=== PATIENT | female | born 1945 | race Caucasian/White ===

== ENCOUNTER 2021-12-22 21:03 | Emergency (ER) | payer MEDICARE, OTHER, SELFPAY ==
[2021-12-22 21:09] VITALS: BP 175/80; PULSE 86; RESP 16; O2SAT 99
--- OUTSIDE RECORDS SUMMARY | 2021-12-22 21:52 | XMS_ITS | Encounter Summary ---
:1945 Author Organization [facility] Address [address] [place] [address] Care Team Providers Name Role Phone Suhail Lemus M.D. Primary Care Provider Reason for Referral Outpatient (Routine) - Closed Specialty Diagnoses / Procedures Referred By Contact Refer red To Contact Family Medicine Kalie Nance APRN, [facility] Region C.N.P., D.N.P. [address] [place] [phone] Referral ID Status Reason Start Date Expiration Date Visits Requ ested Visits Authorized [id number] Closed 2021 2022 1 1 utpatient (Routine) - Authorized Specialty Diagnoses / Procedures Referred By Contact Refer red To Contact Kalie Nance APRN, C.N.PSariah, [facility] D.N.P. [address] [place] [phone] Referral ID Status Reason Start Date Expiration Date Visits V isits Requested Authorized [id number] Authorized 2021 2022 1 1 Reason for Visit Reason Comments Shortness of Breath Appointment Request (Routine) - Closed Specialty Diagnoses / Procedures Referred By Contact Refer red To Contact Family Medicine Referral ID Status Reason Start Date Expiration Date Visits Requ ested Visits Authorized [id number] Closed 09/14/2021 09/14/2022 1 1 Encounter Details Date Type Department Care Team Description 2021 Office Visit Department of Family Kalie Nance, Hy pertension Essential Primary (Primary Dx); MedicineRoni APRN, C.N.P., Apnea Slee p Obstructive; [facility], in D.N.P. Impaired Fasting Glucose; [place] [address] Screening L ipid; [facility] Morbid Obesity (HCC); [address] [place] [address] Body Mass Index 50.0 To 59.9 Adult (HCC); [place] [address] Insufficiency Venous [id number] Social History Tobacco Use Types Packs/Day Years Used Date Smoking Tobacco: Former Smokeless Tobacco: Never Alcohol Use Standard Drinks/Week Comments No 0 (1 standard drink = 0.6 oz pure alcoho l) Sex Assigned at Date Recorded Not on file documented as of this encounter Last Filed Vital Signs Vital Sign Reading Time Taken Comments Blood Pressure 177/88 2021 8:28 AM CDT Pulse 98 2021 7:56 AM CDT Temperature 36.6 ??C (97.9 ??F) 2021 7:56 AM CDT Respiratory Rate - - Oxygen Saturation 97% 2021 7:56 AM CDT Inhaled Oxygen Concentration - - Weight 128 kg (282 lb 3 oz) 2021 7:56 AM CDT Height 158.5 cm (5' 2.4) 2021 7:56 AM CDT Body Mass Index 50.95 2021 7:56 AM CDT documented in this encounter Progress Notes Kalie Nance APRN, C.N.P., D.N.P. - 2021 8:00 AM CDT SUBJECTIVE CHIEF COMPLAINT/REASON FOR VISIT Kristen Pederson is a 76 y.o. female who presents for evaluation of Shortness of Breath. HISTORY OF PRESENT ILLNESS Kristen Pederson presents for evaluation of elevated blood pressure, lower extremity swelling and shortness of breath. She reports that she was previously prescribed amlodipine to felt that itwas causing her lower extremity edema so she self discontinued this. She was previously on losartan for elevated blood pressure however this was discontinued, she is unsure why or when this was discontinued. She does not recall any specific negative side effects from this medication. She reports that she is motivated to lose weight. She has successfully lost several lb since her last visit. She has been working with her daughter for healthy dietary changes as they live together to achieve this. She has an area of erythema and healing blistering area over her left anterior moore. This is mildly itchy. OBJECTIVE PHYSICAL EXAMINATION Vital Signs: BP (!) 177/88 Pulse 98 Temp 36.6 ??C (Temporal) Ht 158.5 cm Wt 128 kg SpO2 97% BMI 50.95 kg/m?? Body mass index is 50.95 kg/m??. General: No acute distress. HEENT: Normocephalic. EOMI, PERRL, Canals patent, TMs normal. Oropharynx without lesion of mucosa. Neck: No nodes, no thyromegaly. No bruit auscultated. Heart: Regular rate and rhythm. No murmurs, gallops or rubs noted. Lungs: Non-labored breathing. Clear to auscultation bilaterally. No expiratory wheeze. Abdomen: Nontender to palpation. No hepato-splenomegaly. No mass. Normal bowel sounds in all 4 quadrants. Extremities: Bilateral lower extremities edema. No neurovascular compromise. No cyanosis, clubbing or edema. Skin: Left anterior moore has an area of erythema and blistering. Neuro: Alert and oriented x3, nonfocal, moving all 4 extremities. CN II-XII grossly intact. Psych: Affect is appropriate. ASSESSMENT / PLAN 1. Hypertension Essential Primary Blood pressure elevated today. Recommend treatment with losartan-HCTZ and recheck in two weeks. If it continues to be elevated, will increase dose to Losartan 50 and HCTZ 25mg pending lab stability. - Sodium; Future - Potassium; Future - Creatinine with Estimated GFR; Future 2. Apnea Sleep Obstructive Recommend 3. Impaired Fasting Glucose Will obtain labs at follow up in 2 weeks. - Hemoglobin A1c; Future 4. Screening Lipid Will obtain labs at follow up in 2 weeks. - Lipid Panel; Future 5. Morbid Obesity (HCC) 6. Body Mass Index 50.0 To 59.9 Adult (HCC) Lifestyle, diet, and exercise reviewed. Recommend modest calorie reduction, counting calories, increasing activity and consideration of use of apps to help with monitoring. Discussed initiating metformin and/or trulicity if her A1c is elevated to help with weight loss. 7. Veinous Insufficiency Recommend bilateral compression stockings. Topical steroid prescribed to reduce inflammation and swelling of this area. Patient was instructed to follow up in primary care if symptoms are worsening or there is no improvement over the next several days. Plan was discussed with patient and is in agreement with plan. All questions were answered, side effects of any/all new medications were discussed. Patient left in no acute distress. Ready to learn. No apparent learning barriers were identified. Learning preferences include listening. Explained diagnosis and treatment plan. Patient/Child/Caregiver expressed understanding of the content. Kalie Nance APRN, C.N.P., D.N.P. Total time: 26 minutes documented in this encounter Plan of Treatment Scheduled Referrals Name Type Priority Associated Order Schedule Diagnoses Primary care Outpatient Referral Routine Expected : hypertension nurse 2 visit (clinic) (Approximate) , Expires: 12/16/2022 Family Medicine Outpatient Referral Routine Expec arabella: office visit (clinic) 2021 (Approximate), Expires: 12/16/2022 documented as of this encounter Results (ABNORMAL) Lipid Panel (10/30/2021 9:29 AM CDT) P athologist Signature Triglycerides 126 mg/dL 10/30/2021 CNFL 9:56 AM CDT Comment: ----REFERENCE VALUE---- Normal: <150 mg/dL Borderline High: 150-199 mg/dL High: 200-499 mg/dL Very High: > or =500 mg/dL Cholesterol, Total 130 mg/dL 10/30/2021 9:56 AM CD T CNFL Comment: ----REFERENCE VALUE---- Desirable: < 200 mg/dL Borderline High: 200 - 239 mg/dL High: > or = 240 mg/dL Cholesterol, LDL, Calculated 75 mg/dL 10/30/2021 9:56 AM CDT CNFL Comment: ----REFERENCE VALUE---- Desirable: <100 mg/dL Above Desirable: 100-129 mg/dL Borderline High: 130-159 mg/dL High: 160-189 mg/dL Very High: >=190 mg/dL ----ADDITIONAL INFORMATION---- LDL cholesterol calculated using the Lindo/NIH equation. Cholesterol, HDL 32 (L) >=50 mg/dL 10/30/2021 9:56 AM CDT CNFL Cholesterol, Non-HDL, Calculated 98 mg/dL 022 9:56 AM CDT CNFL Comment: ----REFERENCE VALUE---- Desirable: <130 mg/dL Above Desirable: 130-159 mg/dL Borderline High: 160-189 mg/dL High: 190-219 mg/dL Very High: > or =220 mg/dL Fasting (8 HR or more) Yes 10/30/2021 9:29 A M CDT CNFL Specimen Anatomical Collection Method Collection Time Receive d Time (Source) Location / / Volume Laterality Blood (Blood, 10/30/2021 9:29 AM 10/31/19 9:29 Venous) CDT AM CDT Kalie Nance APRN C.N.P., D.N.P. LAB BLOOD ADD-ON Performing Organization Address City/State/ZIP Code Phon e Number [facility]- [address] [place] [address] [place] [address] [place] [address] System in [place] [address] [address] (ABNORMAL) Creatinine with Estimated GFR (10/30/2021 9:29 AM CDT) athologist Signature Creatinine 0.98 0.59 - 10/30/2021 CNFL 1.04 mg/dL 9:56 AM CDT eGFR-Black/Afric 65 >=60 10/30/2021 CNFL an [place] mL/min/BSA 9:56 AM CDT Comment: ----ADDITIONAL INFORMATION---- Estimated GFR calculated using the 2009 CKD_EPI creatinine equation. eGFR Non-Black/ 56 (L) >=60 mL/min/BSA 10/30/2021 9:56 AM CDT CNFL [place] Comment: ----ADDITIONAL INFORMATION---- Estimated GFR calculated using the 2009 CKD_EPI creatinine equation. Specimen Anatomical Collection Method Collection Time Receive d Time (Source) Location / / Volume Laterality Blood (Blood, 10/30/2021 9:29 AM 10/31/19 9:29 Venous) CDT AM CDT Brayan Brumfield APRN.N.P., D.N.P. LAB BLOOD ADD-ON Performing Organization Address [facility] Phon e Number [address] [address] [place] [address] System in [place] [address] [address] Potassium (10/30/2021 9:29 AM CDT) P athologist Signature Potassium, P 4.0 3.6 - 5.2 10/30/2021 CNFL mmol/L 9:56 AM CDT Specimen Anatomical Collection Method Collection Time Receive d Time (Source) Location / / Volume Laterality Blood (Blood, 10/30/2021 9:29 AM 10/31/19 9:29 Venous) CDT AM CDT Kalie Nance APRN, Brayan.N.P., D.N.P. LAB BLOOD ADD-ON Performing Organization Address [facility] Phon e Number [address] [place] [address] [place] [address] System in [place] [address] [address] Sodium (10/30/2021 9:29 AM CDT) P athologist Signature Sodium, P 138 135 - 145 10/30/2021 9:56 CNFL mmol/L AM CDT Specimen Anatomical Collection Method Collection Time Receive d Time (Source) Location / / Volume Laterality Blood (Blood, 10/30/2021 9:29 AM 10/31/19 9:29 Venous) CDT AM CDT Brayan Brumfield APRN.N.P., D.N.P. LAB BLOOD ADD-ON Performing Organization Address [facility] Phon e Number [facility]- [address] [place] [address] [place] [address] System [address] (ABNORMAL) Hemoglobin A1c (10/30/2021 9:27 AM CDT) P athologist Signature Hemoglobin A1c, 6.7 (H) 4.2 - 5.6 10/30/2021 CNFL B % 9:44 AM CDT Comment: Hemoglobin A1c values greater than or eq ual to 6.5 percent are diagnostic for diabetes mellitus. ?? Diagnosis should be confirmed by repeat testing. ??In diabet ic patients, HbA1c goals should be discussed with healthcar e provider. Specimen Anatomical Collection Method Collection Time Receive d Time (Source) Location / / Volume Laterality Blood (Blood, 10/30/2021 9:27 AM 10/31/19 9:29 Venous) CDT AM CDT Merry Brumfield APRNN.Zulma, D.N.P. LAB BLOOD ADD-ON Performing Organization Address [facility] Phon e Number [facility]- [address] [place] [address] [place] [address] System in [address] documented in this encounter Visit Diagnoses Diagnosis Hypertension Essential Primary - Primary Apnea Sleep Obstructive Impaired Fasting Glucose Screening Lipid Morbid Obesity (HCC) Body Mass Index 50.0 To 59.9 Adult (HCC) Insufficiency Venous documented in this encounter Additional Health Concerns Assessment Noted Time PHQ-9 Depression Total Score: 3 05/13/2013 2:06 PM 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 PCP - General Family Medicine 09/19/[address] [place] [phone] documented as of this encounter
--- OUTSIDE RECORDS SUMMARY | 2021-12-22 21:52 | XMS_ITS | Encounter Summary ---
:1945 Author Organization [facility] Address [address] [place] [address] Care Team Providers Name Role Phone Suhail Lemus M.D. Primary Care Provider Encounter Details Date Type Department Care Team Description 11/22/2021 Clinical Communication Department of Damir Hwang, Medicine, Roni Szymanski M.D. [facility], in [address] [phone] Social History Tobacco Use Types Packs/Day Years Used Date Smoking Tobacco: Former Smokeless Tobacco: Never Alcohol Use Standard Drinks/Week Comments No 0 (1 standard drink = 0.6 oz pure alcoho l) Sex Assigned at Date Recorded Not on file documented as of this encounter Plan of Treatment Not on filedocumented as of this encounter Visit Diagnoses Not on filedocumented in this encounter Additional Health Concerns Assessment Noted Time PHQ-9 Depression Total Score: 3 05/13/2013 2:06 PM POSTIE documented as of this encounter Care Teams Senior Mobile Web Developer Relationship Specialty Start Date End Date Suhail Lemus M.D. PCP - General Family Medicine 09/19/[address] [place] [phone] documented as of this encounter
--- OUTSIDE RECORDS SUMMARY | 2021-12-22 21:52 | XMS_ITS | Encounter Summary ---
:1945 Author Organization [facility] Address [address] [place] [address] Care Team Providers Name Role Phone Suhail Lemus M.D. Primary Care Provider Reason for Referral Outpatient (Routine) - Authorized Specialty Diagnoses / Procedures Referred By Contact Refer red To Contact Family Suhail Jiménez M. D. [address] [phone] Referral ID Status Reason Start Date Expiration Date Visits V isits Requested Authorized [id number] Authorized 11/22/2021 11/21/2024 1 1 Reason for Visit Reason Comments Follow-up Blood test and bp elevated s top taking medication can't lose weight, swelling of the ankles and f eet hated the blood pressure medication Outpatient (Routine) - Closed Specialty Diagnoses / Procedures Referred By Contact Refer red To Contact Family Medicine Kalie Nance APRN, [facility] C.N.P., D.N.P. [address] [place] [phone] Referral ID Status Reason Start Date Expiration Date Visits Requ ested Visits Authorized [id number] Closed 2021 2022 1 1 Encounter Details Date Type Department Care Team Description 11/22/2021 Office Visit Department of Suhail Hwang Hy pertension Essential Primary (Primary Dx); Reza Victoria M.D. Morbid Obesity (HCC); [facility], in [address] [place] [address] Leukocyt osis [address] [phone] [place] [phone] (Work) [phone] Social History Tobacco Use Types Packs/Day Years Used Date Smoking Tobacco: Former Smokeless Tobacco: Never Tobacco Cessation: Counseling Given: Not Answered Alcohol Use Standard Drinks/Week Comments No 0 (1 standard drink = 0.6 oz pure alcoho l) Sex Assigned at Date Recorded Not on file documented as of this encounter Last Filed Vital Signs Vital Sign Reading Time Taken Comments Blood Pressure 178/95 11/22/2021 7:53 AM CDT Pulse 106 11/22/2021 7:53 AM CDT Temperature 36.4 ??C (97.5 ??F) 11/22/2021 7:53 AM CDT Respiratory Rate - - Oxygen Saturation 97% 11/22/2021 7:53 AM CDT Inhaled Oxygen Concentration - - Weight 127 kg (279 lb 1.6 oz) 11/22/2021 7:53 AM CDT Height - - Body Mass Index 50.39 2021 7:56 AM CDT documented in this encounter Progress Notes Suhail Lemus M.D. - 11/22/2021 8:00 AM CDT SUBJECTIVE CHIEF COMPLAINT / REASON FOR VISIT Kristen is a 76 y.o. female who presents for evaluation of Follow-up (Blood test and bp elevated stop taking medication can't lose weight, swelling of the ankles and feet hated the blood pressure medication ). HISTORY OF PRESENT ILLNESS Kristen is a pleasant 76 y.o. female who presents to clinic today for ongoing evaluation of hypertension, swelling and obesity. She is been working hard towards weight loss but does have intermittent indiscretions. She is lost approximately 1 kg over the past two months. She states her swelling has persis arabella and does cause her limitations with walking. She is been recommended compression garments which he is not utilized. She is not been taking her blood pressure medication as she felt it increased herswelling. No lightheadedness, dizziness, headaches or chest pain. The following portions of the patient's history were reviewed and updated as appropriate: allergies,current medications, family history, medical history, social history, surgical history, and problem list. Brief Review of Systems: A brief review of systems was negative except for that mentioned in the history of present of illness. OBJECTIVE PHYSICAL EXAM BP (!) 178/95 (BP Location: Left arm, Patient Position: Sitting, Cuff Size: Large) Pulse 106 Temp 36.4 ??C (Temporal) Wt 127 kg SpO2 97% BMI 50.39 kg/m?? Body mass index is 50.39 kg/m??. GENERAL: Patient is in no distress. Capable of full communication without difficulty. Patient is polite and cooperative. HEART: Regular rate and rhythm. No murmurs, gallops or rubs noted. LUNGS: Clear to auscultation bilaterally. No expiratory wheeze. No accessory muscles of respiration noted. EXTREMITIES: No neurovascular compromise. 2+ pitting edema to below the knee bilateral. Dorsal pedalpulses present. NEURO: Alert and oriented x3, nonfocal, moving all 4 extremities. CN II-XII grossly intact. PSYCH: Affect is appropriate ASSESSMENT / PLAN #1 Hypertension Essential Primary Blood pressure significantly elevated above goal. Recommend restarting losartan 50 mg daily. Will also start Lasix 20 mg with potassium to help with both blood pressure and edema. Encouraged her to wear compression garments and elevate as this will also help. #2 Morbid Obesity (HCC) Discussed dietary lifestyle measures. Monitor. #3 Leukocytosis Will recheck CBC at next visit as patient is significantly concerned about her elevated white blood count seen in the emergency department. Will follow up with results once available. Total time 32 minutes. Patient was instructed to follow up in [...] plan. Patient/Child/Caregiver expressed understanding of the content. Suhail Lemus M.D. documented in this encounter Plan of Treatment Scheduled Orders Name Type Priority Associated Diagnoses Order S [facility] Basic Metabolic Panel Lab Routine Hypertension Essent ial Expected: 12/06/2021 Primary (Approximate), Morbid Obesity (HCC) Expires : 11/22/2022 CBC with Differential, Lab Routine Leukocytosis Expec arabella: 12/06/2021 Blood (Approximate), Expires: 2022 Scheduled Referrals Name Type Priority Associated Diagnoses Order S [facility] Family Medicine Outpatient Referral Routine Expec arabella: office visit 12/06/2021 (clinic) (Approximate), Expires: 02/21/2023 documented as of this encounter Visit Diagnoses Diagnosis Hypertension Essential Primary - Primary Morbid Obesity (HCC) Leukocytosis documented in this encounter Additional Health Concerns Assessment Noted Time PHQ-9 Depression Total Score: 3 05/13/2013 2:06 PM NUTRITION COUNSELOR documented as of this encounter Care Teams Inner Diameter Grinder Tool Relationship Specialty Start Date End Date Suhail Lemus M.D. PCP - General Family Medicine 09/19/[address] [place] [phone] documented as of this encounter
--- OUTSIDE RECORDS SUMMARY | 2021-12-22 21:52 | XMS_ITS | Clinical Summary ---
:1945 Author Organization [facility] [place] [address] Care Team Providers Name Role Phone Pcp, No Primary Care Provider Unavailable Allergies No known active allergies Medications Medication Sig Dispensed Refills Start Date End Date Status nystatin powder Apply 1 Strip 1 Bottle 1 04/23/2019 Active (MYCOSTATIN) topically to powderIndications: affected Rash area(s) 4 times daily. doxycycline Take 1 Capsule 90 Capsule 3 03/03/2021 A ctive (VIBRAMYCIN) 100 (100 mg) by mg mouth once capsuleIndications daily. : Rosacea fluticasone (50 Inhale 2 Sprays 16 g 11 03/03/2021 Active mcg per actuation) to both nasal solution nostrils 2 (FLONASE)Indicatio times daily. ns: Chronic pansinusitis azelaic acid To cheeks twice 50 g 03/03/2021 Active (FINACEA) 15 % daily for topical rosacea gelIndications: Rosacea amLODIPine Take 1 Tablet 90 tablet. 3 03/03/2021 Act molina (NORVASC) 10 mg (10 mg) by tabletIndications: mouth once Asymptomatic daily. hypertensive urgency ProAir HFA 90 INHALE 2 PUFFS 42.5 Each 2 11/24/2021 Active mcg/actuation BY MOUTH 4 inhalerIndications TIMES DAILY IF : Mild NEEDED FOR intermittent SHORTNESS OF asthma without BREATH 1ST complication CHOICE. albuterol HFA Inhale 2 Puffs 18 g 3 03/03/2021 Discontinued (ProAir HFA) 90 by mouth 4 2 mcg/actuation times daily if inhalerIndications needed for : Mild Shortness of intermittent Breath 1st asthma without choice. complication Active Problems Problem Noted Date Hypertension 10/21/2017 Morbid obesity with BMI of 50.0-59.9, adult 01/14/2014 Encounters Date Type Specialty Care Team Description 11/21/2021 Refill Roshan Norris MD Ref ill Request (Proair Hfa) from Last 3 Months Immunizations Name Administration Dates Next Due COVID-19 vaccine (Moderna 100mcg/0.5mL) 03/02/2021, 06/10/19 21, 05/11/2020 PFBUDDY Tdap 09/30/2017, 10/08/2011 Family History Medical History Relation Name Comments Heart Disease Father at age 45- smoked Other Father obese Other Mother obese Heart Disease Sister 1 at age 40 Cancer Sister 2 of lung cancer- smoked Relation Name Status Comments Father Mother Sister 1 Sister 2 Social History Tobacco Use Types Packs/Day Years Used Date Former Smoker Cigarettes 2 Quit: 2000 Smokeless Tobacco: Never Used Tobacco Cessation: Counseling Given: Yes Comments: quit many years ago Alcohol Use Standard Drinks/Week Comments No 0 (1 standard drink = 0.6 oz pure alcoho l) Sex Assigned at Date Recorded Not on file Obstetrics History Last Filed Vital Signs Vital Sign Reading Time Taken Comments Blood Pressure 145/86 03/03/2021 8:55 AM CATEGORY DIRECTOR Pulse 96 03/03/2021 8:48 AM CATEGORY DIRECTOR Temperature 36.8 ??C (98.2 ??F) 03/03/2021 8:48 AM CATEGORY DIRECTOR Respiratory Rate 18 03/03/2021 8:48 AM CATEGORY DIRECTOR Oxygen Saturation 95% 03/03/2021 8:48 AM CATEGORY DIRECTOR Inhaled Oxygen Concentration - - Weight 130.2 kg (287 lb) 04/23/2019 9:33 AM CATEGORY DIRECTOR Height 158 cm (5' 2.21) 12/17/2018 9:03 AM CDT Body Mass Index 52.15 12/17/2018 9:03 AM CDT Plan of Treatment Health Maintenance Due Date Last Done Comments Pneumococcal series for age 65+ (1 09/16/1951 - PCV) Zoster (shingles) series for age 0709/16/1995 50+ (1 of 2) DEXA/DXA scan for age 65+ 2010 Medicare Wellness for age 65+ 2010 BMI (ht and wt on same day) for 12/18/2019 12/17/2018, 10/16, age 18+ 10/23/2017, Additional history exists Depression screening for age 12+ 12/18/2019 12/17/2018, COVID-19 vaccine series (4 - 04/27/2021 03/02/2021, 021, Booster for Moderna series) 05/11/2020 Influenza for age 65+ 11/16/2021 Tetanus booster 10/01/2027 09/30/2017, 10/08/2011 Tdap Completed 09/30/2017, 10/08/2011 Hepatitis C screening for age Completed 04/23/2019 18-79 Results Not on filefrom Last 3 Months Insurance Payer Benefit Plan / Subscriber ID Effective Dates Phone Addre ss Type Group MEDICARE - PB MEDICARE PB [id number] 2010-Veronique ATTN : CLAIMS USE ONLY ONLY t [address] [place] [address] GM GUNDERSON [id number] 2004-Prese [facility] OFFICE OF [facility] ATTN: NEPTALI CLAIMS [address] [address] [place] [id number] (Home) [place] [phone] Care Teams Market Research Executive Relationship Specialty Start Date End Date Pcp, No PCP - General 02/23/21 .
--- OUTSIDE RECORDS SUMMARY | 2021-12-22 21:52 | XMS_ITS | Encounter Summary ---
:1945 Author Organization [facility] Address [address] [place] [address] Care Team Providers Name Role Phone Suhail Lemus M.D. Primary Care Provider Reason for Referral Outpatient (Routine) - Closed Specialty Diagnoses / Procedures Referred By Contact Refer red To Contact Diagnoses Dyspnea On Exertion Suhail Lemus M.D. [facility] [place] [facility] Procedures Echo Transthoracic (TTE) [address] [place] [phone] Referral ID Status Reason Start Date Expiration Date Visits Requ ested Visits Authorized [id number] Closed 07/05/2021 07/05/2022 1 1 Reason for Visit Outpatient (Routine) - Closed Specialty Diagnoses / Procedures Referred By Contact Refer red To Contact Diagnoses Dyspnea On Exertion Su[facility]ail [facility]us M.D. [facility] Procedures Echo Transthoracic (TTE) [address] [place] [phone] Referral ID Status Reason Start Date Expiration Date Visits Requ ested Visits Authorized [id number] Closed 07/05/2021 07/05/2022 1 1 Encounter Details Date Type Department Care Team Description 10/26/2021 Hospital Encounter Department of Mariah, Dyspnea On Exertion Radiology in [facility] [address] [place], [address] [place] [phone] Social History Tobacco Use Types Packs/Day Years Used Date Smoking Tobacco: Former Smokeless Tobacco: Never Alcohol Use Standard Drinks/Week Comments No 0 (1 standard drink = 0.6 oz pure alcoho l) Sex Assigned at Date Recorded Not on file documented as of this encounter Medications at Time of Discharge Medication Sig Dispensed Refills Start Date End Date artificial 1 drop 3 (three) 0 tears,hypromellose, times a day as (ISOPTO TEARS) 0.3 % needed. ophthalmic solution azelaic acid (FINACEA) 15 application. 0 03/03/20 21 15 % gel azelastine (ASTELIN) 137 Administer 2 sprays 30 mL 12 mcg/spray (0.1 %) nasal into each nostril 2 spray (two) times a day. Use in each nostril as directed fluticasone propionate Administer 2 sprays 1 Bottle 11 10/17 (FLONASE) 50 into each nostril mcg/actuation nasal daily. spray losartan-hydroCHLOROthia Take 1 tablet by 90 tablet 3 09/1509/15/2022 zide (HYZAAR) 50-12.5 mg mouth daily. per tablet naproxen sodium 220 mg Take 1 capsule by 0 2011 capsule mouth. nystatin (NYSTOP) Apply 1 strip 0 04/23/2019 100,000 unit/gram powder topically. ProAir HFA 90 INHALE 2 PUFFS EVERY 54 g 3 06/09/2020 mcg/actuation inhaler 4 HOURS NEEDED FOR WHEEZING OR SHORTNESS OF BREATH triamcinolone (KENALOG) Apply to affected 30 g 0 09/15 0.1 % cream area 1-2 times daily as needed. Avoid face and groin. documented as of this encounter Plan of Treatment Not on filedocumented as of this encounter Procedures Procedure Name Priority Date/Time Associated Diagnosis Comme nts (TTE) 2D ECHO Routine 10/26/2021 10:47 AM Dyspnea On Exertion Results for this DOPPLER COLOR CDT procedure are in the results section. documented in this encounter Results (TTE) 2D ECHO DOPPLER COLOR (10/26/2021 10:47 AM CDT) Analysis [facility] At [facility] Time Signature Ejection Fraction 69 MC CV EIMS Mid-Ascending 34 MC CV EIMS Aorta LV End-Diastolic 44 MC CV EIMS Diameter LV End-Systolic 26 MC CV EIMS Diameter MV E Velocity MC CV EIMS MV e' Velocity 0.10 MC CV EIMS Lateral Left ventricular 37 MC CV EIMS stroke volume index Cardiac Output 7.92 MC CV EIMS Cardiac Index 3.14 MC CV EIMS Tricuspid Annular 0.17 MC CV EIMS S? RA Pressure 5 MC CV EIMS AV mean gradient 5 MC CV EIMS Aortic valve area 2.84 MC CV EIMS Aortic Valve 0.82 MC CV EIMS Dimensionless Index Aortic Valve 1.60 MC CV EIMS Systolic Peak Velocity Anatomical Region Laterality Modality Echocardiography Specimen (Source) Anatomical Collection Method Collection Time Re ceived Time Location / / Volume Laterality 10/26/2021 9:45 AM CDT Impressions 10/26/2021 2:14 PM CDT Transthoracic outreach echo interpretation. IV start and Lumason was attempted but refused after 2 failed IV attempts. LEFT VENTRICLE:Hyperdynamic left ventric ular systolic function. Mid left ventricular maximal instantaneous Doppler gradient rest 7 mm Hg; Valsalva 21 mm Hg. Calculated 2-D linear left ventricular ejection fraction 69%. Indeterminate wall motion abnormalities due to poor visualization. Indeterminate left ventricular filling pressure. RIGHT VENTRICLE:Indeterminate right vent ricular chamber size. Indeterminate right ventricular systolic function. Unable to detect peak tricuspid regurgitation velocity for pulmonary artery systolic pressure calculation. ATRIA:Indeterminate left atrial size. In determinate right atrial size. CARDIAC VALVES:Aortic valve not well vis ualized. No aortic valve regurgitation. Mitral valve not well visualized. Trivial mitral valve regurgitation. Pulmonary valve not well visualized. Tricuspid valve not well visualized. Trivial tricuspid valve regurgitation. OTHER ECHO FINDINGS:Normal mid ascending aorta diameter of 34 mm. Abdominal aorta not visualized. Imaging inadequate for detection of atrial level shunt by color flow imaging. No intracardiac mass or thrombus, but the left atrial appendage cannot be visualized adequately with transthoracic echo to exclude thrombus in this location. No ??pericardial effusion. For the complete report, see the Order-L evel Documents. Narrative 10/26/2021 2:14 PM CDT For the complete report, see the Order-Level Documents. Final Impressions 1. Extremely challenging image quality w ith limited diagnostic imaging. 2. Indeterminate left ventricular chambe r size. 3. LV systolic function appears hyperdyn amic. Estimated LVEF range; 70% to 75%. 4. Indeterminate wall motion abnormaliti es due to poor visualization. 5. Indeterminate right ventricular chamb er size. Indeterminate RV systolic function. 6. Unable to detect peak tricuspid regur gitation velocity for pulmonary artery systolic pressure calculation. 7. Inferior vena cava appears small and collapsing consistent low central venous pressure and/or dehydration. 8. No hemodynamically significant valvul ar heart disease. 9. There are no previous ??echocardiogra ms available for comparison. Procedure Note Ha Perez M.D. - 10/26/2021Form atting of this note might be different from the original. For the complete report, see the Order-L evel Documents. Final Impressions 1. Extremely challenging image quality w ith limited diagnostic imaging. 2. Indeterminate left ventricular chambe r size. 3. LV systolic function appears hyperdyn amic. Estimated LVEF range; 70% to 75%. 4. Indeterminate wall motion abnormaliti es due to poor visualization. 5. Indeterminate right ventricular chamb er size. Indeterminate RV systolic function. 6. Unable to detect peak tricuspid regur gitation velocity for pulmonary artery systolic pressure calculation. 7. Inferior vena cava appears small and collapsing consistent low central venous pressure and/or dehydration. 8. No hemodynamically significant valvul ar heart disease. 9. There are no previous echocardiograms available for comparison. Findings Transthoracic outreach echo interpretati on. IV start and Lumason was attempted but refused after 2 failed IV attempts. LEFT VENTRICLE:Hyperdynamic left ventric ular systolic function. Mid left ventricular maximal instantaneous Doppler gradient rest 7 mm Hg; Valsalva 21 mm Hg. Calculated 2-D linear left ventricular ejection fraction 69%. Indeterminate wall motion abnormalities due to poor visualization. Indeterminate left ventricular filling pressure. RIGHT VENTRICLE:Indeterminate right vent ricular chamber size. Indeterminate right ventricular systolic function. Unable to detect peak tricuspid regurgitation velocity for pulmonary artery systolic pressure calculation. ATRIA:Indeterminate left atrial size. In determinate right atrial size. CARDIAC VALVES:Aortic valve not well vis ualized. No aortic valve regurgitation. Mitral valve not well visualized. Trivial mitral valve regurgitation. Pulmonary valve not well visualized. Tricuspid valve not well visualized. Trivial tricuspid valve regurgitation. OTHER ECHO FINDINGS:Normal mid ascending aorta diameter of 34 mm. Abdominal aorta not visualized. Imaging inadequate for detection of atrial level shunt by color flow imaging. No intracardiac mass or thrombus, but the left atrial appendage cannot be visu alized adequately with transthoracic echo to exclude thrombus in this location. No pericardial effusion. For the complete report, see the Order-L evel Documents. Suhail Lemus M.D. 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 PCP - General Family Medicine 09/19/[address] [place] [phone] documented as of this encounter
--- OUTSIDE RECORDS SUMMARY | 2021-12-22 21:52 | XMS_ITS | Encounter Summary ---
:1945 Author Organization [facility] Address [address] [place] [address] Care Team Providers Name Role Phone Suhail Lemus M.D. Primary Care Provider Reason for Visit Reason Comments upcoming test Medical Information Encounter Details Date Type Department Care Team Description 10/24/2021 Nurse Triage Department of Family Lauren Quesada upco iron test; Medical Medicine, [facility], in [place] [phone] [place], [place] ([address] [phone] Social History Tobacco Use Types Packs/Day Years Used Date Smoking Tobacco: Former Smokeless Tobacco: Never Alcohol Use Standard Drinks/Week Comments No 0 (1 standard drink = 0.6 oz pure alcoho l) Sex Assigned at Date Recorded Not on file documented as of this encounter Miscellaneous Notes Telephone Encounter - Lauren Quesada R.N. - 10/24/2021 12:02 PM CDT Pt calling to ask what ECHO test is; this was explained by triage. She also seemed unaware that there are upcoming labs and f/u visit w/ PCP next wk when these were reviewed-despite also reviewing lastvisit note that indicated recheck of labs/visit in 2 wks. 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 PCP - General Family Medicine 09/19/[address] [place] [phone] documented as of this encounter
--- OUTSIDE RECORDS SUMMARY | 2021-12-22 21:52 | XMS_ITS | Encounter Summary ---
:1945 Author Organization [facility] Address [address] [place] [address] Care Team Providers Name Role Phone Suhail Lemus M.D. Primary Care Provider Encounter Details Date Type Department Care Team Description 11/22/2021 Orders Only Department of Family Rajinder Lemus M.D. [address], in 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 PCP - General Family Medicine 09/19/[address] [place] [phone] documented as of this encounter
--- OUTSIDE RECORDS SUMMARY | 2021-12-22 21:52 | XMS_ITS | Encounter Summary ---
:1945 Author Organization [facility] Address [address] [place] [address] Care Team Providers Name Role Phone Suhail Lemus M.D. Primary Care Provider Encounter Details Date Type Department Care Team Description 10/30/2021 Clinical Communication Department of Damir Hwang, Medicine, Roni Szymanski M.D. [facility], in [address] [phone] Social History Tobacco Use Types Packs/Day Years Used Date Smoking Tobacco: Former Smokeless Tobacco: Never Alcohol Use Standard Drinks/Week Comments No 0 (1 standard drink = 0.6 oz pure alcoho l) Sex Assigned at Date Recorded Not on file documented as of this encounter Miscellaneous Notes Telephone Encounter - Trista Fernando, L.P.N. - 10/31/2021 10:21 AM CDT SUBJECTIVE CHIEF COMPLAINT / REASON FOR CALL No chief complaint on file. Information Discussed Contacted patient back to relay results from previous encounter on Echocardiogram and relayed The possibility of this was discussed at patients last appointment as her blood sugars have been consistently elevated over the past several checks, which is why we did the A1c to test for diabetes. She has a n upcoming visit with Dr. Lemus to discuss this and treatment options. This does not need any treatment at this time, but treatment options can be discussed with patient at her upcoming visit. States that her back has been bothering her ever since she started on the Hyzaar prescription which upon chart review was started on 2021. States that she stopped taking the prescription 4 days ago and noticed back pain resolved. PLAN Disposition/Recommendation: recommended continue engagement in self-management activities Information/Education: patient/caller able to teach back Caller agreeable to plan of care: yes The following references were used: nursing clinical judgement Telephone Encounter - Fouzia Dubon - 10/31/2021 10:03 AM CDT Reason for Communication: Patient called again - please call her back [phone] Telephone Encounter - Kalie Nance APRN, C.N.PSariah, D.N.P. - 10/31/2021 6:50 AM CDT The possibility of this was discussed at patients last appointment as her blood sugars have been consistently elevated over the past several checks, which is why we did the A1c to test for diabetes. She has an upcoming visit with Dr. Lemus to discuss this and treatment options. This does not need any treatment at this time, but treatment options can be discussed with patient at her upcoming visit. Telephone Encounter - Ciarra Shaw - 10/30/2021 4:59 PM CDT Reason for Communication: Type 2 Diabetes Current Can Nursing/Provider leave a detailed message?: no Did the patient refuse triage through Nurse line? (for symptom based concerns): n/a Action Needed: Patient called and is VERY upset. She states she had labs this morning and her daughter got a call stating patient has type 2 diabetes. She is unaware of any of this and wants someone tocall her MARIBEL Name of Medication (if relevant): n/a Please send all scheduling replies to scheduling pool. documented in this encounter Plan of Treatment Not on filedocumented as of this encounter Visit Diagnoses Not on filedocumented in this encounter Additional Health Concerns Assessment Noted Time PHQ-9 Depression Total Score: 3 05/13/2013 2:06 PM GOAL UMPIRE documented as of this encounter Care Teams Husbandry Technician Relationship Specialty Start Date End Date Suhail Lemus M.D. PCP - General Family Medicine 09/19/[address] [place] [phone] documented as of this encounter
--- OUTSIDE RECORDS SUMMARY | 2021-12-22 21:52 | XMS_ITS | Encounter Summary ---
:1945 Author Organization [facility] Address [address] [place] [address] Care Team Providers Name Role Phone Suhail Lemus M.D. Primary Care Provider Encounter Details Date Type Department Care Team Description 10/30/2021 Hospital Encounter Department of Kalie Nance Essential Primary; Laboratory Medicine M, GRAIN DISTRIBUTOR, Impaired Fasting Glucose; in [place], C.N.P., D.N.P. Screening Lipid [address] [phone] Social History Tobacco Use Types Packs/Day Years [...] (ASTELIN) 137 Administer 2 sprays 30 mL mcg/spray (0.1 %) nasal into each nostril 2 spray (two) times a day. Use in each nostril as directed fluticasone propionate Administer 2 sprays 1 Bottle 10/17 (FLONASE) 50 into each nostril mcg/actuation [...] Name Priority Date/Time Associated Diagnosis Comme nts LIPID PANEL, S Routine 10/30/2021 9:29 AM Screening Lipid Resu lts for this CDT procedure are i n the results section. SODIUM, S/P Routine 10/30/2021 9:29 AM Hypertension Results f or this CDT Essential Primary procedure are in the results section. POTASSIUM, S/P Routine 10/30/2021 9:29 AM Hypertension Results for this CDT Essential Primary procedure are in the results section. CREATININE WITH Routine 10/30/2021 9:29 AM Hypertension Result s for this EGFR, S/P CDT Essential Primary procedure are in the results section. HEMOGLOBIN A1C, B Routine 10/30/2021 9:27 AM Impaired Fasting Results for this CDT Glucose procedure are i n the results section. documented in this encounter Results (ABNORMAL) Lipid Panel (10/30/2021 [...] CDT CNFL Cholesterol, Non-HDL, Calculated 98 mg/dL 9:56 AM CDT CNFL Comment: ----REFERENCE VALUE---- [...] Venous) CDT AM CDT Kalie Nance APRN, C.N.P., D.N.P. LAB BLOOD ADD-ON Performing Organization Address City/State/ZIP Code Phon e Number [facility]- [address] [place] [address] [place] [address] [place] [address] System in [address] (ABNORMAL) Creatinine with Estimated GFR (10/30/2021 9:29 AM CDT) P athologist Signature Creatinine 0.98 0.59 - 10/30/2021 CNFL 1.04 mg/dL 9:56 AM CDT eGFR-Black/Afric 65 >=60 10/30/2021 CNFL an Macedonian mL/min/BSA 9:56 AM CDT Comment: ----ADDITIONAL INFORMATION---- Estimated GFR calculated using the 2009 CKD_EPI creatinine equation. eGFR Non-Black/ 56 (L) >=60 mL/min/BSA 10/30/2021 9:56 AM CDT [facility] Macedonian Comment: ----ADDITIONAL INFORMATION---- Estimated GFR calculated using the 2009 CKD_EPI creatinine equation. Specimen Anatomical Collection Method Collection Time Receive d Time (Source) Location / / Volume Laterality Blood (Blood, 10/30/2021 9:29 AM 10/31/19 9:29 Venous) CDT AM CDT Brayan Brumfield APRN.N.P., D.N.P. LAB BLOOD ADD-ON Performing Organization Address City/[facility] Phon e Number [phone] [place] [address] [place] [address] System in [place] [address] [address] Potassium (10/30/2021 9:29 AM CDT) P athologist Signature Potassium, P 4.0 3.6 - 5.2 10/30/2021 CNFL mmol/L 9:56 AM CDT Specimen Anatomical Collection Method Collection Time Receive d Time (Source) Location / / Volume Laterality Blood (Blood, 10/30/2021 9:29 AM 10/31/19 9:29 Venous) CDT AM CDT Kalie Nance APRN, Brayan.N.P., D.N.P. LAB BLOOD ADD-ON Performing Organization Address City/State/ZIP Code Phon e Number [address] [address] [place] [address] System in [place] [address] [address] Sodium (10/30/2021 9:29 AM CDT) P athologist Signature Sodium, P 138 135 - 145 10/30/2021 9:56 CNFL mmol/L AM CDT Specimen Anatomical Collection Method Collection Time Receive d Time (Source) Location / / Volume Laterality Blood (Blood, 10/30/2021 9:29 AM 10/31/19 9:29 Venous) CDT AM CDT Brayan Brumfield APRN.N.P., D.N.P. LAB BLOOD ADD-ON Performing Organization Address City/[facility]/ZIP Code Phon e Number [address] [address] [place] [address] System in [address] (ABNORMAL) Hemoglobin A1c (10/30/2021 9:27 AM CDT) P athologist Signature Hemoglobin A1c, 6.7 (H) 4.2 - 5.6 10/30/2021 CNND B % 9:44 AM CDT Comment: Hemoglobin [...] D.N.P. 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 PCP - General Family Medicine 09/19/[address] [place] [phone] documented as of this encounter
--- OUTSIDE RECORDS SUMMARY | 2021-12-22 21:52 | XMS_ITS | Clinical Summary ---
:1945 Author Organization [facility] Address [address] [place] [address] Care Team Providers Name Role Phone Suhail Lemus M.D. Primary Care Provider Source Comments Patient records contain information from all sites at [facility]. For routine questions regarding patient records, call [phone] during business hours, M-F 8:00 AM - 5:00 PM Central Time. Record requests for emergency care only can be directed to [phone] at any time.[facility] Allergies No known active allergies Medications Medication Sig Dispensed Refills Start Date End Date Status naproxen sodium 220 Take 1 capsule by 0 09/25/2011 Active mg capsule mouth. nystatin (NYSTOP) Apply 1 strip 0 04/23/2019 Active 100,000 unit/gram topically. powder artificial 1 drop 3 (three) 0 Ac tive tears,hypromellose, times a day as (ISOPTO TEARS) 0.3 % needed. ophthalmic solution fluticasone Administer 2 1 Bottle 11 11/06/2019 Acti ve propionate (FLONASE) sprays into each 50 mcg/actuation nostril daily. nasal spray azelastine (ASTELIN) Administer 2 30 mL 12 11/06/2019 Active 137 mcg/spray (0.1 sprays into each %) nasal spray nostril 2 (two) times a day. Use in each nostril as directed ProAir HFA 90 INHALE 2 PUFFS 54 g 3 06/09/2020 Active mcg/actuation EVERY 4 HOURS inhaler NEEDED FOR WHEEZING OR SHORTNESS OF BREATH azelaic acid 15 application. 0 03/03/2021 Active (FINACEA) 15 % gel losartan-hydroCHLORO Take 1 tablet by 90 tablet 3 2021 0 2022 Active thiazide (HYZAAR) mouth daily. 50-12.5 mg per tablet Additional Information Patient not taking. Reported on 11/22/2021 triamcinolone (KENALOG) Apply to affected 30 g 0 09/16/19 Active 0.1 % cream area 1-2 times daily as needed. Avoid face and groin. 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 Nonexudative Age-Related Macular Degeneration Unspecif ied Stage Bilateral 05/29/2019 Age Related Nuclear Cataract Bilateral 05/29/2019 Membrane Macula Epiretinal Left 05/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 11/22/2021 Clinical Family Javed Jiménez M.D. 10/30/2021 Hospital Encounter Laboratory Medicine Dillon Nance pertprice Essential Primary; Kalie Zelaya, Impaired Fastin g Glucose; ORDER MANAGER, Screening Lipid C.N.P., D.N.P. 10/30/2021 Clinical Family Javed Jiménez M.D. 10/26/2021 Hospital Encounter Cardiovascular Disease Mariah, Dyspnea On Exertion Vinicius Jang 10/24/2021 Nurse Triage Family Medicine Lauren Quesada upcoming marlee t; E, R.N. Medical Informa tion from Last 3 Months Immunizations Name Administration Dates Next Due Tdap 09/30/2017, 10/08/2011 Family History Medical History Relation Name Comments Glaucoma Sister Amblyopia Neg Hx Blindness Neg Hx Cataracts Neg Hx Diabetes Neg Hx Hypertension Neg Hx Macular degeneration Neg Hx Retinal degeneration Neg Hx Retinal detachment Neg Hx Relation Name Status Comments Sister Social History Tobacco Use Types Packs/Day Years Used Date Smoking Tobacco: Former Smokeless Tobacco: Never Tobacco Cessation: Counseling Given: Not Answered Alcohol Use Standard Drinks/Week Comments No 0 (1 standard drink = 0.6 oz pure alcoho l) Sex Assigned at Date Recorded Not on file Last Filed Vital Signs Vital Sign Reading Time Taken Comments Blood Pressure 178/95 11/22/2021 7:53 AM CDT Pulse 106 11/22/2021 7:53 AM CDT Temperature 36.4 ??C (97.5 ??F) 11/22/2021 7:53 AM CDT Respiratory Rate 18 08/16/2021 6:12 PM CDT Oxygen Saturation 97% 11/22/2021 7:53 AM CDT Inhaled Oxygen Concentration - - Weight 127 kg (279 lb 1.6 oz) 11/22/2021 7:53 AM CDT Height 158.5 cm (5' 2.4) 2021 7:56 AM CDT Body Mass Index 50.39 2021 7:56 AM CDT Plan of Treatment Health Maintenance Due Date Last Done Comments Visit: Chronic Disease, age 18+ 1945 Zoster Vaccines (1 of 2) 09/16/1995 Pneumococcal vaccine (65+ years) 2010 (1 - PCV) COVID-19 Vaccine (4 - Booster for 04/27/2021 03/02/2021, , Moderna series) 05/11/2020 Influenza Vaccine (#1) 2021 Office Visit for Blood Pressure 02/21/2022 11/22/2021 Check / Re-check Creatinine Level 10/30/2022 10/30/2021, 07/05/2021, 09/12/2020, Additional history exists Fasting Glucose for Diabetes 10/30/2022 10/30/2021, 022, Screening 09/12/2020, Additional history exists Potassium Level 10/30/2022 10/30/2021, 07/05/2021, 09/12/2020, Additional history exists Sodium Level 10/30/2022 10/30/2021, 07/05/2021, 09/12/2020, Additional history exists DTaP,Tdap,and Td Vaccines (3 - Td 10/01/2027 09/30/2017, or Tdap) Hepatitis C Screening Completed 09/30/2017 Depression Screening (Annual Completed 07/05/2021 PHQ-2) Fall Risk Screen (Annual) Completed 2021 Procedures Procedure Name Priority Date/Time Associated Diagnosis Comme nts LIPID PANEL, S Routine 10/30/2021 9:29 AM Screening Lipid Resu lts for this CDT procedure are i n the results section. CREATININE WITH Routine 10/30/2021 9:29 AM Hypertension Result s for this EGFR, S/P CDT Essential Primary procedure are in the results section. POTASSIUM, S/P Routine 10/30/2021 9:29 AM Hypertension Results for this CDT Essential Primary procedure are in the results section. SODIUM, S/P Routine 10/30/2021 9:29 AM Hypertension Results f or this CDT Essential Primary procedure are in the results section. HEMOGLOBIN A1C, B Routine 10/30/2021 9:27 AM Impaired Fasting Results for this CDT Glucose procedure are i n the results section. (TTE) 2D ECHO Routine 10/26/2021 10:47 Dyspnea On Exertion Res ults for this DOPPLER COLOR AM CDT procedure are in the results section. from Last 3 Months Results (ABNORMAL) Lipid Panel (10/30/2021 9:29 AM [...] Organization Address City/State/ZIP Code Phon e Number [place] [address] [place] [address] [place] [address] System in [place] [address] Sodium (10/30/2021 9:29 AM CDT) P athologist Signature Sodium, P 138 135 - 145 10/30/2021 9:56 CNFL mmol/L AM CDT Specimen Anatomical Collection Method Collection Time Receive d Time (Source) Location / / Volume Laterality Blood (Blood, 10/30/2021 9:29 AM 10/31/19 9:29 Venous) CDT AM CDT Brayan Brumfield APRN.N.P., D.N.P. LAB BLOOD ADD-ON Performing Organization Address City/[facility] Phon e Number [address] [address] [place] [address] System in [place] [address] Potassium (10/30/2021 9:29 AM CDT) athologist Signature Potassium, P 4.0 3.6 - 5.2 10/30/2021 CNFL mmol/L 9:56 AM CDT Specimen Anatomical Collection Method Collection Time Receive d Time (Source) Location / / Volume Laterality Blood (Blood, 10/30/2021 9:29 AM 10/31/19 9:29 Venous) CDT AM CDT Brayan Brumfield APRN.N.P., D.N.P. LAB BLOOD ADD-ON Performing Organization Address City/[facility] Phon e Number [address] [address] [place] [address] (ABNORMAL) Creatinine with Estimated GFR (10/30/2021 9:29 AM CDT) athologist Signature Creatinine 0.98 0.59 - 10/30/2021 CNFL 1.04 mg/dL 9:56 AM CDT eGFR-Black/Afric 65 >=60 10/30/2021 CNFL an [place] mL/min/BSA 9:56 AM CDT Comment: ----ADDITIONAL INFORMATION---- Estimated GFR calculated using the 2009 CKD_EPI creatinine equation. eGFR Non-Black/ 56 (L) >=60 mL/min/BSA 10/30/2021 9:56 AM CDT CNFL [place] Comment: ----ADDITIONAL INFORMATION---- Estimated GFR calculated using the 2009 CKD_EPI creatinine equation. Specimen Anatomical Collection Method Collection Time Receive d Time (Source) Location / / Volume Laterality Blood (Blood, 10/30/2021 9:29 AM 10/31/19 9:29 Venous) CDT AM CDT Kalie Nance APRN, C.N.P., D.N.P. LAB BLOOD ADD-ON Performing Organization Address City/[facility]/ZIP Code Phon e Number [address] [address] [place] [address] System in [address] (ABNORMAL) Hemoglobin A1c (10/30/2021 9:27 AM [...] D.N.P. LAB BLOOD ADD-ON Performing Organization Address City/[facility] Code Phon e Number [address] [address] [place] [address] System [address] (TTE) 2D ECHO DOPPLER COLOR (10/26/2021 10:47 AM CDT) Analysis Performed At Patho logist Time Signature Ejection Fraction 69 MC [...] Documents. Suhail Lemus M.D. CV ECHO PROCEDURES from Last 3 Months Insurance Payer Benefit Plan Subscriber ID Effective Phone Address Typ e / Group Dates MEDICARE MEDICARE A [id number] 2010-Prese [address] Medicare AND [place] [address] FOR FOR [id number] [address]-[facility] [phone] [address] Indemnity LIFE LIFE ent [phone] [place] [address] [phone] [facility] [place] [phone] Care Teams Swing Grinder Relationship Specialty Start Date End Date Suhail Lemus M.D. PCP - General Family Medicine 09/19/[address] [place] [phone]
--- OUTSIDE RECORDS SUMMARY | 2021-12-22 21:53 | XMS_ITS | Encounter Summary ---
:1945 Author Organization [facility] Address [address] [place] [address] Care Team Providers Name Role Phone Suhail Lemus M.D. Primary Care Provider Encounter Details Date Type Department Care Team Description 08/31/2020 Clinical Communication Department of [facility] Chirag flores M.D. [place] [address] [address] [facility], in [address] [phone] (Wo rk) [place] [address] [place] [phone] Social History Tobacco Use Types Packs/Day Years Used Date Smoking Tobacco: Never Smokeless Tobacco: Never Alcohol Use Standard Drinks/Week Comments No 0 (1 standard drink = 0.6 oz pure alcoho l) Sex Assigned at Date Recorded Not on file documented as of this encounter Miscellaneous Notes Telephone Encounter - Elijah Talamantes - 08/31/2020 10:52 AM CDT What is the purpose of the call?: Standard Appointment Process Standard Appointment Process Have you tested positive for COVID-19 in the last 20 days OR do you have a pending COVID-19 test because you had symptoms?: No, neither apply What region is the appointment being requested?: Less than 14 days [place] In the past 14 days are any of the following symptoms new to you and not related to an existing health condition?: No symptoms noted In the past 14 days have you had close contact* with a person who has a LABORATORY CONFIRMED case ofCOVID-19?: No exposure noted, follow appt process (End Screening) Testing Recommendation Endpoint Is testing recommended? : Not recommended to test Plan: Endpoint recommendation: Followed regional OTG *Reminder if sending patient for testing in [facility] or [facility], route encounter to the correct testing pool. documented in this encounter Plan of Treatment Not on filedocumented as of this encounter Visit Diagnoses Not on filedocumented in this encounter Additional Health Concerns Assessment Noted Time PHQ-9 Depression Total Score: 3 05/13/2013 2:06 PM X RAY TECHNOLOGIST documented as of this encounter Care Teams Care Team Assistant Relationship Specialty Start Date End Date Suhail Lemus M.D. PCP - General Family Medicine 09/19/[address] [place] [phone] documented as of this encounter
--- OUTSIDE RECORDS SUMMARY | 2021-12-22 21:53 | XMS_ITS | Encounter Summary ---
:1945 Author Organization [facility] Address [address] [place] [address] Care Team Providers Name Role Phone Suhail Lemus M.D. Primary Care Provider Encounter Details Date Type Department Care Team Description 07/06/2021 Orders Only Department of Family Rajinder Lemus M.D. 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 PCP - General Family Medicine 09/19/[address] [place] [phone] documented as of this encounter
--- OUTSIDE RECORDS SUMMARY | 2021-12-22 21:53 | XMS_ITS | Encounter Summary ---
:1945 Author Organization [facility] Address [address] [place] [address] Care Team Providers Name Role Phone Suhail Lemus M.D. Primary Care Provider Reason for Visit Reason Onset Date Comments Testing For Upper Respiratory Virus Symptoms 03/17/2020 Encounter Details Date Type Department Care Team Description 03/17/2020 External Outreach Department of [facility], In [facility] Medicine, Chirag Hyde Respiratory (Pr imary Professional and P.A.-C. Dx) [facility] in [address] [place] [address] [address] [place], [place] [phone] (Work) [phone] Social History Tobacco Use Types Packs/Day Years Used Date Smoking Tobacco: Never Smokeless Tobacco: Never Alcohol Use Standard Drinks/Week Comments No 0 (1 standard drink = 0.6 oz pure alcoho l) Sex Assigned at Date Recorded Not on file documented as of this encounter Progress Notes Angie Moore, RCharles. - 03/17/2020 12:31 PM CST Encounter created for symptomatic infectious disease screening with possible COVID, Influenza, and RSV testing. PULLER documented in this encounter Plan of Treatment Not on filedocumented as of this encounter Procedures Procedure Name Priority Date/Time Associated Diagnosis Comme nts INFLUENZA A/B AND Routine 03/17/2020 12:40 PM Infection Upper Results for this RSV, PCR, VARIES PAN PULLER Respiratory procedure a re in the results section. SARS CORONAVIRUS-2 Routine 03/17/2020 12:40 PM Infection Upper Results for this RNA, V PAN PULLER Respiratory procedure are i n the results section. documented in this encounter Results Influenza A/B and RSV, PCR, Varies (03/17/2020 12:40 PM PAN PULLER) [facility] [employer] Method Time Signature Influenza A/B Swab, 03/19/2020 DTL and RSV, Nasopharynx 8:00 PM PAN PULLER Source Influenza A, Undetected Undetected 03/19/2020 DTL PCR 8:00 PM PAN PULLER Comment: Influenza A RNA absent. Influenza B, PCR Undetected Undetected 03/19/2020 8:00 PM CS T DTL Comment: Influenza B RNA absent. Respiratory Syncytial Virus, PCR Undetected Undetected 04/2020 8:00 PM PAN PULLER DTL Comment: RSV RNA absent. ----ADDITIONAL INFORMATION---- This test has been modified from the man ufacturer's instructions. Its performance characteristics were determi david by [facility] in a manner consistent with CLIA requirements. This test has not been cleared or approved by the U.S. Food and Drug Administration . Specimen Anatomical Collection Method Collection Time Receive d Time (Source) Location / / Volume Laterality Varies 03/17/2020 12:40 03/19/2020 7:24 (Nasopharynx) PM PAN PULLER AM PAN PULLER Chirag Fernández P.A.-C. LAB MICROBIOLOGY - GENERAL O RDERABLES Performing Organization Address City/State/ZIP Code Phon e Number [facility] - [address] [place], [place] [address] [facility] [place] [address] [facility] [address] [facility] SARS Coronavirus-2 RNA, V Symptomatic (03/17/2020 12:40 PM PAN PULLER) [facility] [employer] Method Time Signature SARS-CoV-2 Swab, 03/18/2020 ECLR Specimen Nasopharynx 2:38 PM PAN PULLER Source SARS CoV-2 Undetected Undetected 03/18/2020 ECLR RNA, TMA 2:38 PM PAN PULLER Comment: SARS-CoV-2 RNA absent. This result does not rule out COVID-19 in the patient, as the sensitivity of the test depends o n the timing of the specimen collection and the quality of the specim en. Result should be correlated with patient's history and clinical presentat ion. ----ADDITIONAL INFORMATION---- This molecular amplification test was pe rformed using the Aptima SARS-CoV-2 assay ([employer] on the [employer] tem under emergency use authorization (EUA) by the U.S. Food and Drug Administ ration. Fact sheets for this EUA assay can be fo und at the following links: For Healthcare Providers: https://www.fd a.gov/media/083832/download For Patients: https://www.fda.gov/media/ 178283/download Specimen Anatomical Collection Method Collection Time Receive d Time (Source) Location / / Volume Laterality Varies 03/17/2020 12:40 03/17/2020 (Nasopharynx) PM PAN PULLER 10:13 PM PAN PULLER Chirag Fernández P.A.-C. LAB MICROBIOLOGY - GENERAL O [place] Performing Organization Address City/State/ZIP Code Phon e Number [facility]- [address] [place] [address] [place] [address] [place] [address] System [address] documented in this encounter Visit Diagnoses Diagnosis Infection Upper Respiratory - Primary documented in this encounter Additional Health Concerns Infection Onset Date Last Indicated Resolved Time COVID19 Pending 03/17/2020 03/17/2020 03/18/2020 2:39 PM PAN PULLER Assessment Noted Time PHQ-9 Depression Total Score: 3 05/13/2013 2:06 PM PAN PULLER documented as of this encounter Care Teams Coffee Weigher Relationship Specialty Start Date End Date Suhail Lemus M.D. PCP - General Family Medicine 09/19/[address] [place] [phone] documented as of this encounter
--- OUTSIDE RECORDS SUMMARY | 2021-12-22 21:53 | XMS_ITS | Encounter Summary ---
:1945 Author Organization [facility] Address [address] [place] [address] Care Team Providers Name Role Phone Suhail Lemus M.D. Primary Care Provider Encounter Details Date Type Department Care Team Description 02/09/2020 Hospital Encounter Department of [facility] in Roni Loya M.D. [address] [phone] Social History Tobacco Use Types Packs/Day Years [...] (ISOPTO TEARS) 0.3 % needed. ophthalmic solution azelastine (ASTELIN) Administer 2 sprays 30 mL 12 2019 137 mcg/spray (0.1 %) into each nostril 2 nasal spray (two) times a day. Use in each nostril as directed fluticasone propionate Administer 2 sprays 1 Bottle 10/17 (FLONASE) 50 into each nostril mcg/actuation nasal daily. spray naproxen sodium 220 mg Take 1 capsule by 0 2011 capsule mouth. nystatin (NYSTOP) Apply 1 strip 0 04/23/2019 100,000 unit/gram topically. powder albuterol (PROVENTIL Inhale 2 puffs every 1 Inhaler 0 03/2109/15/2021 HFA,VENTOLIN HFA) 90 4 (four) hours as mcg/actuation inhaler needed (wheezing, cough, or shortness of breath). amLODIPine (NORVASC) 10 Take 1 tablet (10 mg 90 tablet 3 09/16/2020 mg tablet total) by mouth daily. doxycycline hyclate Take 1 capsule (100 20 capsule 0 020 2021 (VIBRAMYCIN) 100 mg mg total) by mouth 2 capsule (two) times a day. fluconazole (DIFLUCAN) Take 1 tablet (150 mg 2 tablet 0 09/14/2020 150 mg tablet total) by mouth See Admin Instructions. Take one tab now. Repeat in 7 days if symptoms persist. HYDROcodone-acetaminoph Take 1-2 tablets by 0 09/201109/14/2020 en (NORCO) 10-325 mg mouth. per tablet losartan (COZAAR) 25 mg Take 1 tablet (25 mg 90 tablet 3 2021 tablet total) by mouth daily. PROAIR HFA 90 INHALE 2 PUFFS EVERY 54 g 3 02/04/2019 0 06/09/2020 mcg/actuation inhaler 4 HOURS NEEDED FOR WHEEZING OR SHORTNESS OF BREATH documented as of this encounter Plan of Treatment Not on filedocumented as of this encounter Procedures Procedure Name Priority Date/Time Associated Comments Diagnosis INTRAVITREAL Routine 02/09/2020 8:59 AM Tributary Branch Resul ts for this INJECTION, TYPE CASTING MACHINE OPERATOR Retinal Vein procedure are i n PHARMACOLOGIC AGENT - Occlusion With the results OD - RIGHT EYE Macular Edema Right sectio n. documented in this encounter Results Intravitreal Injection, Pharmacologic Agent - OD - Right Eye (02/09/2020 8:59 AM TYPE CASTING MACHINE OPERATOR) Specimen (Source) Anatomical Location Collection Method / Collectio n Time Received Time / Laterality Volume Narrative Tee Quigley M.D. - 02/09/2020 9:09 AM TYPE CASTING MACHINE OPERATOR Pre-Procedure Verification Pre-procedure verification conducted to verify correct patient identity, procedure to be performed and, as applic able, correct side and site. Patient ID band validated and present. P atient consent obtained. 02/09/2020. Time Out Confirmed correct patient, procedure, si te, and patient consented. Anesthesia Topical anesthesia was used. Pre/Post Pr ocedure prep and meds used were Povidone 5% 1-10 drops, Povidone 10% swa bs x 3 to lids and lashes, Tetracaine 0.5% 1-10 drops. Procedure Details Injection: 1.25 mg bevacizumab intravitreal injecti on (AVASTIN) ??[facility]: [id number], Lot: [id number], Expi ration date: 03/14/2020 ??Route: intravitreal, Site: Right Eye Balanced salt solution irrigation to inj ected eye after the injection was Done. Hand motion was present. Count fin gers was correct. Ancillary Staff Ancillary Staff: ?? Junie Hawk RN. Notes PROCEDURE: Avastin injection to the Right eye. ?? CONSENT Informed consent was obtained. ?? PROCEDURE INFORMATION The patient was taken to the exam room. ??3 drops of tetracaine instilled into the eye, allowing ??1 minutes in be tween drops. ??1 drop of betadine instilled in the Right eye. ??A Betadine skin prep to the lids, lashes, and periocular adnexa performed. ??Site perico ing is performed over the correct eye. Mask was placed. ??Pre-procedural p ause performed, identifying the patient by name, date of , and site verified by the perico above the eye. ??Sterile gloves were placed. A aurelio p of 5% betadine ophthalmic placed in the eye. ??A sterile lid speculum santhosh martha. ??The globe was marked inferior temporal 3.5 - 4.0 mm posterior to the c orneoscleral lumbus, to which 0.05 mL of Avastin was injected. ??Another dr op of 5% betadine ophthalmic was then placed. ??The lid speculum was sarah mavis. ?? Post injection vision was verified to be at least count fingers. ?? POST-PROCEDURE INFORMATION Patient was discharged to home. ??Rechec k again as scheduled. Dr. Tee Quigley Tee Quigley M.D. 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 PCP - General Family Medicine 09/19/[address] [place] [phone] documented as of this encounter
--- OUTSIDE RECORDS SUMMARY | 2021-12-22 21:53 | XMS_ITS | Encounter Summary ---
:1945 Author Organization [facility] Address [address] [place] [id number] Care Team Providers Name Role Phone Suhail Lemus M.D. Primary Care Provider Reason for Visit Reason Comments Lasix Encounter Details Date Type Department Care Team Description 02/25/2020 Clinical Communication Department of Damir Hwang, [facility], [place] [facility], in [address] [phone] Social History Tobacco Use Types Packs/Day Years Used Date Smoking Tobacco: Never Smokeless Tobacco: Never Alcohol Use Standard Drinks/Week Comments No 0 (1 standard drink = 0.6 oz pure alcoho l) Sex Assigned at Date Recorded Not on file documented as of this encounter Miscellaneous Notes Telephone Encounter - Jen Qugiley R.N. - 02/25/2020 3:40 PM CST SUBJECTIVE CHIEF COMPLAINT / REASON FOR CALL Lasix Information Discussed Pt contacted and notified of provider recommendations. PLAN Disposition/Recommendation: patient transferred to the appointment desk Information/Education: patient/caller able to teach back Caller agreeable to plan of care: yes The following references were used: provider Lise Wang [employer] Telephone Encounter - Lise Wang, P.A. - 02/25/2020 3:07 PM CST Would need visit and cardiac testing first as we discussed. Lise Duarte [employer] Telephone Encounter - Mariam Michaud - 02/25/2020 2:25 PM CST Pt states that the last time she was in, Lise wanted to start her on lasix, but she didn't think sheneeded it. She is experiencing swelling in her feet now and would like to start the medication. Preferred pharmacy is [facility] on [facility]. 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 PCP - General Family Medicine 09/19/[address] [place] [phone] documented as of this encounter
--- OUTSIDE RECORDS SUMMARY | 2021-12-22 21:53 | XMS_ITS | Encounter Summary ---
:1945 Author Organization [facility] Address [address] [place] [id number] Care Team Providers Name Role Phone Suhail Lemus M.D. Primary Care Provider Reason for Visit Reason Comments Results Encounter Details Date Type Department Care Team Description 07/07/2021 Clinical Communication Department of Damir Hwang, [facility] Medicine, [facility], in [address] [phone] Social History Tobacco Use Types Packs/Day Years Used Date Smoking Tobacco: Former Smokeless Tobacco: Never Alcohol Use Standard Drinks/Week Comments No 0 (1 standard drink = 0.6 oz pure alcoho l) Sex Assigned at Date Recorded Not on file documented as of this encounter Miscellaneous Notes Telephone Encounter - Kika Johnston LSariahPSariahN. - 07/07/2021 10:56 AM CDT This was taken care of this morning. See Test results note message. Telephone Encounter - Melissa Gorman - 07/07/2021 9:31 AM CDT Kristen called to check the status of her test results. A nurse told her that she would get a call backyesterday afternoon. She is anxious to get her results, and is very frustrated. Please contact Kristen, at [phone]. We may leave a detailed message, should we receive her voicemail. Telephone Encounter - Elijah Talamantes - 07/07/2021 8:04 AM CDT TEST RESULT QUESTION: Type of test: Several labs with x-rays Date of test: 07/05 Which provider/department ordered the test? Mariah Comments: Please call back at [phone]. Route to [facility] pool of ordering provider. 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 PCP - General Family Medicine 09/19/[address] [place] [phone] documented as of this encounter
--- OUTSIDE RECORDS SUMMARY | 2021-12-22 21:53 | XMS_ITS | Encounter Summary ---
:1945 Author Organization [facility] Address [address] [place] [address] Care Team Providers Name Role Phone Suhail Lemus M.D. Primary Care Provider Reason for Referral Outpatient (Routine) - Closed Specialty Diagnoses / Procedures Referred By Contact Refer red To Contact Emergency Medicine Diagnoses Pain Back Diarrhea Radha Conde, [facility] CANELO C.N.P., D.N.P. [address] [place] [phone] Referral ID Status Reason Start Date Expiration Date Visits Requ ested Visits Authorized [id number] Closed 09/12/2020 09/12/2021 1 1 Reason for Visit Reason Comments Back Pain presents with left lower genaro k pain that she awoke with this morning Encounter Details Date Type Department Care Team Description 09/12/2020 Emergency [facility] Nick Patricia Pain Back (Primary Dx); Department Darell PALMER M.D. Diarrhea [id number] [phone] (Wo rk) Social History Tobacco Use Types Packs/Day Years Used Date Smoking Tobacco: Never Smokeless Tobacco: Never Alcohol Use Standard Drinks/Week Comments No 0 (1 standard drink = 0.6 oz pure alcoho l) Sex Assigned at Date Recorded Not on file documented as of this encounter Last Filed Vital Signs Vital Sign Reading Time Taken Comments Blood Pressure 152/100 09/12/2020 5:30 PM CDT Pulse 85 09/12/2020 5:30 PM CDT Temperature 36.8 ??C (98.2 ??F) 09/12/2020 5:28 PM CDT Respiratory Rate 16 09/12/2020 5:28 PM CDT Oxygen Saturation 98% 09/12/2020 5:30 PM CDT Inhaled Oxygen Concentration - - Weight 132 kg (291 lb 0.1 oz) 09/12/2020 5:29 PM CDT Height - - Body Mass Index 54.24 11/06/2019 12:57 PM CDT documented in this encounter Discharge Instructions Discharge InstructionsRadha Prado APRN, C.N.P. - 09/12/2020 8:00 PM CDT Electronic referral was submitted to the primary care clinic for follow-up; they will call you to schedule. Return to the ED immediately for worsening symptoms. See attached instructions for general cares, including food choices to help relieve diarrhea. Return your stool sample to our lab at your earliest convenience. If you require treatment based on these results, we will call you. AttachmentsThe following attachments cannot be sent through Care Everywhere. Diarrhea Adult [id number] (Marshallese)Food Choices to Help Relieve Diarrhea Adult (Marshallese)Chronic Back Pain (Marshallese)documented in this encounter Medications at Time of Discharge [...] strip 0 04/23/2019 100,000 unit/gram topically. powder ProAir HFA 90 INHALE 2 PUFFS EVERY 54 g 3 06/09/2020 mcg/actuation inhaler 4 HOURS NEEDED FOR WHEEZING OR SHORTNESS OF BREATH albuterol (PROVENTIL Inhale 2 puffs every 1 Inhaler 0 03/2109/15/2021 HFA,VENTOLIN HFA) 90 4 (four) hours as mcg/actuation inhaler needed (wheezing, cough, or shortness of breath). amLODIPine (NORVASC) 10 Take 1 tablet (10 mg 90 tablet 3 09/16/2020 mg tablet total) by mouth daily. azithromycin TAKE 2 TABLETS DAILY 0 06/08/2020 (ZITHROMAX) 250 mg FOR 1 DAY THEN TAKE 1 tablet TABLET DAILY FOR 4 DAYS doxycycline hyclate Take 1 capsule (100 20 [...] 3 2021 tablet total) by mouth daily. predniSONE (DELTASONE) TAKE 3 TABLETS DAILY 0 09/14/2020 20 mg tablet FOR 2 DAYS THEN TAKE TWO TABLETS DAILY FOR 2 DAYS THEN TAKE ONE TABLET DAILY FOR 2 DAYS THEN STOP documented as of this encounter ED Notes Radha Prado, CANELO, C.N.P. - 09/12/2020 7:01 PM CDT Care of patient transferred to tn by Peggy Patricia MD. Disposition pending CT abdomen/pelvis with IV contrast. 74-year-old female is received at shift handoff away from the unit (in radiology for CT abdomen/pelvis with IV contrast) having presented last shift with complaints of suddenly worsening chronic low back pain and explosive diarrhea that woke her from sleep. Patient has not required pain medication during her evaluation. Diagnostic results reviewed. Has a neutrophilic predominant leukocytosis of 11.5 and CRP of 10.3; otherwise, workup relatively unrevealing including lumbar plain films. Negative TUNAFISH for back pain red flags for cauda equina and epidural abscess. VITAL SIGNS BP (!) 152/100 Pulse 85 Temp 36.8 ??C (Temporal) Resp 16 Wt 132 kg SpO2 98% BMI 54.24 kg/m?? ED Course as of Sep 13 2019SatSep 12, [id number] Preliminary radiology report per [facility]: Hepatic steatosis. Colonic diverticulosis is present without diverticulitis 1956 Patient reassessed. Reports pain significantly improved without intervention and would like to discharge home. Final Diagnoses: as of Sep 13 2019 Pain Back Diarrhea I am reassured by her spontaneous relief and stated desire to discharge home. Will discharge home with a GI pathogen panel to return at her earliest convenience. Submitted an electronic referral for follow-up in the primary care clinic. Strict return precautions. All questions answered and concerns ad dressed. Radha Prado APRN, C.N.P. 09/12/202051 Best Patricia III, M.D. - 09/12/2020 6:12 PM CDT SUBJECTIVE CHIEF COMPLAINT/REASON FOR VISIT Back Pain (presents with left lower back pain that she awoke with this morning) HISTORY OF PRESENT ILLNESS History provided by: Patient Back Pain Location: Lumbar spine Quality: Stabbing and aching Radiates to: L knee and L thigh Pain severity: Moderate Onset quality: Gradual Duration: 1 day Timing: Constant Progression: Worsening Chronicity: Chronic Context: recent illness Relieved by: Nothing Worsened by: Movement and bending Ineffective treatments: Ibuprofen, OTC medications and being still Associated symptoms: abdominal pain, bladder incontinence, bowel incontinence and leg pain Associated symptoms: no chest pain, no dysuria, no fever, no headaches, no numbness, no paresthesiasand no tingling Risk factors: lack of exercise and obesity REVIEW OF SYSTEMS Constitutional: Positive for chills. Negative for fatigue and fever. HENT: Negative for congestion and sore throat. Respiratory: Negative for cough and shortness of breath. Cardiovascular: Negative for chest pain, palpitations and leg swelling. Gastrointestinal: Positive for abdominal pain, bowel incontinence, diarrhea and nausea. Negative forconstipation. Endocrine: Positive for polydipsia. Negative for polyphagia and polyuria. Genitourinary: Positive for bladder incontinence and frequency. Negative for dysuria. Musculoskeletal: Positive for back pain. Negative for arthralgias and myalgias. Skin: Negative for color change. Allergic/Immunologic: Negative for environmental allergies, food allergies and immunocompromised state. Neurological: Negative for tingling, numbness, headaches and paresthesias. Hematological: Negative for adenopathy. Does not bruise/bleed easily. OBJECTIVE Initial Vitals [09/12/20 1728] Temperature Pulse Rate Heart Rate Resp Rate Blood Pressure SpO2 36.8 ??C 88 -- 16 (!) 152/100 98 % Pain Score -- PHYSICAL EXAMINATION Constitutional: Nursing note and vitals reviewed. HENT: Head: Normocephalic and atraumatic. Mouth/Throat: Oropharynx is clear and moist. Mucous membranes are moist. Eyes: Conjunctivae are normal. Pupils are equal, round, and reactive to light. Neck: Neck supple. Cardiovascular: Regular rhythm, S1 normal, S2 normal and normal heart sounds. Capillary refill: takes less than 3 seconds, Pulmonary/Chest: Effort normal and breath sounds normal. There is normal air entry. Abdominal: Soft. Bowel sounds are normal. Musculoskeletal: Cervical back: Normal range of motion and neck supple. Lumbar back: Spasms and tenderness present. No bony tenderness. Decreased range of motion. Negativeright straight leg raise test and negative left straight leg raise test. No scoliosis. Neurological: Alert and oriented to person, place, and time. Skin: Skin is warm, dry, intact and normal color. ASSESSMENT/PLAN DIFFERENTIAL DIAGNOSIS Differential diagnosis: Life threatening differential diagnoses considered include: Cauda Equina andepidural abscess. Other differential diagnoses considered include: sprain, contusion, nerve root entrapment, radiculopathy, muscle spasm, urolithiasis, lumbar fracture, pyelonephritis, as well as other etiologies. The patient denied saddle anesthesia, bowel or bladder incontinence or lower extremity weakness. Gastrointestinal, constipation, incarcerated hernia, infectious colitis, inflammatory bowel disease,ischemic bowel, omental infarction, sigmoid diverticulitis, genitourinary: urinary tract infection, Gynecologic, Abdominal wall abscess, Abdominal wall hematoma, Psoas abscess, Retroperitoneal hemorrhage I reviewed previous medical records including documentation from previous visits, lab results and radiology images/report. I personally reviewed the lab result(s) and my interpretation is abnormal. Care Handoff Row Name 09/12/201902 Care Handoff Type of Handoff Shift change handoff Provider's Name Best Leigh III, M.D. 09/12/201903 documented in this encounter Plan of Treatment Scheduled Referrals Name Type Priority Associated Diagnoses Order S chedule POST ED VISIT Outpatient Referral Routine Pain Back Expected: Family Medicine Diarrhea 09/13/2020, Expires: 09/13/2023 documented as of this encounter Procedures Procedure Name Priority Date/Time Associated Comments Diagnosis CT ABDOMEN PELVIS RAD - Semiurgent 09/12/2020 7:10 Res ults for this WITH IV CONTRAST (Fast; most ED PM CDT procedure are in patients; some the results inpatients) section. DX LUMBAR SPINE 2-3 RAD - Semiurgent 09/12/2020 7:08 R esults for this VIEWS (Fast; most ED PM CDT procedure are in patients; some the results inpatients) section. URINALYSIS WITH STAT 09/12/2020 6:14 Results f or this MICROSCOPIC PM CDT procedure are i n the results section. CBC WITH STAT 09/12/2020 5:50 Results for this DIFFERENTIAL, B PM CDT procedure ar e in the results section. C-REACTIVE PROTEIN STAT 09/12/2020 5:49 Result s for this (CRP), S/P PM CDT procedure are i n the results section. BASIC METABOLIC STAT 09/12/2020 5:49 Results f or this PANEL, S/P PM CDT procedure are i n the results section. documented in this encounter Results CT Abdomen Pelvis with IV Contrast (09/12/2020 7:10 PM CDT) Anatomical Region Laterality Modality Abdomen, Pelvis, Abdominal RST LOS, Abdominal ARZ LOS, N/A Computed Tomography Abdominal FLA LOS Specimen (Source) Anatomical Collection Method Collection Time Re ceived Time Location / / Volume Laterality 09/13/2020 6:14 AM CDT Impressions 09/13/2020 6:20 AM CDT Mild dilatation of the left renal pelvis and left ureter compared to the previous study and this is likely secondary to passage of a urinary stone recently. The remainder the scan is othe rwise unchanged from the prior study. Narrative 09/13/2020 6:20 AM CDT EXAM: ??CT ABDOMEN PELVIS WITH IV CONTRAST COMPARISON: ??02/24/2015 FINDINGS: ??Fatty infiltration liver. Th e left renal pelvis and the calyceal within the left kidney are more dilated from the prior study as is much of the left ureter. There is no evidence of obs tructing stone on this study and this may be secondary to recent passage of a left renal stone. Colonic diverticulosis. Simple cysts both kidney s. Fatty infiltration liver. Areas of linear fibrosis in both lung bases. The remainder of the scan is otherwise unchanged from the prior study. Procedure Note Romario Choi M.D. - 09/13/2020Forma tting of this note might be different from the original. EXAM: CT ABDOMEN PELVIS WITH IV CONTRAST COMPARISON: 02/24/2015 FINDINGS: Fatty infiltration liver. The left renal pelvis and the calyceal within the left kidney are more dilated from the prior study as is much of the left ureter. There is no evidence of obs tructing stone on this study and this may be secondary to recent passage of a left renal stone. Colonic diverticulosis. Simple cysts both kidney s. Fatty infiltration liver. Areas of linear fibrosis in both lung bases. The remainder of the scan is otherwise unchanged from the prior study. IMPRESSION: Mild dilatation of the left renal pelvis and left ureter compared to the previous study and this is likely secondary to passage of a urinary stone recently. The remainder the scan is othe rwise unchanged from the prior study. Best Patricia III, M.D. [facility] [place]ED[place] DX Lumbar Spine 2-3 Views (09/12/2020 7:08 PM CDT) Anatomical Region Laterality Modality Lumbar Spine, Musculoskeletal RST LOS, Neuroradiology N/A Digital Radiography ARZ LOS, Muskuloskeletal FLA LOS Specimen (Source) Anatomical Collection Method Collection Time Re ceived Time Location / / Volume Laterality 09/13/2020 2:46 AM CDT Impressions 09/13/2020 2:47 AM CDT Grade 1 anterolisthesis of L4 on L5. Moderate multilevel lumbar facet arthropathy. Scattered vascular ca lcifications. Normal vertebral body height. No acute fracture. No radioopaqu e foreign body. No aggressive bone lesion. Narrative 09/13/2020 2:47 AM CDT EXAM: DX LUMBAR SPINE 2-3 VIEWS Procedure Note Jayant Maldonado M.D. - 09/13/2020Format ting of this note might be different from the original. EXAM: DX LUMBAR SPINE 2-3 VIEWS IMPRESSION: Grade 1 anterolisthesis of L4 on L5. Mod erate multilevel lumbar facet arthropathy. Scattered vascular ca lcifications. Normal vertebral body height. No acute fracture. No radioopaqu e foreign body. No aggressive bone lesion. Best Patricia III, M.D. IMG DIAGNOSTIC IMAGING PROCEDURES (ABNORMAL) Urinalysis with Microscopic: Urine, Midstream (09/12/2020 6:14 PM CDT) Analysis Performed At Patho logist Time Signature Source Midstream 09/12/2020 [facility] 6:22 PM CDT Clarity Slightly Clear 09/12/2020 [facility] Cloudy (A) 6:22 PM CDT Color Yellow 09/12/2020 [facility] 6:22 PM CDT Comment: ----REFERENCE VALUE---- Colorless Yellow Angie Blood Small (A) Negative 09/12/2020 6:22 PM CDT [facility] Nitrite Negative Negative 09/12/2020 6:22 PM CDT [facility] Leukocyte Esterase Negative Negative 09/12/2020 6:22 PM CD T [facility] Protein Negative mg/dL 09/12/2020 6:22 PM CDT [facility] Comment: ----REFERENCE VALUE---- Negative Trace Glucose Negative Negative mg/dL 09/12/2020 6:22 PM CDT CN [facility] Ketones, QI(U) Negative Negative mg/dL 09/12/2020 6:22 PM C DT [facility] Bilirubin Negative Negative 09/12/2020 6:22 PM CDT [facility] pH 7.5 5.0 - 8.0 09/12/2020 6:22 PM CDT [facility] Specific [place] 1.025 1.001 - 1.035 09/12/2020 6:22 PM CDT [facility] Urobilinogen 1.0 0.2 - 1.0 mg/dL 09/12/2020 6:22 PM CD T [facility] White Blood Cells Occ-3 /hpf 09/12/2020 6:57 PM CDT [facility] Comment: ----REFERENCE VALUE---- Males: 0-3 Females: 0-10 Unknown: 0-10 Red Blood Cells Occ-2 0 - 2 /hpf 09/12/2020 6:57 PM CDT [facility] Dysmorphic Red Blood <=25 <=25 % 09/12/2020 6:57 PM CDT [facility] Cells Crystals Amorphous (A) None Seen /lpf 09/12/2020 6:57 PM CD T [facility] Squamous Cells Occ-3 /hpf 09/12/2020 6:57 PM CDT CN [facility] Specimen Anatomical Collection Method Collection Time Receive d Time (Source) Location / / Volume Laterality Urine (Urine, 09/12/2020 6:14 PM 09/13/19 6:14 Midstream) CDT PM CDT Best Patricia III, M.D. LAB URINE ORDERABLES Performing Organization Address City/State/ZIP Code Phon e Number [address] [id number] [facility] [place] [address] System [address] (ABNORMAL) CBC with Differential, Blood (09/12/2020 5:50 PM CDT) [facility] Method Time Signature Hemoglobin 15.1 (H) 11.6 - 09/12/2020 [facility] 15.0 g/dL 5:53 PM CDT Hematocrit 46.5 (H) 35.5 - 09/12/2020 [facility] 44.9 % 5:53 PM CDT Erythrocytes 5.56 (H) 3.92 - 09/12/2020 [facility] 5.13 5:53 PM CDT x10(12)/L MCV 83.6 78.2 - 09/12/2020 [facility] 97.9 fL 5:53 PM CDT RBC Distrib Width 14.6 12.2 - 09/12/2020 [facility] 16.1 % 5:53 PM CDT Platelet Count 286 157 - 371 09/12/2020 [facility] x10(9)/L 5:53 PM CDT Leukocytes 11.5 (H) 3.4 - 9.6 09/12/2020 [facility] x10(9)/L 5:53 PM CDT Neutrophils 8.90 (H) 1.56 - 09/12/2020 [facility] 6.45 5:53 PM CDT x10(9)/L Lymphocytes 1.86 0.95 - 09/12/2020 [facility] 3.07 5:53 PM CDT x10(9)/L Monocytes 0.58 0.26 - 09/12/2020 [facility] 0.81 5:53 PM CDT x10(9)/L Eosinophils 0.12 0.03 - 09/12/2020 [facility] 0.48 5:53 PM CDT x10(9)/L Basophils 0.02 0.01 - 09/12/2020 [facility] 0.08 5:53 PM CDT x10(9)/L Specimen Anatomical Collection Method Collection Time Receive d Time (Source) Location / / Volume Laterality Blood (Blood, 09/12/2020 5:50 PM 09/13/19 5:50 Venous) CDT PM CDT Best Patricia III, M.D. LAB BLOOD ADD-ON Performing Organization Address City/State/[facility] Code Phon e Number [address] [id number] [facility] [place] [address] [address] (ABNORMAL) CRP (C-Reactive Protein) (09/12/2020 5:49 PM CDT) P athologist Signature C-Reactive 10.3 (H) <=8.0 mg/L 09/12/2020 [facility] Protein (CRP), 6:08 PM CDT P Specimen Anatomical Collection Method Collection Time Receive d Time (Source) Location / / Volume Laterality Blood (Blood, 09/12/2020 5:49 PM 09/13/19 5:49 Venous) CDT PM CDT Best W Harshad III, M.D. LAB BLOOD ADD-ON Performing Organization Address City/State/ZIP Code Phon e Number [facility]- [address] [place] [address] [place] [address] [place] [place] [address] System in [place] [address] Bl (ABNORMAL) Basic Metabolic Panel (09/12/2020 5:49 PM CDT) P athologist Signature Potassium, P 4.1 3.6 - 5.2 09/12/2020 [facility] mmol/L 6:08 PM CDT Sodium, P 136 135 - 145 09/12/2020 [facility] mmol/L 6:08 PM CDT Chloride, P 98 98 - 107 09/12/2020 [facility] mmol/L 6:08 PM CDT Bicarbonate, P 28 22 - 29 09/12/2020 [facility] mmol/L 6:08 PM CDT Anion Gap, P 10 7 - 15 09/12/2020 [facility] 6:08 PM CDT BUN (Blood Urea 17 6 - 21 09/12/2020 [facility] Nitrogen), P mg/dL 6:08 PM CDT Creatinine 0.95 0.59 - 09/12/2020 [facility] 1.04 mg/dL 6:08 PM CDT eGFR-Black/Afric 68 >=60 09/12/2020 [facility] an [place] mL/min/BSA 6:08 PM CDT Comment: ----ADDITIONAL INFORMATION---- Estimated GFR calculated using the 2009 CKD_EPI creatinine equation. eGFR Non-Black/ 59 (L) >=60 mL/min/BSA 09/12/2020 6:08 PM CDT [facility] [place] Comment: ----ADDITIONAL INFORMATION---- Estimated GFR calculated using the 2009 CKD_EPI creatinine equation. Calcium, Total, P 9.6 8.8 - 10.2 mg/dL 09/12/2020 6:08 PM CDT [facility] Glucose, P 151 (H) 70 - 140 mg/dL 09/12/2020 6:08 PM CDT C NFL Specimen Anatomical Collection Method Collection Time Receive d Time (Source) Location / / Volume Laterality Blood (Blood, 09/12/2020 5:49 PM 09/13/19 5:49 Venous) CDT PM CDT Best Patricia III, M.D. LAB BLOOD ADD-ON Performing Organization Address City/State/ZIP Code Phon e Number [facility]- [address] [place] [id number] [place] [address] [address] documented in this encounter Visit Diagnoses Diagnosis Pain Back - Primary Diarrhea documented in this encounter Administered Medications Inactive Administered Medications - up to 3 most recent administrations Medication Order MAR Action Action Date Dose Rate Site iohexoL (OMNIPAQUE) 300 mg iodine/mL kimberly ution - ADS Override Pull Starting on Sat09/12/20 at 1837, For 1 dose, Created b y cabinet override iohexoL 300 mg iodine/mL solution 194 mL Given 09/12/2020 6:57 P M CDT 194 mL (OMNIPAQUE) 194 mL, intravenous, Once in imaging, contrast, Starting on Sat09/12/20 at 1835, For 1 dose, If administered oral then dilute in 900 mL water NaCl 0.9 % bolus 98 mL New Bag 09/12/2020 6:57 PM CDT 98 mL 98 mL/hr 98 mL, intravenous, at 98 mL/hr, Administer over 1 Hours, Once, On Sat09/12/20 at 1837, For 1 dose sodium chloride 0.9 % injection 10 mL Given 09/12/2020 6:58 PM CDT 10 mL 10 mL, intravenous, Once, On Sat09/12/20 at 1837, For 1 dose documented in this encounter Active and Recently Administered Medications Times are shown in CDT. Scheduled Medication Order 09/10/2020 09/11/2020 09/12/2020 NaCl 0.9 % bolus 98 mL (COMPLETED) 1856 (New Bag - Provider: Shelby Andres(aTmi)(CT), R.T.(R))1956 (Due: Stopped - Provider: Shelby Andres(Tami)(CT), R.T.(R)) 98 mL, intravenous, at 98 mL/hr, Adminis ter over 1 Hours, Once, On Sat09/12/20 at 1837, For 1 dose sodium chloride 0.9 % injection 10 mL (COMPLETED) 1858 (Given - Provider: Shelby Andres(Tami)(CT), R.TSariah(R)) 10 mL, intravenous, Once, On Sat09/12/20 at 1837, For 1 dose PRN Medication Order 09/10/2020 09/11/2020 09/12/2020 iohexoL 300 mg iodine/mL solution 194 mL (OMNIPAQUE) (COMPLETED) 1857 (Given - Provider: Shelby Andres(Tami)(CT), RSariahTSariah(R) - Comment: [phone]) 194 mL, intravenous, Once in imaging, co ntrast, Starting on Sat09/12/20 at 1835, For 1 dose, If administered oral then dilute in 900 mL water documented in this encounter Additional Health Concerns Assessment Noted Time PHQ-9 Depression Total Score: 3 05/13/2013 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 PCP - General Family Medicine 09/19/[address] [place] [phone] documented as of this encounter
--- OUTSIDE RECORDS SUMMARY | 2021-12-22 21:53 | XMS_ITS | Encounter Summary ---
:1945 Author Organization [facility] Address [address] [place] [address] Care Team Providers Name Role Phone Suhail Lemus M.D. Primary Care Provider Reason for Visit Reason Comments Post Ed Visit Follow-up 09/12/2020 (2 hours) chronic low back pain and explosive diarrhea that woke her from sleep. Dermatology Patient would like a alma price Colon Cancer Screening Not interested. Appointment Request (Routine) - Closed Specialty Diagnoses / Procedures Referred By Contact Refer red To Contact Family Medicine Referral ID Status Reason Start Date Expiration Date Visits Requ ested Visits Authorized [id number] Closed 08/31/2020 08/31/2021 1 1 Encounter Details Date Type Department Care Team Description 09/14/2020 Office Visit Department of Family Lise Wang Pai n Back (Primary Dx); Medicine, [place] [facility]; Clinic, in [facility]; [place], [place] Keratosis Actinic; [address] [place] [address] BLVD Screening Cancer Colon; [place], [place] Morbid Obes ity Body Mass Index 50.0-59.9 Adult ([facility]) [address] Social History Tobacco Use Types Packs/Day Years Used Date Smoking Tobacco: Former Smokeless Tobacco: Never Alcohol Use Standard Drinks/Week Comments No 0 (1 standard drink = 0.6 oz pure alcoho l) Sex Assigned at Date Recorded Not on file documented as of this encounter Last Filed Vital Signs Vital Sign Reading Time Taken Comments Blood Pressure 136/70 09/14/2020 10:45 AM CDT Pulse 79 09/14/2020 10:26 AM CDT Temperature 37 ??C (98.6 ??F) 09/14/2020 10:26 AM CDT Respiratory Rate 16 09/14/2020 10:26 AM CDT Oxygen Saturation 97% 09/14/2020 10:26 AM CDT Inhaled Oxygen Concentration - - Weight 133 kg (293 lb 3.4 oz) 09/14/2020 10:26 AM CDT Height 158 cm (5' 2.21) 09/14/2020 10:26 AM CDT Body Mass Index 53.28 09/14/2020 10:26 AM CDT documented in this encounter Patient Instructions Patient InstructionsLise Wang P.A.-C., P.A. - 09/14/2020 10:30 AM CDT Aleve 2 tabs twice daily Tylenol 1000mg three times daily if needed Ice/heat Consider PT documented in this encounter Progress Notes Lise Wang P.A.-C., P.A. - 09/14/2020 10:30 AM CDT SUBJECTIVE CHIEF COMPLAINT/REASON FOR VISIT Kristen Pederson is a 74 y.o. female who presents for evaluation of Post Ed Visit Follow-up (09/12/2020 (2 hours) chronic low back pain and explosive diarrhea that woke her from sleep. ), Dermatology (Patient would like a referral.), and Colon Cancer Screening (Not interested. ). HISTORY OF PRESENT ILLNESS Kristen is a pleasant 74-year-old female who presents today for post ER visit. She was seen on September 12 for evaluation of low back pain and explosive diarrhea. Her labs were mildly abnormal with a slightelevated white count and mildly elevated CRP. Her abdominal CT did appear that she had recently passed a kidney stone on the left. Her back pain resolved while in the ER without intervention. She does continue to have some mild low back pain with radiculopathy into her left buttock. Denies any red flags. He states her back pain is currently at baseline and is well managed with ice and Aleve. Her diarrhea also subsided after that 1 episode and she is now back to having regular bowel movements. She did submit her C diff test today. 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 Of note, she is suffering from an E coli infection. Lastly, the patient is requesting a dermatology referral for her rosacea and actinic keratoses. She has previously had these treated with cryotherapy, but states that she would like to try laser therapy as this may reduce her scarring. PHYSICAL EXAMINATION Vital Signs: BP 136/70 Pulse 79 Temp 37 ??C (Temporal) Resp 16 Ht 158 cm Wt 133 kg SpO2 97% BMI 53.28 kg/m?? Body mass index is 53.28 kg/m??. General: This patient is alert and in no acute distress. HEENT: Pupils are PERRLA, conjunctivae clear without hemorrhages or exudates. Respiratory: Effort is easy, lung sounds are clear to auscultation. Cardiovascular: S1 and S2 are present, normal rate and rhythm. Abdomen: Soft, nontender, bowel sounds present. Musculoskeletal: Grossly intact, no deformities are noted. Gait is normal. 5/5 strength of lower extremities bilaterally without worsening of pain. Negative straight leg raise. Psych: Behavior, mood, affect, cognition and insight are all appropriate. ASSESSMENT / PLAN 1. Pain Back Back pain is significantly improved since the ER. She can continue with NSAIDs twice daily with food, heat, ice and gentle stretching. Did offer physical therapy referral which she declined at this time but will consider if her pain is not improving. - POST ED VISIT Family Medicine 2. Diarrhea Symptoms resolved. - POST ED VISIT Family Medicine 3. Rosacea 4. Keratosis Actinic Dermatology referral per patient request for history of rosacea and actinic keratosis. She did not want cryotherapy on these in the office today but wanted to talk about possible laser therapy. - Dermatology - Skin check consult (clinic); Future 5. Screening Cancer Colon - Cologuard-Sent Out Lab 6. Morbid Obesity Body Mass Index 50.0-59.9 Adult (HCC) Weight is stable. Discussed healthy lifestyle changes including decreasing portion size, increasing activity and incorporating more fruits and vegetables into her diet. Patient was instructed to follow up in [...] plan. Patient/Child/Caregiver expressed understanding of the content. Total time: 25 minutes Lise Wang P.A.-C., PDavid documented in this encounter Plan of Treatment Not on filedocumented as of this encounter Procedures Procedure Name Priority Date/Time Associated Diagnosis Comme nts COLOGUARD Routine 09/20/2020 7:30 PM Screening Cancer Resul ts for this CDT Colon procedure are i n the results section . documented in this encounter Results Cologuard-Sent Out Lab (09/20/2020 7:30 PM CDT) athologist Signature Result Negative Negative 09/28/2020 EXLI 4:46 PM CDT Comment: NEGATIVE TEST RESULT. A negative Cologua rd result indicates a low likelihood that a colorectal cance r (CRC) or advanced adenoma (adenomatous polyps with more ad vanced pre-malignant features) ??is present. Th e chance that a person with a negative Cologuard test branch s a colorectal cancer is less than 1 in 1500 (negative predictive value >99.9%) or has an ??advanced adenoma is less than ??5.3% (negative predictive value 94.7%). These data are based on a prospective cross-sectional study of 1 0,000 individuals at average risk for colorectal cancer wh o were screened with both Cologuard and colonoscopy. (Caryn Hyde. et al, N Engl J Med 2014;370(14):3463-1335) The n ormal value (reference range) for this assay is nega tive. COLOGUARD RE-SCREENING RECOMMENDATION: P eriodic colorectal cancer screening is an important part of preventive healthcare for asymptomatic individuals at average risk for colorectal cancer. ??Following a negativ e Cologuard result, the [employer] Cancer Society and U.S. Mul ti-Society Task Force screening guidelines recommend a C ologuard re-screening interval of 3 years. References: [employer] Society Sanjuanita milagros for Colorectal Cancer Screening: https://www.cancer.org/cancer/colon-rect al-cancer/detection- diagnosis-staging/acs-recommendations.ht ml.; Bashir JULIEN, Marie MOYA, Karen TRENT, Colorectal Cancer Scree radha: Recommendations for Physicians and Patie nts from the U.S. Multi-Society Task Force on Colorectal C ancer Screening , Am J Gastroenterology 2017; 112:1016-103 0. TEST DESCRIPTION: Composite algorithmic analysis of stool DNA-biomarkers with hemoglobin immunoass ay. ?? Quantitative values of individual biomarkers are not reportable and are not associated with individual biomarker result reference ranges. Cologuard is intended for colore ctal cancer screening of adults of either sex, 45 ye ars or older, who are at average-risk for colorectal cance r (CRC). Cologuard has been approved for use by the U.S. FD A. The performance of Cologuard was established in a cross sectional study of average-risk adults aged 50-84. Cologuar d performance in patients ages 45 to 49 years was estimat ed by sub-group analysis of near-age groups. Colonoscopi es performed for a positive result may find as the most cli nically significant lesion: colorectal cancer [4.0%], advanc ed adenoma (including sessile serrated polyps great er than or equal to 1cm diameter) [20%] or non- advanced jing noma [31%]; or no colorectal neoplasia [45%]. These estima marlee are derived from a prospective cross-sectional aguilar seniorg study of 10,000 individuals at average risk for c olorectal cancer who were screened with both Cologuard an d colonoscopy. (Courtney Vick al, N Engl J Med 2014;3 70(14):0949-8796.) Cologuard may produce a false negative o r false positive result (no colorectal cancer or precance tova polyp present at colonoscopy follow up). A negative Co loguard test result does not guarantee the absence of CRC or advanced adenoma (pre-cancer). The current Cologuard scre ening interval is every 3 years. ([employer] Cancer Society and U.S. Multi-Society Task Force). Cologuard per formance data in a 10,000 patient pivotal study using colon oscopy as the reference method can be accessed at the following location: www.exactSerena & Lily.SpokenLayer/results. Additional de scription of the Cologuard test process, warnings and pre cautions can be found at www.cologuard.com. Specimen Anatomical Collection Method Collection Time Receive d Time (Source) Location / / Volume Laterality Stool (Stool) 09/20/2020 7:30 PM 09/24/19 21 2:57 CDT PM CDT Lise Wang P.A.-C., P.A. LAB BODY FLUIDS AND STOOL S ORDERABLES Performing Organization Address City/State/ZIP Code Phon e Number [employer] [address] [place] [address] [phone] EX[place] [employer] [place] [address] [place] [address], [address] documented in this encounter Visit Diagnoses Diagnosis Pain Back - Primary Diarrhea Rosacea Keratosis Actinic Screening Cancer Colon Morbid Obesity Body Mass Index 50.0-59.9 Adult (HCC) documented in this encounter Additional Health Concerns Assessment Noted Time PHQ-9 Depression Total Score: 3 05/13/2013 2:06 PM RECORD FILING CLERK documented as of this encounter Care Teams Activity Specialist Relationship Specialty Start Date End Date Suhail Lemus M.D. PCP - General Family Medicine 09/19/[address] [place] [phone] documented as of this encounter
--- OUTSIDE RECORDS SUMMARY | 2021-12-22 21:53 | XMS_ITS | Encounter Summary ---
:1945 Author Organization [facility] Address [address] [place] [address] Care Team Providers Name Role Phone Suhail Lemus M.D. Primary Care Provider Reason for Visit Reason Comments Xray Results Encounter Details Date Type Department Care Team Description 07/06/2021 Clinical Communication Department of Damir Hwang, Xray Results Medicine, Roni Colvin [address] [address] [place], [place] [phone] (Work) [phone] Social History Tobacco Use Types Packs/Day Years Used Date Smoking Tobacco: Former Smokeless Tobacco: Never Alcohol Use Standard Drinks/Week Comments No 0 (1 standard drink = 0.6 oz pure alcoho l) Sex Assigned at Date Recorded Not on file documented as of this encounter Miscellaneous Notes Telephone Encounter - Michelle Kee - 07/06/2021 11:15 AM CDT TEST RESULT QUESTION: Type of test: Chest Xray Date of test: 07/05/21 Comments: Patient would like a phone call to go over results MARIBEL. Please call when they are in. Thank you! documented in this encounter Plan of Treatment Not on filedocumented as of this encounter Visit Diagnoses Not on filedocumented in this encounter Additional Health Concerns Assessment Noted Time PHQ-9 Depression Total Score: 3 05/13/2013 2:06 PM CORPORATION SECRETARY documented as of this encounter Care Teams Review Nurse Relationship Specialty Start Date End Date Suhail Lemus M.D. PCP - General Family Medicine 09/19/[address] [place] [phone] documented as of this encounter
--- OUTSIDE RECORDS SUMMARY | 2021-12-22 21:53 | XMS_ITS | Encounter Summary ---
:1945 Author Organization [facility] Address [address] [place] [address] Care Team Providers Name Role Phone Suhail Lemus M.D. Primary Care Provider Reason for Visit Reason Comments COVID Nurse Line Encounter Details Date Type Department Care Team Description 01/26/2021 Clinical Communication Division of Phoebe Reyes C OVID Nurse Line [facility] [phone] [place], in (Work) [place], [place] [address] [place] [address] Social History Tobacco Use Types Packs/Day Years Used Date Smoking Tobacco: Former Smokeless Tobacco: Never Alcohol Use Standard Drinks/Week Comments No 0 (1 standard drink = 0.6 oz pure alcoho l) Sex Assigned at Date Recorded Not on file documented as of this encounter Miscellaneous Notes Telephone Encounter - Phoebe Reyes R.N. - 01/26/2021 4:01 PM CST Patient inquiring about information on flying. If traveling please refer to the CDC for additional recommendations or information: https://www.cdc.gov/coronavirus/2019-ncov/travelers/ncqzso-fnzlzw-nluby73.html RDER OF DEEDS documented in this encounter Plan of Treatment Not on filedocumented as of this encounter Visit Diagnoses Not on filedocumented in this encounter Additional Health Concerns Assessment Noted Time PHQ-9 Depression Total Score: 3 05/13/2013 2:06 PM RECORDER OF DEEDS documented as of this encounter Care Teams Mobile Equipment Mechanic Relationship Specialty Start Date End Date Suhail Lemus M.D. PCP - General Family Medicine 09/19/[address] [place] [phone] documented as of this encounter
--- OUTSIDE RECORDS SUMMARY | 2021-12-22 21:53 | XMS_ITS | Encounter Summary ---
:1945 Author Organization [facility] Address [address] [place] [address] Care Team Providers Name Role Phone Suhail Lemus M.D. Primary Care Provider Encounter Details Date Type Department Care Team Description 02/22/2020 Orders Only [facility] Suhail Lemus Deficiency Estrogen M.DSariah Post Menopausal [address] [place] [phone] Social History Tobacco Use Types Packs/Day Years Used Date Smoking Tobacco: Never Smokeless Tobacco: Never Alcohol Use Standard Drinks/Week Comments No 0 (1 standard drink = 0.6 oz pure alcoho l) Sex Assigned at Date Recorded Not on file documented as of this encounter Plan of Treatment Not on filedocumented as of this encounter Visit Diagnoses Diagnosis Deficiency Estrogen Post Menopausal documented in this encounter Additional Health Concerns Assessment Noted Time PHQ-9 Depression Total Score: 3 05/13/2013 2:06 PM VULCANIZER RUBBER PLATE documented as of this encounter Care Teams Therapy Director Relationship Specialty Start Date End Date Suhail Lemus M.D. PCP - General Family Medicine 09/19/[address] [phone] documented as of this encounter
--- OUTSIDE RECORDS SUMMARY | 2021-12-22 21:53 | XMS_ITS | Encounter Summary ---
:1945 Author Organization [facility] Address [address] [place] [address] Care Team Providers Name Role Phone Suhail Lemus M.D. Primary Care Provider Encounter Details Date Type Department Care Team Description 03/24/2020 Clinical Communication Department of Ernestina, Ophthalmology in [place] Reich M.D. [address] [place] [phone] Social History Tobacco Use Types Packs/Day Years Used Date Smoking Tobacco: Never Smokeless Tobacco: Never Alcohol Use Standard Drinks/Week Comments No 0 (1 standard drink = 0.6 oz pure alcoho l) Sex Assigned at Date Recorded Not on file documented as of this encounter Miscellaneous Notes Telephone Encounter - Jose Alberto Hernandes V. - 03/25/2020 8:40 AM CST 04/11 9:15 avail ON AND CAN SUPPLY SUPERVISOR Telephone Encounter - Megha Manning - 03/25/2020 8:17 AM CST Patient needs to reschedule today due to cold symptoms. Due to these symptoms, appointment should berescheduled at least 2 weeks out. Is there somewhere you would like to add patient? ON AND CAN SUPPLY SUPERVISOR Telephone Encounter - Oumou Escalante - 03/24/2020 1:24 PM CST Patient called she has a cold and want to reschedule her appointments tomorrow please call her to reschedule. ON AND CAN SUPPLY SUPERVISOR documented in this encounter Plan of Treatment Not on filedocumented as of this encounter Visit Diagnoses Not on filedocumented in this encounter Additional Health Concerns Assessment Noted Time PHQ-9 Depression Total Score: 3 05/13/2013 2:06 PM CARTON AND CAN SUPPLY SUPERVISOR documented as of this encounter Care Teams Freezer Machine Operator Relationship Specialty Start Date End Date Suhail Lemus M.D. PCP - General Family Medicine 09/19/[address] [place] [phone] documented as of this encounter
--- OUTSIDE RECORDS SUMMARY | 2021-12-22 21:53 | XMS_ITS | Encounter Summary ---
:1945 Author Organization [facility] Address [address] [place] [address] Care Team Providers Name Role Phone Suhail Lemus M.D. Primary Care Provider Reason for Visit Reason Comments Insect Bite Neck Pain Encounter Details Date Type Department Care Team Description 08/16/2021 Nurse Triage Department of Family Gladys Palencia, In sect Bite; Neck Pain Medicine, [facility], in [place], [address] [place] [address] [place] [phone] [place] [address] [phone] Social History Tobacco Use Types Packs/Day Years Used Date Smoking Tobacco: Former Smokeless Tobacco: Never Alcohol Use Standard Drinks/Week Comments No 0 (1 standard drink = 0.6 oz pure alcoho l) Sex Assigned at Date Recorded Not on file documented as of this encounter Miscellaneous Notes Telephone Encounter - Gladys Palencia, R.N. - 08/16/2021 3:39 PM CDT Patient received a bug bite on her L breast 4 days ago. Caller is not sure what bit her. She has 2 areas where it latched on and the redness around the bite is about a silver dollar size. Three days ago, her neck started getting very stiff and she can barely turn her neck due to the severe pain. Friend will drive her into the ER now . Reason for Disposition ??? [1] Red or very tender (to touch) area AND [2] getting larger over 48 hours after the bite ??? [1] SEVERE neck pain (e.g., excruciating, unable to do any normal activities) AND [2] not improved after 2 hours of pain medicine Protocols used: INSECT [id number], NECK PAIN OR [id number] CALL BACK IF: * Fever occurs * You become worse. documented in this encounter Plan of Treatment Not on filedocumented as of this encounter Visit Diagnoses Not on filedocumented in this encounter Additional Health Concerns Assessment Noted Time PHQ-9 Depression Total Score: 3 05/13/2013 2:06 PM CARTON STAPLER documented as of this encounter Care Teams Director Of Infection Prevention Relationship Specialty Start Date End Date Suhail Lemus M.D. PCP - General Family Medicine 09/19/[address] [place] [phone] documented as of this encounter
--- OUTSIDE RECORDS SUMMARY | 2021-12-22 21:53 | XMS_ITS | Encounter Summary ---
:1945 Author Organization [facility] Address [address] [place] [address] Care Team Providers Name Role Phone Suhail Lemus M.D. Primary Care Provider Reason for Referral Outpatient (Routine) - Closed Specialty Diagnoses / Procedures Referred By Contact Refer red To Contact Diagnoses Dyspnea On Exertion Suhail Lemus M.D. [facility] [place] [facility] Procedures DX Chest AP or PA and Lateral [address] [place] [phone] Referral ID Status Reason Start Date Expiration Date Visits Requ ested Visits Authorized [id number] Closed 07/05/2021 07/05/2022 1 1 Reason for Visit Outpatient (Routine) - Closed Specialty Diagnoses / Procedures Referred By Contact Refer red To Contact Diagnoses Dyspnea On Exertion Suhail Lemus M.D. [facility] [place] [facility] Procedures DX Chest AP or PA and Lateral [address] [place] [phone] Referral ID Status Reason Start Date Expiration Date Visits Requ ested Visits Authorized [id number] Closed 07/05/2021 07/05/2022 1 1 Encounter Details Date Type Department Care Team Description 07/05/2021 Hospital Encounter Department of Mariah, Dyspnea On Exertion Radiology in [place] Luz [address] [place] [phone] [place] [phone] Social History Tobacco Use Types Packs/Day Years [...] 03/03/20 21 15 % gel azelastine (ASTELIN) Administer 2 sprays 30 mL [...] or shortness of breath). amLODIPine (NORVASC) 10 TAKE 1 TABLET BY 90 tablet 3 202009/15/2021 mg tablet MOUTH ONCE DAILY. doxycycline hyclate Take 1 capsule (100 20 capsule 0 020 2021 (VIBRAMYCIN) 100 mg mg total) by mouth 2 capsule (two) times a day. losartan (COZAAR) 25 mg Take 1 tablet (25 mg 90 tablet 3 2021 tablet total) by mouth daily. documented as of this encounter Plan of Treatment Not on filedocumented as of this encounter Procedures Procedure Name Priority Date/Time Associated Comments Diagnosis DX CHEST AP OR PA RAD - Routine 07/05/2021 5:10 Dyspnea On Result s for this AND LATERAL 2 (most inpatients PM CDT Exertion procedure are in VIEWS and all the results outpatients) section. documented in this encounter Results DX Chest AP or PA and Lateral 2 Views (07/05/2021 5:10 PM CDT) Anatomical Region Laterality Modality Chest, Thoracic RST LOS, Thoracic ARZ LOS, Thoracic N/A Digital Radiography FLA LOS Specimen (Source) Anatomical Collection Method Collection Time Re ceived Time Location / / Volume Laterality 07/06/2021 7:30 AM CDT Impressions 07/06/2021 7:30 AM CDT Stable chest, no acute cardiopulmonary d isease. Narrative 07/06/2021 7:30 AM CDT EXAM: DX CHEST AP OR PA AND LATERAL 2 VIEWS COMPARISON: 07/12/2016. FINDINGS: Heart size and pulmonary vascu larity are within normal limits. Lungs are clear of infiltrates or effusions. There is no si gnificant interval change compared with 07/12/2016. Procedure Note Reuben Brady Jr., M.D. - 2021 EXAM: DX CHEST AP OR PA AND LATERAL 2 EWS COMPARISON: 07/12/2016. FINDINGS: Heart size and pulmonary vascu larity are within normal limits. Lungs are clear of infiltrates or effusions. There is no si gnificant interval change compared with 07/12/2016. IMPRESSION: Stable chest, no acute cardiopulmonary d isease. Suhail Lemus M.D. IMG DIAGNOSTIC IMAGING PROCE CHICHO documented in this encounter Visit Diagnoses Diagnosis Dyspnea On Exertion documented in this encounter Additional Health Concerns Assessment Noted Time PHQ-9 Depression Total Score: 3 05/13/2013 2:06 PM CRYSTAL GAZER documented as of this encounter Care Teams Client Services Representative Relationship Specialty Start Date End Date Suhail Lemus M.D. PCP - General Family Medicine 09/19/[phone] [place] [phone] documented as of this encounter
--- OUTSIDE RECORDS SUMMARY | 2021-12-22 21:53 | XMS_ITS | Encounter Summary ---
:1945 Author Organization [facility] Address [address] [place] [address] Care Team Providers Name Role Phone Suhail Lemsu M.D. Primary Care Provider Reason for Referral Specialty Diagnoses / Procedures Referred By Contact Refer red To Contact Suhail Lemus M. D. [address] [phone] Referral ID Status Reason Start Date Expiration Date Visits Requ ested Visits Authorized Encounter Details Date Type Department Care Team Description 08/02/2021 Orders Only [facility] M[facility] [address] [place] [phone] (Wo rk) Social History Tobacco Use Types Packs/Day Years Used Date Smoking Tobacco: Former Smokeless Tobacco: Never Alcohol Use Standard Drinks/Week Comments No 0 (1 standard drink = 0.6 oz pure alcoho l) Sex Assigned at Date Recorded Not on file documented as of this encounter Plan of Treatment Scheduled Referrals Name Type Priority Associated Order Schedule Diagnoses Covid immunization Outpatient Referral Routine Ex pected: office visit Booster 022 (Approximate), Expires: 08/02/2022 documented as of this encounter Visit Diagnoses Not on filedocumented in this encounter Additional Health Concerns Assessment Noted Time PHQ-9 Depression Total Score: 3 05/13/2013 2:06 PM AVIONICS ELECTRICAL ENGINEER documented as of this encounter Care Teams Products Mechanical Design Engineer Relationship Specialty Start Date End Date Suhail Lemus M.D. PCP - General Family Medicine 09/19/[address] [place] [phone] documented as of this encounter
--- OUTSIDE RECORDS SUMMARY | 2021-12-22 21:53 | XMS_ITS | Encounter Summary ---
:1945 Author Organization [facility] Address [address] [place] [address] Care Team Providers Name Role Phone Suhail Lemus M.D. Primary Care Provider Encounter Details Date Type Department Care Team Description 05/02/2020 Clinical Communication Department of Emilie Fong Ophthalmology in [place], [place] [phone] [address] [facility] (Work) [place] [phone] Social History Tobacco Use Types Packs/Day Years Used Date Smoking Tobacco: Never Smokeless Tobacco: Never Alcohol Use Standard Drinks/Week Comments No 0 (1 standard drink = 0.6 oz pure alcoho l) Sex Assigned at Date Recorded Not on file documented as of this encounter Miscellaneous Notes Telephone Encounter - Emilie Fong - 05/20/2020 12:51 PM CST Called and confirmed new appts. AL RECEPTIONIST Telephone Encounter - Best Montes - 05/20/2020 9:40 AM CST Good morning, Ms. Pederson called in stating she is ill after receiving the covid vaccine (1st dose) earlier thisweek. Please call her to reschedule. Thank you, Drew AL RECEPTIONIST documented in this encounter Plan of Treatment Not on filedocumented as of this encounter Visit Diagnoses Not on filedocumented in this encounter Additional Health Concerns Assessment Noted Time PHQ-9 Depression Total Score: 3 05/13/2013 2:06 PM DENTAL RECEPTIONIST documented as of this encounter Care Teams Pleat Patternmaker Relationship Specialty Start Date End Date Suhail Lemus M.D. PCP - General Family Medicine 09/19/[address] [place] [phone] documented as of this encounter
--- OUTSIDE RECORDS SUMMARY | 2021-12-22 21:53 | XMS_ITS | Encounter Summary ---
:1945 Author Organization [facility] Address [address] [place] [address] Care Team Providers Name Role Phone Suhail Lemus M.D. Primary Care Provider Reason for Visit Reason Comments Results Previous labs Encounter Details Date Type Department Care Team Description 07/10/2021 Clinical Communication Department of Rita Lemus [facility] (Previous Family MedicineSuhail M.D. labs ) [address], [address] [phone] [facility] [phone] [place], [place] (Work) [phone] Social History Tobacco Use Types Packs/Day Years Used Date Smoking Tobacco: Former Smokeless Tobacco: Never Alcohol Use Standard Drinks/Week Comments No 0 (1 standard drink = 0.6 oz pure alcoho l) Sex Assigned at Date Recorded Not on file documented as of this encounter Miscellaneous Notes Telephone Encounter - Melonie Summers, C.M.ASariah - 07/11/2021 3:25 PM CDT SUBJECTIVE CHIEF COMPLAINT / REASON FOR CALL Results (Previous labs ) Information Discussed The labs does not show an infection there are no labs to show viral infection at this time. Relayed message to try OTC medication Flonase and allergy medications tylenol/ibuprofen. Patient became up set has been dealing with this sinus, runny nose, mucus for years. Blows nose thick white stuff comes out asked is that going to kill her. Informed that I have never known any one to from a runny nose. Asked if she wanted to schedule an appointment with Dr. Lemus to discuss possible options. Patient why can't we see her infection again informed that nothing indicates a bacterial infection her symptoms are viral upper respiratory has been dealing with this for years. Patient hung up before scheduling could help. PLAN Disposition/Recommendation: self-care was appropriate at this time, patient encouraged to call back with questions Information/Education: patient/caller able to teach back Caller agreeable to plan of care: yes The following references were used: nursing clinical judgement Telephone Encounter - Kalie Nance APRN, C.N.P., D.N.P. - 07/11/2021 3:00 PM CDT Viral upper respiratory infections are treated symptomatically, meaning she can use medications suchas Flonase, OTC allergy meds (zyrtec, yessi, or claritin), and tylenol/ibuprofen. There was nothing indicating a bacterial infection on the testing that was done from what I can see. I recommend she set up a follow up appointment with Dr. Lemus to discuss next steps. Telephone Encounter - Michelle Londono R.N. - 07/11/2021 2:41 PM CDT ASSESSMENT Pt called requesting treatment for viral infection as indicated in 07/05/21 result note. Pt states she's had ongoing sinus pain/pressure, headaches, and thick clear nasal drainage for over a year. Pt states her sinus pain is worsening rating at a 7/10. Pt is also asking which labs indicate she has a vi ral infection. Pt states she has been dealing with these symptoms for a long time and wants relief. Disposition/Recommendation: notified provider and awaiting recommendations. Information/Education: patient/caller able to teach back. Caller agreeable to plan of care: yes. The following references were used: none. Telephone Encounter - Ana Maria Church - 07/11/2021 8:42 AM CDT Kristen returned nurses call. Please call her back. Thank you! Telephone Encounter - Michelle Kee - 07/10/2021 4:28 PM CDT Reason for Communication: Patient called back to speak with a nurse. No nurses available at the time patient called. Please call back when able. Thank you! Telephone Encounter - Fouzia Dubon - 07/10/2021 8:05 AM CDT Reason for Communication: Patient is calling she would like a call back regarding some labs results of the virus showed up in her blood - please call her back at Current Can Nursing/Provider leave a detailed message?: yes Did the patient refuse triage through Nurse line? (for symptom based concerns): na Action Needed: Please call her back Name of Medication (if relevant): na Please send all scheduling replies to scheduling pool. documented in this encounter Plan of Treatment Not on filedocumented as of this encounter Visit Diagnoses Not on filedocumented in this encounter Additional Health Concerns Assessment Noted Time PHQ-9 Depression Total Score: 3 05/13/2013 2:06 PM PATIENT CARE documented as of this encounter Care Teams Shellfish Bed Worker Relationship Specialty Start Date End Date Suhail Lemus M.D. PCP - General Family Medicine 09/19/[address] [place] [phone] documented as of this encounter
--- OUTSIDE RECORDS SUMMARY | 2021-12-22 21:53 | XMS_ITS | Encounter Summary ---
:1945 Author Organization [facility] Address [address] [place] [address] Care Team Providers Name Role Phone Suhail Lemus M.D. Primary Care Provider Encounter Details Date Type Department Care Team Description 03/29/2020 Clinical Communication Department of Ernestina, Ophthalmology in [place] Reich M.D. [address] [place] [phone] Social History Tobacco Use Types Packs/Day Years Used Date Smoking Tobacco: Never Smokeless Tobacco: Never Alcohol Use Standard Drinks/Week Comments No 0 (1 standard drink = 0.6 oz pure alcoho l) Sex Assigned at Date Recorded Not on file documented as of this encounter Miscellaneous Notes Telephone Encounter - Emilie Fong - 03/29/2020 10:12 AM CST Called patient and left a voicemail. Rescheduled her follow up to 05/03 and her held injection to 05/09. ESIST Telephone Encounter - Oumou Escalante - 03/29/2020 8:10 AM CST Patient called and needs her 25th appointments rescheduled to after 05/02 and leave her a message on her phone ESIST documented in this encounter Plan of Treatment Not on filedocumented as of this encounter Visit Diagnoses Not on filedocumented in this encounter Additional Health Concerns Assessment Noted Time PHQ-9 Depression Total Score: 3 05/13/2013 2:06 PM GEODESIST documented as of this encounter Care Teams Retail Parts Professional Relationship Specialty Start Date End Date Suhail Lemus M.D. PCP - General Family Medicine 09/19/[address] [place] [phone] documented as of this encounter
--- OUTSIDE RECORDS SUMMARY | 2021-12-22 21:53 | XMS_ITS | Encounter Summary ---
:1945 Author Organization [facility] Address [address] [place] [address] Care Team Providers Name Role Phone Suhail Lemus M.D. Primary Care Provider Reason for Visit Reason Comments QM- colon CA screen Encounter Details Date Type Department Care Team Description 09/10/2020 Clinical Communication Department of MARAL Lemus- colon CA screen Family MedicineSuhail M.D. [address] [phone] [facility] [phone] [place], [place] (Work) [phone] Social History Tobacco Use Types Packs/Day Years Used Date Smoking Tobacco: Never Smokeless Tobacco: Never Alcohol Use Standard Drinks/Week Comments No 0 (1 standard drink = 0.6 oz pure alcoho l) Sex Assigned at Date Recorded Not on file documented as of this encounter Miscellaneous Notes Telephone Encounter - Katherine Ch LSariahP.N. - 09/10/2020 10:25 PM CDT Patient has an appointment with Lise Wang on 09/14/20 at which time we will address her need for colon CA screening which will be due 10/06/20. (Dr. Lemus is her primary) She is also due for her mammogram, Shingrix#1 and PPSV which will also be addressed. (09/10/20 BR) documented in this encounter Plan of Treatment Not on filedocumented as of this encounter Visit Diagnoses Not on filedocumented in this encounter Additional Health Concerns Assessment Noted Time PHQ-9 Depression Total Score: 3 05/13/2013 2:06 PM ASSOCIATE PROGRAMMER documented as of this encounter Care Teams Bicycle Racer Relationship Specialty Start Date End Date Suhail Lemus M.D. PCP - General Family Medicine 09/19/[address] [place] [phone] documented as of this encounter
--- OUTSIDE RECORDS SUMMARY | 2021-12-22 21:53 | XMS_ITS | Encounter Summary ---
:1945 Author Organization [facility] Address [address] [place] [address] Care Team Providers Name Role Phone Suhail Lemus M.D. Primary Care Provider Encounter Details Date Type Department Care Team Description 01/11/2021 Orders Only [facility] PCP [facility] Sa morena Alicea M.D. [address] [place], [place] [phone] (Wo rk) Social History Tobacco Use Types [...] Depression Total Score: 3 05/13/2013 2:06 PM RECEPTIONIST SECRETARY documented as of this encounter Care Teams Outside Plant Cable Engineer Relationship Specialty Start Date End Date Suhail Lemus M.D. PCP - General Family Medicine 09/19/[address] [place] [phone] documented as of this encounter
--- OUTSIDE RECORDS SUMMARY | 2021-12-22 21:53 | XMS_ITS | Encounter Summary ---
:1945 Author Organization [facility] Address [address] [place] [address] Care Team Providers Name Role Phone Suhail Lemus M.D. Primary Care Provider Reason for Visit Reason Comments Med Refill Encounter Details Date Type Department Care Team Description 2020 Refill Department of Family Medicine, Ally Wang, Med Refill [facility], in [place] [address] [phone] Social History Tobacco Use Types Packs/Day Years [...] Depression Total Score: 3 05/13/2013 2:06 PM MARRIAGE AND FAMILY THERAPIST documented as of this encounter Care Teams Water Resource Engineering Specialist Relationship Specialty Start Date End Date Suhail Lemus M.D. PCP - General Family Medicine 09/19/[address] [place] [phone] documented as of this encounter
--- OUTSIDE RECORDS SUMMARY | 2021-12-22 21:53 | XMS_ITS | Encounter Summary ---
:1945 Author Organization [facility] Address [address] [place] [address] Care Team Providers Name Role Phone Suhail Lemus M.D. Primary Care Provider Reason for Visit Reason Comments Back Pain Encounter Details Date Type Department Care Team Description 06/30/2021 Nurse Triage Department of [facility] Adele Infante, Back Pain Medicine, [facility], R.N. in [place], [place] [address] [place] [address] Social History Tobacco Use Types Packs/Day Years Used Date Smoking Tobacco: Former Smokeless Tobacco: Never Alcohol Use Standard Drinks/Week Comments No 0 (1 standard drink = 0.6 oz pure alcoho l) Sex Assigned at Date Recorded Not on file documented as of this encounter Miscellaneous Notes Telephone Encounter - Adele Infante, R.N. - 06/30/2021 9:05 PM CDT Chief Complaint / Reason for Call Patient is a 75 y.o. female calling regarding No chief complaint on file.. Assessment Concern: Fell on the ice a couple times this winter. Intermittent back pain since then. She reports muscle spasms. Pain 3/10 at rest currently. She states pain is 10/10 at times, with activity. Having difficulty standing on the left leg, but only when I am having this pain Present for: Months Home cares tried: Pain cream, Ibuprofen Calling to request: What to do. The recommended disposition is No disposition on file.. The clinic is closed. She declines an appointment in 24 hours in urgent care. She will call the clinic on Saturday for a same day appointment. Reason for Disposition ? ? [1] High-risk adult (e.g., age > 60 years, osteoporosis, chronic steroid use) AND [2] still hurts Protocols used: BACK [id number] documented in this encounter Plan of Treatment Not on filedocumented as of this encounter Visit Diagnoses Not on filedocumented in this encounter Additional Health Concerns Assessment Noted Time PHQ-9 Depression Total Score: 3 05/13/2013 2:06 PM WATER FILTERER HELPER documented as of this encounter Care Teams Guard Dance Hall Relationship Specialty Start Date End Date Suhail Lemus M.D. PCP - General Family Medicine 09/19/[address] [place] [phone] documented as of this encounter
--- OUTSIDE RECORDS SUMMARY | 2021-12-22 21:53 | XMS_ITS | Encounter Summary ---
:1945 Author Organization [facility] Address [address] [place] [address] Care Team Providers Name Role Phone Suhail Lemus M.D. Primary Care Provider Reason for Referral Outpatient (Routine) - Closed Specialty Diagnoses / Procedures Referred By Contact Refer red To Contact Suhail Lemus M. D. [facility] Region [address] [phone] Referral ID Status Reason Start Date Expiration Date Visits Requ ested Visits Authorized [id number] Closed 08/22/2021 08/22/2022 1 1 Outpatient (Routine) - Authorized Specialty Diagnoses / Procedures Referred By Contact Refer red To Contact Diagnoses Deficiency Estrogen Post Menopausal Suhail Lemus M.D. [facility] Region Procedures BMD Bone Density Spine Hips [address] [place] [phone] Referral ID Status Reason Start Date Expiration Date Visits V isits Requested Authorized [id number] Authorized 08/22/2021 08/22/2022 1 1 Encounter Details Date Type Department Care Team Description 08/22/2021 Orders Only [facility] PCP [facility] Alana Melton De ficiency Estrogen M.D. Post Menopausal [address] [place] [phone] Social History Tobacco Use Types Packs/Day Years Used Date Smoking Tobacco: Former Smokeless Tobacco: Never Alcohol Use Standard Drinks/Week Comments No 0 (1 standard drink = 0.6 oz pure alcoho l) Sex Assigned at Date Recorded Not on file documented as of this encounter Plan of Treatment Scheduled Orders Name Type Priority Associated Diagnoses Order S chedule BMD Bone Density Imaging RAD - Routine (most Deficiency Estrog en Expected: Spine Hips inpatients and all Post Menopausal 2021, outpatients) Expires: 02/18/2022 Scheduled Referrals Name Type Priority Associated Diagnoses Order S chedule Primary Care nurse Outpatient Referral Routine Ex pected: visit (clinic) - 09/05/2021, [facility] Region; Expires: BP check; BP check 2 only (HOME HELP AIDE) documented as of this encounter Visit Diagnoses Diagnosis Deficiency Estrogen Post Menopausal documented in this encounter Additional Health Concerns Assessment Noted Time PHQ-9 Depression Total Score: 3 05/13/2013 2:06 PM AUDIO VISUAL EQUIPMENT RENTAL CLERK documented as of this encounter Care Teams Braiding Operator Relationship Specialty Start Date End Date Suhail Lemus M.D. PCP - General Family Medicine 09/19/[address] [place] [phone] documented as of this encounter
--- OUTSIDE RECORDS SUMMARY | 2021-12-22 21:53 | XMS_ITS | Encounter Summary ---
:1945 Author Organization [facility] Address [address] [place] [address] Care Team Providers Name Role Phone Suhail Lemus M.D. Primary Care Provider Encounter Details Date Type Department Care Team Description 09/14/2020 Hospital Encounter Department of Best Patricia Laboratory Medicine nayeli PALMER M.D. [address] [phone] [place], [place] [phone] (W ork) [phone] Social History Tobacco Use Types Packs/Day Years [...] Name Priority Date/Time Associated Diagnosis Comme nts GI PATHOGEN PANEL, Routine 09/14/2020 10:00 AM Diarrhea Re sults for this PCR, F CDT procedure are i n the results section. documented in this encounter Results GI Pathogen Panel, PCR, Feces (09/14/2020 10:00 AM CDT) [facility] Method Time Signature Specimen Source STOOL 09/14/2020 [facility] 2:14 PM CDT Campylobacter Negative Negative 09/14/2020 [facility] species 2:14 PM CDT C. difficile toxin Negative Negative 09/14/2020 [facility] 2:14 PM CDT Plesiomonas Negative Negative 09/14/2020 [facility] shigelloides 2:14 PM CDT Salmonella species Negative Negative 09/14/2020 [facility] 2:14 PM CDT Vibrio species Negative Negative 09/14/2020 [facility] 2:14 PM CDT Vibrio cholerae Negative Negative 09/14/2020 [facility] 2:14 PM CDT Yersinia species Negative Negative 09/14/2020 [facility] 2:14 PM CDT Enteroaggregative E. Negative Negative 09/14/2020 [facility] coli (EAEC) 2:14 PM CDT Enteropathogenic E. Negative Negative 09/14/2020 [facility] coli (EPEC) 2:14 PM CDT Enterotoxigenic E. Negative Negative 09/14/2020 [facility] coli (ETEC) 2:14 PM CDT Shiga toxin Negative Negative 09/14/2020 [facility] producing E. coli 2:14 PM CDT Shigella/Enteroinvas Negative Negative 09/14/2020 [facility] molina E. coli 2:14 PM CDT Cryptosporidium Negative Negative 09/14/2020 [facility] species 2:14 PM CDT Cyclospora Negative Negative 09/14/2020 [facility] cayetanensis 2:14 PM CDT Entamoeba Negative Negative 09/14/2020 [facility] histolytica 2:14 PM CDT Giardia Negative Negative 09/14/2020 [facility] 2:14 PM CDT Adenovirus F40/41 Negative Negative 09/14/2020 [facility] 2:14 PM CDT Astrovirus Negative Negative 09/14/2020 [facility] 2:14 PM CDT Norovirus GI/GII Negative Negative 09/14/2020 [facility] 2:14 PM CDT Rotavirus Ag, F Negative Negative 09/14/2020 [facility] 2:14 PM CDT Sapovirus Negative Negative 09/14/2020 [facility] 2:14 PM CDT Comment: ----ADDITIONAL INFORMATION---- This assay is performed using the FDA-cl eared FilmArray GI Panel ([employer] Specimen Anatomical Collection Method Collection Time Receive d Time (Source) Location / / Volume Laterality Stool (Stool) 09/14/2020 10:00 09/14/2020 AM CDT 12:38 PM CDT Best Patricia III, M.D. LAB MICROBIOLOGY - [facility] ORDERABLES Performing Organization Address City/State/ZIP Code Phon e Number [facility]- [address] [place], [place] [address] [facility] [place] [address] System in [place] [address] documented in this encounter Visit Diagnoses Diagnosis Diarrhea documented in this encounter Additional Health Concerns Assessment Noted Time PHQ-9 Depression Total Score: 3 05/13/2013 2:06 PM NUCLEAR UNIT OPERATOR documented as of this encounter Care Teams Pond Scaler Relationship Specialty Start Date End Date Suhail Lemus M.D. PCP - General Family Medicine 09/19/[address] [place] [phone] documented as of this encounter
--- OUTSIDE RECORDS SUMMARY | 2021-12-22 21:53 | XMS_ITS | Encounter Summary ---
:1945 Author Organization [facility] Address [address] [place] [address] Care Team Providers Name Role Phone Suhail Lemus M.D. Primary Care Provider Reason for Visit Reason Comments Med Refill Encounter Details Date Type Department Care Team Description 06/08/2020 Refill Department of Family Medicine, Suhail Ragland M.D. Med Refill [facility], in [place] [address] [phone] [place], [place] [phone] Social History Tobacco Use Types Packs/Day Years [...] Depression Total Score: 3 05/13/2013 2:06 PM NEWS DIRECTOR documented as of this encounter Care Teams Wet End Tester Relationship Specialty Start Date End Date Suhail Lemus M.D. PCP - General Family Medicine 09/19/[phone] [place] [phone] documented as of this encounter
--- OUTSIDE RECORDS SUMMARY | 2021-12-22 21:53 | XMS_ITS | Encounter Summary ---
:1945 Author Organization [facility] Address [address] [place] [address] Care Team Providers Name Role Phone Suhail Lemus M.D. Primary Care Provider Reason for Referral Outpatient (Routine) - Authorized Specialty Diagnoses / Procedures Referred By Contact Refer red To Contact Emergency Medicine Diagnoses Insect Bite (Includes Tick) Nonvenomous Left Front Wall Thorax Initial Kika Landis [facility] [address] [place] [id number] Referral ID Status Reason Start Date Expiration Date Visits V isits Requested Authorized [id number] Authorized 08/16/2021 08/16/2022 1 1 Reason for Visit Reason Comments Insect Bite Bug bite-unk type of bug/tic k, left breast-since bite has noted neck stiffness when turning side to side-no fever or chills Encounter Details Date Type Department Care Team Description 08/16/2021 Emergency [facility] Kika Landis I nsect Bite (Includes Tick) Nonvenomous Left Front Wall Thorax Initial (Primary Dx); Norma Murillo M.D. Strain Neck Initial [id number] [id number] [phone] Social History Tobacco Use Types Packs/Day Years Used Date Smoking Tobacco: Former Smokeless Tobacco: Never Alcohol Use Standard Drinks/Week Comments No 0 (1 standard drink = 0.6 oz pure alcoho l) Sex Assigned at Date Recorded Not on file documented as of this encounter Last Filed Vital Signs Vital Sign Reading Time Taken Comments Blood Pressure 133/106 08/16/2021 6:12 patient states s he has PM CDT BP medication an d normal BP is elevated, pt denies Hypertens molina sx Pulse 75 08/16/2021 6:12 PM CDT Temperature 36.2 ??C (97.2 ??F) 08/16/2021 6:12 PM CDT Respiratory Rate 18 08/16/2021 6:12 PM CDT Oxygen Saturation 95% 08/16/2021 6:12 PM CDT Inhaled Oxygen - - Concentration Weight - - Height 160 cm (5' 3) 08/16/2021 4:40 PM CDT Body Mass Index - - documented in this encounter Discharge Instructions Discharge InstructionsConKiak estrada M.D. - 08/16/2021 5:59 PM CDT Thank you for allowing us to care for you today. After evaluation the cause of your symptoms is unclear and while your evaluation is reassuring thereis a chance that this could get worse despite current treatment. We are presuming that this was a tick that bit you and this is why we are treating you empirically with antibiotics You should: Please take the antibiotics as prescrived It is very important to follow-up as outlined in the discharge instructions and to return to the Emergency Department immediately if you have any new or worsening symptoms including: - Persistent vomiting - Fevers > 100.4 - New or worsening pain - Trouble breathing - Loss of feeling or strength in your face or limbs - Trouble swallowing, seeing, talking, or walking - If you faint - have increasing pain, swelling, redness, or pus coming from the bite that could indicate a worsening infection, or if you have any other concerns. ---- Take all the medications as prescribed. Take Ibuprofen 600 mg by mouth every 4-6 hours as needed for pain or fevers. Take this with food to decrease stomach discomfort. Take 1000 mg of Tylenol (acetaminophen) every 6 hours as needed for pain or fevers. --------- AttachmentsThe following attachments cannot be sent through Care Everywhere.Tick Bite Information Adult (Guyanese)Cervical Strain and Sprain With [facility] (Guyanese)documented in this encounter Medications at Time of [...] NEEDED FOR WHEEZING OR SHORTNESS OF BREATH doxycycline monohydrate Take 1 capsule (100 20 capsule 0 03/202108/26/2021 (MONODOX) 100 mg mg total) by mouth 2 capsule (two) times a day for 10 days. albuterol (PROVENTIL Inhale 2 puffs every 1 [...] mouth daily. documented as of this encounter ED Notes Kika Landis M.D. - 08/16/2021 5:50 PM CDT [facility] ENCOUNTER SUBJECTIVE CHIEF COMPLAINT/REASON FOR VISIT Insect Bite (Bug bite-unk type of bug/tick, left breast-since bite has noted neck stiffness when turning side to side-no fever or chills) HISTORY OF PRESENT ILLNESS Kristen Pederson is a 75 y/o F w/ h/o HTN presenting w/ concerns for a bug bite. Pt states that she was potentially bitten by a bug approximately 4 days ago. States she never saw the bug and is not sure what type of bug it was however, believes it was black and had a hard shell. States that it was embedded in the skin but she was able to pluck it out and States she did not think much of it but noted over the past 4 days that the area around the site of the bite on her L chest wall has continued to be red. Denies swelling, discharge, itching. Denies necrotizing portion of wound. Denies fever/chills, cough, shortness of breath, chest pain, abd pain, n/v/d/c, urinary sx. This morning states that she awoke with neck pain diffusely. States that it felt tight like she had slept in a strange position. Denies headache, lightheadedness, numbness/tingling. Denies stiffness, visual changes. 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 Cataract ??? Degeneration Macular ??? Hepatitis Hepatitis B ??? Hypertension NOS ??? 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 HENT: Negative for congestion, ear pain, rhinorrhea, sore throat and trouble swallowing. Respiratory: Negative for cough and shortness of breath. Cardiovascular: Negative for chest pain and palpitations. Gastrointestinal: Negative for abdominal pain, constipation, diarrhea, nausea and vomiting. Musculoskeletal: Positive for neck pain (diffusely). Negative for back pain and gait problem. Skin: Positive for lesions and rash. Neurological: Negative for dizziness, weakness, light-headedness, numbness and headaches. OBJECTIVE Initial Vitals Temperature Pulse Rate Heart Rate Resp Rate Blood Pressure SpO2 08/16/21 1639 08/16/21 1639 -- 08/16/21 1639 08/16/21 1639 08/16/21 1639 36.5 ??C 89 20 (!) 182/81 97 % Pain Score 08/16/21 1640 7 PHYSICAL EXAMINATION Constitutional: Nursing note and vitals reviewed. She appears not lethargic. No distress. HENT: Head: Normocephalic and atraumatic. No signs of injury. Nose: No nasal discharge. Mouth/Throat: Oropharynx is clear and moist. Mucous membranes are moist. Eyes: Conjunctivae are normal. Pupils are equal, round, and reactive to light. Neck: Trachea normal and phonation normal. Neck supple. Cardiovascular: Normal rate, regular rhythm and normal pulses. Pulses: Radial pulses are 2+ on the right side, and 2+ on the left side. Pulmonary/Chest: Effort normal. No tachypnea. No respiratory distress. Abdominal: Normal appearance and non-distended. Musculoskeletal: Cervical back: Full passive range of motion without pain, normal range of motion and neck supple. No torticollis. Normal range of motion. Lymphadenopathy: She has no cervical adenopathy. Neurological: Alert and oriented to person, place, and time. She has normal strength and intact cranial nerves. Focal sensory deficits do not include right face, right arm, left face and left arm. GCS eye subscore is 4. GCS verbal subscore is 5. GCS motor subscore is 6. Normal speech. Gait normal. Skin: Skin is warm and dry. Lesion and rash noted. Rash is blanching. Rash is not raised. She is notdiaphoretic. ASSESSMENT/PLAN IMPRESSION AND PLAN MEDICAL DECISION MAKING: - w/u includes pain ctrl and supportive tx as directed below Assessment: Kristen Pederson is a 75 y.o. female p/w insect bite and neck pain. Symptoms adequately controlled during ED stay. It is likely symptoms are due to potential tick bite with potential beginning of the development of a bullseye rash and therefore, meets criteria for treatment with antibiotics. In terms of the patient's neck pain, no signs of meningismus, well appearing,nontoxic, neurological examination intact, doubt meningitis despite the concern given by cloth dye range operator. Plan for discharge. Vitals stable throughout ED course. A discharge discussion was held counseling the patient on the likely cause of the symptoms, lack of likely further emergent process requiring further work-up and management, and at home instructions, which included: -- Prescription(s): doxycycline, instructions for OTC meds -- Follow-up: PCP -- Strict return precautions Questions from the patient were addressed. At time of discharge, pt was hemodynamically stable, functional/ambulating at baseline levels, and pain (if any) was adequately controlled on oral regimens asappropriate. Appropriate diagnostic study results reviewed with patient and any present family members and all questions answered to the best of the medical team's knowledge. Pt amenable to discharge and advised on return precautions and follow-up as outlined in detailed patient discharge instructions. Pt expressed understanding of all discussed items above. Pt was discharged in stable condition. DIFFERENTIAL DIAGNOSIS DDx includes but is not limited to: Bug bite: Concern subsequent tick-borne illnesses (Lyme, RMSF, Tularemia, Babesiosis) though uncleargiven poor history. Also consider other ectoparasites (scabies, bed bugs and lice) though less likely given singular bite. Also consider surrounding cellulitis. Doubt underlying abscess. Exam not consistent necrotizing soft tissue infection I reviewed previous medical records including documentation from previous visits. Final Diagnoses: as of 08/16/21 1820 Insect Bite (Includes Tick) Nonvenomous Left Front Wall Thorax Initial Strain Neck Initial Kika Landis M.D. 09/04/212023 documented in this encounter Plan of Treatment Scheduled Referrals Name Type Priority Associated Diagnoses Order S chedule POST ED VISIT Outpatient Referral Routine Insect Bite (Include s Expected: Family Medicine Tick) Nonvenomous 022 Left Front Wall (Approximate ), Thorax Initial Expires: 11/16/2022 documented as of this encounter Visit Diagnoses Diagnosis Insect Bite (Includes Tick) Nonvenomous Left Front Wall Thorax Initial - Primary Strain Neck Initial documented in this encounter Additional Health Concerns Assessment Noted Time PHQ-9 Depression Total Score: 3 05/13/2013 2:06 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 PCP - General Family Medicine 09/19/[address] [place] [phone] documented as of this encounter
--- OUTSIDE RECORDS SUMMARY | 2021-12-22 21:53 | XMS_ITS | Encounter Summary ---
:1945 Author Organization [facility] Address [address] [place] [address] Care Team Providers Name Role Phone Suhail Lemus M.D. Primary Care Provider Reason for Visit Reason Comments Leg Swelling Encounter Details Date Type Department Care Team Description 09/14/2021 Nurse Triage Department of Family Florina Zazueta, Leg Swelling Medicine, [facility], in [place], ([address] [phone] Social History Tobacco Use Types Packs/Day Years Used Date Smoking Tobacco: Former Smokeless Tobacco: Never Alcohol Use Standard Drinks/Week Comments No 0 (1 standard drink = 0.6 oz pure alcoho l) Sex Assigned at Date Recorded Not on file documented as of this encounter Miscellaneous Notes Telephone Encounter - Florina Zazueta R.N. - 09/14/2021 10:38 AM CDT Chief Complaint / Reason for Call Patient is a 75 y.o. female calling regarding Leg Swelling. Assessment Concern: Patient reports bilateral leg swelling and shortness of breath for over a year. She reportsher swelling is worsening and she has pitting edema. Reports new mild numbness in toes. Present for: One year Home cares tried: none Calling to request: Appointment The recommended disposition is See a health care provider within 24 hours. Patient was warm transferred to [place] at the clinic for further assistance. Reason for Disposition ??? [1] MODERATE leg swelling (e.g., swelling extends up to knees) AND [2] new- onset or worsening Protocols used: LEG SWELLING AND RAIJL-SYMBA-IY Care Advice Patient/Caregiver understands and will follow care advice?: Yes, able to teach back SEE HCP (OR PCP TRIAGE) WITHIN 4 HOURS: * IF OFFICE WILL BE OPEN: You need to be seen within the next 3 or 4 hours. Call your doctor (or GOVERNMENT DOCUMENTS LIBRARIAN/PA) now or as soon as the office opens. * IF OFFICE WILL BE CLOSED AND NO PCP (PRIMARY CARE PROVIDER) SECOND-LEVEL TRIAGE: You need to be seen within the next 3 or 4 hours. A nearby Urgent Care Center (UCC) is often a good source of care. Another choice is to go to the ED. Go sooner if you become worse. * IF OFFICE WILL BE CLOSED AND PCP SECOND-LEVEL TRIAGE REQUIRED: You may need to be seen. Your doctor (or GOVERNMENT DOCUMENTS LIBRARIAN/PA) will want to talk with you to decide what's best. I'll page the on-call provider now. Ifyou haven't heard from the provider (or me) within 30 minutes, call again. NOTE: If on-call providercan't be reached, send to UCC or ED. NOTE TO TRIAGER: * Use nurse judgment to select the most appropriate source of care. * Consider both the urgency of the patient's symptoms AND what resources may be needed to evaluate and manage the patient. SOURCES OF CARE: * ED: Patients who may need surgery or hospital admission need to be sent to an ED. So do most patients with serious symptoms or complex medical problems. * UCC: Some UCCs can manage patients who are stable and have less serious symptoms (e.g., minor illnesses and injuries). The triager must know the UCC capabilities before sending a patient there. If unsure, call ahead. * OFFICE: If patient sounds stable and not seriously ill, consult PCP (or follow your office policy)to see if patient can be seen NOW in office. CARE ADVICE given per Leg Swelling and Edema (Adult) guideline. CALL BACK IF: * Breathing difficulty or chest pain occurs * You become worse LEG SWELLING OR EDEMA: * Elevate your legs or try to lie down one or two times a day for 20 minutes. * Avoid socks with an elastic band at the top. * Wear comfortable shoes. 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 PCP - General Family Medicine 09/19/[address] [place] [phone] documented as of this encounter
--- OUTSIDE RECORDS SUMMARY | 2021-12-22 21:53 | XMS_ITS | Encounter Summary ---
:1945 Author Organization [facility] Address [address] [place] [address] Care Team Providers Name Role Phone Suhail Lemus M.D. Primary Care Provider Encounter Details Date Type Department Care Team Description 11/24/2020 Orders Only [facility] Su[facility] Lemus, Screening Mammogram Breast Cancer; M.DSariah Deficiency Estrogen Post Menopausal [address] [place] [phone] Social History Tobacco Use Types Packs/Day Years Used Date Smoking Tobacco: Former Smokeless Tobacco: Never Alcohol Use Standard Drinks/Week Comments No 0 (1 standard drink = 0.6 oz pure alcoho l) Sex Assigned at Date Recorded Not on file documented as of this encounter Plan of Treatment Not on filedocumented as of this encounter Visit Diagnoses Diagnosis Screening Mammogram Breast Cancer Deficiency Estrogen Post Menopausal documented in this encounter Additional Health Concerns Assessment Noted Time PHQ-9 Depression Total Score: 3 05/13/2013 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 PCP - General Family Medicine 09/19/[address] [phone] documented as of this encounter
--- OUTSIDE RECORDS SUMMARY | 2021-12-22 21:53 | XMS_ITS | Encounter Summary ---
:1945 Author Organization [facility] Address [address] [place] [address] Care Team Providers Name Role Phone Suhail Lemus M.D. Primary Care Provider Reason for Referral Outpatient (Routine) - Closed Specialty Diagnoses / Procedures Referred By Contact Refer red To Contact Diagnoses Dyspnea On Exertion Suhail Lemus M.D. [facility] [place] [facility] Procedures DX Chest AP or PA and Lateral [address] [place] [phone] Referral ID Status Reason Start Date Expiration Date Visits Requ ested Visits Authorized [id number] Closed 07/05/2021 07/05/2022 1 1 Outpatient (Routine) - Closed Specialty Diagnoses / Procedures Referred By Contact Refer red To Contact Diagnoses Dyspnea On Exertion Suhail Lemus M.D. [facility] [place] [facility] Procedures Echo Transthoracic (TTE) [address] [place] [phone] Referral ID Status Reason Start Date Expiration Date Visits Requ ested Visits Authorized [id number] Closed 07/05/2021 07/05/2022 1 1 Reason for Visit Reason Comments Back Pain Back pain has been terrible for the past 3 weeks hurts to sleep or touch back Urinary Tract Infection Frequent urine every five mi n Appointment Request (Routine) - Closed Specialty Diagnoses / Procedures Referred By Contact Refer red To Contact Family Medicine Referral ID Status Reason Start Date Expiration Date Visits Requ ested Visits Authorized [id number] Closed 07/03/2021 07/03/2022 1 1 Encounter Details Date Type Department Care Team Description 07/05/2021 Office Visit Department of Family Suhail Lemus Dy spnea On Exertion (Primary Dx); Medicine, Roni Szymanski M.D. Morbid Obesity (HCC); Clinic, in [place] [address] Frequen cy Urinary; [place], [place] [address] Pain Low Back Unspecified; [address] [place], [place] [address]VD [place], [place] [phone] Social History Tobacco Use Types Packs/Day Years Used Date Smoking Tobacco: Former Smokeless Tobacco: Never Tobacco Cessation: Counseling Given: No Alcohol Use Standard Drinks/Week Comments No 0 (1 standard drink = 0.6 oz pure alcoho l) Sex Assigned at Date Recorded Not on file documented as of this encounter Last Filed Vital Signs Vital Sign Reading Time Taken Comments Blood Pressure 153/84 07/05/2021 4:33 PM CDT Pulse 108 07/05/2021 4:33 PM CDT Temperature 36.4 ??C (97.5 ??F) 07/05/2021 4:33 PM CDT Respiratory Rate - - Oxygen Saturation 96% 07/05/2021 4:33 PM CDT Inhaled Oxygen Concentration - - Weight 131 kg (288 lb 5.8 oz) 07/05/2021 4:33 PM CDT Height - - Body Mass Index 52.4 09/14/2020 10:26 AM CDT documented in this encounter Progress Notes Suhail Lemus M.D. - 07/05/2021 4:30 PM CDT SUBJECTIVE CHIEF COMPLAINT / REASON FOR VISIT Kristen is a 75 y.o. female who presents for evaluation of Back Pain (Back pain has been terrible for the past 3 weeks hurts to sleep or touch back ) and Urinary Tract Infection (Frequent urine every fivemin ). HISTORY OF PRESENT ILLNESS Kristen is a pleasant 75 y.o. female who presents to clinic today with concerns of shortness of breath that is exacerbated with exertion. Symptoms have been present for the last several years but have escalated over the last several months. No chest pain reported. He has also been battling significant weight gain which has been worsening as well. She enjoys eating. She has also had back pain over the past three weeks describes as an ache and a spasm which is worse with activity and better with rest. She has also noticed an increase in urinary frequency. Looking for further evaluation.. The following portions of the patient's history were reviewed and updated as appropriate: allergies,current medications, family history, medical history, social history, surgical history and problem list. Brief Review of Systems: A brief review of systems was negative except for that mentioned in the history of present of illness. OBJECTIVE PHYSICAL EXAM BP 153/84 (BP Location: Left arm, Patient Position: Sitting, Cuff Size: Large) Pulse 108 Temp 36.4 ??C (Temporal) Wt 131 kg SpO2 96% BMI 52.40 kg/m?? Body mass index is 52.4 kg/m??. GENERAL: Patient is in no distress. Capable of full communication without difficulty. Patient is polite and cooperative. HEENT: Normocephalic. EOMI, PERRL, Canals patent, TMs normal. Oropharynx without lesion of mucosa. Pharyngeal rises symmetrically without exudate. HEART: Regular rate and rhythm. No murmurs, gallops or rubs noted. LUNGS: Clear to auscultation bilaterally. No expiratory wheeze. No accessory muscles of respiration noted. ABDOMEN: Obese, nontender to palpation. No hepato-splenomegaly. No mass. Normal bowel sounds in all 4 quadrants. EXTREMITIES: 2+ pitting edema to mid moore. NEURO: Alert and oriented x3, nonfocal, moving all 4 extremities. CN II-XII grossly intact. PSYCH: Affect is appropriate ASSESSMENT / PLAN #1 Dyspnea On Exertion #2 Morbid Obesity (HCC) Symptoms likely multifactorial. Concern for potential heart failure. Laboratory evaluation requestedalong with chest x-ray and echocardiogram. Symptoms also exacerbated and contributed by her significant weight gain. She is wanting help with weight loss. Discussed Noom, which her daughter has had much success. I encouraged her to give it a try. Will follow up with patient once results become available. #3 Frequency Urinary Urinalysis requested for further clarity. Likely stress incontinence given significant weight. Consider physical therapy. #4 Pain Low Back Unspecified Will back muscle strain. Discussed conservative management. Monitor. #5 Apnea Sleep Obstructive Discussed dietary and exercise modifications. Discussed CPAP treatment which she is not wanting to undergo at this time. Continue to monitor. Total time 42 minutes. Patient was instructed to follow up [...] Procedure Name Priority Date/Time Associated Comments Diagnosis HC T4 FREE Routine 07/05/2021 5:23 Results for this PM CDT procedure are i n the results section. THYROID FUNCTION Routine 07/05/2021 5:23 Dyspnea On Results for this CASCADE, S PM CDT Exertion procedure are i n the results section. NT-PRO B-TYPE Routine 07/05/2021 5:23 Dyspnea On Results for this NATRIURETIC PEPTIDE PM CDT Exertion procedur e are in (BNP), S the results section. CBC WITH DIFFERENTIAL, B Routine 07/05/2021 5:23 Dyspnea On Results for this PM CDT Exertion procedure are i n the results section. C-REACTIVE PROTEIN Routine 07/05/2021 5:23 Dyspnea On Result s for this (CRP), S/P PM CDT Exertion procedure are i n the results section. COMPREHENSIVE METABOLIC Routine 07/05/2021 5:23 Dyspnea On R esults for this PANEL, S/P PM CDT Exertion procedure are i n the results section. THYROPEROXIDASE (TPO) Routine 07/05/2021 5:22 Res ults for this ABS, S PM CDT procedure are i n the results section. URINALYSIS WITH Routine 07/05/2021 4:48 Frequency Urinary Resu lts for this MICROSCOPIC IF PM CDT procedure are in INDICATED, U the results section. HC URINALYSIS AUTO WO Routine 07/05/2021 4:48 Res ults for this MICRO PM CDT procedure are i n the [...] For the complete report, see the Order-L StageBloc Documents. Final Impressions 1. Extremely challenging image [...] complete report, see the Order-L evel Documents. Suhial Lemus M.D. CV ECHO PROCEDURES T4 (Thyroxine), Free, Serum (07/05/2021 5:23 PM CDT) athologist Signature T4 (Thyroxine), 1.1 0.9 - 1.7 07/06/2021 [facility] Free, S ng/dL 1:45 PM CDT Comment: Biotin has been identified by the eze mccormack as a potential interfering substance. ??Higher concentr ations of biotin may be found in multivitamins, hair/nail supple ments, and workout supplements. ??If the result does not ma [facility] clinical observations, repeat testing after patient refrains fr om the use of supplements for at least 12 hours. Specimen Anatomical Collection Method Collection Time Receive d Time (Source) Location / / Volume Laterality Blood 07/05/2021 5:23 PM 2 5:25 CDT PM CDT Suhail Lemus M.D. LAB BLOOD ADD-ON Performing Organization Address City/State/ZIP Code Phon e Number [facility]- [address] [place], [place] [address]keyla [place], [place] [address] [place] [address] System in [place] [address] NT-Pro B-Type Natriuretic Peptide (BNP) (07/05/2021 5:23 PM CDT) athologist Signature NT-Pro BNP 50 <=227 pg/mL 07/05/2021 [facility] 5:54 PM CDT Comment: NT-proBNP values less than 300 pg/mL hav e a 99% negative predictive value for excluding acute congestive heart salo lure. A cutoff of 1200 pg/mL for patients with an eGFR<60 yields a diagno stic sensitivity and specificity of 89% and 72% for acute congestive heart f ailure. ??A diagnostic NT-proBNP cutoff of 900 pg/mL has been suggested i n adults 50-75 years of age in the absence of renal failure. Biotin has been identified by the eze mccormack as a potential interfering substance. ??Higher concentr ations of biotin may be found in multivitamins, hair/nail supple ments, and workout supplements. ??If the result does not ma [facility] clinical observations, repeat testing after patient refrains fr om the use of supplements for at least 12 hours. Specimen Anatomical Collection Method Collection Time Receive d Time (Source) Location / / Volume Laterality Blood (Blood, 07/05/2021 5:23 PM 07/06/19 5:25 Venous) CDT PM CDT Suhail Lemus M.D. LAB BLOOD ADD-ON Performing Organization Address [facility]/ZIP Code Phon e Number [address] [address] [place] [address] (ABNORMAL) CRP (C-Reactive Protein) (07/05/2021 5:23 PM CDT) P athologist Signature C-Reactive 11.4 (H) <=8.0 mg/L 07/05/2021 [facility] Protein (CRP), 5:44 PM CDT P Specimen Anatomical Collection Method Collection Time Receive d Time (Source) Location / / Volume Laterality Blood (Blood, 07/05/2021 5:23 PM 07/06/19 5:25 Venous) CDT PM CDT Suhail Lemus M.D. LAB BLOOD ADD-ON Performing Organization Address City/[facility]/ZIP Code Phon e Number [address] [address] [place] [address] (ABNORMAL) CBC with Differential, Blood (07/05/2021 5:23 PM CDT) [facility] Method Time Signature Hemoglobin 14.4 11.6 - 07/05/2021 [facility] 15.0 g/dL 5:32 PM CDT Hematocrit 44.8 35.5 - 07/05/2021 [facility] 44.9 % 5:32 PM CDT Erythrocytes 5.29 (H) 3.92 - 07/05/2021 [facility] 5.13 5:32 PM CDT x10(12)/L MCV 84.7 78.2 - 07/05/2021 [facility] 97.9 fL 5:32 PM CDT RBC Distrib Width 14.4 12.2 - 07/05/2021 [facility] 16.1 % 5:32 PM CDT Platelet Count 296 157 - 371 07/05/2021 [facility] x10(9)/L 5:32 PM CDT Leukocytes 11.1 (H) 3.4 - 9.6 07/05/2021 [facility] x10(9)/L 5:32 PM CDT Neutrophils 8.64 (H) 1.56 - 07/05/2021 [facility] 6.45 5:32 PM CDT x10(9)/L Lymphocytes 1.85 0.95 - 07/05/2021 [facility] 3.07 5:32 PM CDT x10(9)/L Monocytes 0.42 0.26 - 07/05/2021 [facility] 0.81 5:32 PM CDT x10(9)/L Eosinophils 0.18 0.03 - 07/05/2021 [facility] 0.48 5:32 PM CDT x10(9)/L Basophils 0.02 0.01 - 07/05/2021 [facility] 0.08 5:32 PM CDT x10(9)/L Specimen Anatomical Collection Method Collection Time Receive d Time (Source) Location / / Volume Laterality Blood (Blood, 07/05/2021 5:23 PM 07/06/19 5:25 Venous) CDT PM CDT Suhail Lemus M.D. LAB BLOOD ADD-ON Performing Organization Address City/State/ZIP Code Phon e Number [facility]- [address] [place] [phone] [place] [address] [address] (ABNORMAL) Thyroid Function [place] (07/05/2021 5:23 PM CDT) athologist Signature TSH, Sensitive 4.3 (H) 0.3 - 4.2 07/05/2021 [facility] mIU/L 7:00 PM CDT Specimen Anatomical Collection Method Collection Time Receive d Time (Source) Location / / Volume Laterality Blood (Blood, 07/05/2021 5:23 PM 07/06/19 5:25 Venous) CDT PM CDT Suhail Lemus M.D. LAB BLOOD ADD-ON Performing Organization Address City/State/ZIP Code Phon e Number [place] [address] [place] [address] [place] [address] System in [place] [address] Bl (ABNORMAL) Comprehensive Metabolic Panel (07/05/2021 5:23 PM CDT) athologist Signature Potassium, P 4.2 3.6 - 5.2 07/05/2021 CNFL mmol/L 5:44 PM CDT Sodium, P 138 135 - 145 07/05/2021 [facility] mmol/L 5:44 PM CDT Chloride, P 103 98 - 107 07/05/2021 [facility] mmol/L 5:44 PM CDT Bicarbonate, P 27 22 - 29 07/05/2021 [facility] mmol/L 5:44 PM CDT Anion Gap, P 8 7 - 15 07/05/2021 [facility] 5:44 PM CDT BUN (Blood Urea 17 6 - 21 07/05/2021 [facility] Nitrogen), P mg/dL 5:44 PM CDT Creatinine 0.79 0.59 - 07/05/2021 [facility] 1.04 mg/dL 5:44 PM CDT eGFR-Black/Afric 85 >=60 07/05/2021 CN[facility] an [place] mL/min/BSA 5:44 PM CDT Comment: ----ADDITIONAL INFORMATION---- Estimated GFR calculated using the 2009 CKD_EPI creatinine equation. eGFR Non-Black/ 73 >=60 mL/min/BSA 5:44 PM CDT CNFL Comment: ----ADDITIONAL INFORMATION---- Estimated GFR calculated using the 2009 CKD_EPI creatinine equation. Calcium, Total, P 9.8 8.8 - 10.2 mg/dL 07/05/2021 5:44 PM CDT CNFL Glucose, P 171 (H) 70 - 140 mg/dL 07/05/2021 5:44 PM CDT C NFL Protein, Total, P 7.2 6.3 - 7.9 g/dL 07/05/2021 5:44 P M CDT CNFL Albumin, P 4.0 3.5 - 5.0 g/dL 07/05/2021 5:44 PM CDT C NFL Aspartate Aminotransferase 24 8 - 43 U/L 07/05/2021 5 :44 PM CDT CNFL (AST), P Alkaline Phosphatase, P 142 (H) 35 - 104 U/L 07/05/2021 5: 44 PM CDT CNFL Alanine Aminotransferase 28 7 - 45 U/L 07/05/2021 5:4 4 PM CDT CNFL (ALT), P Bilirubin, Total, P 0.4 <=1.2 mg/dL 07/05/2021 5:44 PM CDT CNFL Specimen Anatomical Collection Method Collection Time Receive d Time (Source) Location / / Volume Laterality Blood (Blood, 07/05/2021 5:23 PM 07/06/19 5:25 Venous) CDT PM CDT Suhail Lemus M.D. LAB BLOOD ADD-ON Performing Organization Address City/[facility] Code Phon e Number [phone] [place] [address] LAB [place] [phone] System in [address] Thyroperoxidase (TPO) Antibodies (07/05/2021 5:22 PM CDT) Patholo gist Method Time Signature Thyroperoxidase Ab, 9.1 <34.0 07/06/2021 ECLR S IU/mL 3:47 PM CDT Specimen Anatomical Collection Method Collection Time Receive d Time (Source) Location / / Volume Laterality Blood 07/05/2021 5:22 PM 3:02 CDT PM CDT Suhail Lemus M.D. LAB BLOOD ADD-ON Performing Organization Address City/State/ZIP Code Phon e Number [facility]- [address] [place] [phone] [facility] [place] [address] [address] DX Chest AP or PA and Lateral [...] chest, no acute cardiopulmonary d isease. Suhail THOMAS DIAGNOSTIC IMAGING PROCE [facility] Microscopic Manual (07/05/2021 4:48 PM CDT) athologist Signature White Blood 4-10 /hpf 07/05/2021 CNFL Cells 5:11 PM CDT Comment: ----REFERENCE VALUE---- Males: 0-3 Females: 0-10 Unknown: 0-10 Red Blood Cells Occ-2 0 - 2 /hpf 07/05/2021 5:11 PM CDT CNFL Dysmorphic Red Blood Cells <=25 <=25 % 07/05/2021 5: 11 PM CDT CNFL Squamous Cells Occ-3 /hpf 07/05/2021 5:11 PM CDT CN FL Specimen Anatomical Collection Method Collection Time Receive d Time (Source) Location / / Volume Laterality Urine 07/05/2021 4:48 PM 4:48 CDT PM CDT Suhail Lemus M.D. LAB URINE ORDERABLES Performing Organization Address City/State/ZIP Code Phon e Number [address] [address] [place] [address] (ABNORMAL) Urinalysis with Microscopic if Indicated (07/05/2021 4:48 PM CDT) P athologist Signature Source Urine, 07/05/2021 CNFL Urine, Clean 4:48 PM CDT Catch Clarity Clear Clear 07/05/2021 CNFL 4:52 PM CDT Color Yellow 07/05/2021 CNFL 4:52 PM CDT Comment: ----REFERENCE VALUE---- Colorless Yellow Angie Blood Negative Negative 07/05/2021 4:52 PM CDT CNFL Nitrite Negative Negative 07/05/2021 4:52 PM CDT CNFL Leukocyte Esterase Trace (A) Negative 07/05/2021 4:52 PM CD T CNFL Protein Negative mg/dL 07/05/2021 4:52 PM CDT CNFL Comment: ----REFERENCE VALUE---- Negative Trace Glucose Negative Negative mg/dL 07/05/2021 4:52 PM CDT CN FL Ketones, QI(U) Negative Negative mg/dL 07/05/2021 4:52 PM C DT CNFL Bilirubin Negative Negative 07/05/2021 4:52 PM CDT CNFL pH 5.5 5.0 - 8.0 07/05/2021 4:52 PM CDT CNFL Specific [place] 1.015 1.001 - 1.035 07/05/2021 4:52 PM CDT CNFL Urobilinogen 0.2 0.2 - 1.0 mg/dL 07/05/2021 4:52 PM CD T CNFL Specimen Anatomical Collection Method Collection Time Receive d Time (Source) Location / / Volume Laterality Urine (Urine, 07/05/2021 4:48 PM 07/06/19 4:48 Clean Catch) CDT PM CDT Suhail Lemus M.D. 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 PCP - General Family Medicine 09/19/[address] [place] [phone] documented as of this encounter
--- OUTSIDE RECORDS SUMMARY | 2021-12-22 21:53 | XMS_ITS | Encounter Summary ---
:1945 Author Organization [facility] Address [address] [place] [address] Care Team Providers Name Role Phone Suhail Lemus M.D. Primary Care Provider Encounter Details Date Type Department Care Team Description 08/16/2020 [facility], Monitoring For Therapeutic Drug Therapy; MSariahDSariah Screening Examination Diabetes Mellitus [address] [place] [phone] Social History Tobacco Use Types Packs/Day Years Used Date Smoking Tobacco: Never Smokeless Tobacco: Never Alcohol Use Standard Drinks/Week Comments No 0 (1 standard drink = 0.6 oz pure alcoho l) Sex Assigned at Date Recorded Not on file documented as of this encounter Plan of Treatment Not on filedocumented as of this encounter Visit Diagnoses Diagnosis Monitoring For Therapeutic Drug Therapy Screening Examination Diabetes Mellitus documented in this encounter Additional Health Concerns Assessment Noted Time PHQ-9 Depression Total Score: 3 05/13/2013 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 PCP - General Family Medicine 09/19/[id number] [phone] documented as of this encounter
--- OUTSIDE RECORDS SUMMARY | 2021-12-22 21:53 | XMS_ITS | Encounter Summary ---
:1945 Author Organization [facility] Address [address] [place] [address] Care Team Providers Name Role Phone Suhail Lemus M.D. Primary Care Provider Reason for Visit Reason Comments COVID Nurse Line Encounter Details Date Type Department Care Team Description 03/17/2020 Clinical Communication Division of [facility] Sult[facility] Nurse Line [facility], [place], [place] [address] [place] [phone] Social History Tobacco Use Types Packs/Day Years Used Date Smoking Tobacco: Never Smokeless Tobacco: Never Alcohol Use Standard Drinks/Week Comments No 0 (1 standard drink = 0.6 oz pure alcoho l) Sex Assigned at Date Recorded Not on file documented as of this encounter Miscellaneous Notes Telephone Encounter - Patria Sultana R.NSariah - 03/17/2020 9:02 AM CST COVID-19 Nurse Line Screening ASSESSMENT Combo COVID + Upper Respiratory Infection (URI) Screening Select the most appropriate pathway: : Adult Have you had close contact* with a person who has a LABORATORY CONFIRMED case of COVID-19 in the past 14 days?: No (Continue Screening) In the last 48 hours, have you had a fever* OR symptoms that are unrelated to a preexisting illness?: New diarrhea, New nausea Have you received a COVID-19 vaccine in the last 72 hours? : No vaccine received (Continue Screening) Do you have any of the following urgent symptoms?: No urgent symptoms noted (Continue Screening) Do you have any of the following respiratory syntonical virus (RSV) complications? : No complications noted (Continue Screening) Are all the following symptoms present: temperature of 100.0 degrees Fahrenheit or greater, muscle aches or headache AND a cough?: No all symptoms are not present (End Screening) Symptom Onset Date of symptom onset: 03/11/20 Testing Recommendation Endpoint Is testing recommended? : Recommended to test PLAN Endpoint recommendation: Screening positive, testing indicated, advised to be swabbed for COVID-19 and Influenza, sent to [facility] located at [address] [place] [address] You must call [phone] elizabeth appointment time. Testing hours are Daily 9 am to 5 pm. When you arrive at the testing site: Remain in your vehicle and check-in by phone using the same appointment line number. and Please avoid using public transportation per CDC recommendation. If you do not have personal transportation please self-quarantine until a personal transportation option is available. Care Points: -Wash hands frequently with soap and water for at least 20 seconds -If soap and water are not available, use a hand retail event coordinator -Avoid touching your eyes, nose and mouth. -Clean and disinfect high-touch surfaces routinely. -Wear a mask over your nose and mouth. A cloth face cover is not a substitute for social distancing -Continue to keep about 6 feet between yourself and others. -Avoid public areas and public transportation. -Find new ways to connect with family and friends, get support and share feelings. -Seek emergent care if any of the following occur Trouble breathing Bluish lips or face Persistent pain or pressure in the chest New confusion or inability to rouse. -Notify your regular care provider of any new or worsening symptoms. Symptomatic Carepoints: Separate yourself from others and stay in a specific sick room if able. Avoid sharing personal or household items. Rest. Hydrate. Take Acetaminophen/Ibuprofen as needed to control fever and muscles aches. Use over the counter medications as needed for other symptoms. Education: Patient/caregiver able to teach back Patient agreeable to plan of care: Yes The following references were used: [facility] novel coronavirus (COVID- 19) resources Nursing judgement STERED PUBLIC HEALTH NURSE documented in this encounter Plan of Treatment Not on filedocumented as of this encounter Visit Diagnoses Not on filedocumented in this encounter Additional Health Concerns Assessment Noted Time PHQ-9 Depression Total Score: 3 05/13/2013 2:06 PM REGISTERED PUBLIC HEALTH NURSE documented as of this encounter Care Teams Procedure Tech Relationship Specialty Start Date End Date Suhail Lemus M.D. PCP - General Family Medicine 09/19/[address] [place] [phone] documented as of this encounter
--- OUTSIDE RECORDS SUMMARY | 2021-12-22 21:53 | XMS_ITS | Encounter Summary ---
:1945 Author Organization [facility] Address [address] [place] [address] Care Team Providers Name Role Phone Suhail Lemus M.D. 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 PCP - General Family Medicine 09/19/[id number] [phone] documented as of this encounter
--- OUTSIDE RECORDS SUMMARY | 2021-12-22 21:53 | XMS_ITS | Encounter Summary ---
:1945 Author Organization [facility] Address [address] [place] [address] Care Team Providers Name Role Phone Suhail Lemus M.D. Primary Care Provider Encounter Details Date Type Department Care Team Description 03/17/2020 Admin Visit Department of Family Medicine, [facility] in [place], [place] [address] [place] [phone] Social History Tobacco Use Types Packs/Day Years [...] filedocumented in this encounter Additional Health Concerns Infection Onset Date Last Indicated Resolved Time COVID19 Pending 03/17/2020 03/17/2020 03/18/2020 2:39 PM ROUND UP RING HAND Assessment Noted Time PHQ-9 Depression Total Score: 3 05/13/2013 2:06 PM ROUND UP RING HAND documented as of this encounter Care Teams Package Crimper Relationship Specialty Start Date End Date Suhail Lemus M.D. PCP - General Family Medicine 09/19/[address] [place] [phone] documented as of this encounter
--- OUTSIDE RECORDS SUMMARY | 2021-12-22 21:54 | XMS_ITS | Encounter Summary ---
:1945 Author Organization [facility] Address [address] [place] [address] Care Team Providers Name Role Phone Suhail Lemus M.D. Primary Care Provider Reason for Visit Reason Comments Sinusitis chronic-started years ago, f jovon hurts, under left eye, forehead, drains down throat or she can blow her nose and it will come out-drainage is milky-clear, she had a covid test and it was neg, thinks it may be a bacterial infections-has had one in the past, Ears are also bothering her-itching. Appointment Request (Routine) - Closed Specialty Diagnoses / Procedures Referred By Contact Refer red To Contact Family Medicine Referral ID Status Reason Start Date Expiration Date Visits Requ ested Visits Authorized [id number] Closed 12/29/2019 12/28/2020 1 1 Encounter Details Date Type Department Care Team Description 12/30/2019 Office Visit Department of Family Lise Wang, Sin usitis Acute Medicine, [facility], in [address] [phone] Social History Tobacco Use Types Packs/Day Years Used Date Smoking Tobacco: Never Smokeless Tobacco: Never Alcohol Use Standard Drinks/Week Comments No 0 (1 standard drink = 0.6 oz pure alcoho l) Sex Assigned at Date Recorded Not on file documented as of this encounter Last Filed Vital Signs Vital Sign Reading Time Taken Comments Blood Pressure 179/80 12/30/2019 10:47 did not take bp meds AM CDT this morning Pulse 114 12/30/2019 10:47 AM CDT Temperature 36.4 ??C (97.5 ??F) 12/30/2019 10:47 AM CDT Respiratory Rate 20 12/30/2019 10:47 AM CDT Oxygen Saturation 94% 12/30/2019 10:47 AM CDT Inhaled Oxygen - - Concentration Weight 132 kg (290 lb 9.1 12/30/2019 10:47 oz) AM CDT Height - - Body Mass Index 54.16 11/06/2019 12:57 PM CDT documented in this encounter Patient Instructions Patient InstructionsLise Wang P.A.-C., P.A. - 12/30/2019 11:00 AM CDT Doxycyline twice daily for 10 days May use OTC antihistamine (Zyrtec or Claritin) or similar for the next few days. May use OTC Flonase twice per day to help with nasal congestion and postnasal drip. Cold/cough remedies also available OTC - DayQuil/NyQuil, Mucinex, Codie-[place]wood Cold/Flu, Robitussin DM, cough/throat lozenges, honey. May use OTC analgesics such as Tylenol/ibuprofen for low grade fevers and body aches. Increase fluid intake. Get plenty of rest. Cover your cough. Wash hands frequently. Follow up if symptoms worsen or fail to improve over the next several days. documented in this encounter Progress Notes Lise Wang P.A.-C., P.A. - 12/30/2019 11:00 AM CDT SUBJECTIVE CHIEF COMPLAINT/REASON FOR VISIT Kristen Pederson is a 74 y.o. female who presents for evaluation of Sinusitis (chronic-started years ago, face hurts, under left eye, forehead, drains down throat or she can blow her nose and it will come out-drainage is milky-clear, she had a covid test and it was neg, thinks it may be a bacterial infections-has had one in the past, Ears are also bothering her-itching. ). HISTORY OF PRESENT ILLNESS Kristen is a 74-year-old female who presents today for evaluation of sinusitis. She has recurrent episodes of this every year. She endorses facial pain, green nasal drainage, sore throat and sinus congestion for 3 weeks. She did have a COVID test which was negative. She denies any fevers or chills. She has been using Flonase with no improvement. REVIEW OF SYSTEMS A brief review of systems was negative except for that mentioned in the history of present of illness. CURRENT MEDICATIONS Current Outpatient Medications Medication Sig ??? albuterol (PROVENTIL HFA,VENTOLIN HFA) 90 mcg/actuation inhaler Inhale 2 puffs every 4 (four) hours as needed (wheezing, cough, or shortness of breath). ??? amLODIPine (NORVASC) 10 mg tablet Take 1 tablet (10 mg total) by mouth daily. ??? artificial tears,hypromellose, (ISOPTO TEARS) 0.3 % ophthalmic solution 1 drop 3 (three) times aday as needed. ??? azelastine (ASTELIN) 137 mcg/spray (0.1 %) nasal spray Administer 2 sprays into each nostril 2 (two) times a day. Use in each nostril as directed ??? fluticasone propionate (FLONASE) 50 mcg/actuation nasal spray Administer 2 sprays into each nostril daily. ??? HYDROcodone-acetaminophen (NORCO) 10-325 mg per tablet Take 1-2 tablets by mouth. ??? naproxen sodium 220 mg capsule Take 1 capsule by mouth. ??? nystatin (NYSTOP) 100,000 unit/gram powder Apply 1 strip topically. ??? PROAIR HFA 90 mcg/actuation inhaler INHALE 2 PUFFS EVERY 4 HOURS NEEDED FOR WHEEZING OR SHORTNESS OF BREATH ??? doxycycline hyclate (VIBRAMYCIN) 100 mg capsule Take 1 capsule (100 mg total) by mouth 2 (two) times a day. ??? fluconazole (DIFLUCAN) 150 mg tablet Take 1 tablet (150 mg total) by mouth See Admin Instructions. Take one tab now. Repeat in 7 days if symptoms persist. ??? losartan (COZAAR) 25 mg tablet Take 1 tablet (25 mg total) by mouth daily. (Patient not taking: Reported on 11/06/2019 ) ALLERGIES/CONTRAINDICATIONS No Known Allergies OBJECTIVE PHYSICAL EXAMINATION Vital Signs: BP (!) 179/80 (BP Location: Left arm, Patient Position: Sitting, Cuff Size: Regular) Comment: did not take bp meds this morning Pulse (!) 114 Temp 36.4 ??C (Temporal) Resp 20 Wt 132 kg SpO2 94% BMI 54.16 kg/m?? Body mass index is 54.16 kg/m??. General: This patient is alert and in no acute distress. HEENT: Pupils are PERRLA, conjunctivae clear without hemorrhages or exudates. Auditory canals are normal without erythema or edema, TMs are pearly caba and intact without erythema. Oral cavity is adequately hydrated, posterior pharynx is normal without erythema or drainage present. Maxillary and frontal sinus tenderness to palpation. Neck: Supple without lymphadenopathy. Respiratory: Effort is easy, lung sounds are clear to auscultation. Cardiovascular: S1 and S2 are present, normal rate and rhythm. Psych: Behavior, mood, affect, cognition and insight are all appropriate. DIAGNOSTICS Results for orders placed or performed in visit on 12/25/19 SARS Coronavirus-2 RNA, V Symptomatic Specimen: Nasopharynx; Varies Result Value Ref Range SARS-CoV-2 Specimen Source Swab, Nasopharynx SARS CoV-2 RNA, TMA Undetected Undetected ASSESSMENT / PLAN 1. Sinusitis Acute Patient's symptoms are consistent with acute bacterial sinusitis. Doxycycline sent to local pharmacyfor 10 days. She should also continue with Flonase. Nasal rinse is may also be helpful. Did discuss with her that her blood pressure is elevated in the clinic in that I would like to see her back for hypertension follow-up. She did miss 1 of her blood pressure medications this morning dueto her appointment. Plan was discussed with patient and is in agreement with plan. All questions were answered, side effects of any/all new medications were discussed. Patient left in no acute distress. Ready to learn. No apparent learning barriers were identified. Learning preferences include listening. Explained diagnosis and treatment plan. Patient/Child/Caregiver expressed understanding of the content. Lise Wang P.A.-C., P.A. documented in this encounter Plan of Treatment Not on filedocumented as of this encounter Visit Diagnoses Diagnosis Sinusitis Acute - Primary documented in this encounter Additional Health Concerns Assessment Noted Time PHQ-9 Depression Total Score: 3 05/13/2013 2:06 PM BARREL WATERER documented as of this encounter Care Teams Mechanical Ordnance Assembler Relationship Specialty Start Date End Date Suhail Lemus M.D. PCP - General Family Medicine 09/19/[address] [place] [phone] documented as of this encounter
--- OUTSIDE RECORDS SUMMARY | 2021-12-22 21:54 | XMS_ITS | Encounter Summary ---
:1945 Author Organization [facility] Address [address] [place] [address] Care Team Providers Name Role Phone Suhail Lemus M.D. Primary Care Provider Reason for Visit Reason Comments COVID Nurse Line Cough Encounter Details Date Type Department Care Team Description 12/25/2019 Nurse Triage Department of [facility] Sofiya Michaud COV ID Nurse Line; Medicine, Jesse Zelaya M.S., M.S.N., Cough Clinic, in [place], R.N. [place] [phone] [address] [place] (Work) [place] [address] Social History Tobacco Use Types Packs/Day Years Used Date Smoking Tobacco: Never Smokeless Tobacco: Never Alcohol Use Standard Drinks/Week Comments No 0 (1 standard drink = 0.6 oz pure alcoho l) Sex Assigned at Date Recorded Not on file documented as of this encounter Miscellaneous Notes Telephone Encounter - Sofiya Michaud M.S., M.S.N., R.N. - 12/25/2019 2:35 PM CDT COVID-19 Nurse Line Screening ASSESSMENT COVID 19 Screening Have you had close contact with a person who has a LABORATORY CONFIRMED case of COVID-19 in the past14 days?: No - Continue screening. In the last 48 hours have you had any of the following symptoms?: New cough Do you have any urgent symptoms?: None (Continue Screening) Has the patient had COVID19 diagnosed with a PCR test in the last 90 days? : No (End Screening- Patient Meets Criteria for Testing PLAN Endpoint recommendation: Screening positive, testing indicated, advised to be swabbed for COVID-19, sent to [facility] building located at [address] Testing hours are M-F 10 am to 5 pm and Sat-Sun 9 am to 2 pm. When you arrive stay in your car and someone will direct you. , If it is currently after hours, please report to the testing site when it is next open. and Please avoid using public transportation per CDC recommendation. If you do not have personal transportation please self-quarantine until a personal transportation option is available. Care Points provided: RECOMMENDATIONS TESTING CRITERIA IS MET: Stay home except to get medical care. Education: Patient/caregiver able to teach back Patient agreeable to plan of care: Yes The following references were used: [facility] novel coronavirus (COVID- 19) resources Telephone Encounter - Sofiya Michaud M.S., M.S.N., R.N. - 12/25/2019 2:32 PM CDT Chief Complaint / Reason for Call Patient is a 74 y.o. female calling regarding COVID Nurse Line and Cough. Assessment Concern: Cough Present for: A few days Home cares tried: none Calling to request: appointment The recommended disposition is Home Care. Patient states she was exposed to someone who claimed they had a sinus infection. She now has a cough and is also concerned she may have a sinus infection. She wants to make an appointment and is requesting antibiotic. Warm transfer to scheduling for assistance setting up a phone visit. Reason for Disposition ??? Cough Protocols used: COUGH - ACUTE [id number]- REASSURANCE AND EDUCATION: * Coughing is the way that our lungs remove irritants and mucus. It helps protect our lungs from getting pneumonia. * You can get a dry hacking cough after a chest cold. Sometimes this type of cough can last 1-3 weeks, and be worse at night. * You can also get a cough after being exposed to irritating substances like smoke, strong perfumes,and dust. AVOID TOBACCO SMOKE: Smoking or being exposed to smoke makes coughs much worse. Patient/Caregiver understands and will follow care advice? Yes, able to teach back documented in this encounter Plan of Treatment Not on filedocumented as of this encounter Visit Diagnoses Not on filedocumented in this encounter Additional Health Concerns Assessment Noted Time PHQ-9 Depression Total Score: 3 05/13/2013 2:06 PM OR RN documented as of this encounter Care Teams Food Service Supervisor Relationship Specialty Start Date End Date Suhail Lemus M.D. PCP - General Family Medicine 09/19/[address] [place] [phone] documented as of this encounter
--- OUTSIDE RECORDS SUMMARY | 2021-12-22 21:54 | XMS_ITS | Encounter Summary ---
:1945 Author Organization [facility] Address [address] [place] [address] Care Team Providers Name Role Phone Suhail Lemus M.D. 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 [facility] [place] [facility] Procedures Intravitreal Injection Gonda Appt Order - OD - Right Eye [address] [place] [address] Referral ID Status Reason Start Date Expiration Date Visits V isits Requested Authorized [id number] Canceled 06/12/2019 06/11/2020 5 5 Encounter Details Date Type Department Care Team Description 08/21/2019 Procedure visit Department of Dandy [facility]ig[facility] in Main [place] M.D. Retinal Vein [place], [place] [address] Occlusion With [address] [place], [place] [phone] Social History Tobacco Use Types Packs/Day Years Used Date Smoking Tobacco: Never Smokeless Tobacco: Never Alcohol Use Standard Drinks/Week Comments No 0 (1 standard drink = 0.6 oz pure alcoho l) Sex Assigned at Date Recorded Not on file documented as of this encounter Progress Notes Tee Quigley M.D. 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 CONSENT Informed consent was obtained. PROCEDURE INFORMATION The patient was taken to the exam room. 3 drops of tetracaine instilled into the eye, allowing 1 minutes in between drops. 1 drop of betadine instilled in the right eye. A Betadine skin prep to the lids, lashes, and periocular adnexa performed. Site marking is performed over the correct eye. Mask was placed. Pre- procedural pause performed, identifying the patient by name, date of , and site verified by the perico above the eye. Sterile gloves were placed. A drop of 5% betadine ophthalmic placed in the eye. A sterile lid speculum placed. The globe was marked inferior temporal 3.5 - 4.0 mm posterior to the corneoscleral lumbus, to which 0.05 mL of Avastin was injected. Another drop of 5% betadine ophthalmic was then placed. The lid speculum was removed. Post injection vision was verified to be at least count fingers. POST-PROCEDURE INFORMATION Patient was discharged to home. Recheck again as scheduled. Patient was quite sensitive to injection today. May consider light a cane gel protocol in future. Last seen by Dr. Do May 2019. Dr. eTe Quigley documented in this encounter Plan of Treatment Not on filedocumented as of this encounter Procedures Procedure Name Priority Date/Time Associated Comments Diagnosis INTRAVITREAL Routine 08/21/2019 2:35 PM Tributary Branch Resul ts for this INJECTION, CDT Retinal Vein procedure are i n PHARMACOLOGIC AGENT - Occlusion With the results OD - RIGHT EYE Macular Edema Right sectio n. documented in this encounter Results Intravitreal Injection, Pharmacologic Agent - OD - Right Eye (08/21/2019 2:35 PM CDT) Specimen (Source) Anatomical Location Collection Method / Collectio n Time Received Time / Laterality Volume Narrative Tee Quigley M.D. - 08/21/2019 2:35 PM CDT Pre-Procedure Verification Pre-procedure verification conducted to verify correct patient identity, procedure to be performed and, as applic able, correct side and site. Patient consent obtained. 08/21/2019. Time Out Confirmed correct patient, procedure, si te, and patient consented. Anesthesia Topical anesthesia was used. Pre/Post Pr ocedure prep and meds used were Tetracaine 0.5% 1-10 drops, Povidone 5% 1-10 drops, Povidone 10% swabs x 3 to lids and lashes. Procedure Details Injection: 1.25 mg bevacizumab intravitreal injecti on (AVASTIN) ??[facility]: [id number], Lot: [id number], Expi ration date: 10/26/2019 ??Route: intravitreal, Site: Right Eye Hand motion was present. Count fingers w as correct. Ancillary Staff Ancillary Staff: ?? Grace MURRIETA . Tee Quigley M.D. 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 documented in this encounter Administered Medications Inactive Administered Medications - up to 3 most recent administrations Medication Order MAR Action Action Date Dose Rate Site bevacizumab intraocular Given 08/21/2019 2:35 PM CDT 1.25 mg Right Eye injection 1.25 mg (AVASTIN) 1.25 mg, intravitreal, One-Time Injection, Starting on Sat08/21/19 at 1435, For 1 dose documented in this encounter Additional Health Concerns Assessment Noted Time PHQ-9 Depression Total Score: 3 05/13/2013 2:06 PM WANT AD RECEIVER documented as of this encounter Care Teams Acct Exec Relationship Specialty Start Date End Date Suhail Lemus M.D. PCP - General Family Medicine 09/19/[address] [place] [phone] documented as of this encounter
--- OUTSIDE RECORDS SUMMARY | 2021-12-22 21:54 | XMS_ITS | Encounter Summary ---
:1945 Author Organization [facility] Address [address] [place] [address] Care Team Providers Name Role Phone Suhail Lemus M.D. Primary Care Provider Reason for Visit Reason Onset Date Comments Outpatient COVID-19 Testing 10/28/2019 Encounter Details Date Type Department Care Team Description 10/28/2019 External Outreach Department of [facility] Maureen Fernández [facility] Medicine, [place] T, P.A.-C. Respiratory (Primary Clinic, in [place], [address]) [place], [place] [address] [address] [place], [place] [phone] (Work) [phone] Social History Tobacco Use Types Packs/Day Years Used Date Smoking Tobacco: Never Smokeless Tobacco: Never Alcohol Use Standard Drinks/Week Comments No 0 (1 standard drink = 0.6 oz pure alcoho l) Sex Assigned at Date Recorded Not on file documented as of this encounter Progress Notes Shakira Gonzalez L.P.N. - 10/28/2019 12:42 PM CDT Encounter created for the drive-through COVID-19 testing. documented in this encounter Miscellaneous Notes Result Encounter Note - Avril Reynolds - 10/30/2019 12:34 PM CDT Gave Negative COVID-19 result to patient via phone. documented in this encounter Plan of Treatment Not on filedocumented as of this encounter Procedures Procedure Name Priority Date/Time Associated Diagnosis Comme nts SARS CORONAVIRUS-2, Routine 10/28/2019 1:07 PM Re sults for this PCR CDT procedure are i n the results section. documented in this encounter Results SARS Coronavirus-2, PCR (10/28/2019 1:07 PM CDT) [facility] Method Time Signature SARS Nasopharynx 10/30/2019 DTL Coronavirus-2 2:22 AM CDT Source SARS Undetected Undetected 10/30/2019 DTL Coronavirus-2 2:22 AM CDT , PCR Comment: SARS-CoV-2 RNA absent. This result does not rule out COVID-19 in the patient, as the sensitivity of the test depends o n the timing of the specimen collection and quality of the specimen. Result should be correlated with patient's history and clinical presentat ion. ----ADDITIONAL INFORMATION---- This test was developed and its performa nce characteristics determined by [facility] in a manner co nsistent with CLIA requirements. Independent review by the U.S. Food and Drug Administration is pending. Visit the CDC website: https://www.cdc.gov/coronavirus/ ?? for the most recent guidelines on [place] virus testing. Fact Sheet for Healthcare Providers: (https://www.[employer].Revolut/it-mmfil es/ Provider_Fact_Sheet_for_[facility]_COVI D-19.pdf) Fact Sheet for Patients: (https://www.[employer].com/it-mmfil es/ Patient_Fact_Sheet_for_COVID-19.pdf) Specimen Anatomical Collection Method Collection Time Receive d Time (Source) Location / / Volume Laterality Varies 10/28/2019 1:07 PM 0 7:18 CDT PM CDT Chirag Fernández P.A.-C. LAB MICROBIOLOGY - GENERAL O RDERABLES Performing Organization Address City/State/ZIP Code Phon e Number [facility] - [address] [place], [place] [address] [facility] [place] [address] Laboratories-[facility] [address] documented in this encounter Visit Diagnoses Diagnosis Infection Upper Respiratory - Primary documented in this encounter Additional Health Concerns Infection Onset Date Last Indicated Resolved Time COVID19 Pending 10/28/2019 10/28/2019 10/28/2019 10:14 PM CDT Assessment Noted Time PHQ-9 Depression Total Score: 3 05/13/2013 2:06 PM CAREGIVER SERVICES HOME documented as of this encounter Care Teams Electric Lift Truck Driver Relationship Specialty Start Date End Date Suhail Lemus M.D. PCP - General Family Medicine 09/19/[address] [place] [phone] documented as of this encounter
--- OUTSIDE RECORDS SUMMARY | 2021-12-22 21:54 | XMS_ITS | Encounter Summary ---
:1945 Author Organization [facility] Address [address] [place] [address] Care Team Providers Name Role Phone Suhail Lemus M.D. Primary Care Provider Encounter Details Date Type Department Care Team Description 12/08/2019 Orders Only [facility], Monitoring For M.D. Therapeutic Drug [address] [place] [address] [place] [phone] Social History Tobacco Use Types Packs/Day Years Used Date Smoking Tobacco: Never Smokeless Tobacco: Never Alcohol Use Standard Drinks/Week Comments No 0 (1 standard drink = 0.6 oz pure alcoho l) Sex Assigned at Date Recorded Not on file documented as of this encounter Plan of Treatment Not on filedocumented as of this encounter Visit Diagnoses Diagnosis Monitoring For Therapeutic Drug Therapy documented in this encounter Additional Health Concerns Assessment Noted Time PHQ-9 Depression Total Score: 3 05/13/2013 2:06 PM VITICULTURIST documented as of this encounter Care Teams Wick Tender Relationship Specialty Start Date End Date Suhail Lemus M.D. PCP - General Family Medicine 09/19/[id number] [phone] documented as of this encounter
--- OUTSIDE RECORDS SUMMARY | 2021-12-22 21:54 | XMS_ITS | Encounter Summary ---
:1945 Author Organization [facility] Address [address] [place] [address] Care Team Providers Name Role Phone Suhail Lemus M.D. Primary Care Provider Encounter Details Date Type Department Care Team Description 12/24/2019 Clinical Communication Department of Emilie Fong Ophthalmology in [place], [place] [phone] (Work) [place] [address] Social History Tobacco Use Types Packs/Day Years Used Date Smoking Tobacco: Never Smokeless Tobacco: Never Alcohol Use Standard Drinks/Week Comments No 0 (1 standard drink = 0.6 oz pure alcoho l) Sex Assigned at Date Recorded Not on file documented as of this encounter Miscellaneous Notes Telephone Encounter - Ajit Emilie A - 12/24/2019 2:54 PM CDT 1. Is the patient requesting a COVID test only or other appointments? Other Appointments 2. Have you tested positive for COVID-19 in the last 30 days or do you have a pending COVID-19 test because you had symptoms? no 3. In the last 14 days have you had close contact with a lab confirmed positive case of COVID-19 (close contact is defined as a household case of COVID or being within 6 feet of a COVID-19 patient for more than 5 minutes or having direct contact with infectious secretions, e.g., being coughed on)? no 4. In the past 14 days, are any of the following symptoms new to you and not related to an existing health condition? a. Fever greater than or equal to 37.8 C (100.0 F)? no b. New symptoms (Specifically: headache, cough, shortness of breath, respiratory distress, sore throat, diarrhea, nausea, vomiting, chills and repeated shaking with chills, myalgia's (muscle aches), loss of smell, or change or loss of taste sensation)? no 5. Are you having NEW trouble breathing, worsening breathing, or feeling as though you're going to collapse when you stand or sit up? no 6. Have you tested positive for COVID in the last 90 days? no Screening complete documented in this encounter Plan of Treatment Not on filedocumented as of this encounter Visit Diagnoses Not on filedocumented in this encounter Additional Health Concerns Assessment Noted Time PHQ-9 Depression Total Score: 3 05/13/2013 2:06 PM PREFABRICATED HOUSES TRIMMER documented as of this encounter Care Teams Oil Field Caser Relationship Specialty Start Date End Date Suhail Lemus M.D. PCP - General Family Medicine 09/19/[address] [place] [phone] documented as of this encounter
--- OUTSIDE RECORDS SUMMARY | 2021-12-22 21:54 | XMS_ITS | Encounter Summary ---
:1945 Author Organization [facility] Address [address] [place] [address] Care Team Providers Name Role Phone Suhail Lemus M.D. Primary Care Provider Reason for Visit Reason Comments Continued sinusitis Encounter Details Date Type Department Care Team Description 01/08/2020 Clinical Communication Department of Lise Wang sinusitis Family Medicine, Hilda Blount, [facility], in [address] [phone] Social History Tobacco Use Types Packs/Day Years Used Date Smoking Tobacco: Never Smokeless Tobacco: Never Alcohol Use Standard Drinks/Week Comments No 0 (1 standard drink = 0.6 oz pure alcoho l) Sex Assigned at Date Recorded Not on file documented as of this encounter Miscellaneous Notes Telephone Encounter - Jen Quigley RHumberto - 01/08/2020 9:49 AM CDT SUBJECTIVE CHIEF COMPLAINT / REASON FOR CALL Continued sinusitis Information Discussed Pt contacted and notified of provider response/recommendations. PLAN Disposition/Recommendation: self-care is appropriate at this time, patient encouraged to call back with questions Information/Education: patient/caller able to teach back Caller agreeable to plan of care: yes The following references were used: provider Lise Wang Telephone Encounter - Lise Wang P.A.-C., P.A. - 01/08/2020 9:40 AM CDT Extension of antibiotics is not indicated at this time. Could consider adding in Mucinex. If symptoms worsen after being off of antibiotics for a few days, we may need to try a different antibiotic. Lise Duarte Telephone Encounter - eJn Quigley R.N. - 01/08/2020 9:31 AM CDT LV 12/30/19: 1. Sinusitis Acute Patient's symptoms are consistent with acute bacterial sinusitis. Doxycycline sent to local pharmacyfor 10 days. She should also continue with Flonase. Nasal rinse is may also be helpful. SUBJECTIVE CHIEF COMPLAINT / REASON FOR CALL Continued sinusitis Information Discussed Pt states she was started on Doxycycline, and immediately felt better. Pt states she feels so much better than she did at the time of the visit. Pt states she does still have 1 day left of her antibiotic, however she states her nose is still plugged/draining on one side, and she still notices she's clearing phlegm often. Pt worries that she will take her last dose tomorrow, and as it is not completely resolved, it will return, and wonders if extending for an additional 5 days would help. Pt confirmsshe has been using both of her nasal sprays as directed, and has also been doing saline nasal rinsesas well. PLAN Disposition/Recommendation: notified provider and awaiting recommendations Information/Education: patient/caller able to teach back Caller agreeable to plan of care: yes The following references were used: none Telephone Encounter - Marlin Gastonkyara Blount - 01/08/2020 9:21 AM CDT Reason for Communication: pt would like to extend her prescription for another week Current Can Nursing/Provider leave a detailed message?: yes Did the patient refuse triage through Nurse line? (for symptom based concerns): na Action Needed: pt stated that the med she is on for her chronic sinus infection is working but that it is not completely gone yet, so she is requesting to get another week of this med Name of Medication (if relevant): Doxycycline hyclate 100 mg capsule documented in this encounter Plan of Treatment Not on filedocumented as of this encounter Visit Diagnoses Not on filedocumented in this encounter Additional Health Concerns Assessment Noted Time PHQ-9 Depression Total Score: 3 05/13/2013 2:06 PM OPERATIONAL RISK ANALYST documented as of this encounter Care Teams Professor Of Literature Relationship Specialty Start Date End Date Suhail Lemus M.D. PCP - General Family Medicine 09/19/[address] [place] [phone] documented as of this encounter
--- OUTSIDE RECORDS SUMMARY | 2021-12-22 21:54 | XMS_ITS | Encounter Summary ---
:1945 Author Organization [facility] Address [address] [place] [address] Care Team Providers Name Role Phone Suhail Lemus M.D. 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 [facility] Procedures Intravitreal Injection Gonda Appt Order - OD - Right Eye [address] [place], [place] [address] Referral ID Status Reason Start Date Expiration Date Visits V isits Requested Authorized [id number] Canceled 06/12/2019 06/11/2020 5 5 Encounter Details Date Type Department Care Team Description 02/09/2020 Hospital Encounter Department of Janki Do y Branch Ophthalmology in [place] J, M.D. Retinal Vein [place], [address] Occlusion With [place], [place] Macular Edema Right [address] [phone] [place] KUMAR [phone] (Work) [phone] Social History Tobacco Use Types Packs/Day Years [...] Tributary Branch Resul ts for this INJECTION, INTERNET MARKETING COORDINATOR Retinal Vein procedure are i n PHARMACOLOGIC AGENT - Occlusion With the results OD - RIGHT EYE Macular Edema Right sectio n. INTRAVITREAL Routine 02/09/2020 8:40 AM Tributary Branch INJECTION, INTERNET MARKETING COORDINATOR Retinal Vein PHARMACOLOGIC AGENT - Occlusion With OD - RIGHT EYE - RST Macular Edema Right GONDA SCHEDULING ORDER documented in this encounter Results Intravitreal Injection, Pharmacologic Agent - OD - Right Eye (02/09/2020 8:59 AM INTERNET MARKETING COORDINATOR) Specimen (Source) Anatomical Location Collection Method / Collectio n Time Received Time / Laterality Volume Narrative Tee Quigley M.D. - 02/09/2020 9:09 AM INTERNET MARKETING COORDINATOR Pre-Procedure Verification Pre-procedure verification conducted to verify [...] 1.25 mg bevacizumab intravitreal injecti on (AVASTIN) ??[facility]: 43334-264-65, Lot: [id number], Expi ration date: 03/14/2020 ??Route: intravitreal, Site: Right Eye Balanced salt solution irrigation to inj ected eye after the injection was Done. Hand motion was present. Count fin gerchepe was correct. Ancillary Staff Ancillary Staff: ?? [...] Date Dose Rate Site bevacizumab intraocular Given 02/09/2020 8:59 AM INTERNET MARKETING COORDINATOR 1.25 mg Right Eye injection 1.25 mg (AVASTIN) 1.25 mg, intravitreal, One-Time Injection, Starting on Sat02/09/20 at 0859, For 1 dose documented in this encounter Additional Health Concerns Assessment Noted Time PHQ-9 Depression Total Score: 3 05/13/2013 2:06 PM INTERNET MARKETING COORDINATOR documented as of this encounter Care Teams Blow Down Operator Relationship Specialty Start Date End Date Suhail Lemus M.D. PCP - General Family Medicine 09/19/[address] [place] [phone] documented as of this encounter
--- OUTSIDE RECORDS SUMMARY | 2021-12-22 21:54 | XMS_ITS | Encounter Summary ---
:1945 Author Organization [facility] Address [address] [place] [address] Care Team Providers Name Role Phone Suhail Lemus M.D. 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 PCP - General Family Medicine 09/19/[address] [phone] documented as of this encounter
--- OUTSIDE RECORDS SUMMARY | 2021-12-22 21:54 | XMS_ITS | Encounter Summary ---
:1945 Author Organization [facility] Address [address] [place] [address] Care Team Providers Name Role Phone Suhail Lemus M.D. Primary Care Provider Reason for Referral Outpatient (Routine) - Closed Specialty Diagnoses / Procedures Referred By Contact Refer red To Contact Allergy and Immunology Lindsay Noriega [facility] [place] [facility] M.D. [address] [place] [address] Referral ID Status Reason Start Date Expiration Date Visits Requ ested Visits Authorized [id number] Closed 11/06/2019 11/05/2020 1 1 utpatient (Routine) - Closed Specialty Diagnoses / Procedures Referred By Contact Refer red To Contact Diagnoses Rhinitis Chronic Lindsay Noriega M.D. [facility] [place] [facility] Procedures Basic Skin Test [address] [place] [address] Referral ID Status Reason Start Date Expiration Date Visits Requ ested Visits Authorized [id number] Closed 11/06/2019 11/05/2020 1 1 Reason for Visit Reason Comments Allergies Outpatient (Routine) - Closed Specialty Diagnoses / Procedures Referred By Contact Refer red To Contact Allergy and Immunology Diagnoses Allergy Seasonal Lise Wang [facility] [address] [place] [address] Referral ID Status Reason Start Date Expiration Date Visits V isits Requested Authorized [id number] Closed Specialty 09/16/2019 2020 1 1 Services Required Encounter Details Date Type Department Care Team Description 11/06/2019 Office Visit Department of Allergy Lindsay Noriega Rh initis Chronic (Primary Dx); in Main B[place] M.D. Drip Post Nasal; [place] [address] Dysfunction Eustachian Tube Bilateral; [address] [place] Hypertension Essential Prima ry; [place] [phone] Dyspnea On Exertion; [phone] Morbid Obesity Body Mass Ind ex 50.0-59.9 Adult ([facility]) Social History Tobacco Use Types Packs/Day Years Used Date Smoking Tobacco: Never Smokeless Tobacco: Never Alcohol Use Standard Drinks/Week Comments No 0 (1 standard drink = 0.6 oz pure alcoho l) Sex Assigned at Date Recorded Not on file documented as of this encounter Last Filed Vital Signs Vital Sign Reading Time Taken Comments Blood Pressure 149/67 11/06/2019 12:57 PM CDT Pulse 82 11/06/2019 12:57 PM CDT Temperature 36.7 ??C (98.1 ??F) 11/06/2019 12:57 PM CDT Respiratory Rate - - Oxygen Saturation - - Inhaled Oxygen Concentration - - Weight 130 kg (287 lb 7.7 oz) 11/06/2019 12:57 PM CDT Height 156 cm (5' 1.42) 11/06/2019 12:57 PM CDT Body Mass Index 53.58 11/06/2019 12:57 PM CDT documented in this encounter Patient Instructions Patient InstructionsLindsay Noriega M.D. - 11/06/2019 1:30 PM CDT INSTRUCTIONS FOR FOLLOW-UP CARE - Start using saline sinus rinse daily. - Start Flonase 2 sprays to each nostril daily. - Start Azelastine 2 sprays to each nostril twice daily. Follow up in 1 month. documented in this encounter Procedure Notes Kamilla Xiong R.N. - 11/06/2019 1:30 PM CDT Panel Skin Tests Office Visit from 11/06/2019 in Department of Allergy in [place], [place] Controls Histamine (15 min W/F) 5x5 mm w Diluent (15 min W/F) 0 [place] Basic Panel Juan Antonio, White 0 Birch, Black 0 Black Lizemores 0 Red [place] 0 Elm, Bulgarian 0 Maple, Sugar 0 [place], White 0 [place], White 0 [place], White 0 [place]wood, Bulgarian 0 [place] Blue 0 Romario 0 Dock[place] Mix 0 Belizean Plantain 0 Kochia 0 Reed's Quarter 0 Nettle 0 Pigweed, Rough 0 Ragweed Mix 0 Northern Irish Thistle 0 Acremonium 0 Alternaria Alternata 0 Aspergillus Fumigatus 0 Curvularia Spicifera (Drechslera Spicifera) 0 Epicoccum 0 Fusarium Mix 0 Helminthosporium 0 Cladosporium 0 Grain Smut Mix 0 Mucor Racemosus 0 Penicillium notatum 0 Stemphylium Solani 0 Dust Mite 0 Cat Hair 0 Dog 0 Horse 0 Cattle 0 Cockroach 0 Post testing assessment Patient experienced reaction No Was testing completed Yes documented in this encounter Consult Notes Lindsay Noriega M.D. - 11/06/2019 1:30 PM CDT SUBJECTIVE REFERRING PROVIDER Lise Wang P.A.-C. CHIEF COMPLAINT / REASON FOR VISIT Chief Complaint Patient presents with ??? Allergies HISTORY OF PRESENT ILLNESS Ms. Pederson is a very pleasant 74 y.o. female remote smoker with Hypertension, morbid obesity, untreated sleep apnea, who presents for consultation at the request of Lise Wang P.A.-C. for evaluation of Allergies Ms. Pederson has been having increasing difficulty with nasal congestion, thick nasal drainage, postnasal drip, chronic throat clearing, cough, sneezing, itching of the ears and irritation of the skinaround the eyes over the last 1 year. She is unsure if she has had long-standing difficulty with these symptoms but simply ignore them. Now, she is quite bothered and wondering about whether she has environmental allergies. Symptoms seem to be bothersome during spring, summer, fall months. Overall, she feels better during winter months. She has tried using a variety of oral antihistamines with decongestant with appreciated benefit, though she still has breakthrough symptoms. There was a remote trialof a nasal spray which did not seem to help after a couple of uses and was thus discontinued. Ms. Pederson has additionally had long-standing difficulty with poor exercise tolerance, shortness of breath and exertional wheezing. She recognizes the role of her weight in her respiratory symptoms.She does not carry a diagnosis of asthma. She has not had difficulty with recurrent bronchitis. She is a former smoker with an 80-100 pack year history (smoked 2-3 packs per day x 40 years, quit at age56 years). ENVIRONMENTAL HISTORY: Home Type: House Heating Type: Wood stove Air Conditioner Type: Window a/c. Air Treatment: None Carpeting: Hardwood floors with area rugs. Pets: + 1 cat, 2 dogs, all with run of the home and sleep on patient's bed.. Bedding: No feathers. Dust mite cover on mattress in place. Basement: None. Smoke Exposure: Friend smoke. 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 Granddaughter has Pseudomonas colonization. MEDICAL HISTORY Past Medical History: Diagnosis Date ??? Cataract ??? Degeneration Macular ??? Hepatitis Hepatitis B ??? Hypertension NOS ??? Membrane Macula Epiretinal Left ??? 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 albuterol (PROVENTIL HFA,VENTOLIN HFA) 90 mcg/actuation inhaler Inhale 2 puffs 4 (four) times a day as needed. ??? albuterol (PROVENTIL HFA,VENTOLIN HFA) 90 mcg/actuation inhaler Inhale 2 puffs every 4 (four) hours as needed (wheezing, cough, or shortness of breath). ??? amLODIPine (NORVASC) 10 mg tablet Take 1 tablet (10 mg total) by mouth daily. ??? artificial tears,hypromellose, (ISOPTO TEARS) 0.3 % ophthalmic solution 1 drop 3 (three) times aday as needed. ??? naproxen sodium 220 mg capsule Take 1 capsule by mouth. ??? nystatin (NYSTOP) 100,000 unit/gram powder Apply 1 strip topically. ??? PROAIR HFA 90 mcg/actuation inhaler INHALE 2 PUFFS EVERY 4 HOURS NEEDED FOR WHEEZING OR SHORTNESS OF BREATH ??? HYDROcodone-acetaminophen (NORCO) 10-325 mg per tablet Take 1-2 tablets by mouth. ??? losartan (COZAAR) 25 mg tablet Take 1 tablet (25 mg total) by mouth daily. (Patient not taking: Reported on 11/06/2019 ) ??? methylPREDNISolone (MEDROL DOSEPACK) 4 mg tablet Take as directed on package. (Patient not taking: Reported on 06/26/2019 ) ALLERGIES/CONTRAINDICATIONS No Known Allergies SOCIAL HISTORY Social History Tobacco Use ??? Smoking status: Never Smoker ??? Smokeless tobacco: Never Used Substance Use Topics ??? Alcohol use: No FAMILY HISTORY Family History Problem Relation Age of Onset ??? Glaucoma Sister ??? Blindness Neg Hx ??? Amblyopia Neg Hx ??? Cataracts Neg Hx ??? Macular degeneration Neg Hx ??? Retinal degeneration Neg Hx ??? Retinal detachment Neg Hx ??? Diabetes Neg Hx ??? Hypertension Neg Hx REVIEW OF SYSTEMS Constitutional Symptoms: Denies fever, chills, unintentional weight loss, + fatigue. Eyes: + itchy, watery eyes. Ears: + itchy ears. Nose: + nasal congestion, rhinorrhea. Sense of smell is partially diminished, sense of taste is intact. Throat: Denies sore throat. + itchy throat and postnasal drainage. Cardiovascular: + chest pain, dyspnea on exertion. Respiratory: + shortness of breath, cough, patient appreciated wheezing. GI: Denies heartburn. Heme/Immuno: Denies frequent infection. SKIN: Denies any rash, pruritus. OBJECTIVE BP 149/67 Pulse 82 Temp 36.7 ??C Ht 156 cm Wt 130 kg BMI 53.58 kg/m?? PHYSICAL EXAMINATION General: Alert, in no apparent distress. Frequent throat clearing during our visit. Head: Normocephalic, atraumatic. Eyes: No lid edema, no conjunctival injection. Ears: Canals clear, tympanic membranes intact without fluid bilaterally. Nose: Septum midline, moist mucosa, white mucus stranding. discharge, no turbinate hypertrophy, no polyps appreciated. Throat: Moist mucosa, no lesions, clear postnasal drainage, no tonsillar enlargement, no exudates. Neck: Supple, no adenopathy. Cardiovascular: Regular rate, rhythm. Respiratory: Clear to auscultation bilaterally, no wheezes, rales, rhonchi. Skin: Negative dermatographia. Psychiatric: Mood, affect, and mentation within normal limits. Hematology/Lymphatics/Immunologic: No cervical or supraclavicular lymphadenopathy. DIAGNOSTICS Skin Testing (11/06/19): Skin prick testing performed to environmental allergens was negative with appropriate positive histamine control response. ASSESSMENT / PLAN #1 Rhinitis Chronic #2 Drip Post Nasal #3 Dysfunction Eustachian Tube Bilateral Ms. Pederson was reassured that she does not demonstrate any evidence of environmental sensitivities contributing to her rhinitis symptoms. Suspect chronic throat clearing and ear itching to be related to nasal drainage and eustachian tube dysfunction. Recommend initiation of consistent nasal regimen with plan to re-evaluate treatment response in 1 month. - Start using saline sinus rinse daily. Advised to use distilled water or boiled water that has cooled. - Start Flonase 2 sprays to each nostril daily. - Start Azelastine 2 sprays to each nostril twice daily. - Educated regarding side effect profile of each nasal medication and optimal technique in nasal spray use. #4 Hypertension Essential Primary Recommend discontinuation of use of oral decongestant in the setting of known hypertension. #5 Dyspnea On Exertion #6 Morbid Obesity Body Mass Index 50.0-59.9 Adult ([facility]) Ms. Pederson endorses symptoms of shortness of breath, poor exercise tolerance and episodic wheezing, though her history is not specifically suggestive of asthma or COPD. It is noted that she has a fairly significant smoking history but quit smoking nearly 20 years ago and has not had any difficulty with bronchitis type symptoms. Ms. Pederson is aware of indication to work on modest weight loss. Ifshe has recurrence of wheezing, we can pursue further evaluation. All of the above was discussed and all questions were answered. Follow-up in 1 month. Other orders - fluticasone propionate (FLONASE) 50 mcg/actuation nasal spray; Administer 2 sprays into each nostril daily., Starting Sat11/06/2019, Normal - azelastine (ASTELIN) 137 mcg/spray (0.1 %) nasal spray; Administer 2 sprays into each nostril 2 (two) times a day. Use in each nostril as directed, Starting Sat11/06/2019, Normal - Allergy and Immunology office visit (clinic); Future; Expected date: 12/07/2019 (Semi Urg) documented in this encounter Plan of Treatment Scheduled Orders Name Type Priority Associated Diagnoses Order S chedule Basic Skin Test Procedures Routine Rhinitis Chronic Expected : 11/06/2019, Expires: 2022 Scheduled Referrals Name Type Priority Associated Order Schedule Diagnoses Allergy and Outpatient Referral Routine Expected : Immunology office 12/07/2019 visit (clinic) (Approximate) , Expires: 11/05/2022 documented as of this encounter Visit Diagnoses Diagnosis Rhinitis Chronic - Primary Drip Post Nasal Dysfunction Eustachian Tube Bilateral Hypertension Essential Primary Dyspnea On Exertion Morbid Obesity Body Mass Index 50.0-59.9 Adult ([facility]) documented in this encounter Additional Health Concerns Assessment Noted Time PHQ-9 Depression Total Score: 3 05/13/2013 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 PCP - General Family Medicine 09/19/[address] [place] [phone] documented as of this encounter
--- OUTSIDE RECORDS SUMMARY | 2021-12-22 21:54 | XMS_ITS | Encounter Summary ---
:1945 Author Organization [facility] Address [address] [place] [address] Care Team Providers Name Role Phone Suhail Lemus M.D. 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 [address] [place] [address] Referral ID Status Reason Start Date Expiration Date Visits Requ ested Visits Authorized [id number] Closed 10/09/2019 10/08/2020 1 1 Encounter Details Date Type Department Care Team Description 10/09/2019 Procedure visit Department of Dandy Quigley Ophthal[facility] in [place] M.[place]. [place] [address] Occlusion With [address] [place], [place] [address] (Primary Dx) [id number] Social History Tobacco Use Types Packs/Day Years Used Date Smoking Tobacco: Never Smokeless Tobacco: Never Alcohol Use Standard Drinks/Week Comments No 0 (1 standard drink = 0.6 oz pure alcoho l) Sex Assigned at Date Recorded Not on file documented as of this encounter Progress Notes Quigley, Tee P, M.D. - 10/09/2019 12:30 PM CDT Kristen Pederson was seen today for No chief complaint on file. #1 Tributary Branch Retinal Vein Occlusion With [...] to home. Recheck again as scheduled. Patient did very well this time without pain with injection. Did offer lidocaine gel protocol. Patient declined at this time. Irrigated out after procedure well with ointment also. Dr. Tee Quigley documented in this encounter Plan of Treatment Not on filedocumented as of this encounter Procedures Procedure Name Priority Date/Time Associated Comments Diagnosis INTRAVITREAL Routine 10/09/2019 1:05 PM Tributary Branch Resul ts for this INJECTION, CDT Retinal Vein procedure are i n PHARMACOLOGIC AGENT - Occlusion With the results OD - RIGHT EYE Macular Edema Right sectio n. documented in this encounter Results Intravitreal Injection, Pharmacologic Agent - OD - Right Eye (10/09/2019 1:05 PM CDT) Specimen (Source) Anatomical Location Collection Method / Collectio n Time Received Time / Laterality Volume Narrative Tee Quigley M.D. - 10/09/2019 1:05 PM CDT Pre-Procedure Verification Pre-procedure verification conducted to verify correct patient identity, procedure to be performed and, as applic able, correct side and site. Patient consent obtained. Time Out Confirmed correct patient, procedure, si te, and patient consented. Anesthesia Topical anesthesia was used. Pre/Post Pr ocedure prep and meds used were Povidone 5% 1-10 drops, Povidone 10% swa bs x 3 to lids and lashes, Tetracaine 0.5% 1-10 drops. Procedure Details Injection: 1.25 mg bevacizumab intravitreal injecti on (AVASTIN) ??[facility]: 30555-172-57, Lot: [id number], Expi ration date: 11/25/2019 ??Route: intravitreal, Site: Right Eye Hand motion was present. Count fingers w as correct. Tee Quigley M.D. 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 - Primary documented in this encounter Administered Medications Inactive Administered Medications - up to 3 most recent administrations Medication Order MAR Action Action Date Dose Rate Site bevacizumab intraocular Given 10/09/2019 1:05 PM CDT 1.25 mg Right Eye injection 1.25 mg (AVASTIN) 1.25 mg, intravitreal, One-Time Injection, Starting on Sat10/09/19 at 1305, For 1 dose documented in this encounter Additional Health Concerns Assessment Noted Time PHQ-9 Depression Total Score: 3 05/13/2013 2:06 PM CONCRETE RUBBER documented as of this encounter Care Teams Revenue Stamp Clerk Relationship Specialty Start Date End Date Suhail Lemus M.D. PCP - General Family Medicine 09/19/[address] [place] [phone] documented as of this encounter
--- OUTSIDE RECORDS SUMMARY | 2021-12-22 21:54 | XMS_ITS | Encounter Summary ---
:1945 Author Organization [facility] Address [address] [place] [address] Care Team Providers Name Role Phone Suhail Lemus M.D. Primary Care Provider Reason for Visit Appointment Request (Routine) - Closed Specialty Diagnoses / Procedures Referred By Contact Refer red To Contact Express or Urgent Care Referral ID Status Reason Start Date Expiration Date Visits Requ ested Visits Authorized [id number] Closed 12/25/2019 12/24/2020 1 1 Encounter Details Date Type Department Care Team Description 12/25/2019 Virtual Visit [facility] Express Delano Chicas (Primary Dx); Care at [facility] CANELO Hyde, C.N.PSariah, Congestion Sinus; [address] WHITE M.S.N. Runny Nose; [place], [place] [address] Pain Ear Left; [id number] [place], [place] Drip Post Nasal [phone] [phone] Social History Tobacco Use Types Packs/Day Years Used Date Smoking Tobacco: Never Smokeless Tobacco: Never Alcohol Use Standard Drinks/Week Comments No 0 (1 standard drink = 0.6 oz pure alcoho l) Sex Assigned at Date Recorded Not on file documented as of this encounter Progress Notes Delano Chicas APRN, C.N.P., M.S.N. - 12/25/2019 3:20 PM CDT SUBJECTIVE CHIEF COMPLAINT / PURPOSE OF VISIT Patient presents for sinus symptoms, cough, postnasal drainage, runny nose, and left ear discomfort. Consult conducted via real-time audio/video technology by Bryce Chicas APRN, C.N.P., M.S.N. in [facility] to the patient's home. COVID-19 test is pending at this time. HISTORY OF PRESENT ILLNESS Phone visit arranged today to discuss sinus symptoms, cough, postnasal drainage, runny nose, and left ear discomfort for four days. This visit was arranged in the midst of the COVID-19 pandemic. I spoke with patient by telephone today for four days of sinus symptoms, cough, postnasal drainage, runny nose, and left ear discomfort. She does state over the last year she has had this same condition on and off. Over the last four days she has had clear, thick, discharge that she has been blowing out her nose. She denies fever, chills, sore throat, eye pain, rash, sinus surgeries, or other signs of systemic infection today. She was seen in clinic on 11/06/2019 diagnosed with chronic rhinitis and given nasal steroids for treatment. She has not been using her nasal sprays but did try Ester D onetime last night. She does have sick contacts with other family members, her sister has a current sinu s infection and she believe she has one today. She also did travel [facility], she is also concerned for COVID-19, testing is pending at this time. She voices no other concerns today. ASSESSMENT / PLAN We reviewed problems below. Chronic problems were not updated in the problem list, including overview and assessment/plan. #1 Cough #2 Congestion Sinus #3 Runny Nose #4 Pain Ear Left #5 Drip Post Nasal Other orders - [facility] Visit; Future; Expected date: 12/25/2019 (Semi Urg) I personally spent a total of 20 minutes in cwn-eezf-cp-face time performing a review of the record and/or discussion with the patient/caregiver as described above. I spoke with the patient by telephone today for four days of sinus symptoms, cough, postnasal drainage, runny nose, and left ear discomfort. She does have a history of chronic rhinitis, she was diagnosed on 11/06/2019 in clinic by . She was prescribed two nasal sprays including Flonase and Azelastine, she states these medications do not work for her condition and she has not used them recently. She has tried Ester-D one time last night with no improvement in symptoms. She is requesting antibiotic's today for a possible bacterial process. I did speak in detail with her today, with her symptoms, no fever, no eye pain, and no signs of systemic infection. I do not believe at this point with four days of symptoms that she has a bacterial process or bacterial sinusitis. She did become upset when I would not prescribe an antibiotic for her today, she stated she did not want to speak to a nurse practitioner anymore and only wanted to speakto a doctor. I did state that I was trying to help her the best I could with her symptoms and condition today. I did place an order for her to be seen at one of our respiratory clinic's due to her COVID-19 test pending at this time. I did try and go over supportive care in detail with the patient including using her nasal sprays, pushing fluids, warm showers, and additional sinus treatment options. She did not want to speak to me any longer and wanted to speak to a doctor, I did wish her the very best and that I would place an order for her to be seen in clinic by another provider. All questions answered to the best of my ability. Follow up in one week if not improving, sooner if symptoms are worsening. Ready to learn, no apparent learning barriers were identified; learning preferences include listening. Explained diagnosis and treatment plan; patient/child/caregiver expressed understanding of the content. documented in this encounter Plan of Treatment Not on filedocumented as of this encounter Visit Diagnoses Diagnosis Cough Unspecified Type - Primary Congestion Sinus Runny Nose Pain Ear Left Drip Post Nasal documented in this encounter Additional Health Concerns Infection Onset Date Last Indicated Resolved Time COVID19 Pending 12/25/2019 12/25/2019 12/26/2019 2:16 PM CDT Assessment Noted Time PHQ-9 Depression Total Score: 3 05/13/2013 2:06 PM TUGBOAT DISPATCHER documented as of this encounter Care Teams Chief Technician X Ray Relationship Specialty Start Date End Date Suhail Lemus M.D. PCP - General Family Medicine 09/19/[id number] [phone] documented as of this encounter
--- OUTSIDE RECORDS SUMMARY | 2021-12-22 21:54 | XMS_ITS | Encounter Summary ---
:1945 Author Organization [facility] Address [address] [place] [address] Care Team Providers Name Role Phone Suhail Lemus M.D. Primary Care Provider Encounter Details Date Type Department Care Team Description 12/28/2019 Clinical Communication Department of Emilie Fong Ophthalmology in [place], [place] [phone] (Work) [place] [address] Social History Tobacco Use Types Packs/Day Years [...] Depression Total Score: 3 05/13/2013 2:06 PM GEOSPATIAL PROGRAM MANAGEMENT OFFICER documented as of this encounter Care Teams Comic Book Designer Relationship Specialty Start Date End Date Suhail Lemus M.D. PCP - General Family Medicine 09/19/[address] [place] [phone] documented as of this encounter
--- OUTSIDE RECORDS SUMMARY | 2021-12-22 21:54 | XMS_ITS | Encounter Summary ---
:1945 Author Organization [facility] Address [address] [place] [address] Care Team Providers Name Role Phone Suhail Lemus M.D. Primary Care Provider Reason for Visit Reason Comments Facial Pain Encounter Details Date Type Department Care Team Description 12/29/2019 Clinical Communication Department of Damir Hwang, Facial Pain Medicine, Roni Szymanski M.D. Clinic, in [address] [phone] Social History Tobacco Use Types Packs/Day Years Used Date Smoking Tobacco: Never Smokeless Tobacco: Never Alcohol Use Standard Drinks/Week Comments No 0 (1 standard drink = 0.6 oz pure alcoho l) Sex Assigned at Date Recorded Not on file documented as of this encounter Miscellaneous Notes Telephone Encounter - Yanique Duong R.N. - 12/29/2019 2:38 PM CDT SUBJECTIVE CHIEF COMPLAINT / REASON FOR CALL Facial Pain Information Discussed Called pt who states she gets chronic sinus pain every fall. Noted sinusitis dx in March 2018 also. Denies diarrhea, SOB, fever, cough and even nasal drainage with this sinus infection. Reports sinuspain x 3+ weeks. She was told to get a COVID test to be seen in clinic which she did- negative COVIDtest 12/25/19 which is documented in chart. PLAN Disposition/Recommendation: patient transferred to the appointment desk Information/Education: patient/caller able to teach back Caller agreeable to plan of care: yes The following references were used: nursing clinical judgement Telephone Encounter - Angela Culp - 12/29/2019 1:34 PM CDT Reason for Communication: Pt has had sinus pain for a couple weeks and would like to be seen. Pt hada negative covid test on 12/24. Can Pt be seen in clinic or get an Rx. Current Can Nursing/Provider leave a detailed message?: no Did the patient refuse triage through Nurse line? (for symptom based concerns): na Action Needed: Please call Name of Medication (if relevant): documented in this encounter Plan of Treatment Not on filedocumented as of this encounter Visit Diagnoses Not on filedocumented in this encounter Additional Health Concerns Assessment Noted Time PHQ-9 Depression Total Score: 3 05/13/2013 2:06 PM CLIENT ENGAGEMENT SPECIALIST documented as of this encounter Care Teams Extruder Operator Horizontal Relationship Specialty Start Date End Date Suhail Lemus M.D. PCP - General Family Medicine 09/19/[address] [place] [phone] documented as of this encounter
--- OUTSIDE RECORDS SUMMARY | 2021-12-22 21:54 | XMS_ITS | Encounter Summary ---
:1945 Author Organization [facility] Address [address] [place] [address] Care Team Providers Name Role Phone Suhail Lemus M.D. Primary Care Provider Reason for Referral Outpatient (Routine) - Closed Specialty Diagnoses / Procedures Referred By Contact Refer red To Contact Allergy and Immunology Diagnoses Allergy Seasonal Lise Wang [facility] [address] [place] [address] Referral ID Status Reason Start Date Expiration Date Visits V isits Requested Authorized [id number] Closed Specialty 09/16/2019 2020 1 1 Services Required Reason for Visit Reason Comments Blood Pressure Check Handicap renewal, exp in Feb 2020 Allergy Testing Outpatient (Routine) - Closed Specialty Diagnoses / Procedures Referred By Contact Refer red To Contact Family Medicine Diagnoses Hypertension Essential Primary Lise Wang [facility] [address] [place] [address] Referral ID Status Reason Start Date Expiration Date Visits Requ ested Visits Authorized [id number] Closed 06/04/2019 06/03/2020 1 1 Encounter Details Date Type Department Care Team Description 09/16/2019 Office Visit Department of [facility] Lise Wang, Hyp ertension Essential Primary (Primary Dx); Medicine, [place] [facility] [place] a; Clinic, in [place] [facility]; [place], [place] Morbid Obesity (HCC); [address] [place] [address] [place] [phone] Social History Tobacco Use Types Packs/Day Years Used Date Smoking Tobacco: Never Smokeless Tobacco: Never Alcohol Use Standard Drinks/Week Comments No 0 (1 standard drink = 0.6 oz pure alcoho l) Sex Assigned at Date Recorded Not on file documented as of this encounter Last Filed Vital Signs Vital Sign Reading Time Taken Comments Blood Pressure 151/66 09/16/2019 11:03 AM CDT Pulse 81 09/16/2019 11:03 AM CDT Temperature 37.1 ??C (98.8 ??F) 09/16/2019 11:03 AM CDT Respiratory Rate 18 09/16/2019 11:03 AM CDT Oxygen Saturation 97% 09/16/2019 11:03 AM CDT Inhaled Oxygen Concentration - - Weight 130 kg (286 lb 9.6 oz) 09/16/2019 11:03 AM CDT Height - - Body Mass Index 53.42 06/04/2019 8:32 AM CDT documented in this encounter Patient Instructions Patient InstructionsLise Wang P.A.-C. - 09/16/2019 11:30 AM CDT Continue amlodipine 10mg daily Start losartan 25mg daily - can take them at the same time Follow-up in 3 months for blood pressure check and blood work Schedule jacquard plate maker Bring in handicap form documented in this encounter Progress Notes Lise Wang P.A.-C. - 09/16/2019 11:30 AM CDT SUBJECTIVE CHIEF COMPLAINT/REASON FOR VISIT Kristen Pederson is a 74 y.o. female who presents for evaluation of Blood Pressure Check; Handicap (renewal, exp in Feb 2020); and Allergy Testing. HISTORY OF PRESENT ILLNESS Kristen is a 74-year-old female presents for blood pressure follow-up today. She was last seen approximately 3 months ago and had not been taking her amlodipine on a consistent basis and still noted to have significant blood pressure elevation in clinic. She does have history of a retinal vein occlusion. Since our last visit, she has been taking her amlodipine on a more regular basis. She states she takes it almost daily but does occasionally miss it. She has been checking her blood pressure at home with the systolic range in the 160s. Today she is 169/69 on initial check-in on repeat is 151/66. She states she does not like taking medications, especially heart related medications, as her mother from a heart surgery in her related condition. She did talk at length about how she does not want to take any additional medication. We did review that her blood pressure was still not at goal despite her more consistent amlodipine use. I do think it would be ideal if we can get her on 1 additional blood pressure medicine. She was amenable to this, as long as she does not have side effects. If she does develop side effects, I have asked that she call our office for further recommendations. In addition to her high blood pressure, patient states that she is frustrated with her obesity. She states that she does not like walking and is frustrated that she cannot join a gym secondary to COVID-19. She states she knows which he needs to do to lose weight, but feels restricted. She states that she is also short of breath with exercise, and also describes lower extremity swelling and orthopnea symptoms. She states she used 12 pillows to sleep at night to prop herself up. Lastly, the patient states she was outside 4 days ago and was bitten by multiple no-see-ums. She developed subsequent eyelid swelling and facial itching. She did take Benadryl for this with improvement. She states she did have very mild shortness of breath but this resolved with the Benadryl. She also wonders because she has occasional shortness of breath throughout the day if she has a food allergy. She is wondering if she has developed a nut allergy. On the day that she was bitten by the gnats, she also was eating peanuts. She states she has eliminated these from her diet and had some improvement with her allergy symptoms. She does have seasonal allergies for which she takes occasional Flonaseand dlsy-hoq-kzjfgnl Claritin. REVIEW OF SYSTEMS A brief review of [...] 3 (three) times aday as needed. ??? HYDROcodone-acetaminophen (NORCO) 10-325 mg per tablet Take 1-2 tablets by mouth. ??? nystatin (NYSTOP) 100,000 unit/gram powder Apply 1 strip topically. ??? PROAIR HFA 90 mcg/actuation inhaler INHALE 2 PUFFS EVERY 4 HOURS NEEDED FOR WHEEZING OR SHORTNESS OF BREATH ??? losartan (COZAAR) 25 mg tablet Take 1 tablet (25 mg total) by mouth daily. ??? methylPREDNISolone (MEDROL DOSEPACK) 4 mg tablet Take as directed on package. (Patient not taking: Reported on 06/26/2019 ) ??? naproxen sodium 220 mg capsule Take 1 capsule by mouth. ALLERGIES/CONTRAINDICATIONS No Known Allergies OBJECTIVE PHYSICAL EXAMINATION Vital Signs: BP 151/66 (BP Location: Left arm, Patient Position: Sitting, Cuff Size: Regular) Pulse 81 Temp 37.1 ??C (Temporal) Resp 18 Wt 130 kg SpO2 97% BMI 53.42 kg/m?? Body mass index is 53.42 kg/m??. General: This patient is alert and in no acute distress. HEENT: Pupils are PERRLA, conjunctivae clear without hemorrhages or exudates. Respiratory: Effort is easy, lung sounds are clear to auscultation. Cardiovascular: S1 and S2 are present, normal rate and rhythm. Abdomen: Obese. Soft, nontender, bowel sounds present. Musculoskeletal: Grossly intact, no deformities are noted. Extremities: Bilateral 2+ lower extremity edema Skin: Normal color, temperature and moisture, no rashes or lesions are noted. Neuro: CN II-XII grossly intact. Psych: Behavior, mood, affect, cognition and insight are all appropriate. DIAGNOSTICS Results for orders placed or performed in visit on 09/30/17 HCV Ab Scrn w/Reflex to HCV PCR, Serum Specimen: Blood, Venous Result Value Ref Range HCV Ab Screen, S Nonreactive Nonreactive Cologuard - Non RST Result Value Ref Range Result Negative Not Applicable Comprehensive Metabolic Panel Result Value Ref Range Potassium, S 4.2 3.6 - 5.2 mmol/L Sodium, S 142 135 - 145 mmol/L Chloride, S 103 98 - 107 mmol/L Bicarbonate, S 29 22 - 29 mmol/L Anion Gap 10 7 - 15 Bld Urea Nitrog(BUN), S 14 6 - 21 mg/dL Creatinine, S 0.88 0.59 - 1.04 mg/dL eGFR-Non Black 66 >=60 mL/min/BSA eGFR-Black 76 >=60 mL/min/BSA Calcium, Total, S 9.4 8.8 - 10.2 mg/dL Glucose, S 124 70 - 140 mg/dL Protein, Total, S 7.0 6.3 - 7.9 g/dL Albumin, S 3.9 3.5 - 5.0 g/dL Aspartate Aminotransferase (AST), S 34 8 - 43 U/L Alkaline Phosphatase, S 123 55 - 142 U/L Alanine Aminotransferase (ALT), S 33 7 - 45 U/L Bilirubin, Total, S 0.3 <=1.2 mg/dL ASSESSMENT / PLAN 1. Hypertension Essential Primary 2. Edema 3. Orthopnea Blood pressure is slightly improved today but still not at goal. We will add on the losartan 25 mg daily to her amlodipine 10 mg daily. She does have bilateral lower extremity edema which could be related to the amlodipine or potentially even heart failure as she is also having symptoms of orthopnea and dyspnea on exertion. Did recommend that we obtain an ultrasound to look at her heart further. She states she feels her heart is healthy and does not think this is necessary, but she will consider it.I would like to see her back in 3 months for additional blood pressure follow-up. If she has any side effects from the new medication I would like to hear from her before then. Review DASH diet recommen dations. 4. Morbid Obesity (HCC) Offered the suggestion to the patient that she begin walking as gyms are closed due to COVID-19. Discussed with her that even walking 5 minutes a few times a day may be helpful for her overall health. 5. Allergy Seasonal Patient requesting allergy consult for further evaluation of her seasonal allergies and possible notallergy. Reviewed with her that is probably not likely that she has a nut allergies as she has not had any reaction to this throughout most of her life. I do believe her shortness of breath is likely more related to underlying seasonal allergies and or heart failure which we need to work up further. - Allergy and Immunology - General consult (clinic); Future Patient was instructed to follow up in [...] expressed understanding of the content. Lise Wang P.A.-C. documented in this encounter Plan of Treatment Scheduled Referrals Name Type Priority Associated Order Schedule Diagnoses Allergy and Outpatient Referral Routine Allergy Seasonal Expe cted: Immunology - General 020 consult (clinic) (Approximat e), Expires: 2022 documented as of this encounter Visit Diagnoses Diagnosis Hypertension Essential Primary - Primary Edema Orthopnea Morbid Obesity (HCC) Allergy Seasonal documented in this encounter Additional Health Concerns Assessment Noted Time PHQ-9 Depression Total Score: 3 05/13/2013 2:06 PM STOCK MOVER documented as of this encounter Care Teams Parks And Recreation Worker Relationship Specialty Start Date End Date Suhail Lemus M.D. PCP - General Family Medicine 09/19/[address] [place] [phone] documented as of this encounter
--- OUTSIDE RECORDS SUMMARY | 2021-12-22 21:54 | XMS_ITS | Encounter Summary ---
:1945 Author Organization [facility] Address [address] [place] [address] Care Team Providers Name Role Phone Suhail Lemus M.D. Primary Care Provider Encounter Details Date Type Department Care Team Description 01/05/2020 Clinical Communication Department of Emilie Fong Ophthalmology in [place], [place] [phone] (Work) [place] [address] Social History Tobacco Use Types Packs/Day Years [...] Depression Total Score: 3 05/13/2013 2:06 PM PARTS COUNTER CLERK documented as of this encounter Care Teams Safety Glass Installer Relationship Specialty Start Date End Date Suhail Lemus M.D. PCP - General Family Medicine 09/19/[address] [place] [phone] documented as of this encounter
--- OUTSIDE RECORDS SUMMARY | 2021-12-22 21:54 | XMS_ITS | Encounter Summary ---
:1945 Author Organization [facility] Address [address] [place] [address] Care Team Providers Name Role Phone Suhail Lemus M.D. Primary Care Provider Reason for Visit Reason Comments Results Encounter Details Date Type Department Care Team Description 10/30/2019 Clinical Communication Department of Damir Hwang, [facility] Medicine, Roni Szymanski M[facility] Clinic, in [address] [phone] Social History Tobacco Use Types Packs/Day Years Used Date Smoking Tobacco: Never Smokeless Tobacco: Never Alcohol Use Standard Drinks/Week Comments No 0 (1 standard drink = 0.6 oz pure alcoho l) Sex Assigned at Date Recorded Not on file documented as of this encounter Miscellaneous Notes Telephone Encounter - Avril Reynolds - 10/30/2019 12:34 PM CDT Gave Negative COVID-19 result to patient via phone. documented in this encounter Plan of Treatment Not on filedocumented as of this encounter Visit Diagnoses Not on filedocumented in this encounter Additional Health Concerns Infection Onset Date Last Indicated Resolved Time COVID19 Pending 10/28/2019 10/28/2019 10/30/2019 2:23 AM CDT Assessment Noted Time PHQ-9 Depression Total Score: 3 05/13/2013 2:06 PM SYNTHETIC GEM PRESS OPERATOR documented as of this encounter Care Teams Chlorine Operator Relationship Specialty Start Date End Date Suhail Lemus M.D. PCP - General Family Medicine 09/19/[address] [place] [phone] documented as of this encounter
--- OUTSIDE RECORDS SUMMARY | 2021-12-22 21:54 | XMS_ITS | Encounter Summary ---
:1945 Author Organization [facility] Address [address] [place] [address] Care Team Providers Name Role Phone Suhail Lemus M.D. Primary Care Provider Reason for Visit Reason Onset Date Comments Outpatient COVID-19 Testing 12/25/2019 Encounter Details Date Type Department Care Team Description 12/25/2019 External Outreach Department of [facility] Suhail Lemus M.D. [address] [phone] Infection Upper Medicine, [place] Chirag Fernández, P.A.-[address] [phone] Respiratory (Primary Clinic, in [place], ) [address] [phone] Social History Tobacco Use Types Packs/Day Years Used Date Smoking Tobacco: Never Smokeless Tobacco: Never Alcohol Use Standard Drinks/Week Comments No 0 (1 standard drink = 0.6 oz pure alcoho l) Sex Assigned at Date Recorded Not on file documented as of this encounter Progress Notes Alyssa Calero, L.P.N. - 12/25/2019 2:55 PM CDT Encounter created for the drive-through COVID-19 testing. documented in this encounter Plan of Treatment Not on filedocumented as of this encounter Procedures Procedure Name Priority Date/Time Associated Diagnosis Comme nts SARS CORONAVIRUS-2 Routine 12/25/2019 3:45 PM Infection Upper Results for this RNA, V CDT Respiratory procedure are i n the results section. documented in this encounter Results SARS Coronavirus-2 RNA, V Symptomatic (12/25/2019 3:45 PM CDT) [facility] Method Time Signature SARS-CoV-2 Swab, 12/26/2019 ECLR Specimen Nasopharynx 2:16 PM CDT Source SARS CoV-2 Undetected Undetected 12/26/2019 ECLR RNA, TMA 2:16 PM CDT Comment: SARS-CoV-2 RNA absent. This result does not rule out COVID-19 in the patient, as the sensitivity of the test depends o n the timing of the specimen collection and the quality of the specim en. Result should be correlated with patient's history and clinical presentat ion. ----ADDITIONAL INFORMATION---- This test is performed using the Aptima SARS-CoV-2 assay ([employer] which has received Emergency Use Authori zation (EUA) by the U.S. Food and Drug Administration. Fact sheets for this Emergency Use Autho rization (EUA) assay can be found at the following links: For Healthcare Providers: https://www.fd a.gov/media/659436/download For Patients: https://www.fda.gov/media/ 451663/download Specimen Anatomical Collection Method Collection Time Receive d Time (Source) Location / / Volume Laterality Varies 12/25/2019 3:45 PM 0 9:28 (Nasopharynx) CDT PM CDT Chirag Fernández P.A.-C. LAB MICROBIOLOGY - GENERAL O RDERABLES Performing Organization Address City/State/ZIP Code Phon e Number [facility]- [address] [place] [address] [phone] [facility] [place] [address] [address] documented in this encounter Visit Diagnoses Diagnosis Infection Upper Respiratory - Primary documented in this encounter Additional Health Concerns Infection Onset Date Last Indicated Resolved Time COVID19 Pending 12/25/2019 12/25/2019 12/26/2019 2:16 PM CDT Assessment Noted Time PHQ-9 Depression Total Score: 3 05/13/2013 2:06 PM DIRECTOR OF STRATEGIC COMMUNICATIONS documented as of this encounter Care Teams Paper Products Inspector Relationship Specialty Start Date End Date Suhail Lemus M.D. PCP - General Family Medicine 09/19/[address] [place] [phone] documented as of this encounter
--- OUTSIDE RECORDS SUMMARY | 2021-12-22 21:54 | XMS_ITS | Encounter Summary ---
:1945 Author Organization [facility] Address [address] [place] [address] Care Team Providers Name Role Phone Suhail Lemus M.D. Primary Care Provider Encounter Details Date Type Department Care Team Description 02/01/2020 Clinical Communication Department of Emilie Fong Ophthalmology in [place], [place] [phone] [address] [facility] (Work) [place] [address] Social History Tobacco Use Types Packs/Day Years Used Date Smoking Tobacco: Never Smokeless Tobacco: Never Alcohol Use Standard Drinks/Week Comments No 0 (1 standard drink = 0.6 oz pure alcoho l) Sex Assigned at Date Recorded Not on file documented as of this encounter Miscellaneous Notes Telephone Encounter - Emilie Fong - 02/01/2020 1:08 PM CST Called patient and Left a voicemail to let her know she can keep her injection on 02/07, O GAME ENGINEER Telephone Encounter - Vahid Thompson M.D. - 02/01/2020 12:59 PM VIDEO GAME ENGINEER No, she should keep scheduled injection. Thank you O GAME ENGINEER Telephone Encounter - Emilie Fong - 02/01/2020 12:29 PM CST Should I cancel her scheduled held injection in [place] on 11/23 then? O GAME ENGINEER Telephone Encounter - Vahid Thompson M.D. - 02/01/2020 11:27 AM VIDEO GAME ENGINEER Unless Dr. Do objects, it is ok to have the patient come on March 25 with the same imaging that was planned for 02/04. Please hold an injection spot. Thank you O GAME ENGINEER documented in this encounter Plan of Treatment Not on filedocumented as of this encounter Visit Diagnoses Not on filedocumented in this encounter Additional Health Concerns Assessment Noted Time PHQ-9 Depression Total Score: 3 05/13/2013 2:06 PM VIDEO GAME ENGINEER documented as of this encounter Care Teams Bandage Wrapping Machine Operator Relationship Specialty Start Date End Date Suhail Lemus M.D. PCP - General Family Medicine 09/19/[address] [place] [phone] documented as of this encounter
--- OUTSIDE RECORDS SUMMARY | 2021-12-22 21:54 | XMS_ITS | Encounter Summary ---
:1945 Author Organization [facility] Address [address] [place] [address] Care Team Providers Name Role Phone Suhail Lemus M.D. Primary Care Provider Reason for Visit Reason Comments Triage Encounter Details Date Type Department Care Team Description 09/14/2019 Nurse Triage Department of [facility] [phone] ([facility] ) [facility], in [address] [phone] Social History Tobacco Use [...] Depression Total Score: 3 05/13/2013 2:06 PM BULK SEALER documented as of this encounter Care Teams Elementary Educator Relationship Specialty Start Date End Date Suhail Lemus M.D. PCP - General Family Medicine 09/19/[address] [place] [phone] documented as of this encounter
--- OUTSIDE RECORDS SUMMARY | 2021-12-22 21:55 | XMS_ITS | Encounter Summary ---
:1945 Author Organization [facility] Address [address] [place] [address] Care Team Providers Name Role Phone Suhail Lemus M.D. Primary Care Provider Encounter Details Date Type Department Care Team Description 04/14/2018 Nurse Triage Department of [facility] Rosie Rosario R.N. Medicine, [facility], in [address] [place], [place] [address] [place] [phone] [place] [address] [phone] Social History Tobacco Use Types Packs/Day Years Used Date Smoking Tobacco: Never Smokeless Tobacco: Never Alcohol Use Standard Drinks/Week Comments No 0 (1 standard drink = 0.6 oz pure alcoho l) Sex Assigned at Date Recorded Not on file documented as of this encounter Miscellaneous Notes Telephone Encounter - Rosina Rosario - 04/14/2018 7:58 AM CST Caller declines triage of symptoms and prefers to just make appointment. Warm transfer back to clinic scheduling per their request. ROBE COORDINATOR documented in this encounter Plan of Treatment Not on filedocumented as of this encounter Visit Diagnoses Not on filedocumented in this encounter Additional Health Concerns Assessment Noted Time PHQ-9 Depression Total Score: 3 05/13/2013 2:06 PM WARDROBE COORDINATOR documented as of this encounter Care Teams Applications Processor Relationship Specialty Start Date End Date Suhail Lemus M.D. PCP - General Family Medicine 09/19/[address] [place] [phone] documented as of this encounter
--- OUTSIDE RECORDS SUMMARY | 2021-12-22 21:55 | XMS_ITS | Encounter Summary ---
:1945 Author Organization [facility] Address [address] [place] [address] Care Team Providers Name Role Phone Suhail Lemus M.D. Primary Care Provider Reason for Visit Reason Comments Sinus Problem x 5 days nasal congestion, t hick yellow drainage, right sided ear pain, eyes are itchy and watery. U sing a Hawk's inhailer. Masked. Encounter Details Date Type Department Care Team Description 03/21/2019 Office Visit [facility] Katie Ronquillo [facility] CANELO Garrett, C.N.P. Respiratory (Primary [address] [facility]) [place] [phone] (Wo rk) Social History Tobacco Use Types Packs/Day Years Used Date Smoking Tobacco: Never Smokeless Tobacco: Never Alcohol Use Standard Drinks/Week Comments No 0 (1 standard drink = 0.6 oz pure alcoho l) Sex Assigned at Date Recorded Not on file documented as of this encounter Last Filed Vital Signs Vital Sign Reading Time Taken Comments Blood Pressure - - Pulse 78 03/21/2019 2:45 PM TRUCK DRIVER HEAVY Temperature 36.3 ??C (97.3 ??F) 03/21/2019 2:45 PM TRUCK DRIVER HEAVY Respiratory Rate - - Oxygen Saturation 96% 03/21/2019 2:45 PM TRUCK DRIVER HEAVY Inhaled Oxygen Concentration - - Weight - - Height - - Body Mass Index - - documented in this encounter Progress Notes Katie Ronquillo APRN, C.N.P. - 03/21/2019 2:45 PM CST SUBJECTIVE CHIEF COMPLAINT/REASON FOR VISIT Sinus symptoms. HISTORY OF PRESENT ILLNESS Kristen Pederson is a 73 y.o. female presents for evaluation of sinus symptoms. History provided by Patient. Patient has had 5 days of symptoms. Symptoms include: nasal congestion, facial pain, posterior pharyngeal drainage, slight cough and yellow nasal drainage. Denies the following symptoms: pain into upper teeth, facial swelling, pain with eye movement, no fevers, dyspnea. Home therapy tried: Vicks rub to the chest and Vicks inhaler. She has a lot of social issues going on she did take a cab today from [facility]. She is providing bedside care to her granddaughter who has been in a prolonged coma for about 14 years. Who is in the respiratory ICU. Her daughter who is the mother of the hospitalized granddaughter has not been able to participate as she is quite ill with a respiratory illness. History of intermittent albuterol use, she denies a diagnosis of asthma but did work in the [employer] industry for a number of years. She has not have any albuterol with her at this time Reviewed past medical history, allergies and medications. OBJECTIVE PHYSICAL EXAMINATION General: Alert, oriented, no acute distress. Eyes: Without conjunctival injection, no drainage present. No periorbital swelling. Nose: Patent, yellow drainage present. Right ear: TM without erythema, no bulging, light reflex present. Canal without erythema, swelling, or drainage present. Left ear: TM without erythema, no bulging, light reflex present. Canal without erythema, swelling, or drainage present. Pharynx: Not erythematous, no tonsillar swelling or exudate. Mucous membranes moist. Uvula midline, no peritonsillar swelling, no trismus. Lymph: No cervical, submandibular, submental, auricular, or supraclavicular adenopathy present. Heart: Regular rate and rhythm. No murmur or click. Lungs: Respirations not labored, symmetric expansion. Clear to auscultation, no wheezes, rhonchi, orrales. Skin: [place], warm, dry. ASSESSMENT / PLAN IMPRESSION/REPORT/PLAN: #1 URI Given her social situation and transportation challenges will put Augmentin on hold at [facility], watchful waiting option recommended. If symptoms worsen in the next 7 days a watch and wait prescription is provided for Augmentin 875 mg twice daily for 7 days, Afrin nasal spray dose per package labeling, no more than 3 days, NeilMed (or similar product) irrigation kit with distilled water 1-2 times daily, Tylenol/ibuprofen for pain and fever and decongestant use discussed. Also provided her with a printed prescription for albuterol should she need to have that filled while she is in the area. Symptomatic measures discussed, using [facility]'s Education entitled Evidence Based Symptom Management of Upper Respiratory Infections in Adults, [id number]. Increase fluids. Humidified air. Hot steam or showers. Follow up in one week if not improving, sooner ir symptoms worsening. Ready to learn, no apparent learning barriers were identified; learning preferences include listening. Explained diagnosis and treatment plan; patient/child/caregiver expressed understanding of the content. Patient has a [facility] online portal account, can view medication list electronically. K DRIVER HEAVY documented in this encounter Plan of Treatment Not on filedocumented as of this encounter Visit Diagnoses Diagnosis Infection Upper Respiratory - Primary documented in this encounter Additional Health Concerns Assessment Noted Time PHQ-9 Depression Total Score: 3 05/13/2013 2:06 PM TRUCK DRIVER HEAVY documented as of this encounter Care Teams Non Categorical Preschool Teacher Relationship Specialty Start Date End Date Suhail Lemus M.D. PCP - General Family Medicine 09/19/[address] [place] [phone] documented as of this encounter
--- OUTSIDE RECORDS SUMMARY | 2021-12-22 21:55 | XMS_ITS | Encounter Summary ---
:1945 Author Organization [facility] Address [address] [place] [address] Care Team Providers Name Role Phone Suhail Lemus M.D. 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 [facility] Procedures Intravitreal Injection Gonda Appt Order - OD - Right Eye [address] [place], [place] [phone] Referral ID Status Reason Start Date Expiration Date Visits V isits Requested Authorized [id number] Canceled 05/29/2019 05/28/2020 5 5 Encounter Details Date Type Department Care Team Description 06/15/2019 Hospital Encounter Department of Janki Do y Branch Ophthalmology in Poncho Reich M.D. Retinal Vein [place], [address] [facility] Occlusion With [place], [place] Macular Edema Right [address] [place] [address] [address] [place] KUMAR [phone] (Work) [phone] Social History Tobacco Use Types Packs/Day Years [...] artificial 1 drop 3 (three) 0 tears,hypromellose, (ISOPTO times a day as TEARS) 0.3 % ophthalmic needed. solution naproxen sodium 220 mg Take 1 capsule by 0 2011 capsule mouth. nystatin (NYSTOP) 100,000 Apply 1 strip 0 020 unit/gram powder topically. albuterol (PROVENTIL Inhale 2 puffs 4 0 8 12/30/2019 HFA,VENTOLIN HFA) 90 (four) times a day mcg/actuation inhaler as needed. albuterol (PROVENTIL Inhale 2 puffs 1 Inhaler 0 03/21/2019 2021 HFA,VENTOLIN HFA) 90 every 4 (four) mcg/actuation inhaler hours as needed (wheezing, cough, or shortness of breath). amLODIPine (NORVASC) 10 mg Take 1 tablet (10 90 tablet 3 09/16/2020 tablet mg total) by mouth daily. HYDROcodone-acetaminophen Take 1-2 tablets 0 08/0 09/201109/14/2020 (NORCO) 10-325 mg per by mouth. tablet methylPREDNISolone (MEDROL Take as directed 21 tablet 0 12/30/2019 DOSEPACK) 4 mg tablet on package. PROAIR HFA 90 mcg/actuation INHALE 2 PUFFS 54 g 3 01/1706/09/2020 inhaler EVERY 4 HOURS NEEDED FOR WHEEZING OR SHORTNESS OF BREATH documented as of this encounter Plan of Treatment Not on filedocumented as of this encounter Procedures Procedure Name Priority Date/Time Associated Comments Diagnosis INTRAVITREAL Routine 06/15/2019 8:33 AM Tributary Branch Resul ts for this INJECTION, CDT Retinal Vein procedure are i n PHARMACOLOGIC AGENT - Occlusion With the results OD - RIGHT EYE Macular Edema Right sectio n. INTRAVITREAL Routine 06/15/2019 7:33 AM Tributary Branch INJECTION, CDT Retinal Vein PHARMACOLOGIC AGENT - Occlusion With OD - RIGHT EYE - RST Macular Edema Right GONDA SCHEDULING ORDER documented in this encounter Results Intravitreal Injection, Pharmacologic Agent - OD - Right Eye (06/15/2019 8:33 AM CDT) Specimen (Source) Anatomical Location Collection Method / Collectio n Time Received Time / Laterality Volume Narrative Delano Pruett M.D. - 06/15/2019 9: 05 AM CDT Pre-Procedure Verification Pre-procedure verification conducted to verify correct patient identity, procedure to be performed and, as applic able, correct side and site. Patient ID band validated and present. P atient consent obtained. 06/15/2019. Time Out Confirmed correct patient, procedure, si te, and patient consented. Anesthesia Topical anesthesia was used. Pre/Post Pr ocedure prep and meds used were Tetracaine 0.5% 1-10 drops, Povidone 5% 1-10 drops, Povidone 10% swabs x 3 to lids and lashes, Proparacaine 0.5% 1- 10 drops, Celluvisc 1-10 drops. Procedure Details Injection: 1.25 mg bevacizumab intravitreal injecti on (AVASTIN) ??[facility]: 77894-498-57, Lot: [id number], Expi ration date: 06/22/2019 ??Route: intravitreal, Site: Right Eye Balanced salt solution irrigation to inj ected eye after the injection was Done. Hand motion was present. Count fin gers was correct. Reviewed instructions and patient verbal izes understanding. Notes Patient oriented to outpatient procedure center. ??Reviewed process for scheduled procedure, and pain management including pain scale. Eye Injections, 7538 reviewed and given, billing card reviewed and given if needed. ??Understanding assessed by [facility] h-back. ??Follow-up appointments discussed and return schedule given if r equested. PROCEDURE: Avastin injection to the right eye. ?? CONSENT Informed consent was obtained. ??Prior t o the procedure, the registered nurse and I reviewed and concurred the p atient's laterality, last injection date, diagnosis and injection interval. PROCEDURE INFORMATION The patient was taken to the exam room. ??3 drops of tetracaine instilled into the eye, allowing ??1 minutes in be tween drops. ??1 drop of betadine instilled in the right eye. ??A Betadine skin prep to the [...] martha. ??The globe was marked inferior temporal 3.5mm posterior to the corneosc leral lumbus, to which .05 mL of Avastin was injected. ??Another drop of 5% betadine ophthalmic was then placed. ??The lid speculum was removed. ?? Post injection vision was verified to be at least count fingers. ?? POST-PROCEDURE INFORMATION Patient was discharged to home. ??Rechec k again in 6-[address] Delano Pruett Delano Pruett M.D. 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 documented in this encounter Administered Medications Inactive Administered Medications - up to 3 most recent administrations Medication Order MAR Action Action Date Dose Rate Site bevacizumab intraocular Given 06/15/2019 8:33 AM CDT 1.25 mg Right Eye injection 1.25 mg (AVASTIN) 1.25 mg, intravitreal, One-Time Injection, Starting on Sat06/15/19 at 0833, For 1 dose documented in this encounter Additional Health Concerns Assessment Noted Time PHQ-9 Depression Total Score: 3 05/13/2013 2:06 PM HOSPITAL ADMISSIONS CLERK documented as of this encounter Care Teams Tool Designer Apprentice Relationship Specialty Start Date End Date Suhail Lemus M.D. PCP - General Family Medicine 09/19/[address] [phone] documented as of this encounter
--- OUTSIDE RECORDS SUMMARY | 2021-12-22 21:55 | XMS_ITS | Encounter Summary ---
:1945 Author Organization [facility] Address [address] [place] [address] Care Team Providers Name Role Phone Suhail Lemus M.D. Primary Care Provider Reason for Visit Reason Comments Med Refill Encounter Details Date Type Department Care Team Description 12/12/2017 Refill Department of Family Medicine, Suhail Ragland M.D. Med Refill [facility], in [place] [id number] [place] [phone] [place], [place] [address] [phone] Social History Tobacco Use Types Packs/Day Years [...] Depression Total Score: 3 05/13/2013 2:06 PM ROADS SUPERINTENDENT documented as of this encounter Care Teams Accountant Relationship Specialty Start Date End Date Suhail Lemus M.D. PCP - General Family Medicine 09/19/[address] [place] [phone] documented as of this encounter
--- OUTSIDE RECORDS SUMMARY | 2021-12-22 21:55 | XMS_ITS | Encounter Summary ---
:1945 Author Organization [facility] Address [address] [place] [address] Care Team Providers Name Role Phone Suhail Lemus M.D. Primary Care Provider Encounter Details Date Type Department Care Team Description 06/23/2019 Clinical Communication Department of Emilie Fong Ophthalmology in [place], [place] [phone] [address] [facility] (Work) [place] [address] Social History Tobacco Use Types Packs/Day Years [...] Depression Total Score: 3 05/13/2013 2:06 PM WAGE CONCILIATOR documented as of this encounter Care Teams Piecer Relationship Specialty Start Date End Date Suhail Lemus M.D. PCP - General Family Medicine 09/19/[address] [place] [phone] documented as of this encounter
--- OUTSIDE RECORDS SUMMARY | 2021-12-22 21:55 | XMS_ITS | Encounter Summary ---
:1945 Author Organization [facility] Address [address] [place] [address] Care Team Providers Name Role Phone Suhail Lemus M.D. Primary Care Provider Reason for Visit Reason Comments Med Refill Encounter Details Date Type Department Care Team Description 05/30/2018 Refill Department of Family Medicine, Suhail Ragland M.D. Med Refill [facility], in [address] [place] [phone] [place] [address] [phone] Social History Tobacco Use Types Packs/Day Years Used Date Smoking Tobacco: Never Smokeless Tobacco: Never Alcohol Use Standard Drinks/Week Comments No 0 (1 standard drink = 0.6 oz pure alcoho l) Sex Assigned at Date Recorded Not on file documented as of this encounter Miscellaneous Notes Telephone Encounter - Ngoc Baker - 05/30/2018 1:56 PM CDT Name of Medication: tramiflu Provider: Bryce Lemus M.D. Strength: na Frequency: na Pharmacy (include Location): [facility] Pt is stating that [facility] will be sending a request for Dr. Lemus or Dr. Forbes to approve a tamiflu rx but the pt would like it sent to the [facility]. documented in this encounter Plan of Treatment Not on filedocumented as of this encounter Visit Diagnoses Not on filedocumented in this encounter Additional Health Concerns Assessment Noted Time PHQ-9 Depression Total Score: 3 05/13/2013 2:06 PM CASINO ENFORCEMENT AGENT documented as of this encounter Care Teams Automation Controls Specialist Relationship Specialty Start Date End Date Suhail Lemus M.D. PCP - General Family Medicine 09/19/[address] [place] [phone] documented as of this encounter
--- OUTSIDE RECORDS SUMMARY | 2021-12-22 21:55 | XMS_ITS | Encounter Summary ---
:1945 Author Organization [facility] Address [address] [place] [address] Care Team Providers Name Role Phone Suhail Lemus M.D. Primary Care Provider Reason for Visit Reason Onset Date Comments Communication 10/07/2017 Encounter Details Date Type Department Care Team Description 10/07/2017 Clinical Communication Department of Javed Hwang Medicine, Roni Jang M.D. [address] [address] [place], [place] [phone] (Work) [phone] Social History Tobacco Use Types Packs/Day Years Used Date Smoking Tobacco: Never Smokeless Tobacco: Never Alcohol Use Standard Drinks/Week Comments No 0 (1 standard drink = 0.6 oz pure alcoho l) Sex Assigned at Date Recorded Not on file documented as of this encounter Miscellaneous Notes Telephone Encounter - Salome Tsai, R.N. - 10/08/2017 1:49 PM CDT RN spoke with pt in regards to her call from 10/07/2017. Pt states she is calling to schedule an appt with PCP. RN informed pt that the Emergency department provider has an order for a ultrasound to rule out DVT.Pt states that she knows that she was informed to complete ultrasound study but it only available onSaturday, Saturday and Saturday mornings for any appt. Pt states she was told in the emergency department that the clinic would call her to schedule the ultrasound appt and no one did. Pt was transferred to scheduling to have a follow-up with PCP and to schedule the ultrasound study. 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 PCP - General Family Medicine 09/19/[address] [place] [phone] documented as of this encounter
--- OUTSIDE RECORDS SUMMARY | 2021-12-22 21:55 | XMS_ITS | Encounter Summary ---
:1945 Author Organization [facility] Address [address] [place] [address] Care Team Providers Name Role Phone Suhail Lemus M.D. Primary Care Provider Reason for Visit Reason Comments URI was seen 04/14 and treated. 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 Appointment Request (Routine) - Closed Specialty Diagnoses / Procedures Referred By Contact Refer red To Contact Family Medicine Referral ID Status Reason Start Date Expiration Date Visits Requ ested Visits Authorized [id number] Closed 05/09/2018 05/09/2019 1 Encounter Details Date Type Department Care Team Description 05/10/2018 Office Visit Department of Family Seda Delgadillo M.D. [address] [place] [address] Pneumonia (Primary Dx); Medicine, [place] Almaz Sparks, P.A.-C. [address] [place] [address] [facility], in [address] [phone] Social History Tobacco Use Types Packs/Day Years Used Date Smoking Tobacco: Never Smokeless Tobacco: Never Alcohol Use Standard Drinks/Week Comments No 0 (1 standard drink = 0.6 oz pure alcoho l) Sex Assigned at Date Recorded Not on file documented as of this encounter Last Filed Vital Signs Vital Sign Reading Time Taken Comments Blood Pressure 188/82 05/10/2018 9:59 AM ELECTRICAL TROUBLESHOOTER Pulse 83 05/10/2018 9:59 AM ELECTRICAL TROUBLESHOOTER Temperature 36.4 ??C (97.5 ??F) 05/10/2018 9:59 AM ELECTRICAL TROUBLESHOOTER Respiratory Rate 20 05/10/2018 9:59 AM ELECTRICAL TROUBLESHOOTER Oxygen Saturation 97% 05/10/2018 9:59 AM ELECTRICAL TROUBLESHOOTER Inhaled Oxygen Concentration - - Weight - - Height - - Body Mass Index - - documented in this encounter Progress Notes Almaz Sparks P.A.-C. - 05/10/2018 9:45 AM CST SUBJECTIVE CHIEF COMPLAINT/REASON FOR VISIT Kristen Pederson is a 72 y.o. female who presents for evaluation of URI (was seen 04/14 and treated. But still has symptoms,) and coughing. HISTORY OF PRESENT ILLNESS Kristen is a 72-year-old female who presents today for evaluation of upper respiratory infection. The patient was seen on 04/14/2018 for evaluation of similar symptoms. At that time she had had two weeks of nasal congestion and thick purulent drainage as well as intermittent chills and fatigue. At that time she was treated with doxycycline for 10 days. She indicates the symptoms did improve however she continues to have some symptoms. Her main complaint today is a productive cough with thick clear phlegm. She has yet to try anything else (other than the antibiotics prescribed previously) for symptoms. She notes her granddaughter was recently in the hospital for pseudomonas infection and has been diagnosed with MRSA before as well. The following portions of the patient's history were reviewed and updated as appropriate: allergies,current medications, medical history, social history and problem list. REVIEW OF SYSTEMS A brief review of systems was negative except for that mentioned in the history of present of illness. CURRENT MEDICATIONS Current Outpatient Medications Medication Sig ??? hydroCHLOROthiazide (HYDRODIURIL) 25 mg tablet Take 25 mg by mouth. ALLERGIES/CONTRAINDICATIONS No Known Allergies OBJECTIVE PHYSICAL EXAMINATION BP (!) 188/82 (BP Location: Left arm) Pulse 83 Temp 36.4 ??C Resp 20 SpO2 97% General: Patient is in no distress. HEENT: Normocephalic. PERRL, Canals patent, bilateral TMs are nonerythematous and non-bulging. Nasalmucosa is nonerythematous and not boggy, turbinates bilaterally are normal in appearance, oropharynxwithout lesion of mucosa. Pharynx rises symmetrically without exudate or erythema. Neck: No cervical or supraclavicular lymphadenopathy. Heart: Regular rate and rhythm. No murmurs, gallops or rubs noted. Lungs: Crackles left lower lobe. Other dyson clear to auscultation bilaterally. No expiratory wheeze,no rhonchi. No accessory muscles of respiration noted. Neuo: Alert and nonfocal, moving all 4 extremities. Psych: Appropriate affect. ASSESSMENT / PLAN #1 Pneumonia Patient's exam is consistent with pneumonia. She was treated with levofloxacin for seven days as well as Mucinex DM for cough and congestion. She has previously been treated with doxycycline, however this was about one month ago. I did reassure patient that a pseudomonas infection will be covered by the prescribed levofloxacin and that I do not feel sputum culture is needed or indicated. Doxycycline also covers for MRSA. I reassured patient and she was discharged home. #2 Cough As noted above. Almaz Sparks P.A.-C. TRICAL TROUBLESHOOTER documented in this encounter Plan of Treatment Not on filedocumented as of this encounter Visit Diagnoses Diagnosis Pneumonia - Primary Cough Unspecified Type documented in this encounter Additional Health Concerns Assessment Noted Time PHQ-9 Depression Total Score: 3 05/13/2013 2:06 PM ELECTRICAL TROUBLESHOOTER documented as of this encounter Care Teams Control Panel Operator Relationship Specialty Start Date End Date Suhail Lemus M.D. PCP - General Family Medicine 09/19/[address] [place] [phone] documented as of this encounter
--- OUTSIDE RECORDS SUMMARY | 2021-12-22 21:55 | XMS_ITS | Encounter Summary ---
:1945 Author Organization [facility] Address [address] [place] [address] Care Team Providers Name Role Phone Suhail Lemus M.D. Primary Care Provider Encounter Details Date Type Department Care Team Description 05/28/2019 Ancillary Procedure Department of [facility] nayeli Reich M.D. [address] [place] [phone] Social History Tobacco Use Types Packs/Day Years Used Date Smoking Tobacco: Never Smokeless Tobacco: Never Alcohol Use Standard Drinks/Week Comments No 0 (1 standard drink = 0.6 oz pure alcoho l) Sex Assigned at Date Recorded Not on file documented as of this encounter Plan of Treatment Not on filedocumented as of this encounter Procedures Procedure Name Priority Date/Time Associated Comments Diagnosis ANGIOGRAPHY - OU - Routine 05/28/2019 11:09 Tributary Branch R esults for this BOTH EYES AM CDT Retinal Vein procedure are i n Occlusion With the results Macular Edema Right section. documented in this encounter Results Fluorescein Angiography - OU - Both Eyes (05/28/2019 11:09 AM CDT) Specimen (Source) Anatomical Location Collection Method / Collectio n Time Received Time / Laterality Volume Narrative OPHTHALMOLOGY IMAGING EXAM - 06/02/19 20 12:58 PM CDT Right Eye Dye used is fluorescein. Fluorescein dos e given is normal. Left Eye Dye used is fluorescein. Fluorescein dos e given is normal. Notes See interpretation in note section Poncho Do M.D. OPHTH PHOTOGRAPHY Performing Organization Address City/State/ZIP Code Phon e Number OPHTHALMOLOGY IMAGING EXAM documented in this encounter Visit Diagnoses Not on filedocumented in this encounter Additional Health Concerns Assessment Noted Time PHQ-9 Depression Total Score: 3 05/13/2013 2:06 PM TRANSFORMER MAKER documented as of this encounter Care Teams Licensed Nursing Assistant Relationship Specialty Start Date End Date Suhail Lemus M.D. PCP - General Family Medicine 09/19/[address] [place] [phone] documented as of this encounter
--- OUTSIDE RECORDS SUMMARY | 2021-12-22 21:55 | XMS_ITS | Encounter Summary ---
:1945 Author Organization [facility] Address [address] [place] [address] Care Team Providers Name Role Phone Suhail Lemus M.D. Primary Care Provider Encounter Details Date Type Department Care Team Description 05/31/2018 [facility], [facility], [place], [place] [address] [place] [phone] Social History Tobacco Use Types Packs/Day Years [...] Depression Total Score: 3 05/13/2013 2:06 PM SOFTWARE REVERSE ENGINEER documented as of this encounter Care Teams Shearer Helper Relationship Specialty Start Date End Date Suhail Lemus M.D. PCP - General Family Medicine 09/19/[address] [place] [phone] documented as of this encounter
--- OUTSIDE RECORDS SUMMARY | 2021-12-22 21:55 | XMS_ITS | Encounter Summary ---
:1945 Author Organization [facility] Address [address] [place] [address] Care Team Providers Name Role Phone Suhail Lemus M.D. Primary Care Provider Encounter Details Date Type Department Care Team Description 10/06/2017 Nurse Triage Department of [facility] Fide Dent R.N. Medicine, [place], in [place], [place] [address] [place] [phone] Social History Tobacco Use Types Packs/Day Years [...] Depression Total Score: 3 05/13/2013 2:06 PM ORIENTATION AND MOBILITY INSTRUCTOR documented as of this encounter Care Teams Weather Strip Mechanic Relationship Specialty Start Date End Date Suhail Lemus M.D. PCP - General Family Medicine 09/19/[address] [place] [phone] documented as of this encounter
--- OUTSIDE RECORDS SUMMARY | 2021-12-22 21:55 | XMS_ITS | Encounter Summary ---
:1945 Author Organization [facility] Address [address] [place] [address] Care Team Providers Name Role Phone Suhail Lemus M.D. Primary Care Provider Reason for Visit Reason Comments Blood Pressure Check Appointment Request (Routine) - Closed Specialty Diagnoses / Procedures Referred By Contact Refer red To Contact Family Medicine Referral ID Status Reason Start Date Expiration Date Visits Requ ested Visits Authorized [id number] Closed 06/26/2019 06/25/2020 1 1 Encounter Details Date Type Department Care Team Description 06/26/2019 Virtual Visit Department of Family Lise Wang Hyper tension Essential Primary (Primary Dx); [place], [place] P[facility]., Body Mass Index 70 And Over Adult (HCC) Clinic, in [address] [phone] Social History Tobacco Use Types Packs/Day Years Used Date Smoking Tobacco: Never Smokeless Tobacco: Never Alcohol Use Standard Drinks/Week Comments No 0 (1 standard drink = 0.6 oz pure alcoho l) Sex Assigned at Date Recorded Not on file documented as of this encounter Progress Notes Lise Wang P.A.-C. - 06/26/2019 8:30 AM CDT SUBJECTIVE PHONE VISIT DATE OF ENCOUNTER: 06/26/19 CHIEF COMPLAINT / REASON FOR PHONE VISIT Blood Pressure Visit HISTORY OF PRESENT ILLNESS Kristen Pederson is a 73 y.o. female who was contacted today via telephone for multiple issues including blood pressure. Patient identity was verified by name and date of . Kristen was very upset on the phone during the conversation today. She cares for her granddaughter who lives on the same property as her. Her granddaughter unfortunately suffered a car accident many yearsago and has been in a coma ever since. 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 She has been doing this for over 1 year. This job includes rotating her granddaughter and repositioning her every 2 hours, giving medications and monitoring her overnight. Her other past medical history includes significant uncontrolled hypertension. She was started on amlodipine for this in the past. I recently saw her a few weeks ago for this issue and recommended sheget a blood pressure cuff to be checking her blood pressures at home on a consistent basis. Recommended that if they continue to be elevated that we would start an additional medication. Unfortunately,she just purchased her blood pressure cuff and has not been writing down her values. I recommended that she start doing this. She suffered a retinal vein occlusion a few months back as well and it is essential that we get her blood pressure under good control. She states she is extremely upset because her daughter found out about the retinal vein occlusion and high blood pressure and does not want her working 7 days per week anymore. She states that her daughter thinks this is too much and is trying to take away shifts from her. She asked that I try to speak with her daughter and get more information from her perspective. I spoke to the patient's daughter, Vijaya on the phone with the patient's permission. Vijaya expressedher extreme concern for her mother's health. She is worried about her uncontrolled hypertension, stress levels and lack of sleep secondary to her job. She states that she was told once by a doctor appro ximately 1 year ago that her mom was working too many hours. She states that she loves her mother wants her to be in the best health she can be moving forward. She thinks that it would be reasonable tohave her care for her daughter 3 nights per week rather than 7 so that she is able to get good sleepon the other days of the week. I asked Vijaya to put her mom on speaker phone so the 3 of us could have a conversation regarding this and come to a could compromise. The following portions of the patient's history were reviewed and updated as appropriate: allergies,current medications, family history, medical history, social history, surgical history and problem list. MEDICATIONS Reviewed and updated. Outpatient Medications Prior to Visit Medication Sig Dispense Refill ??? albuterol (PROVENTIL HFA,VENTOLIN HFA) 90 mcg/actuation inhaler Inhale 2 puffs 4 (four) times a day as needed. ??? albuterol (PROVENTIL HFA,VENTOLIN HFA) 90 mcg/actuation inhaler Inhale 2 puffs every 4 (four) hours as needed (wheezing, cough, or shortness of breath). 1 Inhaler 0 ??? amLODIPine (NORVASC) 10 mg tablet Take 1 tablet (10 mg total) by mouth daily. 90 tablet 3 ??? artificial tears,hypromellose, (ISOPTO TEARS) 0.3 % [...] NEEDED FOR WHEEZING OR SHORTNESS OF BREATH 54 g 3 ??? methylPREDNISolone (MEDROL DOSEPACK) 4 mg tablet Take as directed on package. (Patient not taking: Reported on 06/26/2019 ) 21 tablet 0 No facility-administered medications prior to visit. OBJECTIVE PHYSICAL EXAMINATION LIMITED GIVEN THAT THIS IS A TELEPHONE ENCOUNTER Psychiatry: Patient frustrated, tearful and shouting much of the visit. DIAGNOSTICS Reviewed in the EHR. ASSESSMENT / PLAN .1. Hypertension Essential Primary 2. Body Mass Index 70 And Over Adult (HCC) Had a lengthy conversation with the patient and her daughter Vijaya. Reviewed with Kristen, the patient,the ultimately we have her best interest and health at heart. I do think that there is a compromise that we could come to so that and is able to have enough time to take care of herself and get good quality sleep as well as be able to care for her granddaughter which is something she is very passionate about. The patient ultimately expressed severe frustration with both her daughter and myself. She feels as though as citing with her daughter. I again expressed that I am an unbiased green party and ultimately have her health at my best interest. Recommended that she be checking her blood pressure once daily, taking her amlodipine is indicated, trying to get good quality sleep each day, and incorporating more exercise into her lifestyle. I also recommended trying to sit down to come up with a fair schedule including may be working shorter shifts such as 6 hours shifts for 5 nights a week, or 3 days a week 12 hour shifts as her daughterjosse suggested. She also has full access to seen her granddaughter at other times during the day or evening if she would like. Patient vehemently refused these suggestions and stated she never wanted to speak to me again. She was quite upset and shouting throughout most of the conversation. I again expressed my understanding of her frustration and that she has been taking great care of her granddaughter, but that ultimately wanted to make sure that she is getting adequate sleep, having time to copewith her many stressors in her life, and making sure that she is taking care of herself so that she can care for others. I personally spent a total of 47 minutes in phone visit time performing a review of the record and/or discussion with the patient/caregiver as described above. This Telephone Visit was performed during the COVID-19 emergency, when many states had issued [id number] orders. Lise Wang P.A.-C. documented in this encounter Plan of Treatment Not on filedocumented as of this encounter Visit Diagnoses Diagnosis Hypertension Essential Primary - Primary Body Mass Index 70 And Over Adult (HCC) documented in this encounter Additional Health Concerns Assessment Noted Time PHQ-9 Depression Total Score: 3 05/13/2013 2:06 PM PROPERTY MAINTENANCE SUPERVISOR documented as of this encounter Care Teams Log Handling Equipment Operator Relationship Specialty Start Date End Date Suhail Lemus M.D. PCP - General Family Medicine 09/19/[address] [place] [phone] documented as of this encounter
--- OUTSIDE RECORDS SUMMARY | 2021-12-22 21:55 | XMS_ITS | Encounter Summary ---
:1945 Author Organization [facility] Address [address] [place] [address] Care Team Providers Name Role Phone Suhail Lemus M.D. Primary Care Provider Reason for Visit Reason Comments Blood pressure follow-up Encounter Details Date Type Department Care Team Description 06/18/2019 Clinical Communication Department of Lise Wang od tomy Family Medicine, L, P.A.-CSariah, follow-up [facility], in [address] [phone] Social History Tobacco Use Types Packs/Day Years Used Date Smoking Tobacco: Never Smokeless Tobacco: Never Alcohol Use Standard Drinks/Week Comments No 0 (1 standard drink = 0.6 oz pure alcoho l) Sex Assigned at Date Recorded Not on file documented as of this encounter Miscellaneous Notes Telephone Encounter - Jen Quigley, R.N. - 06/18/2019 8:15 AM CDT SUBJECTIVE CHIEF COMPLAINT / REASON FOR CALL Blood pressure follow-up Information Discussed Pt contacted who states she is taking her medication as it's been prescribed, but denies having a home blood pressure cuff/machine and is not able to tell us what her blood pressure has been doing. Pt states she has an eye injection scheduled for next week, and will have the nurse helping for the injection check it then. PLAN Disposition/Recommendation: recommended continue engagement in self-management activities Information/Education: patient/caller able to teach back Caller agreeable to plan of care: yes The following references were used: provider Lise Wang Telephone Encounter - Jen Quigley R.N. - 06/18/2019 6:21 AM CDT Images from the original note were not included. Lise Wang P.A.-C. P [facility] Team Nurse ?? Please call Kristen and check on her blood pressure since consistently taking amlodipine and checking home pressures. Lise Duarte documented in this encounter Plan of Treatment Not on filedocumented as of this encounter Visit Diagnoses Not on filedocumented in this encounter Additional Health Concerns Assessment Noted Time PHQ-9 Depression Total Score: 3 05/13/2013 2:06 PM FIELD PRODUCER documented as of this encounter Care Teams Biomass Plant Technician Relationship Specialty Start Date End Date Suhail Lemus M.D. PCP - General Family Medicine 09/19/[address] [place] [phone] documented as of this encounter
--- OUTSIDE RECORDS SUMMARY | 2021-12-22 21:55 | XMS_ITS | Encounter Summary ---
:1945 Author Organization [facility] Address [address] [place] [address] Care Team Providers Name Role Phone Suhail Lemus M.D. Primary Care Provider Encounter Details Date Type Department Care Team Description 06/01/2019 Clinical Communication Department of Anam Dahl, Ophthalmology in [place], [place] [address] [facility] [address] [place] [phone] Social History Tobacco Use Types Packs/Day Years [...] Depression Total Score: 3 05/13/2013 2:06 PM CLINICAL DOCUMENTATION IMPROVEMENT SPECIALIST documented as of this encounter Care Teams Middleware Administrator Relationship Specialty Start Date End Date Suhail Lemus M.D. PCP - General Family Medicine 09/19/[address] [place] [phone] documented as of this encounter
--- OUTSIDE RECORDS SUMMARY | 2021-12-22 21:55 | XMS_ITS | Encounter Summary ---
:1945 Author Organization [facility] Address [address] [place] [address] Care Team Providers Name Role Phone Suhail Lemus M.D. Primary Care Provider Reason for Visit Reason Comments Blurred Vision Outpatient (Routine) - Closed Specialty Diagnoses / Procedures Referred By Contact Refer red To Contact Ophthalmology Diagnoses Tributary Branch Retinal Vein Occlusion With Macular Edema Right [facility] [address] [place] [phone] Referral ID Status Reason Start Date Expiration Date Visits Requ ested Visits Authorized [id number] Closed 04/29/2019 04/28/2020 1 1 Encounter Details Date Type Department Care Team Description 05/29/2019 Comprehensive Visit Department of Giulia Do Age-Related Macular Degeneration Unspecified Stage Bilateral (Primary Dx); Ophthalmology in Poncho Reich M.D. Tributary Branch Retinal Vein Occlusion With Macular Edema Right; [place], [place] [address] [facility] Age Related Nuclear Cataract Bilateral; [address] [place], [place] Membrane Macula [place] [phone] Social History Tobacco Use Types Packs/Day Years Used Date Smoking Tobacco: Never Smokeless Tobacco: Never Alcohol Use Standard Drinks/Week Comments No 0 (1 standard drink = 0.6 oz pure alcoho l) Sex Assigned at Date Recorded Not on file documented as of this encounter Consult Notes Poncho Do M.D. - 05/29/2019 8:30 AM CDT Referred by Dr. Tee Quigley MD # Tributary branch retinal vein occlusion, RIGHT eye -History of PRESLEY, HTN, obesity. -Hx of HTN previously on 200/80. Started on amlodipine one month ago and now runs about 150/80. Hx of PRESLEY, not treated. No personal or family history of glaucoma. No history of blood clotting disorders. # Macular Edema, RIGHT eye -Secondary to above # Epiretinal membrane, LEFT eye # Cataract, BOTH eyes # Dry age-related macular degeneration Recommend AREDS2 Selected imaging: OCT macula 05/2019 RIGHT: superior macula thickening with IRF and SRF LEFT: Normal foveal contour OPTOS fluorescein angiography 05/2019 right eye: sup macular BRVO with blocking and leakage early hypofluorescence with late patchy areas of leakage Left eye: Normal filling IMPRESSION 05/29/19: Branch retinal vein occlusion right eye with macular edema likely precipitated by comorbid conditions of PRESLEY, HTN, and obesity. No history of glaucoma or hypercoagualibility. Discussed continuing to work with PCP to manage underlying vascular risk factors - blood pressure control, treating PRESLEY, and weight loss. Discussed the option of anti-VEGF injections risks/benefits/alternatives. Plan Plan for Injections 05/29/19: Avastin RIGHT for BRVO/CME within 1 week Follow up for 3 more injections every 4-5 weeks Follow up: 4-5 weeks after the last injection with OCT both eyes (hold injection slot) Injection details: [place] or [place] injections COVID OUTBREAK ADDENDUM 06/11/19: The current COVID-19 pandemic has altered risk/benefit/alternative considerations discussed with Kristen Pederson at the prior appointment. I recommend contacting Kristen Pederson for an updated discussion of individual medical and ocular conditions, to inquire about current symptoms and vision, and to create an updated management plan that both minimizes risk of viral infection to the individual and their family and lowers the risk of community viral spread, all in the setting of anindividualized plan for the current ocular condition. Provisional Plan 06/11/19: OK to continue number of injections but extend interval to q6-8 weeks ADDENDUM 06/15/19: Tamy Champion spoke to pt's daughter over phone on 06/15/19. We discussed the risks/benefits of the new plan outlined above. Pt's daughter will give the message to pt. Pt will call if pt has any questions or experiences any vision changes prior to next visit. documented in this encounter Plan of Treatment Not on filedocumented as of this encounter Visit Diagnoses Diagnosis Nonexudative Age-Related Macular Degener ation Unspecified Stage Bilateral - Primary Tributary Branch Retinal Vein Occlusion With Macular Edema Right Age Related Nuclear Cataract Bilateral Membrane Macula Epiretinal Left documented in this encounter Additional Health Concerns Assessment Noted Time PHQ-9 Depression Total Score: 3 05/13/2013 2:06 PM HOME HEALTH TRAVEL OT documented as of this encounter Care Teams Retail Selling Floor Leader Relationship Specialty Start Date End Date Suhail Lemus M.D. PCP - General Family Medicine 09/19/[address] [place] [phone] documented as of this encounter
--- OUTSIDE RECORDS SUMMARY | 2021-12-22 21:55 | XMS_ITS | Encounter Summary ---
:1945 Author Organization [facility] Address [address] [place] [address] Care Team Providers Name Role Phone Suhail Lemus M.D. 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 [address] [place] [phone] Referral ID Status Reason Start Date Expiration Date Visits Requ ested Visits Authorized [id number] Closed 04/29/2019 04/28/2020 1 1 NICAL AID Reason for Visit Reason Comments Blurred Vision Encounter Details Date Type Department Care Team Description 04/29/2019 Office Visit Department of Tee Quigleyutar y Branch Retinal Vein Occlusion With Macular Edema Right (Primary Dx); Ophthalmology in Main [place] M.D. Membrane Macula Epiretinal Left; [address] Cataract Senile Nuclear Sclerosis Bilate ral [address] [place] [phone] Social History Tobacco Use Types Packs/Day Years Used Date Smoking Tobacco: Never Smokeless Tobacco: Never Alcohol Use Standard Drinks/Week Comments No 0 (1 standard drink = 0.6 oz pure alcoho l) Sex Assigned at Date Recorded Not on file documented as of this encounter Progress Notes Tee Quigley M.D. - 04/29/2019 11:00 AM CST Kristen Pederson was seen today for Blurred Vision #1 Tributary Branch Retinal Vein Occlusion With Macular Edema Right #2 Membrane Macula Epiretinal Left #3 Cataract Senile Nuclear Sclerosis Bilateral Right superior vein occlusion. Macular edema present. Recommend evaluation with Retina for further treatment recommendations. Patient is from the [facility] and would prefer to follow up there for further treatment per recommendations. Mild epiretinal membrane left discussed with patient, observe at this time. Mild nuclear sclerosis, both eyes, observe at this time. NICAL AID documented in this encounter Plan of Treatment Scheduled Referrals Name Type Priority Associated Order Schedule Diagnoses Ophthalmology - Retina Outpatient Referral Routine Tributary B ranch Expected: consult (clinic) Retinal Vein 04/29/2019 Occlusion With (Approximate) , Macular Edema Right Expires: 04/29/2022 documented as of this encounter Visit Diagnoses Diagnosis Tributary Branch Retinal Vein Occlusion With Macular Edema Right - Primary Membrane Macula Epiretinal Left Cataract Senile Nuclear Sclerosis Bilate ral documented in this encounter Additional Health Concerns Assessment Noted Time PHQ-9 Depression Total Score: 3 05/13/2013 2:06 PM TECHNICAL AID documented as of this encounter Care Teams Pizza Delivery Driver Relationship Specialty Start Date End Date Suhail Lemus M.D. PCP - General Family Medicine 09/19/[address] [place] [phone] documented as of this encounter
--- OUTSIDE RECORDS SUMMARY | 2021-12-22 21:55 | XMS_ITS | Encounter Summary ---
:1945 Author Organization [facility] Address [address] [place] [address] Care Team Providers Name Role Phone Suhail Lemus M.D. Primary Care Provider Encounter Details Date Type Department Care Team Description 04/29/2019 Orders Only Department of Jose Alberto Hernandes [facility] Branch Ophthalmology in [place]. Retinal Vein [place], [place] [address] [facility] Occlusion With [address] [place], [place] [phone] (Primary Dx) [phone] Social History Tobacco Use Types Packs/Day Years Used Date Smoking Tobacco: Never Smokeless Tobacco: Never Alcohol Use Standard Drinks/Week Comments No 0 (1 standard drink = 0.6 oz pure alcoho l) Sex Assigned at Date Recorded Not on file documented as of this encounter Plan of Treatment Not on filedocumented as of this encounter Results Optical Coherence Tomography (OCT) - Macula/Retina - OU - Both Eyes (05/28/2019 11:10 AM CDT) Specimen (Source) Anatomical Location Collection Method / Collectio n Time Received Time / Laterality Volume Narrative OPHTHALMOLOGY IMAGING EXAM - 06/02/19 20 12:58 PM CDT Right Eye OCT device used was Spectralis . Left Eye OCT device used was Spectralis . Notes See interpretation in note section Poncho Do M.D. OPHTH TOMOGRAPHY Performing Organization Address City/State/ZIP Code Phon e Number OPHTHALMOLOGY IMAGING EXAM Fluorescein Angiography - OU - Both Eyes (05/28/2019 11:09 AM CDT) Specimen (Source) Anatomical Location Collection Method / Collectio n Time Received Time / Laterality Volume Narrative OPHTHALMOLOGY IMAGING EXAM - 06/02/19 12:58 PM CDT Right Eye Dye used is fluorescein. Fluorescein dos e given is normal. Left Eye Dye used is fluorescein. Fluorescein dos e given is normal. Notes See interpretation in note section Poncho Do M.D. OPHTH PHOTOGRAPHY Performing Organization Address City/[facility]/ZIP Code Phon e Number OPHTHALMOLOGY IMAGING EXAM Fundus Photos - OU - Both Eyes (05/28/2019 9:26 AM CDT) Specimen (Source) Anatomical Location Collection Method / Collectio n Time Received Time / Laterality Volume Narrative OPHTHALMOLOGY IMAGING EXAM - 06/02/19 12:58 PM CDT Right Eye Field of view is standard view. Fundus p hoto type obtained is Color. Left Eye Field of view is standard view. Fundus p hoto type obtained is Color. Notes C/w exam Poncho oD M.D. OPHTH PHOTOGRAPHY Performing Organization Address City/State/ZIP Code Phon e Number OPHTHALMOLOGY IMAGING EXAM documented in this encounter Visit Diagnoses Diagnosis Tributary Branch Retinal Vein Occlusion With Macular Edema Right - Primary [place] Branch Retinal Vein Occlusion With Macular Edema Right - Primary Tributary Branch Retinal Vein Occlusion With Macular Edema Right Tributary Branch Retinal Vein Occlusion With Macular Edema Right documented in this encounter Additional Health Concerns Assessment Noted Time PHQ-9 Depression Total Score: 3 05/13/2013 2:06 PM ELECTRON BEAM WELDER documented as of this encounter Care Teams Printer Repair Technician Relationship Specialty Start Date End Date Suhail Lemus M.D. PCP - General Family Medicine 09/19/[address] [place] [phone] documented as of this encounter
--- OUTSIDE RECORDS SUMMARY | 2021-12-22 21:55 | XMS_ITS | Encounter Summary ---
:1945 Author Organization [facility] Address [address] [place] [address] Care Team Providers Name Role Phone Suhail Lemus M.D. Primary Care Provider Encounter Details Date Type Department Care Team Description 05/28/2019 Ancillary Procedure Department of Ophthalmology Social History Tobacco Use Types Packs/Day Years Used Date Smoking Tobacco: Never Smokeless Tobacco: Never Alcohol Use Standard Drinks/Week Comments No 0 (1 standard drink = 0.6 oz pure alcoho l) Sex Assigned at Date Recorded Not on file documented as of this encounter Plan of Treatment Not on filedocumented as of this encounter Procedures Procedure Name Priority Date/Time Associated Comments Diagnosis OPHTHALMOLOGY IMAGE Routine 05/28/2019 10:45 Resu lts for this EXAM AM CDT procedure are i n the results section. documented in this encounter Results Optos Photography-Ophthalmology Image Exam (05/28/2019 10:45 AM CDT) Specimen (Source) Anatomical Collection Method Collection Time Re ceived Time Location / / Volume Laterality 05/28/2019 10:41 AM CDT Narrative [facility] - 05/28/2019 11:14 AM CDT This order has been created and auto-finalized to support the import of images acquired without order. The clini samuel documentation to support these images can be found on the encounter vikash t produced images. Provider Not In System IMG NON RAD IMAGING PROCEDUR ES Performing Organization Address City/State/ZIP Code Phon e Number IIMS [facility] NA documented in this encounter Visit Diagnoses Not on filedocumented in this encounter Additional Health Concerns Assessment Noted Time PHQ-9 Depression Total Score: 3 05/13/2013 2:06 PM MANAGER LSW documented as of this encounter Care Teams Ent Physician Relationship Specialty Start Date End Date Suhail Lemus M.D. PCP - General Family Medicine 09/19/[address] [place] [phone] documented as of this encounter
--- OUTSIDE RECORDS SUMMARY | 2021-12-22 21:55 | XMS_ITS | Encounter Summary ---
:1945 Author Organization [facility] Address [address] [place] [address] Care Team Providers Name Role Phone Suhail Lemus M.D. Primary Care Provider Reason for Referral Outpatient (Routine) - Closed Specialty Diagnoses / Procedures Referred By Contact Refer red To Contact Ophthalmology Poncho Do M.D. [place] [address] [place] [phone] Referral ID Status Reason Start Date Expiration Date Visits Requ ested Visits Authorized [id number] Closed 06/12/2019 06/11/2020 1 1 Scheduling Instructions Plan for Injections 05/29/19: Avastin RIGHT for BRVO/CME within 1 week Follow up for 3 more injections every 4- 5 weeks Provisional Plan 06/11/19:?? OK to continue number of injections but extend interval to q6-8 weeks?? Follow up: 4-5 weeks after the last inje ction with OCT both eyes (hold injection slot) ?? Injection details: [place] or [place] Fa [place] injections Encounter Details Date Type Department Care Team Description 06/12/2019 Orders Only Department of Sarah Mcdaniel Replaced By [facility] Branch Ophthalmology in [facility] Retinal Vei n [place], [place] Occlusion With [address] [place] [phone] (Primary Dx) [phone] Social History Tobacco Use Types Packs/Day Years Used Date Smoking Tobacco: Never Smokeless Tobacco: Never Alcohol Use Standard Drinks/Week Comments No 0 (1 standard drink = 0.6 oz pure alcoho l) Sex Assigned at Date Recorded Not on file documented as of this encounter Plan of Treatment Scheduled Orders Name Type Priority Associated Diagnoses Order S chedule Optical Coherence Ophthalmology Routine Tributary Branch 1 Occ urrences Tomography (OCT) - Retinal Vein starting 06/12/2019 Macula/Retina - OU - Occlusion With until 06/11/2022 Both Eyes Macular Edema Right Scheduled Referrals Name Type Priority Associated Order Schedule Diagnoses Ophthalmology office Outpatient Routine 1 Occur rences visit (clinic) Referral starting 05/17 until 3 documented as of this encounter Visit Diagnoses Diagnosis Tributary Branch Retinal Vein Occlusion With Macular Edema Right - Primary documented in this encounter Additional Health Concerns Assessment Noted Time PHQ-9 Depression Total Score: 3 05/13/2013 2:06 PM AGRICULTURAL AGENT documented as of this encounter Care Teams Stem Roller Operator Relationship Specialty Start Date End Date Suhail Lemus M.D. PCP - General Family Medicine 09/19/[address] [place] [phone] documented as of this encounter
--- OUTSIDE RECORDS SUMMARY | 2021-12-22 21:55 | XMS_ITS | Encounter Summary ---
:1945 Author Organization [facility] Address [address] [place] [address] Care Team Providers Name Role Phone Suhail Lemus M.D. Primary Care Provider Encounter Details Date Type Department Care Team Description 06/15/2019 Hospital Encounter Department of Delano Pruett Ophthalmology in Roni Zelaya M.D. [address] [phone] Social History Tobacco Use Types Packs/Day Years [...] 1.25 mg bevacizumab intravitreal injecti on (AVASTIN) ??[facility]: 88402-491-77, Lot: [id number], Expi ration date: 06/22/2019 ??Route: intravitreal, Site: Right Eye Balanced salt solution irrigation to inj ected eye after the injection was Done. Hand motion was present. Count fin gers was correct. Reviewed instructions and patient verbal izes understanding. Notes Patient oriented to outpatient procedure center. ??Reviewed process for scheduled procedure, and pain management including pain scale. Eye Injections, [place] [id number] reviewed and given, billing card reviewed and given if needed. ??Understanding assessed by [facility] h-back. ??Follow-up appointments discussed and return [...] Depression Total Score: 3 05/13/2013 2:06 PM IOS ARCHITECT documented as of this encounter Care Teams Certified Ophthalmic Technologist Relationship Specialty Start Date End Date Suhail Lemus M.D. PCP - General Family Medicine 09/19/[address] [place] [address] [phone] documented as of this encounter
--- OUTSIDE RECORDS SUMMARY | 2021-12-22 21:55 | XMS_ITS | Encounter Summary ---
:1945 Author Organization [facility] Address [address] [place] [address] Care Team Providers Name Role Phone Suhail Lemus M.D. Primary Care Provider Reason for Visit Reason Onset Date Comments Pre-visit Testing Orders 04/29/2019 Encounter Details Date Type Department Care Team Description 04/29/2019 Clinical Department of Ernestina Pre-visit Test ing Communication Ophthalmology in Poncho Reich M.D. Orders [place], [place] [address] [facility] [address] [place] [phone] Social History Tobacco Use Types Packs/Day Years Used Date Smoking Tobacco: Never Smokeless Tobacco: Never Alcohol Use Standard Drinks/Week Comments No 0 (1 standard drink = 0.6 oz pure alcoho l) Sex Assigned at Date Recorded Not on file documented as of this encounter Miscellaneous Notes Telephone Encounter - Jose Alberto Hernandes V. - 04/29/2019 1:40 PM CST Orders placed CTOR OF ACCOUNTS PAYABLE Telephone Encounter - Vira Flor - 04/29/2019 1:11 PM CST The following tests need order proxies for Dr. Do Indication for the order Branch Retinal Vein Occlusion The following eye(s) are affected Both eyes Order Que that needs to be selected OPH MA E4 PAC OCT macula Spectralis-retina, Fundus photos, Fluorescein Angiogram; Is the patient ? NO Transit which eye? OU No email communication from the physician regarding testing. PER SOP: Fundus Standard; OCT Spectralis; Optos Vira Mina CTOR OF ACCOUNTS PAYABLE documented in this encounter Plan of Treatment Not on filedocumented as of this encounter Visit Diagnoses Not on filedocumented in this encounter Additional Health Concerns Assessment Noted Time PHQ-9 Depression Total Score: 3 05/13/2013 2:06 PM DIRECTOR OF ACCOUNTS PAYABLE documented as of this encounter Care Teams Facility Practice Specialist Relationship Specialty Start Date End Date Suhail Lemus M.D. PCP - General Family Medicine 09/19/[address] [place] [address] [phone] documented as of this encounter
--- OUTSIDE RECORDS SUMMARY | 2021-12-22 21:55 | XMS_ITS | Encounter Summary ---
:1945 Author Organization [facility] Address [address] [place] [address] Care Team Providers Name Role Phone Suhail [...] Associated Comments Diagnosis OPHTHALMOLOGY IMAGE Routine 05/28/2019 10:26 Resu lts for this EXAM AM CDT procedure are i n the results section. documented in this encounter Results Eyes Spectralis OCT-Ophthalmology Image Exam (05/28/2019 10:26 AM CDT) Specimen (Source) Anatomical Collection Method Collection Time Re ceived Time Location / / Volume Laterality 05/28/2019 12:00 PM CDT Narrative [facility] - 05/28/2019 10:26 AM CDT This order has been created [...] Depression Total Score: 3 05/13/2013 2:06 PM DIVING BOARD ASSEMBLER documented as of this encounter Care Teams Metal Sorter Relationship Specialty Start Date End Date Suhail Lemus M.D. PCP - General Family Medicine 09/19/[address] [place] [phone] documented as of this encounter
--- OUTSIDE RECORDS SUMMARY | 2021-12-22 21:55 | XMS_ITS | Encounter Summary ---
:1945 Author Organization [facility] Address [address] [place] [address] Care Team Providers Name Role Phone Suhail [...] Associated Comments Diagnosis OPHTHALMOLOGY IMAGE Routine 05/28/2019 10:05 Resu lts for this EXAM AM CDT procedure are i n the results section. documented in this encounter Results Eyes Color-Ophthalmology Image Exam (05/28/2019 10:05 AM CDT) Specimen (Source) Anatomical Collection Method Collection Time Re ceived Time Location / / Volume Laterality 05/28/2019 12:00 PM CDT Narrative [facility] - 05/28/2019 10:05 AM CDT This order has been created [...] Depression Total Score: 3 05/13/2013 2:06 PM EQUIPMENT OPERATOR WAREHOUSE documented as of this encounter Care Teams Reporting Developer Relationship Specialty Start Date End Date Suhail Lemus M.D. PCP - General Family Medicine 09/19/[address] [place] [phone] documented as of this encounter
--- OUTSIDE RECORDS SUMMARY | 2021-12-22 21:55 | XMS_ITS | Encounter Summary ---
:1945 Author Organization [facility] Address [address] [place] [address] Care Team Providers Name Role Phone Suhail Lemus M.D. Primary Care Provider Reason for Visit Reason Comments Med Refill Encounter Details Date Type Department Care Team Description 02/03/2019 Refill Department of Family Medicine, Suhail Ragland M.D. Med Refill [facility], in [place] [address] [place] [phone] [place], [place] [phone] Social History Tobacco Use Types Packs/Day Years [...] Depression Total Score: 3 05/13/2013 2:06 PM THREADING MACHINE SETTER documented as of this encounter Care Teams Director Of Athletics Relationship Specialty Start Date End Date Suhail Lemus M.D. PCP - General Family Medicine 09/19/[address] [place] [address] [phone] documented as of this encounter
--- OUTSIDE RECORDS SUMMARY | 2021-12-22 21:55 | XMS_ITS | Encounter Summary ---
:[address] [facility] Address [address] [place] [address] Care Team Providers Name Role Phone Suhail Lemus M.D. Primary Care Provider Reason for Visit Reason Comments Appointment Injections Encounter Details Date Type Department Care Team Description 06/22/2019 Clinical Department of [facility], Appointment Communication Ophthalmology in Main [place] ([facility]) Dinah Bains M.D. [address] [facility] 701 [facility] [address] [place], [place] [phone] Social History Tobacco Use Types Packs/Day Years Used Date Smoking Tobacco: Never Smokeless Tobacco: Never Alcohol Use Standard Drinks/Week Comments No 0 (1 standard drink = 0.6 oz pure alcoho l) Sex Assigned at Date Recorded Not on file documented as of this encounter Miscellaneous Notes Telephone Encounter - Kendal Crockett C.O.A. - 06/22/2019 8:43 AM CDT Forwarding to [place] injection team Telephone Encounter - Juan C Bhatia - 06/22/2019 8:32 AM CDT Patient was supposed to have an eye injection appointment 06/29/19 in [place]. It has been cancelled but the patient states she was not made aware of the need for this appointment to be cancelled. Please contact her at either: [phone] or [phone]. Thank you documented in this encounter Plan of Treatment Not on filedocumented as of this encounter Visit Diagnoses Not on filedocumented in this encounter Additional Health Concerns Assessment Noted Time PHQ-9 Depression Total Score: 3 05/13/2013 2:06 PM BALANCE WHEEL MOTION INSPECTOR documented as of this encounter Care Teams Extrusion Technician Relationship Specialty Start Date End Date Suhail Lemus M.D. PCP - General Family Medicine 09/19/[address] [place] [phone] documented as of this encounter
--- OUTSIDE RECORDS SUMMARY | 2021-12-22 21:55 | XMS_ITS | Encounter Summary ---
:1945 Author Organization [facility] Address [address] [place] [address] Care Team Providers Name Role Phone Suhail Lemus M.D. Primary Care Provider Encounter Details Date Type Department Care Team Description 06/11/2019 Clinical Communication Department of [place], Ophthalmology in Poncho Reich M.D. [address] [place] [phone] Social History Tobacco Use Types Packs/Day Years Used Date Smoking Tobacco: Never Smokeless Tobacco: Never Alcohol Use Standard Drinks/Week Comments No 0 (1 standard drink = 0.6 oz pure alcoho l) Sex Assigned at Date Recorded Not on file documented as of this encounter Miscellaneous Notes Telephone Encounter - Kinza Mcnair, C.O.A. - 06/15/2019 1:51 PM CDT Please change return post injection series Order placed, thanks Telephone Encounter - Tamy Champion M.D. - 06/15/2019 1:38 PM CDT I spoke to pt's daughter and informed her of the plan. Pt's daughter will give her the message and pt can call me if she has questions or concerns. Schedulers, please note--would recommend she f/u with Dr. Do 6-8 weeks after her last injection. Telephone Encounter - Sarah Mcdaniel COMT - 06/12/2019 12:00 PM CDT New interval for plan per AJB. New orders placed. Please adjust any scheduled injections accordingly. documented in this encounter Plan of Treatment Not on filedocumented as of this encounter Visit Diagnoses Not on filedocumented in this encounter Additional Health Concerns Assessment Noted Time PHQ-9 Depression Total Score: 3 05/13/2013 2:06 PM TABLE GAMES DEALER documented as of this encounter Care Teams Liner Inserter Relationship Specialty Start Date End Date Suhail Lemus M.D. PCP - General Family Medicine 09/19/[address] [place] [phone] documented as of this encounter
--- OUTSIDE RECORDS SUMMARY | 2021-12-22 21:55 | XMS_ITS | Encounter Summary ---
:1945 Author Organization [facility] Address [address] [place] [address] Care Team Providers Name Role Phone Suhail Lemus M.D. Primary Care Provider Reason for Visit Reason Comments Testing only visit Encounter Details Date Type Department Care Team Description 05/28/2019 Ancillary Department of [facility] Do [facility] Procedure Ophthalmology in Poncho Reich M.D. Retinal Vein [place], [place] [address] [facility] Occlusion With [address] [place], [place] [phone] Social History Tobacco Use Types Packs/Day Years Used Date Smoking Tobacco: Never Smokeless Tobacco: Never Alcohol Use Standard Drinks/Week Comments No 0 (1 standard drink = 0.6 oz pure alcoho l) Sex Assigned at Date Recorded Not on file documented as of this encounter Plan of Treatment Not on filedocumented as of this encounter Procedures Procedure Name Priority Date/Time Associated Diagnosis Comme nts FUNDUS PHOTOS - OU Routine 05/28/2019 9:26 AM Tributary Branch Results for this - BOTH EYES CDT Retinal Vein procedure are i n Occlusion With the results Macular Edema Right section. documented in this encounter Results Fundus Photos - OU - Both Eyes (05/28/2019 9:26 AM CDT) Specimen (Source) Anatomical Location Collection Method / Collectio n Time Received Time / Laterality Volume Narrative OPHTHALMOLOGY IMAGING EXAM - 06/02/19 20 12:58 PM CDT Right Eye Field of view is standard view. Fundus p hoto type obtained is Color. Left Eye Field of view is standard view. Fundus p hoto type obtained is Color. Notes C/w exam Poncho Do M.D. OPHTH PHOTOGRAPHY Performing Organization Address City/State/ZIP Code Phon e Number OPHTHALMOLOGY IMAGING EXAM documented in this encounter Visit Diagnoses Diagnosis Tributary Branch Retinal Vein Occlusion With Macular Edema Right documented in this encounter Additional Health Concerns Assessment Noted Time PHQ-9 Depression Total Score: 3 05/13/2013 2:06 PM TELEVISION PROGRAM DIRECTOR documented as of this encounter Care Teams Fork Lift Mechanic Relationship Specialty Start Date End Date Suhail Lemus M.D. PCP - General Family Medicine 09/19/[address] [place] [phone] documented as of this encounter
--- OUTSIDE RECORDS SUMMARY | 2021-12-22 21:55 | XMS_ITS | Encounter Summary ---
:1945 Author Organization [facility] Address [address] [place] [address] Care Team Providers Name Role Phone Suhail Lemus M.D. Primary Care Provider Encounter Details Date Type Department Care Team Description 05/29/2019 Orders Only Department of Jose Alberto Hernandes Tributary Branch Ophthalmology in V. Retinal Vein [place], [place] [address] [facility] Occlusion With [address] [place], [place] [phone] (Primary Dx) [phone] Social History Tobacco Use Types Packs/Day Years [...] Depression Total Score: 3 05/13/2013 2:06 PM FOLLOW UP SPECIALIST documented as of this encounter Care Teams Wallcovering Hanger Relationship Specialty Start Date End Date Suhail Lemus M.D. PCP - General Family Medicine 09/19/[address] [place] [phone] documented as of this encounter
--- OUTSIDE RECORDS SUMMARY | 2021-12-22 21:55 | XMS_ITS | Encounter Summary ---
:1945 Author Organization [facility] Address [address] [place] [address] Care Team Providers Name Role Phone Suhail Lemus M.D. Primary Care Provider Encounter Details Date Type Department Care Team Description 10/02/2017 Clinical Communication Department of Damir Hwang, Medicine, Roni Szymanski M.D. [facility] [place], in [address] [phone] Social History Tobacco Use Types Packs/Day Years Used Date Smoking Tobacco: Never Smokeless Tobacco: Never Alcohol Use Standard Drinks/Week Comments No 0 (1 standard drink = 0.6 oz pure alcoho l) Sex Assigned at Date Recorded Not on file documented as of this encounter Miscellaneous Notes Telephone Encounter - Janelle Raygoza, LSariahP.N. - 10/02/2017 3:01 PM CDT Patient reports that her left knee is bruised and painful. Recommended ice and tylenol per ED provider note from yesterday. Advised if no improvement an appointment in clinic will be needed. Telephone Encounter - Ngoc Baker - 10/02/2017 12:47 PM CDT Pt would like a call back to see what kind of cream they could use to help with leg pain. Please call them back at [phone]. documented in this encounter Plan of Treatment Not on filedocumented as of this encounter Visit Diagnoses Not on filedocumented in this encounter Additional Health Concerns Assessment Noted Time PHQ-9 Depression Total Score: 3 05/13/2013 2:06 PM FRAME HAND documented as of this encounter Care Teams Customs Patrol Officer Relationship Specialty Start Date End Date Suhail Lemus M.D. PCP - General Family Medicine 09/19/[address] [place] [phone] documented as of this encounter
--- OUTSIDE RECORDS SUMMARY | 2021-12-22 21:55 | XMS_ITS | Encounter Summary ---
:1945 Author Organization [facility] Address [address] [place] [address] Care Team Providers Name Role Phone Suhail Lemus M.D. Primary Care Provider Reason for Visit Reason Comments Epistaxis (Nose Bleed) Pt presents with 30 minute e pisode of epistaxis which has currently stopped. Pt report s having 4 episodes this week and has been having epistaxis si nce a child. Encounter Details Date Type Department Care Team Description 01/03/2019 Emergency [place] [facility] Yohan Jones, Epistaxis (Primary Dx) Department P.A.-C. [address] [place] [phone] (Wo rk) Social History Tobacco Use Types Packs/Day Years Used Date Smoking Tobacco: Never Smokeless Tobacco: Never Alcohol Use Standard Drinks/Week Comments No 0 (1 standard drink = 0.6 oz pure alcoho l) Sex Assigned at Date Recorded Not on file documented as of this encounter Last Filed Vital Signs Vital Sign Reading Time Taken Comments Blood Pressure 177/113 01/03/2019 8:37 PM CDT Pulse 85 01/03/2019 8:37 PM CDT Temperature 36.4 ??C (97.5 ??F) 01/03/2019 8:37 PM CDT Respiratory Rate 18 01/03/2019 8:37 PM CDT Oxygen Saturation 97% 01/03/2019 8:37 PM CDT Inhaled Oxygen Concentration - - Weight 130 kg (286 lb 2.5 oz) 01/03/2019 8:37 PM CDT Height - - Body Mass Index 52.06 10/26/2014 2:55 PM CDT documented in this encounter Discharge Instructions AttachmentsThe following attachments cannot be sent through Care Everywhere. Nosebleed Adult (Portuguese)documented in this encounter Medications at Time of Discharge Medication Sig Dispensed Refills Start Date End Date naproxen sodium 220 mg Take 1 capsule by 0 2011 capsule mouth. albuterol (PROVENTIL Inhale 2 puffs 4 0 8 12/30/2019 HFA,VENTOLIN HFA) 90 (four) times a day as mcg/actuation inhaler needed. HYDROcodone-acetaminophe Take 1-2 tablets by 0 09/14/2020 n (NORCO) 10-325 mg per mouth. tablet documented as of this encounter ED Notes Yohan Jones P.A.-C. - 01/03/2019 8:47 PM CDT SUBJECTIVE CHIEF COMPLAINT/REASON FOR VISIT Epistaxis (Nose Bleed) (Pt presents with 30 minute episode of epistaxis which has currently stopped.Pt reports having 4 episodes this week and has been having epistaxis since a child.) HISTORY OF PRESENT ILLNESS 73-year-old female presents with intermittent epistaxis for the last 4 days. Episodes usually stop with pressure over becoming more frequent and irritating therefore she came to the emergency room for evaluation. She is not currently on any blood thinners. REVIEW OF SYSTEMS Constitutional: Negative for chills and fever. HENT: Positive for nosebleeds. Negative for rhinorrhea. Skin: Negative for rash and wound. Hematological: Does not bruise/bleed easily. OBJECTIVE Initial Vitals Temp Pulse Heart Rate Resp BP SpO2 -- -- -- -- -- -- Pain Score -- PHYSICAL EXAMINATION Constitutional: No distress. HENT: Mouth/Throat: Mucous membranes are moist. Single spot of previous bleeding evident on the right anterior nasal septum Eyes: Conjunctivae are normal. Cardiovascular: Normal rate. Capillary refill: takes less than 3 seconds, Pulmonary/Chest: Effort normal. No respiratory distress. Neurological: She is alert and oriented to person, place, and time. Skin: Skin is warm and dry. No rash noted. Psychiatric: She has a normal mood and affect. Her behavior is normal. ASSESSMENT/PLAN Impression and Plan Silver nitrate applied to the anterior right nasal septum over the area of previous bleeding. Patient given nose clamp to use at home if she has further epistaxis. Home care instructions discussed, signs and symptoms that should prompt return to the emergency were discussed. Yohan Jones P.A.-C. 01/03/192048 documented in this encounter Plan of Treatment Not on filedocumented as of this encounter Visit Diagnoses Diagnosis Epistaxis - Primary documented in this encounter Administered Medications Inactive Administered Medications - up to 3 most recent administrations Medication Order MAR Action Action Date Dose Rate Site silver nitrate 75-25 % Given 01/03/2019 8:50 PM CDT 1 applicatio n topical stick 1 application (ARZOL) 1 application, topical, As needed, epistaxis, Starting on 01/03/19 at 2039 documented in this encounter Active and Recently Administered Medications Times are shown in CDT. PRN Medication Order 01/01/2019 01/02/2019 01/03/2019 silver nitrate 75-25 % topical stick 1 application (ARZOL) 2049 (Given - Provider: Jasson Carmona R.N. - Comment: by provider) 1 application, topical, As needed, epistaxis, Starting Sat 01/03 at 2039 documented in this encounter Additional Health Concerns Assessment Noted Time PHQ-9 Depression Total Score: 3 05/13/2013 2:06 PM LITHOGRAPHIC PHOTOGRAPHER documented as of this encounter Care Teams Suction Drum Drier Operator Relationship Specialty Start Date End Date Suhail Lemus M.D. PCP - General Family Medicine 09/19/[address] [place] [phone] documented as of this encounter
--- OUTSIDE RECORDS SUMMARY | 2021-12-22 21:55 | XMS_ITS | Encounter Summary ---
:1945 Author Organization [facility] Address [address] [place] [address] Care Team Providers Name Role Phone Suhail Lemus M.D. Primary Care Provider Reason for Referral Outpatient (Routine) - Closed Specialty Diagnoses / Procedures Referred By Contact Refer red To Contact Family Medicine Diagnoses Hypertension Essential Primary Lise Wang, JORDENS [facility] [address] [place] [phone] Referral ID Status Reason Start Date Expiration Date Visits Requ ested Visits Authorized [id number] Closed 06/04/2019 06/03/2020 1 1 Scheduling Instructions 30 min visit Reason for Visit Reason Comments Back Pain lower back pain has been goi ng on for a year, yesterday she couldn't sleep at all because it would both er her, she fell this winter twice, recently lost eye sight in right eye- stats that she can see a little and was bleeding in the back of the eye-they said it was caused from high blood pressure-stats she needs to be on a blood pressure med, tried OTC meds and icy hot, awhile back she had kidney stones Appointment Request (Routine) - Closed Specialty Diagnoses / Procedures Referred By Contact Refer red To Contact Family Medicine Referral ID Status Reason Start Date Expiration Date Visits Requ ested Visits Authorized [id number] Closed 07/21/2018 07/21/2019 1 1 Encounter Details Date Type Department Care Team Description 06/04/2019 Office Visit Department of [facility] Lise Wang, Sebas ertension Essential Primary (Primary Dx); Roni [place] Hilda, PDavid Segoviajose [facility], in [address] [phone] Social History Tobacco Use Types Packs/Day Years Used Date Smoking Tobacco: Never Smokeless Tobacco: Never Alcohol Use Standard Drinks/Week Comments No 0 (1 standard drink = 0.6 oz pure alcoho l) Sex Assigned at Date Recorded Not on file documented as of this encounter Last Filed Vital Signs Vital Sign Reading Time Taken Comments Blood Pressure 163/77 06/04/2019 8:32 AM CDT Pulse 77 06/04/2019 8:32 AM CDT Temperature 36.9 ??C (98.4 ??F) 06/04/2019 8:32 AM CDT Respiratory Rate 18 06/04/2019 8:32 AM CDT Oxygen Saturation 98% 06/04/2019 8:32 AM CDT Inhaled Oxygen Concentration - - Weight 129 kg (283 lb 11.7 oz) 06/04/2019 8:32 AM CDT Height 156 cm (5' 1.42) 06/04/2019 8:32 AM CDT Body Mass Index 52.89 06/04/2019 8:32 AM CDT documented in this encounter Patient Instructions Patient InstructionsGarLise livingston P.A.-C. - 06/04/2019 8:00 AM CDT Check blood pressure 3-4 times per week, write them down please We will call you in 2-3 weeks to see how they've been running Medrol dosepack for back pain - 6 days - alternate ice/heat, tylenol is okay (not ibuprofen with prednisone) -8 extra strength tylenol per day (1000mg every 6 hours) Return to clinic in 3 months documented in this encounter Progress Notes Lise Wang P.A.-C. - 06/04/2019 8:00 AM CDT SUBJECTIVE CHIEF COMPLAINT/REASON FOR VISIT Kristen Pederson is a 73 y.o. female who presents for evaluation of Back Pain (lower back pain has been going on for a year, yesterday she couldn't sleep at all because it would bother her, shefell this winter twice, recently lost eye sight in right eye-stats that she can see a little and wasbleeding in the back of the eye-they said it was caused from high blood pressure-stats she needs to b e on a blood pressure med, tried OTC meds and icy hot, awhile back she had kidney stones). HISTORY OF PRESENT ILLNESS Kristen is a very pleasant 73-year-old female presents for a few medical issues today. She has a past medical history notable for essential hypertension, recent retinal vein occlusion, osteoarthritis, obstructive sleep apnea, seasonal allergies and obesity. 1. Low back pain Patient endorses chronic low back pain. She states over the last few weeks she has noticed this getting progressively worse. She describes her pain as a dull ache in the low back which starts over her left buttocks and radiates down to approximately her knee. She states the pain is very irritating andrates it at a 4 or 5/10. She takes ibuprofen occasionally, maybe once a day. She denies any bowel orbladder incontinence, no saddle anesthesia. 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 2. Elevated blood pressure Patient has a history of essential hypertension. She states she was recently started on a new medication by provider at [facility] in [place]. She is unsure of what this is but believes it is 10 mg. Shetakes it intermittently and has not yet had a dose this morning. Her blood pressure is elevated in clinic at 163/77. Most recent kidney function testing was done in early April and normal. REVIEW OF SYSTEMS A brief review of systems was negative except for that mentioned in the history of present of illness. CURRENT MEDICATIONS Current Outpatient Medications Medication Sig ??? albuterol (PROVENTIL HFA,VENTOLIN HFA) 90 mcg/actuation inhaler Inhale 2 puffs 4 (four) times a day as needed. ??? HYDROcodone-acetaminophen (NORCO) 10-325 mg per tablet Take 1-2 tablets by mouth. ??? naproxen sodium 220 mg capsule Take 1 capsule by mouth. ??? nystatin (NYSTOP) 100,000 unit/gram powder Apply 1 strip topically. ??? PROAIR HFA 90 mcg/actuation inhaler INHALE 2 PUFFS EVERY 4 HOURS NEEDED FOR WHEEZING OR SHORTNESS OF BREATH ??? albuterol (PROVENTIL HFA,VENTOLIN HFA) 90 mcg/actuation inhaler Inhale 2 puffs every 4 (four) hours as needed (wheezing, cough, or shortness of breath). ??? amLODIPine (NORVASC) 10 mg tablet Take 1 tablet (10 mg total) by mouth daily. ??? artificial tears,hypromellose, (ISOPTO TEARS) 0.3 % ophthalmic solution 1 drop 3 (three) times aday as needed. ??? methylPREDNISolone (MEDROL DOSEPACK) 4 mg tablet Take as directed on package. ALLERGIES/CONTRAINDICATIONS No Known Allergies OBJECTIVE PHYSICAL EXAMINATION Vital Signs: BP (!) 163/77 (BP Location: Left arm, Patient Position: Sitting, Cuff Size: Large) Pulse 77 Temp 36.9 ??C (Temporal) Resp 18 Ht 156 cm Wt 129 kg SpO2 98% BMI 52.89 kg/m?? Body mass index is 52.89 kg/m??. General: This patient is alert and in no acute distress. Musculoskeletal: Grossly intact, no deformities are noted. Pain to palpation over left SI joint and sciatic nerve. Pain radiates down to the posterior knee. 5/5 strength in bilateral lower extremities. Skin: Normal color, temperature and moisture, no rashes or lesions are noted. Psych: Behavior, mood, affect, cognition and insight are all appropriate. DIAGNOSTICS Results for orders placed or performed in visit on 09/30/17 HCV Ab Scrn w/Reflex to HCV PCR, Serum Result Value Ref Range HCV Ab Screen, [...] ASSESSMENT / PLAN 1. Hypertension Essential Primary Patient is currently taking amlodipine 10 mg intermittently. Recommended she start taking this on a more consistent basis. I would like her to take her blood pressure at home 3-4 times per week and write them down. Her goal blood pressure is 140/90. We will call her in a few weeks to see what her blood pressures have been. I would like to see her back in clinic in 3 months. - Family Medicine office visit (clinic); Future 2. Sciatica Left As we have a palomino virus pandemic, physical therapy visits have been limited. We will trial a Medrol Dosepak with Tylenol. Recommended heat and ice as well. Gentle stretching. If she does not have improvement with this I would like her to call the clinic back for additional recommendations. Patient was instructed to follow up in [...] Name Type Priority Associated Diagnoses Order S [facility] Family Medicine Outpatient Referral Routine Hypertension Expec arabella: office visit Essential Primary 09/04/2019 (clinic) (Approximate), Expires: 06/03/2022 documented as of this encounter Visit Diagnoses Diagnosis Hypertension Essential Primary - Primary Sciatica Left documented in this encounter Additional Health Concerns Assessment Noted Time PHQ-9 Depression Total Score: 3 05/13/2013 2:06 PM TECHNOLOGY COORDINATOR documented as of this encounter Care Teams Temporary Data Entry Clerk Relationship Specialty Start Date End Date Suhail Lemus M.D. PCP - General Family Medicine 09/19/[address] [place] [phone] documented as of this encounter
--- OUTSIDE RECORDS SUMMARY | 2021-12-22 21:55 | XMS_ITS | Encounter Summary ---
:1945 Author Organization [facility] Address [address] [place] [address] Care Team Providers Name Role Phone Suhail Lemus M.D. Primary Care Provider Reason for Visit Reason Comments Leg Pain C/o left leg pain due to a f all on 10/01/17. Xrays negative. Bruising and swelling has increased. Encounter Details Date Type Department Care Team Description 10/06/2017 Emergency [facility] Giuseppe Trujillo, Pain Lower Leg Left Department P.A.-C. (Primary Dx) [address] [address] [place], [place] [phone] Social History Tobacco Use Types Packs/Day Years Used Date Smoking Tobacco: Never Smokeless Tobacco: Never Alcohol Use Standard Drinks/Week Comments No 0 (1 standard drink = 0.6 oz pure alcoho l) Sex Assigned at Date Recorded Not on file documented as of this encounter Last Filed Vital Signs Vital Sign Reading Time Taken Comments Blood Pressure 181/90 10/06/2017 8:03 PM CDT Pulse 95 10/06/2017 7:38 PM CDT Temperature 37.3 ??C (99.1 ??F) 10/06/2017 7:38 PM CDT Respiratory Rate 18 10/06/2017 7:38 PM CDT Oxygen Saturation 97% 10/06/2017 7:38 PM CDT Inhaled Oxygen Concentration - - Weight 135 kg (297 lb 9.9 oz) 10/06/2017 7:39 PM CDT Height - - Body Mass Index 54.15 10/26/2014 2:55 PM CDT documented in this encounter Discharge Instructions AttachmentsThe following attachments cannot be sent through Care Everywhere. Contusion (Irish)documented in this encounter Medications at Time of Discharge Medication Sig Dispensed Refills Start Date End Date naproxen sodium 220 mg Take 1 capsule by 0 2011 capsule mouth. albuterol (VENTOLIN Inhale 2 puffs every 4 8 g 0 09/1512/12/2017 HFA) 90 mcg/actuation (four) hours as needed inhaler for wheezing or shortness of breath. amLODIPine (NORVASC) 5 Take 1 tablet (5 mg 30 tablet 11 09/1504/14/2018 mg tablet total) by mouth daily. HYDROcodone-acetaminoph Take 1-2 tablets by 0 09/201109/14/2020 en (NORCO) 10-325 mg mouth. per tablet documented as of this encounter ED Notes Giuseppe Trujillo P.A.-C. - 10/06/2017 8:07 PM CDT Images from the original note were not included. SUBJECTIVE CHIEF COMPLAINT/REASON FOR VISIT Leg Pain (C/o left leg pain due to a fall on 10/01/17. Xrays negative. Bruising and swelling has increased.) HISTORY OF PRESENT ILLNESS 72-year-old female returns to the ER with complaints of left lower leg pain. The patient fell onto her left knee several days ago and was evaluated in the emergency department at that time where x-rayswere performed and were found to be within normal limits. Patient states that since that time she has has had increased swelling to her left lower extremities and increased pain since that time. She denies pain in the left popliteal fossa or overlying her left gastrocnemius. Patient is able to ambulate. Nothing else seems to make the symptoms better or worse. REVIEW OF SYSTEMS Constitutional: Negative for appetite change and fever. HENT: Negative for ear pain, rhinorrhea and sore throat. Eyes: Negative for visual disturbance. Respiratory: Negative for cough, shortness of breath and wheezing. Cardiovascular: Negative for chest pain. Gastrointestinal: Negative for abdominal pain, diarrhea and vomiting. Genitourinary: Negative for dysuria and frequency. Musculoskeletal: Negative for back pain. Skin: Negative for rash. Neurological: Negative for headaches. All other systems reviewed and are negative. OBJECTIVE Initial Vitals [10/06/17 1938] Temperature Pulse Rate Heart Rate Resp Rate Blood Pressure SpO2 37.3 ??C 95 -- 18 (!) 209/86 97 % Pain Score 5 - Moderate pain PHYSICAL EXAMINATION Constitutional: She appears well-developed and well-nourished. HENT: Head: Normocephalic and atraumatic. Nose: Nose normal. Mouth/Throat: Oropharynx is clear and moist. Mucous membranes are moist. Neck: Neck supple. Cardiovascular: Normal rate, regular rhythm, S1 normal, S2 normal and normal heart sounds. Pulmonary/Chest: Effort normal and breath sounds normal. Abdominal: Soft. Bowel sounds are normal. There is no tenderness. Musculoskeletal: Legs: Sherman sign is negative. Patient does not have swelling or tenderness to palpation of the popliteal fossa or overlying the gastrocnemius. Neurological: She is alert and oriented to person, place, and time. Skin: Skin is warm. Nursing note and vitals reviewed. ASSESSMENT/PLAN Impression and Plan Sherman sign is negative. Patient does not have swelling or tenderness to palpation of the popliteal fossa or overlying the gastrocnemius. Patient is at risk for DVT but her signs and symptoms are not consistent with DVT in emergency department this evening. I am unable to obtain ultrasound this time ofnight but have placed an order for ultrasound to be performed tomorrow morning to rule out DVT. Patient's x-rays show no acute fractures. It appears as the patient is dealing with soft tissue injury and I have instructed the patient to elevate her leg, she can take Ultram as needed for pain, she is encouraged to use ice, she is encouraged to rest. Orthopedic referral has been placed for patient evalua tion. Return ER warnings given. Patient discharged in good condition.. Reviewed and summarized previous medical records including: Documentation from previous visits. Final Diagnoses: as of Oct 07 2005 Pain Lower Leg Left Giuseppe Trujillo P.A.-C. 10/07/172005 Jeramie Sparks R.N. - 10/06/2017 7:39 PM CDT C/o left leg pain due to a fall on 10/01/17. Xrays negative. Bruising and swelling has increased. 5/10 at rest but 10/10 pain if she stands. Taking Aleve. CMS intact distally. Lower left leg is warm to touch. Jeramie Sparks R.N. 10/06/171938 Jeramie Sparks R.N. 10/06/171939 Jeramie Sparks R.N. 10/06/171940 documented in this encounter Plan of Treatment Not on filedocumented as of this encounter Visit Diagnoses Diagnosis Pain Lower Leg Left - Primary documented in this encounter Additional Health Concerns Assessment Noted Time PHQ-9 Depression Total Score: 3 05/13/2013 2:06 PM CREDIT ANALYST documented as of this encounter Care Teams Consumer Science Teacher Relationship Specialty Start Date End Date Suhail Lemus M.D. PCP - General Family Medicine 09/19/[address] [place] [phone] documented as of this encounter
--- OUTSIDE RECORDS SUMMARY | 2021-12-22 21:55 | XMS_ITS | Encounter Summary ---
:1945 Author Organization [facility] Address [address] [place] [address] Care Team Providers Name Role Phone Suhail Lemus M.D. Primary Care Provider Reason for Visit Reason Comments URI SOB, cough, nasal drainage, Thick mucous, discuss medicaiton, patient declined to weigh Appointment Request (Routine) - Closed Specialty Diagnoses / Procedures Referred By Contact Refer red To Contact Family Medicine Referral ID Status Reason Start Date Expiration Date Visits Requ ested Visits Authorized [id number] Closed 04/14/2018 04/14/2019 1 Encounter Details Date Type Department Care Team Description 04/14/2018 Office Visit Department of Suhail Hwang Si nusitis (Primary Dx) Medicine, [facility], in [address] [phone] Social History Tobacco Use Types Packs/Day Years Used Date Smoking Tobacco: Never Smokeless Tobacco: Never Alcohol Use Standard Drinks/Week Comments No 0 (1 standard drink = 0.6 oz pure alcoho l) Sex Assigned at Date Recorded Not on file documented as of this encounter Last Filed Vital Signs Vital Sign Reading Time Taken Comments Blood Pressure 188/81 04/14/2018 10:39 AM LAYER OFF Pulse 94 04/14/2018 10:39 AM LAYER OFF Temperature 36.6 ??C (97.9 ??F) 04/14/2018 10:39 AM LAYER OFF Respiratory Rate 24 04/14/2018 10:39 AM LAYER OFF Oxygen Saturation 97% 04/14/2018 10:39 AM LAYER OFF Inhaled Oxygen Concentration - - Weight - - Height - - Body Mass Index - - documented in this encounter Progress Notes Suhail Lemus M.D. - 04/14/2018 11:00 AM CST SUBJECTIVE CHIEF COMPLAINT / REASON FOR VISIT Kristen is a 72 y.o. female who presents for evaluation of URI (SOB, cough, nasal drainage, Thick mucous, discuss medicaiton, patient declined to weigh). HISTORY OF PRESENT ILLNESS Kristen is a pleasant 72 y.o. female who presents to clinic today with concerns of sinus congestion, pain and thick purulent drainage over the last 2 weeks. Intermittent chills and fatigue reported. Coughintermittent. No shortness of breath, wheezing, chest pain or palpitations. Similar occurrence 2 years ago treated successfully at that time. She has been using izis-qvp-upaxurm remedies with mild results. The following portions of the patient's history were reviewed and updated as appropriate: allergies,current medications, family history, medical history, social history, surgical history and problem list. Brief Review of Systems: A brief review of systems was negative except for that mentioned in the history of present of illness. Current Outpatient Medications Medication Sig ??? doxycycline hyclate (VIBRAMYCIN) 100 mg capsule Take 1 capsule (100 mg total) by mouth 2 (two) times a day for 10 days. ??? hydroCHLOROthiazide (HYDRODIURIL) 25 mg tablet Take 25 mg by mouth. No Known Allergies OBJECTIVE PHYSICAL EXAM BP (!) 188/81 Pulse 94 Temp 36.6 ??C (Temporal) Resp 24 SpO2 97% There is no height or weight on file to calculate BMI. GENERAL: Patient is in no distress. Capable of full communication without difficulty. Patient is polite and cooperative. HEENT: Normocephalic. EOMI, PERRL, Canals patent, TMs normal. Oropharynx without lesion of mucosa. Pharyngeal rises symmetrically without exudate. Nares patent with boggy mucosa. Thick rhinorrhea present. Tenderness to palpation over the maxillary sinuses. Left greater than right. HEART: Regular rate and rhythm. No murmurs, gallops or rubs noted. LUNGS: Clear to auscultation bilaterally. No expiratory wheeze. No accessory muscles of respiration noted. PSYCH: Affect is appropriate DIAGNOSTICS: No visits with results within 7 Day(s) from this visit. Latest known visit with results is: Office Visit on 09/30/2017 Component Date Value Ref Range Status ??? Result 10/06/2017 Negative Not Applicable Final ??? Potassium, S 09/30/2017 4.2 3.6 - 5.2 mmol/L Final ??? Sodium, S 09/30/2017 142 135 - 145 mmol/L Final ??? Chloride, S 09/30/2017 103 98 - 107 mmol/L Final ??? Bicarbonate, S 09/30/2017 29 22 - 29 mmol/L Final ??? Anion Gap 09/30/2017 10 7 - 15 Final ??? Bld Urea Nitrog(BUN), S 09/30/2017 14 6 - 21 mg/dL Final ??? Creatinine, S 09/30/2017 0.88 0.59 - 1.04 mg/dL Final ? ? eGFR-Non Black 09/30/2017 66 >=60 mL/min/BSA Final ? ? eGFR-Black 09/30/2017 76 >=60 mL/min/BSA Final ??? Calcium, Total 09/30/2017 9.4 8.8 - 10.2 mg/dL Final ??? Glucose, S 09/30/2017 124 70 - 140 mg/dL Final ??? Protein, Total, S 09/30/2017 7.0 6.3 - 7.9 g/dL Final ??? Albumin, S 09/30/2017 3.9 3.5 - 5.0 g/dL Final ??? Aspartate Aminotransferase (AST), S 09/30/2017 34 8 - 43 U/L Final ??? Alkaline Phosphatase, S 09/30/2017 123 55 - 142 U/L Final ??? Alanine Aminotransferase (ALT), S 09/30/2017 33 7 - 45 U/L Final ? ? Bilirubin, Total, S 09/30/2017 0.3 <=1.2 mg/dL Final ??? HCV Ab Screen, S 09/30/2017 Nonreactive Nonreactive Final ASSESSMENT / PLAN #1 Sinusitis Symptoms consistent with acute sinusitis viral versus bacterial. Will prescribe patient doxycycline for a 10 day course. Continue with home remedies to include nasal saline irrigation and Flonase. Follow-up in 5-7 days if symptoms do not improve. Patient was instructed to follow up in [...] plan. Patient/Child/Caregiver expressed understanding of the content. Bryce Lemus M.D. R OFF documented in this encounter Plan of Treatment Not on filedocumented as of this encounter Visit Diagnoses Diagnosis Sinusitis - Primary documented in this encounter Additional Health Concerns Assessment Noted Time PHQ-9 Depression Total Score: 3 05/13/2013 2:06 PM LAYER OFF documented as of this encounter Care Teams House Mover Relationship Specialty Start Date End Date Suhail Lemus M.D. PCP - General Family Medicine 09/19/[address] [place] [phone] documented as of this encounter
--- OUTSIDE RECORDS SUMMARY | 2021-12-22 21:55 | XMS_ITS | Encounter Summary ---
:1945 Author Organization [facility] Address [address] [place] [address] Care Team Providers Name Role Phone Suhail Lemus M.D. Primary Care Provider Encounter Details Date Type Department Care Team Description 08/05/2018 Clinical Communication Department of Masha Polanco Dermatology in [place] [place], [place] [phone] [address] [facility] (Work) [place] [address] Social History Tobacco Use Types Packs/Day Years Used Date Smoking Tobacco: Never Smokeless Tobacco: Never Alcohol Use Standard Drinks/Week Comments No 0 (1 standard drink = 0.6 oz pure alcoho l) Sex Assigned at Date Recorded Not on file documented as of this encounter Miscellaneous Notes Telephone Encounter - Masha Carmona R.N. - 08/05/2018 3:22 PM CDT Patient was called by RN about azelaic acid cream. Dr. Harris's note with options placed in private secretary box to mail per patient's request. Telephone Encounter - Azucena Harris M.D. - 08/05/2018 12:24 PM CDT This is available over the counter. I gave the patient multiple over the counter azelaic acid options to try: The Ordinary, Brittny and Glytone Enhance Brightening Complex.I have had multiple patients report that prescription azelaic acid is 300-400 dollars, so I prefer over the counter options for them. Telephone Encounter - Masha Carmona R.N. - 08/05/2018 12:17 PM CDT Patient's pharmacy called. She is to use metrocream with azelaic acid. She was told she can obtain azelaic acid over the counter but pharmacist didn't think it's available OTC, prescription is needed Dr. Harris notified. documented in this encounter Plan of Treatment Not on filedocumented as of this encounter Visit Diagnoses Not on filedocumented in this encounter Additional Health Concerns Assessment Noted Time PHQ-9 Depression Total Score: 3 05/13/2013 2:06 PM LAND CLASSIFIER documented as of this encounter Care Teams Zig Zag Stitcher Relationship Specialty Start Date End Date Suhail Lemus M.D. PCP - General Family Medicine 09/19/[address] [place] [phone] documented as of this encounter
--- OUTSIDE RECORDS SUMMARY | 2021-12-22 21:55 | XMS_ITS | Encounter Summary ---
:1945 Author Organization [facility] Address [address] [place] [address] Care Team Providers Name Role Phone Suhail Lemus M.D. Primary Care Provider Reason for Visit Reason Comments Patient wants more information about health situation Encounter Details Date Type Department Care Team Description 06/30/2019 Clinical Department of Ernestina, Patient wants more Communication Ophthalmology in [place] Reich M.D. information about [place], [place] [address] [facility] health situation [address] [place] [phone] Social History Tobacco Use Types Packs/Day Years Used Date Smoking Tobacco: Never Smokeless Tobacco: Never Alcohol Use Standard Drinks/Week Comments No 0 (1 standard drink = 0.6 oz pure alcoho l) Sex Assigned at Date Recorded Not on file documented as of this encounter Miscellaneous Notes Telephone Encounter - Poncho Do M.D. - 07/01/2019 4:43 PM CDT I spoke with her and answered all of her questions. She is frustrated that she was unable to make the decision herself to cut back on work hours, which is understandable. We discussed trying to adjust to her new situation and it may work out well for her. She is pleased to report that her vision improved following the last injection. Telephone Encounter - Lise Wang P.A.-C. 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 Risk factors for this include poorly controlled hypertension. Her blood pressure has been poorly controlled for some time for which she attributes to poor compliance. I have asked her to obtain a blood pressure cuff and write these pressures on for better monitoring as she made need a second agent. She has obtained a blood pressure cuff but was unable to tell me what her pressures have been. At this time, I discussed with her and her daughter that it is probably best to cut down on her hours as she is not getting adequate sleep, under a lot of stress and has poorly controlled blood pressure. Her daughter, Vijaya, also reassured her that she could have contact with her granddaughter at any time outside of her working hours as well. She was extremely upset regarding this recommendation. 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 She is not getting much sleep during the shift or during the day. She is also, per her report, caring for another daughter who is an alcoholic. I advised that her and her daughter sit down to try to make a compromised schedule that would put her health at the forefront. Also discussed with her that she ultimately needs to be well in order to take care of others. Telephone Encounter - Yazmin Yoo - 06/30/2019 10:34 AM CDT I called patient back. She is extremely upset that her daughter will only let her watch her granddaughter three nights per week now. She says her daughter is telling her that she had a stroke, which she says no one ever told her about. I do see that she had a very lengthy discussion with Lise Wang from [place] about this issue (copied her on this note), but she is extremely upset and wants tospeak to Dr. Do about this. Telephone Encounter - Ana Maria Go - 06/30/2019 8:27 AM CDT Can you please call Ms Pederson back at your earliest convenience? She had some questions regardingher visit with AJB that I couldn't answer. Thank you! Ana Maria documented in this encounter Plan of Treatment Not on filedocumented as of this encounter Visit Diagnoses Not on filedocumented in this encounter Additional Health Concerns Assessment Noted Time PHQ-9 Depression Total Score: 3 05/13/2013 2:06 PM GAS BURNER OPERATOR documented as of this encounter Care Teams Strategic Planning Director Relationship Specialty Start Date End Date Suhail Lemus M.D. PCP - General Family Medicine 09/19/[address] [place] [phone] documented as of this encounter
--- OUTSIDE RECORDS SUMMARY | 2021-12-22 21:55 | XMS_ITS | Encounter Summary ---
:1945 Author Organization [facility] Address [address] [place] [address] Care Team Providers Name Role Phone Suhail Lemus M.D. Primary Care Provider Encounter Details Date Type Department Care Team Description 05/28/2019 Procedure visit Department of Chauncey Do M.D. [address] [place] [phone] [facility] in [place] Wing R.N. [address] [place] [phone] Retinal Vein [place], [place] Occlusion With [address] [facility] Macular Edema Right [place], [place] (Primary Dx) [phone] Social History Tobacco Use Types Packs/Day Years Used Date Smoking Tobacco: Never Smokeless Tobacco: Never Alcohol Use Standard Drinks/Week Comments No 0 (1 standard drink = 0.6 oz pure alcoho l) Sex Assigned at Date Recorded Not on file documented as of this encounter Progress Notes Sepideh Wing R.N. - 05/28/2019 9:00 AM CDT Patient was assessed by RN for Fluorescein Angiogram or Fluorescein/Indocyanine Green Angiogram. REQUIRED EDUCATION completed: * Ensure patients who received Fluorescein are aware that they may have bright yellow urine following the test for up to 48 hours. * Recommend patient to have someone else drive patient home or wait several hours before driving home. Patient fits discharge criteria; IV removed. Dr. Do is the authorized prescriber who directed the protocol. Patient creatinine is: 0.91 Adverse reactions noted: None. *Patient provided nursing with verbal authorization to photograph both eyes. documented in this encounter Plan of Treatment [...] MAR Action Action Date Dose Rate Site fluorescein 500 mg/5 mL (10 %) Given 05/28/2019 10:53 AM CDT 500 mg injection 500 mg (AK-FLUOR/FLUORESCEIN) 500 mg, intravenous, Once, On 04/29/19 at 1345, For 1 dose sodium chloride 0.9 % injection 3 mL Given 05/28/2019 10:53 AM CDT 3 mL 3 mL, intravenous, As needed, line care, Peripheral Intravenous Catheter and Rapid Infusion Catheter, Starting on Elda 05/28/19 at 0939, For 1 day, Prior to and following infusion and between multiple consecutive infusions. Given 05/28/2019 9:50 AM CDT 3 mL documented in this encounter Additional Health Concerns Assessment Noted Time PHQ-9 Depression Total Score: 3 05/13/2013 2:06 PM NIGHT NURSE documented as of this encounter Care Teams Administrative Dietitian Relationship Specialty Start Date End Date Suhail Lemus M.D. PCP - General Family Medicine 09/19/[id number] [phone] documented as of this encounter
--- OUTSIDE RECORDS SUMMARY | 2021-12-22 21:55 | XMS_ITS | Encounter Summary ---
:1945 Author Organization [facility] Address [address] [place] [address] Care Team Providers Name Role Phone Suhail Lemus M.D. Primary Care Provider Reason for Visit Appointment Request (Routine) - Closed Specialty Diagnoses / Procedures Referred By Contact Refer red To Contact Dermatology Referral ID Status Reason Start Date Expiration Date Visits Requ ested Visits Authorized [id number] Closed 07/17/2018 07/17/2019 1 1 Encounter Details Date Type Department Care Team Description 07/30/2018 Comprehensive Visit Department of Nisha De La Torre (Primary Dx); Dermatology in [facility], Keratosis Anastacio orrheic; [place], [place] Deejay Schmidt M.D. Keratosis Seborrheic Inflamed; [address] [facility] [place] [phone] Social History Tobacco Use Types Packs/Day Years Used Date Smoking Tobacco: Never Smokeless Tobacco: Never Alcohol Use Standard Drinks/Week Comments No 0 (1 standard drink = 0.6 oz pure alcoho l) Sex Assigned at Date Recorded Not on file documented as of this encounter Consult Notes Azucena Harris M.D. - 07/30/2018 4:20 PM CDT DERMATOLOGY CONSULT Supervised by: Dr. Deejay Rose ([id number]). Patient seen and discussed with supervising therapeutic consultant, Dr. Cameron, who evaluated the patient and concurs with the assessment and plan. Correspondence to me. REFERRAL No ref. provider found CHIEF COMPLAINT Lesion on flank, redness of face HISTORY OF THE PRESENT ILLNESS Kristen Pederson is a pleasant 72 y.o. female who presents evaluation of a dark spot on the right flank as well as redness of the face. Patient noted a dark brown rapidly growing lesion on the right flank and she was concerned it was a skin cancer. She notes she caught it with her fingernail and it bled. The patient also has persistent redness of the face. She tried a facial scrub today but it did not help. She is wondering what she can do for her skin. She anticipates a wedding this summer. Lastly, she is interesting in pursuing cosmetic treatments for her wrinkles and fat loss of the cheeks. She would like to treat herself this summer and is interested in an appointment. REVIEW OF SYSTEMS Negative. PAST MEDICAL HISTORY Negative for skin cancer FAMILY HISTORY Negative for skin cancer PHYSICAL EXAM Constitutional: Awake, alert, in no acute distress, and with appropriate affect. Skin: Limited skin examination of the back, flanks, scalp and face was performed per patient's request. Involving the right flank is a dark brown to black waxy stuck on plaque consistent with a seborrheic keratosis. Involving the nose and central cheeks there are scattered papules and pustules over a background of erythema. IMPRESSION AND PLAN #Rosacea, papulopustular We discussed the nature, pathogenesis and treatment options for this condition. The patient was given a pamphlet on rosacea as well. I discussed that sensitive skin cares as the mainstay of rosacea treatment. I gave her a sample morning and evening regimen to use for her skin, using MetroCream as our initial treatment of choice for the morning and azelaic acid (she can find affordable versions over the counter) in the evening. Also recommended the patient use Afrin nasal spray, [id number] for reduction of redness for special occasions. She may also consider a green tinted facial primer prior to applying her makeup to help combat redness. AM: - Cetaphil gentle facial cleanser - MetroCream - CeraVe moisturizing cream - Sunscreen of choice PM: - Cetaphil gentle facial cleanser - Azelaic acid - CeraVe moisturizing cream #Inflamed seborrhec keratoses The benign nature of this lesion(s) was discussed with the patient. Given the inflamed imz1tcy of this lesion(s), its treatment is medically indicated. We treated a total of 1 lesion(s) with one 20-second freeze-thaw cycle of liquid nitrogen cryotherapy. The patient tolerated the procedure well. Aftercare instructions were provided in written and verbal form to the patient. Should any of these lesions recur, the patient should return for further evaluation. #Cosmetic concerns Patient has buccal fat loss related to aging in the cheeks as well as static rhytids. Could be a candidate for mid-facial fillers or possibly resurfacing with CO2 laser. Will have the patient see Dr. Miramontes later this summer for consultation and definitive recommendations. PATIENT EDUCATION Ready to learn. No apparent learning barriers were identified. Learning preferences include listening. Explained diagnosis and treatment plan; patient/guardian of patient expressed understanding of thecontent. Associated attestation - Deejay Rebolledo M.D. - 07/31/2018 1:38 PM CDT I saw and evaluated the patient, participating in the parra portions of the service. I reviewed the resident???s note. I agree with the resident???s findings and plan. I was present for the critical portion and immediately available for the entire procedure. 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 PCP - General Family Medicine 09/19/[address] [place] [phone] documented as of this encounter
--- OUTSIDE RECORDS SUMMARY | 2021-12-22 21:55 | XMS_ITS | Encounter Summary ---
:1945 Author Organization [facility] Address [address] [place] [address] Care Team Providers Name Role Phone Suhail Lemus M.D. Primary Care Provider Reason for Referral Outpatient (Routine) - Closed Specialty Diagnoses / Procedures Referred By Contact Refer red To Contact Ophthalmology Poncho Do M.D. [facility] [address] [place] [phone] Referral ID Status Reason Start Date Expiration Date Visits Requ ested Visits Authorized [id number] Closed 06/15/2019 06/14/2020 1 1 Encounter Details Date Type Department Care Team Description 06/15/2019 Orders Only Department of Ophthalmology in [facility] [address] [place] [address] [place] [address] [place], [place] [phone] Social History Tobacco Use Types Packs/Day Years Used Date Smoking Tobacco: Never Smokeless Tobacco: Never Alcohol Use Standard Drinks/Week Comments No 0 (1 standard drink = 0.6 oz pure alcoho l) Sex Assigned at Date Recorded Not on file documented as of this encounter Plan of Treatment Scheduled Referrals Name Type Priority Associated Order Schedule Diagnoses Ophthalmology office Outpatient Referral Routine Expected: visit (clinic) 06/15/2019 (Approximate), Expires: 06/14/2022 documented as of this encounter Visit Diagnoses Not on filedocumented in this encounter Additional Health Concerns Assessment Noted Time PHQ-9 Depression Total Score: 3 05/13/2013 2:06 PM 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 PCP - General Family Medicine 09/19/[address] [place] [phone] documented as of this encounter
--- OUTSIDE RECORDS SUMMARY | 2021-12-22 21:55 | XMS_ITS | Encounter Summary ---
:1945 Author Organization [facility] Address [address] [place] [address] Care Team Providers Name Role Phone Suhail Lemus M.D. Primary Care Provider Reason for Visit Reason Comments Med Refill Encounter Details Date Type Department Care Team Description 05/30/2018 Refill Department of Family Medicine, Suhail Ragland M.D. Med Refill [facility], [id number] [place] [phone] [place], [place] [address] [phone] Social History Tobacco Use Types Packs/Day Years Used Date Smoking Tobacco: Never Smokeless Tobacco: Never Alcohol Use Standard Drinks/Week Comments No 0 (1 standard drink = 0.6 oz pure alcoho l) Sex Assigned at Date Recorded Not on file documented as of this encounter Miscellaneous Notes Telephone Encounter - Suhail Lemus M.D. - 06/16/2018 8:05 AM CDT Recommend patient be seen if she develops symptoms. Telephone Encounter - Ngoc Jonas - 05/30/2018 2:29 PM CDT Images from the original note were not included. Nurse Review: Pharmacy Communication- FYI Provider: Bryce Lemus M.D. Pharmacy: [facility] [place], [place] Pharmacy Comment: Pharmacist recommends prophylactic treatment for Kristen. Pharmacy protocol doesn't allow for us to write prophylactic rx. She lives with her daughter. Her daughter, son-in-law and grandson tested positive for influenza A at our pharmacy on 05/29/18. 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 PCP - General Family Medicine 09/19/[address] [place] [phone] documented as of this encounter
--- OUTSIDE RECORDS SUMMARY | 2021-12-22 21:55 | XMS_ITS | Encounter Summary ---
:1945 Author Organization [facility] Address [address] [place] [address] Care Team Providers Name Role Phone Suhail Lemus M.D. Primary Care Provider Encounter Details Date Type Department Care Team Description 05/28/2019 Ancillary Department of Dandy Do ch Procedure Ophthalmology in Poncho Reich M.D. Retinal Vein [place], [place] [address] [facility] Occlusion With [address] [place], [place] [phone] Social History Tobacco Use Types Packs/Day Years Used Date Smoking Tobacco: Never Smokeless Tobacco: Never Alcohol Use Standard Drinks/Week Comments No 0 (1 standard drink = 0.6 oz pure alcoho l) Sex Assigned at Date Recorded Not on file documented as of this encounter Plan of Treatment Not on filedocumented as of this encounter Procedures Procedure Name Priority Date/Time Associated Comments Diagnosis OPTICAL COHERENCE Routine 05/28/2019 11:10 AM Tributary Branch Results for this TOMOGRAPHY - CDT Retinal Vein procedure are i n MACULA/RETINA - OU - Occlusion With the r esults BOTH EYES Macular Edema Right section. documented in this encounter Results Optical Coherence Tomography (OCT) [...] Depression Total Score: 3 05/13/2013 2:06 PM LANGUAGE PATHOLOGIST documented as of this encounter Care Teams Machine Shop Specialist Relationship Specialty Start Date End Date Suhail Lemus M.D. PCP - General Family Medicine 09/19/[address] [place] [phone] documented as of this encounter
--- OUTSIDE RECORDS SUMMARY | 2021-12-22 21:56 | XMS_ITS | Encounter Summary ---
:1945 Author Organization [facility] Address [address] [place] [address] Care Team Providers Name Role Phone Unavailable Primary Care Provider Unavailable Encounter Details Date Type Department Care Team Description 05/27/2014 Hospital Encounter HX [facility] FAMILY ME Abel Shah M.D. [address] [place] [phone] (Wo rk) Social History Tobacco Use Types Packs/Day Years Used Date Smoking Tobacco: Never Assessed Sex Assigned at Date Recorded Not on file documented as of this encounter Last Filed Vital Signs Vital Sign Reading Time Taken Comments Blood Pressure 140/90 05/27/2014 11:39 AM CDT Pulse 76 05/27/2014 11:39 AM CDT Temperature - - Respiratory Rate 16 05/27/2014 11:39 AM CDT Oxygen Saturation - - Inhaled Oxygen Concentration - - Weight - - Height - - Body Mass Index - - documented in this encounter Medications at Time of Discharge Medication Sig Dispensed Refills Start Date End Date naproxen sodium 220 mg Take 1 capsule by 0 2011 capsule mouth. HYDROcodone-acetaminophe Take 1-2 tablets by 0 09/14/2020 n (NORCO) 10-325 mg per mouth. tablet documented as of this encounter Progress Nelly Avila M.D. - 05/27/2014 11:01 AM CDT [id number] CHIEF COMPLAINT/REASON FOR VISIT Rosacea and dry, itchy skin. HISTORY OF PRESENT ILLNESS Kristen is a pleasant, 68-year-old female who comes to clinic today with multiple concerns. After narrowing down her concerns she would like to focus today on her rosacea and itchy eyebrows, ears and skin. She states she has been battling these for several years. She does follow with Dermatology in [place]. She has been trialed on multiple medications to help with her rosacea. They have helped intermittently. She has not been taking her antibiotics as prescribed by Dermatology and has noticed a flareof her symptoms. She is looking for further evaluation and treatment options. She also reports dry, itchy skin primarily at her eyebrows and in her ears. She has tried hydration lotion to include Vanicr eam. She has not tried oral steroids recently. She is looking to have these symptoms addressed and would like the treatment options. PAST MEDICAL/SURGICAL HISTORY 1. Rosacea. 2. Atopic dermatitis. 3. Hypertension. 4. Epistaxis. SOCIAL HISTORY Former smoker, quit in 1997. Denies caffeine, alcohol or illicit drug use. MEDICATIONS Lisinopril/hydrochlorothiazide 20/12.5, 1 tablet daily. Nasal saline irrigation, 2 drops each naris 2 times daily. ALLERGIES No known drug allergies. SYSTEMS REVIEW As per HPI, otherwise negative. PHYSICAL EXAMINATION VITAL SIGNS: Temperature 37.4, heart rate 76, respiratory rate 16, blood pressure 140/90. HEENT: Head is atraumatic, normocephalic. Eyes: Pupils equal and react to light and accommodation. Extraocular muscles are intact. Nares are patent without rhinorrhea. Oropharynx is moist without lesions identified. HEART: Regular rate and rhythm. LUNGS: Clear to auscultation bilaterally. SKIN: Face, there is significant erythema and mild edema in a butterfly pattern over the nasal bridge and upper maxillary region. Eyebrows are red with dry, scaly skin. Ears showed dry skin bilaterally. IMPRESSION/REPORT/PLAN Rosacea. Recommend that patient reinstitute her medication regimen as nicely outlined by Dermatologyat her last visit. She has MetroGel as well as tetracycline antibiotic at home which she has not been taking. Recommend that she restart his regimen to see if it will help with her overall appearance. P rescription also provided for Lidex topical cream to be applied to her dry, scaly areas and to use with water prior. Recommended followup on an as-needed basis. Patient in agreement and understanding of the plan. All questions answered. Nelly Shah M.D./heydi Electronically Signed By: NELLY SHAH MD On: 05/28/2014 08:31 AM Source: [facility] MHSDOLBEYNONRADSYS Document Id: [id number] documented in this encounter Miscellaneous Notes Miscellaneous - Teresa Edmonds L.PHumberto - 05/27/2014 11:39 AM CDT Adult Housekeeper Nanny Intake/History Adult Housekeeper Nanny Intake/History Entered On: 05/27/2014 11:43 CDT Performed On: 05/27/2014 11:39 CDT by TERESA EDMONDS Intake Chief Complaint : not feeling well with cough sinus congestion questions about her labs in [place] Temperature Core : 37.4 DegC(Converted to: 99.3 DegF) Peripheral Pulse Rate : 76 /min Respiratory Rate : 16 /min Heart Rhythm : Regular Systolic Blood Pressure : 140 mmHg Diastolic Blood Pressure : 90 mmHg (HI) NIBP Mean : 107 mmHg BP Location : Left upper extremity Blood Pressure Cuff Size : Large TERESA EDMONDS - 05/27/2014 11:39 CDT General Info Information Given By : Patient Languages : Danish Is Patient Female and 13-50 no hysterectomy : No TERESA EDMONDS - 05/27/2014 11:39 CDT Subjective Pain Symptoms : No TERESA EDMONDS - 05/27/2014 11:39 CDT Dependent Habits Tobacco Use/Currently Using : No Smoking Status : Former smoker TERESA EDMONDS 05/27/2014 11:39 CDT Tobacco Use Grid Last Use : 1997 TERESA EDMONDS - 05/27/2014 11:39 CDT Recreational Drug Use Grid Drug Use : None TERESA EDMONDS 05/27/2014 11:39 CDT ID Screen Drug Resistant Organism : No Travel Within Last 21 Days : No Contact with someone with Ebola : No TERESA EDMONDS 05/27/2014 11:39 CDT Source: [facility] POWERCHART Document Id: [id number] CDT!31 documented in this encounter Plan of Treatment Not on filedocumented as of this encounter Visit Diagnoses Not on filedocumented in this encounter Additional Health Concerns Assessment Noted Time PHQ-9 Depression Total Score: 3 05/13/2013 2:06 

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
--- OUTSIDE RECORDS SUMMARY | 2021-12-22 21:56 | XMS_ITS | Encounter Summary ---
:1945 Author Organization [facility] Address [address] [place] [address] Care Team Providers Name Role Phone Unavailable Primary Care Provider Unavailable Encounter Details Date Type Department Care Team Description 09/13/2003 Hospital Encounter HX NO MAPPING Provider, Historical Social History Tobacco Use Types Packs/Day Years Used Date Smoking Tobacco: Never Assessed Sex Assigned at Date Recorded Not on file documented as of this encounter Miscellaneous Notes Miscellaneous - Conversion, Historical Provider Ser - 09/13/2003 6:15 AM CDT [id number] Source: [facility] RWHXTRANSXSYS Document Id: [id number] documented in this encounter Plan of Treatment Not on filedocumented as of this encounter Visit Diagnoses Not on filedocumented in this encounter
--- OUTSIDE RECORDS SUMMARY | 2021-12-22 21:56 | XMS_ITS | Encounter Summary ---
:1945 Author Organization [facility] Address [address] [place] [address] Care Team Providers Name Role Phone Unavailable Primary Care Provider Unavailable Encounter Details Date Type Department Care Team Description 01/03/2010 Hospital Encounter HX [facility] Marc Alexis, INPT/OBSRV M.D. [address] [phone] (Wo rk) Social History Tobacco Use Types Packs/Day Years Used Date Smoking Tobacco: Never Assessed Sex Assigned at Date Recorded Not on file documented as of this encounter Plan of Treatment Not on filedocumented as of this encounter Visit Diagnoses Not on filedocumented in this encounter
--- OUTSIDE RECORDS SUMMARY | 2021-12-22 21:56 | XMS_ITS | Encounter Summary ---
:1945 Author Organization [facility] Address [address] [place] [address] Care Team Providers Name Role Phone Unavailable Primary Care Provider Unavailable Encounter Details Date Type Department Care Team Description 10/19/[address] [facility] CAM INPT/OBSRV Jd Leyva M.D. [address] [facility] [address], [address] [place] [address] (Wo rk) Social History Tobacco Use Types Packs/Day Years Used Date Smoking Tobacco: Never Assessed Sex Assigned at Date Recorded Not on file documented as of this encounter Plan of Treatment Not on filedocumented as of this encounter Visit Diagnoses Not on filedocumented in this encounter
--- OUTSIDE RECORDS SUMMARY | 2021-12-22 21:56 | XMS_ITS | Encounter Summary ---
:1945 Author Organization [facility] Address [address] [place] [address] Care Team Providers Name Role Phone Suhail Lemus M.D. Primary Care Provider Reason for Visit Reason Comments Fall C/o fall that happened a few hours ago, L knee and L wrist pain. Encounter Details Date Type Department Care Team Description 10/01/2017 Emergency [place] [facility] Valeria Lara , History Of Falling (Primary Dx); Department M.D. Pain Knee Left; [address] [place] [address] Pain Shoulder Left; [place] Pain Wrist Left [address] [place], [place] [phone] (Wo rk) Social History Tobacco Use Types Packs/Day Years Used Date Smoking Tobacco: Never Smokeless Tobacco: Never Alcohol Use Standard Drinks/Week Comments No 0 (1 standard drink = 0.6 oz pure alcoho l) Sex Assigned at Date Recorded Not on file documented as of this encounter Last Filed Vital Signs Vital Sign Reading Time Taken Comments Blood Pressure 192/85 10/01/2017 7:19 PM CDT Pulse 88 10/01/2017 7:19 PM CDT Temperature 36.4 ??C (97.5 ??F) 10/01/2017 7:19 PM CDT Respiratory Rate 22 10/01/2017 7:19 PM CDT Oxygen Saturation 95% 10/01/2017 7:19 PM CDT Inhaled Oxygen Concentration - - Weight 136 kg (299 lb 2.6 oz) 10/01/2017 7:20 PM CDT Height - - Body Mass Index 54.43 10/26/2014 2:55 PM CDT documented in this encounter Discharge Instructions Discharge InstructionsValeria Lara M.D. - 10/01/2017 9:56 PM CDT Bear weight on left leg as tolerated and use left wrist splint as needed. If still having significant pain and difficulty in 1 week, follow-up for repeat xrays in 1 week. Continue Tylenol / acetaminophen 650 mg up to 4 times a day (or every 6 hours) as well as ice, compression, and elevation for pain. AttachmentsThe following attachments cannot be sent through Care Everywhere.Knee Pain Adult Olia-ze-Wzke (Korean)documented in this encounter Medications at Time of [...] documented as of this encounter ED Notes Jeramie Sparks RSariahN. - 10/01/2017 7:20 PM CDT C/o fall that happened a few hours ago, L knee and L wrist pain. Denies hitting head or LOC. Left knee pain located laterally, edema and warmth present. Left wrist pain diffuse. Pt able to ambulate andhas good ROM in wrist. Jeramie Sparks R.N. 10/01/171920 Valeria Lara M.D. - 10/01/2017 7:11 PM CDT SUBJECTIVE CHIEF COMPLAINT/REASON FOR VISIT Fall (C/o fall that happened a few hours ago, L knee and L wrist pain.) HISTORY OF PRESENT ILLNESS Kristen Pederson is a 72 y.o. female not anticoagulated with PMHx of hypertension, PRESLEY, osteoarthritis, and morbid obesity who presents via private vehicle for mechanical fall. At [id number] hr, patient reports she was walking to the bathroom, tripped on the norbert, falling forward. She reports significant pain of her left anterior lateral knee, mild pain of her left wrist, a pain in her right left superior shoulder. Patient ambulated on scene, although painful. No head trauma or loss of consciousness. Denies chest pain, SOB, headache, LOC, confusion, neck pain, abdominal pain, numbness, tingling, and weakness. Otherwise was in normal state of health prior. PAST MEDICAL/SURGICAL HISTORY: Reviewed in EMR. Pertinent past medical history noted per HPI. MEDICATIONS/ALLERGIES: Reviewed in EMR and as per HPI, otherwise non-contributory to evaluation today. FAMILY HISTORY: Reviewed in EMR. Non-contributory to evaluation today. SOCIAL HISTORY: Per nursing notes, otherwise non-contributory to evaluation today. 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 OBJECTIVE Initial Vitals Temperature Pulse Rate Heart Rate Resp Rate Blood Pressure SpO2 10/01/17191810/01/171918 -- 10/01/17191810/01/17191810/01/171918 36.4 ??C 88 22 (!) 192/85 95 % Pain Score 10/01/17 2031 7 PHYSICAL EXAMINATION Constitutional: She appears well-developed and well-nourished. No distress. HENT: Head: Normocephalic and atraumatic. Head is without raccoon's eyes and without Black's sign. No signs of injury. Nose: Nose normal. No nasal septal hematoma. No epistaxis. Mouth/Throat: Mucous membranes are moist. Eyes: Conjunctivae and EOM are normal. Pupils are equal, round, and reactive to light. Neck: Normal range of motion. Neck supple. No neck adenopathy. Cardiovascular: Normal rate, regular rhythm and normal heart sounds. Pulses are palpable. Capillary refill: takes less than 3 seconds, Pulmonary/Chest: Effort normal and breath sounds normal. There is normal air entry. No respiratory distress. She exhibits no bony tenderness and no retraction. Abdominal: Soft. She exhibits no distension. There is no tenderness. There is no rebound and no guarding. Obese. Musculoskeletal: Left shoulder: She exhibits tenderness and pain. She exhibits normal range of motion, no bony tenderness, no swelling, no effusion, no crepitus, no deformity, normal pulse and normal strength. Left elbow: She exhibits normal range of motion, no swelling, no effusion and no deformity. No tenderness found. Left wrist: Normal. She exhibits normal range of motion, no bony tenderness, no swelling, no effusion, no crepitus and no deformity. Right hip: Normal. Left hip: Normal. Right knee: Normal. Left knee: She exhibits decreased range of motion, swelling, effusion, ecchymosis and abnormal patellar mobility. She exhibits no deformity. Tenderness found. Right ankle: Normal. Left ankle: Normal. She exhibits normal range of motion. No tenderness. Cervical back: She exhibits normal range of motion and no bony tenderness. Left foot: Normal. There is normal range of motion and no bony tenderness. 2+ left DP and popliteal pulses. No left scaphoid pain. Lymphadenopathy: She has no cervical adenopathy. Neurological: She is alert and oriented to person, place, and time. She has normal sensation and normal strength. No cranial nerve deficit. Coordination normal. GCS eye subscore is 4. GCS verbal subscore is 5. GCS motor subscore is 6. Skin: Skin is warm and dry. Ecchymosis noted. No rash noted. No cyanosis. Ecchymoses of the left inferior knee. Psychiatric: She has a normal mood and affect. Her behavior is normal. Nursing note and vitals reviewed. ASSESSMENT/PLAN Impression and Plan Kristen Pederson is a 72 y.o. female, not anticoagulated, with significant history of hypertension, PRESLEY, osteoarthritis, and morbid obesity who presents afebrile, hypertensive, and otherwise hemodynamically normal after mechanical fall 2 hr ago with left shoulder and left knee pain. History and exam concerning for left knee, left tibial plateau injury. Left shoulder exam unremarkable, although given body habitus, unable to localize pain to bony landmarks. No signs or symptoms of intracranial, intrathoracic, or intra- abdominal injuries. Pelvis is stable, no concern for left hip fracture. Left wrist has full ROM with no reproducible pain, imaging not indicated. No concern for left knee dislocation on exam. Provided pain management with ice packs and Tylenol. Obtained left knee, tib-fib, andleft shoulder x-rays. Otherwise no signs of trauma indicating further imaging. Reviewed and summarized previous medical records including: Documentation from previous visits. ED Course as of Oct 01 2200 Tue Oct 01, [id number] VRADs interpretation: Left knee no acute fractures. Medial compartment DJD and soft tissue swelling. . Left tibia and fibula no acute bony abnormality. Soft tissue swelling . Left shoulder no acute findings. Mild DJD of left shoulder 2156 Patient requesting to leave, ambulated out of room without difficulty. Provided left wrist splint for diffuse nonfocal pain to assist in holding her purse. Discussed symptomatic cares and follow-up in week for re-evaluation if pain persists. The patient / family expresses understanding, agrees with this plan, and has had all questions answered. Final Diagnoses: as of Oct 01 2200 History Of Falling Pain Knee Left Pain Shoulder Left Pain Wrist Left Valeria Lara M.D. 10/01/172200 documented in this encounter Plan of Treatment Not on filedocumented as of this encounter Procedures Procedure Name Priority Date/Time Associated Comments Diagnosis DX KNEE LEFT 2 RAD - Semiurgent 10/01/2017 9:37 Result s for this VIEWS (Fast; most ED PM CDT procedure are in patients; some the results inpatients) section. DX TIBIA FIBULA RAD - Semiurgent 10/01/2017 9:37 Resul ts for this LEFT 2 VIEWS (Fast; most ED PM CDT procedure are in patients; some the results inpatients) section. DX SHOULDER LEFT RAD - Semiurgent 10/01/2017 9:37 Resu lts for this 2+ VIEWS (Fast; most ED PM CDT procedure are in patients; some the results inpatients) section. documented in this encounter Results DX Knee Left 2 Views (10/01/2017 9:37 PM CDT) Anatomical Region Laterality Modality Lower Extremity, Knee, Musculoskeletal RST LOS Left Digital Radiography Specimen (Source) Anatomical Collection Method Collection Time Re ceived Time Location / / Volume Laterality 10/02/2017 7:45 AM CDT Impressions 10/02/2017 7:47 AM CDT IMPRESSION: Moderate prepatellar and infrapatellar soft tissue swelling noted. No radiographic evidence of ankle or kne e joint dislocation. No radiographic evidence of acute fracture involving the left knee, tibia or fibula. Tricompartmental arthritic changes left knee noted, moderate and most pronounced medially. Minimal degenerative arthritic changes tibiotalar joint. No appreciable knee or ankle joint effusion s. Minimal spurring along the anterior superior patella. No bony erosive or ost eolytic changes. No evidence of opaque foreign body. Narrative 10/02/2017 7:47 AM CDT EXAM: DX TIBIA FIBULA LEFT 2 VIEWS, DX KNEE LEFT 2 VIEWS vRad: ??Findings concordant with prelimi jordan vRad report. Procedure Note Juan Dee M.D. - 10/02/2017Formatt ing of this note might be different from the original. EXAM: DX TIBIA FIBULA LEFT 2 VIEWS, DX K NEE LEFT 2 VIEWS vRad: Findings concordant with prelimina ry vRad report. IMPRESSION: Moderate prepatellar and inf rapatellar soft tissue swelling noted. No radiographic evidence of ankle or kne e joint dislocation. No radiographic evidence of acute fracture involving the left knee, tibia or fibula. Tricompartmental arthritic changes left knee noted, moderate and most pronounced medially. Minimal degenerative arthritic changes tibiotalar joint. No appreciable knee or ankle joint effusion s. Minimal spurring along the anterior superior patella. No bony erosive or ost eolytic changes. No evidence of opaque foreign body. Valeria [facility] DIAGNOSTIC IMAGING PROCE [facility]ICHO DX Tibia Fibula Left 2 Views (10/01/2017 9:37 PM CDT) Anatomical Region Laterality Modality Lower Extremity, TibFib, Musculoskeletal RST LOS Left Digital Radiography Specimen (Source) Anatomical Collection Method Collection Time Re ceived Time Location / / Volume Laterality 10/02/2017 7:45 AM CDT Impressions 10/02/2017 7:47 AM CDT IMPRESSION: Moderate prepatellar and infrapatellar soft tissue swelling noted. No radiographic evidence of ankle or kne e joint dislocation. No radiographic evidence of acute fracture involving the left knee, tibia or fibula. Tricompartmental arthritic changes left knee noted, moderate and most pronounced medially. Minimal degenerative arthritic changes tibiotalar joint. No appreciable knee or ankle joint effusion s. Minimal spurring along the anterior superior patella. No bony erosive or ost eolytic changes. No evidence of opaque foreign body. Narrative 10/02/2017 7:47 AM CDT EXAM: DX TIBIA FIBULA LEFT 2 VIEWS, DX KNEE LEFT 2 VIEWS vRad: ??Findings concordant with prelimi nary vRad report. Procedure Note Juan Dee M.D. - 10/02/2017Formatt ing of this note might be different from the original. EXAM: DX TIBIA FIBULA LEFT 2 VIEWS, DX K NEE LEFT 2 VIEWS vRad: Findings concordant with prelimina ry vRad report. IMPRESSION: Moderate prepatellar and inf rapatellar soft tissue swelling noted. No radiographic evidence of ankle or kne e joint dislocation. No radiographic evidence of acute fracture involving the left knee, tibia or fibula. Tricompartmental arthritic changes left knee noted, moderate and most pronounced medially. Minimal degenerative arthritic changes tibiotalar joint. No appreciable knee or ankle joint effusion s. Minimal spurring along the anterior superior patella. No bony erosive or ost eolytic changes. No evidence of opaque foreign body. Valeria Lara M.D. [facility] DI[facility]NOSTIC IMAGING PROCE [facility] DX Shoulder Left 2+ Views (10/01/2017 9:37 PM CDT) Anatomical Region Laterality Modality Upper Extremity, Shoulder, Musculoskeletal RST LOS Left Digital Radiography Specimen (Source) Anatomical Collection Method Collection Time Re ceived Time Location / / Volume Laterality 10/02/2017 7:44 AM CDT Impressions 10/02/2017 7:45 AM CDT IMPRESSION: No radiographic evidence of acute left shoulder fracture or dislocation. Mild to moderate degenerati ve arthritic changes glenohumeral joint and to a lesser degree acromioclavicular joint. No evidence of opaque foreign body. No bony erosive or osteolytic araya ges. Visuals left ribs are negative for fracture. Aortic vascular calcifications . Degenerative spondylotic disc space changes and facet arthropathy visualized cervical spine. Narrative 10/02/2017 7:45 AM CDT EXAM: DX SHOULDER LEFT 2+ VIEWS vRad: ??Findings concordant with prelimleslie ortega vRjoanne report. Procedure Note Juan Dee M.D. - 10/02/2017Formatt ing of this note might be different from the original. EXAM: DX SHOULDER LEFT 2+ VIEWS vRad: Findings concordant with prelimemory frederick vRad report. IMPRESSION: No radiographic evidence of acute left shoulder fracture or dislocation. Mild to moderate degenerati ve arthritic changes glenohumeral joint and to a lesser degree acromioclavicular joint. No evidence of opaque foreign body. No bony erosive or osteolytic araya ges. Visuals left ribs are negative for fracture. Aortic vascular calcifications . Degenerative spondylotic disc space changes and facet arthropathy visualized cervical spine. Valeria Lara M.D. IMG DIAGNOSTIC IMAGING PROCE DURES documented in this encounter Visit Diagnoses Diagnosis History Of Falling - Primary Pain Knee Left Pain Shoulder Left Pain Wrist Left documented in this encounter Administered Medications Inactive Administered Medications - up to 3 most recent administrations Medication Order MAR Action Action Date Dose Rate Site acetaminophen tablet 650 mg Given 10/01/2017 8:31 PM CDT 650 mg (TYLENOL) 650 mg, oral, Once, On 10/01/17 at 1926, For 1 dose documented in this encounter Active and Recently Administered Medications Times are shown in CDT. Scheduled Medication Order 09/29/2017 09/30/2017 10/01/2017 acetaminophen tablet 650 mg (TYLENOL) (COMPLETED) 2030 (Given - Provider: Jeramie Sparks R.N.) 650 mg, oral, Once, 10/01/17 at 1926, For 1 dose documented in this encounter Additional Health Concerns Assessment Noted Time PHQ-9 Depression Total Score: 3 05/13/2013 2:06 PM TECHNICAL ASST documented as of this encounter Care Teams Diamond Sawer Relationship Specialty Start Date End Date Suhail Lemus M.D. PCP - General Family Medicine 09/19/[id number] [place] [phone] documented as of this encounter
--- OUTSIDE RECORDS SUMMARY | 2021-12-22 21:56 | XMS_ITS | Encounter Summary ---
:1945 Author Organization [facility] Address [address] [place] [address] Care Team Providers Name Role Phone Unavailable Primary Care Provider Unavailable Encounter Details Date Type Department Care Team Description 08/23/2009 Hospital Encounter [facility]X [facility] INPT/OBSRV Jd Leyva M.D. [address] [place], [address] [place] [address] (Wo rk) Social History Tobacco Use Types Packs/Day Years Used Date Smoking Tobacco: Never Assessed Sex Assigned at Date Recorded Not on file documented as of this encounter Plan of Treatment Not on filedocumented as of this encounter Visit Diagnoses Not on filedocumented in this encounter
--- OUTSIDE RECORDS SUMMARY | 2021-12-22 21:56 | XMS_ITS | Encounter Summary ---
:1945 Author Organization [facility] Address [address] [place] [address] Care Team Providers Name Role Phone Unavailable Primary Care Provider Unavailable Encounter Details Date Type Department Care Team Description 01/09/2010 Hospital Encounter HX [facility] Marc Alexis, INPT/OBSRV M.D. [address] [phone] (Wo rk) Social History Tobacco Use Types Packs/Day Years Used Date Smoking Tobacco: Never Assessed Sex Assigned at Date Recorded Not on file documented as of this encounter Plan of Treatment Not on filedocumented as of this encounter Visit Diagnoses Not on filedocumented in this encounter
--- OUTSIDE RECORDS SUMMARY | 2021-12-22 21:56 | XMS_ITS | Encounter Summary ---
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 procedure ar e in the results section. THYROID-STIMULATING Routine 04/06/2015 11:02 AM R esults for this HORMONE-SENSITIVE [employer]AT[employer] SUPERVISOR procedure are in (S-TSH) the results section. BASIC METABOLIC Routine 04/06/2015 11:02 AM Resul ts for this PANEL, S/P [employer]PERATORS SUPERVISOR procedure are i n the results section. documented in this encounter Results (ABNORMAL) CBC without Differential (04/06/2015 11:02 AM NETWORK CONTR[employer] OPERATORS SUPERVISOR) Analysis Performed At Patho logist Time Signature Leukocytes 9.8 3.4 - 10.5 POWERCHART X109L Erythrocytes 5.19 (H) 3.90 - POWERCHART 5.03 [id number] Hemoglobin 13.8 12.0 - POWERCHART 15.5 GDL Hematocrit 43.6 34.9 - POWERCHART 44.5 MCV 84.0 82.0 - POWERCHART 98.0 FL HX RDW 14.7 11.9 - POWERCHART 15.5 Platelet Count 274 150 - 450 POWERCHART X109L Specimen (Source) Anatomical Collection Method Collection Time Re ceived Time Location / / Volume Laterality Blood 04/06/2015 11:02 AM NETWORK [employer] OPERATORS SUPERVISOR Monica Ba M.D. LAB BLOOD ADD-ON Performing Organization Address City/State/ZIP Code Phon e Number POWERCHART (ABNORMAL) BMP (Basic Metabolic Panel) (04/06/2015 11:02 AM NETWORK CONTR[employer] OPERATORS SUPERVISOR) P athologist Signature Sodium, S 139.0 135.0 - POWERCHART 145.0 MML Potassium, S 3.8 3.6 - 4.8 POWERCHART MMOLL Chloride, S 103 98 - 107 POWERCHART MMOLL CO2 Total 29.0 23.0 - POWERCHART 29.0 MMOLL BUN (Blood Urea 16 7 - 18 POWERCHART Nitrogen), S MGDL Creatinine 0.73 0.60 - POWERCHART 1.30 MGDL Calcium, Total, 9.0 8.8 - 10.2 POWERCHART S MGDL Anion Gap 7 (L) 10 - 20 POWERCHART MMOLL HXeGFR (MDRD) >60 >=60 POWERCHART [id number] eGFR >60 >=60 POWERCHART Black/ [id number] [place] Glucose 143 (H) 70 - 139 POWERCHART MGDL Specimen (Source) Anatomical Collection Method Collection Time Re ceived Time Location / / Volume Laterality Blood 04/06/2015 11:02 AM NETWORK [employer]PERATORS SUPERVISOR Monica Ba M.D. LAB BLOOD ADD-ON Performing Organization Address City/State/ZIP Code Phon e Number POWERCHART Hepatic Function Panel (04/06/2015 11:02 AM NETWORK CONTR[employer] OPERATORS SUPERVISOR) Patholo gist Method Time Signature Alanine 29 7 - 45 POWERCHART Amniotransferase, LD UNITL Albumin, S 3.8 3.5 - 5.0 POWERCHART GDL Alkaline 114 55 - 142 POWERCHART Phosphatase, S UL Aspartate 23 8 - 43 POWERCHART Aminotransferase UNITL (AST), S Bilirubin, Direct, S 0.1 0.0 - 0.3 POWERCHAR T MGDL Bilirubin, Total, S 0.2 0.1 - 1.0 POWERCHART MGDL Total Protein, S 6.6 6.3 - 7.9 POWERCHART GDL HXGlobulin 2.8 2.0 - 4.5 POWERCHART GDL Specimen (Source) Anatomical Collection Method Collection Time Re ceived Time Location / / Volume Laterality Blood 04/06/2015 11:02 AM [employer]WORK [employer] OPERATORS SUPERVISOR Monica Ba M.D. LAB BLOOD ADD-ON Performing Organization Address City/State/ZIP Code Phon e Number POWERCHART Thyroid-Stimulating Hormone-Sensitive (s-TSH) (04/06/2015 11:02 AM NETWORK CONTR[employer] OPERATORS SUPERVISOR) P athologist Signature TSH 3.60 0.27 - 4.20 POWERCHART (Thyrotropin) MIUL Specimen (Source) Anatomical Collection Method Collection Time Re ceived Time Location / / Volume Laterality Blood 04/06/2015 11:02 AM NETWORK [employer] OPERATORS SUPERVISOR Monica Ba M.D. LAB BLOOD ADD-ON Performing Organization Address City/State/ZIP Code Phon e Number POWERCHART documented in this encounter Visit Diagnoses Not on filedocumented in this encounter Additional Health Concerns Assessment Noted Time PHQ-9 Depression Total Score: 3 05/13/2013 2:06 PM NETWORK [employer] OPERATORS SUPERVISOR documented as of this encounter
--- OUTSIDE RECORDS SUMMARY | 2021-12-22 21:56 | XMS_ITS | Encounter Summary ---
:1945 Author Organization [facility] Address [address] [place] [id number] Care Team Providers Name Role Phone Unavailable Primary Care Provider Unavailable Encounter Details Date Type Department Care Team Description 07/26/2003 Hospital Encounter HX NO MAPPING Provider, Historical Social History Tobacco Use Types Packs/Day Years Used Date Smoking Tobacco: Never Assessed Sex Assigned at Date Recorded Not on file documented as of this encounter Plan of Treatment Not on filedocumented as of this encounter Visit Diagnoses Not on filedocumented in this encounter
--- OUTSIDE RECORDS SUMMARY | 2021-12-22 21:56 | XMS_ITS | Encounter Summary ---
:1945 Author Organization [facility] Address [address] [place] [address] Care Team Providers Name Role Phone Suhail Lemus M.D. Primary Care Provider Encounter Details Date Type Department Care Team Description 07/25/2012 Historical Ophthalmology RST OPH Agnieszka Harrison M.D. Social History Tobacco Use Types Packs/Day Years Used Date Smoking Tobacco: Never Assessed Sex Assigned at Date Recorded Not on file documented as of this encounter Progress Notes Agnieszka Harrison M.D. - 07/25/2012 10:07 AM CDT Eye General CHIEF COMPLAINT Both eyes, foreign body sensation, blurry vision. HISTORY OF PRESENT ILLNESS Both eyes, foreign body sensation, blurry vision, months, and getting worse . Film in eyes. Pt was seen in Derm and has rosacea, they believe she may have ocular rosacea. Patient now has foreign body sensation and blurry vision. On abx for rosacea on her face. and ER eye visit was ordered by derm. Tried Thera tears the other night , feels like sand in them, drops made it feel dryer. No new floaters. No flashes of light. Right eye floaters. No diplopia. Eyes ache a little, sometimes. Dry eyes all thetime, scratch and hurt, rubs them. No redness. Stuff in eyes when wakes up in the morning. RCM: Pt recently had rosacea diagnosed and her PCP is concerned that it is affecting her eyes. About1 year ago she notices that she would wake up with blurry vision. She c/o sand in her eyes, blurry vision. She is now on doxycycline that was started by dermatology. She is currently using Thera tears only when her eyes feel dry. 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 #3 Pigmented sclera, left CDM Reports - EYEGEN Id: [id number] Status: Fnl documented in this encounter Plan of Treatment Not on filedocumented as of this encounter Visit Diagnoses Not on filedocumented in this encounter Additional Health Concerns Infection Onset Date Last Indicated Resolved Time COVID19 Pending 10/28/2019 10/28/2019 10/28/2019 10:14 PM CDT COVID19 Pending 10/28/2019 10/28/2019 10/30/2019 2:23 AM CDT COVID19 Pending 12/25/2019 12/25/2019 12/26/2019 2:16 PM CDT COVID19 Pending 03/17/2020 03/17/2020 03/18/2020 2:39 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 PCP - General Family Medicine 09/19/[address] [place] [phone] documented as of this encounter
--- OUTSIDE RECORDS SUMMARY | 2021-12-22 21:56 | XMS_ITS | Encounter Summary ---
:1945 Author Organization [facility] Address [address] [place] [address] Care Team Providers Name Role Phone Unavailable Primary Care Provider Unavailable Encounter Details Date Type Department Care Team Description 07/07/2009 Hospital Encounter HX [facility] Marc Alexis, INPT/OBSRV M.D. [address] [phone] (Wo rk) Social History Tobacco Use Types Packs/Day Years Used Date Smoking Tobacco: Never Assessed Sex Assigned at Date Recorded Not on file documented as of this encounter Plan of Treatment Not on filedocumented as of this encounter Visit Diagnoses Not on filedocumented in this encounter
--- OUTSIDE RECORDS SUMMARY | 2021-12-22 21:56 | XMS_ITS | Encounter Summary ---
:1945 Author Organization [facility] Address [address] [place] [address] Care Team Providers Name Role Phone Unavailable Primary Care Provider Unavailable Encounter Details Date Type Department Care Team Description 12/28/2009 Hospital Encounter HX [facility] INPT/OBSRV Trenton Pepper M.D. [address], [place], [place] [address] (Wo rk) Social History Tobacco Use Types Packs/Day Years Used Date Smoking Tobacco: Never Assessed Sex Assigned at Date Recorded Not on file documented as of this encounter Plan of Treatment Not on filedocumented as of this encounter Visit Diagnoses Not on filedocumented in this encounter
--- OUTSIDE RECORDS SUMMARY | 2021-12-22 21:56 | XMS_ITS | Encounter Summary ---
:1945 Author Organization [facility] Address [address] [place] [id number] Care Team Providers Name Role Phone Unavailable Primary Care Provider Unavailable Encounter Details Date Type Department Care Team Description 05/13/2014 Hospital Encounter HX [facility] ED Teresa Calles P.A.-C. [address] [place] [address] [phone] (Wo [phone]) Social History Tobacco Use Types Packs/Day Years Used Date Smoking Tobacco: Never Assessed Sex Assigned at Date Recorded Not on file documented as of this encounter Last Filed Vital Signs Vital Sign Reading Time Taken Comments Blood Pressure 159/79 05/13/2014 7:15 AM AIRPLANE ELECTRICIAN Pulse 88 05/13/2014 6:30 AM AIRPLANE ELECTRICIAN Temperature - - Respiratory Rate - - Oxygen Saturation - - Inhaled Oxygen Concentration - - Weight - - Height - - Body Mass Index - - documented in this encounter Discharge Summaries Mariam Sandy R.N. - 05/13/2014 7:19 AM CST ED Discharge Instructions [address] [address] Name: NOVA PEDERSON Date of : 1945 12:00 AM Visit Date: 05/13/2014 6:19 AM [facility] Number: [id number] Address: [address] [place] [phone] Primary Care Provider: PCP, UNASSIGNED - [place] IMPORTANT: [facility] in [place] would like to thank you for allowing us to assist you with your healthcare needs. The following includes patient education materials and informationregarding your injury/illness. Diagnosis: Epistaxis Follow-Up Instructions: With: Address: When: Follow up with primary care provider Within 1 month Comments: For recheck on blood pressure, or sooner for any nose bleed. With: Address: When: UNASSIGNED - CA PCP Within As Needed Comments: Your Upcoming Appointments: Date Time Location Provider 05/21/2014 12:30 [facility] Mariah SEGOVIA, Delano Stauffer Patient Education Materials: [id number] Nosebleed The skin inside your nose is fragile and filled with blood vessels. That's why even a slight injury to your nose sometimes may cause bleeding. Hard nose blowing, dry winter air, colds, and nose pickingcan also cause nosebleeds. Normally, nosebleeds are not a cause for concern. But in some cases, theycan signal a more serious medical problem. Know when to seek medical care for a nosebleed. When to Go to the Emergency Room (ER) Most nosebleeds arent a medical emergency. In fact, you often can treat them yourself. However, see your healthcare provider if you have frequent nosebleeds. And seek care right away if you: ?? Have a head injury. ?? Have bleeding that lasts more than 15 to 30 minutes or is severe. ?? F eel weak or faint. ?? Feel blood flowing down the back of your throat. ?? Have trouble breathing. To help stop a nosebleed: Sit or stand up and lean your head forward (not back) Gently pinch the soft part of your nose for 5 to 10 minutes. If your nose still bleeds, try pinching for 10 minutes more. What to Expect in the ER ?? You will be examined and may have blood tests. ?? You may be given medicated nose drops to stop the nosebleed. ?? Gauze may be packed into your nose to put pressure on the vessel and help stop bleeding. ?? The bleeding vessel may be cauterized. During this procedure, the vessel is burned with an electrical device or chemical. Your nose is first numbed so you wont feel any pain. ?? [id number] [facility], [address] [place] [address]. All rights reserved. This information is not intended as a substitute for professional medical care. Always follow your healthcare professional's instructions. [id number] NOSEBLEED [Adult] Bleeding from the nose most commonly occurs due to injury or drying and cracking of the inner liningof the nose. This can occur during a common cold, hay fever attack, a very hot day, or from dry air in the winter. High blood pressure and hardening of the arteries (atherosclerosis) may also cause nosebleeds. If the bleeding site is found, it may be treated with a chemical or heat or electricity to cause a blood clot to form (cauterized). If the bleeding continues after cautery or if the bleeding site cannot be found, a packing may be placed in your nose to apply pressure and stop the bleeding. The packingmay be made of gauze or sponge. A small balloon catheter is sometimes used. These need to be removedby your doctor. Some types of packing dissolve on their own. HOME CARE: ?? If a packing was put in your nose, unless told otherwise, do not pull on it or try to remove it yourself. You will be given an appointment to have it removed. You may also have been given antibiotics to prevent a sinus infection. If so, complete all the medicine. ?? Do not blow your nose for 12 hours after the bleeding stops. This will allow a strong blood clot to form. Do not pick your nose. This may restart bleeding. ?? Avoid alcohol and hot liquids for the next two days. Alcohol or hot liquids in your mouth can dilate blood vessels in your nose and cause bleeding to start again. ?? Do not take ibuprofen (Advil, Motrin), naprosyn (Aleve) or aspirin-containing medicines since these thin the blood and may promote nose bleeding. You may take Tylenol (acetaminophen) for pain, unless another pain medicine was prescribed. ?? If the bleeding starts again, sit up and lean forward to prevent swallowing blood. Pinch your nose tightly for exactly 5 minutes (watch the clock). If bleeding is not controlled, continue to pinch and call your doctor or return to this facility. ?? If high blood pressure was a cause for your nosebleed, have your blood pressure checked again tomorrow. ?? If you have a cold or hay fever or dry nasal membranes, lubricate the nasal passages by applying a small amount of Vaseline inside the nose with a Q- tip twice a day (morning and night). Avoid overheating your home, which can dry the air and worsen your condition. FOLLOW UP with your doctor as advised for packing removal. Nasal packing should be rechecked or removed within 2-3 days. GET PROMPT MEDICAL ATTENTION if any of the following occur: ?? Another nosebleed that you cannot control ?? Dizziness, weakness or fainting ?? Fever of 100.4??F (38??C) or higher, or as directed by your healthcare provider ?? Headache ?? Sinus or facial pain Shortness of breath or trouble breathing ?? [id number] [facility], [address] [place] [address], [place] [address]. All rights reserved. This information is not intended as a substitute for professional medical care. Always follow your healthcare professional's instructions. ED Tests and Procedures: Order Status Discharge Prescriptions & Home Medications: Medication/Strength Dose Route Frequency Indications/Special Instructions/Comments/Notes sodium chloride nasal (Bristow Saline 0.65% nasal solution) 2 drop(s) Nasal every 2 hours sodium chloride nasal (Bristow Saline 0.65% nasal gel) 1 spray(s) Nasal four times a day lisinopril-hydrochlorothiazide (lisinopril-hydrochlorothiazide 20 mg-12.5 mg oral tablet) 1 tab(s) Oral once a day (Zestoretic) Comment: Attention: If you have any medications at home not on this list, DO NOT take them until you contact your provider for clarification. Give a copy of your medication list to your primary care provider. Update your medication list any time medications or doses are changed and carry your medication list at all times in case of emergency. Medication Reconciliation: Reconciliation is a process of identifying the most accurate list of all medications a patient is taking - including name, dosage, frequency, and route - and using this list to provide to the patient information about how to take those medications. NOVA PEDERSON or allie has reviewed the home medications you have listed with us. Review the following instructions: You have NOT received any prescriptions and you have told us you are not currently taking any home medications You have NOT received any prescriptions. You have been provided a discharge medications list and you may CONTINUE taking your medications as previously prescribed by your regular providers. You have received the listed prescriptions and BEGIN all listed prescriptions as directed. Since you have listed no home medications, please check with your family doctor if you are taking any other medications. You have received the listed prescriptions and BEGIN all listed prescriptions as directed. Youhave been provided a discharge medications list and you may CONTINUE all home medications as previously prescribed by your regular providers. You have received the listed prescriptions and BEGIN all listed prescriptions as directed. Youhave been provided a discharge medications list. The following CHANGES have been made to your medication list; Otherwise, CONTINUE all home medications as previously prescribed by your regular provider. IMPORTANT: We examined and treated you today [...] had special tests, such as EKG's or X-rays, we will review them again within 24 [...] nurse or physician. Patient Signature or Responsible Green Party/Relationship Date Time Provider Signature Date Time Medication Reconciliation: Reconciliation is a process of identifying the most accurate list of all medications a patient is taking - including name, dosage, frequency, and route - and using this list to provide to the patient information about how to take those medications. NOVA PEDERSON or allie has reviewed the home medications you have listed with us. Review the following instructions: You have NOT received any prescriptions and you have told us you are not currently taking any home medications You have NOT received any prescriptions. You have been provided a discharge medications list and you may CONTINUE taking your medications as previously prescribed by your regular providers. You have received the listed prescriptions and BEGIN all listed prescriptions as directed. Since you have listed no home medications, please check with your family doctor if you are taking any other medications. You have received the listed prescriptions and BEGIN all listed prescriptions as directed. Youhave been provided a discharge medications list and you may CONTINUE all home medications as previously prescribed by your regular providers. You have received the listed prescriptions and BEGIN all listed prescriptions as directed. Youhave been provided a discharge medications list. The following CHANGES have been made to your medication list; Otherwise, CONTINUE all home medications as previously prescribed by your regular provider. IMPORTANT: We examined and treated you today [...] had special tests, such as EKG's or X-rays, we will review them again within 24 [...] a ride home with a responsible libertarian. IMARY CARMEN ANNA CATHERINE , or responsible libertarian have received this information and my questionshave been answered. I have discussed any challenges I see with this plan with the nurse or physician. Patient Signature or Responsible Green Party/Relationship Date Time Provider Signature Date Time This document has images extracted. Please consider using [employer] for all your patient education needs. Source: [facility] POWERCHART Document Id: [id number] LANE ELECTRICIAN Mariam Sandy, R.N. - 05/13/2014 7:19 AM CST ED Depart Summary [facility] Clinical Discharge Summary PERSON INFORMATION Name NOVA PEDERSON Age 68 Years 1945 12:00 AM Sex Female Language Algerian PCP PCP, UNASSIGNED - [place] Marital Status Single N [id number] Visit Id Visit Reason Nose bleed; bloodly nose Specialty Enc Type Emergency Med Service Emergency Medicine Referred by Track Group [facility] ED Discharge 05/13/2014 7:15 AM Tracking Id [id number] Checkout 05/13/2014 7:15 AM Checkin 05/13/2014 6:19 AM Acuity 2 -Emergent Dispo Type * Discharged to Home or Self Care Arrival 05/13/2014 6:19 AM Reg Status Complete LOS 000 00:56 Address: [address] [place] [phone] Comment: PROVIDER INFORMATION Provider Role Provider Contact Time SHEILA ZULETA BUSINESS PARTNER Nurse 05/13/14 06:33 CHRISTEN SHAIKH MD ED Provider 05/13/14 06:44 MARIAM SANDY BUSINESS PARTNER Nurse 05/13/14 06:59 DIAGNOSIS Epistaxis Comment: PATIENT EDUCATION INFORMATION Instructions: Nosebleed; EPISTAXIS (Adult) Follow up: With: Address: When: Follow up with primary care provider Within 1 month Comments: For recheck on blood pressure, or sooner for any nose bleed. With: Address: When: UNASSIGNED - [place] PCP Within As Needed Comments: Source: [facility] POWERCHART Document Id: [id number] LANE ELECTRICIAN documented in this encounter Medications at Time of Discharge Medication Sig Dispensed Refills Start Date End Date naproxen sodium 220 mg Take 1 capsule by 0 2011 capsule mouth. HYDROcodone-acetaminophe Take 1-2 tablets by 0 09/14/2020 n (NORCO) 10-325 mg per mouth. tablet documented as of this encounter ED Notes Christen Shaikh M.D. - 05/13/2014 10:26 AM CST Nose bleed Patient: NOVA PEDERSON Age: 68 years Sex: Female : 1945 Author: CHRISTEN SHAIKH MD Attachments: None Associated Diagnosis: Epistaxis Basic Information Time seen: Immediately upon arrival. History source: Patient. Arrival mode: Private vehicle. History limitation: None. Additional information: Chief Complaint from Nursing Triage Note : Chief Complaint Description 05/13/2014 6:27 AIRPLANE ELECTRICIAN Chief Complaint Description see note 05/13/2014 6:25 AIRPLANE ELECTRICIAN Chief Complaint Description 68 year old female admits with nose bleed starting one hour ago. Pt was seen in ER 2 days ago with a nose bleed that had to be cauterized . History of Present Illness The patient presents with epistaxis. The onset was just prior to arrival. The course/duration of symptoms is constant, worsening and Presents to ED with nasal clamp in place after spontaneous right nasal bleeding this am in home. Location: left. The degree at onset was moderate. The degree at present is minimal. Risk factors consist of hypertension. Prior episodes: frequent. Therapy today: prescription medications. Associated symptoms: denies dyspnea, denies fever, denies chills, denies nausea, denies vomiting, denies swallowing blood, denies dizziness and denies syncope. Review of Systems Constitutional symptoms: Negative except [...] Reactions (Selected) NKA. Medications: (Selected) Prescriptions Prescribed Bristow Saline 0.65% nasal gel: 1 spray(s), Nasal, 4xDay, 14 gm Bristow Saline 0.65% nasal solution: 2 drop(s), Nasal, q2hr, 1 each lisinopril-hydrochlorothiazide 20 mg-12.5 mg oral tablet: 1 tab(s), PO, Daily, 30 tab(s). Past Medical/ Family/ Social History Medical history: No active or resolved past medical history items have been selected or recorded.. Surgical history: No active procedure history items have been selected or recorded.. Family history: No family history items have been selected or recorded.. Social history: Alcohol use: Denies, Tobacco use: Denies, Drug use: Denies, Occupation: Retired, Family/social situation: Intact family. Problem list: All Problems Bleed Nose / 784.7 / Confirmed. Physical Examination Vital Signs: Vital Signs 05/13/2014 7:15 AIRPLANE ELECTRICIAN Systolic Blood Pressure 159 mmHg HI Diastolic Blood Pressure 79 mmHg BP Location Other: left wrist 05/13/2014 6:30 AIRPLANE ELECTRICIAN Temperature Oral 36.7 DegC Peripheral Pulse Rate 88 /min SpO2 96 % Systolic Blood Pressure 175 mmHg >HHI Diastolic Blood Pressure 85 mmHg BP Location Left upper , SpO2 05/13/2014 6:30 AIRPLANE ELECTRICIAN SpO2 96 % . General: Alert, moderate distress and anxious. Skin: Warm, dry, intact and no pallor. Head: Normocephalic and atraumatic. Eye: Pupils are equal, round and reactive to light, normal conjunctiva and vision grossly normal. Ears, nose, mouth and throat: Oral mucosa moist and Nose: Left naris. Cardiovascular: Regular rate and rhythm, Normal peripheral perfusion and No edema. Respiratory: Lungs are clear to auscultation, respirations are non-labored, breath sounds are equal and Symmetrical chest wall expansion. Chest wall: No tenderness and No deformity. Musculoskeletal: Normal ROM. normal strength. no tenderness. no swelling. Genitourinary Neurological: Alert and oriented to person, place, time, and situation, No focal neurological deficit observed, CN II-XII intact, normal sensory observed, normal motor observed and normal speech observed. Lymphatics Psychiatric: Cooperative, appropriate mood & affect and normal judgment. Medical Decision Making Differential Diagnosis:Anterior epistaxis, hypertension, anemia. Rationale:BP meds not fully effective as started recently.. Documents reviewed:Emergency department nurses' notes. Reexamination/ Reevaluation Vital signs results included from flowsheet : Vital Signs 05/13/2014 7:15 AIRPLANE ELECTRICIAN Systolic Blood Pressure 159 mmHg HI Diastolic Blood Pressure 79 mmHg BP Location Other: left wrist 05/13/2014 6:30 AIRPLANE ELECTRICIAN Temperature Oral 36.7 DegC Peripheral Pulse Rate 88 /min SpO2 96 % Systolic Blood Pressure 175 mmHg >HHI Diastolic Blood Pressure 85 mmHg BP Location Left upper Course: improving. Pain status: resolved. Assessment: Hemostatic after neosynephrine and silver nitrate applied.. Impression and Plan Diagnosis Epistaxis (Discharge, Emergency medicine, Medical) Plan Condition: Improved, Stable. Disposition: Discharged: to home. Patient was given the following educational materials: Nosebleed, EPISTAXIS (Adult). Limitations: Limited activity. Follow up with: Follow up with primary care provider Within 1 month For recheck on blood pressure, or sooner for any nose bleed.; UNASSIGNED - [place] PCP Within As Needed. Counseled: Patient, Regarding diagnosis, Regarding diagnostic results, Regarding treatment plan, Regarding prescription, Patient indicated understanding of instructions. Electronically Signed By: CHRISTEN SHAIKH MD On: 05/14/2014 03:08 PM [facility] Document Id: [id number]} LANE ELECTRICIAN Mariam Sandy RSariahNSariah - 05/13/2014 7:03 AM CST ED Pain Assessment ED Pain Assessment Entered On: 05/13/2014 7:03 AIRPLANE ELECTRICIAN Performed On: 05/13/2014 7:03 AIRPLANE ELECTRICIAN by MARIAM SANDY RN Pain Assessment Pain Symptoms : No MARIAM SANDY RN - 05/13/2014 7:03 AIRPLANE ELECTRICIAN Source: [employer] Document Id: [id number] AIRPLANE ELECTRICIAN!3 LANE ELECTRICIAN Mariam Sandy R.N. - 05/13/2014 7:02 AM CST ED Disposition Summary ED Disposition Summary Entered On: 05/13/2014 7:03 AIRPLANE ELECTRICIAN Performed On: 05/13/2014 7:02 AIRPLANE ELECTRICIAN by MARIAM SANDY RN ED Disposition Summary Accompanied By : Alone Mode of Discharge : Ambulatory Transportation : Private vehicle Discharge From ED With : Home Med List Printed Discharge Instructions Given to Patient : Yes Patient Status at Discharge from ED : Improved MARIAM SANDY RN - 05/13/2014 7:02 AIRPLANE ELECTRICIAN Source: [facility] [employer] Document Id: [id number] AIRPLANE ELECTRICIAN!8 LANE ELECTRICIAN Sheila Zuleta R.N. - 05/13/2014 6:27 AM CST ED Primary Assessment Document Has Been Updated ED Primary Assessment Entered On: 05/13/2014 6:28 AIRPLANE ELECTRICIAN Performed On: 05/13/2014 6:27 AIRPLANE ELECTRICIAN by SHEILA ZULETA RN Reason For Visit (As Of: 05/13/2014 06:28:41 AIRPLANE ELECTRICIAN) Problems(Active) Bleed Nose (ICD-9-CM :784.7 ) Name of Problem: Bleed Nose ; Recorder: SHEILA ZULETA RN; Confirmation: Confirmed ; Classification: Nursing ; Code: 784.7 ; Contributor System: [employer] ; Last Updated: 05/13/2014 6:25 AIRPLANE ELECTRICIAN ; Life Cycle Date: 05/13/2014 ; Life Cycle Status: Active ; Responsible Provider: SHEILA ZULETA RN; Vocabulary: ICD-9-CM Triage Chief Complaint Description : see note Mode of Arrival ED : Private vehicle Track : Medical Languages : Algerian Treatments Prior to Arrival : None Is Patient Female and 13-50 no hysterectomy : No SHEILA ZULETA RN - 05/13/2014 6:27 AIRPLANE ELECTRICIAN Pain Assessment Pain Symptoms : No SHEILA ZULETA RN - 05/13/2014 6:27 AIRPLANE ELECTRICIAN ID Screen Drug Resistant Organism : No Travel Within Last 21 Days : No SHEILA ZULETA RN - 05/13/2014 6:27 AIRPLANE ELECTRICIAN Respiratory Airway : Patent Respirations : Unlabored Respiratory Pattern : Regular SHEILA ZULETA RN - 05/13/2014 6:27 AIRPLANE ELECTRICIAN Cardiovascular Heart Rhythm : Regular Skin Color : Normal for ethnicity Skin Description : Dry Skin Temperature : Warm SHEILA ZULETA RN - 05/13/2014 6:27 AIRPLANE ELECTRICIAN Neurological Last Well Time Known : Yes Last Known Well Time : 05/13/2014 5:30 AIRPLANE ELECTRICIAN Level of Consciousness : Alert Orientation : Oriented x 3 Characteristics of Speech : Appropriate for age SHEILA ZULETA RN - 05/13/2014 6:27 AIRPLANE ELECTRICIAN ED Psychosocial Affect/Behavior : Calm Domestic Abuse Concerns : None SHEILA ZULETA RN - 05/13/2014 6:27 AIRPLANE ELECTRICIAN Gastrointestinal Nutrition ED : Adequate SHEILA ZULETA RN - 05/13/2014 6:27 AIRPLANE ELECTRICIAN Musculoskeletal Fall Prevention Education Provided : SHEILA ALDRIDGE RN - 05/13/2014 6:27 AIRPLANE ELECTRICIAN Social Habits Tobacco Use/Currently Using : No Smoking Status : Former smoker SHEILA ZULETA RN - 05/13/2014 6:27 AIRPLANE ELECTRICIAN Alcohol Use Grid Alcohol Use : No SHEILA ZULETA RN - 05/13/2014 6:27 AIRPLANE ELECTRICIAN Recreational Drug Use Grid Drug Use : None SHEILA ZULETA RN - 05/13/2014 6:27 AIRPLANE ELECTRICIAN [facility] Document Id: [id number] AIRPLANE ELECTRICIAN![address] L[address] ELECTRICIAN Sheila Zuleta R.N. - 05/13/2014 6:25 AM CST ED Triage Assessment Document Has Been Updated ED Triage Assessment Entered On: 05/13/2014 6:27 AIRPLANE ELECTRICIAN Performed On: 05/13/2014 6:25 AIRPLANE ELECTRICIAN by SHEILA ZULETA RN Reason For Visit (As Of: 05/13/2014 06:27:24 AIRPLANE ELECTRICIAN) Problems(Active) Bleed Nose (ICD-9-CM :784.7 ) Name of Problem: Bleed Nose ; Recorder: SHEILA ZULETA RN; Confirmation: Confirmed ; Classification: Nursing ; Code: 784.7 ; Contributor System: [employer] ; Last Updated: 05/13/2014 6:25 AIRPLANE ELECTRICIAN ; Life Cycle Date: 05/13/2014 ; Life Cycle Status: Active ; Responsible Provider: SHEILA ZULETA RN; Vocabulary: ICD-9-CM Triage Chief Complaint Description : 68 year old female admits with nose bleed starting one hour ago. Pt was seen in ER 2 days ago with a nose bleed that had to be cauterized Information Given By : Patient Mode of Arrival ED : Private vehicle Track : Medical Languages : Algerian Treatments Prior to Arrival : None Is Patient Female and 13-50 no hysterectomy : No SHEILA ZULETA RN - 05/13/2014 6:25 AIRPLANE ELECTRICIAN Pain Assessment Pain Symptoms : No SHEILA ZULETA RN - 05/13/2014 6:25 AIRPLANE ELECTRICIAN ED Physician Notification Time ED Physician Notification Time : 05/13/2014 6:27 AIRPLANE ELECTRICIAN SHEILA ZULETA RN - 05/13/2014 6:25 AIRPLANE ELECTRICIAN JOHANN JOHANN Level 1 : No JOHANN Level 2 : No JOHANN Level 3 : Many SHEILA ZULETA RN - 05/13/2014 6:25 AIRPLANE ELECTRICIAN DCP GENERIC CODE Tracking Acuity : 2 -Emergent Tracking Group : [facility] ED SHEILA ZULETA RN - 05/13/2014 6:25 AIRPLANE ELECTRICIAN Allergy (As Of: 05/13/2014 06:27:24 AIRPLANE ELECTRICIAN) Allergies (Active) NKA Estimated Onset Date: Unspecified ; Created By: CARLEY ZIMMER; Reaction Status: Active ; Category: Drug ; Substance: NKA ; Type: Allergy ; Updated By: CARLEY ZIMMER; Reviewed Date: 05/10/2014 23:14CST ID Screen Drug Resistant Organism : No Travel Within Last 21 Days : No SHEILA ZULETA RN - 05/13/2014 6:25 AIRPLANE ELECTRICIAN Source: [facility] [employer] Document Id: [id number] AIRPLANE ELECTRICIAN!23 LANE ELECTRICIAN documented in this encounter Miscellaneous Notes Miscellaneous - Conversion, Historical Provider Ser - 05/13/2014 7:15 AM AIRPLANE ELECTRICIAN Coding Summary-Paper Based CODING DATE: 05/17/2014 FINAL CA [facility] STATUS: * Discharged to Home or Self Care PAYOR: Medicare ADMIT DX: 784.7 Epistaxis REASON FOR VISIT DX: 784.7 Epistaxis FINAL DX: PRINCIPAL: 784.7 Epistaxis SECONDARY: 401.9 Unspecified Essential Hypertension PROCEDURES DOCTOR NAME DATE 68137 Control nasal hemorrhage, CHRISTEN SHAIKH 05/13/2014 anterior, simple (limited cautery and/or packing) any method.. RT RIGHT SIDE (USED TO IDENTIFY PROCEDURES PERFORMED ON THE RIGHT SIDE OF THE BODY) NOTE: The code number assigned matches the documented diagnosis and / or procedure in the patient's chart. However, the narrative phrase printed from the coding software may appear abbreviated, or result in slightly different terminology. Coded By: ESTRELLA MEDLEY Date Saved: 05/17/2014 09:54 am Source: Pirq Document Id: [id number] Maribel - Mariam Sandy RSariahNSariah - 05/13/2014 7:03 AM CST Valuables/Belongings Valuables/Belongings Entered On: 05/13/2014 7:03 AIRPLANE ELECTRICIAN Performed On: 05/13/2014 7:03 AIRPLANE ELECTRICIAN by MARIAM SANDY RN Valuables/Belongings Belongings Sent Home With : patient MARIAM SANDY RN - 05/13/2014 7:03 AIRPLANE ELECTRICIAN [facility] Document Id: [id number] AIRPLANE ELECTRICIAN!3 LANE ELECTRICIAN Miscellaneous - Mariam Sandy RSariahN. - 05/13/2014 6:19 AM CST Facility Charge Ticket 2.0 11.0 DX Facility Charge Ticket 2.0 11.0 DX Entered On: 05/13/2014 7:19 AIRPLANE ELECTRICIAN Performed On: 05/13/2014 6:19 AIRPLANE ELECTRICIAN by MARIAM SANDY RN Facility Charge Ticket 2.0 11.0 DX ED Other Charges : Standard ED Encounter TVL Level Translated RTF : Nose bleed TVL:3 TVL Level for Facility Charge Ticket : Level 3 Arrival Mode Calc : 1 Mode of Arrival ED : Private vehicle [facility]x Mode of Arrival Interpreted : Standard [facility]x Process Management : None Lynx Order Management : None 30 Minutes Critical Care : No Nursing Notes RTF : Triage Forms ED Triage Assessment,05/13/14 06:25,SHEILA ZULETA RN Nursing Notes ED Primary Assessment,05/13/14 06:27,SHEILA ZULETA RN ED Pain Assessment,05/13/14 07:03,MARIAM SANDY RN [facility]x Nursing Assessment : Triage and 1-2 nursing assessments Lynx Disposition : Discharge Lynx Total Points with Diagnosis Control : 5 Lynx Visit Level : 07437 Level 3 Treatments Prior to Arrival : None MARIAM SANDY RN - 05/13/2014 7:18 AIRPLANE ELECTRICIAN Source: Pirq Document Id: [id number] AIRPLANE ELECTRICIAN!17 LANE ELECTRICIAN documented in this encounter Plan of Treatment Not on filedocumented as of this encounter Visit Diagnoses Not on filedocumented in this encounter Additional Health Concerns Assessment Noted Time PHQ-9 Depression Total Score: 3 05/13/2013 2:06 PM AIRPLANE ELECTRICIAN documented as of this encounter
--- OUTSIDE RECORDS SUMMARY | 2021-12-22 21:56 | XMS_ITS | Encounter Summary ---
:1945 Author Organization [facility] Address [address] [place] [address] Care Team Providers Name Role Phone Unavailable Primary Care Provider Unavailable Encounter Details Date Type Department Care Team Description 01/09/2010 Hospital Encounter HX [facility] Marc Alexis, INPT/OBSRV M.D. [id number] [phone] (Wo rk) Social History Tobacco Use Types Packs/Day Years Used Date Smoking Tobacco: Never Assessed Sex Assigned at Date Recorded Not on file documented as of this encounter Plan of Treatment Not on filedocumented as of this encounter Visit Diagnoses Not on filedocumented in this encounter
--- OUTSIDE RECORDS SUMMARY | 2021-12-22 21:56 | XMS_ITS | Encounter Summary ---
:1945 Author Organization [facility] Address [address] [place] [address] Care Team Providers Name Role Phone Unavailable Primary Care Provider Unavailable Encounter Details Date Type Department Care Team Description 07/07/2009 Hospital Encounter HX [facility] Marc Alexis, INPT/OBSRV M.D. [id number] [phone] (Wo rk) Social History Tobacco Use Types Packs/Day Years Used Date Smoking Tobacco: Never Assessed Sex Assigned at Date Recorded Not on file documented as of this encounter Plan of Treatment Not on filedocumented as of this encounter Visit Diagnoses Not on filedocumented in this encounter
--- OUTSIDE RECORDS SUMMARY | 2021-12-22 21:56 | XMS_ITS | Encounter Summary ---
:1945 Author Organization [facility] Address [address] [place] [address] Care Team Providers Name Role Phone Unavailable Primary Care Provider Unavailable Encounter Details Date Type Department Care Team Description 07/12/2016 Hospital Encounter HX [facility] Kaylin Mcfadden, PHOTOGRAPHIC EDITOR, C.N.P. [address] [place], [place] [address] (Wo rk) Social History Tobacco Use Types Packs/Day Years Used Date Smoking Tobacco: Former Sex Assigned at Date Recorded Not on file documented as of this encounter Last Filed Vital Signs Vital Sign Reading Time Taken Comments Blood Pressure 152/94 07/12/2016 12:23 PM CDT Pulse 82 07/12/2016 12:23 PM CDT Temperature - - Respiratory Rate 18 07/12/2016 12:23 PM CDT Oxygen Saturation - - Inhaled Oxygen [...] documented as of this encounter Progress Notes Ariella Mcfadden, R.N. - 07/12/2016 12:51 PM CDT Clinic Full Note CHIEF COMPLAINT/REASON FOR VISIT Cough. Nasal congestion. HISTORY OF PRESENT ILLNESS Kristen is a very pleasant 70-year-old female who comes into the clinic today with concerns related toa cough and nasal congestion intermittently for 1 year. She reports she recently completed oral azithromycin with no improvement related to her symptoms. She reports her cough is non productive, but reports thick nasal drainage. She reports she has used OTC Ester for symptom management. She deniesany heart palpitations, chest pain or shortness of breath. She is here today for further evaluation.She has no other concerns today. MEDICATIONS Aleve, 2 tab(s), PO, PRN, PRN Flonase, 1 spray(s), Nasal, Daily, PRN Misc. Supply, See Instructions, OTC YEAST INF MEDICATION nystatin 100,000 units/g topical powder, 1 óscar, to affected area, Topical, 3xDay, 0 refills ALLERGIES NKA PAST MEDICAL HISTORY Chronic Body Mass Index (BMI) 70 And Over Adult Hypertension (HTN) NOS Morbid Obesity Body Mass Index (BMI) >40 Adult Rosacea NOS Historical No historical problems SOCIAL HISTORY Date Time: 07/12/2016 12:23 Tobacco: Smoking Status: Former smoker Exposure: Care provider denies smoking in home, Other: former 20yrs ago. Alcohol: Use: No Results Found Recreational Drugs: Use: None Type: No Results Found FAMILY HISTORY Mother: Negative: Father: Negative: SYSTEMS REVIEW As per HPI. VITAL SIGNS HR: 82 RR: 18 BP: 152 / 94 SpO2: 98% PHYSICAL EXAMINATION GENERAL: Alert and oriented. No acute distress. HEAD: Normocephalic/atraumatic. Canals patent, TMs normal. Oropharynx without lesion of mucosa. Pharyngeal rises symmetrically without exudate. NECK: No nodes, no thyromegaly. HEART: Regular rate and rhythm. No murmurs, gallops or rubs noted. LUNGS: Clear to auscultation bilaterally. No expiratory wheeze. No accessory muscles of respirationnoted. ABDOMEN: Nontender to palpation. No hepato-splenomegaly. No mass. Normal bowel sounds in all 4 quadrants. EXTREMITIES: No neurovascular compromise. No cyanosis, clubbing or edema. NEUROLOGICAL: Cranial nerves II-VII grossly intact and symmetric. She ambulates with a steady gait. LAB RESULTS Hgb 14.5 g/dL 07/12/2016 13:20 CDT Hct 44.2 % 07/12/2016 13:20 CDT WBC 10.7 x10(9)/L 07/12/2016 13:20 CDT (High) RBC 5.35 x10(12)/L 07/12/2016 13:20 CDT (High) MCV 82.6 fL 07/12/2016 13:20 CDT RDW 14.5 % 07/12/2016 13:20 CDT Platelet 296 x10(9)/L 07/12/2016 13:20 CDT Neutro Absolute 7.46 10(9)/L 07/12/2016 13:20 CDT (High) Lymph Absolute 2.53 x10(9)/L 07/12/2016 13:20 CDT Davie Absolute 0.48 x10(9)/L 07/12/2016 13:20 CDT Eos Absolute 0.23 x10(9)/L 07/12/2016 13:20 CDT Baso Absolute 0.04 x10(9)/L 07/12/2016 13:20 CDT DIAGNOSTIC RESULTS 12-Jul-2016 13:13:00 Exam: Chest-- 2 Views Indications: Hx of cough intermittently for 1 yr 12-Jul-2016 13:26 CA EXAM: Chest 2 views IMPRESSION: No cardiomegaly or lung infiltrate. Minimal basilar atelectasis. Degenerative changes of the spine. Merry Lara MD 12-Jul-2016 13:26 [1] IMPRESSION/REPORT/PLAN Congestion Nasal Her lab work showed a slightly elevated white blood cell count, but chest XR was negative. I prescribed oral doxycycline twice daily for symptom management related to her lab work and length of symptoms. Ordered: OV Est Pt Level 4 - 99711 - 25 min Cough NOS See #1 above. Ordered: CBC (includes Auto Differential) OV Est Pt Level 4 - 85127 - 25 min XR Chest 2 Views Fatigue NOS See #1 above. She was instructed to contact the clinic with worsening or no improvement in symptoms. All questions were answered. She left in no acute distress. A total of 25 minutes with 20 minutes used for counseling and coordination of care. Ordered: OV Est Pt Level 4 - 37220 - 25 min XR Chest 2 Views FOOTNOTES [1]XR Chest 2 Views; MITALI OWEN 07/12/2016 13:11 CDT Electronically Signed By: ARIELLA MCFADDEN NP On: 08/10/2016 06:37 PM Source: [facility] POWERCHART Document Id: [id number] documented in this encounter Miscellaneous Notes Miscellaneous - Shira Shaw - 07/13/2016 8:38 AM CDT XR Results Document Contains Addenda Addendum by FERMIN LUTZ RN on July 16, 2016 10:00:57 CDT LM re: details below. Addendum by VANESSA WOO RN on July 13, 2016 11:13:42 CDT LM for patient to call clinic for message as below. Addendum by ARIELLA MCFADDEN SOURCING SPECIALIST on July 13, 2016 09:18:11 CDT From: ARIELLA MCFADDEN SOURCING SPECIALIST To: CA RN Nurse; Sent: 07/13/2016 09:18:11 CDT Subject: RE: XR Results Please call patient and let her know that her chest XR was negative for pneumonia, but her WBC levelwas slightly elevated. I ordered doxy 2x daily for 10 days for symptom management. PCP elsewhere. She was quite demanding during her exam. Thanks! From: SHIRA SHAW To: ARIELLA MCFADDEN SOURCING SPECIALIST; Sent: 07/13/2016 08:38:30 CDT ! Subject: XR Results Patient called very upset and left me a voice mail this morning. She wants to know what her chest xray and blood results are. She states he symptoms have been going on for along time and if nothing wasfound what are you going to do next. She would like to be tested for allergies or something. When calling with the results you are able to tell whomever answers the phone. Per patients request. Please advise. Source: [facility] POWERCHART Document Id: [id number] Electronically signed by Lillian [facility] Sales Operations Consultant [id number] at 08/28/2016 12:49 PM CDT Miscellaneous - Teresa Edmonds L.PSariahNSariah - 07/12/2016 12:23 PM CDT Adult Software Development Analyst Intake/History Adult Software Development Analyst Intake/History Entered On: 07/12/2016 12:27 CDT Performed On: 07/12/2016 12:23 CDT by TERESA EDMONDS Intake Chief Complaint : Bad cough Ambulatory Intake Additional Information : finished Zpak today Peripheral Pulse Rate : 82 /min Respiratory Rate : 18 /min Heart Rhythm : Regular Systolic Blood Pressure : 152 mmHg (HI) Diastolic Blood Pressure : 94 mmHg (>HHI) NIBP Mean : 113 mmHg BP Location : Left upper extremity Blood Pressure Cuff Size : Large SpO2 : 98 % TERESA EDMONDS - 07/12/2016 12:23 CDT General Info Information Given By : Patient Languages : Lao Is Patient Female and 13-50 no hysterectomy : No TERESA EDMONDS - 07/12/2016 12:23 CDT Subjective Pain Symptoms : No TERESA EDMONDS - 07/12/2016 12:23 CDT Dependent Habits Exposure to Tobacco Smoke : Care provider denies smoking in home, Other: former 20yrs ago. Smoking Status : Former smoker Tobacco 2A : Yes Tobacco Use/Currently Using : No Tobacco Use/Last 30 Days : No Tobacco Use/Last 12 months : No TERESA EDMONDS - 07/12/2016 12:23 CDT Recreational Drug Use Grid Drug Use : None TERESA EDMONDS - 07/12/2016 12:23 CDT Source: [facility] Pyron SolarCHART Document Id: [id number] CDT!29 documented in this encounter Plan of Treatment Not on filedocumented as of this encounter Procedures Procedure Name Priority Date/Time Associated Diagnosis Comme nts AUTOMATED Routine 07/12/2016 1:20 PM Results f or this DIFFERENTIAL, B CDT procedure ar e in the results section. CBC WITH Routine 07/12/2016 1:20 PM Results f or this DIFFERENTIAL, B CDT procedure ar e in the results section. documented in this encounter Results (ABNORMAL) Automated Differential (07/12/2016 1:20 PM CDT) [facility] gist Method Time Signature Absolute 7.46 (H) 1.70 - POWERCHART Neutrophils 7.00 109L Lymphocytes 2.53 0.90 - POWERCHART 2.90 X109L Monocytes 0.48 0.30 - POWERCHART 0.90 X109L Eosinophils 0.23 0.05 - POWERCHART 0.50 X109L Absolute 0.04 0.00 - POWERCHART Basophil 0.30 X109L Specimen Anatomical Collection Method Collection Time Receive d Time (Source) Location / / Volume Laterality Blood 07/12/2016 1:20 PM 7 1:20 CDT PM CDT Ariella Mcfadden APRN, C.N.P. LAB BLOOD ADD-ON Performing Organization Address City/State/[facility] Code Phon e Number POWERCHART (ABNORMAL) CBC with Differential (07/12/2016 1:20 PM CDT) Analysis Performed At Patho logist Time Signature Leukocytes 10.7 (H) 3.4 - 10.5 POWERCHART X109L Erythrocytes 5.35 (H) 3.90 - POWERCHART 5.03 [id number] Hemoglobin 14.5 12.0 - POWERCHART 15.5 GDL Hematocrit 44.2 34.9 - POWERCHART 44.5 MCV 82.6 81.6 - POWERCHART 98.3 FL HX RDW 14.5 11.9 - POWERCHART 15.5 Platelet Count 296 150 - 450 POWERCHART X109L Specimen (Source) Anatomical Collection Method Collection Time Re ceived Time Location / / Volume Laterality Blood 07/12/2016 1:20 PM CDT Ariella Mcfadden APRN, C.N.P. LAB BLOOD ADD-ON Performing Organization Address City/State/[facility] Code Phon e Number POWERCHART documented in this encounter Visit Diagnoses Not on filedocumented in this encounter Additional Health Concerns Assessment Noted Time PHQ-9 Depression Total Score: 3 05/13/2013 2:06 PM MD PHYSICIAN DERMATOLOGIST documented as of this encounter
--- OUTSIDE RECORDS SUMMARY | 2021-12-22 21:56 | XMS_ITS | Encounter Summary ---
:1945 Author Organization [facility] Address [address] [place] [address] Care Team Providers Name Role Phone Suhail Lemus M.D. Primary Care Provider Encounter Details Date Type Department Care Team Description 07/28/2012 Historical Ophthalmology RST OPH Agnieszka Harrison M.D. Social History Tobacco Use Types Packs/Day Years Used Date Smoking Tobacco: Never Assessed Sex Assigned at Date Recorded Not on file documented as of this encounter Progress Notes Agnieszka Harrison M.D. - 07/28/2012 9:46 AM CDT Eye General CHIEF COMPLAINT f/u scleral pigmentation HISTORY OF PRESENT ILLNESS States vision unchanged (blurry-ou) since last exam. Denies pain, irritation, tearing, flashes. Intermittent floaters (right eye) for several years. States she has not started (picked up) her doxycycline yet. 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 Plan: Continue doxy, start warm compresses BID, artificial tears QID #3 Pigmented sclera, left Normal. No intraocular areas of pigmentation or masses. 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 PCP - General Family Medicine 09/19/[address] [place] [phone] documented as of this encounter
--- OUTSIDE RECORDS SUMMARY | 2021-12-22 21:56 | XMS_ITS | Encounter Summary ---
:1945 Author Organization [facility] Address [address] [place] [id number] Care Team Providers Name Role Phone Suhail Lemus M.D. Primary Care Provider Reason for Visit Reason Comments Establish Care lab questions Appointment Request (Routine) - Closed Specialty Diagnoses / Procedures Referred By Contact Refer red To Contact Family Medicine Referral ID Status Reason Start Date Expiration Date Visits Requ ested Visits Authorized [id number] Closed 09/19/2017 09/19/2018 1 Encounter Details Date Type Department Care Team Description 09/30/2017 Office Visit Department of Suhail Hwang Hy pertension Essential Primary (Primary Dx); Roni Victoria M.D. Screening Cancer Colon; [facility], [place] [address] Screenin g Test Laboratory; [facility] Morbid Obesity Body Mass Index Greater T pulido Or Equal To 40 Adult (HCC); [place], [place] Apnea Sleep Obstructive [address] [place] [id number] [place], [place] [phone] (Work) [phone] Social History Tobacco Use Types Packs/Day Years Used Date Smoking Tobacco: Never Smokeless Tobacco: Never Alcohol Use Standard Drinks/Week Comments No 0 (1 standard drink = 0.6 oz pure alcoho l) Sex Assigned at Date Recorded Not on file documented as of this encounter Last Filed Vital Signs Vital Sign Reading Time Taken Comments Blood Pressure 189/81 09/30/2017 2:11 PM CDT Pulse 85 09/30/2017 2:11 PM CDT Temperature - - Respiratory Rate - - Oxygen Saturation 96% 09/30/2017 2:11 PM CDT Inhaled Oxygen Concentration - - Weight - - Height - - Body Mass Index - - documented in this encounter H&P Notes Suhail Lemus M.D. - 09/30/2017 2:30 PM CDT SUBJECTIVE CHIEF COMPLAINT / REASON FOR VISIT Kristen Pederson is a 72 y.o. female who presents for evaluation of Establish Care (lab questions ). HISTORY OF PRESENT ILLNESS Patient is a pleasant 72-year-old female who presents to clinic today to establish care. She has noted hypertension with out medication treatment. She also has a history of recurrent epistaxis which can be severe. Most recent episode occurred in May while on a trip to [place]. He was also noted at that time that her blood pressure was significantly elevated. She is provided 1 dose of amlodipine which did help her blood pressures and control her symptoms. She is also working closely with weight loss. She has been experiencing a difficult time with dietary control. She is requesting preventive health screenings at today's visit. Patient does have a history of hepatitis at a young age which reportedly she states was cleared. The following portions of the patient's history were reviewed and updated as appropriate: allergies,current medications, family history, medical history, social history, surgical history and problem list. REVIEW OF SYSTEMS Constitutional: Negative for fatigue, fever, loss of appetite, night sweats and weight loss of more than 10 pounds. Skin: Negative for skin rash and change in mole or skin spot. Eyes: Negative for double vision, visual problems and sudden loss of vision. ENT: Negative for difficulty hearing, persistent hoarse voice and sinus congestion. Respiratory: Negative for coughing up blood, dry cough, dyspnea, sleep disturbances due to breathingand wheezing. Cardiovascular: Negative for chest pain, pressure or tightness, swelling in the legs or feet, rapid or fluttering heart beat, pain in the calf muscles when walking and shortness of breath when lying flat. Gastrointestinal: Negative for abdominal (belly) pain or cramping, blood in stool, constipation, diarrhea, heartburn, nausea, vomiting and difficulty swallowing. Genitourinary: Negative for incontinence, difficulty urinating, pain with urination, hematuria and urgency. Hematologic: Negative for bruises or bleeds easily. Musculoskeletal: Negative for back pain, joint swelling and muscle pain/stiffness. Neurological: Negative for loss of consciousness, light-headedness, excessive daytime sleepiness, loss of balance or tendency to fall easily and headaches. Psychiatric/Behavioral: Negative for excessive daytime sleepiness/tiredness, snores loudly, stop breathing, choking, or gasping while asleep, sleep disturbance and little interest or pleasure in doing things over past two weeks. OBJECTIVE PHYSICAL EXAM Constitutional: She is oriented to person, place, and time. She appears well-developed. HENT: Head: Normocephalic and atraumatic. Eyes: Conjunctivae and EOM are normal. Pupils are equal, round, and reactive to light. Neck: Normal range of motion. Neck supple. Cardiovascular: Normal rate, regular rhythm, normal heart sounds and intact distal pulses. She exhibits no edema. Exam reveals no gallop and no friction rub. No murmur heard. Pulmonary/Chest: Effort normal and breath sounds normal. No respiratory distress. She has no wheezes. She has no rales. She exhibits no tenderness. Abdominal: Soft. Bowel sounds are normal. She exhibits no distension. There is no tenderness. Musculoskeletal: Normal range of motion. Neurological: She is alert and oriented to person, place, and time. Skin: Skin is warm. Capillary refill takes less than 2 seconds. Psychiatric: She has a normal mood and affect. Her behavior is normal. Judgment and thought content normal. Nursing note and vitals reviewed. ASSESSMENT / PLAN #1 Hypertension Essential Primary Patient blood pressure significantly elevated at today's visit. Will start amlodipine 5 mg daily as she tolerated this recently. Return to clinic in 1 months time for ongoing evaluation. Laboratory evaluation requested - Comprehensive Metabolic Panel #2 Screening Cancer Colon Patient request: Guard for colon cancer screening. - Cologuard - Non RST #3 Screening Test Laboratory HCV testing requested. - HCV Ab Scrn w/Reflex to HCV PCR, Serum; Future; Expected date: 09/30/2017 - HCV Ab Scrn w/Reflex to HCV PCR, Serum #4 Morbid Obesity Body Mass Index Greater Than Or Equal To 40 Adult (HCC) Discussed dietary lifestyle modifications to help with weight loss. Monitor and encourage at each visit. #5 Apnea Sleep Obstructive Patient was diagnosed with sleep apnea mild in 2009. She has not been able to tolerate full face mask CPAP. Has not utilized for several years. She continues with significant snoring and daytime somnolence. Have requested repeat overnight study with CPAP initiation with consideration for nasal treatment. Monitor. - Polysomnography (PSG): Split Night (STANDARD); Early PAP Initiation (Please consider nasal cpap); Future; Expected date: 10/01/2017 Other orders - Tdap: Ljkbjmt-ahfozqwevl-irnouljoq pertussis vaccine (7 years and older) - Family Medicine office visit (clinic) - Self; Future; Expected date: 09/30/2017 - albuterol (VENTOLIN HFA) 90 mcg/actuation inhaler; Inhale 2 puffs every 4 (four) hours as needed for wheezing or shortness of breath., Starting Sat09/30/2017, Until Sat09/30/2018, Normal - amLODIPine (NORVASC) 5 mg tablet; Take 1 tablet (5 mg total) by mouth daily., Starting Sat09/30/2017, Until Sat09/30/2018, Normal documented in this encounter Plan of Treatment Not on filedocumented as of this encounter Procedures Procedure Name Priority Date/Time Associated Diagnosis Comme nts COLOGUARD Routine 10/06/2017 5:00 Screening Cancer Results for this PM CDT Colon procedure are i n the results section. HCV AB SCRN W/REFLEX Routine 09/30/2017 3:08 Screening Test Re sults for this TO HCV PCR, S PM CDT Laboratory procedure are in the results section. COMPREHENSIVE Routine 09/30/2017 3:08 Hypertension Results for this METABOLIC PANEL, S/P PM CDT Essential Primary pr ocedure are in the results section. documented in this encounter Results Cologuard - Non RST (10/06/2017 5:00 PM CDT) [facility] gist Method Time Signature Result Negative Not Applicable 10/11/2017 [facility] 7:21 AM CDT LABORATORIES Comment: A negative result indicates a lower like lihood that colorectal cancer (CRC) or advanced aranza сергей (pre-cancer) is present. Periodic colorectal cancer scre ening is recommended at an interval, and with a m ethod appropriate for the patient. Test Type: Composite algorithmic analysi s of stool DNA-biomarkers with hemoglobin immunoass ay. ?? Quantitative values of individual biomarkers are not reportable and are not associated with individual biomarker result reference ranges. Precautions and Limitations: Cologuard i s intended for colorectal cancer screening of adults of either sex, 50 years or older, who are at typical avera ge-risk for colorectal cancer. A negative Cologuard test result does not guarantee the absence of colorectal cancer or advanced adenoma (pre-cancer). Patients with a ne gative Cologuard test result should be advised to continu e participating in a colorectal cancer screening program. C ologuard may produce a positive result, even though a colonoscopy may not find colorectal cancer or precancero us polyps. The performance of Cologuard has been establ ished in a cross sectional study (i.e., single point in t santosh). Performance has not been evaluated in adults who hav e been previously tested with Cologuard or in patients les s than 50 years of age. Cologuard has been approved for use by the [place].S. FDA. Cologuard performance data in a [facility],000 [facility] pivotal study using colonoscopy as the reference method can be accessed at the following location: [email or web address]/results. ??Additional description of the Cologuard test process, warnings and pre cautions can be found at [email or web address].com. Rx Only. Specimen Anatomical Collection Method Collection Time Receive d Time (Source) Location / / Volume Laterality Stool (Stool) 10/06/2017 5:00 PM 10/09/19 18 CDT 11:50 AM CDT Suhail Lemus M.D. LAB BODY FLUIDS AND STOOLS O RDERABLES Performing Organization Address City/State/ZIP Code Phon e Number [facility] [address] [place] [address] 13 Comprehensive Metabolic Panel (09/30/2017 3:08 PM CDT) athologist Signature Potassium, S 4.2 3.6 - 5.2 09/30/2017 [facility] mmol/L 3:54 PM CDT [facility] Sodium, S 142 135 - 145 09/30/2017 [facility] mmol/L 3:54 PM CDT [facility] Chloride, S 103 98 - 107 09/30/2017 [facility] mmol/L 3:54 PM CDT [facility] Bicarbonate, S 29 22 - 29 09/30/2017 [facility] mmol/L 3:54 PM [facility] Anion Gap 10 7 - 15 09/30/2017 [facility] 3:54 PM [facility] BUN (Blood Urea 14 6 - 21 09/30/2017 [facility] Nitrogen), S mg/dL 3:54 PM [facility] Creatinine 0.88 0.59 - 09/30/2017 [facility] 1.04 mg/dL 3:54 PM [facility] eGFR-Non 66 >=60 09/30/2017 [facility] Black/ mL/min/BSA 3:54 PM [facility] Comment: ----ADDITIONAL INFORMATION---- Estimated GFR calculated using the 2009 CKD_EPI creatinine equation. eGFR-Black/ 76 >=60 mL/min/BSA 2017 3:54 PM [facility] Comment: ----ADDITIONAL INFORMATION---- Estimated GFR calculated using the 2009 CKD_EPI creatinine equation. Calcium, Total, S 9.4 8.8 - 10.2 09/30/2017 3:54 PM [facility] mg/dL [facility] Glucose, S 124 70 - 140 mg/dL 09/30/2017 3:54 PM [facility] Protein, Total, S 7.0 6.3 - 7.9 g/dL 09/30/2017 3:54 P M [facility] Albumin, S 3.9 3.5 - 5.0 g/dL 09/30/2017 3:54 PM [facility] Aspartate Aminotransferase 34 8 - 43 U/L 09/30/2017 3 :54 PM [facility] (AST), S [facility] Alkaline Phosphatase, S 123 55 - 142 U/L 09/30/2017 3: 54 PM [facility] Alanine Aminotransferase 33 7 - 45 U/L 09/30/2017 3:5 4 PM [facility] ([facility]), S [facility] Bilirubin, Total, S 0.3 <=1.2 mg/dL 09/30/2017 3:54 PM [facility] CDT [facility] Specimen Anatomical Collection Method Collection Time Receive d Time (Source) Location / / Volume Laterality Blood (Blood, 09/30/2017 3:08 PM 10/01/19 18 3:18 Venous) CDT PM CDT Suhail Lemus M.D. LAB BLOOD ADD-ON Performing Organization Address City/[facility]/ZIP Code Phon e Number [facility] [id number] [place] [id number] [place] [address] LAB HCV Ab Scrn w/Reflex to HCV PCR, Serum (09/30/2017 3:08 PM CDT) [facility] gist Method Time Signature HCV Ab Nonreactive Nonreactive 10/01/2017 [facility] Screen, S 10:53 AM CDT [facility] Specimen Anatomical Collection Method Collection Time Receive d Time (Source) Location / / Volume Laterality Blood (Blood, 09/30/2017 3:08 PM 10/01/19 18 Venous) CDT 10:06 PM CDT Narrative [facility] - 10/01/2017 10:53 AM CDT Specimen Information: Specimen ID: [id number] Specimen Type: Blood Specimen Collection Start Date: 10/01/19 18 ??3:08 PM Specimen Received Date: 09/30/2017 10:06 PM Specimen ID: [id number] Specimen Type: Blood Specimen Collection Start Date: 10/01/19 18 ??3:09 PM Specimen Received Date: 09/30/2017 10:06 PM Suhail Lemus M.D. LAB MICROBIOLOGY - BLOOD ORD ERABLES Performing Organization Address City/State/ZIP Code Phon e Number [facility] [address] 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 PCP - General Family Medicine 09/19/[address] [id number] documented as of this encounter
--- OUTSIDE RECORDS SUMMARY | 2021-12-22 21:56 | XMS_ITS | Encounter Summary ---
:1945 Author Organization [facility] Address [address] [place] [address] Care Team Providers Name Role Phone Suhail Lemus M.D. Primary Care Provider Encounter Details Date Type Department Care Team Description 09/23/2014 Historical Ophthalmology RST OPH Alicia Lay M.D. Social History Tobacco Use Types Packs/Day Years Used Date Smoking Tobacco: Never Assessed Sex Assigned at Date Recorded Not on file documented as of this encounter Progress Notes Alicia Lay M.D. - 09/23/2014 8:46 AM CDT Eye General CHIEF COMPLAINT sore, blurred vision, both HISTORY OF PRESENT ILLNESS Patient states soreness started couple years since last visit in July 2012. Blurred vision; both eyes; x 2 years; constantly; symptoms are moderate, occur primarily when reading small print. Pain; both eyes; x 2 years; occasionally; symptoms reported at level of 5/10. Patient states feels like sand in both eyes and clears up when touching it. Patient states no help using art tears eye drops. Patient states more sensitive to light with bright lights. SCB: She has had sand in her eyes for a couple years along with blurred vision. At present she wakes up in the morning and has to use a warm wash cloth to see clearly again. When she tried artificialtears a few times a day for months and did not have improvement in her symptoms. Use doxycycline which helped the skin rosacea but then stopped. 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 Plan: Discussed in detail that her symptoms are surface related and will take multiple avenues to improve. Importantly, symptoms resolved with proparacaine drops. Start warm compresses 2-3 times per week or use a mask like [employer]- pamphlet on meibomian gland dysfunction dispensed Start preservative free artificial tears every 2-3 hours for 2 weeks. If this helps, she can return for option of punctal plugs. She can continue doxycycline (which she has not been using for her rosacea) which can help with her ocular rosacea if she tolerates the medication. Genteal gel at night Dry eye educational pamphlet dispensed #3 Left scleral melanocytosis Discussed that patient requires dilated exams every 1-2 years. Patient today declined gonioscopy or dilated exam and would like to do this locally. Advised that she have this done this year. #4 Floppy eyelid syndrome #5 Sleep apnea on CPAP This also contributes to her symptoms. 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 PCP - General Family Medicine 09/19/[address] [place] [phone] documented as of this encounter
--- OUTSIDE RECORDS SUMMARY | 2021-12-22 21:56 | XMS_ITS | Encounter Summary ---
:1945 Author Organization [facility] Address [address] [place] [id number] Care Team Providers Name Role Phone Unavailable Primary Care Provider Unavailable Encounter Details Date Type Department Care Team Description 08/28/2014 Hospital Encounter HX [facility] ED Jf Hale Jr., M.D. 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 - 08/28/2014 10:37 PM CDT ED Discharge Instructions [address] [address] Name: NOVA PEDERSON Date of : 1945 12:00 AM Visit Date: 08/28/2014 9:24 PM [facility] Number: [id number] Address: [address] [place] [phone] Primary Care Provider: JERICHO ORTIZ IMPORTANT: [facility] in [place] would like to thank you for allowing us to assist you with your healthcare needs. The following includes patient education materials and informationregarding your injury/illness. Diagnosis: Anxiety NOS; Obesity Hypoventilation Syndrome Body Mass Index (BMI) 30-40 Follow-Up Instructions: With: Address: When: Follow up with primary care provider Within 1 - 2 days Comments: With: Address: When: UNASSIGNED - [place] PCP Within As Needed Comments: Your Upcoming Appointments: Date Time Location Provider No Appointments found Patient Education Materials: Stress Reaction Anxiety is the feeling we all get when we think something bad might happen. It is a normal response to stress and usually causes only a mild reaction. When anxiety becomes more severe, emotions may interfere with daily life. In some cases, you may not even be aware of what it is youre anxious about! During an anxiety reaction, you may feel like you are helpless, nervous, depressed or irritable. Your body may show signs of anxiety in many ways. You may experience dry mouth, shakiness, dizziness, weakness, trouble breathing, chest pressure, headache, nausea, diarrhea, tiredness, inability to sleep or sexual problems. Home Care: 1) Try to locate the sources of stress in your life. They may not be obvious! These may include: -- Daily hassles of life which pile up (traffic jams, missed appointments, car troubles, etc.) -- Major life changes, both good (new baby, job promotion) and bad (loss of job, loss of loved one) -- Overload: feeling that you have too many responsibilities and can't take care of all of them at once -- Feeling helpless, feeling that your problems are beyond what youre able to solve 2) Notice how your body reacts to stress. Learn to listen to your body signals. This will help you take action before the stress becomes severe. 3) When you can, do something about the source of your stress. (Avoid hassles, limit the amount of change that happens in your life at one time and take a break when you feel overloaded). 4) Unfortunately, many stressful situations cannot be avoided. It is necessary to learn HOW TO MANAGE STRESS better. There are many proven methods that will reduce your anxiety. These include simple things like exercise, good nutrition and adequate rest. Also, there are certain techniques that are helpful: relaxation and breathing exercises, visualization, biofeedback and meditation. For more information about this, consult your doctor or go to a local bookstore and review the many books and tapes available on this subject. Follow Up If you feel that your anxiety is not responding to self-help measures, contact your doctor or make an appointment with a counselor. Get Prompt Medical Attention if any of the following occur: -- Your symptoms get worse -- Chest pain or trouble breathing -- Severe headache not relieved by rest and mild pain reliever -- Rapid or irregular heartbeat, fainting ?? [id number] [facility], [address] [place] [address]. All rights reserved. This information is not intended as a substitute for professional medical care. Always follow your healthcare professional's instructions. Deciding on Bariatric Surgery Is excess weight affecting your life and your health? Bariatric surgery (also called obesity surgery) may help you reach a healthier weight. This surgery alters your digestive system. For the surgery to work, you must change your diet and lifestyle. In most cases, the surgery is not reversible. So if youre considering surgery, learn all you can about it before you decide. Qualifying for Surgery Surgery is not for everyone. To qualify: ?? You must have a BMI of 40 or more, or a BMI of 35 or more (see box below) plus a serious health problem such as type 2 diabetes, high blood pressure, or sleep apnea. ?? You must be healthy enough to have surgery. ?? You may be required to have a psychological evaluation. ?? You must have tried to lose weight by other means. Setting Realistic Expectations The goal of bariatric surgery is to help you lose over half of your excess weight. This can improve or prevent health problems. This surgery is not done for cosmetic reasons. Keep in mind that: ?? Other weight-loss methods should be tried first. Surgery is only an option if other methods dont work. ?? Surgery is meant to be permanent. You will need to change how you eat for the rest of your life. ?? You must commit to eating less and being more active after surgery. If you dont, you will not lose or keep off the weight. ?? You wont reach a healthy weight right away. Most weight is lost steadily during the first year ortwo after surgery. ?? Most likely, you wont lose all your excess weight. But you can reach a much healthier weight. Obesity is measured by a formula called body mass index (BMI), which is based on your height and weight. A healthy BMI is about 18 to 25. A BMI of 30 or more signals obesity. A BMI of 40 or more reflects severe (morbid) obesity. ?? [id number] [facility], [address] [place] [address]. All rights reserved. This information is not intended as a substitute for professional medical care. Always follow your healthcare professional's instructions. ED Tests and Procedures: Order Status Discharge Prescriptions & Home Medications: Medication/Strength Dose Route Frequency Indications/Special Instructions/Comments/Notes LORazepam (Ativan 0.5 mg oral tablet) 0.5 mg Oral three times a day as needed for Anxiety fluocinonide topical (Lidex 0.05% topical cream) 1 óscar Topical two times a day *sodium chloride nasal (Momence Saline 0.65% nasal solution) 2 drop(s) Nasal every 2 hours *sodium chloride nasal (Momence Saline 0.65% nasal gel) 1 spray(s) Nasal [...] to take those medications. NOVA PEDERSON or karynaee has reviewed the home medications you have [...] arrange a ride home with a responsible alliance party. MARY CARMEN Bell ANNA CATHERINE , or responsible alliance party have received this information and my questionshave been answered. I have discussed any challenges I see with this plan with the nurse or physician. Patient Signature or Responsible Constitution Party/Relationship Date Time Provider Signature Date Time [...] arrange a ride home with a responsible alliance party. I, NOVA PEDERSON , or responsible alliance party have received this information and my questionshave been answered. I have discussed any challenges I see with this plan with the nurse or physician. Patient Signature or Responsible Constitution Party/Relationship Date Time Provider Signature Date Time This document has images extracted. Please consider using [employer] for all your patient education needs. Source: [facility] POWERCHART Document Id: [id number] Carolina Ferris RCharles. - 08/28/2014 10:37 PM CDT ED Depart Summary [facility] Emergency Department Clinical Discharge Summary PERSON INFORMATION Name NOVA PEDERSON Age 68 Years 1945 12:00 AM Sex Female Language Canadian PCP PCP, UNASSIGNED - [place] Marital Status Single N [id number] Visit Id Visit Reason Shortness of breath; Shortness of breath; Shortness of Breath Specialty Enc Type Emergency Med Service Emergency Medicine Referred by Track Group [facility] ED Discharge 08/28/2014 10:30 PM Tracking Id [id number] Checkout 08/28/2014 10:30 PM Checkin 08/28/2014 9:24 PM Acuity 3 -Urgent Dispo Type * Discharged to Home or Self Care Arrival 08/28/2014 9:24 PM Reg Status Complete LOS 000 01:06 Address: [address] [place] [phone] Comment: PROVIDER INFORMATION Provider Role Provider Contact Time DARNELL HALE MD ED Provider 08/28/14 21:32 KATIE ELKINS RN ED Nurse 08/28/14 21:38 DIAGNOSIS Anxiety NOS; Obesity Hypoventilation Syndrome Body Mass Index (BMI) 30-40 Comment: PATIENT EDUCATION INFORMATION Instructions: ANXIETY REACTION; Deciding on Bariatric Surgery Follow up: With: Address: When: Follow up with primary care provider Within 1 - 2 days Comments: With: Address: When: UNASSIGNED - [place] PCP Within As Needed Comments: Source: [email or web address] Document Id: [id number] documented in this encounter Medications at Time of Discharge Medication Sig Dispensed Refills Start Date End Date naproxen sodium 220 mg Take 1 capsule by 0 2011 capsule mouth. HYDROcodone-acetaminophe Take 1-2 tablets by 0 09/14/2020 n (NORCO) 10-325 mg per mouth. tablet documented as of this encounter ED Notes Katie Elkins R.N. - 08/28/2014 10:06 PM CDT ED Disposition Summary ED Disposition Summary Entered On: 08/28/2014 22:06 CDT Performed On: 08/28/2014 22:06 CDT by KATIE ELKINS RN ED Disposition Summary Accompanied By : An Transportation : Private vehicle Printed Discharge Instructions Given to Patient : Yes Patient Status at Discharge from ED : Unchanged KATIE ELKINS RN - 08/28/2014 22:06 CDT Source: [email or web address] Document Id: [id number] CDT!6 Katie Elkins R.N. - 08/28/2014 10:06 PM CDT ED Pain Assessment ED Pain Assessment Entered On: 08/28/2014 22:06 CDT Performed On: 08/28/2014 22:06 CDT by KATIE ELKINS RN Pain Assessment Pain Symptoms : No KATIE ELKINS RN - 08/28/2014 22:06 CDT Source: [email or web address] Document Id: [id number] CDT!3 Darnell Hale Jr., M.D. - 08/28/2014 10:04 PM CDT Shortness of breath Patient: NOVA PEDERSON Age: 68 years Sex: Female : 1945 Author: DARNELL HALE MD Attachments: None Associated Diagnosis: Obesity Hypoventilation Syndrome Body Mass Index (BMI) 30- 40; Anxiety NOS Basic Information Additional information: Chief Complaint from Nursing Triage Note : Chief Complaint Description 08/28/2014 21:34 CDT Chief Complaint Description see triage 08/28/2014 21:32 CDT Chief Complaint Description Pt presents to ER with chronic SOB but today and humidty harder to take a deep breath. . History of Present Illness The patient presents with difficulty breathing. The onset was just prior to arrival and chronic. Thecourse/duration of symptoms is worsening. Degree at onset moderate. Degree at present moderate. There are Exacerbating factorss including exertion and lying flat. There are Relieving factorss includingrest and sitting upright. Risk factors consist of smoking and Obesity . Prior episodes: chronic. Therapy today: none. Pt with long-standing h/o SOB for years, s/p tobaccouse up to three ppd but quit 16 years ago, presents with worsening of SOB. Notes she has long had trouble breathing with any exertion or lying flat, but tonight felt shorter of breath due to humidity. [place] she was going to , friend brought to ED. Of note, pt morbidly obese, was on list for gastric bypass but got scared and didn't go through with it. . Review of Systems Constitutional symptoms: Negative except as documented in HPI. Skin symptoms: Negative except as documented in HPI. Eye symptoms: Negative except as documented in HPI. ENMT symptoms: Negative except as documented in HPI. Respiratory symptoms: Shortness of breath and orthopnea. Cardiovascular symptoms: Negative except as documented in HPI. Gastrointestinal symptoms: Nausea. Genitourinary symptoms: Negative except as documented in HPI. Musculoskeletal symptoms: Negative except as documented in HPI. Neurologic symptoms: Negative except as documented in HPI. Psychiatric symptoms: Anxiety. Endocrine symptoms: Negative except as documented in HPI. Hematologic/Lymphatic symptoms: Negative except as documented in HPI. Allergy/immunologic symptoms: Negative except as documented in HPI. Additional review of systems information: All other systems reviewed and otherwise negative. Health Status Allergies: Allergic Reactions (Selected) NKA. Past Medical/ Family/ Social History Medical history: No active or resolved past medical history items have been selected or recorded.. Surgical history: No active procedure history items have been selected or recorded.. Family history: No family history items have been selected or recorded.. Physical Examination Vital Signs: Vital Signs 08/28/2014 21:32 CDT Temperature Core 36.3 DegC LOW Peripheral Pulse Rate 78 /min Respiratory Rate 22 /min HI SpO2 99 % Systolic Blood Pressure 201 mmHg >HHI Diastolic Blood Pressure 80 mmHg Mean Arterial Pressure 120 mmHg , Measurements 08/28/2014 21:32 CDT Dosing Weight 145.00 kg Actual Weight 145 kg , SpO2 08/28/2014 21:32 CDT SpO2 99 % . General: Alert and mild distress. Skin: Warm and dry. Head: Normocephalic and atraumatic. Neck: Supple, trachea midline and no tenderness. Eye: Extraocular movements are intact and normal conjunctiva. Cardiovascular: Regular rate and rhythm, No murmur and Normal peripheral perfusion. Respiratory: Lungs are clear to auscultation, respirations are non-labored, breath sounds are equal,Symmetrical chest wall expansion and Clubbing of nails: None, Pitting edema b/l LE. . Chest wall: No tenderness and No deformity. Musculoskeletal: Normal ROM. normal strength. no tenderness. Gastrointestinal: Soft, Nontender and Morbidly obese. . Neurological: Alert and oriented to person, place, time, and situation, No focal neurological deficit observed and CN II-XII intact. Psychiatric: Cooperative and appropriate mood & affect. Medical Decision Making Differential Diagnosis:Asthma, pulmonary edema, anxiety. Impression and Plan Diagnosis Obesity Hypoventilation Syndrome Body Mass Index (BMI) 30-40 (Discharge, Emergency medicine, Medical) Anxiety NOS (Discharge, Emergency medicine, Medical) Plan Condition: Unchanged. Disposition: Medically cleared, Discharged: time 08/28/2014 22:09:00. Prescriptions: Prescription [facility]: Ativan 0.5 mg oral tablet (Prescribe): 0.5 mg, 1 tab(s), PO, 3xDay, PRN: Anxiety, 10 tab(s), 0 Refill(s). Patient was given the following educational materials: ANXIETY REACTION, Deciding on Bariatric Surgery. Follow up with: Primary Care Physician, In: 2 day(s). Counseled: Patient. Notes: Discussed with patient that her problems are likely d/t a combination of obesity and anxiety tonight. Lungs sound clear, and her sats stayed stable on and off of oxygen above 97. Pt agrees to see PCP on Saturday and reassess for bariatric surgery. In mean time prescribed Ativan for anxiety. F/u for worsening symptoms. . Electronically Signed By: DARNELL AHLE MD On: 08/28/2014 10:17 PM Source: [facility] POWERCHART Document Id: [id number]} Katie Elkins R.N. 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 ; Life Cycle Date: 05/13/2014 ; Life Cycle Status: Active ; Responsible Provider: ANGELA ZULETA RN; Vocabulary: ICD-9-CM Hypertension (HTN) NOS (ICD-9-CM :401.9 ) Name of Problem: Hypertension (HTN) NOS ; Recorder: NELLY SHAH MD; Confirmation: Confirmed ; Classification: Medical ; Code: 401.9 ; Contributor System: PAAYChart ; Last Updated: 05/26/2014 9:23 CDT ; Life Cycle Date: 05/26/2014 ; Life Cycle Status: Active ; Vocabulary: ICD-9-CM Rosacea NOS (ICD-9-CM :695.3 ) Name of Problem: Rosacea NOS ; Recorder: NELLY SHAH MD; Confirmation: Confirmed ; Classification: Medical ; Code: 695.3 ; Contributor System: [employer] ; Last Updated: 05/27/2014 12:05 CDT ; Life Cycle Date: 05/27/2014 ; Life Cycle Status: Active ; Vocabulary: ICD-9-CM Diagnoses(Active) Shortness of breath Date: 08/28/2014 ; Diagnosis Type: Reason For Visit ; Confirmation: Complaint of; Clinical Dx: Shortness of breath ; Classification: Medical ; Clinical Service: Non-Specified ; Code: PNED ; Probability: 0 ; Diagnosis Code: [id number] Triage Chief Complaint Description : see triage Mode of Arrival ED : Private vehicle, Ambulatory Track : Medical Languages : Canadian Treatments Prior to Arrival : None Is Patient Female and 13-50 no hysterectomy : No KATIE ELKINS RN - 08/28/2014 21:34 CDT Pain Assessment Pain Symptoms : No KATIE ELKINS RN - 08/28/2014 21:34 CDT Respiratory Airway : Patent Respirations : Unlabored Respiratory Pattern : Regular Oxygen Start Time : 08/28/2014 21:34 CDT Oxygen Therapy : Nasal cannula Oxygen Flow Rate : 2 L/min Respiratory Detailed Assessment : Yes KATIE ELKINS RN - 08/28/2014 21:34 CDT Resp Detailed Respiratory Patient Stated Symptoms : Shortness of breath Distress : Mild Cough : Weak Sputum Color : Clear KATIE ELKINS RN - 08/28/2014 21:34 CDT Cardiovascular Heart Rhythm : Regular Skin Color : Normal for ethnicity Skin Description : Dry Skin Temperature : Warm KATIE ELKINS RN - 08/28/2014 21:34 CDT Neurological Last Well Time Known : Not applicable Level of Consciousness : Alert Orientation : Oriented x 3 Characteristics of Speech : Appropriate for age KATIE ELKINS RN - 08/28/2014 21:34 CDT ED Psychosocial Affect/Behavior : Calm Domestic Abuse Concerns : None Behavioral Health Screen/Safety Assmt : No KATIE ELKINS RN - 08/28/2014 21:34 CDT Gastrointestinal Nutrition ED : [place] KATIE ELKINS RN - 08/28/2014 21:34 CDT Musculoskeletal Fall Prevention Education Provided : NA KATIE ELKINS RN - 08/28/2014 21:34 CDT Social Habits Tobacco Use/Currently Using : No Smoking Status : Former smoker AKTIE ELKINS RN - 08/28/2014 21:34 CDT Alcohol Use Grid Alcohol Use : No KATIE ELKINS RN - 08/28/2014 21:34 CDT Recreational Drug Use Grid Drug Use : None KATIE ELKINS RN - 08/28/2014 21:34 CDT Source: [facility] CatchoomCHART Document Id: [id number] CDT!50 Katie Elkins R.N. 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 ; Life Cycle Date: 05/13/2014 ; Life Cycle Status: Active ; Responsible Provider: ANGELA ZULETA RN; Vocabulary: ICD-9-CM Hypertension (HTN) NOS (ICD-9-CM :401.9 ) Name of Problem: Hypertension (HTN) NOS ; Recorder: NELLY SHAH MD; Confirmation: Confirmed ; Classification: Medical ; Code: 401.9 ; Contributor System: PAAYChart ; Last Updated: 05/26/2014 9:23 CDT ; Life Cycle Date: 05/26/2014 ; Life Cycle Status: Active ; Vocabulary: ICD-9-CM Rosacea NOS (ICD-9-CM :695.3 ) Name of Problem: Rosacea NOS ; Recorder: NELLY SHAH MD; Confirmation: Confirmed ; Classification: Medical ; Code: 695.3 ; Contributor System: [employer] ; Last Updated: 05/27/2014 12:05 CDT ; Life Cycle Date: 05/27/2014 ; Life Cycle Status: Active ; Vocabulary: ICD-9-CM Diagnoses(Active) Shortness of breath Date: 08/28/2014 ; Diagnosis Type: Reason For Visit ; Confirmation: Complaint of; Clinical Dx: Shortness of breath ; Classification: Medical ; Clinical Service: Non-Specified ; Code: PNED ; Probability: 0 ; Diagnosis Code: [id number] Triage Chief Complaint Description : Pt presents to ER with chronic SOB but today and humidty harder to take a deep breath. Information Given By : Patient Accompanied By : Sibling Mode of Arrival ED : Private vehicle, Ambulatory Track : Medical Languages : Canadian Vital Signs Assessed : Yes Treatments Prior to Arrival : None Is Patient Female and 13-50 no hysterectomy : No KATIE ELKINS RN - 08/28/2014 21:32 CDT Vital Signs Temperature Core : 36.3 DegC(Converted to: 97.3 DegF) (LOW) Peripheral Pulse Rate : 78 /min Respiratory Rate : 22 /min (HI) Systolic Blood Pressure : 201 mmHg (>HHI) Diastolic Blood Pressure : 80 mmHg NIBP Mean : 120 mmHg SpO2 : 99 % Oxygen Flow Rate : 2 L/min Oxygen Therapy : Nasal cannula Actual Weight : 145 kg Actual Weight Conversion to Pounds : 319 lb KATIE ELKINS RN - 08/28/2014 21:32 CDT Pain Assessment Pain Symptoms : No KATIE ELKINS RN - 08/28/2014 21:32 CDT Comfort Measures Comfort Measures Grid Rest : Yes KATIE ELKINS RN - 08/28/2014 21:32 CDT ED Physician Notification Time ED Physician Notification Time : 08/28/2014 21:33 CDT KATIE ELKINS RN - 08/28/2014 21:32 CDT JOHANN JOHANN Level 1 : No JOHANN Level 2 : No JOHANN Level 3 : One KATIE ELKINS RN - 08/28/2014 21:32 CDT DCP GENERIC CODE Tracking Acuity : 3 -Urgent Tracking Group : [facility] ED KATIE ELKINS RN - 08/28/2014 21:32 CDT Allergy (As Of: 08/28/2014 21:34:02 CDT) Allergies (Active) NKA Estimated Onset Date: Unspecified ; Created By: CARLEY ZIMMER; Reaction Status: Active ; Category: Drug ; Substance: NKA ; Type: Allergy ; Updated By: CARLEY ZIMMER; Reviewed Date: 08/28/2014 21:33CDT ID Screen Drug Resistant Organism : No KATIE ELKINS RN - 08/28/2014 21:32 CDT Immunizations Immunizations Current : Yes KATIE ELKINS RN - 08/28/2014 21:32 CDT Source: [email or web address] Document Id: [id number] CDT!41 documented in this encounter Miscellaneous Notes Miscellaneous - Jered Vilchis R.N. - 08/29/2014 7:18 AM CDT Communication Note Communication Note Entered On: 08/29/2014 7:19 CDT Performed On: 08/29/2014 7:18 CDT by JERED VILCHIS RN Communication Subject of Note : Other: Patient notification RX Assessment Communication Note : Patient was notified that the [facility] Machine is now working if she needed to fill Ativan RX or come to get paper RX if she needed to fill it elsewhere. Response : Patient verbalized understanding. Contact #[phone] JERED VILCHIS RN - 08/29/2014 7:18 CDT Source: [email or web address] Document Id: [id number] CDT!5 Miscellaneous - Carolina Ferris R.N. - 08/28/2014 10:36 PM CDT Valuables/Belongings Valuables/Belongings Entered On: 08/28/2014 22:36 CDT Performed On: 08/28/2014 22:36 CDT by CAROLINA FERRIS RN Valuables/Belongings Belongings Sent Home With : All belongings sent home with patient Home Medication Disposition : None brought in with patient CAROLINA FERRIS RN - 08/28/2014 22:36 CDT Source: [facility] Scaleform Document Id: [id number] CDT!4 Miscellaneous - Conversion, Historical Provider Ser - 08/28/2014 10:30 PM CDT Coding Summary-Paper Based CODING DATE: 09/08/[address] [facility] STATUS: * Discharged to Home or Self Care PAYOR: Medicare ADMIT DX: 786.09 Other Dyspnea and Respiratory Abnormality REASON FOR VISIT DX: 786.09 Other Dyspnea and Respiratory Abnormality FINAL DX: PRINCIPAL: 306.1 Respiratory Malfunction Arising from Mental Factors SECONDARY: 278.01 Morbid Obesity V85.30 Body Mass Index 30.0-30.9, Adult PROCEDURES DOCTOR NAME DATE NOTE: The code number assigned matches the documented diagnosis and / or procedure in the patient's chart. However, the narrative phrase printed from the coding software may appear abbreviated, or result in slightly different terminology. Coded By: ESTRELLA MEDLEY Date Saved: 09/08/2014 09:49 am Source: [email or web address] Document Id: [id number] Miscellaneous - Katie Elkins R.N. - 08/28/2014 10:06 PM CDT Valuables/Belongings Valuables/Belongings Entered On: 08/28/2014 22:06 CDT Performed On: 08/28/2014 22:06 CDT by KATIE ELKINS RN Valuables/Belongingchepe Home Medication Disposition : None brought in with patient KATEI ELKINS RN - 08/28/2014 22:06 CDT Source: [facility] [employer]CHART Document Id: [id number] CDT!3 Maribel - Katie Elkins R.N. - 08/28/2014 9:24 PM CDT Facility Charge Ticket 2.0 11.0 DX Facility Charge Ticket 2.0 11.0 DX Entered On: 08/28/2014 22:07 CDT Performed On: 08/28/2014 21:24 CDT by KATIE ELKINS RN Facility Charge Ticket 2.0 11.0 DX ED Other Charges : Standard ED Encounter TVL Level Translated RTF : Shortness of breath, Shortness of breath TVL:5 TVL Level for Facility Charge Ticket : Level 5 Arrival Mode Calc : 1 Mode of Arrival ED : Private vehicle, Ambulatory Lynx Mode of Arrival Interpreted : Standard Lynx Process Management : None Lynx Order Management : None 30 Minutes Critical Care : No Nursing Notes RTF : Triage Forms ED Triage Assessment,08/28/14 21:32,KATIE ELKINS RN Nursing Notes ED Primary Assessment,08/28/14 21:34,KATIE ELKINS HYDRAULIC MINER BLASTING Pain Assessment,08/28/14 22:06,KATIE ELKINS RN Lynx Nursing Assessment : Triage and 1-2 nursing assessments Lynx Disposition : Discharge Lynx Total Points with Diagnosis Control : 11 Lynx Visit Level : 06012 Level 4 Treatments Prior to Arrival : None KATIE ELKINS RN - 08/28/2014 22:06 CDT Source: [facility] [employer]form Document Id: [id number] CDT!17 Maribel - Carolina Ferris R.N. - 08/28/2014 9:24 PM CDT Facility Charge Ticket 2.0 11.0 DX Facility Charge Ticket 2.0 11.0 DX Entered On: 08/28/2014 22:36 CDT Performed On: 08/28/2014 21:24 CDT by CAROLINA FERRIS RN Facility Charge Ticket 2.0 11.0 DX ED Other Charges : Standard ED Encounter TVL Level Translated RTF : Shortness of breath, Shortness of breath TVL:5 TVL Level for Facility Charge Ticket : Level 5 Arrival Mode Calc : 1 Mode of Arrival ED : Private vehicle, Ambulatory Lynx Mode of Arrival Interpreted : Standard Lynx Process Management : None Lynx Order Management : None 30 Minutes Critical Care : No Nursing Notes RTF : Triage Forms ED Triage Assessment,08/28/14 21:32,KATIE ELKINS RN Nursing Notes ED Primary Assessment,08/28/14 21:34,KATIE ELKINS RN ED Pain Assessment,08/28/14 22:06,KATIE ELKINS RN Lynx Nursing Assessment : Triage and 1-2 nursing assessments Lynx Disposition : Discharge Disposition RTF : discharge Lynx Total Points with Diagnosis Control : 11 Lynx Visit Level : 67660 Level 4 Treatments Prior to Arrival : None CAROLINA FERRIS RN - 08/28/2014 22:36 CDT Source: [facility] [employer] Document Id: [id number] CDT!18 documented in this encounter Plan of Treatment Not on filedocumented as of this encounter Visit Diagnoses Not on filedocumented in this encounter Additional Health Concerns Assessment Noted Time PHQ-9 Depression Total Score: 3 05/13/2013 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
--- OUTSIDE RECORDS SUMMARY | 2021-12-22 21:56 | XMS_ITS | Encounter Summary ---
:1945 Author Organization [facility] Address [address] [place] [id number] Care Team Providers Name Role Phone Unavailable Primary Care Provider Unavailable Encounter Details Date Type Department Care Team Description 05/10/2014 - Hospital Encounter [facility] ED Nabila Valdez V Sariah 05/11/2014 Vinicius Kinney [address] [place] [address] 5057 (Wo rk) Social History Tobacco Use Types Packs/Day Years Used Date Smoking Tobacco: Never Assessed Sex Assigned at Date Recorded Not on file documented as of this encounter Last Filed Vital Signs Vital Sign Reading Time Taken Comments Blood Pressure 184/73 05/10/2014 11:37 PM REPAIR ELECT[employer]IC [employer]OR ASSEMBLER Pulse 85 05/10/2014 11:22 PM REPAIR ELECTRIC MOTOR ASSEMBLER Temperature - - Respiratory Rate 18 05/10/2014 11:22 PM REPAIR [employer]LECT[employer]IC MOTOR ASSEMBLER Oxygen Saturation - - Inhaled Oxygen Concentration - - Weight - - Height - - Body Mass Index - - documented in this encounter Discharge Summaries Bernardino Bass, RSariahN. - 05/11/2014 1:53 AM CST ED Discharge Instructions [address] [address] Name: NOVA PEDERSON Date of : 1945 12:00 AM Visit Date: 05/10/2014 10:44 PM [facility] Number: [id number] Address: [address] [place] [phone] Primary Care Provider: PCP, JERICHO MATTHEWS IMPORTANT: [facility] in [place] would like to thank you for allowing us to assist you with your healthcare needs. The following includes patient education materials and informationregarding your injury/illness. Diagnosis: Epistaxis Follow-Up Instructions: With: Address: When: UNASSIGNED PCP Within As Needed Comments: With: Address: When: follow up as needed Within As Needed Comments: Your Upcoming Appointments: Date Time Location Provider 05/21/2014 12:30 [facility] Mariah SEGOVIA, Delano Stauffer Patient Education Materials: [id number] NOSEBLEED [Adult] Bleeding from the nose most [...] Shortness of breath or trouble breathing ?? [id number] [place] [address]. All rights reserved. This information is not intended as a substitute for professional medical care. Always follow your healthcare professional's instructions. ED Tests and Procedures: Order Status Basic Metabolic Panel Completed Discharge Prescriptions & Home Medications: Medication/Strength Dose Route Frequency Indications/Special Instructions/Comments/Notes lisinopril-hydrochlorothiazide (lisinopril-hydrochlorothiazide 20 mg-12.5 mg oral tablet) [...] arrange a ride home with a responsible democrat. MARY CARMEN Bell ANNA CATHERINE , or responsible democrat have received this information and my questionshave been answered. I have discussed any challenges I see with this plan with the nurse or physician. Patient Signature or Responsible Democrat/Relationship Date Time Provider Signature Date Time Medication [...] arrange a ride home with a responsible democrat. I, NOVA PEDERSON , or responsible democrat have received this information and my questionshave been answered. I have discussed any challenges I see with this plan with the nurse or physician. Patient Signature or Responsible Democrat/Relationship Date Time Provider Signature Date Time This document has images extracted. Please consider using [employer] for all your patient education needs. Source: [facility] POWERCHART Document Id: [id number] IR ELECTRIC MOTOR ASSEMBLER Bernardino Bass R.N. - 05/11/2014 1:52 AM CST ED Depart Summary [facility] Emergency Department Clinical Discharge Summary PERSON INFORMATION Name NOVA PEDERSON Age 68 Years 1945 12:00 AM Sex Female Language Danish PCP PCP, UNASSIGNED - [place] Marital Status Single N [id number] Visit Id Visit Reason Epistaxis; Bloody nose Specialty Enc Type Emergency Med Service Emergency Medicine Referred by Track Group [facility] ED Discharge 05/11/2014 12:05 AM Tracking Id [id number] Checkout 05/11/2014 12:05 AM Checkin 05/10/2014 10:44 PM Acuity 4 -Less Urgent Dispo Type * Discharged to Home or Self Care Arrival 05/10/2014 10:44 PM Reg Status Complete LOS 000 01:21 Address: [address] [place] [address] [phone] Comment: PROVIDER INFORMATION Provider Role Provider Contact Time BERNARDINO BASS ED Nurse 05/10/14 22:57 NABILA VALDEZ MD ED Provider 05/10/14 22:58 DIAGNOSIS Epistaxis Comment: PATIENT EDUCATION INFORMATION Instructions: EPISTAXIS (Adult) Follow up: With: Address: When: UNASSIGNED PCP Within As Needed Comments: With: Address: When: follow up as needed Within As Needed Comments: Source: Step[employer] Document Id: [id number] IR ELECTRIC MOTOR ASSEMBLER documented in this encounter Medications at Time of Discharge Medication Sig Dispensed Refills Start Date End Date naproxen sodium 220 mg Take 1 capsule by 0 2011 capsule mouth. HYDROcodone-acetaminophe Take 1-2 tablets by 0 09/14/2020 n (NORCO) 10-325 mg per mouth. tablet documented as of this encounter ED Notes Bernardino Bass R.N. - 05/10/2014 11:19 PM CST ED Pain Assessment ED Pain Assessment Entered On: 05/10/2014 23:19 REPAIR ELECT[employer]IC MOTOR ASSEMBLER Performed On: 05/10/2014 23:19 REPAIR ELECTRIC MOTOR ASSEMBLER by BERNARDINO BASS Pain Assessment Pain Symptoms : Yes BERNARDINO BASS - 05/10/2014 23:19 REPAIR ELECTRIC MOTOR ASSEMBLER Source: [employer] Document Id: [id number] REPAIR ELECTRIC MOTOR ASSEMBLER!3 IR ELECTRIC MOTOR ASSEMBLER Bernardino Bass R.N. - 05/10/2014 11:18 PM CST ED Disposition Summary ED Disposition Summary Entered On: 05/10/2014 23:19 REPAIR ELECTRIC MOTOR ASSEMBLER Performed On: 05/10/2014 23:18 REPAIR ELECTRIC MOTOR ASSEMBLER by BERNARDINO BASS ED Disposition Summary Accompanied By : Sibling Mode of Discharge : Ambulatory Transportation : Private vehicle Printed Discharge Instructions Given to Patient : Yes Patient Status at Discharge from ED : Improved BERNARDINO BASS - 05/10/2014 23:18 REPAIR ELECTRIC MOTOR ASSEMBLER Source: [employer]Out Document Id: [id number] REPAIR ELECTRIC MOTOR ASSEMBLER!7 IR ELECTRIC MOTOR ASSEMBLER Nabila Valdez Jr., M.D. - 05/10/2014 11:14 PM CST Epistaxis Document Contains Addenda Addendum by NABILA VALDEZ MD on 10 May 2014 23:51 REPAIR ELECTRIC MOTOR ASSEMBLER pt noted to be very hypertensive so bmp performed and lisinopril 20/hctz 12.5 started and pt advised to follow up in clinic later this week in 2-3 days. Electronically Signed By: NABILA VALDEZ MD On: 05/10/2014 11:19 PM Modified by and Electronically Signed by: NABILA VALDEZ MD On: 05/10/2014 11:51 PM Epistaxis Patient: NOVA PEDERSON Age: 68 years Sex: Female : 1945 Author: NABILA VALDEZ MD Attachments: None Basic Information Additional information: Chief Complaint from Nursing Triage Note : Chief Complaint Description 05/10/2014 23:06 REPAIR ELECT[employer]IC [employer]OR ASSEMBLER Chief Complaint Description see triage assessment 05/10/2014 22:57 REPAIR ELECT[employer]IC MOTOR ASSEMBLER Chief Complaint Description Patient comes to the ED with complaints of a nosebleed . History of Present Illness The patient presents with Pt with left nare bleeding tonight. No history of similar problems. Does not take any blood thinners, no hx of problems with bleeding. Review of Systems Constitutional symptoms: Negative except as documented in HPI. Skin symptoms: Negative except as documented in HPI. Eye symptoms: Negative except as documented in HPI. ENMT symptoms: Negative except as documented in HPI. Respiratory symptoms: Negative except as documented in HPI. Cardiovascular symptoms: Negative except as documented in HPI. Gastrointestinal symptoms: Negative except as documented in HPI. Genitourinary symptoms: Negative except as documented in HPI. Musculoskeletal symptoms: Negative except as documented in HPI. Neurologic symptoms: Negative except as documented in HPI. Psychiatric symptoms: Negative except as documented in HPI. Endocrine symptoms: Negative except as documented in HPI. Hematologic/Lymphatic symptoms: Negative except as documented in HPI. Allergy/immunologic symptoms: Negative except as documented in HPI. Additional review of systems information: All other systems reviewed and otherwise negative. Health Status Allergies: Allergic Reactions (Selected) NKA. Past Medical/ Family/ Social History Medical history: Negative. Surgical history: Negative. Family history: No family history items have been selected or recorded., no hx of bleeding. Social history: Alcohol use: Denies, Tobacco use: Denies, Drug use: Denies. Physical Examination Vital Signs: (Date Range: 05/09/2014 0:00 REPAIR ELECTRIC MOTOR ASSEMBLER - 05/10/2014 23:15 REPAIR ELECTRIC MOTOR ASSEMBLER). General: Alert and no acute distress. Skin: Warm and dry. Head: Normocephalic and atraumatic. Neck: Supple and trachea midline. Eye: Pupils are equal, round and reactive to light, extraocular movements are intact, normal conjunctiva and vision unchanged. Ears, nose, mouth and throat: Tympanic membranes clear, oral mucosa moist, no pharyngeal erythema orexudate, small area of bleeding now stopped in anterior left nare and reginald nares otherwise look fine.. Cardiovascular: Regular rate and rhythm, No murmur and No edema. Respiratory: Lungs are clear to auscultation and respirations are non-labored. Gastrointestinal: Soft, Nontender, Non distended, Normal bowel sounds and No organomegaly. Back: Nontender and Normal range of motion. Musculoskeletal: Normal ROM. normal strength. Neurological: Alert and oriented to person, place, time, and situation and No focal neurological deficit observed. Lymphatics: No lymphadenopathy. Impression and Plan Diagnosis Epistaxis - stopped as pt entered ED, treated with silver nitrate cautery - advised follow up as needed. Limit trauma to nose and use pressure if recurs. Follow up if persistent problem Electronically Signed By: NABILA VALDEZ MD On: 05/10/2014 11:19 PM Source: [facility] POWERCHART Document Id: [id number]} IR ELECTRIC MOTOR ASSEMBLER Bernardino Bass, R.N. - 05/10/2014 11:06 PM CST ED Primary Assessment Document Has Been Updated ED Primary Assessment Entered On: 05/10/2014 23:14 REPAIR ELECT[employer]IC MOTOR ASSEMBLER Performed On: 05/10/2014 23:06 REPAIR ELECTRIC MOTOR ASSEMBLER by BERNARDINO BASS Reason For Visit (As Of: 05/10/2014 23:14:14 REPAIR ELECTRIC MOTOR ASSEMBLER) Diagnoses(Active) Epistaxis Date: 05/10/2014 ; Diagnosis Type: Reason For Visit ; Confirmation: Complaint of ; Clinical Dx: Epistaxis ; Classification: Medical ; Clinical Service: Non-Specified ; Code: PNED ; Probability: 0 ; Diagnosis Code: [id number] Epistaxis Date: 05/10/2014 ; Diagnosis Type: Discharge ; Confirmation: Confirmed ; Clinical Dx: Epistaxis ; Classification: Medical ; Clinical Service: Non- Specified ; Code: ICD-9-CM ; Probability: 0 ;Diagnosis Code: 784.7 Triage Chief Complaint Description : see triage assessment Mode of Arrival ED : Private vehicle, Ambulatory Track : Medical Languages : Danish Treatments Prior to Arrival : None Is Patient Female and 13-50 no hysterectomy : No MADELYN BASS05/10/2014 23:06 REPAIR ELECT[employer]IC MOTOR ASSEMBLER Pain Assessment Pain Symptoms : Yes MADELYN BASS05/10/2014 23:06 REPAIR ELECT[employer]IC MOTOR ASSEMBLER ID Screen Travel Within Last 21 Days : No MADELYN BASS05/10/2014 23:06 REPAIR ELECTRIC MOTOR ASSEMBLER Respiratory Airway : Patent Respirations : Unlabored Respiratory Pattern : Regular GORAN 05/10/2014 23:06 REPAIR ELECTRIC MOTOR ASSEMBLER Cardiovascular Heart Rhythm : Regular Skin Color : Normal for ethnicity Skin Description : Dry Skin Temperature : Warm MADELYN BASS05/10/2014 23:06 REPAIR ELECTRIC MOTOR ASSEMBLER Neurological Last Well Time Known : Not applicable Level of Consciousness : Alert Orientation : Oriented x 3 Characteristics of Speech : Appropriate for age MADELYN BASS05/10/2014 23:06 REPAIR ELECTRIC MOTOR ASSEMBLER ED Psychosocial Affect/Behavior : Calm Domestic Abuse Concerns : None MADELYN BASS05/10/2014 23:06 REPAIR ELECTRIC MOTOR ASSEMBLER Gastrointestinal Nutrition ED : Adequate MADELYN BASS05/10/2014 23:06 REPAIR ELECTRIC MOTOR ASSEMBLER Musculoskeletal Fall Prevention Education Provided : BERNARDINO METCALF 05/10/2014 23:06 REPAIR ELECT[employer]IC MOTOR ASSEMBLER Social Habits Tobacco Use/Currently Using : No Smoking Status : Former smoker BERNARDINO BASS 05/10/2014 23:06 REPAIR ELECT[employer]IC MOTOR ASSEMBLER Alcohol Use Grid Alcohol Use : No MADELYN BASS05/10/2014 23:06 REPAIR ELECTRIC MOTOR ASSEMBLER Recreational Drug Use Grid Drug Use : None BERNARDINO BASS 05/10/2014 23:06 REPAIR ELECTRIC MOTOR ASSEMBLER Source: [facility] POWERCHART Document Id: [id number] REPAIR ELECTRIC MOTOR ASSEMBLER!42 IR ELECTRIC MOTOR ASSEMBLER Bernardino Bass R.N. - 05/10/2014 10:57 PM CST ED Triage Assessment Document Has Been Updated ED Triage Assessment Entered On: 05/10/2014 23:03 REPAIR ELECT[employer]IC MOTOR ASSEMBLER Performed On: 05/10/2014 22:57 REPAIR ELECTRIC MOTOR ASSEMBLER by BERNARDINO BASS Reason For Visit (As Of: 05/10/2014 23:03:37 REPAIR ELECTRIC MOTOR ASSEMBLER) Diagnoses(Active) Epistaxis Date: 05/10/2014 ; Diagnosis Type: Reason For Visit ; Confirmation: Complaint of ; Clinical Dx: Epistaxis ; Classification: Medical ; Clinical Service: Non-Specified ; Code: PNED ; Probability: 0 ; Diagnosis Code: [id number] Triage Chief Complaint Description : Patient comes to the ED with complaints of a nosebleed Information Given By : Patient Accompanied By : Sibling Mode of Arrival ED : Private vehicle, Ambulatory Track : Medical Languages : Danish Treatments Prior to Arrival : None Is Patient Female and 13-50 no hysterectomy : No BERNARDINO BASS - 05/10/2014 22:57 REPAIR ELECT[employer]IC [employer]OR ASSEMBLER Pain Assessment Pain Symptoms : Yes BERNARDINO BASS - 05/10/2014 22:57 REPAIR ELECTRIC MOTOR ASSEMBLER Pain Scale Pain Scale Verbal 0-10 : Open BERNARDINO BASS - 05/10/2014 22:57 REPAIR ELECT[employer]IC MOTOR ASSEMBLER Pain Pain Assessment Grid Pain 1 Location : Other: headache Time Pattern : Acute Onset : Gradual Quality : Aching Pain Radiation : No BERNARDINO BASS - 05/10/2014 22:57 REPAIR ELECT[employer]IC MOTOR ASSEMBLER ED Physician Notification Time ED Physician Notification Time : 05/10/2014 23:00 REPAIR ELECT[employer]IC MOTOR ASSEMBLER BERNARDINO BASS - 05/10/2014 22:57 REPAIR ELECTRIC MOTOR ASSEMBLER JOHANN DCP GENERIC CODE Tracking Acuity : 4 -Less Urgent Tracking Group : [facility] ED BERNARDINO BASS - 05/10/2014 22:57 REPAIR ELECTRIC MOTOR ASSEMBLER Allergy (As Of: 05/10/2014 23:03:37 REPAIR ELECTRIC MOTOR ASSEMBLER) Allergies (Active) NKA Estimated Onset Date: Unspecified ; Created By: BERNARDINO BASS; Reaction Status: Active ; Category: Drug ; Substance: NKA ; Type: Allergy ; Updated By: BERNARDINO BASS; Reviewed Date: 05/10/2014 22:59CST ID Screen Travel Within Last 21 Days : BERNARDINO Hdz - 05/10/2014 22:57 REPAIR ELECT[employer]IC MOTOR ASSEMBLER Immunizations Immunizations Current : Unknown Last Tetanus : Unknown Pneumovac : None Influenza : None BERNARDINO BASS - 05/10/2014 22:57 REPAIR ELECTRIC MOTOR ASSEMBLER Source: [employer] Document Id: [id number] REPAIR ELECTRIC MOTOR ASSEMBLER!35 IR ELECTRIC MOTOR ASSEMBLER documented in this encounter Miscellaneous Notes Miscellaneous - Conversion, Historical Provider Ser - 05/11/2014 12:05 AM REPAIR ELECTRIC MOTOR ASSEMBLER Coding Summary-Paper Based CODING DATE: 05/17/2014 FINAL [place] [facility] STATUS: * Discharged to Home or Self Care PAYOR: Medicare ADMIT DX: 784.7 Epistaxis REASON FOR VISIT DX: 784.7 Epistaxis FINAL DX: PRINCIPAL: 784.7 Epistaxis SECONDARY: 401.9 Unspecified Essential Hypertension PROCEDURES DOCTOR NAME DATE 34295 Control nasal hemorrhage, NABILA VALDEZ V005/10/2014 anterior, simple (limited cautery and/or packing) any method.. LT LEFT SIDE (USED TO IDENTIFY PROCEDURES PERFORMED ON THE LEFT SIDE OF THE BODY) NOTE: The code number assigned matches the documented diagnosis and / or procedure in the patient's chart. However, the narrative phrase printed from the coding software may appear abbreviated, or result in slightly different terminology. Coded By: ESTRELLA MEDLEY Date Saved: 05/17/2014 07:55 am Source: [employer] Document Id: [id number] Miscellaneous - Bernardino Bass RSariahN. - 05/10/2014 11:19 PM CST Valuables/Belongings Valuables/Belongings Entered On: 05/10/2014 23:19 REPAIR ELECT[employer]IC MOTOR ASSEMBLER Performed On: 05/10/2014 23:19 REPAIR ELECTRIC MOTOR ASSEMBLER by BERNARDINO BASS Valuables/Belongingchepe Home Medication Disposition : None brought in with patient BERNARDINO BASS - 05/10/2014 23:19 REPAIR ELECTRIC MOTOR ASSEMBLER Source: [facility] [employer] Document Id: [id number] REPAIR ELECTRIC MOTOR ASSEMBLER!3 IR ELECTRIC MOTOR ASSEMBLER Miscellaneous - Bernardino Bass R.N. - 05/10/2014 11:19 PM CST Facility Charge Ticket 2.0 11.0 DX Facility Charge Ticket 2.0 11.0 DX Entered On: 05/10/2014 23:19 REPAIR ELECTRIC MOTOR ASSEMBLER Performed On: 05/10/2014 23:19 REPAIR ELECTRIC MOTOR ASSEMBLER by BERNARDINO BASS Facility Charge Ticket 2.0 11.0 DX ED Other Charges : Standard ED Encounter TVL Level Translated RTF : Epistaxis TVL:3 TVL Level for Facility Charge Ticket : Level 3 Arrival Mode Calc : 1 Mode of Arrival ED : Private vehicle, Ambulatory Lynx Mode of Arrival Interpreted : Standard Lynx Process Management : None Lynx Order Management : None 30 Minutes Critical Care : No Nursing Notes RTF : Triage Forms ED Triage Assessment,05/10/14 22:57,BERNARDINO BASS Nursing Notes ED Primary Assessment,05/10/14 23:06,BERNARDINO BASS ED Pain Assessment,05/10/14 23:19,BERNARDINO BASS Lynx Nursing Assessment : Triage and 1-2 nursing assessments Lynx Disposition : Discharge Lynx Total Points with Diagnosis Control : 5 Lynx Visit Level : 28894 Level 3 Treatments Prior to Arrival : None BERNARDINO BASS - 05/10/2014 23:19 REPAIR ELECTRIC MOTOR ASSEMBLER Source: [facility] POWERCHART Document Id: [id number] REPAIR ELECTRIC MOTOR ASSEMBLER!17 IR ELECTRIC MOTOR ASSEMBLER documented in this encounter Plan of Treatment Not on filedocumented as of this encounter Procedures Procedure Name Priority Date/Time Associated Diagnosis Comme nts BASIC METABOLIC Routine 05/10/2014 11:55 AM Resul ts for this PANEL, S/P REPAIR ELECTRIC MOTOR ASSEMBLER procedure are i n the results section. documented in this encounter Results BMP (Basic Metabolic Panel) (05/10/2014 11:55 AM REPAIR ELECTRIC MOTOR ASSEMBLER) P athologist Signature Anion Gap 12 10 - 20 POWERCHART MMOLL BUN (Blood Urea 17 7 - 18 POWERCHART Nitrogen), S MGDL Chloride, S 105 98 - 107 POWERCHART MMOLL CO2 Total 26.4 23.0 - POWERCHART 29.0 MMOLL Creatinine 0.78 0.60 - POWERCHART 1.30 MGDL Glucose 126 70 - 139 POWERCHART MGDL Calcium, Total, 9.4 8.8 - 10.2 POWERCHART S MGDL Sodium, S 139.4 135.0 - POWERCHART 145.0 MML Potassium, S 3.7 3.6 - 4.8 POWERCHART MMOLL HXeGFR (MDRD) >60 >=60 POWERCHART [id number] eGFR >60 >=60 POWERCHART Black/ [id number] Burkinan Specimen (Source) Anatomical Collection Method Collection Time Re ceived Time Location / / Volume Laterality Blood 05/10/2014 11:55 AM REPAIR ELECTRIC MOTOR ASSEMBLER Nabila Valdez Jr., M.D. LAB BLOOD ADD-ON Performing Organization Address City/State/ZIP Code Phon e Number POWERCHART documented in this encounter Visit Diagnoses Not on filedocumented in this encounter Additional Health Concerns Assessment Noted Time PHQ-9 Depression Total Score: 3 05/13/2013 2:06 PM REPAIR ELECTRIC MOTOR ASSEMBLER documented as of this encounter
--- OUTSIDE RECORDS SUMMARY | 2021-12-22 21:56 | XMS_ITS | Encounter Summary ---
:1945 Author Organization [facility] Address [address] [place] [id number] Care Team Providers Name Role Phone Unavailable Primary Care Provider Unavailable Encounter Details Date Type Department Care Team Description 02/24/2015 Hospital Encounter HX [facility] Best Garcia III, M.D. [address] [place] [address] [phone] (Wo rk) Social History Tobacco Use Types Packs/Day Years Used Date Smoking Tobacco: Never Assessed Sex Assigned at Date Recorded Not on file documented as of this encounter Last Filed Vital Signs Vital Sign Reading Time Taken Comments Blood Pressure 166/94 02/24/2015 3:50 PM CRUSHER SUPERVISOR Pulse 85 02/24/2015 3:50 PM CRUSHER SUPERVISOR Temperature - - Respiratory Rate 20 02/24/2015 3:50 PM CRUSHER SUPERVISOR Oxygen Saturation - - Inhaled Oxygen Concentration - - Weight 138 kg (304 lb 3.8 oz) 02/24/2015 12:31 PM CRUSHER SUPERVISOR Height - - Body Mass Index 55.35 10/26/2014 2:55 PM CDT documented in this encounter Discharge Summaries Jered Vilchis R.N. - 02/24/2015 4:13 PM CST ED Discharge Instructions [address] [address] Name: NOVA PEDERSON Date of : 1945 12:00 AM Visit Date: 02/24/2015 12:16 PM [facility] Number: [id number] Address: [address] [place] [phone] Primary Care Provider: PCPJERICHO IMPORTANT: [facility] in [place] would like to thank you for allowing us to assist you with your healthcare needs. The following includes patient education materials and informationregarding your injury/illness. Diagnosis: 1:Stone Kidney; 2:Body Mass Index (BMI) 70 And Over Adult; 3:Morbid Obesity Body Mass Index (BMI) >40 Adult; 4:Candidiasis Intertrigo Follow-Up Instructions: With: Address: When: Follow up with primary care provider Within 1 - 2 weeks Comments: kidney stone Your Upcoming Appointments: Date Time Location Provider No Appointments found Patient Education Materials: Kidney Stone (W/ Colic) The sharp cramping pain and nausea/vomiting that you have is due to a small stone which has formed in the kidney and is now passing down a narrow tube (ureter) on its way to your bladder. Once it reaches your bladder, the pain will stop. The stone may pass in your urine stream in one piece. [The size may be 1/16 to 1/4 (1-6mm)]. Or, the stone may also break up into rachelle fragments which you may noteven notice. Once you have had a kidney stone, you are at risk for developing another one in the future. Home Care: ?? Drink plenty of fluids (at least 8 to 10 glasses of water a day). ?? Most stones will pass on their own, but may take from a few hours to a few days. Sometimes the stone is too large to pass by itself and special methods will have to be used to remove the stone. ?? Each time you urinate, do so in a jar. Pour the urine from the jar through the strainer and into the toilet. Continue doing this until 24 hours after your pain stops. By then, if there was a kidney stone, it should pass from your bladder. Some stones dissolve into sand-like particles and pass rightthrough the strainer. In that case, you wont ever see a stone. ?? Save any stone that you find in the strainer and bring it to your doctor for analysis. It may be possible to prevent certain types of stones from forming. Therefore, it is important to know what kind of stone you have. ?? Try to stay as active as possible since this will help the stone pass. Do not stay in bed unless your pain prevents you from getting up. You may notice a red, pink or brown color to your urine. Thisis normal while passing a kidney stone. Follow Up with your doctor or return to this facility if the pain lasts more than 48 hours. Get Prompt Medical Attention if any of the following occur: ?? Pain that is not controlled by the medicine given ?? Repeated vomiting or unable to keep down fluids ?? Weakness, dizziness or fainting ?? Fever of 100.4?F (38?C) or higher, or as directed by your healthcare provider ?? Passage of solid red or brown urine (can't see through it) or urine with lots of blood clots ?? Unable to pass urine for 8 hours and increasing bladder pressure ?? [id number] [place] [address]. All rights reserved. This information is not intended as a substitute for professional medical care. Always follow your healthcare professional's instructions. Calderon Skin Infection (Adult) Your skin rash is caused by an infection with calderon (a form of yeast). It often appears in folds of the skin where moisture builds up. This commonly occurs under the breast or in the groin creases. It is more likely to appear in persons who are overweight or have decreased immune function (persons with diabetes, cancer, or HIV). The rash will clear in 7 to14 days using the cream prescribed. Home Care: ?? Keep the skin clean by washing the area twice a day. ?? Use the prescribed powder as directed until the rash has fully cleared. Once the rash has healed,keep the skin dry to prevent another infection. Drying powders may help. ?? If you are overweight, talk to your doctor about a plan to lose excess weight. ?? Certain-dri (an antiperparant) can be applied once daily to the affected area. Ask for it behind the counter at the pharmacy. Follow Up with your doctor as advised, if the rash is not cleared after 2 weeks. Get Prompt Medical Attention if any of the following occur: ?? Increasing pain and spreading area of redness ?? Fluid drainage or yellow crusting at the site of rash ?? Fever of 100.4??F (38??C) or higher, or as directed by your healthcare provider ?? White spots inside the mouth ?? Painful swallowing ?? [phone] Gricelda Mckinley, [address] [place] [address], [place] [address]. All rights reserved. This information is not [...] if you dont have one. Go to [email or web address] and click on Create Your Account. Then, follow the directions to complete the online form. Youll be asked for your [facility] number which you can find at the top of this document. ED Tests and Procedures: Order Status CBC (includes Auto Differential) Completed Comprehensive Metabolic Panel Completed CT Stone Protocol Completed Automated Diff-5 Part Completed Urinalysis with Microscopic Completed Discharge Prescriptions & Home Medications: Medication/Strength Dose Route Frequency Indications/Special Instructions/Comments/Notes tamsulosin (tamsulosin 0.4 mg oral capsule) 0.4 mg Oral once a day 30 minutes after the same meal Kidney stone nystatin topical (nystatin 100,000 units/g topical powder) 1 óscar Topical three times a day to affected area naproxen (Aleve) 2 tab(s) Oral as needed as needed for Pain Misc. Supply (Misc. Supply) See Instructions OTC YEAST INF MEDICATION *fluticasone nasal (Flonase) 1 spray(s) Nasal once a day as needed for Nasal congestion *fluocinonide topical (Lidex 0.05% topical cream) 1 óscar Topical two times a day *sodium chloride nasal ([place]boro Saline 0.65% nasal solution) 2 drop(s) Nasal every 2 hours *sodium chloride nasal ([place] Saline 0.65% nasal gel) 1 spray(s) Nasal [...] ride home with a responsible democrat. I, MARY CARMEN NOVAChidi MEYERSE , or responsible democrat have received this information and my questionshave been answered. I have discussed any challenges I see with this plan with the nurse or physician. Patient Signature or Responsible Constitution Party/Relationship Date Time Provider Signature Date Time This document has images extracted. Please consider using [employer] for all your patient education needs. Source: [facility] POWERCHART Document Id: [id number] HER SUPERVISOR Jered Vilchis R.N. - 02/24/2015 4:13 PM CST ED Depart Summary [facility] Emergency Department Clinical Discharge Summary PERSON INFORMATION Name NOVA PEDERSON Age 69 Years 1945 12:00 AM Sex Female Language Tristanian PCP PCP, UNASSIGNED - CA Marital Status Single Visit Id Visit Reason Flank pain; severe middle back pain Specialty Enc Type Emergency Med Service Emergency Medicine Referred by Track Group [facility] ED Discharge 02/24/2015 4:00 PM Tracking Id [id number] Checkout 02/24/2015 4:00 PM Checkin 02/24/2015 12:16 PM Acuity 3 -Urgent Dispo Type * Discharged to Home or Self Care Arrival 02/24/2015 12:16 PM Reg Status Complete LOS 000 03:44 Address: [address] [place] [phone] Comment: PROVIDER INFORMATION Provider Role Provider Contact Time JERED VILCHIS RN ED Nurse 02/24/15 12:23 BEST PATRICIA III, MD ED Provider 02/24/15 12:30 DIAGNOSIS 1:Stone Kidney; 2:Body Mass Index (BMI) 70 And Over Adult; 3:Morbid Obesity Body Mass Index (BMI) >40 Adult; 4:Candidiasis Intertrigo Comment: PATIENT EDUCATION INFORMATION Instructions: KIDNEY STONE w/ Colic; CALDERON SKIN INFECTION Follow up: With: Address: When: Follow up with primary care provider Within 1 - 2 weeks Comments: kidney stone Source: [facility] Document Id: [id number] HER SUPERVISOR documented in this encounter Medications at Time of Discharge Medication Sig Dispensed Refills Start Date End Date naproxen sodium 220 mg Take 1 capsule by 0 2011 capsule mouth. HYDROcodone-acetaminophe Take 1-2 tablets by 0 09/14/2020 n (NORCO) 10-325 mg per mouth. tablet documented as of this encounter ED Notes Jered Vilchis R.N. - 02/24/2015 3:51 PM CST ED Disposition Summary ED Disposition Summary Entered On: 02/24/2015 15:51 CRUSHER SUPERVISOR Performed On: 02/24/2015 15:51 CRUSHER SUPERVISOR by JERED VILCHIS RN ED Disposition Summary Accompanied By : Sibling Mode of Discharge : Ambulatory Transportation : Private vehicle Discharge From ED With : Home Med List Printed Discharge Instructions Given to Patient : Yes JERED VILCHIS RN - 02/24/2015 15:51 CRUSHER SUPERVISOR [facility] Document Id: [id number] CRUSHER SUPERVISOR!7 HER SUPERVISOR Jered Vilchis R.N. - 02/24/2015 3:51 PM CST ED Pain Assessment ED Pain Assessment Entered On: 02/24/2015 15:51 CRUSHER SUPERVISOR Performed On: 02/24/2015 15:51 CRUSHER SUPERVISOR by JERED VILCHIS RN Pain Assessment Pain Symptoms : Yes JERED VILCHIS RN - 02/24/2015 15:51 CRUSHER SUPERVISOR Pain Scale Pain Scale Verbal 0-10 : Open JERED VILCHIS RN - 02/24/2015 15:51 CRUSHER SUPERVISOR Pain Pain Assessment Grid Pain 1 Location : Flank Intensity : 8 JERED VILCHIS RN - 02/24/2015 15:51 CRUSHER SUPERVISOR Source: [facility] Document Id: [id number] CRUSHER SUPERVISOR!10 HER SUPERVISOR Best Patricia M.D. - 02/24/2015 1:01 PM CST Flank pain Document Contains Addenda Patient: NOVA PEDERSON Age: 69 years Sex: Female : 1945 Author: BEST PATRICIA III, MD Attachments: None Associated Diagnosis: Stone Kidney; Body Mass Index (BMI) 70 And Over Adult; Morbid Obesity Body Mass Index (BMI) >40 Adult; Candidiasis Intertrigo; Stone Kidney; Body Mass Index (BMI) 70 And Over Adult; Morbid Obesity Body Mass Index (BMI) >40 Adult; Candidiasis Intertrigo Basic Information Additional information: Chief Complaint from Nursing Triage Note : Chief Complaint Description 02/24/2015 12:31 CRUSHER SUPERVISOR Chief Complaint Description 69 yo female presents to the ED via private vehicleaccompanied with her sister with c/o left flank pain which started last night, pt. states she also has a yeast infection and she has been itching herself raw. . History of Present Illness The patient presents with flank pain. The onset was 1 days ago. The course/duration of symptoms is fluctuating in intensity. The character of symptoms is sharp. The degree at onset was moderate. The Location of pain at onset was left and flank. The degree at present is severe. The Location of pain at present is left and flank. Radiating pain: none. The exacerbating factor is coughing. The relieving factor is rest. Therapy today: over the counter medications including Aleve. Risk factors consist of hypertension. Associated symptoms: nausea. Review of Systems Constitutional symptoms: Chills. Skin symptoms: Negative except as documented in [...] Reactions (Selected) NKA. Medications: (Selected) Prescriptions Prescribed [place] Saline 0.65% nasal gel: 1 spray(s), Nasal, 4xDay, 14 gm [place] Saline 0.65% nasal solution: 2 drop(s), Nasal, q2hr, 1 each Lidex 0.05% topical cream: 1 óscar, Topical, 2xDay, 60 gm lisinopril-hydrochlorothiazide 20 mg-12.5 mg oral tablet: 1 tab(s), PO, Daily, 30 tab(s) nystatin 100,000 units/g topical powder: 1 óscar, Topical, 3xDay, to affected area, 60 gm, 0 Refill(s) Documented Medications Documented Aleve: 2 tab(s), PO, PRN, PRN: Pain Flonase: 1 spray(s), Nasal, Daily, PRN: Nasal congestion Misc. Supply: See Instructions, OTC YEAST INF MEDICATION. Past Medical/ Family/ Social History Medical history: No active or resolved past medical history items have been selected or recorded.. Surgical history: Negative. Family history: Mother History is negative. Father History is negative. . Social history: Alcohol use: Denies, Tobacco use: Denies, Drug use: Denies, Occupation: Retired. Problem list: All Problems Bleed Nose / 784.7 / Confirmed Hypertension (HTN) NOS / 401.9 / Confirmed Rosacea NOS / 695.3 / Confirmed Morbid Obesity Body Mass Index (BMI) >40 Adult / E66.01 / Confirmed. Physical Examination Vital Signs: Vital Signs 02/24/2015 12:39 CRUSHER SUPERVISOR Peripheral Pulse Rate 90 /min SpO2 95 % Systolic Blood Pressure 162 mmHg >HHI Diastolic Blood Pressure 84 mmHg Mean Arterial Pressure 110 mmHg BP Location Left upper 02/24/2015 12:31 CRUSHER SUPERVISOR Temperature Core 37.3 DegC Peripheral Pulse Rate 94 /min Respiratory Rate 24 /min HI SpO2 96 % Systolic Blood Pressure 165 mmHg >HHI Diastolic Blood Pressure 125 mmHg >HHI Mean Arterial Pressure 138 mmHg BP Location Left upper , Measurements 02/24/2015 12:31 CRUSHER SUPERVISOR Dosing Weight 138.00 kg Actual Weight 138 kg Weight Source Bed scale . General: Alert and mild distress. Skin: Warm, dry and pink. Neck: Supple, trachea midline, no tenderness and no JVD. Cardiovascular: Regular rate and rhythm, No murmur and Normal peripheral perfusion. Respiratory: Lungs are clear to auscultation, respirations are non-labored, breath sounds are equal and Symmetrical chest wall expansion. Gastrointestinal: MASSIVE OBESITY PRECLUDES EFFECTIVE ABDOMINAL EXAM, Tenderness: CVA tenderness left, Guarding: Negative, Rebound: Negative, Bowel sounds: Normal and Organomegaly: Negative. Back: Nontender, Normal range of motion, Normal alignment and no step-offs. Psychiatric: Cooperative, appropriate mood & affect, normal judgment and non-suicidal. Medical Decision Making Differential Diagnosis:Abdominal pain, renal stone, ureteral stone. OrdersLaunch Orders Laboratory: CBC (includes Auto Differential) (Order Processing): Stat, 02/24/2015 13:02 CRUSHER SUPERVISOR, Once, ed 2 Comprehensive Metabolic Panel (Order Processing): Stat, 02/24/2015 13:02 CRUSHER SUPERVISOR, Once, ed 2 Patient Care: ED Flank Pain (Order Processing) Radiology: CT Stone Protocol (Order Processing): 02/24/2015 13:02 CRUSHER SUPERVISOR, Left flank pain, Stat, Patient Bed, Once, 02/24/2015 13:02 CRUSHER SUPERVISOR, ED 2, [facility]. Results review:Lab results : Lab View 02/24/2015 13:13 CRUSHER SUPERVISOR Hgb 13.7 g/dL Hct 42.6 % WBC 10.5 x10(9)/L RBC 5.13 x10(12)/L HI MCV 83.0 fL RDW 14.9 % Platelet 285 x10(9)/L Neutro Absolute 7.76 10(9)/L HI Lymph Absolute 1.88 x10(9)/L [place] Absolute 0.60 x10(9)/L Eos Absolute 0.22 x10(9)/L Baso Absolute 0.04 x10(9)/L Sodium Lvl 137.5 mM/L Potassium Lvl 4.1 mmol/L Chloride 103 mmol/L CO2 27.5 mmol/L AGAP 7 mmol/L LOW Alkaline Phosphatase 118 U/L Glucose Lvl 156 mg/dL HI Creatinine 0.84 mg/dL EGFR (MDRD) >60 mL/min/1.73m2 EGFR (MDRD) >60 mL/min/1.73m2 BUN 20 mg/dL HI Calcium Lvl 9.4 mg/dL Protein Total 7.0 g/dL Albumin Lvl 4.0 g/dL AST 29 unit/L ALT 32 unit/L Bili Total 0.3 mg/dL 02/24/2015 12:44 CRUSHER SUPERVISOR UA Color Yellow UA Clarity Slightly Cloudy UA Spec Grav 1.015 UA pH 6.5 UA Protein Negative mg/dL UA Glucose Negative mg/dL UA Ketones Negative mg/dL UA Bili Negative UA Urobilinogen 1.0 mg/dL UA Blood Negative UA Nitrite Negative UA Leuk Est Trace UR WBC None Seen /HPF UR RBC None Seen /HPF UR Squamous Epi Cells Occ-3 /HPF UR Crystals Present UR Mucous Present . Radiology results:Computed tomography, 24-Feb-2015 13:32:00 Exam: CT ABDOMEN wo & PELVIS wo Indications: Left flank pain 24-Feb-2015 14:58 CA EXAM: CT scan of the Abdomen and Pelvis without IV contrast COMPARISON: None IMPRESSION/ FINDINGS: Nonobstructive calculus in the inferior pole of left kidney (image#[id number] ). No ureteric calculus. No hydronephrosis. No imaging findings to suggest diverticulitis. There is atherosclerotic calcification of the abdominal aorta and iliac arteries, without aneurysmal dilatation. There are degenerative changes in the spine. There is no sign of neoplastic bone disease. Diffuse hepatic steatosis. Shotty mesenteric and retroperitoneal lymph nodes. Abdomen and pelvis is otherwise unremarkable. Peggy Wang M.D. [phone] 24-Feb-2015 14:58 . Impression and Plan Diagnosis Stone Kidney (Discharge, Medical) Body Mass Index (BMI) 70 And Over Adult (Discharge, Medical) Morbid Obesity Body Mass Index (BMI) >40 Adult (Discharge, Medical) Candidiasis Intertrigo (Discharge, Medical) Plan Condition: Stable. Disposition: Medically cleared, Discharged: to home. Prescriptions: Prescription [facility]: tamsulosin 0.4 mg oral capsule (Prescribe): 0.4 mg, 1 cap(s), PO, Daily, 30 minutes after the same meal Kidney stone, 30 cap(s), 0 Refill(s) nystatin 100,000 units/g topical powder (Prescribe): 1 óscar, Topical, 3xDay, to affected area, 60 gm,0 Refill(s). Patient was given the following educational materials: CALDERON SKIN INFECTION, CALDERON SKIN INFECTION, KIDNEY STONE w/ Colic, KIDNEY STONE w/ Colic, CALDERON SKIN INFECTION. Follow up with: ; Follow up with primary care provider Within 1 - 2 weeks kidney stone. Counseled: Patient, Family, Discussed results and plan with patient in detail and they expressed understanding and agreement.. Orders: Launch Orders Patient Care: Discharge ED Patient (Order Processing): 02/24/2015 15:50 CRUSHER SUPERVISOR, Once. Addendum Portions of this chart were completed with speech recognition software.? Therefore, please be aware that it may contain recognition errors including nonsensical words, phrases, and missing words. Electronically Signed By: BEST PATRICIA III, MD On: 02/24/2015 06:20 PM Modified by and Electronically Signed by: BEST PATRICIA III, MD On: 02/24/2015 02:17 PM Source: [facility] Document Id: [id number] HER SUPERVISOR Jered Vilchis RSariahN. - 02/24/2015 12:39 PM CST ED Primary Assessment Document Has Been Updated ED Primary Assessment Entered On: 02/24/2015 12:44 CRUSHER SUPERVISOR Performed On: 02/24/2015 12:39 CRUSHER SUPERVISOR by JERED VILCHIS RN Reason For Visit (As Of: 02/24/2015 12:45:01 CRUSHER SUPERVISOR) Problems(Active) Bleed Nose (ICD-9-CM :784.7 ) Name of Problem: Bleed Nose ; Recorder: ANGELA ZULETA RN; Confirmation: Confirmed ; Classification: Nursing ; Code: 784.7 ; Contributor System: PowerChart ; Last Updated: 05/13/2014 6:25 CRUSHER SUPERVISOR ; Life Cycle Date: 05/13/2014 ; Life [...] Cycle Status: Active ; Vocabulary: ICD-9-CM Diagnoses(Active) Flank pain Date: 02/24/2015 ; Diagnosis Type: Reason For Visit ; Confirmation: Complaint of ; Clinical Dx: Flank pain ; Classification: Medical ; Clinical Service: Emergency medicine ; Code: PNED ; Probability: 0 ; Diagnosis Code: [id number] Triage Chief Complaint Description : See Triage Note Information Given By : Patient Accompanied By : Sibling Mode of Arrival ED : Private vehicle Track : Medical Languages : Tristanian Patient Informed of Triage Location : Emergency department Vital Signs Assessed : Yes GCS Assessed : Yes Treatments Prior to Arrival : Ibuprofen Is Patient Female and 13-50 no hysterectomy : No JERED VILCHIS RN - 02/24/2015 12:39 CRUSHER SUPERVISOR Vital Signs Peripheral Pulse Rate : 90 /min Systolic Blood Pressure : 162 mmHg (>HHI) Diastolic Blood Pressure : 84 mmHg NIBP Mean : 110 mmHg BP Location : Left upper extremity SpO2 : 95 % Oxygen Therapy : Room air JERED VILCHIS RN - 02/24/2015 12:39 CRUSHER SUPERVISOR [place] Coma Eye Opening Response Chanel : Spontaneously Best Verbal Response [place] : Oriented Best Motor Response [place] : Obeys simple commands Chanel Coma Score : 15 JERED VILCHIS RN - 02/24/2015 12:39 CRUSHER SUPERVISOR Pain Assessment Pain Symptoms : Yes JERED VILCHIS RN - 02/24/2015 12:39 CRUSHER SUPERVISOR ED Physician Notification Time ED Physician Notification Time : 02/24/2015 12:34 CRUSHER SUPERVISOR JERED VILCHIS RN - 02/24/2015 12:39 CRUSHER SUPERVISOR JOHANN JOHANN Level 1 : No JOHANN Level 2 : No JOHANN Level 3 : Many Vital Signs JOHANN : Danger zone (HR > 100, RR > 20, SaO2 < 92%) JERED VILCHIS RN - 02/24/2015 12:39 CRUSHER SUPERVISOR DCP GENERIC CODE Tracking Acuity : 3 -Urgent Tracking Group : [facility] ED JERED VILCHIS RN - 02/24/2015 12:39 CRUSHER SUPERVISOR Allergy (As Of: 02/24/2015 12:45:02 CRUSHER SUPERVISOR) Allergies (Active) NKA Estimated Onset Date: Unspecified ; Created By: CARLEY ZIMMER; Reaction Status: Active ; Category: Drug ; Substance: NKA ; Type: Allergy ; Updated By: CARLEY ZIMMER; Reviewed Date: 02/24/2015 12:35CST ID Screen Drug Resistant Organism : No JERED VILCHIS RN - 02/24/2015 12:39 CRUSHER SUPERVISOR Immunizations Immunizations Current : Yes JERED VILCHIS RN - 02/24/2015 12:39 CRUSHER SUPERVISOR Respiratory Airway : Patent Respirations : Unlabored Respiratory Pattern : Regular JERED VILCHIS RN - 02/24/2015 12:39 CRUSHER SUPERVISOR Cardiovascular Heart Rhythm : Regular Skin Color : Normal for ethnicity Skin Description : Dry Skin Temperature : Warm JERED VILCHIS RN - 02/24/2015 12:39 CRUSHER SUPERVISOR Neurological Last Well Time Known : Not applicable Level of Consciousness : Alert Orientation : Oriented x 3 Characteristics of Speech : Appropriate for age Neuro Patient Stated Symptoms : None Gait : Steady Swallowing Difficulty/Aspiration Risk : None JERED VILCHIS RN - 02/24/2015 12:39 CRUSHER SUPERVISOR ED Psychosocial Affect/Behavior : Anxious, Crying Domestic Abuse Concerns : None Behavioral Health Screen/Safety Assmt : No Emotional Support Available : Yes JERED VILCHIS RN - 02/24/2015 12:39 CRUSHER SUPERVISOR Gastrointestinal Nutrition ED : Adequate GI Detailed Assessment : Yes JERED VILCHIS RN - 02/24/2015 12:39 CRUSHER SUPERVISOR GI Detailed GI Patient Stated Symptoms : Abdominal pain, Nausea Bowel Movement Last Date : 02/24/2015 CRUSHER SUPERVISOR Abdomen Description : Obese Abdomen Palpation : Tender Tenderness : Left upper quadrant JERED VILCHIS RN - 02/24/2015 12:39 CRUSHER SUPERVISOR /OB Assessment Patient Stated Symptoms : Frequency, Incontinence Urine Description : Clear Urine Color : Yellow JERED VILCHIS RN - 02/24/2015 12:39 CRUSHER SUPERVISOR Integumentary Integumentary Patient Stated Symptoms : Rash, Ulcers/Sores Skin Turgor : Elastic Mucous Membrane Color : [place] Mucous Membrane Description : Moist Skin Color : Normal for ethnicity Skin Description : Dry Skin Temperature : Warm JERED VILCHIS RN - 02/24/2015 12:39 CRUSHER SUPERVISOR Skin Abnormality/Location Grid Location : Other: GROIN Laterality : Left Abnormality : Other: RAW-RASH Comments (Comment: patient states she has been using OTC yeast cream [JERED VILCHIS RN - 02/24/2015 12:39 CRUSHER SUPERVISOR] ) JERED VILCHIS RN - 02/24/2015 12:39 CRUSHER SUPERVISOR Musculoskeletal Fall Prevention Education Provided : Yes JERED VILCHIS RN - 02/24/2015 12:39 CRUSHER SUPERVISOR EENT EENT Nostril Grid Nares, Left Symptoms : Nasal drainage JERED VILCHIS RN - 02/24/2015 12:39 CRUSHER SUPERVISOR Social Habits Exposure to Tobacco Smoke : Care provider denies smoking in home Smoking Status : Former smoker Tobacco 2A : Yes Tobacco Use/Currently Using : No Tobacco Use/Last 30 Days : No Tobacco Use/Last 12 months : No JERED VILCHIS RN - 02/24/2015 12:39 CRUSHER SUPERVISOR Alcohol Use Grid Alcohol Use : No Last Use : 17 YEARS AGO JERED VILCHIS RN - 02/24/2015 12:39 CRUSHER SUPERVISOR Recreational Drug Use Grid Drug Use : None JERED VILCHIS RN - 02/24/2015 12:39 CRUSHER SUPERVISOR Source: [facility] [employer] Document Id: [id number] CRUSHER SUPERVISOR!110 HER SUPERVISOR Jered Vilchis R.N. - 02/24/2015 12:31 PM CST ED Triage Assessment Document Has Been Updated ED Triage Assessment Entered On: 02/24/2015 12:35 CRUSHER SUPERVISOR Performed On: 02/24/2015 12:31 CRUSHER SUPERVISOR by JERED VILCHIS RN Reason For Visit (As Of: 02/24/2015 12:35:13 CRUSHER SUPERVISOR) Problems(Active) Bleed Nose (ICD-9-CM :784.7 ) Name of Problem: Bleed Nose ; Recorder: ANGELA ZULETA RN; Confirmation: Confirmed ; Classification: Nursing ; Code: 784.7 ; Contributor System: WeOwe ; Last Updated: 05/13/2014 6:25 CRUSHER SUPERVISOR ; Life Cycle Date: 05/13/2014 ; Life Cycle Status: Active ; Responsible Provider: ANGELA ZULETA RN; Vocabulary: ICD-9-CM Hypertension (HTN) NOS (ICD-9-CM :401.9 ) Name of Problem: Hypertension (HTN) NOS ; Recorder: NELLY SHAH MD; Confirmation: Confirmed ; Classification: Medical ; Code: 401.9 ; Contributor System: AutogridChart ; Last Updated: 05/26/2014 9:23 CDT ; Life Cycle Date: 05/26/2014 ; Life Cycle Status: Active ; Vocabulary: ICD-9-CM Rosacea NOS (ICD-9-CM :695.3 ) Name of Problem: Rosacea NOS ; Recorder: NELLY SHAH MD; Confirmation: Confirmed ; Classification: Medical ; Code: 695.3 ; Contributor System: AutogridChart ; Last Updated: 05/27/2014 12:05 CDT ; Life Cycle Date: 05/27/2014 ; Life Cycle Status: Active ; Vocabulary: ICD-9-CM Diagnoses(Active) Flank pain Date: 02/24/2015 ; Diagnosis Type: Reason For Visit ; Confirmation: Complaint of ; Clinical Dx: Flank pain ; Classification: Medical ; Clinical Service: Emergency medicine ; Code: PNED ; Probability: 0 ; Diagnosis Code: [id number] Triage Chief Complaint Description : 69 yo female presents to the ED via private vehicle accompanied with her sister with c/o left flank pain which started last night, pt. states she also has a yeast infection and she has been itching herself raw. Information Given By : Patient Accompanied By : Sibling Mode of Arrival ED : Private vehicle Track : Medical Languages : Tristanian Patient Informed of Triage Location : Emergency department Vital Signs Assessed : Yes GCS Assessed : Yes Treatments Prior to Arrival : Ibuprofen Is Patient Female and 13-50 no hysterectomy : No JERED VILCHIS RN - 02/24/2015 12:31 CRUSHER SUPERVISOR Vital Signs Temperature Core : 37.3 DegC(Converted to: 99.1 DegF) Peripheral Pulse Rate : 94 /min Respiratory Rate : 24 /min (HI) Systolic Blood Pressure : 165 mmHg (>HHI) Diastolic Blood Pressure : 125 mmHg (>HHI) NIBP Mean : 138 mmHg BP Location : Left upper extremity SpO2 : 96 % Oxygen Therapy : Room air Actual Weight : 138 kg Actual Weight Conversion to Pounds : 303.6 lb Weight Source : Bed scale JERED VILCHIS RN - 02/24/2015 12:31 CRUSHER SUPERVISOR [place] Coma Eye Opening Response Chanel : Spontaneously Best Verbal Response [place] : Oriented Best Motor Response Chanel : Obeys simple commands [place] Coma Score : 15 JERED VILCHIS RN - 02/24/2015 12:31 CRUSHER SUPERVISOR Pain Assessment Pain Symptoms : Yes JERED VILCHIS RN - 02/24/2015 12:31 CRUSHER SUPERVISOR Pain Scale Pain Scale Verbal 0-10 : Open JERED VILCHIS RN - 02/24/2015 12:31 CRUSHER SUPERVISOR Pain Pain Assessment Grid Pain 1 Location : Flank Laterality : Left Intensity : 9 Time Pattern : Acute Onset : Gradual Quality : Burning, Sharp Pain Radiation : Yes (Comment: abdomen [JERED VILCHIS RN - 02/24/2015 12:31 CRUSHER SUPERVISOR] ) Aggravating Factors : Movement Associated Symptoms : Nausea Interventions : MD notified JERED VILCHIS RN - 02/24/2015 12:31 CRUSHER SUPERVISOR ED Physician Notification Time ED Physician Notification Time : 02/24/2015 12:34 CRUSHER SUPERVISOR JERED VILCHIS RN - 02/24/2015 12:31 CRUSHER SUPERVISOR JOHANN JOHANN Level 1 : No JOHANN Level 2 : No JOHANN Level 3 : One JERED VILCHIS RN - 02/24/2015 12:31 CRUSHER SUPERVISOR DCP GENERIC CODE Tracking Acuity : 3 -Urgent Tracking Group : [facility] ED JERED VILCHIS RN - 02/24/2015 12:31 CRUSHER SUPERVISOR Allergy (As Of: 02/24/2015 12:35:14 CRUSHER SUPERVISOR) Allergies (Active) NKA Estimated Onset Date: Unspecified ; Created By: CARLEY ZIMMER; Reaction Status: Active ; Category: Drug ; Substance: NKA ; Type: Allergy ; Updated By: CARLEY ZIMMER; Reviewed Date: 02/24/2015 12:35CST ID Screen Drug Resistant Organism : No JERED VILCHIS RN - 02/24/2015 12:31 CRUSHER SUPERVISOR Immunizations Immunizations Current : Yes JERED VILCHIS RN - 02/24/2015 12:31 CRUSHER SUPERVISOR Source: [facility] [employer] Document Id: [id number] CRUSHER SUPERVISOR!61 HER SUPERVISOR documented in this encounter Miscellaneous Notes Miscellaneous - Conversion, Historical Provider Ser - 02/24/2015 4:00 PM CRUSHER SUPERVISOR Coding Summary-Paper Based CODING DATE: 03/04/2015 FINAL [facility] STATUS: * Discharged to Home or Self Care PAYOR: Medicare ADMIT DX: R10.9 Unspecified abdominal pain REASON FOR VISIT DX: R10.9 Unspecified abdominal pain FINAL DX: PRINCIPAL: N20.0 Calculus of kidney SECONDARY: E66.01 Morbid (severe) obesity due to excess calories Z68.45 Body mass index (BMI) 70 or greater, adult B37.9 Candidiasis, unspecified I10 Essential (primary) hypertension PROCEDURES DOCTOR NAME DATE NOTE: The code number assigned matches the documented diagnosis and / or procedure in the patient's chart. However, the narrative phrase printed from the coding software may appear abbreviated, or result in slightly different terminology. Coded By: NADER ROWAN Date Saved: 03/04/2015 01:51 pm Source: [facility] [employer] Document Id: [id number] Jered Hernandez R.N. - 02/24/2015 3:51 PM CST Valuables/Belongings Valuables/Belongings Entered On: 02/24/2015 15:52 CRUSHER SUPERVISOR Performed On: 02/24/2015 15:51 CRUSHER SUPERVISOR by JERED VILCHIS RN Valuables/Belongings Belongings Sent Home With : all belongings sent home with patient Home Medication Disposition : None brought in with patient JERED VILCHIS RN - 02/24/2015 15:51 CRUSHER SUPERVISOR Source: [facility] [employer] Document Id: [id number] CRUSHER SUPERVISOR!4 HER SUPERVISOR Jered Hernandez R.N. - 02/24/2015 3:50 PM CST Discharge Vital Signs Form Discharge Vital Signs Form Entered On: 02/24/2015 15:51 CRUSHER SUPERVISOR Performed On: 02/24/2015 15:50 CRUSHER SUPERVISOR by JERED VILCHIS RN Vital Signs Temperature Core : 36.5 DegC(Converted to: 97.7 DegF) Peripheral Pulse Rate : 85 /min Respiratory Rate : 20 /min Systolic Blood Pressure : 166 mmHg (>HHI) Diastolic Blood Pressure : 94 mmHg (>HHI) NIBP Mean : 118 mmHg BP Location : Left upper extremity SpO2 : 94 % Oxygen Therapy : Room air JERED VILCHIS RN - 02/24/2015 15:50 CRUSHER SUPERVISOR Source: [facility] [employer] Document Id: [id number] CRUSHER SUPERVISOR!11 HER SUPERVISOR Jered Hernandez R.N. - 02/24/2015 12:16 PM CST Facility Charge Ticket 2.0 11.0 DX Facility Charge Ticket 2.0 11.0 DX Entered On: 02/24/2015 15:52 CRUSHER SUPERVISOR Performed On: 02/24/2015 12:16 CRUSHER SUPERVISOR by JERED VILCHIS RN Facility Charge Ticket 2.0 11.0 DX ED Other Charges : Standard ED Encounter TVL Level Translated RTF : Flank pain TVL:4 TVL Level for Facility Charge Ticket : Level 4 Arrival Mode Calc : 129 Mode of Arrival ED : Private vehicle [facility] Mode of Arrival Interpreted : Standard [facility] Process Management : None Order Management RTF : Laboratory Urinalysis with Microscopic,02/24/15 12:39,BEST PATRICIA III, MD Completed CBC (includes Auto Differential),02/24/15 13:02,BEST PATRICIA III, MD Completed Comprehensive Metabolic Panel,02/24/15 13:02,BEST PATRICIA III, MD Completed Automated Diff-5 Part,02/24/15 13:15,BEST PATRICIA III, MD Completed CT / MRI / Ultrasound CT Stone Protocol,02/24/15 13:02,BEST PATRICIA III, MD Completed [facility]x Order Management : CT/MRI/Ultrasound, Lab tests 30 Minutes Critical Care : No Nursing Notes RTF : Triage Forms ED Triage Assessment,02/24/15 12:31,JERED VILCHIS RN Nursing Notes ED Primary Assessment,02/24/15 12:39,JERED VILCHIS RN ED Pain Assessment,02/24/15 15:51,JERED VILCHIS RN [facility] Nursing Assessment : Triage and 3-5 nursing assessments [facility]x Disposition : Discharge Disposition RTF : discharge [facility] Total Points with Diagnosis Control : 11 [facility]x Visit Level : 99052 Level 4 Treatments Prior to Arrival : Ibuprofen JERED VILCHIS RN - 02/24/2015 15:52 CRUSHER SUPERVISOR Chief Complaint 11.0 Reason For Visit Category : Genitourinary TVL Calculation : 12 ED Chief Complaint Genitourinary 11.0 : Flank pain TVL for Facility Charge Ticket Dx : Level 4 JERED VILCHIS RN - 02/24/2015 15:52 CRUSHER SUPERVISOR [facility] Document Id: [id number] CRUSHER SUPERVISOR!24 HER SUPERVISOR documented in this encounter Plan of Treatment Not on filedocumented as of this encounter Procedures Procedure Name Priority Date/Time Associated Comments Diagnosis AUTOMATED Routine 02/24/2015 1:13 PM Results f or this DIFFERENTIAL, B CRUSHER SUPERVISOR procedure ar e in the results section. CBC WITH DIFFERENTIAL, Routine 02/24/2015 1:13 PM Results for this B CRUSHER SUPERVISOR procedure are i n the results section. COMPREHENSIVE Routine 02/24/2015 1:13 PM Results for this METABOLIC PANEL, S/P CRUSHER SUPERVISOR procedu re are in the results section. URINALYSIS WITH Routine 02/24/2015 12:44 Results for this MICROSCOPIC PM CRUSHER SUPERVISOR procedure are i n the results section. documented in this encounter Results (ABNORMAL) Automated Differential (02/24/2015 1:13 PM CRUSHER SUPERVISOR) Patholo gist Method Time Signature Absolute 7.76 (H) 1.70 - POWERCHART Neutrophils 7.00 109L Lymphocytes 1.88 0.90 - POWERCHART 2.90 X109L Monocytes 0.60 0.30 - POWERCHART 0.90 X109L Eosinophils 0.22 0.05 - POWERCHART 0.50 X109L Absolute 0.04 0.00 - POWERCHART Basophil 0.30 X109L Specimen Anatomical Collection Method Collection Time Receive d Time (Source) Location / / Volume Laterality Blood 02/24/2015 1:13 PM 5 1:13 CRUSHER SUPERVISOR PM CRUSHER SUPERVISOR Best Patricia III, M.D. LAB BLOOD ADD-ON Performing Organization Address City/State/ZIP Code Phon e Number POWERCHART (ABNORMAL) CBC with Differential (02/24/2015 1:13 PM CRUSHER SUPERVISOR) Analysis Performed At Patho logist Time Signature Leukocytes 10.5 3.4 - 10.5 POWERCHART X109L Erythrocytes 5.13 (H) 3.90 - POWERCHART 5.03 [id number] Hemoglobin 13.7 12.0 - POWERCHART 15.5 GDL Hematocrit 42.6 34.9 - POWERCHART 44.5 MCV 83.0 82.0 - POWERCHART 98.0 FL HX RDW 14.9 11.9 - POWERCHART 15.5 Platelet Count 285 150 - 450 POWERCHART X109L Specimen (Source) Anatomical Collection Method Collection Time Re ceived Time Location / / Volume Laterality Blood 02/24/2015 1:13 PM CRUSHER SUPERVISOR Best Patricia III, M.D. LAB BLOOD ADD-ON Performing Organization Address City/State/ZIP Code Phon e Number POWERCHART (ABNORMAL) CMP (Comprehensive Metabolic Panel) (02/24/2015 1:13 PM CRUSHER SUPERVISOR) [facility] Method Time Signature Alanine 32 7 - 45 POWERCHART Amniotransferase, LD UNITL Albumin, S 4.0 3.5 - 5.0 POWERCHART GDL Alkaline 118 55 - 142 POWERCHART Phosphatase, S UL Aspartate 29 8 - 43 POWERCHART Aminotransferase UNITL (AST), S Sodium, S 137.5 135.0 - POWERCHART 145.0 MML Potassium, S 4.1 3.6 - 4.8 POWERCHART MMOLL Chloride, S 103 98 - 107 POWERCHART MMOLL CO2 Total 27.5 23.0 - POWERCHART 29.0 MMOLL BUN (Blood Urea 20 (H) 7 - 18 POWERCHART Nitrogen), S MGDL Creatinine 0.84 0.60 - POWERCHART 1.30 MGDL Calcium, Total, S 9.4 8.8 - POWERCHART 10.2 MGDL Anion Gap 7 (L) 10 - 20 POWERCHART MMOLL HXeGFR (MDRD) >60 >=60 POWERCHART [id number] 2 eGFR Black/ >60 >=60 POWERCHART South African [id number] 2 Bilirubin, Total, S 0.3 0.1 - 1.0 POWERCHART MGDL Total Protein, S 7.0 6.3 - 7.9 POWERCHART GDL Glucose 156 (H) 70 - 139 POWERCHART MGDL Specimen (Source) Anatomical Collection Method Collection Time Re ceived Time Location / / Volume Laterality Blood 02/24/2015 1:13 PM CRUSHER SUPERVISOR Best Patricia III, M.D. LAB BLOOD ADD-ON Performing Organization Address City/State/ZIP Code Phon e Number POWERCHART (ABNORMAL) Urinalysis, Complete, Includes Microscopic (02/24/2015 12:44 PM CRUSHER SUPERVISOR) [facility] Method Time Signature Clarity Slightly Clear POWERCHART Cloudy (A) HXUr Color Yellow Colorless POWERCHART Specific 1.015 POWERCHART [place], POCT, U pH, POCT, Urine 6.5 <5.0 POWERCHART Protein, Ur, Negative Negative POWERCHART Dip MGDL Glucose Negative Negative POWERCHART MGDL Ketones, QL(U) Negative Negative POWERCHART MGDL HXBILIRUBIN Negative Negative POWERCHART HXBLOOD Negative Negative POWERCHART Leukocyte Trace (A) Negative POWERCHART Esterase HXNITRITE Negative Negative POWERCHART Urobilinogen 1.0 0.2 MGDL POWERCHART HXUR WBC. None Seen None Seen POWERCHART HPF HXUR RBC. None Seen None Seen POWERCHART HPF Squamous Occ-3 (A) None Seen POWERCHART Epithelial HPF Crystals Present (A) None Seen POWERCHART Comment: few amorphous Mucus Present (A) None Seen POWERCHART Specimen (Source) Anatomical Collection Method Collection Time Re ceived Time Location / / Volume Laterality Urine, First 02/24/2015 12:44 Voided PM CRUSHER SUPERVISOR Best Patricia III, M.D. LAB URINE ORDERABLES Performing Organization Address City/State/ZIP Code Phon e Number POWERCHART documented in this encounter Visit Diagnoses Not on filedocumented in this encounter Additional Health Concerns Assessment Noted Time PHQ-9 Depression Total Score: 3 05/13/2013 2:06 PM CRUSHER SUPERVISOR documented as of this encounter
--- NOTE | 2021-12-22 21:58 | ED_ITS ---
History of Present Illness General Chief Complaint: Epistaxis/Nosebleed Stated Complaint: Bloody nose Time Seen by Provider: 12/22/21 21:14 History of Present Illness HPI Narrative: Pt is a 76 year old woman with a history of recurrent epistaxis who presents acutely with epistaxis. She has been bleeding primarily from the left nostril for the past hour. By the time I saw her, the bleeding had completely stopped. She takes flonase but not regularly and has needed repeated cauderizations. Pt feels well and has no further symptoms. No signs of unstable blood pressure or anemia. She has been holding direct pressure on her nose since the bleeding started spontaneously while she was eating supper. She does not take antiplatelet or anticoagulant medications. Related Data Allergies Allergy/AdvReac Type Severity Reaction Status Date / Time No Known Drug Allergies Allergy Verified 12/22/21 21:10 Review of Systems Status of ROS: Reports: 10 or more systems reviewed and unremarkable except as noted in History and below Exam Narrative: Exam Narrative: EXAM GENERAL: Patient appears comfortable and well. EYES: No scleral icterus. ENT: Tympanic membranes and oropharynx normal. Nose exam shows hyperemia of the nasal turbinates. No signs of coagulated blood no acute bleeding. THYROID: no thyroid nodules or thyromegaly. LYMPH: No supraclavicular or cervical lymphadenopathy. SKIN: Visible skin seen during exam normal or with benign process only. EXT: No dependent lower extremity pedal edema. HEART: Regular rate and rhythm with no murmurs, rubs, or gallops. LUNGS: Clear to auscultation bilaterally with no crackles or wheezes. ABD: Soft, non tender, non distended. PSYCH: Good eye contact, speech is not pressured. Course Course Hospital Course: Pt bleeding had stopped prior to my assessment. We are going to observe her for the next hour. Reevaluation(s) Reevaluation #1: Pt's nose still not bleeding. Time: 22:04 MDM - Epistaxis MDM Narrative Medical decision making narrative: Pt with recurrent epistaxis presents with acute nose bleed which stops prior to my assessment. Pt observed. Still no bleeding. Feeling well. Will send home to use flonase daily and follow up. Differential Diagnosis Differential diagnosis: Likely nasal bone fracture, anterior epistaxis and posterior epistaxis Discharge Plan Discharge Clinical Impression: Epistaxis Patient Disposition: Home, Self-Care Condition: Stable Instructions: Nosebleed (ED) Additional Instructions: Flonase daily Activity Level: No Restrictions Discharge Diet: Regular Follow Up/Referrals: Delano Lemus MD [Primary Care Provider] - Stand Alone Forms: [employer] Info Instructions
--- NOTE | 2021-12-22 22:19 | ED.NURSE ---
education on b/p monitoring and reporting back to PCP, dc info and education on nose bleed management at home.
== END 2021-12-22 22:23 | disposition home or self-care (01) ==
PROVIDERS: Emergency Provider Internal Medicine; PCP Student in an Organized Health Care Education/Training Program
DX: R04.0 Epistaxis (principal)
CPT/HCPCS: 99282; 99283

== ENCOUNTER 2022-01-17 18:37 | Emergency (ER) | payer MEDICARE, OTHER, SELFPAY ==
[2022-01-17 19:22] VITALS: BP 200/94; PULSE 18; RESP 16; TEMP 36.6; O2SAT 98
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
[2022-01-17] MEDS: COCAINE HCL 4 % 4 ML SOLUTION NOSTRIL-B (20:00)
--- OUTSIDE RECORDS SUMMARY | 2022-01-17 20:14 | XMS_ITS | Encounter Summary ---
:1945 Author Organization [facility] Address [address] [place] [address] Care Team Providers Name Role Phone Suhail Lemus M.D. Primary Care Provider Reason for Visit Reason Comments Back Pain Encounter Details Date Type Department Care Team Description 06/30/2021 Nurse Triage Department of [facility] Adele Infante, Back Pain Medicine, [facility], R.N. in [place], [place] [address] [place] [address] Social History Tobacco Use Types Packs/Day Years [...] AND [2] still hurts Protocols used: BACK [id number] documented in this encounter Plan of Treatment Not on filedocumented as of this encounter Visit Diagnoses Not on filedocumented in this encounter Additional Health Concerns Assessment Noted Time PHQ-9 Depression Total Score: 3 05/13/2013 2:06 PM SALES RESEARCH ANALYST documented as of this encounter Care Teams Yarn Man Relationship Specialty Start Date End Date Suhail Lemus M.D. PCP - General Family Medicine 09/19/[address] [place] [phone] documented as of this encounter
--- OUTSIDE RECORDS SUMMARY | 2022-01-17 20:14 | XMS_ITS | Encounter Summary ---
:1945 Author Organization [facility] Address [address] [place] [address] Care Team Providers Name Role Phone Suhail Lemus M.D. Primary Care Provider Reason for Visit Reason Comments COVID Nurse Line Encounter Details Date Type Department Care Team Description 01/26/2021 Clinical Communication Division of Phoebe Reyes C OVID Nurse [facility] [phone] [place], in (Work) [place], [place] [address] [place] [address] Social History Tobacco Use Types Packs/Day Years [...] the CDC for additional recommendations or information: https://www.cdc.gov/coronavirus/2019-ncov/travelers/vfvflh-xnaddk-jfqop18.html [facility] documented in this encounter Plan of Treatment Not on filedocumented as of this encounter Visit Diagnoses Not on filedocumented in this encounter Additional Health Concerns Assessment Noted Time PHQ-9 Depression Total Score: 3 05/13/2013 2:06 PM DIRECTOR DENTAL SERVICES documented as of this encounter Care Teams Inspector Multifocal Lens Relationship Specialty Start Date End Date uShail Lemus M.D. PCP - General Family Medicine 09/19/[address] [place] [phone] documented as of this encounter
--- OUTSIDE RECORDS SUMMARY | 2022-01-17 20:14 | XMS_ITS | Encounter Summary ---
:1945 Author Organization [facility] Address [address] [place] [address] Care Team Providers Name Role Phone Suhail Lemus M.D. Primary Care Provider Encounter Details Date Type Department Care Team Description 10/30/2021 Hospital Encounter Department of Kalie Nance Essential Primary; Laboratory Medicine M, FIELD HANDYMAN, Impaired Fasting Glucose; in [place], C.N.P., D.N.P. Screening Lipid [address] [phone] Social History Tobacco Use Types Packs/Day [...] azelaic acid (FINACEA) 15 application. 0 03/03/20 15 % gel azelastine (ASTELIN) 137 Administer [...] Code Phon e Number [facility]- [address] [place] [address] [place] [address] [facility] [place] [address] System in [place] [address] [address] (ABNORMAL) Creatinine with Estimated GFR (10/30/2021 9:29 AM CDT) athologist Signature Creatinine 0.98 0.59 - 10/30/2021 CNFL 1.04 mg/dL 9:56 AM CDT eGFR-Black/Afric 65 >=60 10/30/2021 CNFL an Ivorian mL/min/BSA 9:56 AM CDT Comment: ----ADDITIONAL INFORMATION---- Estimated GFR calculated using the 2009 CKD_EPI creatinine equation. eGFR Non-Black/ 56 (L) >=60 mL/min/BSA 10/30/2021 9:56 AM CDT CNFL Ivorian Comment: ----ADDITIONAL INFORMATION---- Estimated GFR calculated using the 2009 CKD_EPI creatinine equation. Specimen Anatomical Collection Method Collection Time Receive d Time (Source) Location / / Volume Laterality Blood (Blood, 10/30/2021 9:29 AM 10/31/19 9:29 Venous) CDT AM CDT Brayan Brumfield APRN.N.P., D.N.P. LAB BLOOD ADD-ON Performing Organization Address City/[facility] Phon e Number [address] [address] [place] [address] System [place] [address] [address] Potassium (10/30/2021 9:29 AM CDT) P athologist Signature Potassium, P 4.0 3.6 - 5.2 10/30/2021 CNFL mmol/L 9:56 AM CDT Specimen Anatomical Collection Method Collection Time Receive d Time (Source) Location / / Volume Laterality Blood (Blood, 10/30/2021 9:29 AM 10/31/19 9:29 Venous) CDT AM CDT Kalie Nance APRN, Brayan.N.P., D.N.P. LAB BLOOD ADD-ON Performing Organization Address City/[facility] Code Phon e Number [address] [address] [place] [place] [address] System in [place] [address] [address] Sodium (10/30/2021 9:29 AM CDT) P athologist Signature Sodium, P 138 135 - 145 10/30/2021 9:56 CNFL mmol/L AM CDT Specimen Anatomical Collection Method Collection Time Receive d Time (Source) Location / / Volume Laterality Blood (Blood, 10/30/2021 9:29 AM 10/31/19 9:29 Venous) CDT AM CDT Brayan Brumfield APRN.N.P., D.N.P. LAB BLOOD ADD-ON Performing Organization Address City/[facility]/ZIP Code Phon e Number [address] [address] [place] [address] System [address] (ABNORMAL) Hemoglobin A1c (10/30/2021 9:27 AM [...] D.N.P. LAB BLOOD ADD-ON Performing Organization Address City/[facility] Code Phon e Number [address] [address] [place] [address] System in [address] documented in this encounter Visit Diagnoses Diagnosis Hypertension Essential Primary Impaired Fasting Glucose Screening Lipid documented in this encounter Additional Health Concerns Assessment Noted Time PHQ-9 Depression Total Score: 3 05/13/2013 2:06 PM GENERAL FARM HAND documented as of this encounter Care Teams Sports Development Officer Relationship Specialty Start Date End Date Suhail Lemus M.D. PCP - General Family Medicine 09/19/[address] [place] [phone] documented as of this encounter
--- OUTSIDE RECORDS SUMMARY | 2022-01-17 20:14 | XMS_ITS | Encounter Summary ---
:1945 Author Organization [facility] Address [address] [place] [address] Care Team Providers Name Role Phone Suhail Lemus M.D. Primary Care Provider Encounter Details Date Type Department Care Team Description 10/30/2021 Clinical Communication Department of Damir Hwang, Medicine, [facility] Szymanski M[facility] Clinic, in [address] [phone] Social History Tobacco Use Types Packs/Day Years Used Date Smoking Tobacco: Former Smokeless Tobacco: Never Alcohol Use Standard Drinks/Week Comments No 0 (1 standard drink = 0.6 oz pure alcoho l) Sex Assigned at Date Recorded Not on file documented as of this encounter Miscellaneous Notes Telephone Encounter - Trista Fernando, LSariahPSariahN. - 10/31/2021 10:21 AM CDT SUBJECTIVE CHIEF [...] called again - please call her back [phone] Telephone Encounter - Kalie Nance APRN, C.N.PSariah, [...] Depression Total Score: 3 05/13/2013 2:06 PM WELT STITCH CLEANER documented as of this encounter Care Teams Industrial Ecologist Relationship Specialty Start Date End Date Suhail Lemus M.D. PCP - General Family Medicine 09/19/[address] [place] [phone] documented as of this encounter
--- OUTSIDE RECORDS SUMMARY | 2022-01-17 20:14 | XMS_ITS | Encounter Summary ---
:1945 Author Organization [facility] Address [address] [place] [address] Care Team Providers Name Role Phone Suhail Lemus M.D. Primary Care Provider Reason for Referral Outpatient (Routine) - Closed Specialty Diagnoses / Procedures Referred By Contact Refer red To Contact Suhail Lemus M. D. [facility] Region [address] [phone] Referral ID Status Reason Start Date Expiration Date Visits Requ ested Visits Authorized [id number] Closed 08/22/2021 08/22/2022 1 1 Outpatient (Routine) - Authorized Specialty Diagnoses / Procedures Referred By Contact Refer red To Contact Diagnoses Deficiency Estrogen Post Menopausal Suhail Lemus M.D. [facility] Region Procedures BMD Bone Density Spine Hips [address] [place] [phone] Referral ID Status Reason Start Date Expiration Date Visits V isits Requested Authorized [id number] Authorized 08/22/2021 08/22/2022 1 1 Encounter Details Date Type Department Care Team Description 08/22/2021 Orders Only [facility] SEM[facility] PCP TH MNT Alana Melton De ficiency Estrogen M.D. Post Menopausal [address] [place] [address] Social History Tobacco Use Types Packs/Day Years [...] Routine Ex pected: visit (clinic) - 09/05/2021, [facility]; Expires: BP check; BP check 2 only (SUPPLIER QUALITY ENGINEER) documented as of this encounter Visit Diagnoses Diagnosis Deficiency Estrogen Post Menopausal documented in this encounter Additional Health Concerns Assessment Noted Time PHQ-9 Depression Total Score: 3 05/13/2013 2:06 PM OYSTER HARVESTER documented as of this encounter Care Teams Acting Instructor Relationship Specialty Start Date End Date Suhail Lemus M.D. PCP - General Family Medicine 09/19/[address] [place] [phone] documented as of this encounter
--- OUTSIDE RECORDS SUMMARY | 2022-01-17 20:14 | XMS_ITS | Encounter Summary ---
:1945 Author Organization [facility] Address [address] [place] [address] Care Team Providers Name Role Phone Suhail Lemus M.D. Primary Care Provider Reason for Referral Outpatient (Routine) - Closed Specialty Diagnoses / Procedures Referred By Contact Refer red To Contact Family Medicine Kalie Nance APRN, [facility] Region C.N.P., D.N.P. [address] [place] [phone] Referral ID Status Reason Start Date Expiration Date Visits Requ ested Visits Authorized [id number] Closed 2021 2022 1 1 utpatient (Routine) - Authorized Specialty Diagnoses / Procedures Referred By Contact Refer red To Contact Kalie Nance APRN, C.N.PSariah, [facility] Region D.N.P. [address] [place] [phone] Referral ID Status Reason Start Date Expiration Date Visits V isits Requested Authorized [id number] Authorized 2021 2022 1 1 Reason for Visit Reason Comments Shortness of Breath Appointment Request (Routine) - Closed Specialty Diagnoses / Procedures Referred By Contact Refer red To Contact Family Medicine Referral ID Status Reason Start Date Expiration Date Visits Requ ested Visits Authorized [id number] Closed 09/14/2021 09/14/2022 1 1 Encounter Details Date Type Department Care Team Description 2021 Office Visit Department of Family Kalie Nance, Dillon pertension Essential Primary (Primary Dx); MedicineRoni APRN, C.N.P., Apnea Slee p Obstructive; [facility], in D.N.P. Impaired Fasting Glucose; [place] [address] Screening L ipid; [facility] Morbid Obesity (HCC); [address] [place] [address] Body Mass Index 50.0 To 59.9 Adult (HCC); [place] [address] Insufficiency Venous [phone] Social History Tobacco Use Types Packs/Day Years [...] understanding of the content. Kalie Nance APRN, Brayan.N.P., D.N.P. Total time: 26 minutes documented in [...] Organization Address City/State/ZIP Code Phon e Number [facility]- [address] [place] [address] [place] [address] [place] [address] System in [address] (ABNORMAL) Creatinine with Estimated GFR (10/30/2021 9:29 AM CDT) P athologist Signature Creatinine 0.98 0.59 - 10/30/2021 CNFL 1.04 mg/dL 9:56 AM CDT eGFR-Black/Afric 65 >=60 10/30/2021 CNFL an Singaporean mL/min/BSA 9:56 AM CDT Comment: ----ADDITIONAL INFORMATION---- Estimated GFR calculated using the 2009 CKD_EPI creatinine equation. eGFR Non-Black/ 56 (L) >=60 mL/min/BSA 10/30/2021 9:56 AM CDT CNFL Singaporean Comment: ----ADDITIONAL INFORMATION---- Estimated GFR calculated using the 2009 CKD_EPI creatinine equation. Specimen Anatomical Collection Method Collection Time Receive d Time (Source) Location / / Volume Laterality Blood (Blood, 10/30/2021 9:29 AM 10/31/19 9:29 Venous) CDT AM CDT Brayan Brumfield APRN.N.P., D.N.P. LAB BLOOD ADD-ON Performing Organization Address [facility] Phon e Number [address] [place] [address] System in [place] [address] [address] Potassium (10/30/2021 9:29 AM CDT) P athologist Signature Potassium, P 4.0 3.6 - 5.2 10/30/2021 CNFL mmol/L 9:56 AM CDT Specimen Anatomical Collection Method Collection Time Receive d Time (Source) Location / / Volume Laterality Blood (Blood, 10/30/2021 9:29 AM 10/31/19 9:29 Venous) CDT AM CDT Merry Brumfield APRNN.P., D.N.P. LAB BLOOD ADD-ON Performing Organization Address City/[facility]/ZIP Code Phon e Number [address] [address] [place] [address] System in [place] [address] [address] Sodium (10/30/2021 9:29 AM CDT) P athologist Signature Sodium, P 138 135 - 145 10/30/2021 9:56 CNFL mmol/L AM CDT Specimen Anatomical Collection Method Collection Time Receive d Time (Source) Location / / Volume Laterality Blood (Blood, 10/30/2021 9:29 AM 10/31/19 9:29 Venous) CDT AM CDT Kalie M Lindbeck SYSTEMS SOFTWARE DESIGNER, C.N.P., D.N.P. LAB BLOOD ADD-ON Performing Organization Address City/State/ZIP Code Phon e Number [facility]- [address] [place] [address] [place] [address] (ABNORMAL) Hemoglobin A1c (10/30/2021 9:27 [...] Performing Organization Address City/[facility] Code Phon e Number [facility]- [address] [place] [address] [place] [address] System in [address] documented in this encounter Visit Diagnoses Diagnosis Hypertension Essential Primary - Primary Apnea Sleep Obstructive Impaired Fasting Glucose Screening Lipid Morbid Obesity (HCC) Body Mass Index 50.0 To 59.9 Adult (HCC) Insufficiency Venous documented in this encounter Additional Health Concerns Assessment Noted Time PHQ-9 Depression Total Score: 3 05/13/2013 2:06 PM SCHEDULING AGENT documented as of this encounter Care Teams Soap Drier Tender Relationship Specialty Start Date End Date Suhail Lemus M.D. PCP - General Family Medicine 09/19/[address] [place] [phone] documented as of this encounter
--- OUTSIDE RECORDS SUMMARY | 2022-01-17 20:14 | XMS_ITS | Encounter Summary ---
:1945 Author Organization [facility] Address [address] [place] [address] Care Team Providers Name Role Phone Suhail Lemus M.D. Primary Care Provider Reason for Visit Reason Comments Leg Swelling Encounter Details Date Type Department Care Team Description 09/14/2021 Nurse Triage Department of Family Florina Zazueta, Leg Swelling Medicine, [place] R.Sariah [facility], in [place], (Wo [address] [phone] Social History Tobacco Use Types [...] 24 hours. Patient was warm transferred to [place] at the clinic for further assistance. Reason for Disposition ??? [1] MODERATE leg swelling (e.g., swelling extends up to knees) AND [2] new- onset or worsening Protocols used: LEG SWELLING AND [id number] Care Advice Patient/Caregiver understands and will follow care advice?: Yes, able to teach back SEE HCP (OR PCP TRIAGE) WITHIN 4 HOURS: * IF OFFICE WILL BE OPEN: You need to be seen within the next 3 or 4 hours. Call your doctor (or CONTROL SUPERVISOR/PA) now or as soon as the office [...] need to be seen. Your doctor (or CONTROL SUPERVISOR/PA) will want to talk with you to [...] and injuries). The triager must know the C capabilities before sending a patient there. If [...] Depression Total Score: 3 05/13/2013 2:06 PM ASTRONAUTICAL ENGINEER documented as of this encounter Care Teams Boat Canvas Maker And Installer Relationship Specialty Start Date End Date Suhail Lemus M.D. PCP - General Family Medicine 09/19/[address] [place] [phone] documented as of this encounter
--- OUTSIDE RECORDS SUMMARY | 2022-01-17 20:14 | XMS_ITS | Encounter Summary ---
:1945 Author Organization [facility] Address [address] [place] [address] Care Team Providers Name Role Phone Suhail [...] Expiration Date Visits Requ ested Visits Authorized [id number] Closed 08/31/2020 08/31/2021 1 1 Encounter Details Date Type Department Care Team Description 09/14/2020 Office Visit Department of Family Lise Wang Pai n Back (Primary Dx); Medicine, [place] Francisca Stevens; Clinic, in [facility]; [place], [place] [facility]; [address] [place] [address] BLVD Screening Cancer Colon; [place], [place] Morbid Obes ity Body Mass Index 50.0-59.9 Adult ([facility]) [phone] Social History Tobacco Use Types Packs/Day [...] Hyde. et al, N Engl J Med 2014;370(14):0414-4301) The n ormal value (reference range) for this assay is nega tive. COLOGUARD RE-SCREENING RECOMMENDATION: P eriodic colorectal cancer screening is an important part of preventive healthcare for asymptomatic individuals at average risk for colorectal cancer. ??Following a negativ e Cologuard result, the [place] Cancer Society and U.S. Mul ti-Society Task Force screening guidelines recommend a C ologuard re-screening interval of 3 years. References: [place] Cancer Society Sanjuanita linares for Colorectal Cancer Screening: https://www.cancer.org/cancer/colon-rect al-cancer/detection- diagnosis-staging/acs-recommendations.ht ml.; Bashir JULIEN, Marie MOYA, Karen TRENT, Colorectal Cancer Aguilar garcia: Recommendations for Physicians and Patie nts from [...] Vick al, N Engl J Med 2014;3 70(14):8144-4328.) Cologuard may produce a false negative o r false positive result (no colorectal cancer or precance tova polyp present at colonoscopy follow up). A negative Co loguard test result does not guarantee the absence of CRC or advanced adenoma (pre-cancer). The current Cologuard scre ening interval is every 3 years. ([place] Cancer Society and U.S. Multi-Society Task Force). Cologuard per formance data in a 10,000 patient pivotal study using colon oscopy as the reference method can be accessed at the following location: www.[employer].Whelse/results. Additional de scription of the Cologuard test process, warnings and pre cautions can be found at www.cologuard.com. Specimen Anatomical Collection Method Collection Time Receive d Time (Source) Location / / Volume Laterality Stool (Stool) 09/20/2020 7:30 PM 09/24/19 21 2:57 CDT PM CDT Lise Wang P.A.-C., P.A. LAB BODY FLUIDS AND STOOL S ORDERABLES Performing Organization Address City/State/ZIP Code Phon e Number [employer] [address] [place] [address] [address] [place] [address] [employer] [address] [place] [address], [address] documented in this encounter Visit Diagnoses Diagnosis Pain Back - Primary Diarrhea Rosacea [facility] Screening Cancer Colon Morbid Obesity Body Mass Index 50.0-59.9 Adult (HCC) documented in this encounter Additional Health Concerns Assessment Noted Time PHQ-9 Depression Total Score: 3 05/13/2013 2:06 PM STRING STUDIES DIRECTOR documented as of this encounter Care Teams Rubber Block Layer Relationship Specialty Start Date End Date Suhail Lemus M.D. PCP - General Family Medicine 09/19/[address] [place] [phone] documented as of this encounter
--- OUTSIDE RECORDS SUMMARY | 2022-01-17 20:14 | XMS_ITS | Encounter Summary ---
:1945 Author Organization [facility] Address [address] [place] [address] Care Team Providers Name Role Phone Suhail Lemus M.D. Primary Care Provider Encounter Details Date Type Department Care Team Description 01/11/2021 Orders Only [facility] PCP [facility] Sa morena Melton M.D. [address] [place], [place] [phone] (Wo rk) Social History [...] Depression Total Score: 3 05/13/2013 2:06 PM DEPARTMENT MANAGER documented as of this encounter Care Teams Sanitation Worker Hosing Machinery Relationship Specialty Start Date End Date Suhail Lemus M.D. PCP - General Family Medicine 09/19/[address] [place] [phone] documented as of this encounter
--- OUTSIDE RECORDS SUMMARY | 2022-01-17 20:14 | XMS_ITS | Encounter Summary ---
:1945 Author Organization [facility] Address [address] [place] [address] Care Team Providers Name Role Phone Suhail Lemus M.D. Primary Care Provider Reason for Visit Reason Comments Results Encounter Details Date Type Department Care Team Description 07/07/2021 Clinical Communication Department of [facility] Damir Lemus, Results Medicine, [facility]oni Szymanski M.D. Clinic, in [address] [phone] Social History Tobacco Use Types Packs/Day Years Used Date Smoking Tobacco: Former Smokeless Tobacco: Never Alcohol Use Standard Drinks/Week Comments No 0 (1 standard drink = 0.6 oz pure alcoho l) Sex Assigned at Date Recorded Not on file documented as of this encounter Miscellaneous Notes Telephone Encounter - Kika Johnston, LSariahP.N. - 07/07/2021 10:56 AM CDT This was [...] is very frustrated. Please contact Kristen, at [phone]. We may leave a detailed message, should we receive her voicemail. Telephone Encounter - Elijah Talamantes - 07/07/2021 8:04 AM CDT TEST RESULT QUESTION: Type of test: Several labs with x-rays Date of test: 07/05 Which provider/department ordered the test? Mariah Comments: Please call back at [phone]. Route to [facility] pool of ordering provider. documented in this encounter Plan of Treatment Not on filedocumented as of this encounter Visit Diagnoses Not on filedocumented in this encounter Additional Health Concerns Assessment Noted Time PHQ-9 Depression Total Score: 3 05/13/2013 2:06 PM RUNNING INSTRUCTOR documented as of this encounter Care Teams Cd Reactor Operator Head Relationship Specialty Start Date End Date Suhail Lemus M.D. PCP - General Family Medicine 09/19/[address] [place] [phone] documented as of this encounter
--- OUTSIDE RECORDS SUMMARY | 2022-01-17 20:14 | XMS_ITS | Encounter Summary ---
:1945 Author Organization [facility] Address [address] [place] [address] Care Team Providers Name Role Phone Suhail Lemus M.D. Primary Care Provider Reason for Visit Reason Comments Xray Results Encounter Details Date Type Department Care Team Description 07/06/2021 Clinical Communication Department of Damir Hwang, Xray Results Medicine, Roni Colvin [address] [address] [place], [place] [phone] (Work) [phone] Social History Tobacco Use Types Packs/Day Years [...] Depression Total Score: 3 05/13/2013 2:06 PM CERTIFIED DENTAL ASSISTANT documented as of this encounter Care Teams Manager Appointment Relationship Specialty Start Date End Date Suhail Lemus M.D. PCP - General Family Medicine 09/19/[address] [place] [phone] documented as of this encounter
--- OUTSIDE RECORDS SUMMARY | 2022-01-17 20:14 | XMS_ITS | Encounter Summary ---
:1945 Author Organization [facility] Address [address] [place] [address] Care Team Providers Name Role Phone Suhail Lemus M.D. Primary Care Provider Reason for Visit Reason Comments Results Previous labs Encounter Details Date Type Department Care Team Description 07/10/2021 Clinical Communication Department of Rita Lemus (Previous Family MedicineSuhail M.D. labs ) [address], [address] [phone] [facility] [phone] [place], [place] (Work) [phone] Social History Tobacco Use Types Packs/Day Years Used Date Smoking Tobacco: Former Smokeless Tobacco: Never Alcohol Use Standard Drinks/Week Comments No 0 (1 standard drink = 0.6 oz pure alcoho l) Sex Assigned at Date Recorded Not on file documented as of this encounter Miscellaneous Notes Telephone Encounter - Melonie Summers S, C.M.A. - 07/11/2021 3:25 PM CDT SUBJECTIVE CHIEF [...] Depression Total Score: 3 05/13/2013 2:06 PM MEDICAL SERVICE REPRESENTATIVE documented as of this encounter Care Teams Early Intervention School Psychologist Relationship Specialty Start Date End Date Suhail Lemus M.D. PCP - General Family Medicine 09/19/[address] [place] [phone] documented as of this encounter
--- OUTSIDE RECORDS SUMMARY | 2022-01-17 20:14 | XMS_ITS | Encounter Summary ---
:1945 Author Organization [facility] Address [address] [place] [address] Care Team Providers Name Role Phone Suhail Lemus M.D. Primary Care Provider Reason for Referral Outpatient (Routine) - Closed Specialty Diagnoses / Procedures Referred By Contact Refer red To Contact Diagnoses Dyspnea On Exertion Suhail Lemus M.D. [facility] [place] [facility] Procedures DX Chest AP or PA and Lateral [address] [place] [phone] Referral ID Status Reason Start Date Expiration Date Visits Requ ested Visits Authorized [id number] Closed 07/05/2021 07/05/2022 1 1 Reason for Visit Outpatient (Routine) - Closed Specialty Diagnoses / Procedures Referred By Contact Refer red To Contact Diagnoses Dyspnea On Exertion Suhail Lemus M.D. [facility] [place] [facility] Procedures DX Chest AP or PA and Lateral [address] [place] [phone] Referral ID Status Reason Start Date Expiration Date Visits Requ ested Visits Authorized [id number] Closed 07/05/2021 07/05/2022 1 1 Encounter Details Date Type Department Care Team Description 07/05/2021 Hospital Encounter Department of Mariah, Dyspnea On Exertion Radiology in [place]isha Luz [address] [place], [phone] [place] [phone] Social History Tobacco Use Types Packs/Day Years [...] Take 1 capsule (100 20 capsule 0 12/29/ 020 2021 (VIBRAMYCIN) 100 mg mg total) [...] Depression Total Score: 3 05/13/2013 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 PCP - General Family Medicine 09/19/[address] [place] [phone] documented as of this encounter
--- OUTSIDE RECORDS SUMMARY | 2022-01-17 20:14 | XMS_ITS | Encounter Summary ---
:1945 Author Organization [facility] Address [address] [place] [address] Care Team Providers Name Role Phone Suhail Lemus M.D. 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 PCP - General Family Medicine 09/19/[address] [place] [phone] documented as of this encounter
--- OUTSIDE RECORDS SUMMARY | 2022-01-17 20:14 | XMS_ITS | Encounter Summary ---
:1945 Author Organization [facility] Address [address] [place] [address] Care Team Providers Name Role Phone Suhail Lemus M.D. Primary Care Provider Reason for Referral Outpatient (Routine) - Closed Specialty Diagnoses / Procedures Referred By Contact Refer red To Contact Diagnoses Dyspnea On Exertion Suhail Lemus M.D. [facility] [place] [facility] Procedures DX Chest AP or PA and Lateral [address] [place] [phone] Referral ID Status Reason Start Date Expiration Date Visits Requ ested Visits Authorized [id number] Closed 07/05/2021 07/05/2022 1 1 Outpatient (Routine) - Closed Specialty Diagnoses / Procedures Referred By Contact Refer red To Contact Diagnoses Dyspnea On Exertion Suhail Lemus M.D. [facility] [place] [facility] Procedures Echo Transthoracic (TTE) [address] [place] [phone] Referral ID Status Reason Start Date Expiration Date Visits Requ ested Visits Authorized [id number] Closed 07/05/2021 07/05/2022 1 1 Reason for [...] Expiration Date Visits Requ ested Visits Authorized [id number] Closed 07/03/2021 07/03/2022 1 1 Encounter Details Date Type Department Care Team Description 07/05/2021 Office Visit Department of Family Suhail Lemus Dy spnea On Exertion (Primary Dx); Medicine, Roni Szymanski M.D. Morbid Obesity (HCC); Clinic, in [place] [address] Frequen cy Urinary; [place], [place] Bl Pain Low Back Unspecified; [address] [place] [address] [place] [phone] Social History Tobacco Use Types Packs/Day [...] For the complete report, see the Order-L evTeikon Documents. Narrative 10/26/2021 2:14 PM CDT For [...] For the complete report, see the Order-L evTeikon Documents. Final Impressions 1. Extremely challenging image [...] Documents. Suhail Lemus M.D. CV ECHO PROCEDURES T4 (Thyroxine), [...] supplements. ??If the result does not [facility] clinical observations, repeat testing after patient refrains fr om the use of supplements for at least 12 hours. Specimen Anatomical Collection Method Collection Time Receive d Time (Source) Location / / Volume Laterality Blood 07/05/2021 5:23 PM 2 5:25 CDT PM CDT Suhail Lemus M.D. LAB BLOOD ADD-ON Performing Organization Address City/State/ZIP Code Phon e Number [facility]- [facility] [place] [address] [address] [place] [address] System in [place] [address] [address] NT-Pro B-Type Natriuretic Peptide [...] supplements. ??If the result does not [facility] clinical observations, repeat testing after patient refrains fr om the use of supplements for at least 12 hours. Specimen Anatomical Collection Method Collection Time Receive d Time (Source) Location / / Volume Laterality Blood (Blood, 07/05/2021 5:23 PM 07/06/19 5:25 Venous) CDT PM CDT Suhail Lemus M.D. LAB BLOOD ADD-ON Performing Organization Address City/[facility]/ZIP Code Phon e Number [address] [address] [place] [address] (ABNORMAL) CRP (C-Reactive Protein) (07/05/2021 5:23 PM CDT) athologist Signature C-Reactive 11.4 (H) <=8.0 mg/L 07/05/2021 [facility] Protein (CRP), 5:44 PM CDT P Specimen Anatomical Collection Method Collection Time Receive d Time (Source) Location / / Volume Laterality Blood (Blood, 07/05/2021 5:23 PM 07/06/19 22 5:25 Venous) CDT PM CDT Suhail Lemus M.D. LAB BLOOD ADD-ON Performing Organization Address City/[facility]/ZIP Code Phon e Number [address] [address] [place] [address] (ABNORMAL) CBC with Differential, Blood (07/05/2021 5:23 PM CDT) [facility] Method Time Signature Hemoglobin 14.4 11.6 - [...] City/State/ZIP Code Phon e Number [facility]- [address] [place] [address] [place] [address] System in [place] [address] (ABNORMAL) Thyroid Function Keller (07/05/2021 5:23 PM CDT) athologist Signature TSH, Sensitive 4.3 (H) 0.3 - 4.2 07/05/2021 CNFL mIU/L 7:00 PM CDT Specimen Anatomical Collection Method Collection Time Receive d Time (Source) Location / / Volume Laterality Blood (Blood, 07/05/2021 5:23 PM 07/06/19 5:25 Venous) CDT PM CDT Suhail Lemus M.D. LAB BLOOD ADD-ON Performing Organization Address City/State/ZIP Code Phon e Number [facility]- [address] [place] [address] [address] [place] [address] [place] [address] (ABNORMAL) Comprehensive Metabolic Panel (07/05/2021 5:23 PM [...] CDT eGFR-Black/Afric 85 >=60 07/05/2021 CNFL an Luxembourger mL/min/BSA 5:44 PM CDT Comment: ----ADDITIONAL INFORMATION---- [...] LAB BLOOD ADD-ON Performing Organization Address City/[facility] Phon e Number [phone] [place] [address] [place] [address] [address] Thyroperoxidase (TPO) Antibodies (07/05/2021 5:22 PM CDT) [facility] gist Method Time Signature Thyroperoxidase Ab, 9.1 <34.0 07/06/2021 ECLR S IU/mL 3:47 PM CDT Specimen Anatomical Collection Method Collection Time Receive d Time (Source) Location / / Volume Laterality Blood 07/05/2021 5:22 PM 3:02 CDT PM CDT Suhail Lemus M.D. LAB BLOOD ADD-ON Performing Organization Address City/State/ZIP Code Phon e Number [facility]- [address] [place], [place] [address] [facility] [place] [address] System in [place] [address] [place] [address] DX Chest AP or PA and Lateral [...] d isease. Suhail THOMAS DIAGNOSTIC IMAGING PROCE [facility] Microscopic Manual (07/05/2021 4:48 PM CDT) P athologist Signature White Blood 4-10 /hpf 07/05/2021 [...] Organization Address City/State/ZIP Code Phon e Number [address] [address] [place] [address] [address] (ABNORMAL) Urinalysis with Microscopic if Indicated (07/05/2021 4:48 PM CDT) athologist Signature Source Urine, 07/05/2021 CNFL Urine, [...] 8.0 07/05/2021 4:52 PM CDT CNFL Specific [place] 1.015 1.001 - 1.035 07/05/2021 4:52 PM [...] City/State/ZIP Code Phon e Number [facility]- [address] [place] [address] [place] [address] System [address] documented in this encounter Visit Diagnoses Diagnosis Dyspnea On Exertion - Primary Morbid Obesity (HCC) Frequency Urinary Pain Low Back Unspecified Apnea Sleep Obstructive Dyspnea On Exertion Dyspnea On Exertion documented in this encounter Additional Health Concerns Assessment Noted Time PHQ-9 Depression Total Score: 3 05/13/2013 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 PCP - General Family Medicine 09/19/[address] [place] [phone] documented as of this encounter
--- OUTSIDE RECORDS SUMMARY | 2022-01-17 20:14 | XMS_ITS | Clinical Summary ---
:1945 Author Organization [facility] Address [address] [place] [address] Care Team Providers Name Role Phone Suhail Lemus M.D. Primary Care Provider Source Comments Patient records contain information from all sites at [facility]. For routine questions regarding patient records, call [phone] during business hours, M-F 8:00 AM - 5:00 PM Central Time. Record requests for emergency care only can be directed to [phone] at any time.[facility] Allergies No known active allergies Medications Medication [...] Apply to affected 30 g 0 09/16/19 22 Active 0.1 % cream area 1-2 times daily as needed. Avoid face and groin. potassium chloride TAKE 1 TABLET BY 30 tablet 0 11/22/202109/2022 Active (KLORCON/K-TAB) 10 mEq ER MOUTH DAILY; DO NOT tablet CRUSH OR CHEW furosemide (LASIX) 20 mg Take 1 tablet (20 30 tablet 1 022 Active tablet mg total) by mouth daily. losartan (COZAAR) 50 mg TAKE 1 TABLET [...] Encounters Date Type Specialty Care Team Description 01/03/2022 Emergency Emergency Medicine Conchita Qureshi Wr ist Initial Left (Primary Dx); Guzman Murillo, Pain Low Back U nspecified; C.N.P. History Of Fall ing 11/22/2021 Office Visit Family Julien Lemus Hypertension Essential Primary (Primary Dx); Suhail Morbid Obesity (HCC); Vinicius Leukocytosis 11/22/2021 Orders Only Suhail Hernandez M.D. 11/22/2021 Clinical Family Javed Jiménez M.D. 10/30/2021 Hospital Encounter Laboratory Medicine Dillon Nance pertension Essential Primary; Kalie Zelaya, Impaired Fastin g Glucose; INTERNAL COMMUNICATIONS MANAGER, Screening Lipid C.N.P., D.N.P. 10/30/2021 Clinical Family Medicine Mariah, Communication Vinicius aJng 10/26/2021 Hospital Encounter Cardiovascular Disease Mariah, Dyspnea On Exertion Alisha Jang. 10/24/2021 Nurse Triage Family Medicine Lauren Quesada [...] Sign Reading Time Taken Comments Blood Pressure 180/85 01/03/2022 11:11 AM CDT Pulse 78 01/03/2022 11:06 AM CDT Temperature 36.8 ??C (98.2 ??F) 01/03/2022 11:06 AM CDT Respiratory Rate 16 01/03/2022 11:06 AM CDT Oxygen Saturation 98% 01/03/2022 11:06 AM CDT Inhaled Oxygen Concentration - - Weight 127 kg (279 lb 15.8 oz) 01/03/2022 10:50 AM CDT Height 158.5 cm (5' 2.4) 2021 7:56 AM CDT Body Mass Index 50.55 2021 7:56 AM CDT Plan of Treatment Health Maintenance Due Date Last Done Comments Zoster Vaccines (1 of 2) 09/16/1995 Pneumococcal [...] 10/30/2022 10/30/2021, 07/05/2021, 09/12/2020, Additional history exists Visit: Chronic Disease, age 18+ 11/22/2022 11/22/2021 DTaP,Tdap,and Td Vaccines (3 - Td 10/01/2027 09/30/2017, or Tdap) Hepatitis C Screening Completed 09/30/2017 Cologuard Discontinued 09/20/2020 Colorectal Cancer Screening Discontinued Depression Screening (Annual Completed 07/05/2021 PHQ-2) Fall Risk Screen (Annual) Completed 2021 CT Colonography Discontinued Colonoscopy Discontinued FIT Discontinued Procedures Procedure Name Priority Date/Time Associated Comments Diagnosis DX LUMBAR SPINE RAD - Semiurgent 01/03/2022 11:42 Resu lts for this 2-3 VIEWS (Fast; most ED AM CDT procedure are in patients; some the results inpatients) section. DX HAND LEFT 3+ RAD - Semiurgent 01/03/2022 11:40 Resu lts for this VIEWS AND WRIST (Fast; most ED AM CDT procedure are in LEFT 3+ VIEWS patients; some the results inpatients) section. LIPID PANEL, S Routine 10/30/2021 9:29 Screening Lipid Results for this AM CDT procedure are i n the results section. CREATININE WITH Routine 10/30/2021 9:29 Hypertension Results f or this EGFR, S/P AM CDT Essential Primary procedure are in the results section. POTASSIUM, S/P Routine 10/30/2021 9:29 Hypertension Results fo r this AM CDT Essential Primary procedure are in the results section. SODIUM, S/P Routine 10/30/2021 9:29 Hypertension Results for this AM CDT Essential Primary procedure are in the results section. HEMOGLOBIN A1C, B Routine 10/30/2021 9:27 Impaired Fasting Res ults for this AM CDT Glucose procedure are i n the results section. (TTE) 2D ECHO Routine 10/26/2021 10:47 Dyspnea On Exertion Res ults for this DOPPLER COLOR AM CDT procedure are in the results section. from Last 3 Months Results DX Lumbar Spine 2-3 Views (01/03/2022 11:42 AM CDT) Anatomical Region Laterality Modality Lumbar Spine, Musculoskeletal RST LOS, Neuroradiology N/A Digital Radiography ARZ LOS, Muskuloskeletal FLA LOS Specimen (Source) Anatomical Collection Method Collection Time Re ceived Time Location / / Volume Laterality 01/03/2022 11:44 AM CDT Impressions 01/03/2022 11:44 AM CDT Lumbar degenerative disc disease and facet arthropathy. Low-grade lumbar subluxations. Arterial calcifications. Narrative 01/03/2022 11:44 AM CDT EXAM: ??DX LUMBAR SPINE 2-3 VIEWS Procedure Note Ta Garcia M.D. - 01/03/2022Format ting of this note might be different from the original. EXAM: DX LUMBAR SPINE 2-3 VIEWS IMPRESSION: Lumbar degenerative disc disease and fac et arthropathy. Low-grade lumbar subluxations. Arterial calcifications. Guzman Qureshi C.N.P. IMCaro DIAGNOSTIC IMAGING PROCE [place] DX Hand Left 3+ Views and Wrist Left 3+ Views (01/03/2022 11:40 AM CDT) Anatomical Region Laterality Modality Upper Extremity, Hand, Musculoskeletal RST LOS, Left Digital Radiography Musculoskeletal ARZ LOS, Muskuloskeletal FLA LOS Specimen (Source) Anatomical Collection Method Collection Time Re ceived Time Location / / Volume Laterality 01/03/2022 11:42 AM CDT Impressions 01/03/2022 11:44 AM CDT No evidence of acute fracture or subluxation. 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 Positive ulnar variance. Narrative 01/03/2022 11:44 AM CDT EXAM: ??DX HAND LEFT 3+ VIEWS AND WRIST LEFT 3+ VIEWS Procedure Note Ta Garcia M.D. - 01/03/2022Format ting of this note might be different from the original. EXAM: DX HAND LEFT 3+ VIEWS AND WRIST LE FT 3+ VIEWS IMPRESSION: No evidence of acute fracture or subluxa tion. 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 Positive ulnar variance. Guzman SousaNSariahPSariah IMG DIAGNOSTIC IMAGING PROCE [place] (ABNORMAL) Lipid Panel (10/30/2021 9:29 AM CDT) [...] Organization Address City/State/ZIP Code Phon e Number [place] [address] [place] [address] [place] [address] [address] [place] [address] [address] Sodium (10/30/2021 9:29 AM CDT) athologist Signature Sodium, P 138 135 - 145 10/30/2021 9:56 CNFL mmol/L AM CDT Specimen Anatomical Collection Method Collection Time Receive d Time (Source) Location / / Volume Laterality Blood (Blood, 10/30/2021 9:29 AM 10/31/19 9:29 Venous) CDT AM CDT Merry Brumfield APRNNSariahPSariah, D.N.P. LAB BLOOD ADD-ON Performing Organization Address City/[facility]/ZIP Code Phon e Number [place] [address] [place] [address] [place] [address] System in [place] [address] [address] Potassium (10/30/2021 9:29 AM CDT) athologist Signature Potassium, P 4.0 3.6 - 5.2 10/30/2021 CNFL mmol/L 9:56 AM CDT Specimen Anatomical Collection Method Collection Time Receive d Time (Source) Location / / Volume Laterality Blood (Blood, 10/30/2021 9:29 AM 10/31/19 9:29 Venous) CDT AM CDT Merry Brumfield APRNN.P., D.N.P. LAB BLOOD ADD-ON Performing Organization Address City/State/ZIP Code Phon e Number [address] [place] [address] [place] [address] [address] [place] [address] [address] (ABNORMAL) Creatinine with Estimated GFR (10/30/2021 9:29 AM CDT) athologist Signature Creatinine 0.98 0.59 - 10/30/2021 CNFL 1.04 mg/dL 9:56 AM CDT eGFR-Black/Afric 65 >=60 10/30/2021 CNFL an Syrian mL/min/BSA 9:56 AM CDT Comment: ----ADDITIONAL INFORMATION---- Estimated GFR calculated using the 2009 CKD_EPI creatinine equation. eGFR Non-Black/ 56 (L) >=60 mL/min/BSA 10/30/2021 9:56 AM CDT CNFL [place] Comment: ----ADDITIONAL INFORMATION---- Estimated GFR calculated using the 2009 CKD_EPI creatinine equation. Specimen Anatomical Collection Method Collection Time Receive d Time (Source) Location / / Volume Laterality Blood (Blood, 10/30/2021 9:29 AM 10/31/19 9:29 Venous) CDT AM CDT Brayan Brumfield APRN.N.P., D.N.P. LAB BLOOD ADD-ON Performing Organization Address [facility] Phon e Number [address] [address] [place] [address] (ABNORMAL) Hemoglobin A1c (10/30/2021 9:27 AM [...] D.N.P. LAB BLOOD ADD-ON Performing Organization Address [facility] Phon e Number [address] [address] [place] [address] System in [place] [address] [address] (TTE) 2D ECHO DOPPLER COLOR (10/26/2021 10:47 [...] e / Group Dates MEDICARE MEDICARE A [id number] 2010-Prese [address] [place] [address] FOR FOR [id number] 2004-Pres [phone] [address] Indemnity LIFE LIFE ent [id number] [place] [phone] [facility] (Home) [place] [phone] Care Teams Freight Car Cleaner Relationship Specialty Start Date End Date Suhail Lemus M.D. PCP - General Family Medicine 09/19/[address] [place] [phone]
--- OUTSIDE RECORDS SUMMARY | 2022-01-17 20:14 | XMS_ITS | Encounter Summary ---
:1945 Author Organization [facility] Address [address] [place] [address] Care Team Providers Name Role Phone Suhail Lemus M.D. Primary Care Provider Reason for Visit Reason Comments Fall Presents with left arm and w rist pain after she tripped and fell on the sidewalk in downtown [place] Encounter Details Date Type Department Care Team Description 01/03/2022 Emergency [place] [facility] Guzman Qureshi S prain Wrist Initial Left (Primary Dx); Department C.N.P. Pain Low Back Unspecified; [address] [place] [address] [address] and History Of Falling [place] Maurisio Bhatt [phone] [place] [phone] (Wo rk) Social History Tobacco Use Types [...] 15.8 oz) 01/03/2022 10:50 AM CDT Height - - Body Mass Index 50.55 2021 7:56 AM CDT documented in this encounter Discharge Instructions Discharge InstructionsGuzman Qureshi C.N.P. - 01/03/2022 11:57 AM CDT Take your Aleve every 12 hours as discussed. Ice to anything that hurts. If you have continued pain it is okay to use 2 extra-strength Tylenol every 8 hours. Follow-up with primary care in 1 week if hecontinued to have pain. Wear the left wrist brace until your pain free. Thank you for utilizing [facility] [place] [facility] for your care! AttachmentsThe following attachments cannot be sent through Care Everywhere. Acute Back Pain Adult (Ethiopian)Wrist Sprain Adult (Ethiopian)documented in this encounter Medications at Time of [...] into each nostril mcg/actuation nasal daily. spray furosemide (LASIX) 20 mg Take 1 tablet (20 mg 30 tablet 1 0 11/22/2021 tablet total) by mouth daily. losartan (COZAAR) 50 mg TAKE 1 TABLET BY 90 tablet 3 202111/22/2022 tablet MOUTH DAILY losartan-hydroCHLOROthia Take 1 tablet by 90 tablet 3 09/1509/15/2022 zide (HYZAAR) 50-12.5 mg mouth daily. per tablet naproxen sodium 220 mg Take 1 capsule by 0 2011 capsule mouth. nystatin (NYSTOP) Apply 1 strip 0 04/23/2019 100,000 unit/gram powder topically. potassium chloride TAKE 1 TABLET BY 30 tablet 0 11/22/2021 11/22/2022 (KLORCON/K-TAB) 10 mEq MOUTH DAILY; DO NOT ER tablet CRUSH OR CHEW ProAir HFA 90 INHALE 2 PUFFS EVERY 54 g 3 06/09/2020 mcg/actuation inhaler 4 HOURS NEEDED FOR WHEEZING OR SHORTNESS OF BREATH triamcinolone (KENALOG) Apply to affected 30 g 0 09/15 0.1 % cream area 1-2 times daily as needed. Avoid face and groin. documented as of this encounter ED Notes Guzman Qureshi C.N.P. - 01/03/2022 11:03 AM CDT Images from the original note were not included. CHIEF COMPLAINT/REASON FOR VISIT Fall (Presents with left arm and wrist pain after she tripped and fell on the sidewalk in [place]) HISTORY OF PRESENT ILLNESS Kristen Pederson is a 76 y.o. 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 Patient presents to the emergency Department with complaints of fall with wrist and back pain Patient who is primarily right-hand dominant presents to the emergency department after a fall. Patient states she got out of her truck to go to the break room, she was walking on the sidewalk when shetripped and fell. She thinks there was a big crack in the sidewalk. She landed towards the left on an outstretched hand. She is complaining of primarily left wrist and left hand pain. There is some bruising at the palmar aspect of the left hand. Patient has difficulty with pronation and supination of that hand without pain. Patient is also complaining of generalized lumbar back pain. And also has some paraspinous pain. Patient denies any paresthesias or weakness or shooting pain down her leg. Patient was assisted to standing by 2 females, and she is been walking since that time. History provided by: Patient print support specialist needed/used: no REVIEW OF SYSTEMS Constitutional: Negative for chills, diaphoresis, fatigue and fever. HENT: Negative for sinus pressure and sore throat. Respiratory: Negative for cough, chest tightness and shortness of breath. Cardiovascular: Negative for chest pain. Gastrointestinal: Negative for abdominal pain, constipation, diarrhea, nausea and vomiting. Genitourinary: Negative for dysuria, frequency and urgency. Musculoskeletal: Positive for back pain and extremity pain. Negative for arthralgias and myalgias. Skin: Negative for rash. Neurological: Negative for dizziness, weakness and headaches. Hematological: Negative for adenopathy. Does not bruise/bleed easily. All other systems reviewed and are negative. Allergies Reviewed in medical record Current Medications Reviewed in Medical Record. 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 Nonexudative Age-Related Macular Degeneration Unspecified Stage Bilateral Age Related Nuclear Cataract Bilateral Membrane Macula Epiretinal Left History Of Falling Allergy Seasonal Surgical Past Surgical History: Procedure Laterality Date RETINA INJECTIONS Family Reviewed in Medical Record Social History Social History Tobacco Use Smoking status: Former Smokeless tobacco: Never Substance Use Topics Alcohol use: No Social History Substance and Sexual Activity Drug Use No OBJECTIVE Initial Vital Signs / Weights Initial Vitals Temperature Pulse Rate Heart Rate Resp Rate Blood Pressure SpO2 01/03/22 1106 01/03/22 1106 -- 01/03/22 1106 01/03/22 1111 01/03/22 1106 36.8 ??C 78 16 (!) 180/85 98 % Pain Score 01/03/22 1111 5 - Moderate pain Wt Readings from Last 3 Encounters: 01/03/22 127 kg 11/22/21 127 kg 09/15/21 128 kg PHYSICAL EXAMINATION Constitutional: Nursing note and vitals reviewed. No distress. HENT: Nose: No nasal discharge. Mouth/Throat: Oropharynx is clear and moist. Mucous membranes are moist. No tonsillar exudate. Eyes: Conjunctivae are normal. Pupils are equal, round, and reactive to light. Neck: Neck supple. Cardiovascular: Normal rate, regular rhythm, S1 normal, S2 normal and normal heart sounds. Pulses are strong and palpable. Capillary refill: takes less than 3 seconds Pulmonary/Chest: Effort normal and breath sounds normal. There is normal air entry. No respiratory distress. Abdominal: There is no abdominal tenderness. There is no rebound and no guarding. Musculoskeletal: General: Normal range of motion. Cervical back: Normal range of motion and neck supple. Comments: Mild swelling and early bruising to the palmar aspect of the left hand, wrist pain with palpation as well as pronation and supination. Radial pulses strong. Capillary refill is brisk distal to the injury. Hand is well perfused. Lymphadenopathy: She has no cervical adenopathy. Neurological: Alert and oriented to person, place, and time. Skin: Skin is warm, dry and intact. Psychiatric: She has a normal mood and affect. DIAGNOSTICS Radiology DX Lumbar Spine 2-3 Views Final Result Lumbar degenerative disc disease and facet arthropathy. Low-grade lumbar subluxations. Arterial calcifications. DX Hand Left 3+ Views and Wrist Left 3+ Views Final Result No evidence of acute fracture or subluxation. 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 Positive ulnar variance. Procedures None See separate procedure note. ED COURSE ED Course as of 01/03/22 1306 Wed Jan 03, 2022 1054 I performed my initial evaluation of the patient. We discussed Emergency Department course including testing, treatment, and potential disposition based on findings. 1148 LS spine without acute fractures. 1148 No evidence of acute fracture or subluxation. 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 Positive ulnar variance [address] velcro wrist splint and plan to discharge 1155 I discussed the plan for discharge with the patient, and patient/family is agreeable. I discussed with patient the utility, limitations, and findings of the exam/interventions/studies done during this visit as well as the list of differential diagnosis. Patient understands provisional nature of this diagnosis and need for follow up. We discussed the plan of care, including supportive cares. We also discussed symptoms to monitor and symptoms that should prompt them to return for re-evaluation including new or worsening symptoms. All questions and concerns addressed. Patient to be discharged by RN. Final Diagnoses: as of 01/03/22 1306 Sprain Wrist Initial Left Pain Low Back Unspecified History Of Falling INTERVENTIONS Medications ibuprofen tablet 600 mg (ADVIL,MOTRIN) (600 mg oral Given 01/03/22 1137) MEDICAL DECISION MAKING IMPRESSION AND PLAN Patient presents to the emergency department with fall. Patient is complaining of left hand wrist pain and lumbar back pain. Differential diagnosis for extremity trauma includes but is not limited to; soft tissue contusion, strain, sprain, fracture, compartment syndrome or hematoma. The following x-rays were obtained left wrist and hand as well as lumbar spine, And were negative for acute fracture. The patients pain is not out of proportion to the exam/injury, cms is intact with brisk capillary refill and pulses are present I do not feel this is compartment syndrome. Care while in the ED included ibuprofen, ice and the patients pain improved and were discharged. Redflag symptoms were also reviewed with the patient that should return them to the ED including but not limited to; worsening pain, swelling, cool extremity, delayed capillary refill, signs of compartment syndrome. I reviewed previous medical records including radiology images/report and documentation from previous visits. I personally reviewed the radiology image(s) and reviewed the radiology report(s). The Radiology exam interpretation(s) is/are normal, with the following comments: Chronic changes no acute findings.. DIAGNOSIS Final diagnoses: [S63.502A] Sprain Wrist Initial Left [M54.50] Pain Low Back Unspecified [Z91.81] History Of Falling DISPOSITION Home or Self Care DISCHARGE/TRANSFER VITAL SIGNS Vitals: 01/03/22 1111 BP: (!) 180/85 Pulse: Resp: Temp: SpO2: ED DISCHARGE MEDS ED Prescriptions None FOLLOW UP Guzman Qureshi, DNP, MEDICAL AFFAIRS SPECIALIST, DISPATCH OFFICER-C, AGACNP-BC, ENP-C Emergency Medicine Guzman Qureshi, C.N.P. 01/03/22 1307 documented in this encounter Plan of Treatment [...] VIEWS patients; some the results inpatients) section. documented in this encounter Results DX Lumbar Spine 2-3 Views (01/03/2022 [...] arthropathy. Low-grade lumbar subluxations. Arterial calcifications. Guzman SousaNSariahPSariah IMG DIAGNOSTIC IMAGING PROCE DURMAAME DX Hand Left 3+ Views and Wrist [...] variance. Guzman SousaNSariahPSariah IMG DIAGNOSTIC IMAGING PROCE DURES documented in this encounter Visit Diagnoses Diagnosis Sprain Wrist Initial Left - Primary Pain Low Back Unspecified History Of Falling documented in this encounter Administered Medications Inactive Administered Medications - up to 3 most recent administrations Medication Order MAR Action Action Date Dose Rate Site ibuprofen tablet 600 mg Given 01/03/2022 11:37 AM CDT 600 mg (ADVIL,MOTRIN) 600 mg, oral, Once, On Sat01/03/22 at 1112, For 1 dose documented in this encounter Active and Recently Administered Medications Times are shown in CDT. Scheduled Medication Order 01/01/2022 01/02/2022 01/03/2022 ibuprofen tablet 600 mg (ADVIL,MOTRIN) (COMPLETED) 1137 (Given - Provider: Ping Moore R.N.) 600 mg, oral, Once, On Sat01/03/22 at 1112, For 1 dose documented in this encounter Additional Health Concerns Assessment Noted Time PHQ-9 Depression Total Score: 3 05/13/2013 2:06 PM SUPERVISOR MULTIFOCAL LENS documented as of this encounter Care Teams Ammonia Nitrate Operator Relationship Specialty Start Date End Date Suhail Lemus M.D. PCP - General Family Medicine 09/19/[address] [place] [phone] documented as of this encounter
--- OUTSIDE RECORDS SUMMARY | 2022-01-17 20:14 | XMS_ITS | Encounter Summary ---
:1945 Author Organization [facility] Address [address] [place] [address] Care Team Providers Name Role Phone Suhail Lemus M.D. Primary Care Provider Encounter Details Date Type Department Care Team Description 11/22/2021 Clinical Communication Department of Damir Hwang, Medicine, [facility], in [address] [phone] Social History Tobacco Use Types Packs/Day Years [...] Total Score: 3 05/13/2013 2:06 PM CHEMICAL EDUCATOR documented as of this encounter Care Teams Slab Stripper Relationship Specialty Start Date End Date Suhail Lemus M.D. PCP - General Family Medicine 09/19/[address] [place] [phone] documented as of this encounter
--- OUTSIDE RECORDS SUMMARY | 2022-01-17 20:14 | XMS_ITS | Encounter Summary ---
:1945 Author Organization [facility] Address [address] [place] [address] Care Team Providers Name Role Phone Suhail Lemus M.D. Primary Care Provider Reason for Referral Specialty Diagnoses / Procedures Referred By Contact Refer red To Contact Suhail Lemus M. D. [address] [phone] Referral ID Status Reason Start Date Expiration Date Visits Requ ested Visits Authorized Encounter Details Date Type Department Care Team Description 08/02/[address] [facility] PCP [facility] Suhail Lemus M.D. [address] [place] [phone] (Wo rk) Social History Tobacco Use [...] Depression Total Score: 3 05/13/2013 2:06 PM MOTOR AND CHASSIS INSPECTOR documented as of this encounter Care Teams Materials And Corrosion Engineer Relationship Specialty Start Date End Date Suhail Lemus M.D. PCP - General Family Medicine 09/19/[address] [place] [phone] documented as of this encounter
--- OUTSIDE RECORDS SUMMARY | 2022-01-17 20:14 | XMS_ITS | Encounter Summary ---
:1945 Author Organization [facility] Address [address] [place] [address] Care Team Providers Name Role Phone Suhail Lemus M.D. Primary Care Provider Encounter Details Date Type Department Care Team Description 11/22/2020 Orders Only [facility] Suhail Lemus, Screening Mammogram Breast Cancer; M.DSariah Deficiency Estrogen Post Menopausal [address] [place] [phone] Social History Tobacco Use Types Packs/Day Years [...] Total Score: 3 05/13/2013 2:06 PM BUSINESS ANALYST [employer] documented as of this encounter Care Teams Sap Senior Developer Relationship Specialty Start Date End Date Suhail Lemus M.D. PCP - General Family Medicine 09/19/[address] [place] [phone] documented as of this encounter
--- OUTSIDE RECORDS SUMMARY | 2022-01-17 20:14 | XMS_ITS | Encounter Summary ---
:1945 Author Organization [facility] Address [address] [place] [address] Care Team Providers Name Role Phone Suhail Lemus M.D. Primary Care Provider Reason for Referral Outpatient (Routine) - Authorized Specialty Diagnoses / Procedures Referred By Contact Refer red To Contact Emergency Medicine Diagnoses Insect Bite (Includes Tick) Nonvenomous Left Front Wall Thorax Initial [facility] [address] [place] [phone] Referral ID Status Reason Start Date Expiration Date Visits V isits Requested Authorized [id number] Authorized 08/16/2021 08/16/2022 1 1 Reason for Visit Reason Comments Insect Bite Bug bite-unk type of bug/tic k, left breast-since bite has noted neck stiffness when turning side to side-no fever or chills Encounter Details Date Type Department Care Team Description 08/16/2021 Emergency [place] [facility] Kika Landis I nsect Bite (Includes Tick) Nonvenomous Left Front Wall Thorax Initial (Primary Dx); Norma Murillo M.D. Strain Neck Initial [id number] [place] [address] [place] [address] [phone] Social History Tobacco Use Types Packs/Day Years [...] documented in this encounter Discharge Instructions Discharge InstructionsConKika estrada M.D. - 08/16/2021 5:59 PM CDT [...] sent through Care Everywhere.Tick Bite Information Adult (Djiboutian)Cervical Strain and Sprain With [facility]hab[facility] (Djiboutian)documented in this encounter Medications at Time of [...] Landis M.D. - 08/16/2021 5:50 PM CDT [facility] ENCOUNTER SUBJECTIVE CHIEF COMPLAINT/REASON FOR [...] stiffness, visual changes. History provided by: Patient aerial photograph interpreter needed/used: no Past Medical History: Diagnosis Date [...] doubt meningitis despite the concern given by quality cloth tester. Plan for discharge. Vitals stable throughout ED [...] Depression Total Score: 3 05/13/2013 2:06 PM SECURITY SYSTEM INSTALLER documented as of this encounter Care Teams Drug Room Clerk Relationship Specialty Start Date End Date Suhail Lemus M.D. PCP - General Family Medicine 09/19/[address] [place] [phone] documented as of this encounter
--- OUTSIDE RECORDS SUMMARY | 2022-01-17 20:14 | XMS_ITS | Encounter Summary ---
:1945 Author Organization [facility] Address [address] [place] [address] Care Team Providers Name Role Phone Suhail Lemus M.D. Primary Care Provider Reason for Visit Reason Comments Med Refill Encounter Details Date Type Department Care Team Description 2020 Refill Department of Family Medicine, Ally Wang, Med Refill [facility], in [place] [address] [phone] Social History Tobacco Use [...] Depression Total Score: 3 05/13/2013 2:06 PM SENIOR ACCOUNT MANAGER documented as of this encounter Care Teams Straight Tooth Gear Generator Operator Relationship Specialty Start Date End Date Suhail Lemus M.D. PCP - General Family Medicine 09/19/[address] [place] [phone] documented as of this encounter
--- OUTSIDE RECORDS SUMMARY | 2022-01-17 20:14 | XMS_ITS | Encounter Summary ---
:[address] [facility] Address [address] [place] [address] Care Team Providers Name Role Phone Suhail Lemus M.D. Primary Care Provider Encounter Details Date Type Department Care Team Description 09/14/2020 Hospital Encounter Department of [facility] Medicine nayeli PALMER M.D. [address] [address] [place], [place] [phone] (W ork) [phone] Social History Tobacco Use Types Packs/Day Years [...] Panel, PCR, Feces (09/14/2020 10:00 AM CDT) [facility] gist Method Time Signature Specimen Source STOOL 09/14/2020 [...] using the FDA-cl eared FilmArray GI Panel ([employer] Specimen Anatomical Collection Method Collection Time Receive d Time (Source) Location / / Volume Laterality Stool (Stool) 09/14/2020 10:00 09/14/2020 AM CDT 12:38 PM CDT [facility] III, M.D. LAB MICROBIOLOGY - GENE [facility] ORDERABLES Performing Organization Address City/State/ZIP Code Phon e Number [facility]- [address] [place] [address] [place], [place] [address] [facility] [address] System in [address] [place] documented in this encounter Visit Diagnoses Diagnosis Diarrhea documented in this encounter Additional Health Concerns Assessment Noted Time PHQ-9 Depression Total Score: 3 05/13/2013 2:06 PM CARE TEAM COORDINATOR SCHEDULER documented as of this encounter Care Teams Licensed Journeyman Electrician Relationship Specialty Start Date End Date Suhail Lemus M.D. PCP - General Family Medicine 09/19/[address] [place] [phone] documented as of this encounter
--- OUTSIDE RECORDS SUMMARY | 2022-01-17 20:14 | XMS_ITS | Encounter Summary ---
:1945 Author Organization [facility] Address [address] [place] [address] Care Team Providers Name Role Phone Suhail Lemus M.D. Primary Care Provider Encounter Details Date Type Department Care Team Description 11/22/2021 Orders Only Department of [facility] Rajinder Lemus M.D. [address], [facility] [phone] [place] [address] [place], [place] [phone] Social History Tobacco Use Types Packs/Day Years [...] Depression Total Score: 3 05/13/2013 2:06 PM WALLPAPER EMBOSSER HELPER documented as of this encounter Care Teams Pressroom Worker Relationship Specialty Start Date End Date Suhail Lemus M.D. PCP - General Family Medicine 09/19/[address] [place] [phone] documented as of this encounter
--- OUTSIDE RECORDS SUMMARY | 2022-01-17 20:14 | XMS_ITS | Encounter Summary ---
:1945 Author Organization [facility] Address [address] [place] [address] Care Team Providers Name Role Phone Suhail Lemus M.D. Primary Care Provider Reason for Referral Outpatient (Routine) - Closed Specialty Diagnoses / Procedures Referred By Contact Refer red To Contact Diagnoses Dyspnea On Exertion Suhail Lemus M.D. [facility] [place] [facility] Procedures Echo Transthoracic (TTE) [address] [place] [phone] Referral ID Status Reason Start Date Expiration Date Visits Requ ested Visits Authorized [id number] Closed 07/05/2021 07/05/2022 1 1 Reason for Visit Outpatient (Routine) - Closed Specialty Diagnoses / Procedures Referred By Contact Refer red To Contact Diagnoses Dyspnea On Exertion Su[facility]ail Lemus M.D. [facility] Procedures Echo Transthoracic (TTE) [address] [place] [phone] Referral ID Status Reason Start Date Expiration Date Visits Requ ested Visits Authorized [id number] Closed 07/05/2021 07/05/2022 1 1 Encounter Details Date Type Department Care Team Description 10/26/2021 Hospital Encounter Department of Mariah, Dyspnea On Exertion Radiology in Alisha Luz [address] [place] [phone] [place] [phone] Social History Tobacco Use Types Packs/Day Years [...] Depression Total Score: 3 05/13/2013 2:06 PM LINE SERVER documented as of this encounter Care Teams Business Controller Relationship Specialty Start Date End Date Suhail Lemus M.D. PCP - General Family Medicine 09/19/[address] [place] [phone] documented as of this encounter
--- OUTSIDE RECORDS SUMMARY | 2022-01-17 20:15 | XMS_ITS | Encounter Summary ---
:1945 Author Organization [facility] Address [address] [place] [address] Care Team Providers Name Role Phone Suhail Lemus M.D. 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 [address] [place] [address] Referral ID Status Reason Start Date Expiration Date Visits Requ ested Visits Authorized [id number] Closed 10/09/2019 10/08/2020 1 1 Encounter Details Date Type Department Care Team Description 10/09/2019 Procedure visit Department of Dandy Quigley Ophthalmology in [place] M.D. Retinal Vein [place], [place] [address] Occlusion With [address] [place], [place] [address] (Primary Dx) [phone] Social History Tobacco Use Types Packs/Day Years Used Date Smoking Tobacco: Never Smokeless Tobacco: Never Alcohol Use Standard Drinks/Week Comments No 0 (1 standard drink = 0.6 oz pure alcoho l) Sex Assigned at Date Recorded Not on file documented as of this encounter Progress Notes Tee Quigley M.D. - 10/09/2019 12:30 PM CDT Kristen [...] 1.25 mg bevacizumab intravitreal injecti on (AVASTIN) ??[facility]: 35221-388-76, Lot: [id number], Expi ration date: 11/25/2019 ??Route: intravitreal, Site: Right Eye Hand motion was present. Count fingers w as correct. Tee Quigley M.D. OPHTH CLINIC PROCEDURES documented [...] Depression Total Score: 3 05/13/2013 2:06 PM METAL FABRICATING SHOP HELPER documented as of this encounter Care Teams Revenue Research Analyst Relationship Specialty Start Date End Date Suhail Lemus M.D. PCP - General Family Medicine 09/19/[address] [place] [phone] documented as of this encounter
--- OUTSIDE RECORDS SUMMARY | 2022-01-17 20:15 | XMS_ITS | Encounter Summary ---
:1945 Author Organization [facility] Address [address] [place] [address] Care Team Providers Name Role Phone Suhail Lemus M.D. Primary Care Provider Reason for Visit Reason Comments Med Refill Encounter Details Date Type Department Care Team Description 06/08/2020 Refill Department of Family Medicine, Suhail Ragland M.D. Med Refill [facility], in [place] [address] [address] [place], [place] [address] [phone] Social History Tobacco Use Types Packs/Day Years [...] Depression Total Score: 3 05/13/2013 2:06 PM FLAT LOCKER documented as of this encounter Care Teams Associate Professor Of Biblical Studies Relationship Specialty Start Date End Date Suhail Lemus M.D. PCP - General Family Medicine 09/19/[address] [place] [phone] documented as of this encounter
--- OUTSIDE RECORDS SUMMARY | 2022-01-17 20:15 | XMS_ITS | Encounter Summary ---
:1945 Author Organization [facility] Address [address] [place] [address] Care Team Providers Name Role Phone Suhail Lemus M.D. Primary Care Provider Encounter Details Date Type Department Care Team Description 06/15/2019 Hospital Encounter Department of Delano Pruett Ophthalmology in [place] M.D. [address] [phone] Social History Tobacco Use Types Packs/Day Years [...] 1.25 mg bevacizumab intravitreal injecti on (AVASTIN) ??[facility]: 59193-985-76, Lot: [id number], Expi ration date: 06/22/2019 ??Route: intravitreal, Site: Right Eye Balanced salt solution irrigation to inj ected eye after the injection was Done. Hand motion was present. Count fin gers was correct. Reviewed instructions and patient verbal izes understanding. Notes Patient oriented to outpatient procedure center. ??Reviewed process for scheduled procedure, and pain management including pain scale. Eye Injections, [place] [address] reviewed and given, billing card reviewed and given if needed. ??Understanding assessed by the [facility] h-back. ??Follow-up appointments discussed and return schedule [...] Total Score: 3 05/13/2013 2:06 PM MEDICAL ARTIST documented as of this encounter Care Teams Exploration Geologist Relationship Specialty Start Date End Date Suhail Lemus M.D. PCP - General Family Medicine 09/19/[address] [place] [phone] documented as of this encounter
--- OUTSIDE RECORDS SUMMARY | 2022-01-17 20:15 | XMS_ITS | Encounter Summary ---
:1945 Author Organization [facility] Address [address] [place] [address] Care Team Providers Name Role Phone Suhail Lemus M.D. Primary Care Provider Encounter Details Date Type Department Care Team Description 12/08/2019 Orders Only [facility] Suhail Lemus, Monitoring For M.D. Therapeutic Drug [address] [place] [address] [place] [phone] Social History Tobacco Use Types Packs/Day Years [...] Total Score: 3 05/13/2013 2:06 PM DIRECTOR DIETETICS DEPARTMENT documented as of this encounter Care Teams Glove Pairer Relationship Specialty Start Date End Date Suhail Lemus M.D. PCP - General Family Medicine 09/19/[address] [phone] documented as of this encounter
--- OUTSIDE RECORDS SUMMARY | 2022-01-17 20:15 | XMS_ITS | Encounter Summary ---
:1945 Author Organization [facility] Address [address] [place] [address] Care Team Providers Name Role Phone Suhail Lemus M.D. Primary Care Provider Reason for Visit Reason Comments Appointment Injections Encounter Details Date Type Department Care Team Description 06/22/2019 Clinical Department of [facility], Appointment Communication Ophthalmology in [place] (Injec tions) Dinah [place] M.D. 701 [facility] 701 [facility] [address] [place], [place] [phone] Social History Tobacco Use Types Packs/Day Years Used Date Smoking Tobacco: Never Smokeless Tobacco: Never Alcohol Use Standard Drinks/Week Comments No 0 (1 standard drink = 0.6 oz pure alcoho l) Sex Assigned at Date Recorded Not on file documented as of this encounter Miscellaneous Notes Telephone Encounter - Kendal Crockett C.ODavid - 06/22/2019 8:43 AM CDT Forwarding to [place] injection team Telephone Encounter - Juan C Bhatia - 06/22/2019 8:32 AM CDT Patient was supposed to have an eye injection appointment 06/29/19 in [place]. It has been cancelled but the patient states she was not made aware of the need for this appointment to be cancelled. Please contact her at either: [phone] or [phone]. Thank you documented in this encounter Plan of Treatment Not on filedocumented as of this encounter Visit Diagnoses Not on filedocumented in this encounter Additional Health Concerns Assessment Noted Time PHQ-9 Depression Total Score: 3 05/13/2013 2:06 PM POLICE DISPATCHER documented as of this encounter Care Teams Process Checker Relationship Specialty Start Date End Date Suhail Lemus M.D. PCP - General Family Medicine 09/19/[address] [place] [phone] documented as of this encounter
--- OUTSIDE RECORDS SUMMARY | 2022-01-17 20:15 | XMS_ITS | Encounter Summary ---
:1945 Author Organization [facility] Address [address] [place] [address] Care Team Providers Name Role Phone Suhail Lemus M.D. Primary Care Provider Encounter Details Date Type Department Care Team Description 09/02/2019 Orders Only RST PCP [facility] MNT Suhail Lemus, Screen ing Mammogram [facility] Breast Cancer [id number] [phone] (Wo rk) Social History Tobacco [...] Depression Total Score: 3 05/13/2013 2:06 PM PROGRAM DIRECTOR/TRAFFIC DIRECTOR documented as of this encounter Care Teams Manager Heart Failure Relationship Specialty Start Date End Date Suhail Lemus M.D. PCP - General Family Medicine 09/19/[id number] [phone] documented as of this encounter
--- OUTSIDE RECORDS SUMMARY | 2022-01-17 20:15 | XMS_ITS | Encounter Summary ---
:1945 Author Organization [facility] Address [address] [place] [address] Care Team Providers Name Role Phone Suhail Lemus M.D. Primary Care Provider Encounter Details Date Type Department Care Team Description 02/22/2020 Orders Only [facility] PCP [facility] Suhail Lemus Deficiency Estrogen MPepe Post Menopausal [address] [place] [phone] Social History Tobacco Use Types Packs/Day [...] Total Score: 3 05/13/2013 2:06 PM CREDIT RISK MANAGEMENT DIRECTOR documented as of this encounter Care Teams Water Plant Pump Operator Supervisor Relationship Specialty Start Date End Date Suhail Lemus M.D. PCP - General Family Medicine 09/19/[address] [phone] documented as of this encounter
--- OUTSIDE RECORDS SUMMARY | 2022-01-17 20:15 | XMS_ITS | Encounter Summary ---
:1945 Author Organization [facility] Address [address] [place] [address] Care Team Providers Name Role Phone Suhail Lemus M.D. Primary Care Provider Encounter Details Date Type Department Care Team Description 02/01/2020 Clinical Communication Department of Emilie Fong Ophthalmology in [place], [place] [phone] [address] [facility] (Work) [place] [address] Social History Tobacco Use Types Packs/Day Years [...] she can keep her injection on 02/07, STITCHER Telephone Encounter - Vahid Thompson M.D. - 02/01/2020 12:59 PM SHOE STITCHER No, she should keep scheduled injection. Thank you STITCHER Telephone Encounter - Emilie Fong - 02/01/2020 12:29 PM CST Should I cancel her scheduled held injection in [place] on 02/07 then? STITCHER Telephone Encounter - Vahid Thompson M.D. - 02/01/2020 11:27 AM SHOE STITCHER Unless Dr. Do objects, it is ok to have the patient come on March 25 with the same imaging that was planned for 02/04. Please hold an injection spot. Thank you STITCHER documented in this encounter Plan of Treatment Not on filedocumented as of this encounter Visit Diagnoses Not on filedocumented in this encounter Additional Health Concerns Assessment Noted Time PHQ-9 Depression Total Score: 3 05/13/2013 2:06 PM SHOE STITCHER documented as of this encounter Care Teams Protozoologist Relationship Specialty Start Date End Date Suhail Lemus M.D. PCP - General Family Medicine 09/19/[address] [place] [address] [place] [phone] documented as of this encounter
--- OUTSIDE RECORDS SUMMARY | 2022-01-17 20:15 | XMS_ITS | Encounter Summary ---
:1945 Author Organization [facility] Address [address] [place] [address] Care Team Providers Name Role Phone Suhail Lemus M.D. Primary Care Provider Encounter Details Date Type Department Care Team Description 12/24/2019 Clinical Communication Department of Emilie Fong Ophthalmology in [place], [place] [phone] [address] [facility] (Work) [place] [address] Social History Tobacco Use Types Packs/Day Years Used Date Smoking Tobacco: Never Smokeless Tobacco: Never Alcohol Use Standard Drinks/Week Comments No 0 (1 standard drink = 0.6 oz pure alcoho l) Sex Assigned at Date Recorded Not on file documented as of this encounter Miscellaneous Notes Telephone Encounter - Emilie Fong Chidi - 12/24/2019 2:54 PM CDT 1. Is [...] Depression Total Score: 3 05/13/2013 2:06 PM BOLT THREADER documented as of this encounter Care Teams Chain Puller Relationship Specialty Start Date End Date Suhail Lemus M.D. PCP - General Family Medicine 09/19/[address] [place] [phone] documented as of this encounter
--- OUTSIDE RECORDS SUMMARY | 2022-01-17 20:15 | XMS_ITS | Encounter Summary ---
:1945 Author Organization [facility] Address [address] [place] [address] Care Team Providers Name Role Phone Suhail Lemus M.D. Primary Care Provider Reason for Visit Reason Onset Date Comments Testing For Upper Respiratory Virus Symptoms 03/17/2020 Encounter Details Date Type Department Care Team Description 03/17/2020 [facility], Chirag Hyde Respiratory (Pr imary Professional and P.A.-C. Dx) [facility] in [address] [place] [address] [address] [place], [place] [phone] (Work) [phone] Social History Tobacco Use Types Packs/Day Years Used Date Smoking Tobacco: Never Smokeless Tobacco: Never Alcohol Use Standard Drinks/Week Comments No 0 (1 standard drink = 0.6 oz pure alcoho l) Sex Assigned at Date Recorded Not on file documented as of this encounter Progress Notes Angie Moore R.N. - 03/17/2020 12:31 PM CST Encounter created for symptomatic infectious disease screening with possible COVID, Influenza, and RSV testing. DRETTE OWNER documented in this encounter Plan of Treatment Not on filedocumented as of this encounter Procedures Procedure Name Priority Date/Time Associated Diagnosis Comme nts INFLUENZA A/B AND Routine 03/17/2020 12:40 PM Infection Upper Results for this RSV, PCR, VARIES LAUNDRETTE OWNER Respiratory procedure a re in the results section. SARS CORONAVIRUS-2 Routine 03/17/2020 12:40 PM Infection Upper Results for this RNA, V LAUNDRETTE OWNER Respiratory procedure are i n the results section. documented in this encounter Results Influenza A/B and RSV, PCR, Varies (03/17/2020 12:40 PM LAUNDRETTE OWNER) [facility] [employer] Method Time Signature Influenza A/B Swab, 03/19/2020 DTL and RSV, Nasopharynx 8:00 PM LAUNDRETTE OWNER Source Influenza A, Undetected Undetected 03/19/2020 DTL PCR 8:00 PM LAUNDRETTE OWNER Comment: Influenza A RNA absent. Influenza B, PCR Undetected Undetected 03/19/2020 8:00 PM CS T DTL Comment: Influenza B RNA absent. Respiratory Syncytial Virus, PCR Undetected Undetected 04/2020 8:00 PM LAUNDRETTE OWNER DTL Comment: RSV RNA absent. ----ADDITIONAL INFORMATION---- This test has been modified from the williams katyaacturer's instructions. Its performance characteristics were determi david by [facility] in a manner consistent with CLIA requirements. This test has not been cleared or approved by the U.S. Food and Drug Administration . Specimen Anatomical Collection Method Collection Time Receive d Time (Source) Location / / Volume Laterality Varies 03/17/2020 12:40 03/19/2020 7:24 (Nasopharynx) PM LAUNDRETTE OWNER AM LAUNDRETTE OWNER Chirag Fernández P.A.-C. LAB MICROBIOLOGY - GENERAL O RDERABLES Performing Organization Address City/State/ZIP Code Phon e Number [facility] - [address] [place], [place] [address] [facility] [place] [address] Laboratories-[facility] [address] SARS Coronavirus-2 RNA, V Symptomatic (03/17/2020 12:40 PM LAUNDRETTE OWNER) [facility] [employer] Method Time Signature SARS-CoV-2 Swab, 03/18/2020 ECLR Specimen Nasopharynx 2:38 PM LAUNDRETTE OWNER Source SARS CoV-2 Undetected Undetected 03/18/2020 ECLR RNA, TMA 2:38 PM LAUNDRETTE OWNER Comment: SARS-CoV-2 RNA absent. This result does not rule out COVID-19 in the patient, as the sensitivity of the test depends o n the timing of the specimen collection and the quality of the specim en. Result should be correlated with patient's history and clinical presentat ion. ----ADDITIONAL INFORMATION---- This molecular amplification test was pe rformed using the Aptima SARS-CoV-2 assay ([employer] on the [employer] tem under emergency use authorization (EUA) by the U.S. Food and Drug Administ ration. Fact sheets for this EUA assay can be fo und at the following links: For Healthcare Providers: https://www.fd a.gov/media/453697/download For Patients: https://www.fda.gov/media/ 337976/download Specimen Anatomical Collection Method Collection Time Receive d Time (Source) Location / / Volume Laterality Varies 03/17/2020 12:40 03/17/2020 (Nasopharynx) PM LAUNDRETTE OWNER 10:13 PM LAUNDRETTE OWNER Chirag Fernández P.A.-C. LAB MICROBIOLOGY - GENERAL O [place] Performing Organization Address City/State/ZIP [facility] Phon e Number [facility]- [address] [place] [address] [place] [address] [place] [address] System in [address] documented in this encounter Visit Diagnoses Diagnosis Infection Upper Respiratory - Primary documented in this encounter Additional Health Concerns Infection Onset Date Last Indicated Resolved Time COVID19 Pending 03/17/2020 03/17/2020 03/18/2020 2:39 PM LAUNDRETTE OWNER Assessment Noted Time PHQ-9 Depression Total Score: 3 05/13/2013 2:06 PM LAUNDRETTE OWNER documented as of this encounter Care Teams Route Delivery Clerk Relationship Specialty Start Date End Date Suhail Lemus M.D. PCP - General Family Medicine 09/19/[address] [place] [phone] documented as of this encounter
--- OUTSIDE RECORDS SUMMARY | 2022-01-17 20:15 | XMS_ITS | Encounter Summary ---
:1945 Author Organization [facility] Address [address] [place] [address] Care Team Providers Name Role Phone Suhail Lemus M.D. Primary Care Provider Encounter Details Date Type Department Care Team Description 03/24/2020 Clinical Communication Department of [facility], Ophthalmology in [place] Reich M.D. [address] [place] [phone] Social History Tobacco Use Types Packs/Day Years Used Date Smoking Tobacco: Never Smokeless Tobacco: Never Alcohol Use Standard Drinks/Week Comments No 0 (1 standard drink = 0.6 oz pure alcoho l) Sex Assigned at Date Recorded Not on file documented as of this encounter Miscellaneous Notes Telephone Encounter - Jose Alberto Hernandes V. - 03/25/2020 8:40 AM CST 04/11 9:15 avail ICAL SERVICES PROFESSIONAL Telephone Encounter - Mehga Manning - 03/25/2020 8:17 AM CST Patient needs to reschedule today due to cold symptoms. Due to these symptoms, appointment should berescheduled at least 2 weeks out. Is there somewhere you would like to add patient? ICAL SERVICES PROFESSIONAL Telephone Encounter - LobergYakovjose angel Reich - 03/24/2020 1:24 PM CST Patient called she has a cold and want to reschedule her appointments tomorrow please call her to reschedule. ICAL SERVICES PROFESSIONAL documented in this encounter Plan of Treatment Not on filedocumented as of this encounter Visit Diagnoses Not on filedocumented in this encounter Additional Health Concerns Assessment Noted Time PHQ-9 Depression Total Score: 3 05/13/2013 2:06 PM CLINICAL SERVICES PROFESSIONAL documented as of this encounter Care Teams Director Telemetry Relationship Specialty Start Date End Date Suhail Lemus M.D. PCP - General Family Medicine 09/19/[address] [place] [phone] documented as of this encounter
--- OUTSIDE RECORDS SUMMARY | 2022-01-17 20:15 | XMS_ITS | Encounter Summary ---
:1945 Author Organization [facility] Address [address] [place] [address] Care Team Providers Name Role Phone Suhail Lemus M.D. Primary Care Provider Reason for Visit Reason Onset Date Comments Outpatient COVID-19 Testing 10/28/2019 Encounter Details Date Type Department Care Team Description 10/28/2019 External Outreach Department of [facility] Medicine, [place] T, P.A.-C. Respiratory (Primary Clinic, in [place], [address] Dx) [place], [place] [address] [address] [place], [place] [phone] (Work) [phone] Social History Tobacco Use Types Packs/Day Years [...] SARS Coronavirus-2, PCR (10/28/2019 1:07 PM CDT) [facility] Method Time Signature SARS Nasopharynx 10/30/2019 DTL [...] and its performa nce characteristics determined by [facility] in a manner co nsistent with CLIA requirements. Independent review by the U.S. Food and Drug Administration is pending. Visit the CDC website: https://www.cdc.gov/coronavirus/ ?? for the most recent guidelines on [place] virus testing. Fact Sheet for Healthcare Providers: (https://www.[employer].com/it-mmfil es/ Provider_Fact_Sheet_for_[facility]_COVI D-19.pdf) Fact Sheet for Patients: (https://www.[employer].com/it-mmfil es/ Patient_Fact_Sheet_for_COVID-19.pdf) Specimen Anatomical Collection Method Collection Time Receive d Time (Source) Location / / Volume Laterality Varies 10/28/2019 1:07 PM 0 7:18 CDT PM CDT Chirag Fernández P.A.-C. LAB MICROBIOLOGY - GENERAL O RDERABLES Performing Organization Address City/State/ZIP Code Phon e Number [facility] - [address] [place], [place] [address] [facility] [place] [address] Laboratories[facility] [address] documented in this encounter Visit Diagnoses Diagnosis Infection Upper Respiratory - Primary documented in this encounter Additional Health Concerns Infection Onset Date Last Indicated Resolved Time COVID19 Pending 10/28/2019 10/28/2019 10/28/2019 10:14 PM CDT Assessment Noted Time PHQ-9 Depression Total Score: 3 05/13/2013 2:06 PM WIRELESS CONSULTANT documented as of this encounter Care Teams Card Boxer Relationship Specialty Start Date End Date Suhail Lemus M.D. PCP - General Family Medicine 09/19/[address] [place] [phone] documented as of this encounter
--- OUTSIDE RECORDS SUMMARY | 2022-01-17 20:15 | XMS_ITS | Encounter Summary ---
:1945 Author Organization [facility] Address [address] [place] [address] Care Team Providers Name Role Phone Suhail Lemus M.D. Primary Care Provider Reason for Visit Reason Onset Date Comments Outpatient COVID-19 Testing 12/25/2019 Encounter Details Date Type Department Care Team Description 12/25/2019 External Outreach Department of Suhail Hwang M.D. [address] [phone] Infection Upper Medicine, [place] Chirag Fernández, P.A.-C [address] [place] [phone] Respiratory (Primary Clinic, in [place], [place]) [address] [phone] Social History Tobacco Use Types Packs/Day Years Used Date Smoking Tobacco: Never Smokeless Tobacco: Never Alcohol Use Standard Drinks/Week Comments No 0 (1 standard drink = 0.6 oz pure alcoho l) Sex Assigned at Date Recorded Not on file documented as of this encounter Progress Notes Alyssa Calero L.P.N. - 12/25/2019 2:55 PM CDT Encounter [...] RNA, V Symptomatic (12/25/2019 3:45 PM CDT) [facility] Method Time Signature SARS-CoV-2 Swab, 12/26/2019 ECLR [...] is performed using the Aptima SARS-CoV-2 assay ([facility] which has received Emergency Use Authori zation (EUA) by the U.S. Food and Drug Administration. Fact sheets for this Emergency Use Autho rization (EUA) assay can be found at the following links: For Healthcare Providers: https://www.fd a.gov/media/932598/download For Patients: https://www.fda.gov/media/ 315281/download Specimen Anatomical Collection Method Collection Time Receive d Time (Source) Location / / Volume Laterality Varies 12/25/2019 3:45 PM 0 9:28 (Nasopharynx) CDT PM CDT Chirag Fernández P.A.-C. LAB MICROBIOLOGY - GENERAL O RDERABLES Performing Organization Address City/State/ZIP Code Phon e Number [facility]- [address] [place] [address] [phone] [facility] [place] [address] System in [address] documented in this encounter Visit Diagnoses Diagnosis Infection Upper Respiratory - Primary documented in this encounter Additional Health Concerns Infection Onset Date Last Indicated Resolved Time COVID19 Pending 12/25/2019 12/25/2019 12/26/2019 2:16 PM CDT Assessment Noted Time PHQ-9 Depression Total Score: 3 05/13/2013 2:06 PM RISK MANAGEMENT INTERNSHIP documented as of this encounter Care Teams Public Transit Specialist Relationship Specialty Start Date End Date Suhail Lemus M.D. PCP - General Family Medicine 09/19/[address] [place] [phone] documented as of this encounter
--- OUTSIDE RECORDS SUMMARY | 2022-01-17 20:15 | XMS_ITS | Encounter Summary ---
:1945 Author Organization [facility] Address [address] [place] [address] Care Team Providers Name Role Phone Suhail Lemus M.D. Primary Care Provider Encounter Details Date Type Department Care Team Description 08/16/2020 Orders Only [facility] Suhail Lemus, Monitoring For Therapeutic Drug Therapy; M.DSariah Screening Examination Diabetes Mellitus [address] [place] [phone] Social History Tobacco Use Types Packs/Day [...] Depression Total Score: 3 05/13/2013 2:06 PM DIGITAL PRODUCT MANAGER documented as of this encounter Care Teams Patient Financial Counselor Relationship Specialty Start Date End Date Suhail Lemus M.D. PCP - General Family Medicine 09/19/[address] [phone] documented as of this encounter
--- OUTSIDE RECORDS SUMMARY | 2022-01-17 20:15 | XMS_ITS | Encounter Summary ---
:1945 Author Organization [facility] Address [address] [place] [address] Care Team Providers Name Role Phone Suhail Lemus M.D. Primary Care Provider Reason for Visit Reason Comments Facial Pain Encounter Details Date Type Department Care Team Description 12/29/2019 Clinical Communication Department of Damir Hwang, Facial Pain Medicine, [facility]oni Szymanski M[facility] Clinic, in [address] [phone] Social History Tobacco Use Types Packs/Day Years [...] Depression Total Score: 3 05/13/2013 2:06 PM FAMILY WORKER documented as of this encounter Care Teams Legal Job Titles Relationship Specialty Start Date End Date Suhail Lemus M.D. PCP - General Family Medicine 09/19/[address] [place] [phone] documented as of this encounter
--- OUTSIDE RECORDS SUMMARY | 2022-01-17 20:15 | XMS_ITS | Encounter Summary ---
:1945 Author Organization [facility] Address [address] [place] [address] Care Team Providers Name Role Phone Suhail Lemus M.D. Primary Care Provider Reason for Visit Reason Comments Triage Encounter Details Date Type Department Care Team Description 09/14/2019 Nurse Triage Department of [facility] Fide Dent R.N. [facility] [phone] (Work ) [facility], in [address] [phone] Social History Tobacco Use [...] Depression Total Score: 3 05/13/2013 2:06 PM RAILROAD DETECTIVE documented as of this encounter Care Teams Supervisor Cutting Department Relationship Specialty Start Date End Date Suhail Lemus M.D. PCP - General Family Medicine 09/19/[address] [place] [phone] documented as of this encounter
--- OUTSIDE RECORDS SUMMARY | 2022-01-17 20:15 | XMS_ITS | Encounter Summary ---
:1945 Author Organization [facility] Address [address] [place] [address] Care Team Providers Name Role Phone Suhail Lemus M.D. Primary Care Provider Encounter Details Date Type Department Care Team Description 12/28/2019 Clinical Communication Department of Emilie Fong Ophthalmology in [place], [place] [phone] [address] [facility] (Work) [place] [address] Social History Tobacco Use Types Packs/Day Years [...] Depression Total Score: 3 05/13/2013 2:06 PM FRAUD ANALYST documented as of this encounter Care Teams Specialized Developer Relationship Specialty Start Date End Date Suhail Lemus M.D. PCP - General Family Medicine 09/19/[phone] [place] [phone] documented as of this encounter
--- OUTSIDE RECORDS SUMMARY | 2022-01-17 20:15 | XMS_ITS | Encounter Summary ---
:1945 Author Organization [facility] Address [address] [place] [address] Care Team Providers Name Role Phone Suhail Lemus M.D. Primary Care Provider Encounter Details Date Type Department Care Team Description 02/09/2020 Hospital Encounter Department of Tee Quigley Ophthalmology in Roni Loya M.D. [address] [phone] Social History Tobacco Use Types Packs/Day Years [...] Tributary Branch Resul ts for this INJECTION, RAILROAD ENGINEER Retinal Vein procedure are i n PHARMACOLOGIC AGENT - Occlusion With the results OD - RIGHT EYE Macular Edema Right sectio n. documented in this encounter Results Intravitreal Injection, Pharmacologic Agent - OD - Right Eye (02/09/2020 8:59 AM RAILROAD ENGINEER) Specimen (Source) Anatomical Location Collection Method / Collectio n Time Received Time / Laterality Volume Narrative Tee Quigley M.D. - 02/09/2020 9:09 AM RAILROAD ENGINEER Pre-Procedure Verification Pre-procedure verification conducted to verify [...] bevacizumab intravitreal injecti on (AVASTIN) ??[facility]: 57813-636-16, Lot: [id number], Expi ration date: 03/14/2020 ??Route: intravitreal, Site: [...] Total Score: 3 05/13/2013 2:06 PM RAILROAD ENGINEER documented as of this encounter Care Teams Equipment Validation Engineer Relationship Specialty Start Date End Date Suhail Lemus M.D. PCP - General Family Medicine 09/19/[address] [place] [phone] documented as of this encounter
--- OUTSIDE RECORDS SUMMARY | 2022-01-17 20:15 | XMS_ITS | Encounter Summary ---
:1945 Author Organization [facility] Address [address] [place] [address] Care Team Providers Name Role Phone Suhail Lemus M.D. Primary Care Provider Encounter Details Date Type Department Care Team Description 03/17/2020 Admin Visit Department of Family Medicine, [facility] in [place], [place] [address] [place] [phone] Social History Tobacco Use Types Packs/Day [...] COVID19 Pending 03/17/2020 03/17/2020 03/18/2020 2:39 PM PROPERTY COORDINATOR Assessment Noted Time PHQ-9 Depression Total Score: 3 05/13/2013 2:06 PM PROPERTY COORDINATOR documented as of this encounter Care Teams Stem Cleaning Machine Feeder Relationship Specialty Start Date End Date Suhail Lemus M.D. PCP - General Family Medicine 09/19/[address] [place] [phone] documented as of this encounter
--- OUTSIDE RECORDS SUMMARY | 2022-01-17 20:15 | XMS_ITS | Encounter Summary ---
:1945 Author Organization [facility] Address [address] [place] [address] Care Team Providers Name Role Phone Suhail Lemus M.D. Primary Care Provider Reason for Visit Reason Comments Results Encounter Details Date Type Department Care Team Description 10/30/2019 Clinical Communication Department of Damir Hwang, Results Medicine, [facility] M[facility] Clinic, in [address] [phone] Social History Tobacco Use Types Packs/Day Years [...] Depression Total Score: 3 05/13/2013 2:06 PM EDGE ROLLER documented as of this encounter Care Teams Emergency Room Clerk Relationship Specialty Start Date End Date Suhail Lemus M.D. PCP - General Family Medicine 09/19/[address] [place] [phone] documented as of this encounter
--- OUTSIDE RECORDS SUMMARY | 2022-01-17 20:15 | XMS_ITS | Encounter Summary ---
:1945 Author Organization [facility] Address [address] [place] [address] Care Team Providers Name Role Phone Suhail Lemus M.D. 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 [facility] [place] [facility] Procedures Intravitreal Injection Gonda Appt Order - OD - Right Eye [address] [place] [address] Referral ID Status Reason Start Date Expiration Date Visits V isits Requested Authorized [id number] Canceled 06/12/2019 06/11/2020 5 5 Encounter Details Date Type Department Care Team Description 08/21/2019 Procedure visit Department of Dandy Quigley Ophthalmology in [place] M.D. Retinal Vein [place], [place] [address] Occlusion With [address] [place], [place] [phone] [phone] Social History Tobacco Use Types Packs/Day Years [...] seen by Dr. Do May 2019. Dr. Tee Quigley documented in this encounter [...] 1.25 mg bevacizumab intravitreal injecti on (AVASTIN) ??[facility]: 69335-967-56, Lot: [id number], Expi ration date: 10/26/2019 ??Route: intravitreal, Site: Right Eye Hand motion was present. Count fingers w as correct. Ancillary Staff Ancillary Staff: ?? Grace Harper COA . Tee Quigley M.D. OPHTH CLINIC PROCEDURES [...] Depression Total Score: 3 05/13/2013 2:06 PM ARTIST AND REPERTOIRE MANAGER documented as of this encounter Care Teams Placement Interviewer Relationship Specialty Start Date End Date Suhail Lemus M.D. PCP - General Family Medicine 09/19/[address] [place] [phone] documented as of this encounter
--- OUTSIDE RECORDS SUMMARY | 2022-01-17 20:15 | XMS_ITS | Encounter Summary ---
:1945 Author Organization [facility] Address [address] [place] [address] Care Team Providers Name Role Phone Suhail Lemus M.D. Primary Care Provider Reason for Visit Reason Comments Blood pressure follow-up Encounter Details Date Type Department Care Team Description 06/18/2019 Clinical Communication Department of Lise Wang od tomy Family Medicine, L, P.A.-C., follow-up [facility], in [address] [phone] Social History Tobacco Use Types Packs/Day Years Used Date Smoking Tobacco: Never Smokeless Tobacco: Never Alcohol Use Standard Drinks/Week Comments No 0 (1 standard drink = 0.6 oz pure alcoho l) Sex Assigned at Date Recorded Not on file documented as of this encounter Miscellaneous Notes Telephone Encounter - Jen Quigley C, R.N. - 06/18/2019 8:15 AM CDT SUBJECTIVE [...] were not included. Lise Wang P.A.-C. P [facility] Team Nurse ?? Please call Kristen and check on her blood pressure since consistently taking amlodipine and checking home pressures. Lise Duarte documented in this encounter Plan of Treatment Not on filedocumented as of this encounter Visit Diagnoses Not on filedocumented in this encounter Additional Health Concerns Assessment Noted Time PHQ-9 Depression Total Score: 3 05/13/2013 2:06 PM CREAM GATHERER documented as of this encounter Care Teams Department Supervisor Relationship Specialty Start Date End Date Suhail Lemus M.D. PCP - General Family Medicine 09/19/[address] [place] [phone] documented as of this encounter
--- OUTSIDE RECORDS SUMMARY | 2022-01-17 20:15 | XMS_ITS | Encounter Summary ---
:1945 Author Organization [facility] Address [address] [place] [address] Care Team Providers Name Role Phone Suhail Lemus M.D. Primary Care Provider Encounter Details Date Type Department Care Team Description 08/31/2020 Clinical Communication Department of [facility] Chirag flores M.D. [address], in [place] [address] [address] [facility] [phone] (Wo rk) [place] [address] [place] [phone] Social History Tobacco Use Types Packs/Day [...] appointment being requested?: Less than 14 days [place] In the past 14 days are any [...] sending patient for testing in [facility] or [facility], route encounter to the correct testing pool. documented in this encounter Plan of Treatment Not on filedocumented as of this encounter Visit Diagnoses Not on filedocumented in this encounter Additional Health Concerns Assessment Noted Time PHQ-9 Depression Total Score: 3 05/13/2013 2:06 PM THREAD TRIMMER documented as of this encounter Care Teams Cop Relationship Specialty Start Date End Date Suhail Lemus M.D. PCP - General Family Medicine 09/19/[address] [place] [phone] documented as of this encounter
--- OUTSIDE RECORDS SUMMARY | 2022-01-17 20:15 | XMS_ITS | Encounter Summary ---
:1945 Author Organization [facility] Address [address] [place] [address] Care Team Providers Name Role Phone Suhail Lemus M.D. Primary Care Provider Reason for Visit Appointment Request (Routine) - Closed Specialty Diagnoses / Procedures Referred By Contact Refer red To Contact Express or Urgent Care Referral ID Status Reason Start Date Expiration Date Visits Requ ested Visits Authorized [id number] Closed 12/25/2019 12/24/2020 1 1 Encounter Details Date Type Department Care Team Description 12/25/2019 Virtual Visit [facility] Express Delano Chicas (Primary Dx); Care at [facility] CANELO Hyde, C.N.PSariah, Congestion Sinus; [address] WHITE M.S.N. Runny Nose; [place], [place] [address] [facility] Pain Ear Left; [phone] [place], [place] Drip Post Nasal [phone] Social History Tobacco Use Types Packs/Day Years [...] by Bryce Chicas APRN, C.N.P., M.S.N. in [facility] to the patient's home. COVID-19 test is [...] one today. She also did travel to [facility] for clinicalappointments, she is also concerned for [...] spent a total of 20 minutes in [id number] time performing a review of the record [...] Depression Total Score: 3 05/13/2013 2:06 PM MULTIMEDIA ASSISTANT documented as of this encounter Care Teams String Top Sealer Relationship Specialty Start Date End Date Suhail Lemus M.D. PCP - General Family Medicine 09/19/[address] [phone] documented as of this encounter
--- OUTSIDE RECORDS SUMMARY | 2022-01-17 20:15 | XMS_ITS | Encounter Summary ---
:1945 Author Organization [facility] Address [address] [place] [address] Care Team Providers Name Role Phone Suhail Lemus M.D. Primary Care Provider Encounter Details Date Type Department Care Team Description 06/23/2019 Clinical Communication Department of Emilie Fong Ophthalmology in [place], [place] [phone] [address] [facility] (Work) [place] [address] Social History Tobacco Use Types Packs/Day Years [...] Depression Total Score: 3 05/13/2013 2:06 PM HUMAN RESOURCE OFFICER documented as of this encounter Care Teams Agricultural Technical Officer Relationship Specialty Start Date End Date Suhail Lemus M.D. PCP - General Family Medicine 09/19/[address] [place] [phone] documented as of this encounter
--- OUTSIDE RECORDS SUMMARY | 2022-01-17 20:15 | XMS_ITS | Encounter Summary ---
:[address] [facility] Address [address] [place] [address] Care Team Providers Name Role Phone Suhail Lemus M.D. Primary Care Provider Reason for Visit Reason Comments Lasix Encounter Details Date Type Department Care Team Description 02/25/2020 Clinical Communication Department of Damir Hwang, [facility], [facility]oni Szymanski M[facility]D. Clinic, in [address] [phone] [phone] Social History Tobacco Use Types Packs/Day Years Used Date Smoking Tobacco: Never Smokeless Tobacco: Never Alcohol Use Standard Drinks/Week Comments No 0 (1 standard drink = 0.6 oz pure alcoho l) Sex Assigned at Date Recorded Not on file documented as of this encounter Miscellaneous Notes Telephone Encounter - Jen Quigley, RCharles. - 02/25/2020 3:40 PM CST SUBJECTIVE CHIEF COMPLAINT / REASON FOR CALL Lasix Information Discussed Pt contacted and notified of provider recommendations. PLAN Disposition/Recommendation: patient transferred to the appointment desk Information/Education: patient/caller able to teach back Caller agreeable to plan of care: yes The following references were used: provider Lise Wang N ELEVATOR AGENT Telephone Encounter - Lise Wang, P.A. - 02/25/2020 3:07 PM CST Would need visit and cardiac testing first as we discussed. Lise Duarte N ELEVATOR AGENT Telephone Encounter - Mariam Michaud - 02/25/2020 2:25 PM CST Pt states that the last time she was in, Lise wanted to start her on lasix, but she didn't think sheneeded it. She is experiencing swelling in her feet now and would like to start the medication. Preferred pharmacy is [facility] on [facility]. N ELEVATOR AGENT documented in this encounter Plan of Treatment Not on filedocumented as of this encounter Visit Diagnoses Not on filedocumented in this encounter Additional Health Concerns Assessment Noted Time PHQ-9 Depression Total Score: 3 05/13/2013 2:06 PM GRAIN ELEVATOR AGENT documented as of this encounter Care Teams Desktop Technician Relationship Specialty Start Date End Date Suhail Lemus M.D. PCP - General Family Medicine 09/19/[address] [place] [phone] documented as of this encounter
--- OUTSIDE RECORDS SUMMARY | 2022-01-17 20:15 | XMS_ITS | Encounter Summary ---
:1945 Author Organization [facility] Address [address] [place] [address] Care Team Providers Name Role Phone Suhail Lemus M.D. Primary Care Provider Encounter Details Date Type Department Care Team Description 01/05/2020 Clinical Communication Department of Emilie Fong Ophthalmology in [place], [place] [phone] [address] [facility] (Work) [place] [address] Social History Tobacco Use Types Packs/Day Years [...] Depression Total Score: 3 05/13/2013 2:06 PM INDUSTRIAL YARD BRAKE COUPLER documented as of this encounter Care Teams Ordnance Engineering Technician Relationship Specialty Start Date End Date Suhail Lemus M.D. PCP - General Family Medicine 09/19/[address] [place] [phone] documented as of this encounter
--- OUTSIDE RECORDS SUMMARY | 2022-01-17 20:15 | XMS_ITS | Encounter Summary ---
:1945 Author Organization [facility] Address [address] [place] [address] Care Team Providers Name Role Phone Suhail Lemus M.D. Primary Care Provider Reason for Referral Outpatient (Routine) - Closed Specialty Diagnoses / Procedures Referred By Contact Refer red To Contact Ophthalmology Poncho Do M.D. [address] [phone] Referral ID Status Reason Start Date Expiration Date Visits Requ ested Visits Authorized [id number] Closed 06/15/2019 06/14/2020 1 1 Encounter Details Date Type Department Care Team Description 06/15/2019 Orders Only Department of Ophthalmology in Brenda cabrales [place], [place] J, C.O.A. [address] [place] [address] [place] [phone] [place], [place] [phone] Social History Tobacco Use Types Packs/Day Years [...] Depression Total Score: 3 05/13/2013 2:06 PM WELL LOGGER documented as of this encounter Care Teams Design Chief Relationship Specialty Start Date End Date Suhail Lemus M.D. PCP - General Family Medicine 09/19/[address] [place] [phone] documented as of this encounter
--- OUTSIDE RECORDS SUMMARY | 2022-01-17 20:15 | XMS_ITS | Encounter Summary ---
:1945 Author Organization [facility] Address [address] [place] [address] Care Team Providers Name Role Phone Suhail Lemus M.D. Primary Care Provider Reason for Visit Reason Comments COVID Nurse Line Encounter Details Date Type Department Care Team Description 03/17/2020 Clinical Communication Division of Patria Sultana Nurse Line [facility] L, R.N. [facility], [place], [place] [address] [place] [address] Social History Tobacco Use Types Packs/Day Years Used Date Smoking Tobacco: Never Smokeless Tobacco: Never Alcohol Use Standard Drinks/Week Comments No 0 (1 standard drink = 0.6 oz pure alcoho l) Sex Assigned at Date Recorded Not on file documented as of this encounter Miscellaneous Notes Telephone Encounter - Patria Sultana, R.N. - 03/17/2020 9:02 AM CST COVID-19 Nurse [...] swabbed for COVID-19 and Influenza, sent to [facility] located at [address] [place] [address] You must call [phone] elizabeth appointment time. Testing hours are Daily [...] water are not available, use a hand chief medical officer -Avoid touching your eyes, nose and mouth. [...] The following references were used: [facility] novel coronavirus (COVID- 19) resources Nursing judgement POLISHER documented in this encounter Plan of Treatment Not on filedocumented as of this encounter Visit Diagnoses Not on filedocumented in this encounter Additional Health Concerns Assessment Noted Time PHQ-9 Depression Total Score: 3 05/13/2013 2:06 PM SLAB POLISHER documented as of this encounter Care Teams Landman Relationship Specialty Start Date End Date Suhail Lemus M.D. PCP - General Family Medicine 09/19/[address] [place] [phone] documented as of this encounter
--- OUTSIDE RECORDS SUMMARY | 2022-01-17 20:15 | XMS_ITS | Encounter Summary ---
:1945 Author Organization [facility] Address [address] [place] [address] Care Team Providers Name Role Phone Suhail Lemus M.D. Primary Care Provider Encounter Details Date Type Department Care Team Description 05/02/2020 Clinical Communication Department of Emilie Fong Ophthalmology in [place], [place] [phone] [address] [facility] (Work) [place] [address] Social History Tobacco Use Types Packs/Day Years Used Date Smoking Tobacco: Never Smokeless Tobacco: Never Alcohol Use Standard Drinks/Week Comments No 0 (1 standard drink = 0.6 oz pure alcoho l) Sex Assigned at Date Recorded Not on file documented as of this encounter Miscellaneous Notes Telephone Encounter - Emilie Fong - 05/20/2020 12:51 PM CST Called and confirmed new appts. RITY CONTROLS ASSESSOR Telephone Encounter - Best Montes - 05/20/2020 9:40 AM CST Good morning, Ms. Pederson called in stating she is ill after receiving the covid vaccine (1st dose) earlier thisweek. Please call her to reschedule. Thank you, Drew RITY CONTROLS ASSESSOR documented in this encounter Plan of Treatment Not on filedocumented as of this encounter Visit Diagnoses Not on filedocumented in this encounter Additional Health Concerns Assessment Noted Time PHQ-9 Depression Total Score: 3 05/13/2013 2:06 PM SECURITY CONTROLS ASSESSOR documented as of this encounter Care Teams Type Caster Relationship Specialty Start Date End Date Suhail Lemus M.D. PCP - General Family Medicine 09/19/[address] [place] [phone] documented as of this encounter
--- OUTSIDE RECORDS SUMMARY | 2022-01-17 20:15 | XMS_ITS | Encounter Summary ---
:1945 Author Organization [facility] Address [address] [place] [address] Care Team Providers Name Role Phone Suhail Lemus M.D. Primary Care Provider Reason for Referral Outpatient (Routine) - Closed Specialty Diagnoses / Procedures Referred By Contact Refer red To Contact Emergency Medicine Diagnoses Pain Back Diarrhea Radha Conde, [facility] CANELO, C.N.P., D.N.P. [address] [place] [phone] Referral ID Status Reason Start Date Expiration Date Visits Requ ested Visits Authorized [id number] Closed 09/12/2020 09/12/2021 1 1 Reason for Visit Reason Comments Back Pain presents with left lower genaro k pain that she awoke with this morning Encounter Details Date Type Department Care Team Description 09/12/2020 Emergency [place] [facility] Nick Patricia Pain Back (Primary Dx); Department Darell PALMER M.D. Diarrhea [id number] [place] [phone] (Wo rk) Social History Tobacco Use Types [...] be sent through Care Everywhere. Diarrhea Adult Dzal-rj-Pwpt (Serbian)Food Choices to Help Relieve Diarrhea Adult (Serbian)Chronic Back Pain (Serbian)documented in this encounter Medications at Time of [...] as of this encounter ED Notes Radha Prado APRN, C.N.P. - 09/12/2020 7:01 PM CDT Care of patient transferred to wi by Peggy Patricia MD. Disposition pending CT [...] the prior study. Best Patricia III, M.D. [facility] CT PROCEDURES DX Lumbar Spine 2-3 Views [...] 8.0 09/12/2020 6:22 PM CDT [facility] 1.025 1.001 - 1.035 09/12/2020 6:22 PM [...] M.D. LAB URINE ORDERABLES Performing Organization Address City/State/[facility] Code Phon e Number [facility]- [address] [place] [address] [place] [address] [address] (ABNORMAL) CBC with Differential, Blood (09/12/2020 5:50 PM CDT) [facility] Method Time Signature Hemoglobin 15.1 (H) [...] Organization Address City/State/ZIP Code Phon e Number [address] [address] [place] [address] [address] (ABNORMAL) CRP (C-Reactive Protein) (09/12/2020 5:49 [...] Organization Address City/State/ZIP Code Phon e Number [facility]- [address] [place] [phone] [place] [address] [address] (ABNORMAL) Basic Metabolic Panel (09/12/2020 5:49 PM [...] CDT eGFR-Black/Afric 68 >=60 09/12/2020 CNFL an Czech mL/min/BSA 6:08 PM CDT Comment: ----ADDITIONAL INFORMATION---- Estimated GFR calculated using the 2009 CKD_EPI creatinine equation. eGFR Non-Black/ 59 (L) >=60 mL/min/BSA 09/12/2020 6:08 PM CDT CNFL Czech Comment: ----ADDITIONAL INFORMATION---- Estimated GFR calculated using [...] Organization Address City/State/ZIP Code Phon e Number [facility]- [address] [place] [address] [place] [address] System [address] documented in this encounter Visit Diagnoses [...] (COMPLETED) 1856 (New Bag - Provider: Shelby Andres(Tami)(CT), R.T.(R))1956 (Due: Stopped - Provider: Shelby Andres(Tami)(CT), R.T.(R)) 98 mL, intravenous, at 98 mL/hr, Adminis ter over 1 Hours, Once, On Sat09/12/20 at 1837, For 1 dose sodium chloride 0.9 % injection 10 mL (COMPLETED) 1857 (Given - Provider: Shelby Andres(Tami)(CT), RXimena(R)) 10 mL, intravenous, Once, On Sat09/12/20 at 1837, For 1 dose PRN Medication Order 09/10/2020 09/11/2020 09/12/2020 iohexoL 300 mg iodine/mL solution 194 mL (OMNIPAQUE) (COMPLETED) 185 (Given - Provider: Shelby Andres(Tami)(CT), RXimena(R) - Comment: [id number]) 194 mL, intravenous, Once in imaging, co ntrast, Starting on Sat09/12/20 at 1835, For 1 dose, If administered oral then dilute in 900 mL water documented in this encounter Additional Health Concerns Assessment Noted Time PHQ-9 Depression Total Score: 3 05/13/2013 2:06 PM SUBEDITOR documented as of this encounter Care Teams Budget Examiner Relationship Specialty Start Date End Date Suhail Lemus M.D. PCP - General Family Medicine 09/19/[address] [place] [phone] documented as of this encounter
--- OUTSIDE RECORDS SUMMARY | 2022-01-17 20:15 | XMS_ITS | Encounter Summary ---
:1945 Author Organization [facility] Address [address] [place] [address] Care Team Providers Name Role Phone Suhail Lemus M.D. Primary Care Provider Reason for Referral Outpatient (Routine) - Closed Specialty Diagnoses / Procedures Referred By Contact Refer red To Contact Allergy and Immunology Lindsay Noriega [facility] [place] [facility] M.D. [address] [place] [address] Referral ID Status Reason Start Date Expiration Date Visits Requ ested Visits Authorized [id number] Closed 11/06/2019 11/05/2020 1 1 utpatient (Routine) - Closed Specialty Diagnoses / Procedures Referred By Contact Refer red To Contact Diagnoses Rhinitis Chronic Lindsay Noriega M.D. [facility] Procedures Basic Skin Test [address] [place] [address] Referral ID Status Reason Start Date Expiration Date Visits Requ ested Visits Authorized [id number] Closed 11/06/2019 11/05/2020 1 1 Reason for Visit Reason Comments Allergies Outpatient (Routine) - Closed Specialty Diagnoses / Procedures Referred By Contact Refer red To Contact Allergy and Immunology Diagnoses Allergy Seasonal Lise Wang [facility] P.A. [address] [place] [address] Referral ID Status Reason Start Date Expiration Date Visits V isits Requested Authorized [id number] Closed Specialty 09/16/2019 2020 1 1 Services Required Encounter Details Date Type Department Care Team Description 11/06/2019 Office Visit Department of Allergy Lindsay Noriega Rh initis Chronic (Primary Dx); in Main Bains M.D. Drip Post Nasal; [place] [address] Dysfunction Eustachian Tube Bilateral; [address] [place] Hypertension Essential Prima ry; [place] [phone] Dyspnea On Exertion; [phone] Morbid Obesity Body Mass Ind ex 50.0-59.9 Adult ([facility]) Social History Tobacco Use Types Packs/Day Years [...] from 11/06/2019 in Department of Allergy in [place], [place] Controls Histamine (15 min W/F) 5x5 mm w Diluent (15 min W/F) 0 [place] Basic Panel Juan Antonio, White 0 Birch, Black 0 Black [place] 0 Red [place] 0 Elm, Uruguayan 0 Maple, Sugar 0 Rose Bud, White 0 Alexander, White 0 Mac[place], White 0 [place], Uruguayan 0 [place] Blue 0 Romario 0 [place] Mix 0 Grenadian Plantain 0 Kochia 0 Reed's Quarter 0 Nettle 0 Pigweed, Rough 0 Ragweed Mix 0 Kazakh Thistle 0 Acremonium 0 Alternaria Alternata 0 [...] Morbid Obesity Body Mass Index 50.0-59.9 Adult ([facility]) Ms. Pederson endorses symptoms of shortness of [...] Total Score: 3 05/13/2013 2:06 PM BUSINESS DEVELOPMENT REPRESENTATIVE documented as of this encounter Care Teams Clamp Operator Relationship Specialty Start Date End Date Suhail Lemus M.D. PCP - General Family Medicine 09/19/[address] [place] [phone] documented as of this encounter
--- OUTSIDE RECORDS SUMMARY | 2022-01-17 20:16 | XMS_ITS | Encounter Summary ---
:1945 Author Organization [facility] Address [address] [place] [address] Care Team Providers Name Role Phone Suhail Lemus M.D. Primary Care Provider Reason for Referral Outpatient (Routine) - Closed Specialty Diagnoses / Procedures Referred By Contact Refer red To Contact Family Medicine Diagnoses Hypertension Essential Primary Lise Wang, [facility].A[facility] [address] [place] [address] Referral ID Status Reason Start Date Expiration Date Visits Requ ested Visits Authorized [id number] Closed 06/04/2019 06/03/2020 1 1 Scheduling Instructions [...] Expiration Date Visits Requ ested Visits Authorized [id number] Closed 07/21/2018 07/21/2019 1 1 Encounter Details Date Type Department Care Team Description 06/04/2019 Office Visit Department of [facility] [place], Lise L, Hyp ertension Essential Primary (Primary Dx); Medicine, [place] Hilda, PDavid Segoviajose angel martinez Left [facility], in [address] [phone] Social History Tobacco Use Types [...] on a new medication by provider at [facility] in [place]. She is unsure of what this is [...] Name Type Priority Associated Diagnoses Order S carroll Family Medicine Outpatient Referral Routine Hypertension Expec arabella: office visit Essential Primary 09/04/2019 (clinic) (Approximate), Expires: 06/03/2022 documented as of this encounter Visit Diagnoses Diagnosis Hypertension Essential Primary - Primary Sciatica Left documented in this encounter Additional Health Concerns Assessment Noted Time PHQ-9 Depression Total Score: 3 05/13/2013 2:06 PM RED HAT ENGINEER documented as of this encounter Care Teams Yard Foreman Relationship Specialty Start Date End Date Suhail Lemus M.D. PCP - General Family Medicine 09/19/[address] [place] [phone] documented as of this encounter
--- OUTSIDE RECORDS SUMMARY | 2022-01-17 20:16 | XMS_ITS | Encounter Summary ---
:[address] [facility] Address [address] [place] [address] Care Team Providers Name Role Phone Suhail Lemus M.D. Primary Care Provider Encounter Details Date Type Department Care Team Description 10/02/2017 Clinical Communication Department of Damir Hwang, Medicine, Roni Szymanski M.D. Clinic, in [address] [phone] Social History Tobacco Use Types Packs/Day Years [...] leg pain. Please call them back at [phone]. documented in this encounter Plan of Treatment Not on filedocumented as of this encounter Visit Diagnoses Not on filedocumented in this encounter Additional Health Concerns Assessment Noted Time PHQ-9 Depression Total Score: 3 05/13/2013 2:06 PM GLAZIER SUPERVISOR documented as of this encounter Care Teams Consumer Education Specialist Relationship Specialty Start Date End Date Suhail Lemus M.D. PCP - General Family Medicine 09/19/[address] [place] [phone] documented as of this encounter
--- OUTSIDE RECORDS SUMMARY | 2022-01-17 20:16 | XMS_ITS | Encounter Summary ---
:1945 Author Organization [facility] Address [address] [place] [address] Care Team Providers Name Role Phone Suhail Lemus M.D. Primary Care Provider Reason for Visit Reason Onset Date Comments Pre-visit Testing Orders 04/29/2019 Encounter Details Date Type Department Care Team Description 04/29/2019 Clinical Department of Ernestina Pre-visit Test ing Communication Ophthalmology in [place] Reich M.D. Orders [place], [place] [address] [facility] [address] [place] [phone] Social History Tobacco Use Types Packs/Day Years Used Date Smoking Tobacco: Never Smokeless Tobacco: Never Alcohol Use Standard Drinks/Week Comments No 0 (1 standard drink = 0.6 oz pure alcoho l) Sex Assigned at Date Recorded Not on file documented as of this encounter Miscellaneous Notes Telephone Encounter - Jose Alberto Hernandes V. - 04/29/2019 1:40 PM CST Orders placed TRONIC TECH Telephone Encounter - Vira Flor - 04/29/2019 [...] Fundus Standard; OCT Spectralis; Optos Vira Mina TRONIC TECH documented in this encounter Plan of Treatment Not on filedocumented as of this encounter Visit Diagnoses Not on filedocumented in this encounter Additional Health Concerns Assessment Noted Time PHQ-9 Depression Total Score: 3 05/13/2013 2:06 PM ELECTRONIC TECH documented as of this encounter Care Teams Business Integration Manager Relationship Specialty Start Date End Date Suhail Lemus M.D. PCP - General Family Medicine 09/19/[address] [place] [phone] documented as of this encounter
--- OUTSIDE RECORDS SUMMARY | 2022-01-17 20:16 | XMS_ITS | Encounter Summary ---
:1945 Author Organization [facility] Address [address] [place] [address] Care Team Providers Name Role Phone Suhail Lemus M.D. 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 Membrane Macula Epiretinal Left; [address] Cataract Senile Nuclear Sclerosis Bilate ral [address] [place] [phone] Social History Tobacco Use Types Packs/Day Years [...] further treatment recommendations. Patient is from the [facility] and would prefer to follow up there for further treatment per recommendations. Mild epiretinal membrane left discussed with patient, observe at this time. Mild nuclear sclerosis, both eyes, observe at this time. ONAL CARER documented in this encounter Plan of Treatment [...] Depression Total Score: 3 05/13/2013 2:06 PM PERSONAL CARER documented as of this encounter Care Teams Senior Research Manager Relationship Specialty Start Date End Date Suhail Lemus M.D. PCP - General Family Medicine 09/19/[address] [place] [phone] documented as of this encounter
--- OUTSIDE RECORDS SUMMARY | 2022-01-17 20:16 | XMS_ITS | Encounter Summary ---
:1945 Author Organization [facility] Address [address] [place] [address] Care Team Providers Name Role Phone Suhail Lemus M.D. Primary Care Provider Reason for Visit Reason Onset Date Comments Communication 10/07/2017 Encounter Details Date Type Department Care Team Description 10/07/2017 Clinical Communication Department of Family Lemus Communication Medicine, Roni Jang M.D. [address] [address] [place], [place] [phone] (Work) [phone] Social History Tobacco Use Types Packs/Day Years [...] Depression Total Score: 3 05/13/2013 2:06 PM REGULATORY AND COMPLIANCE TECHNICIAN documented as of this encounter Care Teams Last Sawyer Relationship Specialty Start Date End Date Suhail Lemus M.D. PCP - General Family Medicine 09/19/[address] [place] [phone] documented as of this encounter
--- OUTSIDE RECORDS SUMMARY | 2022-01-17 20:16 | XMS_ITS | Encounter Summary ---
:1945 Author Organization [facility] Address [address] [place] [address] Care Team Providers Name Role Phone Suhail Lemus M.D. Primary Care Provider Reason for Visit Reason Comments Testing only visit Encounter Details Date Type Department Care Team Description 05/28/2019 Ancillary Department of Dandy Do Bran ch Procedure Ophthalmology in Poncho Reich M.D. Retinal Vein [place], [place] [address] [facility] Occlusion With [address] [place], [place] [phone] [phone] Social History Tobacco Use Types Packs/Day Years [...] Total Score: 3 05/13/2013 2:06 PM INDUSTRIAL PSYCHOLOGIST documented as of this encounter Care Teams Coater Operator Relationship Specialty Start Date End Date Suhail Lemus M.D. PCP - General Family Medicine 09/19/[address] [place] [phone] documented as of this encounter
--- OUTSIDE RECORDS SUMMARY | 2022-01-17 20:16 | XMS_ITS | Encounter Summary ---
:1945 Author Organization [facility] Address [address] [place] [address] Care Team Providers Name Role Phone Suhail Lemus M.D. Primary Care Provider Reason for Visit Reason Comments URRay was seen 04/14 and treated. 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 Appointment Request (Routine) - Closed Specialty Diagnoses / Procedures Referred By Contact Refer red To Contact Family Medicine Referral ID Status Reason Start Date Expiration Date Visits Requ ested Visits Authorized [id number] Closed 05/09/2018 05/09/2019 1 Encounter Details Date Type Department Care Team Description 05/10/2018 Office Visit Department of Family Seda Delgadillo M.D. [address] [place] [address] Pneumonia (Primary Dx); Medicine, [place] Almaz Sparks, P.A.-CSariah [address] [place] [address] C[facility], in [address] [phone] Social History Tobacco Use Types Packs/Day Years Used Date Smoking Tobacco: Never Smokeless Tobacco: Never Alcohol Use Standard Drinks/Week Comments No 0 (1 standard drink = 0.6 oz pure alcoho l) Sex Assigned at Date Recorded Not on file documented as of this encounter Last Filed Vital Signs Vital Sign Reading Time Taken Comments Blood Pressure 188/82 05/10/2018 9:59 AM EDITOR IN CHIEF Pulse 83 05/10/2018 9:59 AM EDITOR IN CHIEF Temperature 36.4 ??C (97.5 ??F) 05/10/2018 9:59 AM EDITOR IN CHIEF Respiratory Rate 20 05/10/2018 9:59 AM EDITOR IN CHIEF Oxygen Saturation 97% 05/10/2018 9:59 AM EDITOR IN CHIEF Inhaled Oxygen Concentration - - Weight - [...] Cough As noted above. Almaz Sparks P.A.-C. OR IN CHIEF documented in this encounter Plan of Treatment Not on filedocumented as of this encounter Visit Diagnoses Diagnosis Pneumonia - Primary Cough Unspecified Type documented in this encounter Additional Health Concerns Assessment Noted Time PHQ-9 Depression Total Score: 3 05/13/2013 2:06 PM EDITOR IN CHIEF documented as of this encounter Care Teams Journeyman Machinist Relationship Specialty Start Date End Date Suhail Lemus M.D. PCP - General Family Medicine 09/19/[address] [place] [phone] documented as of this encounter
--- OUTSIDE RECORDS SUMMARY | 2022-01-17 20:16 | XMS_ITS | Encounter Summary ---
:1945 Author Organization [facility] Address [address] [place] [address] Care Team Providers Name Role Phone Suhail [...] Depression Total Score: 3 05/13/2013 2:06 PM ZOOLOGY TECHNICAL OFFICER documented as of this encounter Care Teams Flange Turner Relationship Specialty Start Date End Date Suhail Lemus M.D. PCP - General Family Medicine 09/19/[address] [place] [phone] documented as of this encounter
--- OUTSIDE RECORDS SUMMARY | 2022-01-17 20:16 | XMS_ITS | Encounter Summary ---
:1945 Author Organization [facility] Address [address] [place] [address] Care Team Providers Name Role Phone Suhail Lemus M.D. Primary Care Provider Reason for Visit Reason Comments Med Refill Encounter Details Date Type Department Care Team Description 05/30/2018 Refill Department of Family Medicine, Suhail Ragland M.D. Med Refill [phone] [place] [phone] [place], [place] [address] [phone] Social History Tobacco Use Types Packs/Day Years [...] Communication- FYI Provider: Bryce Lemus M.D. Pharmacy: [facility] [place], [place] Pharmacy Comment: Pharmacist recommends prophylactic treatment [...] Depression Total Score: 3 05/13/2013 2:06 PM DITCH REPAIRER documented as of this encounter Care Teams Sheet Rock Applicator Relationship Specialty Start Date End Date Suhail Lemus M.D. PCP - General Family Medicine 09/19/[address] [place] [phone] documented as of this encounter
--- OUTSIDE RECORDS SUMMARY | 2022-01-17 20:16 | XMS_ITS | Encounter Summary ---
:1945 Author Organization [facility] Address [address] [place] [address] Care Team Providers Name Role Phone Suhail Lemus M.D. Primary Care Provider Reason for Visit Reason Comments Blurred Vision Outpatient (Routine) - Closed Specialty Diagnoses / Procedures Referred By Contact Refer red To Contact Ophthalmology Diagnoses [place]ribut[place] Branch Retinal Vein Occlusion With Macular Edema [facility] [address] [place] [phone] Referral ID Status Reason Start Date Expiration Date Visits Requ ested Visits Authorized [id number] Closed 04/29/2019 04/28/2020 1 1 Encounter Details Date Type Department Care Team Description 05/29/2019 Comprehensive Visit Department of Giulia Do atmolina Age-Related Macular Degeneration Unspecified Stage Bilateral (Primary Dx); Ophthalmology in [place] Reich M.D. 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 PCP - General Family Medicine 09/19/[address] [place] [phone] documented as of this encounter
--- OUTSIDE RECORDS SUMMARY | 2022-01-17 20:16 | XMS_ITS | Encounter Summary ---
:1945 Author Organization [facility] Address [address] [place] [address] Care Team Providers Name Role Phone Suhail Lemus M.D. Primary Care Provider Reason for Referral Outpatient (Routine) - Closed Specialty Diagnoses / Procedures Referred By Contact Refer red To Contact Ophthalmology Poncho oD M.D. [place] [address] [place] [address] Referral ID Status Reason Start Date Expiration Date Visits Requ ested Visits Authorized [id number] Closed 06/12/2019 06/11/2020 1 1 Scheduling Instructions Plan for Injections 05/29/19: Avastin RIGHT for BRVO/CME within 1 week Follow up for 3 more injections every 4- 5 weeks Provisional Plan 06/11/19:?? OK to continue number of injections but extend interval to q6-8 weeks?? Follow up: 4-5 weeks after the last inje ction with OCT both eyes (hold injection slot) ?? Injection details: [place] or Tamayo Fa lls injections Encounter Details Date Type Department Care Team Description 06/12/2019 Orders Only Department of Sarah Mcdaniel, [facility] Ophthalmology in [facility] Retinal Vei n [place], [place] Occlusion With [address] [place] [address] (Primary Dx) [phone] Social History Tobacco Use Types Packs/Day Years [...] Depression Total Score: 3 05/13/2013 2:06 PM TATTOO AND BODY ARTIST documented as of this encounter Care Teams Liner Machine Operator Helper Relationship Specialty Start Date End Date Suhail Lemus M.D. PCP - General Family Medicine 09/19/[address] [place] [phone] documented as of this encounter
--- OUTSIDE RECORDS SUMMARY | 2022-01-17 20:16 | XMS_ITS | Encounter Summary ---
:1945 Author Organization [facility] Address [address] [place] [address] Care Team Providers Name Role Phone Suhail Lemus M.D. Primary Care Provider Encounter Details Date Type Department Care Team Description 08/05/2018 Clinical Communication Department of Masha Polanco Dermatology in [place], [place]. [place], [place] [phone] [address] [facility] (Work) [place] [address] Social History Tobacco Use Types Packs/Day Years [...] Dr. Harris's note with options placed in elementary secretary box to mail per patient's request. [...] Depression Total Score: 3 05/13/2013 2:06 PM CUSTOMS INSPECTOR documented as of this encounter Care Teams Steel Unloader Relationship Specialty Start Date End Date Suhail Lemus M.D. PCP - General Family Medicine 09/19/[address] [place] [phone] documented as of this encounter
--- OUTSIDE RECORDS SUMMARY | 2022-01-17 20:16 | XMS_ITS | Encounter Summary ---
:[address] [facility] Address [address] [place] [address] Care Team Providers Name Role Phone Suhail Lemus M.D. Primary Care Provider Reason for Visit Reason Comments Establish Care lab questions Appointment Request (Routine) - Closed Specialty Diagnoses / Procedures Referred By Contact Refer red To Contact Family Medicine Referral ID Status Reason Start Date Expiration Date Visits Requ ested Visits Authorized [id number] Closed 09/19/2017 09/19/2018 1 Encounter Details Date Type Department Care Team Description 09/30/2017 Office Visit Department of Suhail Hwang Hy pertension Essential Primary (Primary Dx); Roni Victoria M.D. Screening Cancer Colon; [facility], [place] [address] Screenin g Test Laboratory; [facility] Morbid Obesity Body Mass Index Greater T pulido Or Equal To 40 Adult (HCC); [place], [place] Apnea Sleep Obstructive [address] [place] [phone] [place], [place] [phone] (Work) [phone] Social History Tobacco Use Types Packs/Day Years [...] in May while on a trip to [place]. He was also noted at that time [...] Expected date: 10/01/2017 Other orders - Tdap: Qqrbixm-smwsyzxuzd-dvvqaccri pertussis vaccine (7 years and older) - [...] - Non RST (10/06/2017 5:00 PM CDT) [facility] gist Method Time Signature Result Negative [...] Cologuard performance data in a [facility] pivotal study using colonoscopy as the reference method can be accessed at the following location: www.Productify/results. ??Additional description of the Cologuard test process, warnings and pre cautions can be found at [email or web address].[email or web address].[email or web address]. Rx Only. Specimen Anatomical Collection Method Collection Time Receive d Time (Source) Location / / Volume Laterality Stool (Stool) 10/06/2017 5:00 PM 10/09/19 18 CDT 11:50 AM CDT Suhail Lemus M.D. LAB BODY FLUIDS AND STOOLS O RDERAALEJANDRO Performing Organization Address City/State/ZIP Code Phon e Number [facility] [address] [place] [address] 13 Comprehensive Metabolic Panel (09/30/2017 3:08 PM CDT) athologist Signature Potassium, S 4.2 3.6 - 5.2 09/30/2017 [facility] mmol/L 3:54 PM CDT [email or web address] LAB Sodium, S 142 135 - 145 09/30/2017 [facility] mmol/L 3:54 PM CDT [facility] LAB Chloride, S 103 98 - 107 09/30/2017 [facility] mmol/L 3:54 PM CDT [email or web address] LAB Bicarbonate, S 29 22 - 29 09/30/2017 [facility] mmol/L 3:54 PM [facility] Anion Gap 10 7 - 15 09/30/2017 [facility] 3:54 PM [facility] BUN (Blood Urea 14 6 - 21 09/30/2017 [facility] Nitrogen), S mg/dL 3:54 PM [facility] Creatinine 0.88 0.59 - 09/30/2017 [facility] 1.04 mg/dL 3:54 PM [facility] eGFR-Non 66 >=60 09/30/2017 [facility] Black/ mL/min/BSA 3:54 PM [facility] Comment: ----ADDITIONAL INFORMATION---- Estimated GFR calculated using the 2009 CKD_EPI creatinine equation. eGFR-Black/ 76 >=60 mL/min/BSA 2017 3:54 PM [facility] Comment: ----ADDITIONAL INFORMATION---- Estimated GFR calculated using the 2009 CKD_EPI creatinine equation. Calcium, Total, S 9.4 8.8 - 10.2 09/30/2017 3:54 PM [facility] mg/dL [facility] Glucose, S 124 70 - 140 mg/dL 09/30/2017 3:54 PM [facility] Protein, Total, S 7.0 6.3 - 7.9 g/dL 09/30/2017 3:54 P M [facility] Albumin, S 3.9 3.5 - 5.0 g/dL 09/30/2017 3:54 PM [facility] Aspartate Aminotransferase 34 8 - 43 U/L 09/30/2017 3 :54 PM [facility] S [facility] Alkaline Phosphatase, S 123 55 - 142 U/L 09/30/2017 3: [address] [facility] Alanine Aminotransferase 33 7 - 45 U/L 09/30/2017 3:5 4 PM [facility] Bilirubin, Total, S 0.3 <=1.2 mg/dL 09/30/2017 3:54 PM [facility] CDT [facility] LAB Specimen Anatomical Collection Method Collection Time Receive d Time (Source) Location / / Volume Laterality Blood (Blood, 09/30/2017 3:08 PM 10/01/19 18 3:18 Venous) CDT PM CDT Suhail Lemus M.D. LAB BLOOD ADD-ON Performing Organization Address City/[facility]/ZIP Code Phon e Number [facility] [address] [address] [place] [facility] HCV Ab Scrn w/Reflex to HCV PCR, Serum (09/30/2017 3:08 PM CDT) [facility] gist Method Time Signature HCV Ab Nonreactive Nonreactive 10/01/2017 [facility] Screen, S 10:53 AM CDT [facility] Specimen Anatomical Collection Method Collection Time Receive d Time (Source) Location / / Volume Laterality Blood (Blood, 09/30/2017 3:08 PM 10/01/19 18 Venous) CDT 10:06 PM CDT Narrative [facility] - 10/01/2017 10:53 AM CDT Specimen Information: Specimen ID: [id number] Specimen Type: Blood Specimen Collection Start Date: 10/01/19 18 ??3:08 PM Specimen Received Date: 09/30/2017 10:06 PM Specimen ID: [id number] Specimen Type: Blood Specimen Collection Start Date: 10/01/19 18 ??3:09 PM Specimen Received Date: 09/30/2017 10:06 PM Suhail Lemus M.D. LAB MICROBIOLOGY - BLOOD ORD ERABLES Performing Organization Address City/State/ZIP Code Phon e Number [facility] [address] [facility] [place] [address] [facility] documented in this encounter Visit Diagnoses Diagnosis Hypertension Essential Primary - Primary Screening Cancer Colon Screening Test Laboratory Morbid Obesity Body Mass Index Greater T pulido Or Equal To 40 Adult (HCC) Apnea Sleep Obstructive documented in this encounter Additional Health Concerns Assessment Noted Time PHQ-9 Depression Total Score: 3 05/13/2013 2:06 PM REGULATORY COMPLIANCE MANAGER documented as of this encounter Care Teams Production Specialist Relationship Specialty Start Date End Date Suhail Lemus M.D. PCP - General Family Medicine 09/19/[address] [phone] documented as of this encounter
--- OUTSIDE RECORDS SUMMARY | 2022-01-17 20:16 | XMS_ITS | Encounter Summary ---
:1945 Author Organization [facility] Address [address] [place] [address] Care Team Providers Name Role Phone Suhail Lemus M.D. Primary Care Provider Encounter Details Date Type Department Care Team Description 05/29/2019 Orders Only Department of Jose Alberto Hernandes [facility] Ophthalmology in V. Retinal Vein [place], [place] [address] [facility] Occlusion With [address] [place], [place] [phone] (Primary Dx) [phone] Social History Tobacco Use Types Packs/Day Years [...] Depression Total Score: 3 05/13/2013 2:06 PM HEAD OF PRODUCT documented as of this encounter Care Teams Plush Brusher Relationship Specialty Start Date End Date Suahil Lemus M.D. PCP - General Family Medicine 09/19/[address] [place] [phone] documented as of this encounter
--- OUTSIDE RECORDS SUMMARY | 2022-01-17 20:16 | XMS_ITS | Encounter Summary ---
:1945 Author Organization [facility] Address [address] [place] [address] Care Team Providers Name Role Phone Suhail Lemus M.D. Primary Care Provider Encounter Details Date Type Department Care Team Description 05/31/2018 Nurse [facility], [facility], in [place], [place] [address] [place] [address] Social History Tobacco Use Types Packs/Day Years [...] Depression Total Score: 3 05/13/2013 2:06 PM PHOTOENGRAVING PROOFER documented as of this encounter Care Teams Office Automation Clerk Relationship Specialty Start Date End Date Suhail Lemus M.D. PCP - General Family Medicine 09/19/[address] [place] [phone] documented as of this encounter
--- OUTSIDE RECORDS SUMMARY | 2022-01-17 20:16 | XMS_ITS | Encounter Summary ---
:1945 Author Organization [facility] Address [address] [place] [address] Care Team Providers Name Role Phone Unavailable Primary Care Provider Unavailable Encounter Details Date Type Department Care Team Description 07/12/2016 Hospital Encounter HX [facility] ME Kaylin Mcfadden, INDUSTRIAL MACHINE ASSEMBLER, C.N.P. [address] [place], [place] [address] (Wo rk) Social History [...] Lymph Absolute 2.53 x10(9)/L 07/12/2016 13:20 CDT [place] Absolute 0.48 x10(9)/L 07/12/2016 13:20 CDT Eos [...] Ordered: OV Est Pt Level 4 - 38061 - 25 min Cough NOS See #1 above. Ordered: CBC (includes Auto Differential) OV Est Pt Level 4 - 21104 - 25 min XR Chest 2 Views Fatigue NOS See #1 above. She was instructed to contact the clinic with worsening or no improvement in symptoms. All questions were answered. She left in no acute distress. A total of 25 minutes with 20 minutes used for counseling and coordination of care. Ordered: OV Est Pt Level 4 - 34315 - 25 min XR Chest 2 Views FOOTNOTES [1]XR Chest 2 Views; MITALI OWEN 07/12/2016 13:11 CDT Electronically Signed By: ARIELLA MCFADDEN NP On: 08/10/2016 06:37 PM Source: [facility] POWER[facility] Document Id: [id number] documented in this encounter Miscellaneous Notes Miscellaneous - Shira Shaw - 07/13/2016 8:38 AM CDT XR Results Document Contains Addenda Addendum by FERMIN LUTZ RN on July 16, 2016 10:00:57 CDT LM re: details below. Addendum by VANESSA WOO RN on July 13, 2016 11:13:42 CDT LM for patient to call clinic for message as below. Addendum by ARIELLA MCFADDEN LEAD PERSON on July 13, 2016 09:18:11 CDT From: ARIELLA MCFADDEN LEAD PERSON To: [place] RN Nurse; Sent: 07/13/2016 09:18:11 CDT Subject: RE: XR Results Please call patient and let her know that her chest XR was negative for pneumonia, but her WBC levelwas slightly elevated. I ordered doxy 2x daily for 10 days for symptom management. PCP elsewhere. She was quite demanding during her exam. Thanks! From: SHIRA SHAW To: ARIELLA MCFADDEN LEAD PERSON; Sent: 07/13/2016 08:38:30 CDT ! Subject: XR [...] phone. Per patients request. Please advise. Source: [facility] POWERCHART Document Id: [id number] Miscellaneous - Wendy Edmonds, L.P.NSariah - 07/12/2016 12:23 PM CDT Adult Drying Rack Changer Intake/History Adult Drying Rack Changer Intake/History Entered On: 07/12/2016 12:27 CDT Performed On: 07/12/2016 12:23 CDT by WENDY EDMONDS Intake Chief Complaint : Bad cough [...] Size : Large SpO2 : 98 % WENDY EDMONDS - 07/12/2016 12:23 CDT General Info Information Given By : Patient Languages : Mauritian Is Patient Female and 13-50 no hysterectomy : No WENDY EDMONDS - 07/12/2016 12:23 CDT Subjective Pain Symptoms : No WENDY EDMONDS - 07/12/2016 12:23 CDT Dependent Habits Exposure to Tobacco Smoke : Care provider denies smoking in home, Other: former 20yrs ago. Smoking Status : Former smoker Tobacco 2A : Yes Tobacco Use/Currently Using : No Tobacco Use/Last 30 Days : No Tobacco Use/Last 12 months : No WENDY EDMONDS - 07/12/2016 12:23 CDT Recreational Drug Use Grid Drug Use : None WENDY EDMONDS - 07/12/2016 12:23 CDT Source: [facility] Useful at NightCHART Document Id: [id number] documented in this encounter Plan of [...] (ABNORMAL) Automated Differential (07/12/2016 1:20 PM CDT) [facility] gist Method Time Signature Absolute 7.46 (H) [...] C.N.P. LAB BLOOD ADD-ON Performing Organization Address City/State/[facility] Code Phon e Number POWERCHART (ABNORMAL) CBC with Differential (07/12/2016 1:20 PM CDT) Analysis Performed At Patho logist Time Signature Leukocytes 10.7 (H) 3.4 - 10.5 POWERCHART X109L Erythrocytes 5.35 (H) 3.90 - POWERCHART 5.03 [id number] Hemoglobin 14.5 12.0 - POWERCHART 15.5 GDL [...] C.N.P. LAB BLOOD ADD-ON Performing Organization Address City/State/[facility] Code Phon e Number POWERCHART documented in this encounter Visit Diagnoses Not on filedocumented in this encounter Additional Health Concerns Assessment Noted Time PHQ-9 Depression Total Score: 3 05/13/2013 2:06 PM METAL FITTER documented as of this encounter
--- OUTSIDE RECORDS SUMMARY | 2022-01-17 20:16 | XMS_ITS | Encounter Summary ---
:1945 Author Organization [facility] Address [address] [address] Care Team Providers Name Role Phone Suhail Lemus M.D. Primary Care Provider Encounter Details Date Type Department Care Team Description 06/11/2019 Clinical Communication Department of [place], Ophthalmology in Poncho Reich M.D. [address] [place] [phone] Social History Tobacco Use Types Packs/Day Years [...] Depression Total Score: 3 05/13/2013 2:06 PM TRACK LAYING SUPERVISOR documented as of this encounter Care Teams Customer Account Executive Relationship Specialty Start Date End Date Suhail Lemus M.D. PCP - General Family Medicine 09/19/[address] [place] [phone] documented as of this encounter
--- OUTSIDE RECORDS SUMMARY | 2022-01-17 20:16 | XMS_ITS | Encounter Summary ---
:1945 Author Organization [facility] Address [address] [place] [address] Care Team Providers Name Role Phone Suhail [...] Depression Total Score: 3 05/13/2013 2:06 PM FOOD ADVISER documented as of this encounter Care Teams Net Developer Architect Relationship Specialty Start Date End Date Suhail Lemus M.D. PCP - General Family Medicine 09/19/[address] [place] [phone] documented as of this encounter
--- OUTSIDE RECORDS SUMMARY | 2022-01-17 20:16 | XMS_ITS | Encounter Summary ---
:1945 Author Organization [facility] Address [address] [place] [address] Care Team Providers Name Role Phone Suhail Lemus M.D. Primary Care Provider Encounter Details Date Type Department Care Team Description 04/29/2019 Orders Only Department of Jose Alberto Hernandes [facility] Ophthalmology in V. Retinal Vein [place], [place] [address] [facility] Occlusion With [address] [place], [place] [phone] (Primary Dx) [phone] Social History Tobacco Use Types Packs/Day Years [...] Do M.D. OPHTH PHOTOGRAPHY Performing Organization Address City/[facility]/ZIP Code Phon e Number OPHTHALMOLOGY IMAGING EXAM [...] Do M.D. OPHTH PHOTOGRAPHY Performing Organization Address City/[facility]/ZIP Code Phon e Number OPHTHALMOLOGY IMAGING EXAM [...] Depression Total Score: 3 05/13/2013 2:06 PM COSMETIC SALES documented as of this encounter Care Teams Payroll Accountant Relationship Specialty Start Date End Date Suhail Lemus M.D. PCP - General Family Medicine 09/19/[address] [place] [phone] documented as of this encounter
--- OUTSIDE RECORDS SUMMARY | 2022-01-17 20:16 | XMS_ITS | Encounter Summary ---
:1945 Author Organization [facility] Address [address] [place] [address] Care Team Providers Name Role Phone Suhail Lemus M.D. Primary Care Provider Encounter Details Date Type Department Care Team Description 05/28/2019 Ancillary Department of Dandy Do Procedure Ophthalmology in Poncho Reich M.D. Retinal Vein [place], [place] [address] [facility] Occlusion With [address] [place], [place] [phone] [phone] Social History Tobacco Use Types Packs/Day Years [...] Total Score: 3 05/13/2013 2:06 PM SUPERVISOR PAPER COATING documented as of this encounter Care Teams Director Of Retail Merchandising Relationship Specialty Start Date End Date Suhail Lemus M.D. PCP - General Family Medicine 09/19/[address] [place] [phone] documented as of this encounter
--- OUTSIDE RECORDS SUMMARY | 2022-01-17 20:16 | XMS_ITS | Encounter Summary ---
:1945 Author Organization [facility] Address [address] [place] [address] Care Team Providers Name Role Phone Suhail Lemus M.D. Primary Care Provider Reason for Visit Reason Comments Fall C/o fall that happened a few hours ago, L knee and L wrist pain. Encounter Details Date Type Department Care Team Description 10/01/2017 Emergency [facility] Valeria Lara , History Of Falling (Primary Dx); Department M.D. Pain Knee Left; [address] [place] [address] Pain Shoulder Left; [place] Pain Wrist Left [address] [place], [place] [phone] (Wo rk) Social History Tobacco Use [...] be sent through Care Everywhere.Knee Pain Adult Mxif-sm-Gixe (Vincentian)documented in this encounter Medications at Time of [...] of this encounter ED Notes Jeramie Sparks R.N. - 10/01/2017 7:20 PM CDT C/o fall [...] via private vehicle for mechanical fall. At [id number] hr, patient reports she was walking to [...] to evaluation today. History provided by: Patient clay digger used: No REVIEW OF SYSTEMS All other [...] visits. ED Course as of Oct 01 2200SatOct 01, [id number] VRADs interpretation: Left knee no [...] Laterality Modality Lower Extremity, TibFib, Musculoskeletal [facility] Left Digital Radiography Specimen (Source) Anatomical Collection [...] of opaque foreign body. Valeria Lara M.D. IMG DIAGNOSTIC IMAGING PROCE CHICHO DX Shoulder Left [...] LEFT 2+ VIEWS vRad: ??Findings concordant with laquita Covarrubias report. Procedure Note Juan Dee M.D. - [...] Valeria Lara M.D. IMG DIAGNOSTIC IMAGING PROCE CHICHO documented [...] mg (TYLENOL) 650 mg, oral, Once, On Sat10/01/17 at 1926, For 1 dose documented in this encounter Active and Recently Administered Medications Times are shown in CDT. Scheduled Medication Order 09/29/2017 09/30/2017 10/01/2017 acetaminophen tablet 650 mg (TYLENOL) (COMPLETED) 2030 (Given - Provider: Jeramie Sparks R.N.) 650 mg, oral, Once, e 10/01/17 at 1926, For 1 dose documented in this encounter Additional Health Concerns Assessment Noted Time PHQ-9 Depression Total Score: 3 05/13/2013 2:06 PM EVENTS MANAGER documented as of this encounter Care Teams Vp Hr Diversity Relationship Specialty Start Date End Date Suhail Lemus M.D. PCP - General Family Medicine 09/19/[address] [place] [phone] documented as of this encounter
--- OUTSIDE RECORDS SUMMARY | 2022-01-17 20:16 | XMS_ITS | Encounter Summary ---
:1945 Author Organization [facility] Address [address] [place] [address] Care Team Providers Name Role Phone Suhail Lemus M.D. Primary Care Provider Encounter Details Date Type Department Care Team Description 10/06/2017 Nurse Triage Department of [facility] Fide Dent R.N. Medicine, [facility], dc [place], [place] [address] [place] [phone] Social History Tobacco Use Types Packs/Day Years [...] Depression Total Score: 3 05/13/2013 2:06 PM RAG CUTTING MACHINE TENDER documented as of this encounter Care Teams Motor Vehicle Field Representative Relationship Specialty Start Date End Date Suhail Lemus M.D. PCP - General Family Medicine 09/19/[address] [place] [phone] documented as of this encounter
--- OUTSIDE RECORDS SUMMARY | 2022-01-17 20:16 | XMS_ITS | Encounter Summary ---
:1945 Author Organization [facility] Address [address] [place] [address] Care Team Providers Name Role Phone Suhail Lemus M.D. Primary Care Provider Reason for Visit Reason Comments Epistaxis (Nose Bleed) Pt presents with 30 minute e pisode of epistaxis which has currently stopped. Pt report s having 4 episodes this week and has been having epistaxis si nce a child. Encounter Details Date Type Department Care Team Description 01/03/2019 Emergency [facility] Yohan Jones, Epistaxis (Primary Dx) Department P.A.-C. [address] [place] [phone] (Wo rk) Social History Tobacco Use Types [...] be sent through Care Everywhere. Nosebleed Adult (Bulgarian)documented in this encounter Medications at Time of [...] Depression Total Score: 3 05/13/2013 2:06 PM CONSTRUCTION MGR documented as of this encounter Care Teams Pnp Relationship Specialty Start Date End Date Suhail Lemus M.D. PCP - General Family Medicine 09/19/[phone] [place] [phone] documented as of this encounter
--- OUTSIDE RECORDS SUMMARY | 2022-01-17 20:16 | XMS_ITS | Encounter Summary ---
:1945 Author Organization [facility] Address [address] [place] [address] Care Team Providers Name Role Phone Suhail Lemus M.D. Primary Care Provider Reason for Visit Reason Comments Med Refill Encounter Details Date Type Department Care Team Description 05/30/2018 Refill Department of Family Medicine, Suhail Ragland M.D. Med Refill [facility], [address] [address] [place] [address] [phone] Social History Tobacco Use Types Packs/Day Years [...] Strength: na Frequency: na Pharmacy (include Location): [facility] Pt is stating that [facility] will be sending a request for Dr. Lemus or Dr. Forbes to approve a tamiflu rx but the pt would like it sent to the [facility]. documented in this encounter Plan of Treatment Not on filedocumented as of this encounter Visit Diagnoses Not on filedocumented in this encounter Additional Health Concerns Assessment Noted Time PHQ-9 Depression Total Score: 3 05/13/2013 2:06 PM MACHINE SOLE LEVELER documented as of this encounter Care Teams Firearms Sales Associate Relationship Specialty Start Date End Date Suhail Lemus M.D. PCP - General Family Medicine 09/19/[address] [place] [phone] documented as of this encounter
--- OUTSIDE RECORDS SUMMARY | 2022-01-17 20:16 | XMS_ITS | Encounter Summary ---
:1945 Author Organization [facility] Address [address] [place] [address] Care Team Providers Name Role Phone Suhail Lemus M.D. Primary Care Provider Encounter Details Date Type Department Care Team Description 04/14/2018 Nurse Triage Department of [facility] Rosie Rosario R.N. Medicine, [facility], in [address] [place], [place] [address] [place] [address] [place] [address] [phone] Social History Tobacco Use Types Packs/Day Years [...] back to clinic scheduling per their request. CTOR OF COMMUNITY EDUCATION documented in this encounter Plan of Treatment Not on filedocumented as of this encounter Visit Diagnoses Not on filedocumented in this encounter Additional Health Concerns Assessment Noted Time PHQ-9 Depression Total Score: 3 05/13/2013 2:06 PM DIRECTOR OF COMMUNITY EDUCATION documented as of this encounter Care Teams Salicylic Acid Blender Relationship Specialty Start Date End Date Suhail Lemus M.D. PCP - General Family Medicine 09/19/[address] [place] [phone] documented as of this encounter
--- OUTSIDE RECORDS SUMMARY | 2022-01-17 20:16 | XMS_ITS | Encounter Summary ---
:1945 Author Organization [facility] Address [address] [place] [address] Care Team Providers Name Role Phone Suhail Lemus M.D. Primary Care Provider Reason for Visit Reason Comments Med Refill Encounter Details Date Type Department Care Team Description 02/03/2019 Refill Department of Family Medicine, Suhail Ragland M.D. Med Refill [facility], [place] [address] [address] [place], [place] [address] [phone] Social History Tobacco Use Types Packs/Day Years [...] Depression Total Score: 3 05/13/2013 2:06 PM WEB SITE ADMINISTRATOR documented as of this encounter Care Teams Ceramic Tiler Relationship Specialty Start Date End Date Suhail Lemus M.D. PCP - General Family Medicine 09/19/[address] [place] [phone] documented as of this encounter
--- OUTSIDE RECORDS SUMMARY | 2022-01-17 20:16 | XMS_ITS | Encounter Summary ---
:1945 Author Organization [facility] Address [address] [place] [address] Care Team Providers Name Role Phone Suhail Lemus M.D. Primary Care Provider Reason for Visit Reason Comments URI SOB, cough, nasal drainage, Thick mucous, discuss medicaiton, patient declined to weigh Appointment Request (Routine) - Closed Specialty Diagnoses / Procedures Referred By Contact Refer red To Contact Family Medicine Referral ID Status Reason Start Date Expiration Date Visits Requ ested Visits Authorized [id number] Closed 04/14/2018 04/14/2019 1 Encounter Details Date Type Department Care Team Description 04/14/2018 Office Visit Department of Suhail Hwang Si nusitis (Primary Dx) Medicine, Roin Szymanski M[facility], in [address] [phone] Social History Tobacco Use Types Packs/Day Years Used Date Smoking Tobacco: Never Smokeless Tobacco: Never Alcohol Use Standard Drinks/Week Comments No 0 (1 standard drink = 0.6 oz pure alcoho l) Sex Assigned at Date Recorded Not on file documented as of this encounter Last Filed Vital Signs Vital Sign Reading Time Taken Comments Blood Pressure 188/81 04/14/2018 10:39 AM CUFF MAKER Pulse 94 04/14/2018 10:39 AM CUFF MAKER Temperature 36.6 ??C (97.9 ??F) 04/14/2018 10:39 AM CUFF MAKER Respiratory Rate 24 04/14/2018 10:39 AM CUFF MAKER Oxygen Saturation 97% 04/14/2018 10:39 AM CUFF MAKER Inhaled Oxygen Concentration - - Weight - [...] at that time. She has been using qpzr-[id number]-sypthbs remedies with mild results. The following portions [...] understanding of the content. Bryce Lemus M.D. MAKER documented in this encounter Plan of Treatment Not on filedocumented as of this encounter Visit Diagnoses Diagnosis Sinusitis - Primary documented in this encounter Additional Health Concerns Assessment Noted Time PHQ-9 Depression Total Score: 3 05/13/2013 2:06 PM CUFF MAKER documented as of this encounter Care Teams Repairer Hairspring Relationship Specialty Start Date End Date Suhail Lemus M.D. PCP - General Family Medicine 09/19/[address] [place] [phone] documented as of this encounter
--- OUTSIDE RECORDS SUMMARY | 2022-01-17 20:16 | XMS_ITS | Encounter Summary ---
:[address] [facility] Address [address] [place] [address] Care Team Providers Name Role Phone Suhail Lemus M.D. 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 [facility] Procedures Intravitreal Injection Gonda Appt Order - OD - Right Eye [address] [place] [address] Referral ID Status Reason Start Date Expiration Date Visits V isits Requested Authorized [id number] Canceled 05/29/2019 05/28/2020 5 5 Encounter Details Date Type Department Care Team Description 06/15/2019 Hospital Encounter Department of [facility]mology in Poncho Reich M.D. Retinal Vein [place], [address] Occlusion With [place], [place] Macular Edema Right [address] [place] [address] [address] [address] [place] KUMAR [phone] (Work) [phone] Social History Tobacco Use Types Packs/Day Years [...] mg bevacizumab intravitreal injecti on (AVASTIN) ??[facility]: 54445-977-44, Lot: [id number], Expi ration date: 06/22/2019 ??Route: intravitreal, Site: [...] and given if needed. ??Understanding assessed by [facility] h-back. ??Follow-up appointments discussed and return schedule [...] Depression Total Score: 3 05/13/2013 2:06 PM BLEACHER LARD documented as of this encounter Care Teams Assistant Corporate Controller Relationship Specialty Start Date End Date Suhail Lemus M.D. PCP - General Family Medicine 09/19/[address] [place] [phone] documented as of this encounter
--- OUTSIDE RECORDS SUMMARY | 2022-01-17 20:17 | XMS_ITS | Encounter Summary ---
:1945 Author Organization [facility] Address [address] [place] [address] Care Team Providers Name Role Phone Unavailable Primary Care Provider Unavailable Encounter Details Date Type Department Care Team Description 01/09/2010 Hospital Encounter [facility] Marc Martinez, INPT/OBSRV M.D. [address] [place] [phone] (Wo rk) Social History Tobacco Use Types Packs/Day Years Used Date Smoking Tobacco: Never Assessed Sex Assigned at Date Recorded Not on file documented as of this encounter Plan of Treatment Not on filedocumented as of this encounter Visit Diagnoses Not on filedocumented in this encounter
--- OUTSIDE RECORDS SUMMARY | 2022-01-17 20:17 | XMS_ITS | Encounter Summary ---
:[address] [facility] Address [address] [place] [address] Care Team Providers Name Role Phone Unavailable Primary Care Provider Unavailable Encounter Details Date Type Department Care Team Description 10/19/2009 Hospital Encounter [facility] INPT/OBSRV Jd Leyva M.D. [address] [facility], [address] [place] [address] (Wo rk) Social History Tobacco Use Types Packs/Day Years Used Date Smoking Tobacco: Never Assessed Sex Assigned at Date Recorded Not on file documented as of this encounter Plan of Treatment Not on filedocumented as of this encounter Visit Diagnoses Not on filedocumented in this encounter
--- OUTSIDE RECORDS SUMMARY | 2022-01-17 20:17 | XMS_ITS | Encounter Summary ---
:1945 Author Organization [facility] Address [address] [place] [address] Care Team Providers Name Role Phone Unavailable Primary Care Provider Unavailable Encounter Details Date Type Department Care Team Description 12/28/2009 Hospital Encounter [facility] INPT/OBSRV Trenton Pepper M.D. [address], [place], [place] [address] (Wo rk) Social History Tobacco Use Types Packs/Day Years Used Date Smoking Tobacco: Never Assessed Sex Assigned at Date Recorded Not on file documented as of this encounter Plan of Treatment Not on filedocumented as of this encounter Visit Diagnoses Not on filedocumented in this encounter
--- OUTSIDE RECORDS SUMMARY | 2022-01-17 20:17 | XMS_ITS | Encounter Summary ---
:1945 Author Organization [facility] Address [address] [place] [address] Care Team Providers Name Role Phone Unavailable Primary Care Provider Unavailable Encounter Details Date Type Department Care Team Description 07/07/2009 Hospital Encounter [facility] Marc Martinez, INPT/OBSRV M.D. [address] [place] [phone] (Wo rk) Social History Tobacco Use Types Packs/Day Years Used Date Smoking Tobacco: Never Assessed Sex Assigned at Date Recorded Not on file documented as of this encounter Plan of Treatment Not on filedocumented as of this encounter Visit Diagnoses Not on filedocumented in this encounter
--- OUTSIDE RECORDS SUMMARY | 2022-01-17 20:17 | XMS_ITS | Encounter Summary ---
:1945 Author Organization [facility] Address [address] [place] [address] Care Team Providers Name Role Phone Unavailable Primary Care Provider Unavailable Encounter Details Date Type Department Care Team Description 05/10/2014 - Hospital Encounter HX [facility] ED Nabila Mcfadden 05/11/2014 Vinicius Kinney [address] [place] [address] [phone] (wo rk) Social History Tobacco Use Types Packs/Day Years Used Date Smoking Tobacco: Never Assessed Sex Assigned at Date Recorded Not on file documented as of this encounter Last Filed Vital Signs Vital Sign Reading Time Taken Comments Blood Pressure 184/73 05/10/2014 11:37 PM [facility] Pulse 85 05/10/2014 11:22 PM [facility] [facility] Temperature - - Respiratory Rate 18 05/10/2014 11:22 PM [facility] [facility] Oxygen Saturation - - Inhaled Oxygen Concentration - - Weight - - Height - - Body Mass Index - - documented in this encounter Discharge Summaries Bernardino Bass R.N. - 05/11/2014 1:53 AM CST ED Discharge Instructions [address] [address] Name: NOVA PEDERSON Date of : 1945 12:00 AM Visit Date: 05/10/2014 10:44 PM [facility] Number: [id number] Address: [address] [place] [phone] Primary Care Provider: PCP, JERICHO - BYRON IMPORTANT: [facility] in [place] would like to thank you for allowing us to assist you with your healthcare needs. The following includes patient education materials and informationregarding your injury/illness. Diagnosis: Epistaxis Follow-Up Instructions: With: Address: When: UNASSIGNED PCP Within As Needed Comments: With: Address: When: follow up as needed Within As Needed Comments: Your Upcoming Appointments: Date Time Location Provider 05/21/2014 12:30 [facility] Mariah SEGOVIA, Delano Stauffer Patient Education Materials: [id number] NOSEBLEED [Adult] Bleeding from the nose most [...] Shortness of breath or trouble breathing ?? [id number] [place] [address]. All rights reserved. This information is not [...] to take those medications. NOVA PEDERSON or designee has reviewed the home medications you have [...] nurse or physician. Patient Signature or Responsible Libertarian/Relationship Date Time Provider Signature Date Time Medication [...] nurse or physician. Patient Signature or Responsible Libertarian/Relationship Date Time Provider Signature Date Time This document has images extracted. Please consider using [employer] for all your patient education needs. Source: [facility] POWERTRELYS Document Id: [id number] [employer] Bernardino Bass R.N. - 05/11/2014 1:52 AM CST ED Depart Summary [facility] Emergency Department Clinical Discharge Summary PERSON INFORMATION Name NOVA PEDERSON Age 68 Years 1945 12:00 AM Sex Female Language Wallisian PCP PCP, UNASSIGNED - [place] Marital Status Single N [id number] [id number] Reason Epistaxis; Bloody nose Specialty Enc Type Emergency Med Service Emergency Medicine Referred by Track Group [facility] ED Discharge 05/11/2014 12:05 AM Tracking Id [id number] Checkout 05/11/2014 12:05 AM Checkin 05/10/2014 10:44 PM Acuity 4 -Less Urgent Dispo Type * Discharged to Home or Self Care Arrival 05/10/2014 10:44 PM Reg Status Complete LOS 000 01:21 Address: [address] [place] [phone] Comment: PROVIDER INFORMATION Provider Role Provider Contact Time BERNARDINO BASS ED Nurse 05/10/14 22:57 NABILA MCFADDEN MD ED Provider 05/10/14 22:58 DIAGNOSIS Epistaxis Comment: PATIENT EDUCATION INFORMATION Instructions: EPISTAXIS (Adult) Follow up: With: Address: When: UNASSIGNED PCP Within As Needed Comments: With: Address: When: follow up as needed Within As Needed Comments: [facility] Document Id: [id number] [employer] documented in this encounter Medications at Time [...] ED Pain Assessment Entered On: 05/10/2014 23:19 [facility] Performed On: 05/10/2014 23:19 [employer] by BERNARDINO BASS Pain Assessment Pain Symptoms : Yes BERNARDINO BASS - 05/10/2014 23:19 [employer] Source: [employer] Document Id: [id number] [employer]!3 [employer] Bernardino Bass R.N. - 05/10/2014 11:18 PM CST ED Disposition Summary ED Disposition Summary Entered On: 05/10/2014 23:19 [employer] Performed On: 05/10/2014 23:18 [employer] by BERNARDINO BASS ED Disposition Summary Accompanied By : Sibling Mode of Discharge : Ambulatory Transportation : Private vehicle Printed Discharge Instructions Given to Patient : Yes Patient Status at Discharge from ED : Improved BERNARDINO BASS - 05/10/2014 23:18 [facility] [facility] Document Id: [id number] [employer]!7 [employer] Nabila Mcfadden Jr., M.D. - 05/10/2014 11:14 PM CST Epistaxis Document Contains Addenda Addendum by NABILA MCFADDEN MD on 10 May 2014 23:51 [facility] pt noted to be very hypertensive so bmp performed and lisinopril 20/hctz 12.5 started and pt advised to follow up in clinic later this week in 2-3 days. Electronically Signed By: NABILA MCFADDEN MD On: 05/10/2014 11:19 PM Modified by and Electronically Signed by: NABILA MCFADDEN MD On: 05/10/2014 11:51 PM Epistaxis Patient: NOVA PEDERSON Age: 68 years Sex: Female : 1945 Author: NABILA MCFADDEN MD Attachments: None Basic Information Additional information: Chief Complaint from Nursing Triage Note : Chief Complaint Description 05/10/2014 23:06 [facility] Chief Complaint Description see triage assessment 05/10/2014 22:57 [facility] Chief Complaint Description Patient comes to the [...] Examination Vital Signs: (Date Range: 05/09/2014 0:00 [employer] [facility] - 05/10/2014 23:15 [employer]). General: Alert and no acute distress. Skin: [...] if persistent problem Electronically Signed By: NABILA MCFADDEN MD On: 05/10/2014 11:19 PM Source: [facility]OWERCHART Document Id: [id number]} [employer] Bernardino Bass, R.N. - 05/10/2014 11:06 PM CST ED Primary Assessment Document Has Been Updated ED Primary Assessment Entered On: 05/10/2014 23:14 [employer] Performed On: 05/10/2014 23:06 [employer] by BERNARDINO BASS Reason For Visit (As Of: 05/10/2014 23:14:14 [employer]) Diagnoses(Active) Epistaxis Date: 05/10/2014 ; Diagnosis Type: Reason For Visit ; Confirmation: Complaint of ; Clinical Dx: Epistaxis ; Classification: Medical ; Clinical Service: Non-Specified ; Code: PNED ; Probability: 0 ; Diagnosis Code: [id number] Epistaxis Date: 05/10/2014 ; Diagnosis Type: Discharge ; Confirmation: Confirmed ; Clinical Dx: Epistaxis ; Classification: Medical ; Clinical Service: Non- Specified ; Code: ICD-9-CM ; Probability: 0 ;Diagnosis Code: 784.7 Triage Chief Complaint Description : see triage assessment Mode of Arrival ED : Private vehicle, Ambulatory Track : Medical Languages : Wallisian Treatments Prior to Arrival : None Is Patient Female and 13-50 no hysterectomy : No MADELYN BASS05/10/2014 23:06 [facility] Pain Assessment Pain Symptoms : Yes GORAN 05/10/2014 23:06 [facility] ID Screen Travel Within Last 21 Days : No MADELYN BASS05/10/2014 23:06 [facility] Respiratory Airway : Patent Respirations : Unlabored Respiratory Pattern : Regular GORAN 05/10/2014 23:06 [facility] Cardiovascular Heart Rhythm : Regular Skin Color : Normal for ethnicity Skin Description : Dry Skin Temperature : Warm MADELYN BASS05/10/2014 23:06 [facility] Neurological Last Well Time Known : Not applicable Level of Consciousness : Alert Orientation : Oriented x 3 Characteristics of Speech : Appropriate for age MADELYN BASS05/10/2014 23:06 [facility] ED Psychosocial Affect/Behavior : Calm Domestic Abuse Concerns : None MADELYN BASS05/10/2014 23:06 [facility] Gastrointestinal Nutrition ED : Adequate GORAN 05/10/2014 23:06 [facility] Musculoskeletal Fall Prevention Education Provided : MADELYN METCALF05/10/2014 23:06 [facility] Social Habits Tobacco Use/Currently Using : No Smoking Status : Former smoker BERNARDINO BASS 05/10/2014 23:06 [facility] Alcohol Use Grid Alcohol Use : No MADELYN BASS05/10/2014 23:06 [facility] [employer] Recreational Drug Use Grid Drug Use : None BERNARDINO BASS 05/10/2014 23:06 [employer] Source: [facility] POWERCHART Document Id: [id number] [employer]!42 [employer] Bernardino Bass R.N. - 05/10/2014 10:57 PM CST ED Triage Assessment Document Has Been Updated ED Triage Assessment Entered On: 05/10/2014 23:03 [employer] Performed On: 05/10/2014 22:57 [employer] by BERNARDINO BASS Reason For Visit (As Of: 05/10/2014 23:03:37 [facility]) Diagnoses(Active) Epistaxis Date: 05/10/2014 ; Diagnosis Type: Reason For Visit ; Confirmation: Complaint of ; Clinical Dx: Epistaxis ; Classification: Medical ; Clinical Service: Non-Specified ; Code: PNED ; Probability: 0 ; Diagnosis Code: [id number] Triage Chief Complaint Description : Patient comes to the ED with complaints of a nosebleed Information Given By : Patient Accompanied By : Sibling Mode of Arrival ED : Private vehicle, Ambulatory Track : Medical Languages : Wallisian Treatments Prior to Arrival : None Is Patient Female and 13-50 no hysterectomy : No BERNARDINO BASS - 05/10/2014 22:57 [employer] Pain Assessment Pain Symptoms : Yes BERNARDINO BASS - 05/10/2014 22:57 [facility] Pain Scale Pain Scale Verbal 0-10 : Open BERNARDINO BASS - 05/10/2014 22:57 [facility] Pain Pain Assessment Grid Pain 1 Location : Other: headache Time Pattern : Acute Onset : Gradual Quality : Aching Pain Radiation : No BERNARDINO BASS - 05/10/2014 22:57 [facility] ED Physician Notification Time ED Physician Notification Time : 05/10/2014 23:00 [employer] BERNARDINO BASS - 05/10/2014 22:57 [facility] [facility] JOHANN DCP GENERIC CODE Tracking Acuity : 4 -Less Urgent Tracking Group : [facility] ED BERNARDINO BASS - 05/10/2014 22:57 [facility] Allergy (As Of: 05/10/2014 23:03:37 [employer]) Allergies (Active) NKA Estimated Onset Date: Unspecified ; Created By: BERNARDINO BASS; Reaction Status: Active ; Category: Drug ; Substance: NKA ; Type: Allergy ; Updated By: BERNARDINO BASS; Reviewed Date: 05/10/2014 22:59CST ID Screen Travel Within Last 21 Days : No BERNARDINO BASS - 05/10/2014 22:57 [employer] Immunizations Immunizations Current : Unknown Last Tetanus : Unknown Pneumovac : None Influenza : None BERNARDINO BASS - 05/10/2014 22:57 [facility] [facility] Document Id: [id number] [employer]!35 [employer] documented in this encounter Miscellaneous Notes Miscellaneous - Conversion, Historical Provider Ser - 05/11/2014 12:05 AM [facility] Coding Summary-Paper Based CODING DATE: 05/17/2014 FINAL [place] [facility] STATUS: * Discharged to Home or Self Care PAYOR: Medicare ADMIT DX: 784.7 Epistaxis REASON FOR VISIT DX: 784.7 Epistaxis FINAL DX: PRINCIPAL: 784.7 Epistaxis SECONDARY: 401.9 Unspecified Essential Hypertension PROCEDURES DOCTOR NAME DATE 17529 Control nasal hemorrhage, NABILA MCFADDEN V005/10/2014 anterior, simple (limited cautery and/or packing) [...] MEDLEY Date Saved: 05/17/2014 07:55 am Source: [employer] Document Id: [id number] Miscellaneous - Bernardino Bass RSariahNSariah - 05/10/2014 11:19 PM CST Valuables/Belongings Valuables/Belongings Entered On: 05/10/2014 23:19 [employer] Performed On: 05/10/2014 23:19 [employer] by BERNARDINO BASS Valuables/Belongingchepe Home Medication Disposition : None brought in with patient BERNARDINO BASS - 05/10/2014 23:19 [employer] [facility] Document Id: [id number] [employer]!3 [employer] Miscellaneous - Bernardino Bass R.N. - 05/10/2014 11:19 PM CST Facility Charge Ticket 2.0 11.0 DX Facility Charge Ticket 2.0 11.0 DX Entered On: 05/10/2014 23:19 [employer] Performed On: 05/10/2014 23:19 [employer] by BERNARDINO BASS Facility Charge Ticket 2.0 [...] 23:06,BERNARDINO BASS ED Pain Assessment,05/10/14 23:19,BERNARDINO BASS Lynaj Nursing Assessment : Triage and 1-2 nursing assessments Lynx Disposition : Discharge Lynx Total Points with Diagnosis Control : 5 Lynx Visit Level : 03849 Level 3 Treatments Prior to Arrival : None BERNARDINO BASS - 05/10/2014 23:19 [employer] Source: [facility] POWERCHART Document Id: [id number] [employer]!17 [employer] documented in this encounter Plan of Treatment Not on filedocumented as of this encounter Procedures Procedure Name Priority Date/Time Associated Diagnosis Comme nts BASIC METABOLIC Routine 05/10/2014 11:55 AM Resul ts for this PANEL, S/P [facility] procedure are i n the results section. documented in this encounter Results BMP (Basic Metabolic Panel) (05/10/2014 11:55 AM [facility]) P athologist Signature Anion Gap 12 10 [...] POWERCHART MMOLL HXeGFR (MDRD) >60 >=60 POWERCHART [id number] eGFR >60 >=60 POWERCHART Black/ [id number] Libyan Specimen (Source) Anatomical Collection Method Collection Time Re ceived Time Location / / Volume Laterality Blood 05/10/2014 11:55 AM [facility] Nabila Mcfadden Jr., M.D. LAB BLOOD ADD-ON Performing Organization Address City/State/ZIP Code Phon e Number POWERCHART documented in this encounter Visit Diagnoses Not on filedocumented in this encounter Additional Health Concerns Assessment Noted Time PHQ-9 Depression Total Score: 3 05/13/2013 2:06 PM [facility] documented as of this encounter
--- OUTSIDE RECORDS SUMMARY | 2022-01-17 20:17 | XMS_ITS | Encounter Summary ---
:1945 Author Organization [facility] Address [address] [place] [address] Care Team Providers Name Role Phone Unavailable Primary Care Provider Unavailable Encounter Details Date Type Department Care Team Description 09/13/2003 Hospital Encounter HX NO MAPPING Provider, Historical Social History Tobacco Use Types Packs/Day Years Used Date Smoking Tobacco: Never Assessed Sex Assigned at Date Recorded Not on file documented as of this encounter Miscellaneous Notes Miscellaneous - Conversion, Yara Provider Ser - 09/13/2003 6:15 AM CDT [id number] Source: [facility] [employer] Document Id: [id number] documented in this encounter Plan of Treatment Not on filedocumented as of this encounter Visit Diagnoses Not on filedocumented in this encounter
--- OUTSIDE RECORDS SUMMARY | 2022-01-17 20:17 | XMS_ITS | Encounter Summary ---
:1945 Author Organization [facility] Address [address] [place] [address] Care Team Providers Name Role Phone Suhail Lemus M.D. Primary Care Provider Encounter Details Date Type Department Care Team Description 07/28/2012 Historical Ophthalmology RST OPH Agnieszak Harrison M.D. 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 PCP - General Family Medicine 09/19/[address] [place] [phone] documented as of this encounter
--- OUTSIDE RECORDS SUMMARY | 2022-01-17 20:17 | XMS_ITS | Encounter Summary ---
:1945 Author Organization [facility] Address [address] [place] [address] Care Team Providers Name Role Phone Unavailable Primary Care Provider Unavailable Encounter Details Date Type Department Care Team Description 08/28/2014 Hospital Encounter HX [facility] ED Jf Hale Jr., M.D. [address], [place] [address] (Wo rk) Social History Tobacco [...] Body Mass Index 57.72 05/13/2013 1:39 PM SENIOR PATIENT ACCOUNT REPRESENTATIVE documented in this encounter Discharge Summaries Carolina Ferris R.N. - 08/28/2014 10:37 PM CDT ED Discharge Instructions [address] [address] Name: NOVA PEDERSON Date of : 1945 12:[birth year] AM Visit Date: 08/28/2014 9:24 PM [facility] Number: [id number] Address: [address] [place] [phone] Primary Care Provider: JERICHO ORTIZ IMPORTANT: [facility] in [place] would like to thank you for allowing [...] -- Rapid or irregular heartbeat, fainting ?? [id number] [facility], [address] [place] [address]. All rights reserved. This information is not [...] or more reflects severe (morbid) obesity. ?? [phone] [facility], [address] [place] [address]. All rights reserved. This information is not [...] two times a day *sodium chloride nasal ([place] Saline 0.65% nasal solution) 2 drop(s) Nasal every 2 hours *sodium chloride nasal ([place] Saline 0.65% nasal gel) 1 spray(s) Nasal [...] arrange a ride home with a responsible republican. MARY CARMEN Bell ANNA CATHERINE , or responsible republican have received this information and my questionshave been answered. I have discussed any challenges I see with this plan with the nurse or physician. Patient Signature or Responsible Republican/Relationship Date Time Provider Signature Date Time Medication [...] arrange a ride home with a responsible republican. I, NOVA PEDERSON , or responsible republican have received this information and my questionshave been answered. I have discussed any challenges I see with this plan with the nurse or physician. Patient Signature or Responsible Republican/Relationship Date Time Provider Signature Date Time This document has images extracted. Please consider using [employer]rik for all your patient education needs. Source: [facility] POWERCHART Document Id: [id number] Carolina Ferris R.N. - 08/28/2014 10:37 PM CDT ED Depart Summary [facility] Emergency Department Clinical Discharge Summary PERSON INFORMATION Name NOVA PEDERSON Age 68 Years 1945 12:00 AM Sex Female Language Gibraltarian PCP PCP, UNASSIGNED - [place] Marital Status Single [facility] [id number] [id number] Reason Shortness of breath; Shortness of breath; Shortness of Breath Specialty Enc Type Emergency Med Service Emergency Medicine Referred by Track Group [facility] ED Discharge 08/28/2014 10:30 PM Tracking Id [id number] Checkout 08/28/2014 10:30 PM Checkin 08/28/2014 9:24 PM Acuity 3 -Urgent Dispo Type * Discharged to Home or Self Care Arrival 08/28/2014 9:24 PM Reg Status Complete LOS 000 01:06 Address: [address] [place] [address] [phone] Comment: PROVIDER INFORMATION Provider Role Provider Contact [...] CA PCP Within As Needed Comments: Source: [facility] Document Id: [id number] documented in this encounter Medications at Time [...] ELKINS RN - 08/28/2014 22:06 CDT Source: [facility] Document Id: [id number] CDT!6 Katie Elkins R.N. - 08/28/2014 10:06 PM CDT ED Pain Assessment ED Pain Assessment Entered On: 08/28/2014 22:06 CDT Performed On: 08/28/2014 22:06 CDT by KATIE ELKINS RN Pain Assessment Pain Symptoms : No KATIE ELKINS RN - 08/28/2014 22:06 CDT Source: [facility] POWERCHART Document Id: [id number] CDT!3 Darnell Hale Jr., M.D. - 08/28/2014 [...] felt shorter of breath due to humidity. [place] she was going to , friend brought [...] cleared, Discharged: time 08/28/2014 22:09:00. Prescriptions: Prescription [facility]: Ativan 0.5 mg oral tablet (Prescribe): [...] worsening symptoms. . Electronically Signed By: DARNELL HALE MD On: 08/28/2014 10:17 PM Source: [facility] POWERCHART Document Id: [id number]} Katie Elkins RSariahN. - 08/28/2014 9:34 PM CDT ED Primary [...] Nursing ; Code: 784.7 ; Contributor System: 8tracks RadioChart ; Last Updated: 05/13/2014 6:25 SENIOR PATIENT ACCOUNT REPRESENTATIVE ; Life Cycle Date: 05/13/2014 ; Life Cycle Status: Active ; Responsible Provider: ANGELA ZULETA RN; Vocabulary: ICD-9-CM Hypertension (HTN) NOS (ICD-9-CM :401.9 ) Name of Problem: Hypertension (HTN) NOS ; Recorder: NELLY SHAH MD; Confirmation: Confirmed ; Classification: Medical ; Code: 401.9 ; Contributor System: 8tracks RadioChart ; Last Updated: 05/26/2014 9:23 CDT ; Life Cycle Date: 05/26/2014 ; Life Cycle Status: Active ; Vocabulary: ICD-9-CM Rosacea NOS (ICD-9-CM :695.3 ) Name of Problem: Rosacea NOS ; Recorder: NELLY SHAH MD; Confirmation: Confirmed ; Classification: Medical ; Code: 695.3 ; Contributor System: 8tracks RadioChart ; Last Updated: 05/27/2014 12:05 CDT ; Life Cycle Date: 05/27/2014 ; Life Cycle Status: Active ; Vocabulary: ICD-9-CM Diagnoses(Active) Shortness of breath Date: 08/28/2014 ; Diagnosis Type: Reason For Visit ; Confirmation: Complaint of; Clinical Dx: Shortness of breath ; Classification: Medical ; Clinical Service: Non-Specified ; Code: PNED ; Probability: 0 ; Diagnosis Code: [id number] Triage Chief Complaint Description : see triage Mode of Arrival ED : Private vehicle, Ambulatory Track : Medical Languages : Gibraltarian Treatments Prior to Arrival : None Is [...] 08/28/2014 21:34 CDT Gastrointestinal Nutrition ED : Adequate KATIE ELKINS RN - 08/28/2014 21:34 CDT Musculoskeletal Fall Prevention Education Provided : NA KATIE ELKINS RN - 08/28/2014 21:34 CDT Social Habits Tobacco Use/Currently Using : No Smoking Status : Former smoker KATIE ELKINS RN - 08/28/2014 21:34 CDT Alcohol Use Grid Alcohol Use : No KATIE ELKINS RN - 08/28/2014 21:34 CDT Recreational Drug Use Grid Drug Use : None KATIE ELKINS RN - 08/28/2014 21:34 CDT Source: [facility] POWERCHART Document Id: [id number] CDT!50 Katie Elkins R.N. - 08/28/2014 9:32 [...] Nursing ; Code: 784.7 ; Contributor System: 8tracks RadioChart ; Last Updated: 05/13/2014 6:25 SENIOR PATIENT ACCOUNT REPRESENTATIVE ; Life Cycle Date: 05/13/2014 ; Life Cycle Status: Active ; Responsible Provider: ANGELA ZULETA RN; Vocabulary: ICD-9-CM Hypertension (HTN) NOS (ICD-9-CM :401.9 ) Name of Problem: Hypertension (HTN) NOS ; Recorder: NELLY SHAH MD; Confirmation: Confirmed ; Classification: Medical ; Code: 401.9 ; Contributor System: 8tracks RadioChart ; Last Updated: 05/26/2014 9:23 CDT ; Life Cycle Date: 05/26/2014 ; Life Cycle Status: Active ; Vocabulary: ICD-9-CM Rosacea NOS (ICD-9-CM :695.3 ) Name of Problem: Rosacea NOS ; Recorder: NELLY SHAH MD; Confirmation: Confirmed ; Classification: Medical ; Code: 695.3 ; Contributor System: [employer] ; Last Updated: 05/27/2014 12:05 CDT ; Life Cycle Date: 05/27/2014 ; Life Cycle Status: Active ; Vocabulary: ICD-9-CM Diagnoses(Active) Shortness of breath Date: 08/28/2014 ; Diagnosis Type: Reason For Visit ; Confirmation: Complaint of; Clinical Dx: Shortness of breath ; Classification: Medical ; Clinical Service: Non-Specified ; Code: PNED ; Probability: 0 ; Diagnosis Code: [id number] Triage Chief Complaint Description : Pt presents to ER with chronic SOB but today and humidty harder to take a deep breath. Information Given By : Patient Accompanied By : Sibling Mode of Arrival ED : Private vehicle, Ambulatory Track : Medical Languages : Gibraltarian Vital Signs Assessed : Yes Treatments Prior [...] Acuity : 3 -Urgent Tracking Group : [facility] KATIE ELKINS RN - 08/28/2014 21:32 [...] ELKINS RN - 08/28/2014 21:32 CDT Source: [facility] Document Id: [id number] CDT!41 documented in this encounter Miscellaneous Notes Miscellaneous - Jered Vilchis RHumberto - 08/29/2014 7:18 AM CDT Communication Note [...] elsewhere. Response : Patient verbalized understanding. Contact #[phone] JERED VILCHIS RN - 08/29/2014 7:18 CDT Source: [facility] Document Id: [id number] CDT!5 Miscellaneous - Carolina Ferris R.N. - 08/28/2014 10:36 PM CDT Valuables/Belongings Valuables/Belongings Entered On: 08/28/2014 22:36 CDT Performed On: 08/28/2014 22:36 CDT by CAROLINA FERRIS RN Valuables/Belongings Belongings Sent Home With : All belongings sent home with patient Home Medication Disposition : None brought in with patient CAROLINA FERRIS RN - 08/28/2014 22:36 CDT Source: [facility] [employer] Document Id: [id number] CDT!4 Miscellaneous - Conversion, Historical Provider Ser - 08/28/2014 10:30 PM CDT Coding Summary-Paper Based CODING DATE: 09/08/2014 FINAL [facility] STATUS: * Discharged to Home or Self [...] MEDLEY Date Saved: 09/08/2014 09:49 am Source: [facility] Document Id: [id number] Miscellaneous - Katie Elkins R.N. - 08/28/2014 10:06 PM CDT Valuables/Belongings Valuables/Belongings Entered On: 08/28/2014 22:06 CDT Performed On: 08/28/2014 22:06 CDT by KATIE ELKINS RN Valuables/Belongingchepe Home Medication Disposition : None brought in with patient KATIE ELKINS RN - 08/28/2014 22:06 CDT Source: [facility] [employer] Document Id: [id number] CDT!3 Miscellaneous - Katie Elkins R.N. - 08/28/2014 9:24 [...] Nursing Notes ED Primary Assessment,08/28/14 21:34,KATIE ELKINS CIVIL ENGINEERING PROFESSOR Pain Assessment,08/28/14 22:06,KATIE ELKINS RN Lynx Nursing Assessment : Triage and 1-2 nursing assessments Lynx Disposition : Discharge Lynx Total Points with Diagnosis Control : 11 Lynx Visit Level : 11110 Level 4 Treatments Prior to Arrival : None KATIE ELKINS RN - 08/28/2014 22:06 CDT Source: [facility] [employer] Document Id: [id number] CDT!17 Miscellaneous - Carolina Ferris R.N. - 08/28/2014 9:24 [...] Control : 11 Lynx Visit Level : 09820 Level 4 Treatments Prior to Arrival : None CAROLINA FERRIS RN - 08/28/2014 22:36 CDT [facility] Document Id: [id number] CDT!18 documented in this encounter Plan of Treatment Not on filedocumented as of this encounter Visit Diagnoses Not on filedocumented in this encounter Additional Health Concerns Assessment Noted Time PHQ-9 Depression Total Score: 3 05/13/2013 2:06 PM SENIOR PATIENT ACCOUNT REPRESENTATIVE documented as of this encounter
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
--- OUTSIDE RECORDS SUMMARY | 2022-01-17 20:17 | XMS_ITS | Encounter Summary ---
:1945 Author Organization [facility] Address [address] [place] [address] Care Team Providers Name Role Phone Unavailable [...]
--- OUTSIDE RECORDS SUMMARY | 2022-01-17 20:17 | XMS_ITS | Encounter Summary ---
:1945 Author Organization [facility] Address [address] [place] [address] Care Team Providers Name Role Phone Unavailable Primary Care Provider Unavailable Encounter Details Date Type Department Care Team Description 07/07/[address] [facility] Marc Martinez, INPT/OBSRV M.D. [address] [place] [phone] (Wo rk) Social History Tobacco Use Types Packs/Day Years Used Date Smoking Tobacco: Never Assessed Sex Assigned at Date Recorded Not on file documented as of this encounter Plan of Treatment Not on filedocumented as of this encounter Visit Diagnoses Not on filedocumented in this encounter
--- OUTSIDE RECORDS SUMMARY | 2022-01-17 20:17 | XMS_ITS | Encounter Summary ---
:1945 Author Organization [facility] Address [address] [place] [address] Care Team Providers Name Role Phone Unavailable Primary Care Provider Unavailable Encounter Details Date Type Department Care Team Description 08/23/2009 Hospital Encounter HX [facility] INPT/OBSRV Jd Leyva M.D. [address] [place] [address] (Wo rk) Social History Tobacco Use Types Packs/Day Years Used Date Smoking Tobacco: Never Assessed Sex Assigned at Date Recorded Not on file documented as of this encounter Plan of Treatment Not on filedocumented as of this encounter Visit Diagnoses Not on filedocumented in this encounter
--- OUTSIDE RECORDS SUMMARY | 2022-01-17 20:17 | XMS_ITS | Encounter Summary ---
:1945 Author Organization [facility] Address [address] [place] [address] Care Team Providers Name Role Phone Unavailable Primary Care Provider Unavailable Encounter Details Date Type Department Care Team Description 04/06/2015 Hospital Encounter HX [facility] Ellen Ba M.D. [address], [place] [address] (Wo rk) Social History Tobacco Use Types Packs/Day Years Used Date Smoking Tobacco: Never Assessed Sex Assigned at Date Recorded Not on file documented as of this encounter Last Filed Vital Signs Vital Sign Reading Time Taken Comments Blood Pressure 160/86 04/06/2015 10:09 AM MASTER ESTHETICIAN Pulse 88 04/06/2015 10:09 AM MASTER ESTHETICIAN Temperature - - Respiratory Rate 20 04/06/2015 10:09 AM MASTER ESTHETICIAN Oxygen Saturation - - Inhaled Oxygen Concentration - - Weight 137 kg (301 lb 2.4 oz) 04/06/2015 10:09 AM MASTER ESTHETICIAN Height - - Body Mass Index 54.79 [...] Ba M.D. - 04/06/2015 9:39 AM CST [id number] REVISION HISTORY April 07, 2015 at 9:30 [...] RESULTS Sodium Lvl 139.0 mM/L 04/06/2015 11:02 MASTER ESTHETICIAN Potassium Lvl 3.8 mmol/L 04/06/2015 11:02 MASTER ESTHETICIAN Chloride 103 mmol/L 04/06/2015 11:02 MASTER ESTHETICIAN CO2 29.0 mmol/L 04/06/2015 11:02 MASTER ESTHETICIAN AGAP 7 mmol/L 04/06/2015 11:02 MASTER ESTHETICIAN (Low) Alkaline Phosphatase 114 U/L 04/06/2015 11:02 MASTER ESTHETICIAN Glucose Lvl 143 mg/dL 04/06/2015 11:02 MASTER ESTHETICIAN (High) Creatinine 0.73 mg/dL 04/06/2015 11:02 MASTER ESTHETICIAN EGFR (MDRD) >60 mL/min/1.73m2 04/06/2015 11:02 MASTER ESTHETICIAN EGFR (MDRD) >60 mL/min/1.73m2 04/06/2015 11:02 MASTER ESTHETICIAN BUN 16 mg/dL 04/06/2015 11:02 MASTER ESTHETICIAN Calcium Lvl 9.0 mg/dL 04/06/2015 11:02 MASTER ESTHETICIAN Protein Total 6.6 g/dL 04/06/2015 11:02 MASTER ESTHETICIAN Albumin Lvl 3.8 g/dL 04/06/2015 11:02 MASTER ESTHETICIAN Globulin 2.8 g/dL 04/06/2015 11:02 MASTER ESTHETICIAN AST 23 unit/L 04/06/2015 11:02 MASTER ESTHETICIAN ALT 29 unit/L 04/06/2015 11:02 MASTER ESTHETICIAN Bili Total 0.2 mg/dL 04/06/2015 11:02 MASTER ESTHETICIAN DIAGNOSTIC RESULTS IMPRESSION/REPORT/PLAN 1. Xerosis Ordered: emollients, topical, 1 óscar, Topical, 2xDay, # 200 gm, 11 Refill(s), Acute, Pharmacy: [facility] 2. Pruritus Generalized likely dx is dry skin. would treat for scabies if a week of therapy for xerosis does not yield results. Ordered: emollients, topical, 1 óscar, Topical, 2xDay, # 200 gm, 11 Refill(s), Acute, Pharmacy: [facility] hydrOXYzine, 50 mg = 2 cap(s), PO, 4xDay, PRN itching, # 50 cap(s), 2 Refill(s), Acute, Pharmacy: [facility] OV Est Pt Level 4 - 28419 - 25 min 3. Rhinitis Chronic Referral [...] BA MD On: 04/11/2015 08:06 AM Source: [facility] MHSDOLBEYNONRADSYS Document Id: [id number] ER ESTHETICIAN documented in this encounter Nursing Notes Monica [...] control itching of many rashes. ?? Using yqgf-itk-rkqtcie hydrocortisone cream on small rashes may help reduce swelling and itching. Most yonr-wsp-wkwjuav antifungal medications can treat athletes foot and [...] resistant bacteria (MRSA) on your skin. ?? [phone] [facility], [address] [place] [address], [place] [address]. All rights reserved. This information is not intended as a substitute for professional medical care. Always follow your healthcare professional's instructions. Source: [facility] POWERCHART Document Id: [id number] ER ESTHETICIAN Monica Ba M.D. - 04/06/2015 12:14 PM [...] control itching of many rashes. ?? Using cyum-yvl-pjlwypr hydrocortisone cream on small rashes may help reduce swelling and itching. Most bqkx-pdj-vqsuftm antifungal medications can treat athletes foot and [...] resistant bacteria (MRSA) on your skin. ?? [id number] [place] [address]. All rights reserved. This information is not intended as a substitute for professional medical care. Always follow your healthcare professional's instructions. Source: [facility] POWERCHART Document Id: [id number] ER ESTHETICIAN Monica Ba M.D. - 04/06/2015 12:13 PM CST Ambulatory Patient Education The following Patient Education Materials have been given to the patient: Patient Education Materials: Source: [facility] POWERCHART Document Id: [id number] ER ESTHETICIAN documented in this encounter Miscellaneous Notes Miscellaneous - Shira Shaw - 04/08/2015 3:13 PM CST Referral Document Contains Addenda Addendum by MONICA BA MD on 12 April 2015 18:44:07 MASTER ESTHETICIAN From: MONICA BA MD To: SHIRA SHAW; Sent: 04/12/2015 18:44:07 MASTER ESTHETICIAN Subject: RE: Referral Please make the referral. Thanks! Addendum by SHIRA SHAW on 12 April 2015 10:41:00 MASTER ESTHETICIAN From: SHIRA SHAW To: MONICA BA MD; Sent: 04/12/2015 10:41:00 MASTER ESTHETICIAN Subject: RE: Referral Referral submitted online. [place] will contact patient to schedule an appointment. Addendum by MONICA BA MD on 11 April 2015 08:09:00 MASTER ESTHETICIAN From: MONICA BA MD To: SHIRA SHAW; Sent: 04/11/2015 08:09:00 MASTER ESTHETICIAN Subject: RE: Referral Okay to refer--either to derm in [place] or to the seam sewer who comes to [place]. From: SHIRA SHAW To: MONICA BA MD; MARIA C BERGER RN; Sent: 04/08/2015 15:13:30 MASTER ESTHETICIAN Subject: Referral Patient called stating she would like to be referred to [place] [facility] for her rash. Please Advise Source: [facility] POWERCHART Document Id: [id number] Electronically signed by Lillian [facility] Electrical System Specialist [id number] at 08/11/2016 7:05 AM CDT Miscellaneous - Monica Ba M.D. - 04/06/2015 12:16 PM CST Ambulatory Patient Summary [address] [place] [id number] Visit Information Name: [facility] PEDERSON [facility] Number: [id number] Current Date: 04/06/2015 12:16:10 Physicians Attending Provider: MONICA BA MD Primary Care Provider: PCP, UNASSIGNED - [place] has been given the following list of [...] two times a day New Routed to [address] [address] fluticasone nasal (Flonase) 1 [place](s), Nasal, once a day as needed for Nasal congestion hydrOXYzine (Vistaril 25 mg oral capsule) 2 cap, Oral, four times a day as needed for itching New Routed to [address] [address] *lisinopril-hydrochlorothiazide (lisinopril-hydrochlorothiazide 20 mg-12.5 mg [...] Appointments Date Time Location Provider 04/21/2015 09:15 [facility] Tanesha SEGOVIA, Chirag Loya Attention: Contact [...] control itching of many rashes. ?? Using usgq-hbz-dzjhcwi hydrocortisone cream on small rashes may help reduce swelling and itching. Most murx-acs-tlzezuq antifungal medications can treat athletes foot and [...] resistant bacteria (MRSA) on your skin. ?? [phone] [facility], [address] [place] [address]. All rights reserved. This information is not [...] if you dont have one. Go to [email or web address] and click on Create Your Account. Then, follow the directions to complete the online form. Youll be asked for your [facility] number which you can find at the top of this document. Your Goals/Additional instructions: Source: [facility] POWERCHART Document Id: [id number] ER ESTHETICIAN Miscellaneous - Monica Ba M.D. - 04/06/2015 12:16 PM CST Ambulatory Discharge Medication List [address] [id number] Visit Information Name: NOVA PEDERSON [facility] Number: [id number] Visit Date: 04/06/2015 12:16:08 Attending [...] two times a day New Routed to [address] [address] fluticasone nasal (Flonase) 1 [place](s), Nasal, once a day as needed for Nasal congestion hydrOXYzine (Vistaril 25 mg oral capsule) 2 cap, Oral, four times a day as needed for itching New Routed to [address] [address] *lisinopril-hydrochlorothiazide (lisinopril-hydrochlorothiazide 20 mg-12.5 mg [...] MD Signed On:06-APR-2015 12:15:24 Additional Information: Source: [facility] POWERCHART Document Id: [id number] ER ESTHETICIAN Miscellaneous - Mary Shay, L.P.N. - 04/06/2015 10:09 AM CST Adult Residential Sales Associate Intake/History Adult Residential Sales Associate Intake/History Entered On: 04/06/2015 10:14 MASTER ESTHETICIAN Performed On: 04/06/2015 10:09 MASTER ESTHETICIAN by MARY SHAY ATTENDANT SALES Intake Chief Complaint : Rash. Onset of [...] kg MARY SHAY LPN - 04/06/2015 10:09 MASTER ESTHETICIAN General Info Information Given By : Patient Preferred Communication Mode : Verbal Languages : Kyrgyz Is Patient Female and 13-50 no hysterectomy : No MARY SHAY LPN - 04/06/2015 10:09 MASTER ESTHETICIAN Subjective Pain Symptoms : No MARY SHAY LPN - 04/06/2015 10:09 MASTER ESTHETICIAN Dependent Habits Exposure to Tobacco Smoke : Care provider denies smoking in home, Other: former 20yrs ago. Smoking Status : Former smoker Tobacco 2A : Yes Tobacco Use/Currently Using : No Tobacco Use/Last 30 Days : No Tobacco Use/Last 12 months : No Alcohol Use : No MARY SHAY LPN - 04/06/2015 10:09 MASTER ESTHETICIAN Recreational Drug Use Grid Drug Use : None MARY SHAY LPN - 04/06/2015 10:09 MASTER ESTHETICIAN Source: [facility] POWERCHART Document Id: [id number] MASTER ESTHETICIAN!35 ER ESTHETICIAN documented in this encounter Plan of Treatment Not on filedocumented as of this encounter Procedures Procedure Name Priority Date/Time Associated Diagnosis Comme nts HEPATIC FUNCTION Routine 04/06/2015 11:02 AM Resu lts for this PANEL, S MASTER ESTHETICIAN procedure are i n the results section. CBC WITHOUT Routine 04/06/2015 11:02 AM Results for this DIFFERENTIAL, B MASTER ESTHETICIAN procedure ar e in the results section. THYROID-STIMULATING Routine 04/06/2015 11:02 AM R esults for this HORMONE-SENSITIVE MASTER ESTHETICIAN procedure are in (S-TSH) the results section. BASIC METABOLIC Routine 04/06/2015 11:02 AM Resul ts for this PANEL, S/P MASTER ESTHETICIAN procedure are i n the results section. documented in this encounter Results (ABNORMAL) CBC without Differential (04/06/2015 11:02 AM MASTER ESTHETICIAN) Analysis Performed At Patho logist Time Signature Leukocytes 9.8 3.4 - 10.5 POWERCHART X109L Erythrocytes 5.19 (H) 3.90 - POWERCHART 5.03 [id number] Hemoglobin 13.8 12.0 - POWERCHART 15.5 GDL Hematocrit 43.6 34.9 - POWERCHART 44.5 MCV 84.0 82.0 - POWERCHART 98.0 FL HX RDW 14.7 11.9 - POWERCHART 15.5 Platelet Count 274 150 - 450 POWERCHART X109L Specimen (Source) Anatomical Collection Method Collection Time Re ceived Time Location / / Volume Laterality Blood 04/06/2015 11:02 AM MASTER ESTHETICIAN Monica Ba M.D. LAB BLOOD ADD-ON Performing Organization Address City/State/ZIP Code Phon e Number POWERCHART (ABNORMAL) BMP (Basic Metabolic Panel) (04/06/2015 11:02 AM MASTER ESTHETICIAN) P athologist Signature Sodium, S 139.0 135.0 [...] POWERCHART MMOLL HXeGFR (MDRD) >60 >=60 POWERCHART [id number] eGFR >60 >=60 POWERCHART Black/ [id number] [place] Glucose 143 (H) 70 - 139 POWERCHART MGDL Specimen (Source) Anatomical Collection Method Collection Time Re ceived Time Location / / Volume Laterality Blood 04/06/2015 11:02 AM MASTER ESTHETICIAN Monica Ba M.D. LAB BLOOD ADD-ON Performing Organization Address City/State/ZIP Code Phon e Number POWERCHART Hepatic Function Panel (04/06/2015 11:02 AM MASTER ESTHETICIAN) Patholo gist Method Time Signature Alanine 29 [...] / Volume Laterality Blood 04/06/2015 11:02 AM MASTER ESTHETICIAN Monica Ba M.D. LAB BLOOD ADD-ON Performing Organization Address City/State/ZIP Code Phon e Number POWERCHART Thyroid-Stimulating Hormone-Sensitive (s-TSH) (04/06/2015 11:02 AM MASTER ESTHETICIAN) P athologist Signature TSH 3.60 0.27 - 4.20 POWERCHART (Thyrotropin) MIUL Specimen (Source) Anatomical Collection Method Collection Time Re ceived Time Location / / Volume Laterality Blood 04/06/2015 11:02 AM MASTER ESTHETICIAN Monica Ba M.D. LAB BLOOD ADD-ON Performing Organization Address City/State/ZIP Code Phon e Number POWERCHART documented in this encounter Visit Diagnoses Not on filedocumented in this encounter Additional Health Concerns Assessment Noted Time PHQ-9 Depression Total Score: 3 05/13/2013 2:06 PM MASTER ESTHETICIAN documented as of this encounter
--- OUTSIDE RECORDS SUMMARY | 2022-01-17 20:17 | XMS_ITS | Encounter Summary ---
:1945 Author Organization [facility] Address [address] [place] [address] Care Team Providers Name Role Phone Unavailable Primary Care Provider Unavailable Encounter Details Date Type Department Care Team Description 02/24/2015 Hospital Encounter HX [facility] ED Best Harris III, M.D. [address] [place] [phone] (Wo rk) Social History Tobacco Use Types Packs/Day Years Used Date Smoking Tobacco: Never Assessed Sex Assigned at Date Recorded Not on file documented as of this encounter Last Filed Vital Signs Vital Sign Reading Time Taken Comments Blood Pressure 166/94 02/24/2015 3:50 PM [employer]LOOR INSTALLER Pulse 85 02/24/2015 3:50 PM [employer] INSTALLER Temperature - - Respiratory Rate 20 02/24/2015 3:50 PM [employer]LOOR INSTALLER Oxygen Saturation - - Inhaled Oxygen Concentration - - Weight 138 kg (304 lb 3.8 oz) 02/24/2015 12:31 PM [employer] F[employer]OR INSTALLER Height - - Body Mass Index 55.35 10/26/2014 2:55 PM CDT documented in this encounter Discharge Summaries Jered Vilchis R.N. - 02/24/2015 4:13 PM CST ED Discharge Instructions [address] [address] Name: NOVA PEDERSON Date of : 1945 12:00 AM Visit Date: 02/24/2015 12:16 PM [facility] Number: [id number] Address: [id number] [place] [phone] Primary Care Provider: PCPBAILEESSLUZ MARIA MATTHEWS IMPORTANT: [facility] [place] would like to thank you for allowing [...] 8 hours and increasing bladder pressure ?? [phone] [place] [address]. All rights reserved. This information is not [...] inside the mouth ?? Painful swallowing ?? [phone] Gricelda Mckinley, [address] [place] [address], [place] [address]. All rights reserved. This information is not [...] if you dont have one. Go to [email or web address] and click on Create Your Account. Then, follow the directions to complete the online form. Youll be asked for your [facility] number which you can find at the [...] two times a day *sodium chloride nasal (Sebec Saline 0.65% nasal solution) 2 drop(s) Nasal every 2 hours *sodium chloride nasal (Sebec Saline 0.65% nasal gel) 1 spray(s) Nasal [...] Republican/Relationship Date Time Provider Signature Date Time IMPORTANT: [...] home with a responsible alliance party. I, MARY CARMENNOVA , or responsible alliance party have received this information and my questionshave been answered. I have discussed any challenges I see with this plan with the nurse or physician. Patient Signature or Responsible Republican/Relationship Date Time Provider Signature Date Time This document has images extracted. Please consider using [facility] for all your patient education needs. Source: [facility] [employer] Document Id: [id number] WOOD FLOOR INSTALLER Jered Vilchis R.N. - 02/24/2015 4:13 PM CST ED Depart Summary [facility] Emergency Department Clinical Discharge Summary PERSON INFORMATION Name NOVA PEDERSON Age 69 Years 1945 12:00 AM Sex Female Language Equ[place] Guinean PCP PCP, UNASSIGNED - [place] Marital Status Single Visit Id Visit Reason Flank pain; severe middle back pain Specialty Enc Type Emergency Med Service Emergency Medicine Referred by Track Group [facility] ED Discharge 02/24/2015 4:00 PM Tracking Id [id number] Checkout 02/24/2015 4:00 PM Checkin 02/24/2015 12:16 PM Acuity 3 -Urgent Dispo Type * Discharged to Home or Self Care Arrival 02/24/2015 12:16 PM Reg Status Complete LOS 000 03:44 Address: [address] [place] [phone] Comment: PROVIDER INFORMATION Provider Role Provider Contact Time JERED VILCHIS RN ED Nurse 02/24/15 12:23 BEST HARRIS III, MD ED Provider 02/24/15 12:30 DIAGNOSIS 1:Stone Kidney; 2:Body Mass Index (BMI) 70 And Over Adult; 3:Morbid Obesity Body Mass Index (BMI) >40 Adult; 4:Candidiasis Intertrigo Comment: PATIENT EDUCATION INFORMATION Instructions: KIDNEY STONE w/ Colic; CALDERON SKIN INFECTION Follow up: With: Address: When: Follow up with primary care provider Within 1 - 2 weeks Comments: kidney stone [facility] Document Id: [id number] WOOD FLOOR INSTALLER documented in this encounter Medications at Time [...] ED Disposition Summary Entered On: 02/24/2015 15:51 [employer] INSTALLER Performed On: 02/24/2015 15:51 HARDWOOD FLOOR INSTALLER by JERED VILCHIS RN ED Disposition Summary Accompanied By : Sibling Mode of Discharge : Ambulatory Transportation : Private vehicle Discharge From ED With : Home Med List Printed Discharge Instructions Given to Patient : Yes JERED VILCHIS RN - 02/24/2015 15:51 [employer] FLOOR INSTALLER [facility] Document Id: [id number] H[employer] FLOOR INSTALLER!7 WOOD FLOOR INSTALLER Jered Vilchis R.N. - 02/24/2015 3:51 PM CST ED Pain Assessment ED Pain Assessment Entered On: 02/24/2015 15:51 [employer]OR INSTALLER Performed On: 02/24/2015 15:51 [employer] FLOOR INSTALLER by JERED VILCHIS RN Pain Assessment Pain Symptoms : Yes JERED VILCHIS RN - 02/24/2015 15:51 [employer] INSTALLER Pain Scale Pain Scale Verbal 0-10 : Open JERED VILCHIS RN - 02/24/2015 15:51 [employer] INSTALLER Pain Pain Assessment Grid Pain 1 Location : Flank Intensity : 8 JERED VILCHIS RN - 02/24/2015 15:51 [employer] FLOOR INSTALLER Source: [employer] Document Id: [id number] HARDWO[employer] FLOOR INSTALLER!10 WOOD FLOOR INSTALLER Best Harris M.D. - 02/24/2015 1:01 PM CST Flank pain Document Contains Addenda Patient: NOVA PEDERSON Age: 69 years Sex: Female : 1945 Author: BEST HARRIS III, MD Attachments: None Associated Diagnosis: Stone Kidney; Body Mass Index (BMI) 70 And Over Adult; Morbid Obesity Body Mass Index (BMI) >40 Adult; Candidiasis Intertrigo; Stone Kidney; Body Mass Index (BMI) 70 And Over Adult; Morbid Obesity Body Mass Index (BMI) >40 Adult; Candidiasis Intertrigo Basic Information Additional information: Chief Complaint from Nursing Triage Note : Chief Complaint Description 02/24/2015 12:31 HARD[employer] FLOOR INSTALLER Chief Complaint Description 69 yo female presents [...] Reactions (Selected) NKA. Medications: (Selected) Prescriptions Prescribed Sebec Saline 0.65% nasal gel: 1 spray(s), Nasal, 4xDay, 14 gm Sebec Saline 0.65% nasal solution: 2 drop(s), Nasal, [...] Examination Vital Signs: Vital Signs 02/24/2015 12:39 H[employer] F[employer]OR INSTALLER Peripheral Pulse Rate 90 /min SpO2 95 % Systolic Blood Pressure 162 mmHg >HHI Diastolic Blood Pressure 84 mmHg Mean Arterial Pressure 110 mmHg BP Location Left upper 02/24/2015 12:31 [employer] FLOOR INSTALLER Temperature Core 37.3 DegC Peripheral Pulse Rate 94 /min Respiratory Rate 24 /min HI SpO2 96 % Systolic Blood Pressure 165 mmHg >HHI Diastolic Blood Pressure 125 mmHg >HHI Mean Arterial Pressure 138 mmHg BP Location Left upper , Measurements 02/24/2015 12:31 H[employer] FLOOR INSTALLER Dosing Weight 138.00 kg Actual Weight 138 [...] Auto Differential) (Order Processing): Stat, 02/24/2015 13:02 HARDWO[employer] FLOOR INSTALLER, Once, ed 2 Comprehensive Metabolic Panel (Order Processing): Stat, 02/24/2015 13:02 HARDWOOD FLOOR INSTALLER, Once, ed 2 Patient Care: ED Flank Pain (Order Processing) Radiology: CT Stone Protocol (Order Processing): 02/24/2015 13:02 H[employer] FLOOR INSTALLER, Left flank pain, Stat, Patient Bed, Once, 02/24/2015 13:02 HARDWOOD FLOOR INSTALLER, ED 2, [facility]. Results review:Lab results : Lab View 02/24/2015 13:13 HARDWOOD FLOOR INSTALLER Hgb 13.7 g/dL Hct 42.6 % WBC 10.5 x10(9)/L RBC 5.13 x10(12)/L HI MCV 83.0 fL RDW 14.9 % Platelet 285 x10(9)/L Neutro Absolute 7.76 10(9)/L HI Lymph Absolute 1.88 x10(9)/L [place] Absolute 0.60 x10(9)/L Eos Absolute 0.22 x10(9)/L [...] unit/L Bili Total 0.3 mg/dL 02/24/2015 12:44 H[employer]WO[employer] FLOOR INSTALLER UA Color Yellow UA Clarity Slightly Cloudy [...] pelvis is otherwise unremarkable. Peggy Wang M.D. [id number] 24-Feb-2015 14:58 . Impression and Plan Diagnosis Stone Kidney (Discharge, Medical) Body Mass Index (BMI) 70 And Over Adult (Discharge, Medical) Morbid Obesity Body Mass Index (BMI) >40 Adult (Discharge, Medical) Candidiasis Intertrigo (Discharge, Medical) Plan Condition: Stable. Disposition: Medically cleared, Discharged: to home. Prescriptions: Prescription [facility]: tamsulosin 0.4 mg oral capsule (Prescribe): [...] Discharge ED Patient (Order Processing): 02/24/2015 15:50 HARDWOOD FLOOR INSTALLER, Once. Addendum Portions of this chart were completed with speech recognition software.? Therefore, please be aware that it may contain recognition errors including nonsensical words, phrases, and missing words. Electronically Signed By: BEST HARRIS III, MD On: 02/24/2015 06:20 PM Modified by and Electronically Signed by: BEST HARRIS III, MD On: 02/24/2015 02:17 PM Source: [facility] POWERCHART Document Id: [id number] WOOD FLOOR INSTALLER Jered Vilchis RSariahN. - 02/24/2015 12:39 PM CST ED Primary Assessment Document Has Been Updated ED Primary Assessment Entered On: 02/24/2015 12:44 [employer]OR INSTALLER Performed On: 02/24/2015 12:39 [employer] F[employer]OR INSTALLER by JERED VILCHIS RN Reason For Visit (As Of: 02/24/2015 12:45:01 HARDWOOD FLOOR INSTALLER) Problems(Active) Bleed Nose (ICD-9-CM :784.7 ) Name of Problem: Bleed Nose ; Recorder: ANGELA ZULETA RN; Confirmation: Confirmed ; Classification: Nursing ; Code: 784.7 ; Contributor System: Rew[employer]LoopChart ; Last Updated: 05/13/2014 6:25 HARDWOOD FLOOR INSTALLER ; Life Cycle Date: 05/13/2014 ; Life [...] PNED ; Probability: 0 ; Diagnosis Code: [id number] Triage Chief Complaint Description : See Triage Note Information Given By : Patient Accompanied By : Sibling Mode of Arrival ED : Private vehicle Track : Medical Languages : [place]an Patient Informed of Triage Location : Emergency department Vital Signs Assessed : Yes GCS Assessed : Yes Treatments Prior to Arrival : Ibuprofen Is Patient Female and 13-50 no hysterectomy : No JERED VILCHIS RN - 02/24/2015 12:39 [employer] F[employer]OR INSTALLER Vital Signs Peripheral Pulse Rate : 90 /min Systolic Blood Pressure : 162 mmHg (>HHI) Diastolic Blood Pressure : 84 mmHg NIBP Mean : 110 mmHg BP Location : Left upper extremity SpO2 : 95 % Oxygen Therapy : Room air JERED VILCHIS RN - 02/24/2015 12:39 H[employer]WO[employer] FLOOR INSTALLER [place] Coma Eye Opening Response Chanel : Spontaneously Best Verbal Response [place] : Oriented Best Motor Response [place] : Obeys simple commands Chanel Coma Score : 15 JERED VILCHIS RN - 02/24/2015 12:39 [employer] INSTALLER Pain Assessment Pain Symptoms : Yes JERED VILCHIS RN - 02/24/2015 12:39 HARDWOOD FLOOR INSTALLER ED Physician Notification Time ED Physician Notification Time : 02/24/2015 12:34 [employer] F[employer]OR INSTALLER JERED VILCHIS RN - 02/24/2015 12:39 [employer] FLOOR INSTALLER JOHANN JOHANN Level 1 : No JOHANN Level 2 : No JOHANN Level 3 : Many Vital Signs JOHANN : Danger zone (HR > 100, RR > 20, SaO2 < 92%) JERED VILCHIS RN - 02/24/2015 12:39 HARD[employer] FLOOR INSTALLER DCP GENERIC CODE Tracking Acuity : 3 -Urgent Tracking Group : [facility] ED JERED VILCHIS RN - 02/24/2015 12:39 H[employer] FLOOR INSTALLER Allergy (As Of: 02/24/2015 12:45:02 HARDWOOD FLOOR INSTALLER) Allergies (Active) NKA Estimated Onset Date: Unspecified ; Created By: CARLEY ZIMMER; Reaction Status: Active ; Category: Drug ; Substance: NKA ; Type: Allergy ; Updated By: CARLEY ZIMMER; Reviewed Date: 02/24/2015 12:35CST ID Screen Drug Resistant Organism : No JERED VILCHIS RN - 02/24/2015 12:39 [employer] FLOOR INSTALLER Immunizations Immunizations Current : Yes JERED VILCHIS RN - 02/24/2015 12:39 H[employer]WOOD FLOOR INSTALLER Respiratory Airway : Patent Respirations : Unlabored Respiratory Pattern : Regular JERED VILCHIS RN - 02/24/2015 12:39 HARDWOOD FLOOR INSTALLER Cardiovascular Heart Rhythm : Regular Skin Color : Normal for ethnicity Skin Description : Dry Skin Temperature : Warm JERED VILCHIS RN - 02/24/2015 12:39 HARDWOOD FLOOR INSTALLER Neurological Last Well Time Known : Not applicable Level of Consciousness : Alert Orientation : Oriented x 3 Characteristics of Speech : Appropriate for age Neuro Patient Stated Symptoms : None Gait : Steady Swallowing Difficulty/Aspiration Risk : None JERED VILCHIS RN - 02/24/2015 12:39 HARDWOOD FLOOR INSTALLER ED Psychosocial Affect/Behavior : Anxious, Crying Domestic Abuse Concerns : None Behavioral Health Screen/Safety Assmt : No Emotional Support Available : Yes JERED VILCHIS RN - 02/24/2015 12:39 HARDWOOD FLOOR INSTALLER Gastrointestinal Nutrition ED : Adequate GI Detailed Assessment : Yes JERED VILCHIS RN - 02/24/2015 12:39 HARDWOOD FLOOR INSTALLER GI Detailed GI Patient Stated Symptoms : Abdominal pain, Nausea Bowel Movement Last Date : 02/24/2015 HARDWOOD FLOOR INSTALLER Abdomen Description : Obese Abdomen Palpation : Tender Tenderness : Left upper quadrant JERED VILCHIS RN - 02/24/2015 12:39 HARDWOOD FLOOR INSTALLER /OB Assessment Patient Stated Symptoms : Frequency, Incontinence Urine Description : Clear Urine Color : Yellow JERED VILCHIS RN - 02/24/2015 12:39 HARDWOOD FLOOR INSTALLER Integumentary Integumentary Patient Stated Symptoms : Rash, Ulcers/Sores Skin Turgor : Elastic Mucous Membrane Color : [place] Mucous Membrane Description : Moist Skin Color : Normal for ethnicity Skin Description : Dry Skin Temperature : Warm JERED VILCHIS RN - 02/24/2015 12:39 HARDWOOD FLOOR INSTALLER Skin Abnormality/Location Grid Location : Other: GROIN Laterality : Left Abnormality : Other: RAW-RASH Comments (Comment: patient states she has been using OTC yeast cream [JERED VILCHIS RN - 02/24/2015 12:39 HARDWOOD FLOOR INSTALLER] ) JERED VILCHIS RN - 02/24/2015 12:39 H[employer]WO[employer] FLOOR INSTALLER Musculoskeletal Fall Prevention Education Provided : Yes JERED VILCHIS RN - 02/24/2015 12:39 HARDWOOD FLOOR INSTALLER EENT EENT Nostril Grid Nares, Left Symptoms : Nasal drainage JERED VILCHIS RN - 02/24/2015 12:39 H[employer]WOOD FLOOR INSTALLER Social Habits Exposure to Tobacco Smoke : Care provider denies smoking in home Smoking Status : Former smoker Tobacco 2A : Yes Tobacco Use/Currently Using : No Tobacco Use/Last 30 Days : No Tobacco Use/Last 12 months : No JERED VILCHIS RN - 02/24/2015 12:39 HARDWOOD FLOOR INSTALLER Alcohol Use Grid Alcohol Use : No Last Use : 17 YEARS AGO JERED VILCHIS RN - 02/24/2015 12:39 HARDWOOD FLOOR INSTALLER Recreational Drug Use Grid Drug Use : None JERED VILCHIS RN - 02/24/2015 12:39 HARDWOOD FLOOR INSTALLER Source: [facility] [employer] Document Id: [id number] HARDWOOD FLOOR INSTALLER!110 WOOD FLOOR INSTALLER Jered Vilchis R.N. - 02/24/2015 12:31 PM CST ED Triage Assessment Document Has Been Updated ED Triage Assessment Entered On: 02/24/2015 12:35 [employer] FLOOR INSTALLER Performed On: 02/24/2015 12:31 HARDWOOD FLOOR INSTALLER by JERED VILCHIS RN Reason For Visit (As Of: 02/24/2015 12:35:13 HARDWOOD FLOOR INSTALLER) Problems(Active) Bleed Nose (ICD-9-CM :784.7 ) Name of Problem: Bleed Nose ; Recorder: ANGELA ZULETA RN; Confirmation: Confirmed ; Classification: Nursing ; Code: 784.7 ; Contributor System: RewardLoopChart ; Last Updated: 05/13/2014 6:25 HARDWOOD FLOOR INSTALLER ; Life Cycle Date: 05/13/2014 ; Life [...] PNED ; Probability: 0 ; Diagnosis Code: [id number] Triage Chief Complaint Description : 69 yo [...] Private vehicle Track : Medical Languages : [place] Patient Informed of Triage Location : Emergency department Vital Signs Assessed : Yes GCS Assessed : Yes Treatments Prior to Arrival : Ibuprofen Is Patient Female and 13-50 no hysterectomy : No JERED VILCHIS RN - 02/24/2015 12:31 HARDWOOD FLOOR INSTALLER Vital Signs Temperature Core : 37.3 DegC(Converted [...] scale JERED VILCHIS RN - 02/24/2015 12:31 HARDWOOD FLOOR INSTALLER [place] Coma Eye Opening Response Chanel : Spontaneously Best Verbal Response [place] : Oriented Best Motor Response Chanel : Obeys simple commands Chanel Coma Score : 15 JERED VILCHIS RN - 02/24/2015 12:31 HARDWOOD FLOOR INSTALLER Pain Assessment Pain Symptoms : Yes JERED VILCHIS RN - 02/24/2015 12:31 HARDWOOD FLOOR INSTALLER Pain Scale Pain Scale Verbal 0-10 : Open JERED VILCHIS RN - 02/24/2015 12:31 HARDWOOD FLOOR INSTALLER Pain Pain Assessment Grid Pain 1 Location : Flank Laterality : Left Intensity : 9 Time Pattern : Acute Onset : Gradual Quality : Burning, Sharp Pain Radiation : Yes (Comment: abdomen [JERED VILCHIS RN - 02/24/2015 12:31 HARDWOOD FLOOR INSTALLER] ) Aggravating Factors : Movement Associated Symptoms : Nausea Interventions : MD notified JERED VILCHIS RN - 02/24/2015 12:31 HARDWOOD FLOOR INSTALLER ED Physician Notification Time ED Physician Notification Time : 02/24/2015 12:34 HARDWOOD FLOOR INSTALLER JERED VILCHIS RN - 02/24/2015 12:31 HARDWOOD FLOOR INSTALLER JOHANN JOHANN Level 1 : No JOHANN Level 2 : No JOHANN Level 3 : One JERED VILCHIS RN - 02/24/2015 12:31 HARDWOOD FLOOR INSTALLER DCP GENERIC CODE Tracking Acuity : 3 -Urgent Tracking Group : [facility] ED JERED VILCHIS RN - 02/24/2015 12:31 HARDWOOD FLOOR INSTALLER Allergy (As Of: 02/24/2015 12:35:14 HARDWOOD FLOOR INSTALLER) Allergies (Active) NKA Estimated Onset Date: Unspecified ; Created By: CARLEY ZIMMER; Reaction Status: Active ; Category: Drug ; Substance: NKA ; Type: Allergy ; Updated By: CARLEY ZIMMER; Reviewed Date: 02/24/2015 12:35CST ID Screen Drug Resistant Organism : No JERED VILCHIS RN - 02/24/2015 12:31 HARDWOOD FLOOR INSTALLER Immunizations Immunizations Current : Yes JERED VILCHIS RN - 02/24/2015 12:31 HARDWOOD FLOOR INSTALLER Source: [facility] [employer] Document Id: [id number] HARDWOOD FLOOR INSTALLER!61 WOOD FLOOR INSTALLER documented in this encounter Miscellaneous Notes Miscellaneous - Conversion, Historical Provider Ser - 02/24/2015 4:00 PM HARDWOOD FLOOR INSTALLER Coding Summary-Paper Based CODING DATE: 03/04/2015 FINAL [place] [facility] STATUS: * Discharged to Home or [...] ROWAN Date Saved: 03/04/2015 01:51 pm Source: [facility] [employer] Document Id: [id number] Jered Hernandez R.N. - 02/24/2015 3:51 PM CST Valuables/Belongings Valuables/Belongings Entered On: 02/24/2015 15:52 H[employer]WOOD FLOOR INSTALLER Performed On: 02/24/2015 15:51 HARDWOOD FLOOR INSTALLER by JERED VILCHIS RN Valuables/Belongings Belongings Sent Home With : all belongings sent home with patient Home Medication Disposition : None brought in with patient JERED VILCHIS RN - 02/24/2015 15:51 HARDWOOD FLOOR INSTALLER [facility] Document Id: [id number] HARDWOOD FLOOR INSTALLER!4 WOOD FLOOR INSTALLER Maribel - Jered Vilchis R.N. - 02/24/2015 3:50 PM CST Discharge Vital Signs Form Discharge Vital Signs Form Entered On: 02/24/2015 15:51 HARDWOOD FLOOR INSTALLER Performed On: 02/24/2015 15:50 HARDWOOD FLOOR INSTALLER by JERED VILCHIS RN Vital Signs Temperature [...] air JERED VILCHIS RN - 02/24/2015 15:50 HARDWOOD FLOOR INSTALLER [facility] Document Id: [id number] HARDWOOD FLOOR INSTALLER!11 WOOD FLOOR INSTALLER Jered Hernandez R.N. - 02/24/2015 12:16 PM CST Facility Charge Ticket 2.0 11.0 DX Facility Charge Ticket 2.0 11.0 DX Entered On: 02/24/2015 15:52 HARDWOOD FLOOR INSTALLER Performed On: 02/24/2015 12:16 HARDWOOD FLOOR INSTALLER by JERED VILCHIS RN Facility Charge Ticket [...] RTF : Laboratory Urinalysis with Microscopic,02/24/15 12:39,BEST HARRIS III, MD Completed CBC (includes Auto Differential),02/24/15 13:02,BEST HARRIS III, MD Completed Comprehensive Metabolic Panel,02/24/15 13:02,BEST HARRIS III, MD Completed Automated Diff-5 Part,02/24/15 13:15,BEST HARRIS III, MD Completed CT / MRI / Ultrasound CT Stone Protocol,02/24/15 13:02,BEST HARRIS III, MD Completed Lynx Order Management : [...] Control : 11 Lynx Visit Level : 21806 Level 4 Treatments Prior to Arrival : Ibuprofen JERED VILCHIS RN - 02/24/2015 15:52 HARDWOOD FLOOR INSTALLER Chief Complaint 11.0 Reason For Visit Category : Genitourinary TVL Calculation : 12 ED Chief Complaint Genitourinary 11.0 : Flank pain TVL for Facility Charge Ticket Dx : Level 4 JERED VILCHIS RN - 02/24/2015 15:52 HARDWOOD FLOOR INSTALLER [facility] Document Id: [id number] HARDWOOD FLOOR INSTALLER!24 WOOD FLOOR INSTALLER documented in this encounter Plan of Treatment Not on filedocumented as of this encounter Procedures Procedure Name Priority Date/Time Associated Comments Diagnosis AUTOMATED Routine 02/24/2015 1:13 PM Results f or this DIFFERENTIAL, B [employer] FLOOR INSTALLER procedure ar e in the results section. CBC WITH DIFFERENTIAL, Routine 02/24/2015 1:13 PM Results for this B [employer]WOOD FLOOR INSTALLER procedure are i n the results section. COMPREHENSIVE Routine 02/24/2015 1:13 PM Results for this METABOLIC PANEL, S/P [employer] F[employer]OR INSTALLER procedu re are in the results section. URINALYSIS WITH Routine 02/24/2015 12:44 Results for this MICROSCOPIC PM [employer] FLOOR INSTALLER procedure are i n the results section. documented in this encounter Results (ABNORMAL) Automated Differential (02/24/2015 1:13 PM HARDWOOD FLOOR INSTALLER) Patholo gist Method Time Signature Absolute 7.76 [...] Laterality Blood 02/24/2015 1:13 PM 5 1:13 HARDWOOD FLOOR INSTALLER PM [employer] FLOOR INSTALLER Best Harris III, M.D. LAB BLOOD ADD-ON Performing Organization Address City/State/ZIP Code Phon e Number POWERCHART (ABNORMAL) CBC with Differential (02/24/2015 1:13 PM HARDWOOD FLOOR INSTALLER) Analysis Performed At Patho logist Time Signature Leukocytes 10.5 3.4 - 10.5 POWERCHART X109L Erythrocytes 5.13 (H) 3.90 - POWERCHART 5.03 R8377L Hemoglobin 13.7 12.0 - POWERCHART 15.5 GDL Hematocrit 42.6 34.9 - POWERCHART 44.5 MCV 83.0 82.0 - POWERCHART 98.0 FL HX RDW 14.9 11.9 - POWERCHART 15.5 Platelet Count 285 150 - 450 POWERCHART X109L Specimen (Source) Anatomical Collection Method Collection Time Re ceived Time Location / / Volume Laterality Blood 02/24/2015 1:13 PM HARDWOOD FLOOR INSTALLER Best Harris III, M.D. LAB BLOOD ADD-ON Performing Organization Address City/State/ZIP Code Phon e Number POWERCHART (ABNORMAL) CMP (Comprehensive Metabolic Panel) (02/24/2015 1:13 PM HARDWOOD FLOOR INSTALLER) [facility] Method Time Signature Alanine 32 7 [...] POWERCHART MMOLL HXeGFR (MDRD) >60 >=60 POWERCHART [id number] 2 eGFR Black/ >60 >=60 POWERCHART Japanese [id number] 2 Bilirubin, Total, S 0.3 0.1 - 1.0 POWERCHART MGDL Total Protein, S 7.0 6.3 - 7.9 POWERCHART GDL Glucose 156 (H) 70 - 139 POWERCHART MGDL Specimen (Source) Anatomical Collection Method Collection Time Re ceived Time Location / / Volume Laterality Blood 02/24/2015 1:13 PM HARDWOOD FLOOR INSTALLER Best Harris III, M.D. LAB BLOOD ADD-ON Performing Organization Address City/State/ZIP Code Phon e Number POWERCHART (ABNORMAL) Urinalysis, Complete, Includes Microscopic (02/24/2015 12:44 PM HARDWOOD FLOOR INSTALLER) [facility] Method Time Signature Clarity Slightly Clear POWERCHART Cloudy (A) HXUr Color Yellow Colorless POWERCHART Specific 1.015 POWERCHART Ethel, POCT, U pH, POCT, Urine 6.5 <5.0 [...] Laterality Urine, First 02/24/2015 12:44 Voided PM HARDWOOD FLOOR INSTALLER Best Harris III, M.D. LAB URINE ORDERABLES Performing Organization Address City/State/ZIP Code Phon e Number POWERCHART documented in this encounter Visit Diagnoses Not on filedocumented in this encounter Additional Health Concerns Assessment Noted Time PHQ-9 Depression Total Score: 3 05/13/2013 2:06 PM HARDWOOD FLOOR INSTALLER documented as of this encounter
--- OUTSIDE RECORDS SUMMARY | 2022-01-17 20:17 | XMS_ITS | Encounter Summary ---
:1945 Author Organization [facility] Address [address] [place] [address] Care Team Providers Name Role Phone Suhail [...] on CPAP CDM Reports - EYEGEN Id: [id number] Status: Fnl documented in this encounter Plan [...] COVID19 Pending 03/17/2020 03/17/2020 03/18/2020 2:39 PM DEWATERER OPERATOR Assessment Noted Time PHQ-9 Depression Total Score: 3 05/13/2013 2:06 PM DEWATERER OPERATOR documented as of this encounter Care Teams Audio Video Repairer Relationship Specialty Start Date End Date Suhail Lemus M.D. PCP - General Family Medicine 09/19/[address] [place] [address] [phone] documented as of this encounter
--- OUTSIDE RECORDS SUMMARY | 2022-01-17 20:17 | XMS_ITS | Encounter Summary ---
:1945 Author Organization [facility] Address [address] [place] [address] Care Team Providers Name Role Phone Unavailable Primary Care Provider Unavailable Encounter Details Date Type Department Care Team Description 05/27/2014 Hospital Encounter HX [facility] ME Abel Shah M.D. [address] [place] [phone] (Wo rk) Social History Tobacco Use [...] documented as of this encounter Progress Notes Nelly Shah M.D. - 05/27/2014 11:01 AM CDT [id number] CHIEF COMPLAINT/REASON FOR VISIT Rosacea and dry, itchy skin. HISTORY OF PRESENT ILLNESS Kristen is a pleasant, 68-year-old female who comes to clinic today with multiple concerns. After narrowing down her concerns she would like to focus today on her rosacea and itchy eyebrows, ears and skin. She states she has been battling these for several years. She does follow with Dermatology in [place]. She has been trialed on multiple medications [...] SHAH MD On: 05/28/2014 08:31 AM Source: [facility] MHSDOLBEYNONRADSYS Document Id: [id number] documented in this encounter Miscellaneous Notes Miscellaneous - Teresa Edmonds L.P.N. - 05/27/2014 11:39 AM CDT Adult Data Acquisition Technician Intake/History Adult Data Acquisition Technician Intake/History Entered On: 05/27/2014 11:43 CDT Performed On: 05/27/2014 11:39 CDT by TERESA EDMONDS Intake Chief Complaint : not feeling well with cough sinus congestion questions about her labs in [place] Temperature Core : 37.4 DegC(Converted to: 99.3 [...] Information Given By : Patient Languages : Persian Is Patient Female and 13-50 no hysterectomy : No TERESA EDMONDS 05/27/2014 11:39 CDT Subjective Pain Symptoms : No TERESA EDMONDS 05/27/2014 11:39 CDT Dependent Habits Tobacco Use/Currently Using : No Smoking Status : Former smoker TERESA EDMONDS 05/27/2014 11:39 CDT Tobacco Use Grid Last Use : 1997 TERESA EDMONDS 05/27/2014 11:39 CDT Recreational Drug Use Grid Drug Use : None TERESA EDMONDS 05/27/2014 11:39 CDT ID Screen Drug Resistant Organism : No Travel Within Last 21 Days : No Contact with someone with Ebola : No TERESA EDMONDS 05/27/2014 11:39 CDT Source: [facility] POWERCHART Document Id: [id number] CDT!31 documented in this encounter Plan of Treatment Not on filedocumented as of this encounter Visit Diagnoses Not on filedocumented in this encounter Additional Health Concerns Assessment Noted Time PHQ-9 Depression Total Score: 3 05/13/2013 2:06 PM RN EMERGENCY ROOM documented as of this encounter
--- OUTSIDE RECORDS SUMMARY | 2022-01-17 20:17 | XMS_ITS | Encounter Summary ---
:1945 Author Organization [facility] Address [address] [place] [address] Care Team Providers Name Role Phone Unavailable Primary Care Provider Unavailable Encounter Details Date Type Department Care Team Description 05/13/2014 Hospital Encounter HX [facility] ED Teresa Calles P.ACherelle [address] [place] [address] [phone] (Wo rk) Social History Tobacco Use Types Packs/Day Years Used Date Smoking Tobacco: Never Assessed Sex Assigned at Date Recorded Not on file documented as of this encounter Last Filed Vital Signs Vital Sign Reading Time Taken Comments Blood Pressure 159/79 05/13/2014 7:15 AM INSULATION CUPOLA CHARGER Pulse 88 05/13/2014 6:30 AM INSULATION CUPOLA CHARGER Temperature - - Respiratory Rate - - Oxygen Saturation - - Inhaled Oxygen Concentration - - Weight - - Height - - Body Mass Index - - documented in this encounter Discharge Summaries Mariam Sandy, RSariahNSariah - 05/13/2014 7:19 AM CST ED Discharge Instructions [address] [address] Name: NOVA PEDERSON Date of : 1945 12:00 AM Visit Date: 05/13/2014 6:19 AM [facility] Number: [id number] Address: [address] [place] [phone] Primary Care Provider: PCP, UNASSIGNED - BYRON IMPORTANT: [facility] in [place] would like to thank you for allowing [...] Appointments: Date Time Location Provider 05/21/2014 12:30 [facility] Mariah SEGOVIA, Delano Stauffer Patient Education Materials: [id number] Nosebleed The skin inside your nose is [...] so you wont feel any pain. ?? [phone] Gricelda Mckinley, [address] [place] [address], [place] [address]. All rights reserved. This information is not intended as a substitute for professional medical care. Always follow your healthcare professional's instructions. [id number] NOSEBLEED [Adult] Bleeding from the nose most [...] Shortness of breath or trouble breathing ?? [phone] [facility], [address] [place] [address], [place] [address]. All rights reserved. This information is not intended as a substitute for professional medical care. Always follow your healthcare professional's instructions. ED Tests and Procedures: Order Status Discharge Prescriptions & Home Medications: Medication/Strength Dose Route Frequency Indications/Special Instructions/Comments/Notes sodium chloride nasal ([place] Saline 0.65% nasal solution) 2 drop(s) Nasal every 2 hours sodium chloride nasal ([place] Saline 0.65% nasal gel) 1 spray(s) Nasal [...] a ride home with a responsible republican. IMARY CARMEN ANNA CATHERINE , or responsible republican have received this information and my questionshave been answered. I have discussed any challenges I see with this plan with the nurse or physician. Patient Signature or Responsible Republican/Relationship Date Time Provider Signature Date Time This document has images extracted. Please consider using [employer] for all your patient education needs. Source: [facility] POWERCHART Document Id: [id number] LATION CUPOLA CHARGER Mariam Sandy R.N. - 05/13/2014 7:19 AM CST ED Depart Summary [facility] Emergency Department Clinical Discharge Summary PERSON INFORMATION Name NOVA PEDERSON Age 68 Years 1945 12:00 AM Sex Female Language French PCP PCP, UNASSIGNED - [place] Marital Status Single N [id number] Visit Id Visit Reason Nose bleed; bloodly nose Specialty Enc Type Emergency Med Service Emergency Medicine Referred by Track Group [facility] ED Discharge 05/13/2014 7:15 AM Tracking Id [id number] Checkout 05/13/2014 7:15 AM Checkin 05/13/2014 6:19 AM Acuity 2 -Emergent Dispo Type * Discharged to Home or Self Care Arrival 05/13/2014 6:19 AM Reg Status Complete LOS 000 00:56 Address: [address] [place] [address] [phone] Comment: PROVIDER INFORMATION Provider Role Provider Contact Time SHEILA ZULETA FELT PAD CUTTER Nurse 05/13/14 06:33 CHRISTEN SHAIKH MD ED Provider 05/13/14 06:44 MARIAM SANDY FELT PAD CUTTER Nurse 05/13/14 06:59 DIAGNOSIS Epistaxis Comment: PATIENT EDUCATION INFORMATION Instructions: Nosebleed; EPISTAXIS (Adult) Follow up: With: Address: When: Follow up with primary care provider Within 1 month Comments: For recheck on blood pressure, or sooner for any nose bleed. With: Address: When: UNASSIGNED - [place] PCP Within As Needed Comments: Source: [facility] POWERCHART Document Id: [id number] LATION CUPOLA CHARGER documented in this encounter Medications at Time [...] Note : Chief Complaint Description 05/13/2014 6:27 INSULATION CUPOLA CHARGER Chief Complaint Description see note 05/13/2014 6:25 INSULATION CUPOLA CHARGER Chief Complaint Description 68 year old female [...] Reactions (Selected) NKA. Medications: (Selected) Prescriptions Prescribed [place] Saline 0.65% nasal gel: 1 spray(s), Nasal, 4xDay, 14 gm [place] Saline 0.65% nasal solution: 2 drop(s), Nasal, [...] Examination Vital Signs: Vital Signs 05/13/2014 7:15 INSULATION CUPOLA CHARGER Systolic Blood Pressure 159 mmHg HI Diastolic Blood Pressure 79 mmHg BP Location Other: left wrist 05/13/2014 6:30 INSULATION CUPOLA CHARGER Temperature Oral 36.7 DegC Peripheral Pulse Rate 88 /min SpO2 96 % Systolic Blood Pressure 175 mmHg >HHI Diastolic Blood Pressure 85 mmHg BP Location Left upper , SpO2 05/13/2014 6:30 INSULATION CUPOLA CHARGER SpO2 96 % . General: Alert, moderate [...] from flowsheet : Vital Signs 05/13/2014 7:15 INSULATION CUPOLA CHARGER Systolic Blood Pressure 159 mmHg HI Diastolic Blood Pressure 79 mmHg BP Location Other: left wrist 05/13/2014 6:30 INSULATION CUPOLA CHARGER Temperature Oral 36.7 DegC Peripheral Pulse Rate [...] SHAIKH MD On: 05/14/2014 03:08 PM Source: [facility] [employer] Document Id: [id number] LATION CUPOLA CHARGER Mariam Sandy RSariahNSariah - 05/13/2014 7:03 AM CST ED Pain Assessment ED Pain Assessment Entered On: 05/13/2014 7:03 INSULATION CUPOLA CHARGER Performed On: 05/13/2014 7:03 INSULATION CUPOLA CHARGER by MARIAM SANDY RN Pain Assessment Pain Symptoms : No MARIAM SANDY RN - 05/13/2014 7:03 INSULATION CUPOLA CHARGER [facility] Document Id: [id number] INSULATION CUPOLA CHARGER!3 LATION CUPOLA CHARGER Mariam Sandy R.N. - 05/13/2014 7:02 AM CST ED Disposition Summary ED Disposition Summary Entered On: 05/13/2014 7:03 INSULATION CUPOLA CHARGER Performed On: 05/13/2014 7:02 INSULATION CUPOLA CHARGER by MARIAM SANDY RN ED Disposition Summary Accompanied By : Alone Mode of Discharge : Ambulatory Transportation : Private vehicle Discharge From ED With : Home Med List Printed Discharge Instructions Given to Patient : Yes Patient Status at Discharge from ED : Improved MARIAM SANDY RN - 05/13/2014 7:02 INSULATION CUPOLA CHARGER Source: [employer] Document Id: [id number] INSULATION CUPOLA CHARGER!8 LATION CUPOLA CHARGER Sheila Zuleta R.N. - 05/13/2014 6:27 AM CST ED Primary Assessment Document Has Been Updated ED Primary Assessment Entered On: 05/13/2014 6:28 INSULATION CUPOLA CHARGER Performed On: 05/13/2014 6:27 INSULATION CUPOLA CHARGER by SHEILA ZULETA RN Reason For Visit (As Of: 05/13/2014 06:28:41 INSULATION CUPOLA CHARGER) Problems(Active) Bleed Nose (ICD-9-CM :784.7 ) Name of Problem: Bleed Nose ; Recorder: SHEILA ZULETA RN; Confirmation: Confirmed ; Classification: Nursing ; Code: 784.7 ; Contributor System: Connectbeam ; Last Updated: 05/13/2014 6:25 INSULATION CUPOLA CHARGER ; Life Cycle Date: 05/13/2014 ; Life Cycle Status: Active ; Responsible Provider: SHEILA ZULETA RN; Vocabulary: ICD-9-CM Triage Chief Complaint Description : see note Mode of Arrival ED : Private vehicle Track : Medical Languages : French Treatments Prior to Arrival : None Is Patient Female and 13-50 no hysterectomy : No SHEILA ZULETA RN - 05/13/2014 6:27 INSULATION CUPOLA CHARGER Pain Assessment Pain Symptoms : No SHEILA ZULETA RN - 05/13/2014 6:27 INSULATION CUPOLA CHARGER ID Screen Drug Resistant Organism : No Travel Within Last 21 Days : No SHEILA ZULETA RN - 05/13/2014 6:27 INSULATION CUPOLA CHARGER Respiratory Airway : Patent Respirations : Unlabored Respiratory Pattern : Regular SHEILA ZULETA RN - 05/13/2014 6:27 INSULATION CUPOLA CHARGER Cardiovascular Heart Rhythm : Regular Skin Color : Normal for ethnicity Skin Description : Dry Skin Temperature : Warm SHEILA ZULETA RN - 05/13/2014 6:27 INSULATION CUPOLA CHARGER Neurological Last Well Time Known : Yes Last Known Well Time : 05/13/2014 5:30 INSULATION CUPOLA CHARGER Level of Consciousness : Alert Orientation : Oriented x 3 Characteristics of Speech : Appropriate for age SHEILA ZULETA RN - 05/13/2014 6:27 INSULATION CUPOLA CHARGER ED Psychosocial Affect/Behavior : Calm Domestic Abuse Concerns : None SHEILA ZULETA RN - 05/13/2014 6:27 INSULATION CUPOLA CHARGER Gastrointestinal Nutrition ED : Adequate SHEILA ZULETA RN - 05/13/2014 6:27 INSULATION CUPOLA CHARGER Musculoskeletal Fall Prevention Education Provided : SHEILA ALDRIDGE RN - 05/13/2014 6:27 INSULATION CUPOLA CHARGER Social Habits Tobacco Use/Currently Using : No Smoking Status : Former smoker SHEILA ZULETA RN - 05/13/2014 6:27 INSULATION CUPOLA CHARGER Alcohol Use Grid Alcohol Use : No SHEILA ZULETA RN - 05/13/2014 6:27 INSULATION CUPOLA CHARGER Recreational Drug Use Grid Drug Use : None SHEILA ZULETA RN - 05/13/2014 6:27 INSULATION CUPOLA CHARGER Source: [facility] POWERCHART Document Id: [id number] INSULATION CUPOLA CHARGER!44 LATION CUPOLA CHARGER Sheila Zuleta R.N. - 05/13/2014 6:25 AM CST ED Triage Assessment Document Has Been Updated ED Triage Assessment Entered On: 05/13/2014 6:27 INSULATION CUPOLA CHARGER Performed On: 05/13/2014 6:25 INSULATION CUPOLA CHARGER by SHEILA ZULETA RN Reason For Visit (As Of: 05/13/2014 06:27:24 INSULATION CUPOLA CHARGER) Problems(Active) Bleed Nose (ICD-9-CM :784.7 ) Name of Problem: Bleed Nose ; Recorder: SHEILA ZULETA RN; Confirmation: Confirmed ; Classification: Nursing ; Code: 784.7 ; Contributor System: Connectbeam ; Last Updated: 05/13/2014 6:25 INSULATION CUPOLA CHARGER ; Life Cycle Date: 05/13/2014 ; Life [...] Private vehicle Track : Medical Languages : French Treatments Prior to Arrival : None Is Patient Female and 13-50 no hysterectomy : No SHEILA ZULETA RN - 05/13/2014 6:25 INSULATION CUPOLA CHARGER Pain Assessment Pain Symptoms : No SHEILA ZULETA RN - 05/13/2014 6:25 INSULATION CUPOLA CHARGER ED Physician Notification Time ED Physician Notification Time : 05/13/2014 6:27 INSULATION CUPOLA CHARGER SHEILA ZULETA RN - 05/13/2014 6:25 INSULATION CUPOLA CHARGER JOHANN JOHANN Level 1 : No JOHANN Level 2 : No JOHANN Level 3 : Many SHEILA ZULETA RN - 05/13/2014 6:25 INSULATION CUPOLA CHARGER DCP GENERIC CODE Tracking Acuity : 2 -Emergent Tracking Group : [facility] ED SHEILA ZULETA RN - 05/13/2014 6:25 INSULATION CUPOLA CHARGER Allergy (As Of: 05/13/2014 06:27:24 INSULATION CUPOLA CHARGER) Allergies (Active) NKA Estimated Onset Date: Unspecified ; Created By: CARLEY IZMMER; Reaction Status: Active ; Category: Drug ; Substance: NKA ; Type: Allergy ; Updated By: CARLEY ZIMMER; Reviewed Date: 05/10/2014 23:14CST ID Screen Drug Resistant Organism : No Travel Within Last 21 Days : No SHEILA ZULETA RN - 05/13/2014 6:25 INSULATION CUPOLA CHARGER Source: [facility] [employer] Document Id: [id number] INSULATION CUPOLA CHARGER!23 LATION CUPOLA CHARGER documented in this encounter Miscellaneous Notes Miscellaneous - Conversion, Historical Provider Ser - 05/13/2014 7:15 AM INSULATION CUPOLA CHARGER Coding Summary-Paper Based CODING DATE: 05/17/2014 FINAL [facility] STATUS: * Discharged to Home or Self Care PAYOR: Medicare ADMIT DX: 784.7 Epistaxis REASON FOR VISIT DX: 784.7 Epistaxis FINAL DX: PRINCIPAL: 784.7 Epistaxis SECONDARY: 401.9 Unspecified Essential Hypertension PROCEDURES DOCTOR NAME DATE 91295 Control nasal hemorrhage, CHRISTEN SHAIKH 05/13/2014 anterior, [...] MEDLEY Date Saved: 05/17/2014 09:54 am [facility] Document Id: [id number] Maribel - Mariam Sandy RSariahN. - 05/13/2014 7:03 AM CST Valuables/Belongings Valuables/Belongings Entered On: 05/13/2014 7:03 INSULATION CUPOLA CHARGER Performed On: 05/13/2014 7:03 INSULATION CUPOLA CHARGER by MARIAM SANDY RN Valuables/Belongings Belongings Sent Home With : patient MARIAM SANDY RN - 05/13/2014 7:03 INSULATION CUPOLA CHARGER Source: [facility] [employer] Document Id: [id number] INSULATION CUPOLA CHARGER!3 LATION CUPOLA CHARGER Amiecelldalila - Mariam Sandy R.N. - 05/13/2014 6:19 AM CST Facility Charge Ticket 2.0 11.0 DX Facility Charge Ticket 2.0 11.0 DX Entered On: 05/13/2014 7:19 INSULATION CUPOLA CHARGER Performed On: 05/13/2014 6:19 INSULATION CUPOLA CHARGER by MARIAM SANDY RN Facility Charge Ticket [...] Control : 5 Lynx Visit Level : 47720 Level 3 Treatments Prior to Arrival : None MARIAM SANDY RN - 05/13/2014 7:18 INSULATION CUPOLA CHARGER Source: [facility] POWERCHART Document Id: [id number] INSULATION CUPOLA CHARGER!17 LATION CUPOLA CHARGER documented in this encounter Plan of Treatment Not on filedocumented as of this encounter Visit Diagnoses Not on filedocumented in this encounter Additional Health Concerns Assessment Noted Time PHQ-9 Depression Total Score: 3 05/13/2013 2:06 PM INSULATION CUPOLA CHARGER documented as of this encounter
--- OUTSIDE RECORDS SUMMARY | 2022-01-17 20:17 | XMS_ITS | Encounter Summary ---
:1945 Author Organization [facility] Address [address] [place] [address] Care Team Providers Name Role Phone Unavailable Primary Care Provider Unavailable Encounter Details Date Type Department Care Team Description 01/03/2010 Hospital Encounter [facility]X [facility] Marc Martinez, INPT/OBSRV M.D. [address] [place] [phone] (Wo rk) Social History Tobacco Use Types Packs/Day Years Used Date Smoking Tobacco: Never Assessed Sex Assigned at Date Recorded Not on file documented as of this encounter Plan of Treatment Not on filedocumented as of this encounter Visit Diagnoses Not on filedocumented in this encounter
--- OUTSIDE RECORDS SUMMARY | 2022-01-17 20:17 | XMS_ITS | Encounter Summary ---
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 PCP - General Family Medicine 09/19/[address] [place] [address] [phone] documented as of this encounter
--- OUTSIDE RECORDS SUMMARY | 2022-01-17 20:20 | XMS_ITS | Clinical Summary ---
:1945 Author Organization [facility] [place] [address] Care Team Providers Name Role Phone Pcp, No Primary Care Provider Unavailable Allergies No known active allergies Medications Medication Sig Dispensed Refills Start Date End Date Status nystatin powder Apply 1 Strip 1 Bottle 1 04/23/2019 Active (MYCOSTATIN) topically to powderIndications: affected area(s) 4 Rash times daily. doxycycline Take 1 Capsule 90 Capsule 3 03/03/2021 A ctive (VIBRAMYCIN) 100 mg (100 mg) by mouth capsuleIndications: once daily. Rosacea fluticasone (50 mcg Inhale 2 Sprays to 16 g 11 03/03/2021 Active per actuation) nasal both nostrils 2 solution times daily. (FLONASE)Indications: Chronic pansinusitis azelaic acid To cheeks twice 50 g 03/03/2021 Active (FINACEA) 15 % daily for rosacea topical gelIndications: Rosacea amLODIPine (NORVASC) Take 1 Tablet (10 90 tablet. 3 03/03/2021 Active 10 mg mg) by mouth once tabletIndications: daily. Asymptomatic hypertensive urgency ProAir HFA 90 INHALE 2 PUFFS BY 42.5 Each 2 11/24/2021 Active mcg/actuation MOUTH 4 TIMES inhalerIndications: DAILY IF NEEDED Mild intermittent FOR SHORTNESS OF asthma without BREATH 1ST CHOICE. complication Active Problems Problem Noted Date Hypertension 10/21/2017 Morbid obesity with BMI of 50.0-59.9, adult 01/14/2014 Encounters Date Type Specialty Care Team Description 11/21/2021 Refill Roshan Norris MD Ref ill Request (Proair Hfa) from Last 3 Months Immunizations Name Administration Dates Next Due COVID-19 vaccine (Moderna 100mcg/0.5mL) 03/02/2021, 06/10/19 21, 05/11/2020 BUDDY TOMLIN 09/30/2017, 10/08/2011 Family History Medical History Relation [...] Comments Blood Pressure 145/86 03/03/2021 8:55 AM POTATO CHIP PACKAGING MACHINE OPERATOR Pulse 96 03/03/2021 8:48 AM POTATO CHIP PACKAGING MACHINE OPERATOR Temperature 36.8 ??C (98.2 ??F) 03/03/2021 8:48 AM POTATO CHIP PACKAGING MACHINE OPERATOR Respiratory Rate 18 03/03/2021 8:48 AM POTATO CHIP PACKAGING MACHINE OPERATOR Oxygen Saturation 95% 03/03/2021 8:48 AM POTATO CHIP PACKAGING MACHINE OPERATOR Inhaled Oxygen Concentration - - Weight 130.2 kg (287 lb) 04/23/2019 9:33 AM POTATO CHIP PACKAGING MACHINE OPERATOR Height 158 cm (5' 2.21) 12/17/2018 9:03 [...] Type Group MEDICARE - PB MEDICARE PB [id number] 2010-Veronique ATTN : CLAIMS USE ONLY ONLY t [address] [place] [address] [id number] 2004-Cate [facility] OFFICE OF [facility] ATTN: CLAIMS [address] [address] [place] [address] (Home) [place] [phone] Care Teams Electronics Technician Apprentice Relationship Specialty Start Date End Date Pcp, No PCP - General 02/23/21 .
[2022-01-17 20:52] VITALS: BP 156/91
== END 2022-01-17 21:31 | disposition home or self-care (01) ==
PROVIDERS: Emergency Provider Family Medicine; PCP Student in an Organized Health Care Education/Training Program
DX: R04.0 Epistaxis (principal); R03.0 Elevated blood-pressure reading, without diagnosis of hypertension; Z87.891 Personal history of nicotine dependence; F41.8 Other specified anxiety disorders
CPT/HCPCS: 99283; 99284; A9270

== ENCOUNTER 2024-05-01 09:30 | Emergency (ER) | payer MEDICARE, OTHER, SELFPAY ==
[2024-05-01] VITALS (16 sets, daily range): BP systolic 109–167; BP diastolic 65–89; PULSE 81–103; RESP 13–20; TEMP 35.9–36.2; O2SAT 79–97
--- OUTSIDE RECORDS SUMMARY | 2024-05-01 09:41 | XMS_ITS | Encounter Summary ---
Author Organization [facility] Address [address] [place] [address] Care Team Providers Care Electric Blanket Packer Name Role Phone Suhail Lemus M.D. Primary Care Provider [phone] Reason for Visit * Reason Onset Date Comments Communication 04/30/2024 Encounter Details Date Type Department Care Team (Late st Contact Info) Description 04/30/2024 Clinical Communication Department of Family Medicine, [facility], in [address] [phone] Suhail Lemus M.D. [address] [place] [address] [phone] Communication Social History Tobacco Use Types Packs/Day Years Used Date Smoking Tobacco: Former Smokeless Tobacco: Never Alcohol Use Standard Drinks/Week Comments No 0 (1 standard drink = 0.6 oz pur e alcohol) PHQ-2 Answer Date Recorded PHQ-2 Score 6 08/19/2023 Depression Answer Date Recor ded PHQ-9 Total Score (max 27) 15 08/18 Nutrition Answer Date Recorded Nutrition: EVOO Fat Source 13 11/30 Nutrition: Servings of Fruits/Vegetables per Day Not on file 12/01/2019 Dental Answer Date Recorded Dental: Regular Dentist Unknown 05/11/19 21 Comments No Sex and Gender Information Value Date Recorded Sex Assigned at Not on file Legal Sex Female 10:29 AM USPS LETTER CARRIER Gender Identity Not on file Sexual Orientation Not on file documented as of this encounter Plan of Treatment Upcoming Encounters Date Type Department Care Team (Late st Contact Info) Description 05/01/2024 2:00 PM USPS LETTER CARRIER Office Visit Department of Family Medicine, [facility], in [address] [phone] Lauren Perez M.D. [address] [place] [phone] documented as of this encounter Visit Diagnoses Not on filedocumented in this encounter Additional Health Concerns Assessment Noted Time PHQ-9 Depression Total Score: 15 024 11:02 AM CDT documented as of this encounter Care Teams Electric Blanket Packer Relationship Specialty Start Date End Date Suhail Lemus M.D. [address] [place] [phone] PCP - General Family Medicine 09/19/17 documented as of this encounter
--- OUTSIDE RECORDS SUMMARY | 2024-05-01 09:41 | XMS_ITS | Clinical Summary ---
Author Organization [facility] Address [place], [place] [address] Care Team Providers Care Executive Compensation Analyst Name Role Phone Pcp, No Primary Care Provider Unavailabl e Allergies No known active allergies Medications nystatin powder (MYCOSTATIN) powderIndications :Rash Apply 1 Strip topically to affected area(s) 4 times daily. 1 Bottle 1 0 Active doxycycline (VIBRAMYCIN) 100 mg capsuleIndication s:Rosacea Take 1 Capsule (100 mg) by mouth once daily. 90 Capsule 3 1 Active fluticasone (50 mcg per actuation) nasal solution (FLONASE)Indicati ons:Chronic pansinusitis Inhale 2 Sprays to both nostrils 2 times daily. 16 g 11 1 Active azelaic acid (FINACEA) 15 % topical gelIndications:Ro sacea To cheeks twice daily for rosacea 50 g 1 Active amLODIPine (NORVASC) 10 mg tabletIndications :Asymptomatic hypertensive urgency Take 1 Tablet (10 mg) by mouth once daily. 90 tablet. 3 1 Active ProAir HFA 90 mcg/actuation inhalerIndication s:Mild intermittent asthma without complication INHALE 2 PUFFS BY MOUTH 4 TIMES DAILY IF NEEDED FOR SHORTNESS OF BREATH 1ST CHOICE. 42.5 Each 2 2 Active albuterol HFA (PRO-AIR; VENTOLIN; PROVENTIL) 90 mcg/actuation inhalerIndication s:Cough, unspecified type Inhale 2 Puffs by mouth every 4 hours if needed for Shortness of Breath 1st choice or Wheezing 1st choice. For breathing; use with spacer to get a full dose 1 Each 2 3 Active Active Problems Problem Noted Date Diagnosed Date Hypertension 10/21/2017 Morbid obesity with BMI of 50.0-59.9, adult 12/18 Immunizations Name Administration Dates Next Due COVID-19 vaccine (Moderna 10 0mcg/0.5mL) BUDDY TOMLIN 03/02/2021,06/09/2020,05/11/2020 Tdap 09/30/2017,10/08/2011 Family History Medical History Relation Name Comments Heart Disease Father at ag e 45- smoked Other Father obese Other Mother obese Heart Disease Sister 1 at ag e 40 Cancer Sister 2 of nichole g cancer- smoked Relation Name Status Comments Father Mother Sister 1 Sister 2 Social History Tobacco Use Types Packs/Day Years Used Date Smoking Tobacco: Former Cigarettes Q uit: 2000 Smokeless Tobacco: Never Tobacco Cessation:Counseling Given: Yes Comments:quit many years ago Alcohol Use Standard Drinks/Week Comments No 0 (1 standard drink = 0.6 oz pur e alcohol) PHQ-2 Answer Date Recorded PHQ-2 Score 1 12/17/2018 Social Connections Answer Date Recorded Frequency of Communication with Friends and Fami ly Not on file 03/18/2021 Financial Resource Strain Answer Date R ecorded Difficulty of Paying Living Expenses Not on file 03/18/2021 Difficulty of Paying Living Expenses Not on file 03/18/2021 Comments No Sex and Gender Information Value Date Recorded Sex Assigned at Not on file Legal Sex Female 7:40 AM VP BIOLOGY Gender Identity Not on file Sexual Orientation Not on file Obstetrics History Last Filed Vital Signs Vital Sign Reading Time Taken Comments Blood Pressure 145/86 03/03/2021 8:55 AM VP BIOLOGY Pulse 96 03/03/2021 8:48 AM VP BIOLOGY Temperature 36.8 C (98.2 F) 03/03/2021 8:48 AM VP BIOLOGY Respiratory Rate 18 03/03/2021 8:48 AM VP BIOLOGY Oxygen Saturation 95% 03/03/2021 8:48 AM VP BIOLOGY Inhaled Oxygen Concentration - - Weight 130.2 kg (287 lb) 04/23/2019 9:33 AM VP BIOLOGY Height 158 cm (5' 2.21) 12/17/2018 9:03 AM CDT Body Mass Index 52.15 12/17/2018 9:03 AM CDT Plan of Treatment Health Maintenance Due Date Last Done Comments Pneumococcal series for age 50+ (1 of 1 - PCV) 09/16/1995 Zoster (shingles) series for age 50+ (1 of 2) 09/16/1995 DEXA/DXA scan for age 65+ 2010 Medicare Wellness for age 65+ 2010 BMI (ht and wt on same day) for age 18+ 12/18/2019 12/17/2018, 10/31/2017, 10/23/2017, Additional history exists Depression screening for age 12+ 12/18/2019 12/18/19 19, 01/15/2017 RSV vaccine for adults or (1 - 1-dose 75+ series) 2020 COVID-19 vaccine series ( - season) 2023 03/02/2021, 06/09/2020, 05/11/2020 Influenza for age 65+ 11/17/2023 Tetanus booster 10/01/2027 09/30/2017, 10/08/2011 Tdap Completed 09/30/2017, 10/08/2011 Hepatitis C screening for ag e 18-79 Completed 04/23/2019 Procedures Procedure Name Priority Date/Time Associated Diagnosis Comments ANTI HCV Routine 04/23/2019 10:10 AM VP BIOLOGY Need for hepatitis C screening test from Last 3 Months or Most Recently Relevant to Health Maintenance Results * ANTI HCV (04/23/2019 10:10 AM VP BIOLOGY) HEPATITIS C ANTIBODY Non-React molina Non-React molina 04/23/2019 7:19 PM VP BIOLOGY [facility] Comment:Antibodies to HCV no t detected; does not exclude the possibility of exposure to HCV. Blood BLOOD SPECIMEN / Unknown Venipuncture / Unknown 04/23/2019 10:10 AM VP BIOLOGY 04/23/2019 10:13 AM VP BIOLOGY us Kamilla VALLEJO SEND OUTS Final Resu lt [facility] [address] [place] [address], [place] from Last 3 Months or Most Recently Relevant to Health Maintenance Insurance [id number] [place] [phone] MEDICARE PB ONLY [facility] [place] [address] Care Teams Executive Compensation Analyst Relationship Specialty Start Date End Date Pcp, No . PCP - General 02/23/21
--- OUTSIDE RECORDS SUMMARY | 2024-05-01 09:41 | XMS_ITS | Encounter Summary ---
Author Organization [facility] Address [address] [place] [address] Care Team Providers Care Burnisher And Bumper Name Role Phone Suhail Lemus M.D. Primary Care Provider [phone] Reason for Visit * Reason Onset Date Comments Follow-up 05/01/2024 Encounter Details Date Type Department Care Team (Late st Contact Info) Description 05/01/2024 Nurse Triage Department of Family Medicine, [facility], in [address] [phone] Faith Cullen RSariahNSariah [address] [place] [address] Follow-up Social History Tobacco Use Types Packs/Day Years [...] on file Legal Sex Female 10:29 AM METAL HANDLER Gender Identity Not on file Sexual Orientation Not on file documented as of this encounter Miscellaneous Notes * Telephone Encounter - Faith Cullen RSariahN. - 05/01/2024 8:04 AM CST Chief Complaint / Reason for Call Patient is a 78 y.o. female calling regarding Follow-up. Assessment Concern: Daughter Vijaya calls in for her mom Kristen with ongoing concerns. See triage note dated yesterday. She states, she is showing every sign of dementia She reports that Kristen lives with her and she has lost a lot of weight over the last few months, and she brings her meals,but found that Kristen is either throwing it away or hiding it. She has had frequent falls and is very weak. Vijaya reports that last evening she was so concerned about her mom that she moved her into one of her bedrooms in the house and put a camera on her to watch her. Kristen would get tucked in and within 10 minutes she would be up and sitting on the edge of the bed, a couple times, she would be almost off the bed and close to falling. Vijaya reports this went on allnight long. When Vijaya would go in the room and her mom would not respond to her at first. She urinated once and Vijaya reports it was very orange. Kristen is very weak and Vijaya is very concerned she is dehydrated as well as not eating. Vijaya reports Kristen ate 2 strawberries yesterday and nothing else. Present for: ongoing issue. See office visit dated 02/07/24 and triage note dated yesterday, and clinical communication dated yesterday. Home cares tried: see above Calling to request: advice. Vijaya states she is unsure if she can get her mom even into the car, due to her severe weakness. Encouraged Vijaya to bring mom to the ED, if she can not get her into the vehicle to call 911. She agrees and plans to do this. The recommended disposition is Go to ED Now. L HANDLER documented in this encounter Plan of Treatment Upcoming Encounters Date Type Department Care Team (Late st Contact Info) Description 05/01/2024 2:00 PM METAL HANDLER Office Visit Department of Family Medicine, [facility], in [address] [phone] Lauren Perez M.D. [address] [address] [place] [phone] documented as of this encounter Visit Diagnoses Not on filedocumented in this encounter Additional Health Concerns Assessment Noted Time PHQ-9 Depression Total Score: 15 024 11:02 AM CDT documented as of this encounter Care Teams Burnisher And Bumper Relationship Specialty Start Date End Date Suhail Lemus M.D. [address] [place] [phone] PCP - General Family Medicine 09/19/17 documented as of this encounter
--- OUTSIDE RECORDS SUMMARY | 2024-05-01 09:41 | XMS_ITS | Encounter Summary ---
Author Organization [facility] Address [address] [place] [address] Care Team Providers Care Arborer Name Role Phone Suhail Lemus M.D. Primary Care Provider [phone] Encounter Details Date Type Department Care Team (Late st Contact Info) Description 07/28/2012 Historical Ophthalmology RST OPH Agnieszka Harrison M.D. Social History Tobacco Use Types Packs/Day Years Used Date Smoking Tobacco: Never Assessed Comments Unknown Sex and Gender Information Value Date Recorded Sex Assigned at Not on file Legal Sex Female 10:29 AM ADVANCED MANUFACTURING CONSULTANT Gender Identity Not on file Sexual Orientation Not on file documented as of this encounter Progress Notes * Agnieszka Harrison M.D. - 07/28/2012 9:46 AM [...] sclera, left CDM Reports - EYEGEN Id: [id number] Status: Fnl documented in this encounter Plan of Treatment Upcoming Encounters Date Type Department Care Team (Late st Contact Info) Description 05/01/2024 2:00 PM ADVANCED MANUFACTURING CONSULTANT Office Visit Department of Family Medicine, [facility], in [address] [phone] Lauren Perez M.D. [address] [place] [phone] documented as of this encounter Visit Diagnoses Not on filedocumented in this encounter Additional Health Concerns Infection Onset Date Last Indicated Resolved Time COVID19 Pending 10/28/2019 10/28/2019 10/28/2019 1 0:14 PM CDT COVID19 Pending 10/28/2019 10/28/2019 10/30/2019 2 :23 AM CDT COVID19 Pending 12/25/2019 12/25/2019 12/26/2019 2 :16 PM CDT COVID19 Pending 03/17/2020 03/17/2020 03/18/2020 2 :39 PM ADVANCED MANUFACTURING CONSULTANT COVID19 11/14/2022 11/14/2022 12/04/2022 5:47 AM CDT documented as of this encounter Care Teams Arborer Relationship Specialty Start Date End Date Suhail Lemus M.D. [address] [place] [phone] PCP - General Family Medicine 09/19/17 documented as of this encounter
--- OUTSIDE RECORDS SUMMARY | 2024-05-01 09:41 | XMS_ITS | Encounter Summary ---
Author Organization [facility] Address [address] [place] [address] Care Team Providers Care Vice President Marketing & Development Name Role Phone Suhail Lemus M.D. Primary Care Provider [phone] Reason for Referral * Outpatient (Routine) - Authorized Specialty Diagnoses / Procedures Referred By Contac t Referred To Contact Suhail Lemus M.D. [address] [place] [phone] Phone: tel: fax: [facility] Region Referral ID Status Reason Start Date Expiration Date V isits Requested Visits Authorized [id number] Authorized 04/01/2024 10/01/2025 1 1 T TENDER Encounter Details Date Type Department Care Team (Late st Contact Info) Description 04/01/2024 Orders Only Department of Family Medicine, [facility], in [address] [phone] Suhail Lemus M.D. [address] [place] [phone] Social History Tobacco Use Types Packs/Day Years [...] on file Legal Sex Female 10:29 AM SPOUT TENDER Gender Identity Not on file Sexual Orientation Not on file documented as of this encounter Plan of Treatment Upcoming Encounters Date Type Department Care Team (Late st Contact Info) Description 05/01/2024 2:00 PM SPOUT TENDER Office Visit Department of Family Medicine, [facility], in [address] [phone] Lauren Perez M.D. [address] [place] [phone] Scheduled Referrals Name Type Priority Associated Diagnoses Orde r Schedule Primary Care nurse visit (clinic) - [facility] Region; Medicare Annual Wellness Outpatient Referral Routine Expected: 04/02/2024, Expires: 06/30/2025 documented as of this encounter Visit Diagnoses Not on filedocumented in this encounter Additional Health Concerns Assessment Noted Time PHQ-9 Depression Total Score: 15 024 11:02 AM CDT documented as of this encounter Care Teams Vice President Marketing & Development Relationship Specialty Start Date End Date Suhail Lemus M.D. [address] [place] [phone] PCP - General Family Medicine 09/19/17 documented as of this encounter
--- OUTSIDE RECORDS SUMMARY | 2024-05-01 09:41 | XMS_ITS | Clinical Summary ---
Author Organization [facility] Address [address] [place] [address] Care Team Providers Care Dental Hygienist Name Role Phone Suhail Lemus M.D. Primary Care Provider [phone] Source Comments Patient records contain information from all sites at [facility]. For routine questions regarding patient records, call [phone] during business hours, M-F 8:00 AM - 5:00 PM Central Time. Record requests for emergency care only can be directed to [phone] at any time.[facility] Allergies No known active allergies Medications nystatin (NYSTOP) 100,000 unit/gram powder Apply 1 strip topically. 0 Active ProAir HFA 90 mcg/actuation inhaler INHALE 2 PUFFS EVERY 4 HOURS NEEDED FOR WHEEZING OR SHORTNESS OF BREATH 54 g 3 1 Active acetaminophen (TYLENOL) 500 mg tablet Take 500 mg by mouth every 6 (six) hours as needed for pain. Active metroNIDAZOLE (METROGEL) 1 % gel Apply 1 Application topically daily. Apply to face. 60 g 3 3 Active fluticasone propionate (FLONASE) 50 mcg/actuation nasal spray Administer 2 sprays into each nostril daily. 16 g 11 4 Active guaiFENesin (Mucinex) 600 mg 12 hr tablet Take 600 mg by mouth 2 (two) times a day. Active albuterol 90 mcg/actuation inhaler INHALE 2 PUFFS BY MOUTH 4 TIMES DAILY IF NEEDED FOR SHORTNESS OF BREATH. 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, [facility], [address] [phone] Faith Cullen R.N. Follow-up 04/30/[address] Department of [facility], [facility], [address] [phone] Megan Boggs R.N. Abdominal Pain 04/30/2024 Clinical Communication Department of Family [facility], [address] [phone] Suhail Lemus M.D. Communication 04/01/2024 Orders Only Department of Family Medicine, [facility], [address] [phone] Suhail Lemus M.D. 03/05/2024 Clinical Communication Department of Family Medicine, [facility], [address] [phone] Suhail Lemus M.D. Other (Claustrophobia ) 02/14/2024 Refill Department of Family Medicine, [facility], in [address] [phone] Sheila Grace APRN, C.N.P. Med Change Request 02/14/2024 Refill Department of Family Medicine, [facility], in [address] [phone] Suhail Lemus M.D. Med Refill 02/07/2024 11:40 AM [employer] Hospital Encounter Department of Laboratory Medicine in [address] [phone] Juanita Conley M.D. History Of Falling; Injury Head Initial Discharge Disposition: Home or Self Care 02/07/2024 11:39 AM [employer] Hospital Encounter Department of Radiology in [address] [phone] Juanita Conley M.D. History Of Falling; Injury Head Initial; Pain Back Lumbar Discharge Disposition: Home or Self Care 02/07/2024 11:39 AM [employer] Hospital Encounter Department of Radiology in [address] [place] [phone] Juanita Conley M.D. History Of Falling; Injury Head Initial; Pain Thoracic Spine Discharge Disposition: Home or Self Care 02/07/2024 11:39 AM [employer] Hospital Encounter Department of Radiology in [address] [phone] Juanita Conley M.D. History Of Falling; Injury Head Initial; Pain Cervical Discharge Disposition: Home or Self Care 02/07/2024 11:39 AM [employer] Hospital Encounter Department of Radiology in [address] [phone] Juanita Conley M.D. History Of Falling; Injury Head Initial; Pain Shoulder Right Discharge Disposition: Home or Self Care 02/07/2024 11:39 AM [employer] Hospital Encounter Department of Radiology in [address] [phone] Juanita Conley M.D. History Of Falling; Injury Head Initial; Pain Shoulder Right Discharge Disposition: Home or Self Care 02/07/2024 11:00 AM [employer] Office Visit Department of Family Medicine, [facility], in [address] [phone] Juanita Conley M.D. History Of Falling (Primary Dx); Injury Head Initial; Pain Shoulder Right; Pain Cervical; Pain Thoracic Spine; Pain Back Lumbar Discharge Disposition: Home or Self Care 02/06/2024 Nurse Triage Department of Family Medicine, [facility], in [address] [phone] Jada Sanches R.N. Back Pain from Last 3 Months Immunizations Immunization Administration Dates Next Due Influenza, Unspecified 09/07/2022(Deferred: Zenaida ent decision) PCV20 09/07/2022(Deferred: Patient agnieszka hayden) RZV (SHINGRIX) 09/07/2022(Deferred: Patient agnieszka hayden) Tdap 09/30/2017,10/08/2011 Family History Medical History Relation Name Comments Glaucoma Sister Amblyopia Neg Hx Blindness Neg Hx Cataracts Neg Hx Diabetes Neg Hx Hypertension Neg Hx Macular degeneration Neg Hx Retinal degeneration Neg Hx Retinal detachment Neg Hx Relation Name Status Comments Sister Social History Tobacco Use Types Packs/Day Years Used Date Smoking Tobacco: Former Smokeless Tobacco: Never Tobacco Cessation:Counseling Given: Not Answered Alcohol Use Standard Drinks/Week [...] on file Legal Sex Female 10:29 AM [employer] Gender Identity Not on file Sexual Orientation Not on file Last Filed Vital Signs Vital Sign Reading Time Taken Comments Blood Pressure 139/83 02/07/2024 11:02 AM [employer] Pulse 97 02/07/2024 11:02 AM [employer] Temperature 36.9 C (98.4 F) 02/07/2024 11:02 AM [employer] Respiratory Rate 15 09/19/2022 4:05 PM CDT Oxygen Saturation 93% 02/07/2024 11:02 AM [employer] Inhaled Oxygen Concentration - - Weight 104 kg (228 lb 2.9 oz) 02/07/2024 11:02 A M [employer] Height 158.5 cm (5' 2.4) 08/19/2023 10:52 AM CD T Body Mass Index 41.2 08/19/2023 10:52 AM CDT Plan of Treatment Upcoming Encounters Date Type Department Care Team (Late st Contact Info) Description 05/01/2024 2:00 PM [employer] Office Visit Department of Family Medicine, [facility], in [address] [phone] Lauren Perez M.D. [address] [place] [phone] Health Maintenance Due Date Last Done Comments Visit: Medicare Annual Wellness 1945 Pneumococcal vaccine (50+ years) (1 of 2 - PCV) 1964 Zoster Vaccines (1 of 2) 09/16/1995 Hepatitis B Vaccines (1 of 3 - Risk 3-dose series) 2005 Dilated Eye Exam 05/27/2020 05/28/2019, 02/2020, 05/28/2019, Additional history exists RSV vaccine - (32-36 weeks) or 60+ years (1 - 1-dose 75+ series) 2020 Diabetic Office Visit with Foot Exam 09/20/2023 09/19/2022, 09/19/2022 COVID-19 Vaccine ( - season) 2023 03/02/2021, 06/09/2020, 05/11/2020 Influenza Vaccine (#1) 2023 Hemoglobin A1C 02/18/2024 08/19/2023, 06/2 05/2022, 10/30/2021 Depression Screening (Annual PHQ-2) 03/18/2024 Fall Risk Screen (Annual) 03/18/2024 Urine Albumin 08/18/2024 08/19/2023 Visit: Chronic Disease, age 18+ 08/18/2024 08/19/2023, 08/19/2023 Creatinine Level (Kidney Function Test) 02/06/2025 02/07/2024, 08/19/2023, 09/19/2022, Additional history exists Office Visit for Blood Pressure Check / Re-check 02/06/2025 02/07/2024 DTaP,Tdap,and Td Vaccines (3 - Td or Tdap) 10/01/2027 09/30/2017, 10/08/2011 Hepatitis C Screening Completed 09/30/2017 Cologuard Discontinued 09/20/2020, 10/06/2017 Colorectal Cancer Screening Discontinued CT Colonography Discontinued Colonoscopy Discontinued FIT Discontinued IPV Vaccines Aged Out No longer eligi ble based on patient's age to complete this topic Procedures Procedure Name Priority Date/Time Associated Diagnosis Comments DX LUMBAR SPINE 2-3 VIEWS RAD - Routine (most inpatients and all outpatients) 02/07/2024 12:31 PM [employer] History Of Falling Injury Head Initial Pain Back Lumbar DX THORACIC SPINE 2 VIEWS RAD - Routine (most inpatients and all outpatients) 02/07/2024 12:31 PM [employer] History Of Falling Injury Head Initial Pain Thoracic Spine DX CERVICAL SPINE 2-3 VIEWS RAD - Routine (most inpatients and all outpatients) 02/07/2024 12:29 PM [employer] History Of Falling Injury Head Initial Pain Cervical DX HUMERUS RIGHT 2 VIEWS RAD - Routine (most inpatients and all outpatients) 02/07/2024 12:28 PM [employer] History Of Falling Injury Head Initial Pain Shoulder Right DX SHOULDER RIGHT 2+ VIEWS RAD - Routine (most inpatients and all outpatients) 02/07/2024 12:25 PM [employer] History Of Falling Injury Head Initial Pain Shoulder Right BASIC METABOLIC PANEL, S/P Routine 02/07/2024 11:52 AM [employer] History Of Falling Injury Head Initial CBC WITH DIFFERENTIAL, B Routine 02/07/2024 11:52 AM [employer] History Of Falling Injury Head Initial ALBUMIN, RANDOM, U Routine 08/19/2023 12 :14 PM CDT Diabetes Mellitus Type 2 With Diabetic Chronic Kidney Disease (HCC) HEMOGLOBIN A1C, B Routine 08/19/2023 12: 03 PM CDT Diabetes Mellitus Type 2 With Diabetic Chronic Kidney Disease (HCC) Hypertensive Chronic Kidney Disease (CKD) Stage 3a Glomerular Filtration Rate (GFR) 45 To 59 COLOGUARD Routine 09/20/2020 7:30 PM CDT Screening Cancer Colon OPHTHALMOLOGY IMAGE EXAM Routine 05/28/2019 10:05 AM CDT HCV AB SCRN W/REFLEX TO HCV PCR, S Routine 09/30/2017 3:08 PM CDT Screening Test Laboratory from Last 3 Months or Most Recently Relevant to Health Maintenance Results * DX Lumbar Spine 2-3 Views (02/07/2024 12:31 PM [employer]) Anatomical Region Laterality Modality Lumbar Spine, Musculoskeleta l RST LOS, Neuroradiology ARZ LOS, Muskuloskeletal FLA LOS N/A Digital Radiography Impressions 02/07/2024 1:51 PM [employer] Transitional anatomy. There appear to be 11 thoracic vertebra a, 5 lumbar type vertebral bodies and a lumbarized S1 segment. Careful correlation with spinal level would be essential before any intervention. THORACIC: No meaningful change except where specifically noted. No acute fracture by plain radiography. Multiple thoracic vertebrae with mild height loss especially in the mid/lower thoracic spine. Scattered moderate degenerative changes manifesting as anterior osteophytosis. Accentuated mid/lower thoracic kyphosis; this is progressed from 2017. Visualized lungs are clear. Aortic calcification. Limited comparison radiographs 07/12/2016. LUMBAR: No meaningful change except where specifically noted. No acute fracture by plain radiography. Multilevel degenerative disc disease is moderate at L5-S1. Moderate facet degeneration in the lower lumbar spine. Grade 1 anterolisthesis of L3 on L4 and L4 on L5; uncertain whether this is new with respect prior CT given the supine nature of the prior CT and standing nature of the current study. Incidentally imaged hip joint spaces are preserved. Aortic calcification. Nonobstructive bowel gas. Limited comparison CT 09/12/2020. Narrative 02/07/2024 1:51 PM [employer] EXAM: DX THORACIC SPINE 2 VIEWS, DX LUMBAR SPINE 2-3 VIEWS Procedure Note Ede Hoffman M.D. - 02/07/2024 EXAM: DX THORACIC SPINE 2 VIEWS, DX LUMBAR SPINE 2-3 VIEWS IMPRESSION: Transitional anatomy. There appear to be 11 thoracic vertebra a, 5 lumbartype vertebral bodies and a lumbarized S1 segment. Careful correlationwith spinal level would be essential before any intervention. THORACIC: No meaningful change except where specifically noted. No acutefracture by plain radiography. Multiple thoracic vertebrae with mildheight loss especially in the mid/lower thoracic spine. Scattered moderatedegenerative changes manifesting as anterior osteophytosis. Accentuated mid/lower thoracic kyphosis; this isprogressed from 2017. Visualized lungs are clear. Aortic calcification.Limited comparison radiographs 07/12/2016. LUMBAR: No meaningful change except where specifically noted. No acutefracture by plain radiography. Multilevel degenerative disc disease ismoderate at L5-S1. Moderate facet degeneration in the lower lumbar spine.Grade 1 anterolisthesis of L3 on L4 and L4 on L5; uncertain whether this is new with respect prior CT giventhe supine nature of the prior CT and standing nature of the currentstudy. Incidentally imaged hip joint spaces are preserved. Aorticcalcification. Nonobstructive bowel gas. Limited comparison CT 09/12/2020. [facility] PRO CEDURES Final Result * DX Thoracic Spine 2 Views (02/07/2024 12:31 PM [employer]) Anatomical Region Laterality Modality Thoracic Spine, Musculoskele zenon RST LOS, Neuroradiology ARZ LOS, Muskuloskeletal FLA LOS N/A Digita l Radiography Impressions 02/07/2024 1:51 PM [employer] Transitional anatomy. There appear to be 11 thoracic vertebra a, 5 lumbar type vertebral bodies and a lumbarized S1 segment. Careful correlation with spinal level would be essential before any intervention. THORACIC: No meaningful change except where specifically noted. No acute fracture by plain radiography. Multiple thoracic vertebrae with mild height loss especially in the mid/lower thoracic spine. Scattered moderate degenerative changes manifesting as anterior osteophytosis. Accentuated mid/lower thoracic kyphosis; this is progressed from 2017. Visualized lungs are clear. Aortic calcification. Limited comparison radiographs 07/12/2016. LUMBAR: No meaningful change except where specifically noted. No acute fracture by plain radiography. Multilevel degenerative disc disease is moderate at L5-S1. Moderate facet degeneration in the lower lumbar spine. Grade 1 anterolisthesis of L3 on L4 and L4 on L5; uncertain whether this is new with respect prior CT given the supine nature of the prior CT and standing nature of the current study. Incidentally imaged hip joint spaces are preserved. Aortic calcification. Nonobstructive bowel gas. Limited comparison CT 09/12/2020. Narrative 02/07/2024 1:51 PM [employer] EXAM: DX THORACIC SPINE 2 VIEWS, DX LUMBAR SPINE 2-3 VIEWS Procedure Note Ede Hoffman M.D. - 02/07/2024 EXAM: DX THORACIC SPINE 2 VIEWS, DX LUMBAR SPINE 2-3 VIEWS IMPRESSION: Transitional anatomy. There appear to be 11 thoracic vertebra a, 5 lumbartype vertebral bodies and a lumbarized S1 segment. Careful correlationwith spinal level would be essential before any intervention. THORACIC: No meaningful change except where specifically noted. No acutefracture by plain radiography. Multiple thoracic vertebrae with mildheight loss especially in the mid/lower thoracic spine. Scattered moderatedegenerative changes manifesting as anterior osteophytosis. Accentuated mid/lower thoracic kyphosis; this isprogressed from 2017. Visualized lungs are clear. Aortic calcification.Limited comparison radiographs 07/12/2016. LUMBAR: No meaningful change except where specifically noted. No acutefracture by plain radiography. Multilevel degenerative disc disease ismoderate at L5-S1. Moderate facet degeneration in the lower lumbar spine.Grade 1 anterolisthesis of L3 on L4 and L4 on L5; uncertain whether this is new with respect prior CT giventhe supine nature of the prior CT and standing nature of the currentstudy. Incidentally imaged hip joint spaces are preserved. Aorticcalcification. Nonobstructive bowel gas. Limited comparison CT 09/12/2020. us Juanita Conley M.D. [facility] PRO CEDURES Final Result * DX Cervical Spine 2-3 Views (02/07/2024 12:29 PM [employer]) Anatomical Region Laterality Modality Cervical Spine, Musculoskele zenon RST LOS, Neuroradiology ARZ LOS, Muskuloskeletal FLA LOS N/A Digita l Radiography Impressions 02/07/2024 1:43 PM [employer] Moderate to advanced facet degeneration bilaterally throughout the cervical spine. Mild multilevel degenerative disc disease. Accentuated thoracic kyphosis. Ossification of the nuchal ligament. Presumed consultations carotid bulb on the left. If there is persistent moderate or worsening concern for fracture, CT on MRI would be appropriate. Narrative 02/07/2024 1:43 PM [employer] EXAM: DX CERVICAL SPINE 2-3 VIEWS Procedure Note Ede Hoffman M.D. - 02/07/2024 EXAM: DX CERVICAL SPINE 2-3 VIEWS IMPRESSION: Moderate to advanced facet degeneration bilaterally throughout thecervical spine. Mild multilevel degenerative disc disease. Accentuatedthoracic kyphosis. Ossification of the nuchal ligament. Presumedconsultations carotid bulb on the left. If there is persistent moderate or worsening concern for fracture, CT onMRI would be appropriate. us Juanita Conley M.D. [facility] PRO CEDURES Final Result * DX Humerus Right 2 Views (02/07/2024 12:28 PM [employer]) Anatomical Region Laterality Modality Upper Extremity, Humerus, Mu sculoskeletal RST LOS, Musculoskeletal ARZ LOS, Muskuloskeletal FLA LOS Right Digit al Radiography Impressions 02/07/2024 1:42 PM [employer] No direct comparison. 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 Alignment normal. No acute fracture. In the right humerus, there is no acute fracture or periosteal reaction. Narrative 02/07/2024 1:42 PM [employer] EXAM: DX SHOULDER RIGHT 2+ VIEWS, DX HUMERUS RIGHT 2 VIEWS Procedure Note Navi Schmitz M.D. - 02/07/2024 EXAM: DX SHOULDER RIGHT 2+ VIEWS, DX HUMERUS RIGHT 2 VIEWS IMPRESSION: No direct comparison. In the right shoulder, there is moderate glenohumeral andacromioclavicular joint osteoarthritis. Alignment normal. No acutefracture. In the right humerus, there is no acute fracture or periosteal reaction. us Juanita Conley M.D. [facility] [employer] Final Result * DX Shoulder Right 2+ Views (02/07/2024 12:25 PM [employer]) Anatomical Region Laterality Modality Upper Extremity, Shoulder, M usculoskeletal RST LOS, Musculoskeletal ARZ LOS, Muskuloskeletal FLA LOS Right Digit al Radiography Impressions 02/07/2024 1:42 PM [employer] No direct comparison. 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 Alignment normal. No acute fracture. In the right humerus, there is no acute fracture or periosteal reaction. Narrative 02/07/2024 1:42 PM [employer] EXAM: DX SHOULDER RIGHT 2+ VIEWS, DX HUMERUS RIGHT 2 VIEWS Procedure Note Navi Schmitz M.D. - 02/07/2024 EXAM: DX SHOULDER RIGHT 2+ VIEWS, DX HUMERUS RIGHT 2 VIEWS IMPRESSION: No direct comparison. In the right shoulder, there is moderate glenohumeral andacromioclavicular joint osteoarthritis. Alignment normal. No acutefracture. In the right humerus, there is no acute fracture or periosteal reaction. us Juanita Conley M.D. [facility] PRO CEDURES Final Result * (ABNORMAL) CBC with Differential, Blood (02/07/2024 11:52 AM [employer]) [facility] Hemoglobin 15.7(H) 11.6 - 15.0 g/dL 02/07/2024 11:59 AM [employer] CNFL Hematocrit 49.8(H) 35.5 - 44.9 % 02/07/2024 11:59 AM [employer] CNFL Erythrocytes 5.92(H) 3.92 - 5.13 x10(12)/L 02/07/2024 11:59 AM [employer] CNFL MCV 84.1 78.2 - 97.9 fL 02/07/2024 11:59 AM [employer] CNFL RBC Distrib Width 15.2 12.2 - 16.1 % 02/07/2024 11:59 AM [employer] CNFL Platelet Count 250 157 - 371 x10(9)/L 02/07/2024 11:59 AM [employer] CNFL Leukocytes 8.9 3.4 - 9.6 x10(9)/L 02/07/2024 11:59 AM [employer] CNFL Neutrophils 7.00(H) 1.56 - 6.45 x10(9)/L 02/07/2024 11:59 AM [employer] CNFL Lymphocytes 1.25 0.95 - 3.07 x10(9)/L 02/07/2024 11:59 AM [employer] CNFL Monocytes 0.50 0.26 - 0.81 x10(9)/L 02/07/2024 11:59 AM [employer] CNFL Eosinophils 0.09 0.03 - 0.48 x10(9)/L 02/07/2024 11:59 AM [employer] CNFL Basophils 0.04 0.01 - 0.08 x10(9)/L 02/07/2024 11:59 AM [employer] CNFL Blood (Blood, Venous) 02/07/2024 11:52 AM [employer] 02/07/2024 11:54 AM [employer] us Juanita Conley M.D. LAB BLOOD ADD-ON Final Res ult [facility] [address] [place] [id number], [facility] [place] [address] * (ABNORMAL) Basic Metabolic Panel (02/07/2024 11:52 AM [employer]) Potassium, P 3.9 3.6 - 5.2 mmol/L 02/07/2024 12:13 PM [employer] CNFL Sodium, P 141 135 - 145 mmol/L 02/07/2024 12:13 PM [employer] CNFL Chloride, P 102 98 - 107 mmol/L 02/07/2024 12:13 PM [employer] CNFL Bicarbonate, P 34(H) 22 - 29 mmol/L 02/07/2024 12:13 PM [employer] CNFL Anion Gap, P 5(L) 7 - 15 02/07/2024 12:13 PM [employer] CNFL BUN (Blood Urea Nitrogen), P 15 6 - 21 mg/dL 02/07/2024 12:13 PM [employer] CNFL Creatinine 0.84 0.59 - 1.04 mg/dL 02/07/2024 12:13 PM [employer] CNFL Estimated GFR (eGFR) 71 >=60 mL/min/BSA 02/07/2024 12:13 PM [employer] CNFL Comment: Estimated GFR calculated using the 2020 CKD_EPI creatinine equation. Calcium, Total, P 9.7 8.8 - 10.2 mg/dL 02/07/2024 12:13 PM [employer] CNFL Glucose, P 117 70 - 140 mg/dL 02/07/2024 12:13 PM [employer] CNFL Blood (Blood, Venous) 02/07/2024 11:52 AM [employer] 02/07/2024 11:54 AM [employer] Juanita Conley M.D. LAB BLOOD ADD-ON Final Res ult [facility] [address] [place] [id number], [facility] CNFL [facility] in [address] [address] * Albumin, Random, Urine (08/19/2023 12:14 PM CDT) Microalbumin <12.0 mg/L 08/19/2023 12:28 PM CDT CNFL Comment:If clinically indica arabella, contact the lab for additional testing. Creatinine 78 mg/dL 08/19/2023 12:28 PM CDT CNFL Albumin/Creatinine Ratio <15 <25 mg/g 08/19/2023 12:28 PM CDT CNFL Comment: This ratio may not correspond with the reference range because one or both of the values used to calculate the ratio was above or below the quantification limits. Urine (Urine, Midstream) 08/19/2023 12:14 PM CDT 08/19/2023 12:14 PM CDT Suhail Lemus M.D. LAB URINE ORDERABLES Elena l Result Performing Organization Address [facility] Co de Phone Number [facility] [address] [place] [address], [address] [address] * (ABNORMAL) Hemoglobin A1c (08/19/2023 12:03 PM CDT) Hemoglobin A1c, B 6.4(H) 4.2 - 5.6 % 08/19/2023 12:24 PM CDT CNFL Comment: Hemoglobin A1c values of 5.7-6.4 percent indicate an increased risk for developing diabetes mellitus. In diabetic patients, HbA1c goals should be discussed with healthcare provider. Blood (Blood, Venous) 08/19/2023 12:03 PM CDT 08/19/2023 12:09 PM CDT Lauren Bailey M.D. LAB BLOOD ADD-ON Final Result [facility] [address] [place] [id number], [address] [address] * Cologuard-Sent Out Lab (09/20/2020 7:30 PM CDT) Result Negative Negative 09/28/2020 4:46 PM CDT EXLI Comment: NEGATIVE TEST RESULT. A negative Cologuard result indicates a low likelihood that a colorectal cancer (CRC) or advanced adenoma (adenomatous polyps with more advanced pre-malignant features) is present. The chance that a person with a negative Cologuard test has a colorectal cancer is less than 1 in 1500 (negative predictive value >99.9%) or has an advanced adenoma is less than 5.3% (negative predictive value 94.7%). These data are based on a prospective cross-sectional study of 10,000 individuals at average risk for colorectal cancer who were screened with both Cologuard and colonoscopy. (Courtney Vick al, N Engl J Med 2014;370(14):1349-9638) The normal value (reference range) for this assay is negative. COLOGUARD RE-SCREENING RECOMMENDATION: Periodic colorectal cancer screening is an important part of preventive healthcare for asymptomatic individuals at average risk for colorectal cancer. Following a negative Cologuard result, the [place] Cancer Society and U.S. Multi-Society Task Force screening guidelines recommend a Cologuard re-screening interval of 3 years. References: [place] [employer] Guideline for Colorectal Cancer Screening: https://www.cancer.org/cancer/rdkpg-yekiav-steubu/detection- diagnosis-staging/acs-recommendations.html.; Bashir DK, Marie MOYA, Karen ReichK, Colorectal Cancer Screening: Recommendations for Physicians and Patients from the U.S. Multi-Society Task Force on Colorectal Cancer Screening , Am J Gastroenterology 2017; 112:3693-5591. TEST DESCRIPTION: Composite algorithmic analysis of stool DNA-biomarkers with hemoglobin immunoassay. Quantitative values of individual biomarkers are not reportable and are not associated with individual biomarker result reference ranges. Cologuard is intended for colorectal cancer screening of adults of either sex, 45 years or older, who are at average-risk for colorectal cancer (CRC). Cologuard has been approved for use by the U.S. FDA. The performance of Cologuard was established in a cross sectional study of average-risk adults aged 50-84. Cologuard performance in patients ages 45 to 49 years was estimated by sub-group analysis of near-age groups. Colonoscopies performed for a positive result may find as the most clinically significant lesion: colorectal cancer [4.0%], advanced adenoma (including sessile serrated polyps greater than or equal to 1cm diameter) [20%] or non- advanced adenoma [31%]; or no colorectal neoplasia [45%]. These estimates are derived from a prospective cross-sectional screening study of 10,000 individuals at average risk for colorectal cancer who were screened with both Cologuard and colonoscopy. (Courtney Vick al, N Engl J Med 2014;370(14):8277-6767.) Cologuard may produce a false negative or false positive result (no colorectal cancer or precancerous polyp present at colonoscopy follow up). A negative Cologuard test result does not guarantee the absence of CRC or advanced adenoma (pre-cancer). The current Cologuard screening interval is every 3 years. ([place] [employer] Society and U.S. Multi-Society Task Force). Cologuard performance data in a 10,000 patient pivotal study using colonoscopy as the reference method can be accessed at the following location: www.[employer].SiteBrains/results. Additional description of the Cologuard test process, warnings and precautions can be found at www.cologuard.com. Stool (Stool) 09/20/2020 7:3 0 PM CDT 09/23/2020 2:57 PM CDT us Lise Espinosa LAB BODY FLUIDS AND STOOLS O RDERABLES Final Result Performing Organization Address [facility] Co de Phone Number [employer] [address] [place] [phone] [employer] [employer] [address] [facility], [address] [place] [address] * Eyes Color-Ophthalmology Image Exam (05/28/2019 10:05 AM CDT) 05/28/2019 12:0 0 PM CDT Narrative [facility] - 05/28/2019 10:05 AM CDT This order has been created and auto-finalized to support the import of images acquired without order. The clinical documentation to support these images can be found on the encounter that produced images. us Provider Not In System IMG NON RAD IMAGING PROCE DURES Final Result Performing Organization Address [facility] Co de Phone Number [facility] NA * HCV Ab Scrn w/Reflex to HCV PCR, Serum (09/30/2017 3:08 PM CDT) HCV Ab Screen, S Nonreactive Nonreactive 10/01/2017 10:53 AM CDT [facility] Blood (Blood, Venous) 09/30/2017 3:08 PM CDT 09/30/2017 10:06 PM CDT Narrative [facility] - 10/01/2017 10:53 AM CDT Specimen Information: Specimen ID: [id number] Specimen Type: Blood Specimen Collection Start Date: 09/30/2017 3:08 PM Specimen Received Date: 09/30/2017 10:06 PM Specimen ID: [id number] Specimen Type: Blood Specimen Collection Start Date: 09/30/2017 3:09 PM Specimen Received Date: 09/30/2017 10:06 PM Suhail Lemus M.D. LAB MICROBIOLOGY - BLOOD ORDERABLES Final Result [facility] [address] [place] [address] from Last 3 Months or Most Recently Relevant to Health Maintenance Insurance MEDICARE [facility] Night Up Care Teams Dental Hygienist Relationship Specialty Start Date End Date Suhail Lemus M.D. [address] [place] [phone] PCP - General Family Medicine 09/19/17
--- OUTSIDE RECORDS SUMMARY | 2024-05-01 09:41 | XMS_ITS | Encounter Summary ---
Author Organization [facility] Address [address] [place] [address] Care Team Providers Care Ballast Cleaning Machine Operator Name Role Phone Suhail Lemus M.D. Primary Care Provider [phone] Encounter Details Date Type Department Care Team (Late st Contact Info) Description 07/25/2012 Historical Ophthalmology RST OPH Agnieszka Harrison M.D. Social History Tobacco Use Types Packs/Day Years Used Date Smoking Tobacco: Never Assessed Comments Unknown Sex and Gender Information Value Date Recorded Sex Assigned at Not on file Legal Sex Female 10:29 AM JITNEY DRIVER Gender Identity Not on file Sexual Orientation Not on file documented as of this encounter Progress Notes * Agnieszka Harrison M.D. - 07/25/2012 10:07 AM CDT Eye General CHIEF COMPLAINT Both eyes, foreign body sensation, blurry vision. HISTORY OF PRESENT ILLNESS Both eyes, foreign body sensation, blurry vision, months, and getting worse . Film in eyes. Pt was seen in Derm and has rosacea, they believe she may have ocular rosacea. Patient now has foreign bodysensation and blurry vision. On abx for rosacea on her face. and ER eye visit was ordered by derm. Tried Thera tears the other night , feels like sand in them, drops made it feel dryer. No new floaters. No flashes of light. Right eye floaters. No diplopia. Eyes ache a little, sometimes. Dry eyes all the time, scratch and hurt, rubs them. No redness. Stuff in eyes when wakes up in the morning. RCM: Pt recently had rosacea diagnosed and her PCP is concerned that it is affecting her eyes. About 1 year ago she notices that she would wake up with blurry vision. She c/o sand in her eyes, blurryvision. 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 [address] [place] [phone] documented as of this encounter Visit Diagnoses Not on filedocumented in this encounter Additional Health Concerns Infection Onset Date Last Indicated Resolved Time COVID19 Pending 10/28/2019 10/28/2019 10/28/2019 1 0:14 PM CDT COVID19 Pending 10/28/2019 10/28/2019 10/30/2019 2 :23 AM CDT COVID19 Pending 12/25/2019 12/25/2019 12/26/2019 2 :16 PM CDT COVID19 Pending 03/17/2020 03/17/2020 03/18/2020 2 :39 PM JITNEY DRIVER COVID19 11/14/2022 11/14/2022 12/04/2022 5:47 AM CDT documented as of this encounter Care Teams Ballast Cleaning Machine Operator Relationship Specialty Start Date End Date Suhail Lemus M.D. [address] [place] [phone] PCP - General Family Medicine 09/19/17 documented as of this encounter
--- OUTSIDE RECORDS SUMMARY | 2024-05-01 09:41 | XMS_ITS | Clinical Summary ---
Author Organization [facility] Address [address] [address] Phone Care Team Providers Care Heavy Line Technician Name Role Phone Bautista, Ta Loya MD Primary Care Provider [phone] Allergies No known active allergies Medications Naproxen Sodium 220 MG CAPS Take 1 Cap by mouth. 60 Cap 2 Active HYDROcodone-ac etaminophen (LORTAB) 10-500 MG per tablet Take 1-2 Tabs by mouth every six hours as needed for Pain. Acetaminophen should be limited to 4000 mg per day. 30 Tab 0 2 Active HYDROcodone-ac etaminophen (NORCO) 10-325 MG per tablet Take 1-2 Tabs by mouth every six hours as needed for Pain. Acetaminophen should be limited to 4000 mg per day. 30 Tab 0 2 Active Active Problems Problem Noted Date Diagnosed Date Obesity 10/08/2011 Right knee meniscal tear 10/08/2011 Carpal tunnel syndrome 08/07/2011 Immunizations Name Administration Dates Next Due Tdap (7 years and older) 10/08/2011 Surgical History Surgery Date Site/Laterality Comments VAGINAL HYSTERECTOMY 08/24/2002 Laparoscopic with BSO. REPAIR SLIDING INGUINAL HERNIA 1957 REVISE MEDIAN N/CARPAL TUNNE L SURG 08/20/2011 Left. KNEE SCOPE,MED/LAT MENISCECTOMY 10/10/2011 Right knee. Medical History Medical History Date Comments Other chest pain 11/15/2004 Probably pleuri tic Fam hx-cardiovas dis NEC 11/15/2004 FH of c ardiac problems Obesity, unspecified 11/15/2004 Tobacco use disorder 11/15/2004 Dysmenorrhea 08/17/2002 With menometrorr hagia and fibroid involvement of uterus on US. Achilles bursitis or tendinitis 10/14/2001 Right heel Family History Medical History Relation Comments Cardiovascular Disease Other Brother w ith heart attack at the age of 45 and noted with hypertension. Noted in mother, father, and a sister who are . Relation Status Comments Father (Age 45) Heart attack Mother (Age 68) [place] Other Sister (Age 40) Heart attack. Social History Tobacco Use Types Packs/Day Years Used Date Smoking Tobacco: Former Cigarettes Q uit: 08/06/1996 Smokeless Tobacco: Never Comments:Quit sometime aroun d 1999. Alcohol Use Standard Drinks/Week Comments No 0 (1 standard drink = 0.6 oz pur e alcohol) Comments No Sex and Gender Information Value Date Recorded Sex Assigned at Not on file Legal Sex Female 12:07 PM ORTHOTIST Gender Identity Not on file Sexual Orientation Not on file Obstetrics History Para Term AB IAB SAB Ectopic Molar Multiple Living Live Births 3 3 0 0 0 0 0 0 3 Date Outcome GA Total Labor Labor/2nd/3rd Weight Sex Type Anes PTL Mary A1 A5 Name Clin Para Para Para Last Filed Vital Signs Vital Sign Reading Time Taken Comments Blood Pressure 134/80 10/23/2011 1:53 PM CDT Pulse 88 10/08/2011 1:47 PM CDT Temperature - - Respiratory Rate 24 09/25/2011 1:22 PM CDT Oxygen Saturation - - Inhaled Oxygen Concentration - - Weight 137.9 kg (304 lb) 10/23/2011 1:53 PM CDT Height 160 cm (5' 3) 10/23/2011 1:53 PM CDT Body Mass Index 53.85 10/23/2011 1:53 PM CDT Plan of Treatment Health Maintenance Due Date Last Done Comments Pneumococcal Vaccine: 50+ yr s (Standing Order) (1 of 1 - PCV) 09/16/1995 Shingrix (Zoster recombinant ) vaccine (Standing Order) (1 of 2) 09/16/1995 DXA,FEMALES AGE 65 OR GREATER 2010 RSV Vaccination (60+ yrs) (Abrysvo/Arexvy) (1 - 1-dose 75+ series) 2020 TETANUS (Standing Order) 10/07/2021 10/08/2011 COVID-19 Vaccine (2023-2 5 season) 2023 Influenza Vaccine Seasonal (Standing Order) (#1) 2023 PERTUSSIS (Standing Order) Completed 10/08/2011 HPV Vaccine (Standing Order) Aged Out No longer eligible based on patient's age to complete this topic Hepatitis B Vaccine (Standin g Order) Aged Out No longer eligible b ased on patient's age to complete this topic Insurance MEDICARE PART A & B [facility] [place] [address] Care Teams Heavy Line Technician Relationship Specialty Start Date End Date Ta Bautista MD PCP - General Family Medicine 03/13/11
--- OUTSIDE RECORDS SUMMARY | 2024-05-01 09:41 | XMS_ITS | Encounter Summary ---
Author Organization [facility] Address [address] [place] [address] Care Team Providers Care Saturator Operator Name Role Phone Suhail Lemus M.D. Primary Care Provider [phone] Encounter Details Date Type Department Care Team (Late st Contact Info) Description 09/23/2014 Historical Ophthalmology RST OPH Alicia Lay M.D. Social History Tobacco Use Types Packs/Day Years Used Date Smoking Tobacco: Never Assessed Comments Unknown Sex and Gender Information Value Date Recorded Sex Assigned at Not on file Legal Sex Female 10:29 AM LODE MINER Gender Identity Not on file Sexual Orientation Not on file documented as of this encounter Progress Notes * Alicia Lay M.D. - 09/23/2014 8:46 AM [...] to see clearly again. When she tried artificial tears a few times a day for months [...] 2 weeks. If this helps, she can returnfor option of punctal plugs. She can continue doxycycline (which she has not been using for her rosacea) which can help with herocular rosacea if she tolerates the medication. Genteal gel at night Dry eye educational pamphlet dispensed #3 Left scleral melanocytosis Discussed that patient requires dilated exams every 1-2 years. Patient today declined gonioscopy ordilated exam and would like to do this [...] on CPAP CDM Reports - EYEGEN Id: [id number] Status: Fnl documented in this encounter Plan of Treatment Upcoming Encounters Date Type Department Care Team (Late st Contact Info) Description 05/01/2024 2:00 PM LODE MINER Office Visit Department of Family Medicine, [facility], in [address] [phone] Lauren Perez M.D. [address] [place] [phone] documented as of this encounter Visit Diagnoses Not on filedocumented in this encounter Additional Health Concerns Infection Onset Date Last Indicated Resolved Time COVID19 Pending 10/28/2019 10/28/2019 10/28/2019 1 0:14 PM CDT COVID19 Pending 10/28/2019 10/28/2019 10/30/2019 2 :23 AM CDT COVID19 Pending 12/25/2019 12/25/2019 12/26/2019 2 :16 PM CDT COVID19 Pending 03/17/2020 03/17/2020 03/18/2020 2 :39 PM LODE MINER COVID19 11/14/2022 11/14/2022 12/04/2022 5:4 7 AM CDT Assessment Noted Time PHQ-9 Depression Total Score: 3 05/13/19 14 2:06 PM LODE MINER documented as of this encounter Care Teams Saturator Operator Relationship Specialty Start Date End Date Suhail Lemus M.D. [address] [place] [phone] PCP - General Family Medicine 09/19/17 documented as of this encounter
--- OUTSIDE RECORDS SUMMARY | 2024-05-01 09:41 | XMS_ITS | Encounter Summary ---
Author Organization [facility] Address [address] [place] [address] Care Team Providers Care Motor Operator Name Role Phone Suhail Lemus M.D. Primary Care Provider [phone] Reason for Visit * Reason Onset Date Comments Abdominal Pain 04/30/2024 Encounter Details Date Type Department Care Team (Late st Contact Info) Description 04/30/2024 Nurse Triage Department of Family Medicine, [facility], in [address] [phone] Megan Boggs RSariahN. [address] [place] [phone] Abdominal Pain Social History Tobacco Use Types Packs/Day Years [...] on file Legal Sex Female 10:29 AM PREPARER Gender Identity Not on file Sexual Orientation Not on file documented as of this encounter Miscellaneous Notes * Telephone Encounter - Megan Boggs RSariahN. - 04/30/2024 2:15 PM PREPARER Chief Complaint / Reason for Call Patient is a 78 y.o. female calling regarding Abdominal Pain. Assessment Concern: poor appetite; weight loss; states she lost over 100 pounds in the last month to 6 weeks; drinks a lot of fluids; goes to the bathroom a lot; urine is dark; doesn't have a bowel movement every day; feels a discomfort below her belly button to the left; some nausea Present for: over a month Home cares tried: taking in fluids Calling to request: appointment The recommended disposition is See a health care provider within 24 hours. Plan; An appointment was made via one click. Care Advice Patient/Caregiver understands and will follow care advice?: Yes, able to teach back Abdominal Pain - Bukpwv-Dsppx-SH Nurse Megan Schroeder Apr 30, 2024 02:20 PM Care Advice DIET: * Drink adequate fluids. Eat a bland diet. * Avoid alcohol or caffeinated beverages * Avoid greasy or fatty foods. CALL BACK IF: * Severe pain lasts over 1 hour * Constant pain lasts over 2 hours * You become worse Reason for Disposition [1] MILD pain (e.g., does not interfere with normal activities) AND [2] pain comes and goes (cramps) AND [3] present > 48 hours (Exception: This same abdominal pain is a chronic symptom recurrent or ongoing AND present > 4 weeks.) Protocols used: Abdominal Pain - [facility] ARER documented in this encounter Plan of Treatment Upcoming Encounters Date Type Department Care Team (Late st Contact Info) Description 05/01/2024 2:00 PM PREPARER Office Visit Department of Family Medicine, [facility], in [address] [phone] Lauren Perez M.D. [address] [place] [phone] documented as of this encounter Visit Diagnoses Not on filedocumented in this encounter Additional Health Concerns Assessment Noted Time PHQ-9 Depression Total Score: 15 024 11:02 AM CDT documented as of this encounter Care Teams Motor Operator Relationship Specialty Start Date End Date Suhail Lemus M.D. [address] [phone] PCP - General Family Medicine 09/19/17 documented as of this encounter
[2024-05-01 10:05] LABS: Lactate* 2.4 mmol/L (0.5-1.9)
[2024-05-01 10:11] LABS: Hematocrit 52.2 % (33.0-51.0); Hemoglobin* 15.4 gm/dL (12.0-16.0); Immature Granulocytes Abs Auto 0.13 K/uL (0.00-0.30); Immature Granulocytes Pct Auto 1.2 %; Lymphocytes Percent Auto 2.9 % (20-44); Mean Corpuscular HGB Conc 30 gm/dL (32-36); Mean Corpuscular Hemoglobin 26 pg (26-34); Mean Corpuscular Volume 89 fL (80-100); Monocytes Percent Auto 5.6 % (0.0-11.0); Neutrophils Percent Auto 90.3 % (42.0-72.0); Platelet Count* 256 K/uL (140-440); RDW Coefficient of Variation % 15.7 % (11.5-15.5); Red Blood Count 5.85 m/uL (4.00-5.20)
[2024-05-01 10:16] LABS: Slide Review Reflex No
[2024-05-01 10:16] LABS: Troponin, Point-of-Care* 0.42 ng/ml (0.01-0.04)
--- OUTSIDE RECORDS SUMMARY | 2024-05-01 10:18 | XMS_ITS | Encounter Summary ---
Author Organization [facility] Address [address] [place] [address] Care Team Providers Care Hand Loom Weaver Name Role Phone Suhail Lemus M.D. Primary Care Provider [phone] Reason for Visit * Reason Onset Date Comments Communication 04/30/2024 Encounter Details Date Type Department Care Team (Late st Contact Info) Description 04/30/2024 Clinical Communication Department of Family Medicine, [facility], in [address] [phone] Suhail Lemus M.D. [address] [place] [phone] Communication Social History Tobacco Use Types Packs/Day [...] on file Legal Sex Female 10:29 AM DATA CONSULTANT Gender Identity Not on file Sexual Orientation Not on file documented as of this encounter Plan of Treatment Upcoming Encounters Date Type Department Care Team (Late st Contact Info) Description 05/01/2024 2:00 PM DATA CONSULTANT Office Visit Department of Family Medicine, [facility], in [address] [phone] Lauren Perez M.D. [address] [place] [phone] documented as of this encounter Visit Diagnoses Not on filedocumented in this encounter Additional Health Concerns Assessment Noted Time PHQ-9 Depression Total Score: 15 024 11:02 AM CDT documented as of this encounter Care Teams Hand Loom Weaver Relationship Specialty Start Date End Date Suhail Lemus M.D. [address] [place] [phone] PCP - General Family Medicine 09/19/17 documented as of this encounter
--- OUTSIDE RECORDS SUMMARY | 2024-05-01 10:18 | XMS_ITS | Clinical Summary ---
Author Organization [facility] Address [address] [address] Phone Care Team Providers Care Senior Materials Planner Name Role Phone Bautista, Ta Loya MD Primary Care Provider [phone] Allergies No known active allergies Medications Naproxen [...] (Age 45) Heart attack Mother (Age 68) [place] Other Sister (Age 40) Heart attack. Social [...] on file Legal Sex Female 12:07 PM PAIRER ODDS Gender Identity Not on file Sexual Orientation [...] topic Insurance MEDICARE PART A & B [facility] [place] [address] Care Teams Senior Materials Planner Relationship Specialty Start Date End Date Ta Bautista MD PCP - General Family Medicine 03/13/11
--- OUTSIDE RECORDS SUMMARY | 2024-05-01 10:18 | XMS_ITS | Encounter Summary ---
Author Organization [facility] Address [address] [place] [address] Care Team Providers Care Loan Officer Assistant Name Role Phone Suhail Lemus M.D. Primary Care Provider [phone] Reason for Referral * Outpatient (Routine) - Authorized Specialty Diagnoses / Procedures Referred By Contac t Referred To Contact Suhail Lemus M.D. [address] [place] [phone] Phone: tel: fax: [facility] Region Referral ID Status Reason Start Date Expiration Date V isits Requested Visits Authorized [id number] Authorized 04/01/2024 10/01/2025 1 1 ITY CONTROL TECHNICIAN Encounter Details Date Type Department Care Team (Late st Contact Info) Description 04/01/2024 Orders Only Department of Family Medicine, [facility], in [address] [phone] Suhail Lemus M.D. [address] [place] [phone] Social History Tobacco Use Types Packs/Day Years [...] on file Legal Sex Female 10:29 AM QUALITY CONTROL TECHNICIAN Gender Identity Not on file Sexual Orientation Not on file documented as of this encounter Plan of Treatment Upcoming Encounters Date Type Department Care Team (Late st Contact Info) Description 05/01/2024 2:00 PM QUALITY CONTROL TECHNICIAN Office Visit Department of Family Medicine, [facility], in [address] [phone] Lauren Perez M.D. [address] [place] [phone] Scheduled Referrals Name Type Priority Associated Diagnoses Orde r Schedule Primary Care nurse visit (clinic) - [facility] Region; Medicare Annual Wellness Outpatient Referral Routine Expected: 04/02/2024, Expires: 06/30/2025 documented as of this encounter Visit Diagnoses Not on filedocumented in this encounter Additional Health Concerns Assessment Noted Time PHQ-9 Depression Total Score: 15 024 11:02 AM CDT documented as of this encounter Care Teams Loan Officer Assistant Relationship Specialty Start Date End Date Suhail Lemus M.D. [address] [place] [phone] PCP - General Family Medicine 09/19/17 documented as of this encounter
[2024-05-01 10:19] LABS: Creatinine, Point-of-Care* 1.7 mg/dl (0.6-1.3)
--- OUTSIDE RECORDS SUMMARY | 2024-05-01 10:19 | XMS_ITS | Encounter Summary ---
Author Organization [facility] Address [address] [place] [address] Care Team Providers Care Audit Spec Name Role Phone Suhail Lemus M.D. Primary Care Provider [phone] Encounter Details Date Type Department Care Team (Late st Contact Info) Description 07/25/2012 Historical Ophthalmology RST OPH Agnieszka Harrison M.D. Social History Tobacco Use Types Packs/Day Years Used Date Smoking Tobacco: Never Assessed Comments Unknown Sex and Gender Information Value Date Recorded Sex Assigned at Not on file Legal Sex Female 10:29 AM CLEAN IN PLACES OPERATOR Gender Identity Not on file Sexual Orientation [...] sclera, left CDM Reports - EYEGEN Id: [id number] Status: Fnl documented in this encounter Plan of Treatment Upcoming Encounters Date Type Department Care Team (Late st Contact Info) Description 05/01/2024 2:00 PM CLEAN IN PLACES OPERATOR Office Visit Department of Family Medicine, [facility], in [address] [phone] Lauren Perez M.D. [address] [place] [phone] documented as of this encounter Visit Diagnoses Not on filedocumented in this encounter Additional Health Concerns Infection Onset Date Last Indicated Resolved Time COVID19 Pending 10/28/2019 10/28/2019 10/28/2019 1 0:14 PM CDT COVID19 Pending 10/28/2019 10/28/2019 10/30/2019 2 :23 AM CDT COVID19 Pending 12/25/2019 12/25/2019 12/26/2019 2 :16 PM CDT COVID19 Pending 03/17/2020 03/17/2020 03/18/2020 2 :39 PM CLEAN IN PLACES OPERATOR COVID19 11/14/2022 11/14/2022 12/04/2022 5:47 AM CDT documented as of this encounter Care Teams Audit Spec Relationship Specialty Start Date End Date Suhail Lemus M.D. [address] [place] [phone] PCP - General Family Medicine 09/19/17 documented as of this encounter
--- OUTSIDE RECORDS SUMMARY | 2024-05-01 10:19 | XMS_ITS | Clinical Summary ---
Author Organization [employer] [facility] Address [place], [place] [address] Care Team Providers Care Cokeman Name Role Phone Pcp, No Primary Care [...] on file Legal Sex Female 7:40 AM LOADER ENGINEER Gender Identity Not on file Sexual Orientation Not on file Obstetrics History Last Filed Vital Signs Vital Sign Reading Time Taken Comments Blood Pressure 145/86 03/03/2021 8:55 AM LOADER ENGINEER Pulse 96 03/03/2021 8:48 AM LOADER ENGINEER Temperature 36.8 C (98.2 F) 03/03/2021 8:48 AM LOADER ENGINEER Respiratory Rate 18 03/03/2021 8:48 AM LOADER ENGINEER Oxygen Saturation 95% 03/03/2021 8:48 AM LOADER ENGINEER Inhaled Oxygen Concentration - - Weight 130.2 kg (287 lb) 04/23/2019 9:33 AM LOADER ENGINEER Height 158 cm (5' 2.21) 12/17/2018 9:03 [...] Comments ANTI HCV Routine 04/23/2019 10:10 AM LOADER ENGINEER Need for hepatitis C screening test from Last 3 Months or Most Recently Relevant to Health Maintenance Results * ANTI HCV (04/23/2019 10:10 AM LOADER ENGINEER) HEPATITIS C ANTIBODY Non-React molina Non-React molina 04/23/2019 7:19 PM LOADER ENGINEER [facility] Comment:Antibodies to HCV no t detected; does not exclude the possibility of exposure to HCV. Blood BLOOD SPECIMEN / Unknown Venipuncture / Unknown 04/23/2019 10:10 AM LOADER ENGINEER 04/23/2019 10:13 AM LOADER ENGINEER us Kamilla VALLEJO SEND OUTS Final Resu lt [facility] [address] [place] [address], [place] from Last 3 Months or Most Recently Relevant to Health Maintenance Insurance [id number] [facility] [address] MEDICARE PB ONLY [place] [address] Care Teams Cokeman Relationship Specialty Start Date End Date Pcp, No . PCP - General 02/23/21
--- OUTSIDE RECORDS SUMMARY | 2024-05-01 10:19 | XMS_ITS | Encounter Summary ---
Author Organization [facility] Address [address] [place] [address] Care Team Providers Care Day Treatment Clinician/Art Therapist Name Role Phone Suhail Lemus M.D. Primary Care Provider [phone] Reason for Visit * Reason Onset Date Comments Abdominal Pain 04/30/2024 Encounter Details Date Type Department Care Team (Late st Contact Info) Description 04/30/2024 Nurse Triage Department of Family Medicine, [facility], in [address] [phone] Megan Boggs RSariahN. [address] [place] [address] Abdominal Pain Social History Tobacco Use Types [...] on file Legal Sex Female 10:29 AM OVERLOCK WAISTLINE JOINER Gender Identity Not on file Sexual Orientation Not on file documented as of this encounter Miscellaneous Notes * Telephone Encounter - Megan Boggs RSariahN. - 04/30/2024 2:15 PM OVERLOCK WAISTLINE JOINER Chief Complaint / Reason for Call Patient [...] able to teach back Abdominal Pain - [id number]-CS Nurse Megan Schroeder Apr 30, 2024 02:20 [...] 4 weeks.) Protocols used: Abdominal Pain - [facility] LOCK WAISTLINE JOINER documented in this encounter Plan of Treatment Upcoming Encounters Date Type Department Care Team (Late st Contact Info) Description 05/01/2024 2:00 PM OVERLOCK WAISTLINE JOINER Office Visit Department of Family Medicine, [facility], in [address] [phone] Lauren Perez M.D. [address] [place] [phone] documented as of this encounter Visit Diagnoses Not on filedocumented in this encounter Additional Health Concerns Assessment Noted Time PHQ-9 Depression Total Score: 15 024 11:02 AM CDT documented as of this encounter Care Teams Day Treatment Clinician/Art Therapist Relationship Specialty Start Date End Date Suhail Lemus M.D. [phone] [phone] PCP - General Family Medicine 09/19/17 documented as of this encounter
--- OUTSIDE RECORDS SUMMARY | 2024-05-01 10:19 | XMS_ITS | Encounter Summary ---
Author Organization [facility] Address [address] [place] [address] Care Team Providers Care Deposit Refund Clerk Name Role Phone Suhail Lemus M.D. Primary Care Provider [phone] Encounter Details Date Type Department Care Team (Late st Contact Info) Description 09/23/2014 Historical Ophthalmology [facility] Alicia Lay M.D. Social History Tobacco Use Types Packs/Day Years Used Date Smoking Tobacco: Never Assessed Comments Unknown Sex and Gender Information Value Date Recorded Sex Assigned at Not on file Legal Sex Female 10:29 AM CRM SYSTEM ADMINISTRATOR Gender Identity Not on file Sexual Orientation [...] on CPAP CDM Reports - EYEGEN Id: [id number] Status: Fnl documented in this encounter Plan of Treatment Upcoming Encounters Date Type Department Care Team (Late st Contact Info) Description 05/01/2024 2:00 PM CRM SYSTEM ADMINISTRATOR Office Visit Department of Family Medicine, [facility], in [address] [phone] Lauren Perez M.D. [address] [place] [phone] documented as of this encounter Visit Diagnoses Not on filedocumented in this encounter Additional Health Concerns Infection Onset Date Last Indicated Resolved Time COVID19 Pending 10/28/2019 10/28/2019 10/28/2019 1 0:14 PM CDT COVID19 Pending 10/28/2019 10/28/2019 10/30/2019 2 :23 AM CDT COVID19 Pending 12/25/2019 12/25/2019 12/26/2019 2 :16 PM CDT COVID19 Pending 03/17/2020 03/17/2020 03/18/2020 2 :39 PM CRM SYSTEM ADMINISTRATOR COVID19 11/14/2022 11/14/2022 12/04/2022 5:4 7 AM CDT Assessment Noted Time PHQ-9 Depression Total Score: 3 05/13/19 14 2:06 PM CRM SYSTEM ADMINISTRATOR documented as of this encounter Care Teams Deposit Refund Clerk Relationship Specialty Start Date End Date Suhail Lemus M.D. [address] [place] [phone] PCP - General Family Medicine 09/19/17 documented as of this encounter
--- OUTSIDE RECORDS SUMMARY | 2024-05-01 10:19 | XMS_ITS | Encounter Summary ---
Author Organization [facility] Address [address] [place] [address] Care Team Providers Care Aurist Name Role Phone Suhail Lemus M.D. Primary Care Provider [phone] Encounter Details Date Type Department Care Team (Late st Contact Info) Description 07/28/2012 Historical Ophthalmology [facility] OPH Agnieszka Harrison M.D. Social History Tobacco Use Types Packs/Day Years Used Date Smoking Tobacco: Never Assessed Comments Unknown Sex and Gender Information Value Date Recorded Sex Assigned at Not on file Legal Sex Female 10:29 AM BELLY DANCER Gender Identity Not on file Sexual Orientation [...] sclera, left CDM Reports - EYEGEN Id: [id number] Status: Fnl documented in this encounter Plan of Treatment Upcoming Encounters Date Type Department Care Team (Late st Contact Info) Description 05/01/2024 2:00 PM BELLY DANCER Office Visit Department of Family Medicine, [facility], in [address] [phone] Lauren Perez M.D. [address] [place] [phone] documented as of this encounter Visit Diagnoses Not on filedocumented in this encounter Additional Health Concerns Infection Onset Date Last Indicated Resolved Time COVID19 Pending 10/28/2019 10/28/2019 10/28/2019 1 0:14 PM CDT COVID19 Pending 10/28/2019 10/28/2019 10/30/2019 2 :23 AM CDT COVID19 Pending 12/25/2019 12/25/2019 12/26/2019 2 :16 PM CDT COVID19 Pending 03/17/2020 03/17/2020 03/18/2020 2 :39 PM BELLY DANCER COVID19 11/14/2022 11/14/2022 12/04/2022 5:47 AM CDT documented as of this encounter Care Teams Aurist Relationship Specialty Start Date End Date Suhail Lemus M.D. [address] [place] [phone] PCP - General Family Medicine 09/19/17 documented as of this encounter
--- OUTSIDE RECORDS SUMMARY | 2024-05-01 10:19 | XMS_ITS | Clinical Summary ---
Author Organization [facility] Address [address] [place] [address] Care Team Providers Care Television Picture Tube Rebuilder Name Role Phone Suhail Lemus M.D. Primary Care Provider [phone] Source Comments Patient records contain information from all sites at [facility]. For routine questions regarding patient records, call [phone] during business hours, M-F 8:00 AM - 5:00 PM Central Time. Record requests for emergency care only can be directed to [phone] at any time.[facility] Allergies No known active allergies Medications nystatin [...] Team Description 05/01/2024 Nurse Triage Department of [facility], [facility], [address] [phone] Faith Cullen R.N. Follow-up 04/30/2024 Nurse Triage Department of [facility], [facility], [address] [phone] Megan Boggs R.N. Abdominal Pain 04/30/2024 Clinical Communication Department of Family [facility], [address] [phone] Suhail Lemus M.D. Communication 04/01/2024 Orders Only Department of Family Medicine, [facility], [address] [phone] Suhail Lemus M.D. 03/05/2024 Clinical Communication Department of Family Medicine, [facility], [address] [phone] Suhail Lemus M.D. Other (Claustrophobia ) 02/14/2024 Refill Department of Family Medicine, [facility], in [address] [phone] Sheila Grace APRN, C.N.P. Med Change Request 02/14/2024 Refill Department of Family Medicine, [facility], in [address] [phone] Suhail Lemus M.D. Med Refill 02/07/2024 11:40 AM METER READER INSPECTOR Hospital Encounter Department of Laboratory Medicine in [address] [phone] Juanita Conley M.D. History Of Falling; Injury Head Initial Discharge Disposition: Home or Self Care 02/07/2024 11:39 AM METER READER INSPECTOR Hospital Encounter Department of Radiology in [address] [phone] Juanita Conley M.D. History Of Falling; Injury Head Initial; Pain Back Lumbar Discharge Disposition: Home or Self Care 02/07/2024 11:39 AM METER READER INSPECTOR Hospital Encounter Department of Radiology in [address] [place] [address] Juanita Conley M.D. History Of Falling; Injury Head Initial; Pain Thoracic Spine Discharge Disposition: Home or Self Care 02/07/2024 11:39 AM METER READER INSPECTOR Hospital Encounter Department of Radiology in [address] [phone] Juanita Conley M.D. History Of Falling; Injury Head Initial; Pain Cervical Discharge Disposition: Home or Self Care 02/07/2024 11:39 AM METER READER INSPECTOR Hospital Encounter Department of Radiology in [address] [phone] Juanita Conley M.D. History Of Falling; Injury Head Initial; Pain Shoulder Right Discharge Disposition: Home or Self Care 02/07/2024 11:39 AM METER READER INSPECTOR Hospital Encounter Department of Radiology in [address] [phone] Juanita Conley M.D. History Of Falling; Injury Head Initial; Pain Shoulder Right Discharge Disposition: Home or Self Care 02/07/2024 11:00 AM METER READER INSPECTOR Office Visit Department of Family Medicine, [facility], in [address] [phone] Juanita Conley M.D. History Of Falling (Primary Dx); Injury Head Initial; Pain Shoulder Right; Pain Cervical; Pain Thoracic Spine; Pain Back Lumbar Discharge Disposition: Home or Self Care 02/06/2024 Nurse Triage Department of Family Medicine, [facility], in [address] [phone] Jada Sanches R.N. Back Pain from Last [...] on file Legal Sex Female 10:29 AM METER READER INSPECTOR Gender Identity Not on file Sexual Orientation Not on file Last Filed Vital Signs Vital Sign Reading Time Taken Comments Blood Pressure 139/83 02/07/2024 11:02 AM METER READER INSPECTOR Pulse 97 02/07/2024 11:02 AM METER READER INSPECTOR Temperature 36.9 C (98.4 F) 02/07/2024 11:02 AM METER READER INSPECTOR Respiratory Rate 15 09/19/2022 4:05 PM CDT Oxygen Saturation 93% 02/07/2024 11:02 AM METER READER INSPECTOR Inhaled Oxygen Concentration - - Weight 104 kg (228 lb 2.9 oz) 02/07/2024 11:02 A M METER READER INSPECTOR Height 158.5 cm (5' 2.4) 08/19/2023 10:52 AM CD T Body Mass Index 41.2 08/19/2023 10:52 AM CDT Plan of Treatment Upcoming Encounters Date Type Department Care Team (Late st Contact Info) Description 05/01/2024 2:00 PM METER READER INSPECTOR Office Visit Department of Family Medicine, [facility], in [address] [phone] Lauren Perez M.D. [address] [place] [phone] Health Maintenance Due Date Last Done Comments [...] inpatients and all outpatients) 02/07/2024 12:31 PM METER READER INSPECTOR History Of Falling Injury Head Initial Pain Back Lumbar DX THORACIC SPINE 2 VIEWS RAD - Routine (most inpatients and all outpatients) 02/07/2024 12:31 PM METER READER INSPECTOR History Of Falling Injury Head Initial Pain Thoracic Spine DX CERVICAL SPINE 2-3 VIEWS RAD - Routine (most inpatients and all outpatients) 02/07/2024 12:29 PM METER READER INSPECTOR History Of Falling Injury Head Initial Pain Cervical DX HUMERUS RIGHT 2 VIEWS RAD - Routine (most inpatients and all outpatients) 02/07/2024 12:28 PM METER READER INSPECTOR History Of Falling Injury Head Initial Pain Shoulder Right DX SHOULDER RIGHT 2+ VIEWS RAD - Routine (most inpatients and all outpatients) 02/07/2024 12:25 PM METER READER INSPECTOR History Of Falling Injury Head Initial Pain Shoulder Right BASIC METABOLIC PANEL, S/P Routine 02/07/2024 11:52 AM METER READER INSPECTOR History Of Falling Injury Head Initial CBC WITH DIFFERENTIAL, B Routine 02/07/2024 11:52 AM METER READER INSPECTOR History Of Falling Injury Head Initial ALBUMIN, [...] Lumbar Spine 2-3 Views (02/07/2024 12:31 PM METER READER INSPECTOR) Anatomical Region Laterality Modality Lumbar Spine, Musculoskeleta l RST LOS, Neuroradiology ARZ LOS, Muskuloskeletal FLA LOS N/A Digital Radiography Impressions 02/07/2024 1:51 PM METER READER INSPECTOR Transitional anatomy. There appear to be 11 [...] comparison CT 09/12/2020. Narrative 02/07/2024 1:51 PM METER READER INSPECTOR EXAM: DX THORACIC SPINE 2 VIEWS, DX [...] Thoracic Spine 2 Views (02/07/2024 12:31 PM METER READER INSPECTOR) Anatomical Region Laterality Modality Thoracic Spine, Musculoskele zenon RST LOS, Neuroradiology ARZ LOS, Muskuloskeletal FLA LOS N/A Digita l Radiography Impressions 02/07/2024 1:51 PM METER READER INSPECTOR Transitional anatomy. There appear to be 11 [...] comparison CT 09/12/2020. Narrative 02/07/2024 1:51 PM METER READER INSPECTOR EXAM: DX THORACIC SPINE 2 VIEWS, DX [...] comparison CT 09/12/2020. us Juanita Conley M.D. [facility] PRO CEDURES Final Result * DX Cervical Spine 2-3 Views (02/07/2024 12:29 PM METER READER INSPECTOR) Anatomical Region Laterality Modality Cervical Spine, Musculoskele zenon RST LOS, Neuroradiology ARZ LOS, Muskuloskeletal FLA LOS N/A Digita l Radiography Impressions 02/07/2024 1:43 PM METER READER INSPECTOR Moderate to advanced facet degeneration bilaterally throughout the cervical spine. Mild multilevel degenerative disc disease. Accentuated thoracic kyphosis. Ossification of the nuchal ligament. Presumed consultations carotid bulb on the left. If there is persistent moderate or worsening concern for fracture, CT on MRI would be appropriate. Narrative 02/07/2024 1:43 PM METER READER INSPECTOR EXAM: DX CERVICAL SPINE 2-3 VIEWS Procedure Note Ede Hoffman M.D. - 02/07/2024 EXAM: DX CERVICAL SPINE 2-3 VIEWS IMPRESSION: Moderate to advanced facet degeneration bilaterally throughout thecervical spine. Mild multilevel degenerative disc disease. Accentuatedthoracic kyphosis. Ossification of the nuchal ligament. Presumedconsultations carotid bulb on the left. If there is persistent moderate or worsening concern for fracture, CT onMRI would be appropriate. us Juainta Conley M.D. [facility] PRO CEDURES Final Result * DX Humerus Right 2 Views (02/07/2024 12:28 PM METER READER INSPECTOR) Anatomical Region Laterality Modality Upper Extremity, Humerus, Mu sculoskeletal RST LOS, Musculoskeletal ARZ LOS, Muskuloskeletal FLA LOS Right Digit al Radiography Impressions 02/07/2024 1:42 PM METER READER INSPECTOR No direct comparison. 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 Alignment normal. No acute fracture. In the right humerus, there is no acute fracture or periosteal reaction. Narrative 02/07/2024 1:42 PM METER READER INSPECTOR EXAM: DX SHOULDER RIGHT 2+ VIEWS, DX [...] or periosteal reaction. us Juanita Conley M.D. [facility] PRO [email or web address] Final Result * DX Shoulder Right 2+ Views (02/07/2024 12:25 PM METER READER INSPECTOR) Anatomical Region Laterality Modality Upper Extremity, Shoulder, M usculoskeletal RST LOS, Musculoskeletal ARZ LOS, Muskuloskeletal FLA LOS Right Digit al Radiography Impressions 02/07/2024 1:42 PM METER READER INSPECTOR No direct comparison. 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 Alignment normal. No acute fracture. In the right humerus, there is no acute fracture or periosteal reaction. Narrative 02/07/2024 1:42 PM METER READER INSPECTOR EXAM: DX SHOULDER RIGHT 2+ VIEWS, DX [...] or periosteal reaction. us Juanita Conley M.D. [facility] PRO CEDURES Final Result * (ABNORMAL) CBC with Differential, Blood (02/07/2024 11:52 AM METER READER INSPECTOR) [facility] Hemoglobin 15.7(H) 11.6 - 15.0 g/dL 02/07/2024 11:59 AM METER READER INSPECTOR CNFL Hematocrit 49.8(H) 35.5 - 44.9 % 02/07/2024 11:59 AM METER READER INSPECTOR CNFL Erythrocytes 5.92(H) 3.92 - 5.13 x10(12)/L 02/07/2024 11:59 AM METER READER INSPECTOR CNFL MCV 84.1 78.2 - 97.9 fL 02/07/2024 11:59 AM METER READER INSPECTOR CNFL RBC Distrib Width 15.2 12.2 - 16.1 % 02/07/2024 11:59 AM METER READER INSPECTOR CNFL Platelet Count 250 157 - 371 x10(9)/L 02/07/2024 11:59 AM METER READER INSPECTOR CNFL Leukocytes 8.9 3.4 - 9.6 x10(9)/L 02/07/2024 11:59 AM METER READER INSPECTOR CNFL Neutrophils 7.00(H) 1.56 - 6.45 x10(9)/L 02/07/2024 11:59 AM METER READER INSPECTOR CNFL Lymphocytes 1.25 0.95 - 3.07 x10(9)/L 02/07/2024 11:59 AM METER READER INSPECTOR CNFL Monocytes 0.50 0.26 - 0.81 x10(9)/L 02/07/2024 11:59 AM METER READER INSPECTOR CNFL Eosinophils 0.09 0.03 - 0.48 x10(9)/L 02/07/2024 11:59 AM METER READER INSPECTOR CNFL Basophils 0.04 0.01 - 0.08 x10(9)/L 02/07/2024 11:59 AM METER READER INSPECTOR CNFL Blood (Blood, Venous) 02/07/2024 11:52 AM METER READER INSPECTOR 02/07/2024 11:54 AM METER READER INSPECTOR us Juanita Conley M.D. LAB BLOOD ADD-ON Final Res ult [facility] [address] [place] [id number], [facility] [place] [address] * (ABNORMAL) Basic Metabolic Panel (02/07/2024 11:52 AM METER READER INSPECTOR) Potassium, P 3.9 3.6 - 5.2 mmol/L 02/07/2024 12:13 PM METER READER INSPECTOR CNFL Sodium, P 141 135 - 145 mmol/L 02/07/2024 12:13 PM METER READER INSPECTOR CNFL Chloride, P 102 98 - 107 mmol/L 02/07/2024 12:13 PM METER READER INSPECTOR CNFL Bicarbonate, P 34(H) 22 - 29 mmol/L 02/07/2024 12:13 PM METER READER INSPECTOR CNFL Anion Gap, P 5(L) 7 - 15 02/07/2024 12:13 PM METER READER INSPECTOR CNFL BUN (Blood Urea Nitrogen), P 15 6 - 21 mg/dL 02/07/2024 12:13 PM METER READER INSPECTOR CNFL Creatinine 0.84 0.59 - 1.04 mg/dL 02/07/2024 12:13 PM METER READER INSPECTOR CNFL Estimated GFR (eGFR) 71 >=60 mL/min/BSA 02/07/2024 12:13 PM METER READER INSPECTOR CNFL Comment: Estimated GFR calculated using the 2020 CKD_EPI creatinine equation. Calcium, Total, P 9.7 8.8 - 10.2 mg/dL 02/07/2024 12:13 PM METER READER INSPECTOR CNFL Glucose, P 117 70 - 140 mg/dL 02/07/2024 12:13 PM METER READER INSPECTOR CNFL Blood (Blood, Venous) 02/07/2024 11:52 AM METER READER INSPECTOR 02/07/2024 11:54 AM METER READER INSPECTOR Juanita Conley M.D. LAB BLOOD ADD-ON Final Res ult [facility] [address] [place] [address], [facility] CNFL [facility] in [address] [address] * Albumin, Random, Urine (08/19/2023 12:14 PM [...] ORDERABLES Elena l Result Performing Organization Address [facility] Co de Phone Number [facility] [address] [place] [address], [address] [address] * (ABNORMAL) Hemoglobin A1c (08/19/2023 12:03 PM [...] Bailey M.D. LAB BLOOD ADD-ON Final Result [facility] [address] [place] [phone], [address] [address] * Cologuard-Sent Out Lab (09/20/2020 7:30 PM [...] (Courtney Vick al, N Engl J Med 2014;370(14):5727-6338) The normal value (reference range) for this assay is negative. COLOGUARD RE-SCREENING RECOMMENDATION: Periodic colorectal cancer screening is an important part of preventive healthcare for asymptomatic individuals at average risk for colorectal cancer. Following a negative Cologuard result, the [place] [employer] Society and U.S. Multi-Society Task Force screening guidelines recommend a Cologuard re-screening interval of 3 years. References: [place] [employer] Guideline for Colorectal Cancer Screening: https://www.cancer.org/cancer/lkqze-satmui-pcbxgx/detection- diagnosis-staging/acs-recommendations.html.; Bashir DK, Marie MOYA, Karen ReichK, Colorectal Cancer Screening: Recommendations for Physicians and Patients from the U.S. Multi-Society Task Force on Colorectal Cancer Screening , Am J Gastroenterology 2017; 112:2518-4726. TEST DESCRIPTION: Composite algorithmic analysis of stool [...] (Courtney Vick al, N Engl J Med 2014;370(14):0782-7310.) Cologuard may produce a false negative or false positive result (no colorectal cancer or precancerous polyp present at colonoscopy follow up). A negative Cologuard test result does not guarantee the absence of CRC or advanced adenoma (pre-cancer). The current Cologuard screening interval is every 3 years. ([place] [employer] Society and U.S. Multi-Society Task Force). Cologuard performance data in a 10,000 patient pivotal study using colonoscopy as the reference method can be accessed at the following location: www.eCullet.Smart Plate/results. Additional description of the Cologuard test process, warnings and precautions can be found at www.cologuard.com. Stool (Stool) 09/20/2020 7:3 0 PM CDT 09/23/2020 2:57 PM CDT us Lise Espinosa LAB BODY FLUIDS AND STOOLS O RDERABLES Final Result Performing Organization Address [facility] Co de Phone Number Impraise [address] [place] [address] EXLI Room [address] [facility], [address] [place] [address] * Eyes Color-Ophthalmology Image Exam (05/28/2019 10:05 [...] PROCE DURES Final Result Performing Organization Address [facility] Co de Phone Number IIMS NA * HCV Ab Scrn w/Reflex to HCV PCR, Serum (09/30/2017 3:08 PM CDT) HCV Ab Screen, S Nonreactive Nonreactive 10/01/2017 10:53 AM CDT [facility] Blood (Blood, Venous) 09/30/2017 3:08 PM CDT 09/30/2017 10:06 PM CDT Narrative [facility] - 10/01/2017 10:53 AM CDT Specimen Information: Specimen ID: [id number] Specimen Type: Blood Specimen Collection Start Date: 09/30/2017 3:08 PM Specimen Received Date: 09/30/2017 10:06 PM Specimen ID: [id number] Specimen Type: Blood Specimen Collection Start Date: 09/30/2017 3:09 PM Specimen Received Date: 09/30/2017 10:06 PM Suhail Lemus M.D. LAB MICROBIOLOGY - BLOOD ORDERABLES Final Result [facility] [address] [place] [address] from Last 3 Months or Most Recently Relevant to Health Maintenance Insurance [facility]ICARE [facility] CTSpace Care Teams Television Picture Tube Rebuilder Relationship Specialty Start Date End Date Suhail Lemus M.D. [address] [place] [phone] PCP - General Family Medicine 09/19/17
--- OUTSIDE RECORDS SUMMARY | 2024-05-01 10:19 | XMS_ITS | Encounter Summary ---
Author Organization [facility] Address [address] [place] [address] Care Team Providers Care Supervisor Plate Forming Name Role Phone Suhail Lemus M.D. Primary Care Provider [phone] Reason for Visit * Reason Onset Date Comments Follow-up 05/01/2024 Encounter Details Date Type Department Care Team (Late st Contact Info) Description 05/01/2024 Nurse Triage Department of Family Medicine, [facility], in [address] [phone] Faith Cullen RSariahNSariah [address] [place] [address] Follow-up Social History Tobacco Use Types Packs/Day [...] on file Legal Sex Female 10:29 AM SLIP INJECTOR AND APPLICATOR Gender Identity Not on file Sexual Orientation [...] recommended disposition is Go to ED Now. INJECTOR AND APPLICATOR documented in this encounter Plan of Treatment Upcoming Encounters Date Type Department Care Team (Late st Contact Info) Description 05/01/2024 2:00 PM SLIP INJECTOR AND APPLICATOR Office Visit Department of Family Medicine, [facility], in [address] [phone] Lauren Perez M.D. [address] [address] [place] [address] documented as of this encounter Visit Diagnoses Not on filedocumented in this encounter Additional Health Concerns Assessment Noted Time PHQ-9 Depression Total Score: 15 024 11:02 AM CDT documented as of this encounter Care Teams Supervisor Plate Forming Relationship Specialty Start Date End Date Suhail Lemus M.D. [id number] [place] [phone] PCP - General Family Medicine 09/19/17 documented as of this encounter
--- NOTE | 2024-05-01 10:24 | ED.GENADULT ---
HPI - General Adult General Chief complaint: Altered Mental Status Stated complaint: Altered Mental Status Time Seen by Provider: 05/01/24 09:47 Source: family and EMS Mode of arrival: EMS Limitations: altered mental status History of Present Illness HPI narrative: 78-year-old female arrives in the ED today via EMS for altered mental status. EMS states that they found her lying in bed unresponsive and hypoxic. I was able to discuss what happened with the patient's daughter who is her prop worker. Daughter states that for several months the patient has been declining in both cognition and in strength. Patient was living in no room in a shed on the daughter's property. Yesterday they moved her into the home because she was declining so significantly. Declined has been happening since this last fall. In the last week the decline has increased quite a bit. Patient has been talking minimally, has been more combative than usual, and has been unable to ambulate without assistance. The daughter had to get a wheelchairs sometime ago to help and that get around. She states that she will bring her mother food and her mother will throw it in the trash. She believes that she has lost over 100 lb since last fall. This morning patient's daughter helped her to the bathroom and when she put her back on the bed she did not have enough strength to push her bottom from the edge of the bed fully onto the bed and she became combative when assistance was provided. Because of this the daughter called 911. Point of care glucose in ambulance 131. Daughter is extremely distraught. Per family, patient is DNR DNI. Related Data Home Medications ?Medication ?Instructions ?Recorded ?Confirmed losartan 50 mg-hydrochlorothiazide tab 01/17/22 12.5 mg tablet Allergies Allergy/AdvReac Type Severity Reaction Status Date / Time No Known Drug Allergies Allergy Verified 12/22/21 21:10 Review of Systems Status of ROS: Reports: 10 or more systems reviewed and unremarkable except as noted in History and below PFSH PFS Social History Smoking Status: Former smoker Do you use any of these nicotine containing products: None How often do you have a drink containing alcohol: never AUDIT-C Alcohol total score: 0 Non-prescribed substance use: denies use Exam Narrative: Exam Narrative: Well-nourished patient, nonverbal. The patient is clearly dehydrated with dry skin and very dry mucous membranes. Tachycardic with a pulse of 1 100-105. Afebrile. Oxygen saturation drops to 79 on room air. She remains in the low to mid 90s on 2 L OxyMask. She appears to be breathing without difficulty or increased labored breathing. Her GCS is 8: Opens eyes to pain, no verbal response, and moves to localized pain. HEENT: Normocephalic atraumatic. Pupils are equally round reactive to light. Conjunctivae are slightly dry without any icterus noted. Very dry mucous membranes. Neck is soft . Cardiovascular: Heart is tachycardic, and regular rhythm. S1 and S2 are present without any murmurs. Lungs: Clear to auscultation bilaterally. Abdomen: Soft and nontender nondistended with normal bowel sounds. No masses or organomegaly appreciated. Extremities: Bilateral lower extremities show 1 to 2+ pitting edema Skin: Well perfused. Const: Vital Signs, click to edit/add: Vital Signs - 24 hr 05/01/24 09:45 05/01/24 09:47 05/01/24 09:49 Temperature 97.2 F L Pulse Rate Respiratory Rate Blood Pressure Pulse Oximetry 92 79 L Oxygen Delivery Me thod Room Air Oxygen Flow Rate 05/01/24 09:55 05/01/24 09:55 05/01/24 10:00 Temperature Pulse Rate 100 103 H Respiratory Rate 16 Blood Pressure 109/76 Pulse Oximetry 93 97 93 Oxygen Delivery Me thod OxyMask OxyMask OxyMask Oxygen Flow Rate 2 5 2 05/01/24 10:07 05/01/24 10:35 Temperature Pulse Rate 97 Respiratory Rate Blood Pressure 114/65 120/68 Pulse Oximetry 95 Oxygen Delivery Me thod Nasal Cannula Nasal Cannula Oxygen Flow Rate 2 2 Course Course ED Course: Differential diagnoses is broad but includes acute coronary syndrome, PE, stroke, intracranial hemorrhage, dementia with decompensation, pneumonia. 500 mL of normal saline over 1 hour was initiated. Upon arrival a head CT and chest x-ray were ordered. Neck angiogram were contemplated but ultimately not done secondary to needing the contrast for the PE study which was more important at this time given that the patient was tachycardic and hypoxic. EKG, read by me, shows sinus tachycardia with premature supraventricular complexes, pulse 104. Chest x-ray, read by me, showed patchy opacities consistent with probable atelectasis. Labs consistent with dehydration with an RBC elevated at 5.85, hemoglobin of 15.4 and hematocrit of 52.2. Normal white blood cell count. 90.3% neutrophils. D-dimer was elevated at 1.29. Chest CT was ordered at this time. Chloride slightly low at 91 carbon dioxide slightly high at 33. Normal sodium and potassium. Glucose 162. Lactate elevated to 4. LFTs slightly elevated. Point of care troponin was elevated at 0.42. Salicylates, acetaminophen alcohol levels were negative. Triple swab was negative. A troponin I was elevated at 0.73. Head CT was unremarkable. Heparin initiated at this time. Chest CT did not show any evidence of PE or lung pathology. Radiologist did mention reflux into the IVC consistent with cardiac dysfunction. Discussed the patient with Dr. Dillard at [facility] who has accepted the patient for transferred as a non-STEMI. Vital Signs Vital signs: Initial Vital Signs Temperature 97.2 F L 05/01/24 09:45 Temperature Source Temporal Artery Scan 05/01/24 09:45 Vital Signs Temperature 97.2 F L 05/01/24 09:45 Temperature 97.2 F L 05/01/24 09:45 Pulse Rate 97 05/01/24 10:35 Respiratory Rate 16 05/01/24 10:00 Blood Pressure 120/68 05/01/24 10:35 Pulse Oximetry 95 05/01/24 10:35 Oxygen Delivery Method Nasal Cannula 05/01/24 10:35 Oxygen Flow Rate 2 05/01/24 10:35 Medications Administered Medications: Generic Name Dose Route Start Last Admin Trade Name Freq PRN Reason Stop Dose Admin Heparin Sodium/Dextrose 25,000 unit in 500 mls @ 0 mls/hr 05/01/24 11:15 05/01/24 11:13 Heparin IV 1,000 unit/hr .Q0M XIMENA 20 mls/hr Administration Protocol Per Protocol Discontinued Medications Generic Name Dose Route Start Last Admin Trade Name Freq PRN Reason Stop Dose Admin Heparin Sodium (Porcine) 4,000 unit 05/01/24 11:05 05/01/24 11:13 Heparin 5,000 Unit/0.5 Ml Inj IVP 05/01/24 11:06 4,000 unit ONCE ONE Administration Sodium Chloride 500 mls @ 500 mls/hr 05/01/24 09:47 05/01/24 11:11 0.9 % Sodium Chloride 500 Ml IV 05/01/24 10:46 500 mls/hr .Q1H ONE Administration Medical Decision Making MDM Narrative Medical decision making narrative: A 78-year-old female presenting with altered mental status, likely secondary to non STEMI. Patient will be transferred to [facility] for management. Lab Data Lab results reviewed: Yes I reviewed the patient's lab results Labs: Lab Results 05/01/24 05/01/24 05/01/24 Range/Units 09:49 09:51 09:59 WBC 11.00 (4.50-11.00) K/uL RBC 5.85 H (4.00-5.20) m/uL Hgb 15.4 (12.0-16.0) gm/dL Hct 52.2 H (33.0-51.0) % MCV 89 (80-100) fL MCH 26 (26-34) pg MCHC 30 L (32-36) gm/dL RDW Coeff of Corazon 15.7 H (11.5-15.5) % Plt Count 256 (140-440) K/uL Neut % (Auto) 90.3 H (42.0-72.0) % Lymph % (Auto) 2.9 L (20-44) % Letcher % (Auto) 5.6 (0.0-11.0) % Eos % (Auto) 0.0 (0.0-7.0) % Baso % (Auto) 0.0 (0.0-3.0) % Neut # (Auto) 9.90 H (1.7-7.0) K/uL Lymph # (Auto) 0.30 L (0.90-2.90) K/uL Letcher # (Auto) 0.60 (0.00-0.90) K/UL Eos # (Auto) 0.00 (0.00-0.50) K/uL Baso # (Auto) 0.00 (0.00-0.30) K/uL Abs Immat Gran (auto) 0.13 (0.00-0.30) K/uL Imm/Tot Granulo (auto) 1.2 % D-Dimer Quant (PE/DVT) 1.29 H (0.00-0.50) ug/ml Sodium 136 (135-149) mmol/L Potassium 4.0 (3.6-5.1) mmol/L Chloride 91 L (96-114) mmol/L Carbon Dioxide 33 H (20-32) mmol/L Anion Gap 12 (7-15) mEq/L BUN 19 (7-30) mg/dL Creatinine 1.5 (0.5-1.5) mg/dL Estimated GFR 35 ml/min Glucose 162 H (60-115) mg/dL Lactate 2.4 H (0.5-1.9) mmol/L Calcium 9.2 (8.4-10.6) mg/dL Magnesium 1.9 (1.5-2.6) mg/dL Total Bilirubin 0.9 (0.1-1.5) mg/dL Direct Bilirubin 0.8 H (0.0-0.5) mg/dL AST 97 H (12-35) U/L ALT 79 H (4-35) U/L Alkaline Phosphatase 91 (40-150) U/L Troponin I 0.73 H* (0.01-0.04) ng/mL C-Reactive Protein 2.3 H (0.5-1.0) mg/dL NT-Pro-B Natriuret Pep 2440 pg/mL Total Protein 6.9 (6.0-8.3) g/dL Albumin 3.9 (3.3-5.0) g/dL Salicylates < 1.0 L (1.0-10) mg/dL Acetaminophen < 10.0 L (10.0-30.0) ug/mL Ethyl Alcohol < 0.00 L (0.01-0.03) % SARS-CoV-2 (PCR) Negative SARS-CoV-2 (Negative) Influenza Type A (PCR) Negative PCR FLU A (Negative) Influenza Type B (PCR) Negative PCR FLU B (Negative) RSV (PCR) Negative PCR RSV (Negative) POC Creatinine (0.6-1.3) mg/dl POC Troponin I 0.42 H (0.01-0.04) ng/ml 05/01/24 Range/Units 10:00 WBC (4.50-11.00) K/uL RBC (4.00-5.20) m/uL Hgb (12.0-16.0) gm/dL Hct (33.0-51.0) % MCV (80-100) fL MCH (26-34) pg MCHC (32-36) gm/dL RDW Coeff of Corazon (11.5-15.5) % Plt Count (140-440) K/uL Neut % (Auto) (42.0-72.0) % Lymph % (Auto) (20-44) % Letcher % (Auto) (0.0-11.0) % Eos % (Auto) (0.0-7.0) % Baso % (Auto) (0.0-3.0) % Neut # (Auto) (1.7-7.0) K/uL Lymph # (Auto) (0.90-2.90) K/uL Letcher # (Auto) (0.00-0.90) K/UL Eos # (Auto) (0.00-0.50) K/uL Baso # (Auto) (0.00-0.30) K/uL Abs Immat Gran (auto) (0.00-0.30) K/uL Imm/Tot Granulo (auto) % D-Dimer Quant (PE/DVT) (0.00-0.50) ug/ml Sodium (135-149) mmol/L Potassium (3.6-5.1) mmol/L Chloride (96-114) mmol/L Carbon Dioxide (20-32) mmol/L Anion Gap (7-15) mEq/L BUN (7-30) mg/dL Creatinine (0.5-1.5) mg/dL Estimated GFR ml/min Glucose (60-115) mg/dL Lactate (0.5-1.9) mmol/L Calcium (8.4-10.6) mg/dL Magnesium (1.5-2.6) mg/dL Total Bilirubin (0.1-1.5) mg/dL Direct Bilirubin (0.0-0.5) mg/dL AST (12-35) U/L ALT (4-35) U/L Alkaline Phosphatase (40-150) U/L Troponin I (0.01-0.04) ng/mL C-Reactive Protein (0.5-1.0) mg/dL NT-Pro-B Natriuret Pep pg/mL Total Protein (6.0-8.3) g/dL Albumin (3.3-5.0) g/dL Salicylates (1.0-10) mg/dL Acetaminophen (10.0-30.0) ug/mL Ethyl Alcohol (0.01-0.03) % SARS-CoV-2 (PCR) (Negative) Influenza Type A (PCR) (Negative) Influenza Type B (PCR) (Negative) RSV (PCR) (Negative) POC Creatinine 1.7 H (0.6-1.3) mg/dl POC Troponin I (0.01-0.04) ng/ml Imaging Data CT scan - chest: Attestation: I have reviewed the pertinent imaging results. Radiologist's impression: TECHNIQUE: CT chest PE was acquired with 95 cc Isovue 370 IV contrast. Vascular MIP reformations were constructed. COMPARISON: Earlier same day chest radiograph. FINDINGS: Heart and vasculature: Contrast opacification of the pulmonary arterial tree is adequate. No sign of pulmonary embolism. Heart size is overall normal. Thoracic aorta and pulmonary artery are normal in caliber. There is reflux of contrast into the IVC. Lungs and pleura: Mild bibasilar subsegmental atelectasis, right greater than left. No suspicious nodules or infiltrates. No pleural effusions, pleural thickening, or pneumothorax. Lymph nodes/mediastinum: No mediastinal, hilar, or axillary adenopathy. Chest wall: No masses. Upper abdomen: No acute or significant findings. Bones: Unremarkable for age. IMPRESSION: 1. No acute pulmonary embolism. 2. There is reflux of contrast into the IVC, which is suggestive of cardiac dysfunction. 3. Mild bibasilar subsegmental atelectasis. The lungs are otherwise clear. Chest x-ray: Attestation: I have reviewed the pertinent imaging results. Radiologist's impression: TECHNIQUE: Chest 1 view. COMPARISON: Chest radiographs dated 02/14/2017. FINDINGS: Cardiovasculature and mediastinum: Similar cardiomediastinal contours allowing for patient rotation. Lungs and pleural spaces: Mild streaky bibasilar opacities. No sign of pleural effusion. No pneumothorax. Bones and soft tissues: No acute findings. IMPRESSION: Mild streaky bibasilar opacities which are nonspecific, but may reflect atelectasis. CT scan - head: Attestation: I have reviewed the pertinent imaging results. Radiologist's impression: Altered mental status. COMPARISON: None. TECHNIQUE: CT of the brain / head without intravenous contrast. Multiplanar axial, coronal, and sagittal reformats were reconstructed. FINDINGS: No intracranial hemorrhage. Parenchymal volume is well preserved for age. No acute or subacute cortically based infarct. No mass or mass effect. Normal ventricles. No skull fractures. No worrisome focal bone lesion. ECG Data Attestation: I personally reviewed and interpreted this ECG as follows: Critical Care Time Critical Care Time Total Critical Care Time in Minutes: 60 Discharge Plan Discharge Clinical Impression: Non-ST elevated myocardial infarction Patient Disposition: [facility] Condition: Critical Prescriptions: No Action losartan-hydrochlorothiazide 50-12.5 mg tablet Patient Comments: TAKE 1 TABLET BY MOUTH EVERY DAY Follow Up/Referrals: Delano Lemus MD [Primary Care Provider] - Stand Alone Forms: [employer] Info Instructions
[2024-05-01 10:31] LABS: Chloride* 91 mmol/L (96-114); Sodium* 136 mmol/L (135-149)
[2024-05-01 10:32] LABS: Albumin* 3.9 g/dL (3.3-5.0)
[2024-05-01 10:33] LABS: Creatinine* 1.5 mg/dL (0.5-1.5); Estimated Glomerular Filt Rate 35 ml/min
[2024-05-01 10:34] LABS: Anion Gap 12 mEq/L (7-15); Blood Urea Nitrogen* 19 mg/dL (7-30); Carbon Dioxide* 33 mmol/L (20-32)
[2024-05-01 10:35] LABS: Alkaline Phosphatase* 91 U/L (40-150); Aspartate Amino Transferase* 97 U/L (12-35); Bilirubin Direct* 0.8 mg/dL (0.0-0.5); Bilirubin Total* 0.9 mg/dL (0.1-1.5); Calcium* 9.2 mg/dL (8.4-10.6); Glucose* 162 mg/dL (60-115); Magnesium* 1.9 mg/dL (1.5-2.6); Total Protein* 6.9 g/dL (6.0-8.3)
[2024-05-01 10:36] LABS: PCR FLU A Negative PCR FLU A (Negative); PCR FLU B Negative PCR FLU B (Negative); PCR RSV Negative PCR RSV (Negative); SARS PCR* Negative SARS-CoV-2 (Negative)
[2024-05-01 10:36] LABS: Alanine Aminotransferase* 79 U/L (4-35)
[2024-05-01 10:37] LABS: C Reactive Protein* 2.3 mg/dL (0.5-1.0)
[2024-05-01 10:41] LABS: Acetaminophen* < 10.0 ug/mL (10.0-30.0); Ethanol* < 0.00 % (0.01-0.03)
[2024-05-01 10:42] LABS: Salicylate* < 1.0 mg/dL (1.0-10)
[2024-05-01 10:48] LABS: NT Pro B Type NatriureticPept* 2440 pg/mL; Troponin I* 0.73 ng/mL (0.01-0.04)
[2024-05-01] MEDS: 0.9 % SODIUM CHLORIDE 500 ML 500 ML IV (11:11)
[2024-05-01 11:12] LABS: D Dimer Quantitative* 1.29 ug/ml (0.00-0.50)
[2024-05-01] MEDS: HEPARIN 5,000 UNIT/0.5 ML INJ 4000 UNIT IVP (11:13)
[2024-05-01] MEDS: HEPARIN 25,000 UNIT/500 ML BAG 20 UNIT IV (11:13)
[2024-05-01 11:54] LABS: Appearance Urine Slightly Cloudy (Clear); Bilirubin Urine 2+ (Negative); Blood Urine 2+ (Negative); Color Urine Yellow (Yellow); Glucose Urine Negative (Negative); Ketones Urine 1+ (Negative); Leukocyte Esterase Urine Negative (Negative); Nitrite Urine Negative (Negative); Protein Urine 2+ (Negative); Specific Gravity Urine 1.025 (1.000-1.030)
[2024-05-01 12:05] LABS: Squamous Epithelial Cell Urine Moderate (None-Few); WBC Urine 0-2 (0-5)
[2024-05-01 12:06] LABS: Amorphous Sediment Urine Few
[2024-05-01 12:07] LABS: Amphetamine Screen Urine Negative (Negative); Barbiturate Screen Urine Negative (Negative); Benzodiazepines Screen Urine Negative (Negative); Cannabinoid Screen Urine Negative (Negative); Cocaine Screen Urine Negative (Negative); Methadone Screen Urine Negative (Negative); Methamphetamines Screen Urine Negative (Negative); Opiate Screen Urine Negative (Negative); Oxycodone Screen Urine Negative (Negative); Phencyclidine Screen Urine Negative (Negative); Tricyclic Antidepressant Urine Negative (Negative)
[2024-05-01 12:08] LABS: Calcium Oxalate Crystals Urine Few; Coarse Granular Casts Urine Many
[2024-05-01 12:09] LABS: White Blood Cell Casts Urine Few
== END 2024-05-01 12:55 | disposition short-term general hospital (02) ==
PROVIDERS: Emergency Provider Family Medicine; PCP Student in an Organized Health Care Education/Training Program
DX: I21.4 Non-ST elevation (NSTEMI) myocardial infarction (principal)
CPT/HCPCS: 36415; 70450; 71045; 71275; 80048; 80076; 80143; 80179; 80306; 81001; 82077; 82565; 83605; 83735; 83880; 84484; 85025; 85379; 86140; 87086; 87631; 93005; 94761; 99285; 99291; J1644; J7030; Q9967

== ENCOUNTER 2024-05-01 12:40 | Outpatient (CLI) | payer MEDICARE, OTHER, SELFPAY | END 2024-05-01 12:41 | disposition home or self-care (01) | LOC: AMB 05-04 11:12 | PROVIDERS: PCP Student in an Organized Health Care Education/Training Program; Visit Provider Family Medicine | DX: I21.4 Non-ST elevation (NSTEMI) myocardial infarction (principal) | CPT/HCPCS: A0425; A0434 ==